=== PATIENT | male | born 1940 | race Caucasian/White ===

== ENCOUNTER 2018-06-18 13:13 | Outpatient (CLI) | payer MEDICARE, SELFPAY ==
[2018-06-18 13:42] LABS: Abs Immature Grans 0.01 k/cumm (0.0-0.09); Absolute Basophil Count 0.08 k/cumm (0.0-0.2); Absolute Eosinophil Count 0.06 k/cumm (0.0-0.7); Absolute Lymphocyte Count 1.01 k/cumm (1.2-3.4); Absolute Monocyte Count 0.54 k/cumm (0.11-0.7); Absolute Neutrophil Count 2.57 k/cumm (1.2-6.7); Basophils % 1.9; Eosinophils % 1.4; HGB 11.1 g/dL (13.5-17.5); Immature Grans % 0.2; Lymphocytes % 23.7; Mean Corp. HGB Concentration 31.7 g/dL (32.0-36.0); Mean Corpuscular Hemoglobin 33.6 pg (27.0-33.0); Mean Corpuscular Volume 106.1 fL (80-95); Mean Platelet Volume 8.5 fL (8.0-11.0); Monocytes % 12.6; Neutrophils % 60.2; Platelet Count 342 x1000/uL (130-400); RBC Distribution Width 17.2 % (11.8-14.1); White Blood Cell Count 4.27 k/cumm (4.4-10.8)
[2018-06-18 14:42] LABS: ALT 21 U/L (12-78); AST 19 U/L (15-37); Albumin 3.1 g/dL (3.4-5.0); Alkaline Phosphatase 81 U/L (46-116); Anion Gap 5.9 mmol/L (3-11); BUN 23 mg/dL (7-18); Bilirubin, Total 0.2 mg/dL (0.2-1.0); CO2 32.1 mmol/L (21.0-32.0); CREATININE 1.08 mg/dL (0.70-1.30); Calcium 8.2 mg/dL (8.5-10.1); Chloride 107 mmol/L (98-107); Glucose 110 mg/dL (70-100); Potassium 5.2 mmol/L (3.5-5.1); Sodium 145 mmol/L (136-145); Total Protein 6.1 g/dL (6.4-8.2)
[2018-06-19 10:14] LABS: PSA, Diagnostic 21.5 ng/ml (0-6.5)
[2018-06-20 17:07] LABS: Testosterone, Total <7.0 ng/dL (240-950)
== END 2018-06-18 13:14 ==
PROVIDERS: PCP Internal Medicine; Visit Provider Internal Medicine
DX: C61 Malignant neoplasm of prostate (principal)
CPT/HCPCS: 36415; 80053; 84403; 84153; 85025

== ENCOUNTER 2018-07-09 13:29 | Outpatient (CLI) | payer MEDICARE, SELFPAY ==
[2018-07-09 14:13] LABS: Abs Immature Grans 0.01 k/cumm (0.0-0.09); Absolute Basophil Count 0.05 k/cumm (0.0-0.2); Absolute Eosinophil Count 0.03 k/cumm (0.0-0.7); Absolute Lymphocyte Count 1.06 k/cumm (1.2-3.4); Absolute Monocyte Count 0.71 k/cumm (0.11-0.7); Absolute Neutrophil Count 4.06 k/cumm (1.2-6.7); Basophils % 0.8; Eosinophils % 0.5; HCT 33.3 % (40.0-50.0); HGB 10.5 g/dL (13.5-17.5); Immature Grans % 0.2; Lymphocytes % 17.9; Mean Corp. HGB Concentration 31.5 g/dL (32.0-36.0); Mean Corpuscular Hemoglobin 33.3 pg (27.0-33.0); Mean Corpuscular Volume 105.7 fL (80-95); Mean Platelet Volume 8.9 fL (8.0-11.0); Neutrophils % 68.6; Platelet Count 337 x1000/uL (130-400); RBC 3.15 m/cumm (4.50-6.00); RBC Distribution Width 16.9 % (11.8-14.1); White Blood Cell Count 5.92 k/cumm (4.4-10.8)
[2018-07-09 15:19] LABS: ALT 23 U/L (12-78); AST 22 U/L (15-37); Albumin 3.1 g/dL (3.4-5.0); Alkaline Phosphatase 85 U/L (46-116); BUN 32 mg/dL (7-18); Bilirubin, Total 0.2 mg/dL (0.2-1.0); CREATININE 1.21 mg/dL (0.70-1.30); Calcium 8.7 mg/dL (8.5-10.1); Chloride 107 mmol/L (98-107); Estimated GFR 58.15 (mL/min/1.73m2); Glucose 115 mg/dL (70-100); Potassium 4.9 mmol/L (3.5-5.1); Sodium 143 mmol/L (136-145)
[2018-07-10 10:28] LABS: PSA, Diagnostic 19.3 ng/ml (0-6.5)
[2018-07-11 08:04] LABS: Testosterone, Total <7.0 ng/dL (240-950)
== END 2018-07-09 13:49 ==
PROVIDERS: PCP Internal Medicine; Visit Provider Internal Medicine
DX: C61 Malignant neoplasm of prostate (principal); C79.51 Secondary malignant neoplasm of bone
CPT/HCPCS: 80053; 84403; 84153; 85025

== ENCOUNTER 2018-08-09 12:41 | Outpatient (CLI) | payer MEDICARE, SELFPAY ==
[2018-08-09 13:11] LABS: Absolute Basophil Count 0.02 k/cumm (0.0-0.2); Absolute Eosinophil Count 0.34 k/cumm (0.0-0.7); Absolute Lymphocyte Count 0.96 k/cumm (1.2-3.4); Absolute Monocyte Count 0.41 k/cumm (0.11-0.7); Absolute Neutrophil Count 2.37 k/cumm (1.2-6.7); Basophils % 0.5; Eosinophils % 8.3; HCT 37.6 % (40.0-50.0); HGB 11.9 g/dL (13.5-17.5); Lymphocytes % 23.4; Mean Corp. HGB Concentration 31.6 g/dL (32.0-36.0); Mean Corpuscular Hemoglobin 33.3 pg (27.0-33.0); Mean Corpuscular Volume 105.3 fL (80-95); Mean Platelet Volume 8.8 fL (8.0-11.0); Neutrophils % 57.8; Platelet Count 208 x1000/uL (130-400); RBC 3.57 m/cumm (4.50-6.00); RBC Distribution Width 15.3 % (11.8-14.1)
[2018-08-09 13:40] LABS: ALT 27 U/L (12-78); AST 22 U/L (15-37); Albumin 3.2 g/dL (3.4-5.0); Alkaline Phosphatase 85 U/L (46-116); Anion Gap 5.3 mmol/L (3-11); BUN 25 mg/dL (7-18); Bilirubin, Total 0.3 mg/dL (0.2-1.0); CO2 33.7 mmol/L (21.0-32.0); CREATININE 0.92 mg/dL (0.70-1.30); Chloride 105 mmol/L (98-107); Glucose 104 mg/dL (70-100); Potassium 4.1 mmol/L (3.5-5.1); Sodium 144 mmol/L (136-145); Total Protein 6.8 g/dL (6.4-8.2)
[2018-08-10 09:53] LABS: PSA, Diagnostic 29.7 ng/ml (0-6.5)
== END 2018-08-09 13:01 ==
PROVIDERS: PCP Internal Medicine; Visit Provider Nurse Practitioner Family
DX: C61 Malignant neoplasm of prostate (principal); C79.51 Secondary malignant neoplasm of bone
CPT/HCPCS: 36415; 80053; 84153; 85025

== ENCOUNTER 2018-08-10 00:35 | Outpatient (CLI) | payer MEDICARE, SELFPAY ==
[2018-08-10] MEDS: Omnipaque 350 MG/ML 50 ML BTL PO (08:52)
[2018-08-10] MEDS: Breeza Beverage 473 ML BTL PO ×2 (08:53→08:54)
--- NOTE | 2018-08-10 10:00 | DI.NM_ITS ---
SYMPTOMS/DIAGNOSIS: PROSTATE CA, METASTATIC, C61, RESTAGING EXAM WHOLE BODY BONE SCAN: Comparison is made with January,. 26.0 mCi of technetium 99m MDP were administered IV. Increased activity is again noted in multiple bilateral ribs in a linear fashion laterally consistent with previous trauma. Increased activity is also seen in both AC joints, likely representing degenerative change. The evaluation of the pelvis is limited by a distended urinary bladder. There is mildly increased activity in the upper thoracic spine. There are mild compression fractures seen on CT. There is again noted to be a large focus of increased activity involving the left side of the sacrum and medial aspect of the left ilium. The findings are grossly unchanged. IMPRESSION: Stable activity in the sacrum. Stable increased activity in the upper thoracic spine consistent with compression fractures. Increased activity in multiple ribs consistent with rib fractures.
--- NOTE | 2018-08-10 10:36 | DI.CT_ITS ---
SYMPTOMS/DIAGNOSIS: PROSTATE CA METASTATIC TO MULTIPLE SITES, C61, RESTAGING CT OF THE CHEST, ABDOMEN AND PELVIS: Comparison is made with January,. Images were performed from the clavicles through the ischial tuberosities after oral and IV contrast. CHEST CT: There has been increased size in previously noted mediastinal and hilar adenopathy. There has been enlargement in multiple right paratracheal nodes, as well as left paraaortic nodes. The pretracheal node is unchanged at 2.7 cm in greatest transverse dimension. The subcarinal adenopathy measures 4.7 cm transverse. No pleural or pericardial effusions are seen. Linear densities are noted at the left lung base. No pulmonary nodules, infiltrates or effusions are seen. There are stable mild compression fractures of T2 and T3. Multiple bilateral rib fractures are seen, which appear subacute. No lytic or blastic lesion is seen. ABDOMEN AND PELVIC CT: The large destructive lesion is again seen involving the sacrum with significant bony erosion of the right side of the sacrum and adjacent aspect of the medial ilium. Heterogeneous densities are also seen in the right sacrum and right ilium. Mixed lytic and sclerotic lesion is again seen in the L5 vertebral body. There is mild compression of the L3 vertebral body, which is unchanged. Lucencies are seen in both pubic symphyses, which appear unchanged. The findings could possibly represent radiation changes. A sclerotic lesion in the inferior right ilium is again noted. The liver, gallbladder, spleen, adrenals and pancreas are unremarkable. There are a few small renal cysts. The urinary bladder is quite distended. The patient is status post prostatectomy. There is no bladder wall thickening. There is a 1 cm subdiaphragmatic lymph node, to the right of the lower esophagus. Other tiny lymph nodes are seen along the aorta. There is a moderate to increased quantity of stool. There is no abnormal bowel dilatation or inflammatory change. IMPRESSION: Mild increase in size of hilar and mediastinal adenopathy. Bilateral rib fractures. Stable mild compression fractures of T2 and T3. Stable appearance of destructive metastatic lesion in the left side of the sacrum. Other heterogeneous areas are noted in the right side of the sacrum, as well as the pubic symphysis and in the L5 vertebral body. The findings could represent metastatic disease and/or radiation change. The findings appear stable.
[2018-08-10] MEDS: Omnipaque 350 MG/ML 100 ML BTL IJ (10:46)
== END 2018-08-10 00:55 ==
PROVIDERS: PCP Internal Medicine; Visit Provider Internal Medicine
DX: C61 Malignant neoplasm of prostate (principal); M48.54XD Collapsed vertebra, not elsewhere classified, thoracic region, subsequent encounter for fracture with routine healing; S22.42XD Multiple fractures of ribs, left side, subsequent encounter for fracture with routine healing; R59.0 Localized enlarged lymph nodes; D48.0 Neoplasm of uncertain behavior of bone and articular cartilage
CPT/HCPCS: 74177; 78306; 71260; J3490; Q9967

== ENCOUNTER 2018-09-24 12:52 | Outpatient (CLI) | payer MEDICARE, SELFPAY ==
[2018-09-24 13:31] LABS: Absolute Basophil Count 0.03 k/cumm (0.0-0.2); Absolute Eosinophil Count 0.27 k/cumm (0.0-0.7); Absolute Lymphocyte Count 1.29 k/cumm (1.2-3.4); Absolute Monocyte Count 0.43 k/cumm (0.11-0.7); Absolute Neutrophil Count 1.79 k/cumm (1.2-6.7); Basophils % 0.8; Eosinophils % 7.1; HCT 40.6 % (40.0-50.0); HGB 13.2 g/dL (13.5-17.5); Lymphocytes % 33.9; Mean Corp. HGB Concentration 32.5 g/dL (32.0-36.0); Mean Corpuscular Hemoglobin 33.1 pg (27.0-33.0); Mean Corpuscular Volume 101.8 fL (80-95); Mean Platelet Volume 8.8 fL (8.0-11.0); Monocytes % 11.3; Neutrophils % 46.9; Platelet Count 212 x1000/uL (130-400); RBC 3.99 m/cumm (4.50-6.00); RBC Distribution Width 14.5 % (11.8-14.1); White Blood Cell Count 3.81 k/cumm (4.4-10.8)
[2018-09-24 13:42] LABS: ALT 25 U/L (12-78); AST 21 U/L (15-37); Albumin 3.3 g/dL (3.4-5.0); Alkaline Phosphatase 85 U/L (46-116); Anion Gap 3.4 mmol/L (3-11); BUN 20 mg/dL (7-18); Bilirubin, Total 0.2 mg/dL (0.2-1.0); CO2 33.6 mmol/L (21.0-32.0); CREATININE 0.93 mg/dL (0.70-1.30); Chloride 106 mmol/L (98-107); Glucose 112 mg/dL (70-100); Potassium 4.7 mmol/L (3.5-5.1); Sodium 143 mmol/L (136-145)
[2018-09-25 09:55] LABS: PSA, Diagnostic 1.9 ng/ml (0-6.5)
[2018-09-27 11:38] LABS: Testosterone, Total <7.0 ng/dL (240-950)
== END 2018-09-24 13:12 ==
PROVIDERS: PCP Internal Medicine; Visit Provider Internal Medicine
DX: C61 Malignant neoplasm of prostate (principal); C79.51 Secondary malignant neoplasm of bone
CPT/HCPCS: 36415; 80053; 84403; 84153; 85025

== ENCOUNTER 2018-10-12 14:02 | Outpatient (REF) | payer MEDICARE, SELFPAY ==
[2018-10-12 17:01] LABS: Bilirubin Negative (Negative); Blood Trace-intact (Negative); Clarity Sl Cloudy; Glucose Negative (Negative); Ketones Negative (Negative); Leukocyte Esterase Large (Negative); Nitrite Negative (Negative); Urobilinogen 0.2 EU/dL (Up TO 0.2); pH >= 9.0 (5-8)
[2018-10-12 17:48] LABS: Bacteria Packed HPF (Negative); Crystals Few Triple Phos HPF (Negative); Epithelial Cells Rare HPF (Negative); RBC 0-2 (0-2)
[2018-10-12 17:49] LABS: C & S Indicated? C&S Done As Ordered; Casts Negative LPF (Negative); Mucus Moderate (Negative)
== END 2018-10-12 14:22 ==
LOC: NCHCN 14:02
PROVIDERS: PCP Internal Medicine; Visit Provider Internal Medicine
DX: R30.0 Dysuria (principal)
CPT/HCPCS: 81003; 81015; 87086; 87186

== ENCOUNTER 2018-10-29 18:21 | Outpatient (REF) | payer MEDICARE, SELFPAY ==
[2018-10-31 11:37] LABS: Bilirubin Negative (Negative); Blood Trace-intact (Negative); Clarity Cloudy; Glucose Negative (Negative); Ketones Negative (Negative); Leukocyte Esterase Moderate (Negative); Nitrite Negative (Negative); Urobilinogen 0.2 EU/dL (Up TO 0.2); pH >= 9.0 (5-8)
[2018-10-31 12:12] LABS: C & S Indicated? Yes; WBC >50 HPF (0-5)
== END 2018-10-29 18:41 ==
LOC: NCHCN 18:21
PROVIDERS: PCP Internal Medicine; Visit Provider Family Medicine
DX: N39.0 Urinary tract infection, site not specified (principal); Z16.24 Resistance to multiple antibiotics
CPT/HCPCS: 87077; 81003; 81015; 87086; 87186

== ENCOUNTER 2018-11-12 13:04 | Outpatient (CLI) | payer MEDICARE, SELFPAY ==
[2018-11-14 11:56] LABS: PSA, Diagnostic 0.7 ng/ml (0-6.5)
[2018-11-15 16:38] LABS: Testosterone, Total <7.0 ng/dL (240-950)
== END 2018-11-12 13:24 ==
PROVIDERS: PCP Internal Medicine; Visit Provider Internal Medicine
DX: C61 Malignant neoplasm of prostate (principal); C79.51 Secondary malignant neoplasm of bone
CPT/HCPCS: 36415; 84153; 84403

== ENCOUNTER → 2018-12-18 12:17 | Outpatient (BNVA) | payer MEDICARE, SELFPAY | PROVIDERS: PCP Internal Medicine; Visit Provider Psychiatry & Neurology Neurology | DX: G54.0 Brachial plexus disorders (principal); G62.0 Drug-induced polyneuropathy; T45.1X5A Adverse effect of antineoplastic and immunosuppressive drugs, initial encounter; I12.9 Hypertensive chronic kidney disease with stage 1 through stage 4 chronic kidney disease, or unspecified chronic kidney disease; N18.3 Chronic kidney disease, stage 3 (moderate); Z85.46 Personal history of malignant neoplasm of prostate | CPT/HCPCS: 99205; 99215 ==

== ENCOUNTER → 2019-01-31 12:21 | Outpatient (BNVA) | payer MEDICARE, SELFPAY | PROVIDERS: PCP Internal Medicine; Visit Provider Psychiatry & Neurology Neurology | DX: G62.0 Drug-induced polyneuropathy (principal); T45.1X5A Adverse effect of antineoplastic and immunosuppressive drugs, initial encounter; M75.102 Unspecified rotator cuff tear or rupture of left shoulder, not specified as traumatic; I10 Essential (primary) hypertension | CPT/HCPCS: 99213 ==

== ENCOUNTER 2019-02-04 12:37 | Outpatient (CLI) | payer MEDICARE, SELFPAY ==
[2019-02-04 13:16] LABS: Abs Immature Grans 0.01 k/cumm (0.0-0.09); Absolute Basophil Count 0.02 k/cumm (0.0-0.2); Absolute Eosinophil Count 0.19 k/cumm (0.0-0.7); Absolute Monocyte Count 0.47 k/cumm (0.11-0.7); Basophils % 0.5; Eosinophils % 4.8; HCT 43.7 % (40.0-50.0); HGB 14.5 g/dL (13.5-17.5); Immature Grans % 0.3; Lymphocytes % 35.1; Mean Corp. HGB Concentration 33.2 g/dL (32.0-36.0); Mean Corpuscular Hemoglobin 33.8 pg (27.0-33.0); Mean Corpuscular Volume 101.9 fL (80-95); Mean Platelet Volume 9.3 fL (8.0-11.0); Monocytes % 11.8; Neutrophils % 47.5; Platelet Count 221 x1000/uL (130-400); RBC 4.29 m/cumm (4.50-6.00); RBC Distribution Width 13.6 % (11.8-14.1); White Blood Cell Count 3.99 k/cumm (4.4-10.8)
[2019-02-04 14:29] LABS: ALT 21 U/L (12-78); AST 20 U/L (15-37); Albumin 3.5 g/dL (3.4-5.0); Alkaline Phosphatase 92 U/L (46-116); Anion Gap 5.9 mmol/L (3-11); BUN 19 mg/dL (7-18); Bilirubin, Total 0.4 mg/dL (0.2-1.0); CO2 32.1 mmol/L (21.0-32.0); CREATININE 0.82 mg/dL (0.70-1.30); Chloride 105 mmol/L (98-107); Glucose 97 mg/dL (70-100); Potassium 4.7 mmol/L (3.5-5.1); Sodium 143 mmol/L (136-145); Total Protein 6.7 g/dL (6.4-8.2)
[2019-02-07 12:46] LABS: Testosterone, Total 7.9 ng/dL (240-950)
== END 2019-02-04 12:57 ==
PROVIDERS: PCP Internal Medicine; Visit Provider Internal Medicine
DX: C61 Malignant neoplasm of prostate (principal); C79.51 Secondary malignant neoplasm of bone
CPT/HCPCS: 36415; 80053; 84403; 84153; 85025

== ENCOUNTER 2019-02-12 00:31 | Outpatient (CLI) | payer MEDICARE, SELFPAY ==
--- NOTE | 2019-02-12 10:40 | DI.RAD_ITS ---
SYMPTOM/DIAGNOSIS: LEG PAIN, C61 AP PELVIS AND RIGHT HIP: Mild degenerative changes involving the right hip are demonstrated. The pelvic bones appear intact. There is no evidence of a fracture or dislocation.
--- NOTE | 2019-02-12 10:40 | DI.RAD_ITS ---
SYMPTOM/DIAGNOSIS: LEG PAIN C61 RIGHT FEMUR: The bony structures appear intact. There are moderate degenerative changes involving the hip and knee. There is no evidence of a fracture or dislocation.
--- NOTE | 2019-02-12 14:36 | DI.NM_ITS ---
SYMPTOMS/DIAGNOSIS: RIGHT LEG PAIN, RESTAGING OF METASTATIC PROSTATE CA, C61 BONE SCAN: The study was carried out with an intravenous injection of 23.9 mCi of technetium 99 MDP. Comparison is made with a previous examination from 08/10/2018. When compared with the previous examination, there has been no significant interval change. Again noted are regions of increased activity involving the right ribs in a configuration suggesting old trauma. Again noted are the areas of increased activity involving the upper T-spine where compression fractures are identified on a prior CT. Again noted is a region of increased proton density involving the medial portion of the right hemisacrum adjacent to the SI joint. SUMMARY: No appreciable interval change when compared with the prior study. Again noted are regions of increased photon density in multiple ribs consistent with rib fractures and in the upper T-spine consistent with compression fracture demonstrated at CT. An area of increased photon density in the right hemisacrum appears unchanged as well.
== END 2019-02-12 00:51 ==
PROVIDERS: PCP Internal Medicine; Visit Provider Internal Medicine
DX: C61 Malignant neoplasm of prostate (principal); M79.604 Pain in right leg; Z12.89 Encounter for screening for malignant neoplasm of other sites; M48.54XD Collapsed vertebra, not elsewhere classified, thoracic region, subsequent encounter for fracture with routine healing; S22.41XD Multiple fractures of ribs, right side, subsequent encounter for fracture with routine healing; M17.11 Unilateral primary osteoarthritis, right knee; M16.11 Unilateral primary osteoarthritis, right hip
CPT/HCPCS: 73552; 78306; 72170

== ENCOUNTER 2019-03-18 12:02 | Outpatient (CLI) | payer MEDICARE, SELFPAY ==
[2019-03-18 12:37] LABS: Absolute Basophil Count 0.01 k/cumm (0.0-0.2); Absolute Eosinophil Count 0.22 k/cumm (0.0-0.7); Absolute Lymphocyte Count 1.04 k/cumm (1.2-3.4); Absolute Monocyte Count 0.48 k/cumm (0.11-0.7); Basophils % 0.2; Eosinophils % 5.1; HCT 43.2 % (40.0-50.0); HGB 14.2 g/dL (13.5-17.5); Lymphocytes % 23.9; Mean Corp. HGB Concentration 32.9 g/dL (32.0-36.0); Mean Corpuscular Hemoglobin 33.9 pg (27.0-33.0); Mean Corpuscular Volume 103.1 fL (80-95); Mean Platelet Volume 9.1 fL (8.0-11.0); Neutrophils % 59.8; Platelet Count 202 x1000/uL (130-400); RBC 4.19 m/cumm (4.50-6.00); RBC Distribution Width 13.8 % (11.8-14.1); White Blood Cell Count 4.35 k/cumm (4.4-10.8)
[2019-03-18 12:44] LABS: ALT 21 U/L (12-78); AST 16 U/L (15-37); Albumin 3.2 g/dL (3.4-5.0); Alkaline Phosphatase 92 U/L (46-116); Anion Gap 6.4 mmol/L (3-11); BUN 22 mg/dL (7-18); Bilirubin, Total 0.3 mg/dL (0.2-1.0); CO2 30.6 mmol/L (21.0-32.0); CREATININE 0.97 mg/dL (0.70-1.30); Calcium 8.9 mg/dL (8.5-10.1); Chloride 109 mmol/L (98-107); Glucose 131 mg/dL (70-100); Potassium 4.3 mmol/L (3.5-5.1); Sodium 146 mmol/L (136-145); Total Protein 6.7 g/dL (6.4-8.2)
[2019-03-19 10:13] LABS: PSA, Diagnostic 2.8 ng/ml (0-6.5)
[2019-03-22 11:05] LABS: Testosterone, Total 7.2 ng/dL (240-950)
== END 2019-03-18 12:22 ==
PROVIDERS: PCP Internal Medicine; Visit Provider Internal Medicine
DX: C61 Malignant neoplasm of prostate (principal); C79.51 Secondary malignant neoplasm of bone
CPT/HCPCS: 36415; 80053; 84403; 84153; 85025

== ENCOUNTER 2019-04-23 00:40 | Outpatient (CLI) | payer MEDICARE, SELFPAY ==
--- NOTE | 2019-04-23 10:00 | DI.CT_ITS ---
SYMPTOMS/DIAGNOSIS: PROSTATE CANCER METASTATIC TO MULTIPLE SITES, C61, RESTAGING METASTATIC PROSTATE CANCER CT OF THE CHEST, ABDOMEN AND PELVIS: Comparison is made with . There has been significant decrease in size of previously noted hilar and mediastinal adenopathy which now appears within normal limits. The largest node in the subcarinal region measures 1.5 cm. There are no pleural or pericardial effusions. The lungs appear clear. There are pulmonary nodules. There are stable compression fractures of T 2 and T 3. Multiple bilateral rib fractures are again noted. There is sclerosis in the region of the fractures. The fractures may be pathologic. There is a small focus of increased activity in the manubrium on the right side. This was not definitely seen on the previous exam. The liver, spleen, pancreas, kidneys and adrenals are unremarkable. The patient is status post prostatectomy. The urinary bladder is somewhat distended but shows no focal abnormality. No pelvic lymph nodes are seen. Tiny lymph nodes are noted in the periaortic region which appears stable. There are not pathologically enlarged, measuring less than a centimeter in size. The largest destructive lesion is again noted in the left side of the sacrum. Abnormal lucency and sclerosis is noted throughout the upper and mid sacrum. Normal sclerotic lesions are seen scattered in both khris, unchanged. A few sclerotic lesions are seen in the L 5 vertebral body as well as posterior elements. A few sclerotic lesions are now seen within the L 3 and L 4 vertebral bodies as well as posterior elements. Multiple small sclerotic foci are now seen in bilateral femurs and bilateral ischia. IMPRESSION: 1. Significant interval reduction in size of hilar and mediastinal adenopathy. 2. Increased number of scattered sclerotic lesions seen in the pelvis and lower lumbar spine. The area of destruction of the left side of the sacrum appears stable.
[2019-04-23 11:03] LABS: Abs Immature Grans 0.01 k/cumm (0.0-0.09); Absolute Basophil Count 0.02 k/cumm (0.0-0.2); Absolute Eosinophil Count 0.17 k/cumm (0.0-0.7); Absolute Lymphocyte Count 0.74 k/cumm (1.2-3.4); Absolute Monocyte Count 0.61 k/cumm (0.11-0.7); Absolute Neutrophil Count 2.95 k/cumm (1.2-6.7); Basophils % 0.4; Eosinophils % 3.8; HCT 42.4 % (40.0-50.0); HGB 13.9 g/dL (13.5-17.5); Immature Grans % 0.2; Lymphocytes % 16.4; Mean Corp. HGB Concentration 32.8 g/dL (32.0-36.0); Mean Corpuscular Hemoglobin 33.5 pg (27.0-33.0); Mean Corpuscular Volume 102.2 fL (80-95); Mean Platelet Volume 9.1 fL (8.0-11.0); Monocytes % 13.6; Neutrophils % 65.6; Platelet Count 211 x1000/uL (130-400); RBC 4.15 m/cumm (4.50-6.00); RBC Distribution Width 13.8 % (11.8-14.1)
[2019-04-23 11:22] LABS: ALT 29 U/L (12-78); AST 47 U/L (15-37); Albumin 3.3 g/dL (3.4-5.0); Alkaline Phosphatase 91 U/L (46-116); BUN 19 mg/dL (7-18); Bilirubin, Total 0.4 mg/dL (0.2-1.0); CREATININE 0.95 mg/dL (0.70-1.30); Calcium 9.3 mg/dL (8.5-10.1); Chloride 104 mmol/L (98-107); Glucose 107 mg/dL (70-100); Potassium 4.1 mmol/L (3.5-5.1); Sodium 143 mmol/L (136-145); Total Protein 6.9 g/dL (6.4-8.2)
[2019-04-23] MEDS: Omnipaque 350 MG/ML 100 ML BTL IJ (12:19)
[2019-04-23] MEDS: Omnipaque 350 MG/ML 50 ML BTL IJ (12:20)
[2019-04-23] MEDS: Breeza Beverage 473 ML BTL PO (12:20)
[2019-04-24 09:28] LABS: PSA, Diagnostic 6.7 ng/ml (0-6.5)
[2019-04-25 14:16] LABS: Testosterone, Total <7.0 ng/dL (240-950)
== END 2019-04-23 01:00 ==
PROVIDERS: PCP Internal Medicine; Visit Provider Internal Medicine
DX: C61 Malignant neoplasm of prostate (principal); C79.51 Secondary malignant neoplasm of bone; R59.0 Localized enlarged lymph nodes; M48.54XD Collapsed vertebra, not elsewhere classified, thoracic region, subsequent encounter for fracture with routine healing; R91.8 Other nonspecific abnormal finding of lung field; S22.43XD Multiple fractures of ribs, bilateral, subsequent encounter for fracture with routine healing
CPT/HCPCS: 36415; 74177; 80053; 84403; 71260; 84153; 85025; J3490; Q9967

== ENCOUNTER 2019-04-29 13:30 | Outpatient (CLI) | payer MEDICARE, SELFPAY ==
[2019-04-29 13:53] LABS: Abs Immature Grans 0.01 k/cumm (0.0-0.09); Absolute Basophil Count 0.02 k/cumm (0.0-0.2); Absolute Eosinophil Count 0.25 k/cumm (0.0-0.7); Absolute Lymphocyte Count 1.19 k/cumm (1.2-3.4); Absolute Neutrophil Count 3.48 k/cumm (1.2-6.7); Basophils % 0.4; Eosinophils % 4.6; HCT 41.6 % (40.0-50.0); HGB 13.9 g/dL (13.5-17.5); Immature Grans % 0.2; Lymphocytes % 21.8; Mean Corp. HGB Concentration 33.4 g/dL (32.0-36.0); Mean Corpuscular Hemoglobin 34.1 pg (27.0-33.0); Mean Platelet Volume 8.9 fL (8.0-11.0); Monocytes % 9.2; Neutrophils % 63.8; Platelet Count 249 x1000/uL (130-400); RBC 4.08 m/cumm (4.50-6.00); RBC Distribution Width 13.5 % (11.8-14.1); White Blood Cell Count 5.45 k/cumm (4.4-10.8)
[2019-04-29 14:19] LABS: ALT 27 U/L (12-78); AST 24 U/L (15-37); Albumin 3.2 g/dL (3.4-5.0); Alkaline Phosphatase 100 U/L (46-116); Anion Gap 6.2 mmol/L (3-11); BUN 19 mg/dL (7-18); Bilirubin, Total 0.3 mg/dL (0.2-1.0); CO2 31.8 mmol/L (21.0-32.0); CREATININE 0.91 mg/dL (0.70-1.30); Calcium 8.8 mg/dL (8.5-10.1); Chloride 106 mmol/L (98-107); Glucose 127 mg/dL (70-100); Potassium 4.4 mmol/L (3.5-5.1); Sodium 144 mmol/L (136-145)
[2019-05-01 14:06] LABS: Testosterone, Total 10 ng/dL (240-950)
== END 2019-04-29 13:50 ==
PROVIDERS: PCP Internal Medicine; Visit Provider Internal Medicine
DX: C61 Malignant neoplasm of prostate (principal); C79.51 Secondary malignant neoplasm of bone
CPT/HCPCS: 36415; 80053; 84403; 84153; 85025

== ENCOUNTER 2019-05-01 12:27 | Inpatient (IN) | payer MEDICARE, SELFPAY ==
[2019-05-01] VITALS (41 sets, daily range): BP systolic 94–161; BP diastolic 50–124; PULSE 74–99; RESP 13–29; TEMP 36.9–38; O2SAT 84–100
--- NOTE | 2019-05-01 12:36 | DI.CT_ITS ---
SYMPTOMS/DIAGNOSIS: ALTERED MENTAL STATUS, KNOWN CANCER WITH METS CRANIAL CT: A noncontrast enhanced examination was performed. Atrophic changes consistent with age are demonstrated. There is no evidence of an intra/extra-axial hemorrhage, or mass or edema. There are regions of diminished absorption in the frontoparietal and periventricular white matter consistent with small vessel disease. The ventricles are unremarkable. There is no evidence of a skull fracture. The paranasal sinuses are normal. There is no evidence of a mastoid effusion. SUMMARY: No acute intracranial abnormality is seen.
--- NOTE | 2019-05-01 12:37 | DI.RAD_ITS ---
SYMPTOMS/DIAGNOSIS: CONFUSION, COUGH AP UPRIGHT CHEST: Allowing for poor inspiratory effort, there are no gross infiltrates in the lungs. The heart appears somewhat enlarged. Note is incidentally made of severe degenerative changes involving both shoulders. SUMMARY: No evidence of acute cardiopulmonary disease.
--- NOTE | 2019-05-01 12:42 | ED.GENADUL_ITS ---
Discharge Plan Disposition Patient Disposition: [facility] INPATIENT Condition: Stable Discharge Details Chief Complaint: AMS/LOC Clinical Impression: Acute alteration in mental status, Decubitus ulcer, Leukocytosis Primary Care Provider: Tonny Leslie ED Provider: Yuniel Gutiérrez Home Meds and New Rx's Prescriptions: No Action ascorbic acid (vitamin C) [Vitamin C] 1,000 MG tablet 1,000 mg PO DAILY RF: 0 metoprolol succinate 100 MG tablet extended release 24 hr 100 mg PO DAILY RF: 0 Lupron Depot (4 month) 30 MG syringe kit 30 mg IM .Q4 months RF: 0 furosemide 20 MG tablet 20 mg PO DAILY RF: 0 multivitamin tablet 1 tab PO DAILY RF: 0 amlodipine 5 mg tablet 5 mg PO DAILY RF: 0 betamethasone dipropionate 0.05 % cream 1 applic TP BID PRNRF: 0 fluticasone propionate 50 mcg/actuation spray,suspension 1 spray BRIAN DAILY RF: 0 Xgeva 120 mg/1.7 mL (70 mg/mL) solution 120 mg SC Q4W RF: 0 Xtandi 40 mg capsule 160 mg PO DAILY RF: 0 lisinopril 5 mg tablet 10 mg PO DAILY Qty: 2 RF: 0 gabapentin 300 mg capsule 600 mg PO TID RF: 0 calcium carbonate-vitamin D3 500 mg calcium- 400 unit/5 mL liquid PO DAILY RF: 0 oxycodone 15 mg tablet 7.5 mg PO BID PRNRF: 0 fentanyl 50 mcg/hr patch 72 hour 1 patch TD Q72H RF: 0 Medical Decision Making This is a pleasant 78-year-old male with past medical history of metastatic prostate cancer who presents today for evaluation of confusion and altered mental status. He did fall and hit his head 1 week ago. He is not on blood thinners. This morning he is notably confused and altered. EMS has brought the patient in. He is currently on hormonal therapy for his prostate cancer. Accu-Chek is normal. EKG is relatively benign. No focal neurologic deficits but notable confusion. No fever, no clinical evidence of meningitis. We will gently rehydrate, evaluate for infectious etiology, get CT scan of the head. 4:12 PM Patient's laboratory work-up is returned, he demonstrates an elevated white count of 15, mild left shift, no bandemia. PCO2 slightly elevated at 59. Potassium slightly elevated at 5.2. BUN 33, creatinine 1.31, lactate 1.8. Troponin normal, ammonia less than 10, troponin normal, proBNP slightly elevated at 1600, TSH normal, urinalysis negative for infection. Chest x-ray shows no evidence of pneumonia. I am concerned that the patient's cubitus ulcer may be the source of his infection. On reassessment after gentle rehydration the patient is notably improved in his mental status, he is still fairly weak. Repeat neurologic assessment shows continued no focal neurologic deficits. He is now ANO x2. is at bedside. Out of concern for the decubitus ulcer causing his signs of infection, as well as his initial altered mental status, we will give clindamycin for treatment of this. I see no evidence of focal neurologic deficits suggesting stroke, especially in conjunction with a negative CT scan of his head. I do not see any indication for TPA administration at this time. I feel this is more an infectious etiology, slightly worsened by minimal hypercarbia. With his notable improvement though at this time, I feel that it is more likely infectious this primary source. Because of the patient's multiple medical problems, lack of significant resources at home, I do feel that he would benefit from inpatient admission for additional home resources, gentle rehydration, and for 4 hours of IV antibiotics. I contacted Dr. Brown and discussed the case with her. I have extensively reviewed the treatment plan with the patient. I have addressed all patient concerns at this time. I have als o discussed the plan with the admitting physician and they agree with the current assessment and plan and have agreed to assume responsibility for the patient. All parties demonstrate verbal understanding and agreement with our assessment and plan at this time. EKG 12: 41 Rate 90, ER 144, QTc 482, QRS 88, sinus rhythm, no significant ST elevations or depressions, small Q waves noted in V3 and aVF. Exam(s) a CT:CT head wo SYMPTOMS/DIAGNOSIS: ALTERED MENTAL STATUS, KNOWN CANCER WITH METS CRANIAL CT: A noncontrast enhanced examination was performed. Atrophic changes consistent with age are demonstrated. There is no evidence of an intra/extra-axial hemorrhage, or mass or edema. There are regions of diminished absorption in the frontoparietal and periventricular white matter consistent with small vessel disease. The ventricles are unremarkable. There is no evidence of a skull fracture. The paranasal sinuses are normal. There is no evidence of a mastoid effusion. SUMMARY: No acute intracranial abnormality is seen. [id number]: Total DLP = 0.00 mGy-cm Exam(s) a RAD:XR chest 1V in DI dept SYMPTOMS/DIAGNOSIS: CONFUSION, COUGH AP UPRIGHT CHEST: Allowing for poor inspiratory effort, there are no gross infiltrates in the lungs. The heart appears somewhat enlarged. Note is incidentally made of severe degenerative changes involving both shoulders. SUMMARY: No evidence of acute cardiopulmonary disease. Ordered By: Yuniel Gutiérrez DO CC: HPI General Date/Time Provider Initiated Documentation: 05/01/19 12:28 . HPI Narrative: This is a 78-year-old male with past medical history of known metastatic prostate cancer, currently on Xgeva and Xtandi, also with a history of chronic left-sided rotator cuff pain, chronic hip pain, chronic kidney disease, and lichen sclerosis. Patient presents today via EMS for altered mental status. states that 1 week ago he did fall and struck his head. He has had no imaging since then. However over the last 24 hours he has become notably weak, and altered. He had a shaking episode last night which is new for him. This morning he was confused and unable to get up out of bed. No significant recent medication changes. EMS states that the Accu-Chek was within normal limits at 140. Family denies any other complaints or trauma. Patient denies any other complaints at this time. No additional modifying factors. Not currently on any blood thinners. No history of stroke or myocardial infarction. Related Data Home Medications Medication Instructions Recorded Confirmed Lupron Depot (4 month) 30 mg IM .Q4 months 09/25/17 05/01/19 ascorbic acid (vitamin C) [Vitamin 1,000 mg PO DAILY 09/25/17 05/01/19 C] furosemide 20 mg PO DAILY tab-cap 09/25/17 05/01/19 metoprolol succinate 100 mg PO DAILY tab-cap 09/25/17 05/01/19 amlodipine 5 mg tablet 5 mg PO DAILY 12/10/18 05/01/19 betamethasone dipropionate 0.05 % 1 applic TP BID PRN 12/10/18 05/01/19 topical cream calcium carbonate-vitamin D3 500 ml PO DAILY ml 12/10/18 01/31/19 mg calcium-400 unit/5 mL oral liquid denosumab 120 mg/1.7 mL (70 mg/mL) 120 mg SC Q4W 12/10/18 05/01/19 subcutaneous solution enzalutamide 40 mg capsule 160 mg PO DAILY 12/10/18 05/01/19 fluticasone propionate 50 1 spray BRIAN DAILY 12/10/18 05/01/19 mcg/actuation nasal spray,suspension gabapentin 300 mg capsule 600 mg PO TID tab-cap 12/10/18 05/01/19 lisinopril 5 mg tablet 10 mg PO DAILY #2 tab-cap 12/10/18 01/31/19 multivitamin tablet 1 tab PO DAILY 12/10/18 05/01/19 oxycodone 15 mg tablet 7.5 mg PO BID PRN tab 12/18/18 05/01/19 fentanyl 50 mcg/hr transdermal 1 patch TD Q72H 01/31/19 05/01/19 patch Allergies Allergy/AdvReac Type Severity Reaction Status Date / Time No Known Drug Allergies Allergy Unverified 05/01/19 12:42 Review of Systems Review of Systems All systems reviewed & are unremarkable except as noted in HPI and below PFSH Social History Smoking/Tobacco Use Status: Never Alcohol Intake: never Substance use type: does not use Household members: spouse Number of Children: 2 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 3.ENT: Atraumatic external nose and ears. MM. Neck: Symmetric, trachea midline, No thyromegaly. 4.CVS: +S1/S2, No murmurs or gallops. Peripheral pulses 2+ and equal in all extremities. Brisk capillary refill in all extremities. 5.RESP: Unlabored respiratory effort. Clear to auscultation bilaterally. No wheezes rales or rhonchi 6.GI: Soft, Nontender/Nondistended, No hepatosplenomegaly. No guarding or rebound. 7.MSK: Normocephalic/Atraumatic, Extremities w/o deformity or ttp No cyanosis or clubbing, Normal movement of all extremities 8.Skin: Warm, Dry. Patient does have evidence of a sacral ulcer, no active bleeding. Notable chronicity is present. 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 Patient is able to move all extrema. 10.Psych: (AAO) x1. Altered, confused Course Lab/Test Results Lab/Test Results: 05/01/19 12:37 Blood Blood Culture - Pending 05/01/19 12:37 Blood Blood Culture - Pending
[2019-05-01 13:06] LABS: BE (Venous) 5.9 mmol/L (-3-3); HCO3 (Venous) 32 mmol/L (22-28); O2 Sat (Venous) 45 % (70-80); TCO2 (Venous) 29 mmol/L (22-29); pCO2 (Venous) 59 mm/Hg (34-47); pH (Venous) 7.34 (7.32-7.43); pO2 (Venous) 27 mm/Hg (28-44)
[2019-05-01 13:08] LABS: Abs Immature Grans 0.04 k/cumm (0.0-0.09); Absolute Basophil Count 0.02 k/cumm (0.0-0.2); Absolute Eosinophil Count 0.03 k/cumm (0.0-0.7); Basophils % 0.1; Eosinophils % 0.2; HCT 39.6 % (40.0-50.0); HGB 13.1 g/dL (13.5-17.5); Immature Grans % 0.3; Lactate-non-spesis 1.8 mmol/l (0.6-1.4); Lymphocytes % 3.5; Mean Corp. HGB Concentration 33.1 g/dL (32.0-36.0); Mean Corpuscular Hemoglobin 33.9 pg (27.0-33.0); Mean Corpuscular Volume 102.6 fL (80-95); Mean Platelet Volume 9.3 fL (8.0-11.0); Monocytes % 4.5; Neutrophils % 91.4; Platelet Count 260 x1000/uL (130-400); RBC 3.86 m/cumm (4.50-6.00); RBC Distribution Width 14.1 % (11.8-14.1); White Blood Cell Count 15.04 k/cumm (4.4-10.8)
[2019-05-01 13:09] LABS: Absolute Lymphocyte Count 0.53 k/cumm (1.2-3.4); Absolute Monocyte Count 0.68 k/cumm (0.11-0.7); Absolute Neutrophil Count 13.75 k/cumm (1.2-6.7)
[2019-05-01 13:26] LABS: Prothrombin Time 10.1 sec (9.3-11.0)
[2019-05-01 13:30] LABS: Ammonia < 10 umol/L (11-32)
[2019-05-01 13:36] LABS: ALT 23 U/L (12-78); AST 24 U/L (15-37); Albumin 3.1 g/dL (3.4-5.0); Alkaline Phosphatase 81 U/L (46-116); Anion Gap 5.2 mmol/L (3-11); BUN 33 mg/dL (7-18); Bilirubin, Total 0.8 mg/dL (0.2-1.0); CO2 31.8 mmol/L (21.0-32.0); CREATININE 1.31 mg/dL (0.70-1.30); Chloride 104 mmol/L (98-107); Estimated GFR 53.06 (mL/min/1.73m2); Glucose 146 mg/dL (70-100); Magnesium 2.1 mg/dL (1.8-2.4); NT-proBNP 1606 pg/mL; Potassium 5.2 mmol/L (3.5-5.1); Sodium 141 mmol/L (136-145); TSH (W/Ref FT4) 0.82 uIU/mL (0.358-3.74); Troponin I < 0.05 ng/mL (0.00-0.06)
[2019-05-01] MEDS: Normal Saline 500 ML 1000 ML IV (13:41)
[2019-05-01 15:06] LABS: Bilirubin Negative (Negative); Blood Trace-intact (Negative); Clarity Clear (Clear); Glucose Negative (Negative); Ketones Negative (Negative); Leukocyte Esterase Negative (Negative); Nitrite Negative (Negative); Urobilinogen 0.2 EU/dL (Up TO 0.2); pH 5.5 (5-8)
[2019-05-01 15:16] LABS: Bacteria Few HPF (Negative); Crystals Negative HPF (Negative); Epithelial Cells Few HPF (Negative); Mucus Moderate (Negative)
[2019-05-01 15:17] LABS: C & S Indicated? C&S Done As Ordered; Casts 0-2 Hyaline LPF (Negative)
[2019-05-01] MEDS: CLINDAMYCIN 600 MG/50 ML BAG 100 MG IVPB (16:02)
[2019-05-01] MEDS: Heparin 5,000 UNITS/ML VIAL 5000 UNITS SC ×2 (17:43→23:40)
--- NOTE | 2019-05-01 18:40 | NUR.NOTE ---
Nursing Note: Pt to [facility] floor from ER at 1640. Pt's at bedside. Pt A&Ox2; confused with increasing confusion over last week per . Bed alarms on, call lindsay within reach. VSS. RN will continue to monitor.
[2019-05-01] MEDS: SODIUM CHLORIDE 0.45% 1,000 ML 125 ML IV (19:21)
--- NOTE | 2019-05-01 19:39 | HPE_ITS ---
Date of service: 05/01/19 Time of Service: 19:16 Assessment and Plan (1) Sepsis: Current visit: Yes Status: Acute Due to cellulitis of BLE's and buttocks/decubitous ulcers. The patient was initivated on clindamycin in ED; Start vancomycin/cefazolin. Monitor Blood cultures. (2) Toxic metabolic encephalopathy: Current visit: Yes Status: Acute Likely due to infection; however, the patient fell 1 week ago - there is a possibility of a post-concussive syndrome. Patient's twitching could be from CO2 retention or gabapentin toxicity. Obtain ABG. May require BiPAP tonight. Patient is DNR, but not DNI, per my conversation with his . (3) Cellulitis of multiple sites of buttock: Current visit: Yes Status: Acute Obtain wound care consult. Place lomeli catheter. Cover with vancomycin/cefazolin (4) Decubital ulcer: Current visit: Yes Status: Acute As above (5) Cellulitis of both lower extremities: Current visit: Yes Status: Acute Wound care sonsult. vancomycin/cefazolin (6) Metastatic malignant neoplasm to prostate: Current visit: No Status: None is bringing in patient's medications. I do not think he can take any oral medications safely tonight. (7) Dehydration: Current visit: Yes Status: Acute Provide IVF. Hold furosemide (8) Discharge planning issues: Current visit: Yes Status: Acute DNR, but not DNI, per my conversation with patient's (9) DVT prophylaxis: Current visit: Yes Status: Acute Heparin SQ History of Present Illness Chief Complaint: Confusion Narrative: Mr Adrian is a 78 year old male with PMHx of TBI, metastatic prostate cancer, hypertension, hyperlipidemia, memory loss, chronic pain on opioids, who was BIBA to [facility] ED this morning for confusion. He was somnolent and confused, but neurologic exam in ED was nonfocal. He was found to have cellulitis of his buttocks with decub ulcers and his mental status change was thought to be due to toxic metabolic encephalopathy from sepsis as well as mild hypercapnia. When I saw the patient, he was very lethargic, arousable, but unable to provide history. He cannot tell me why he is here, but does occasionally answer questions with yes or no. He specifically denies headache, neck pain, sore throat, chest pain, shortness of breath, nausea, abdominal pain. He said no to wearing a mask/CPAP at home. Patient cannot stay awake long enough to complete a sentence. I reached out to patient's : she states that the patient fell 1 week ago coming out of the shower and hit his head. Per her, he was groggy for a day or so after that. He did relatively well for the week afterwards, but she thought he was just slightly slow on the uptake. She noticed something was wrong last night. She woke up at 1 am to find him in a recliner with his leg twitching and she could not wake him up. She let him sleep. She was finally able to wake him up at 11 am. Per her, he was unable to process information, so EMS were called. She states the abrasions we see on his legs happened the day he fell. The lower legs have otherwise been red like this for a while. The buttocks wounds have been going on for 2 years - the patient wears depends to bed due to urinary incontinence. He does not snore, but makes noises when he sleeps. He has never had a workup for obstructive sleep apnea. Review of Systems Review of Systems 12 systems were reviewed with the patient as best they could be, considering his mental status. Pertinent positives and negatives are as per HPI. 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 Do you feel safe in your relationship?: Yes Additional Social history: Moved from [place] to [place] in 2017 to be cared for by ( x10 years previously) Meds Home Medications Medication Instructions Recorded Confirmed Type Lupron Depot (4 month) 30 mg IM .Q4 months 09/25/17 05/01/19 History ascorbic acid (vitamin C) [Vitamin 1,000 mg PO DAILY 09/25/17 05/01/19 History C] furosemide 20 mg PO DAILY tab-cap 09/25/17 05/01/19 History metoprolol succinate 100 mg PO DAILY tab-cap 09/25/17 05/01/19 History amlodipine 5 mg tablet 5 mg PO DAILY 12/10/18 05/01/19 History betamethasone dipropionate 0.05 % 1 applic TP BID PRN 12/10/18 05/01/19 History topical cream calcium carbonate-vitamin D3 500 ml PO DAILY ml 12/10/18 01/31/19 History mg calcium-400 unit/5 mL oral liquid denosumab 120 mg/1.7 mL (70 mg/mL) 120 mg SC Q4W 12/10/18 05/01/19 History subcutaneous solution enzalutamide 40 mg capsule 160 mg PO DAILY 12/10/18 05/01/19 History fluticasone propionate 50 1 spray BRIAN DAILY 12/10/18 05/01/19 History mcg/actuation nasal spray,suspension gabapentin 300 mg capsule 600 mg PO TID tab-cap 12/10/18 05/01/19 History lisinopril 5 mg tablet 10 mg PO DAILY #2 tab-cap 12/10/18 01/31/19 History multivitamin tablet 1 tab PO DAILY 12/10/18 05/01/19 History oxycodone 15 mg tablet 7.5 mg PO BID PRN tab 12/18/18 05/01/19 History fentanyl 50 mcg/hr transdermal 1 patch TD Q72H 01/31/19 05/01/19 History patch Allergies Allergy/AdvReac Type Severity Reaction Status Date / Time No Known Drug Allergies Allergy Unverified 05/01/19 12:42 Exam Narrative Exam Narrative: General: Very pale elderly male, lethargic, arousable to verbal stimuli, but does not stay awake long enough to complete a sentence, appears ill, diaphoretic, hot to touch Neurological: lethargic, arousable to verbal stimuli, A&Ox2 (hospital), no obvious focal deficits; he is having periodic twitching Psychiatric: unable to assess due to mental status Skin: bilateral lower extremities with wounds and cellulitis; clint cleft/B buttocks with Stage III decubitous ulcers, cellulitis HEENT: Evidence of an old healed scar on forehead, EOMI, dry MM, clear oropharynx, no submandibular or cervical lymphadenopathy, no goiter or JVD Cardiovascular: RRR, no m/r/g Lungs: Diminished breath sounds B Gastrointestinal: abdomen is soft, nontender, nondistsended Genitourinary: does not have a lomeli at the time of my exam. Extremities: BLE edema (+1), erythema BLE c/w cellulitis with scabbed wounds; 1+ pedal pulses B Results Imaging Additional studies: CT head; No acute intracranial abnormality is seen. CXR: No evidence of acute cardiopulmonary disease. Labs : 05/01/19 12:51 05/01/19 12:51 Laboratory Results - last 24 hr 05/01/19 05/01/19 05/01/19 12:51 12:51 12:51 WBC RBC Hgb Hct MCV MCH MCHC RDW Plt Count MPV Immature Gran % Neutrophils % Lymphocytes % Monocytes % Eosinophils % Basophils % Absolute Neutrophils Absolute Lymphocytes Absolute Monocytes Absolute Eosinophils Absolute Basophils PT INR APTT VBG pH VBG pCO2 VBG pO2 VBG HCO3 VBG Total CO2 VBG O2 Saturation VBG Base Excess Sodium 141 Potassium 5.2 H Chloride 104 Carbon Dioxide 31.8 Anion Gap 5.2 BUN 33 H D Creatinine 1.31 H Estimated GFR/1.73 m2 53.06 Glucose 146 H Lactate 1.8 H Calcium 9.0 Magnesium Total Bilirubin 0.8 AST 24 ALT 23 Alkaline Phosphatase 81 Ammonia < 10 L Troponin I < 0.05 NT-Pro-B Natriuret Pep 1606 H Total Protein 7.0 Albumin 3.1 L TSH 0.82 Urine Color Urine Clarity Urine pH Ur Specific [place] Urine Protein Urine Ketones Urine Blood Urine Nitrite Urine Bilirubin Urine Urobilinogen Ur Leukocyte Esterase Urine RBC Urine WBC Ur Epithelial Cells Urine Crystals Urine Bacteria Urine Casts Urine Mucus Ur Culture Indicated? Urine Glucose 05/01/19 05/01/19 05/01/19 12:51 12:51 12:51 WBC 15.04 H RBC 3.86 L Hgb 13.1 L Hct 39.6 L MCV 102.6 H MCH 33.9 H MCHC 33.1 RDW 14.1 Plt Count 260 MPV 9.3 Immature Gran % 0.3 Neutrophils % 91.4 Lymphocytes % 3.5 Monocytes % 4.5 Eosinophils % 0.2 Basophils % 0.1 Absolute Neutrophils 13.75 H Absolute Lymphocytes 0.53 L Absolute Monocytes 0.68 Absolute Eosinophils 0.03 Absolute Basophils 0.02 PT 10.1 INR 1.0 APTT 25.0 VBG pH 7.34 VBG pCO2 59 H VBG pO2 27 L VBG HCO3 32 H VBG Total CO2 29 VBG O2 Saturation 45 L VBG Base Excess 5.9 H Sodium Potassium Chloride Carbon Dioxide Anion Gap BUN Creatinine Estimated GFR/1.73 m2 Glucose Lactate Calcium Magnesium Total Bilirubin AST ALT Alkaline Phosphatase Ammonia Troponin I NT-Pro-B Natriuret Pep Total Protein Albumin TSH Urine Color Urine Clarity Urine pH Ur Specific [place] Urine Protein Urine Ketones Urine Blood Urine Nitrite Urine Bilirubin Urine Urobilinogen Ur Leukocyte Esterase Urine RBC Urine WBC Ur Epithelial Cells Urine Crystals Urine Bacteria Urine Casts Urine Mucus Ur Culture Indicated? Urine Glucose 05/01/19 05/01/19 12:51 14:55 WBC RBC Hgb Hct MCV MCH MCHC RDW Plt Count MPV Immature Gran % Neutrophils % Lymphocytes % Monocytes % Eosinophils % Basophils % Absolute Neutrophils Absolute Lymphocytes Absolute Monocytes Absolute Eosinophils Absolute Basophils PT INR APTT VBG pH VBG pCO2 VBG pO2 VBG HCO3 VBG Total CO2 VBG O2 Saturation VBG Base Excess Sodium Potassium Chloride Carbon Dioxide Anion Gap BUN Creatinine Estimated GFR/1.73 m2 Glucose Lactate Calcium Magnesium 2.1 Total Bilirubin AST ALT Alkaline Phosphatase Ammonia Troponin I NT-Pro-B Natriuret Pep Total Protein Albumin TSH Urine Color Yellow Urine Clarity Clear Urine pH 5.5 Ur Specific [place] 1.020 Urine Protein Trace H Urine Ketones Negative Urine Blood Trace-intact H Urine Nitrite Negative Urine Bilirubin Negative Urine Urobilinogen 0.2 Ur Leukocyte Esterase Negative Urine RBC 10-20 H Urine WBC 3-5 Ur Epithelial Cells Few Urine Crystals Negative Urine Bacteria Few Urine Casts 0-2 hyaline Urine Mucus Moderate Ur Culture Indicated? C&s done as ordered Urine Glucose Negative Last Vital Signs Temp 38.0 C H 05/01/19 16:53 Pulse 83 05/01/19 16:53 Resp 20 05/01/19 16:53 BP 129/58 L 05/01/19 16:53 Pulse Ox 97 05/01/19 16:53
[2019-05-01 20:10] LABS: BE 4.9 mmol/L (-3-3); HCO3 30 mmol/L (22-28); pCO2 49 mmHg (34-47); pO2 98 mmHg (83-108); sO2 97 % (94-98); tCO2 27 mmol/L (22-29)
[2019-05-01 20:12] LABS: FIO2L 2 L; Site Right Radial
[2019-05-01] MEDS: VANCOMYCIN 1,250 MG in Normal Saline 250 ML 166.667 MG IVPB (21:27)
[2019-05-02] VITALS (9 sets, daily range): BP systolic 123–168; BP diastolic 62–79; PULSE 60–82; RESP 14–20; TEMP 35.8–38.1; O2SAT 94–100
[2019-05-02] MEDS: Acetaminophen 325 MG TAB PO ×2 (01:34→15:28)
[2019-05-02] MEDS: SODIUM CHLORIDE 0.45% 1,000 ML 125 ML IV ×2 (04:46→12:42)
[2019-05-02 07:13] LABS: Abs Immature Grans 0.01 k/cumm (0.0-0.09); Absolute Basophil Count 0.01 k/cumm (0.0-0.2); Absolute Eosinophil Count 0.06 k/cumm (0.0-0.7); Absolute Lymphocyte Count 0.54 k/cumm (1.2-3.4); Absolute Monocyte Count 0.47 k/cumm (0.11-0.7); Basophils % 0.1; Eosinophils % 0.7; HCT 36.6 % (40.0-50.0); HGB 11.9 g/dL (13.5-17.5); Immature Grans % 0.1; Lymphocytes % 6.5; Mean Corp. HGB Concentration 32.5 g/dL (32.0-36.0); Mean Corpuscular Hemoglobin 33.5 pg (27.0-33.0); Mean Corpuscular Volume 103.1 fL (80-95); Mean Platelet Volume 9.4 fL (8.0-11.0); Monocytes % 5.7; Neutrophils % 86.9; Platelet Count 213 x1000/uL (130-400); RBC 3.55 m/cumm (4.50-6.00); RBC Distribution Width 14.2 % (11.8-14.1); White Blood Cell Count 8.29 k/cumm (4.4-10.8)
[2019-05-02 07:26] LABS: BUN 31 mg/dL (7-18); CREATININE 1.11 mg/dL (0.70-1.30); Calcium 8.4 mg/dL (8.5-10.1); Chloride 106 mmol/L (98-107); Glucose 160 mg/dL (70-100); Sodium 139 mmol/L (136-145)
[2019-05-02 08:12] LABS: C-Reactive Protein 22.97 mg/dL (0.0-0.3)
--- NOTE | 2019-05-02 08:13 | IN_ITS ---
Date of service: 05/02/19 Time of Service: 07:30 PT Notes Inpatient Physical Therapy Evaluation Date: 05/02/19 Referring Doctor: Dr. Loly Brown PT Orders: PT CONSULT: eval/treat Precautions: fall, standard Patient Profile/Admitting Diagnosis: Patient admitted 05/01/19 after his found him to be lethargic and confused. He was transported to the ER by ambulance, where he was diagnosed with sepsis syndrome. PT consult requested today for evaluation of mobility. PMHX: TBI, metastatic prostate cancer, hypertension, hyperlipidemia, memory loss, chronic pain on opioids Social History/Home Situation: Patient lives in a multilevel home with ramp to enter. He remains on the first floor of the home, stating he has not manage stairs in many years. He lives with his , who was present at time of evaluation. He is retired, and attends outpatient physical therapy for an independent exercise program 2 times per week. Equipment Owned/DME: Front wheeled walker Subjective: Patient states that he is feeling much clearer today. He states that he feels a little below his baseline although is ready to get up and try walking. He admits that he is bit nervous about getting out of bed and is anxio us to speak with the doctor about his current issues. Objective: General Observation: Resting in bed with IV in RUE, Bansal catheter in place, 2 L supplemental O2 via nasal cannula. Patient has multiple wounds throughout the lower extremities, in various stages of healing. He has significant edema in the LLE, with warmth noted bilaterally. Mental Status: A and O x3, although patient frequently repeats questions and intermittently requires cues from his during history taking Pain: patient reports chronic left shoulder pain Vital Signs: SaO2 98% at rest. With removal of supplemental oxygen, he rests at 92%. Nasal cannula was replaced with 2 LPM supplemental oxygen at end of session. ROM: Right Upper Extremity: WFL Left Upper Extremity: Passive left shoulder motion allows 130 degrees. Actively, patient is unable to initiate elevation or external rotation. Right Lower Extremity: Grossly WFL Left Lower Extremity: Grossly WFL Strength: Right Upper Extremity: 3/5 for all shoulder motions Left Upper Extremity: Patient lacks active left shoulder range of motion. He is able to demonstrate 3/5 strength at the elbow and wrist Right Lower Extremity: Functionally, patient is able to perform heel slides and SLR. Quad strength is 4/5. Hamstrings 4-/5. Ankle dorsiflexion 0/5 Left Lower Extremity: Functionally, patient is able to perform heel slides and SLR. Quad strength is 4/5. Hamstrings 4-/5. Ankle dorsiflexion 0/5 Sensation: Unable to identify light touch to the plantar or dorsal aspect of the left foot and ankle Bed Mobility/Transfers: Supine?sit: Mod a x1 with head of bed at 50 degrees sit?stand: Mod assist x2 Stand?sit: Min assist x2 Gait: Patient ambulates 5 feet with FW W and min assist x2. Balance: Static Sitting: Good Dynamic Sitting: fair Static Standing: Poor Dynamic Standing: poor Special Tests: Mobility Limitations Standardized Measure [facility] 6 clicks Basic Mobility Inpatient Short Form: Raw Score: 11 CMS Score: 73% deficit Informed Consent/Education: Patient instructed in purpose of PT consult and plan of care. Assessment: Patient is a 78 year old male referred to physical therapy services with the diagnosis of sepsis. Patient presents with clinical signs and symptoms consistent with diagnosis. He has baseline mobility issues, and demonstrates reduced mobility today as a result of his acute medical issues. He requires skilled PT Intervention to address these issues and allow for safe transition back home with assistance from his . Given his mobility today, he may require a brief rehab stay prior to returning home. He currently demonstrates the following impairment level findings: 1. Chronically painful left shoulder with reduced range of motion and strength 2. Decreased lower extremity strength bilaterally 3. Decreased activity tolerance 4. Decreased skin integrity with multiple lower extremity wounds in various stages of healing 5. Bilateral foot drop 6. Decreased standing balance Impairments are contributing to the following functional limitations: 1. Decreased independence of bed mobility 2. Decreased independence of short distance ambulation 3. High fall risk 4. Decreased activity tolerance Patient is assessed as a High 10422 complexity based on the following: History: Acutely ill 78-year-old male with history of multiple chronic health conditions including metastatic prostate cancer. His extensive medical history can be found noted above. In addition to this, he has baseline mobility limitations and history of falls. Examination: Functional limitations as noted above Presentation: unstable due to current diagnosis of cellulitis and septic syndrome Decision Making: High complexity Goals: Goals X1 week 1. Supine-Sit : supervision 2. Sit-Supine : supervision 3. Sit-Stand : supervision 4. Stand-Sit : supervision 5. Bed-Chair: supervision with FWW 6. Chair-Bed : supervision with FWW 7. Gait : supervision with FWW x 30' Plan of Care/Treatment Plan: 1-2x/day, 7 days/week x 1 week. Plan of care has been reviewed with the GLOBAL CLINICAL LEADER providing the service under Physical Therapy direction. Initiate Physical Therapy intervention for strengthening, bed mobility, transfers, gait, stairs, balance training, use of assistive device. DISCHARGE RECOMMENDATIONS: home with assistance from vs. brief SNF stay TREATMENT CODE/TIME: 30 minutes (7:35-8:05) [id number] Ella Gabriel, PT, DPT [facility]
[2019-05-02 08:29] LABS: Procalcitonin 4.8 ng/mL
[2019-05-02] MEDS: Heparin 5,000 UNITS/ML VIAL 5000 UNITS SC ×3 (09:28→23:17)
--- NOTE | 2019-05-02 11:03 | CHAPLAIN ---
Jesus was resting in his chair when I visited. He was pleasant and visiting with his . When I introduced myself, he told me that he is well churched. His explained that they belong to a alevism in [place], and their pastors knows that Jesus is here. I offered support and will check in tomorrow.
[2019-05-02] MEDS: fentaNYL 75 MCG PATCH TD (11:07)
[2019-05-02] MEDS: Multivitamin TAB 1 TAB PO (11:08)
[2019-05-02] MEDS: amLODIPine 5 MG TAB PO (11:08)
[2019-05-02] MEDS: Metoprolol CR 100 MG TABCR PO (11:08)
[2019-05-02] MEDS: Ascorbic Acid 500 MG TAB 1000 MG PO (11:08)
[2019-05-02] MEDS: Fluticasone NASAL SPRAY 16 GM BTL NS (11:48)
--- NOTE | 2019-05-02 15:27 | WOUNDCARE ---
Wound Care Report Pt is a 78 year old male consulted for pressure injury on left buttocks and partial thickness skin loss r/t fall on bilat LE?s. Chart reviewed, including H&P, recent labs, vital signs, and other providers? reports. Medical Hx and labs pertinent to wound healing: PMHx of TBI, metastatic prostate cancer, hypertension, hyperlipidemia, memory loss, chronic pain on opioids. Wound Hx if applicable Pt reports having stage 3 pressure injury on buttocks ?for about a year?. Reports etiology of wounds on LE?s r/t a fall ?about 1 week ago.? Wound Assessment Findings Stage 3 Pressure injury on left Buttocks Measurements 2.9x2.0x0.2 partial thickness skin loss noted on on 90% of wound. full thickness loss noted on right wound edge, SQ tissue involved. Some black discoloration noted on upper right corner of wound, looks like it is possibly old dried blood or necrotic tissue, unable to say definitively. 90% of wound bed is red, non granular. 10% is white adherent slough Right buttocks has scattered open areas r/t pressure and probable adverse microclimate. Wound Edges Definition defined edges Surrounding tissue [place]/purple, pale surrounding tissue, skin is macerated. Blanchable surrounding skin. Exudate Scant serous drainage noted. Odor none Partial Thickness wounds on bilat LE?s 4 of them (all same etiology and characteristics) Wound Assessment Findings Oval, long, irregular borders, partial thickness skin loss. Wound bed red/pink/yellow/pale Wound Edges Definition defined and attached Surrounding tissue Red, edematous Exudate minimal serosanguinous, Odor none Left anterior mid john 2.5 x 1.4 x 0.2 Left upper john 1.6 x 2.3 x 0.1 Left posterior calf 2.4 x 1.4 x 0.1 Right lower john 3 x 1.9 x 0.1 Indicators of infection present? Pt on IV antibiotic therapy @ this time. Patients Mobility status transfer with assist, needs repositioning Nutritional Status- nutrition consult recommended Continence Bansal in place, continent of bowels Circulatory status palpable pedal pulses, BOBBY deferred @ this time, Pt unable to stay still r/t leg twitching. Will consider obtaining if compression is warranted at a later date. Pain Reports minimal pain to all wounds. Medications altering healing Chemotherapeutic agents, on oral form @ this time. Interventions for pressure redistribution Repositioning schedule for bed and chair Q2H Modifications to care document changes to plan of care based upon assessment findings at follow-up visit. Patient/family/staff education- educated pt on importance of keeping pressure off of left buttocks wound. Physician/nurse practitioner notification Dr. wellington notified of assessment finding and recommendations. Recommendations: Left/right buttocks- Cleanse area with wound cleanser, pat dry. Apply Anasept gel to open areas, cover with Sacral Mepilex. Change daily and PRN. Bilateral Shins- Cleanse open areas with wound cleanser, pat dry. Apply Anasept gel to open areas, cover with Mepilex. Change daily and PRN. Thank you for the consult.
--- NOTE | 2019-05-02 15:33 | PDOC.CMIN ---
- If Service Date Differs Date of service: 05/02/19 Time of Service: 15:33 Care Management Initial Assess REASON FOR HOSPITALIZATION:: Altered mental status, cellulitis PAST MEDICAL HISTORY/PAST SURGICAL HISTORY:: Prostate cancer, HTN, hyperlipidemia, acute renal failure and chronic kidney disease stage 3, peptic ulcer, neuropathy, peripheal edema, memory loss, TBI. PREVIOUS FUNCTIONAL STATUS/SOCIAL/FAMILY SUPPORTS:: Lester lives with his spouse in [place], [place] in their own home. They do have a boarder who helps with meals and other tasks around the home. 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 He uses a walker to ambulate his mobility is very limited due to his neuropathy. He needs assistance with care which his spouse provides. CURRENT FUNCTIONAL STATUS:: Lester is alert and engaged during assessment. He is being treated for cellulitis his spouse Lotus is present during assessment. Lester is receiving IV abx and will likely be here for the next few days. He does go out to PT three times a week however with the infection and skin breakdown on his buttocks he would benefit from home health services. Family would like [facility] as an option for home services CM will contact and see if they offer services in this area. ADVANCE DIRECTIVES:: None on file, patient may benefit from palliative consult CM to follow up with provider. Has patient been provided with information about the portal?: Yes Did the patient sign up for the portal?: No CODE STATUS:: DNR INSURANCE COVERAGE / FINANCIAL ISSUES:: Medicare and AARP CURRENT HOME/COMMUNITY SERVICES/EQUIPMENT:: FWW, 4WW, transport chair, shower bench, and grab bars. PRIMARY CARE PHYSICIAN:: POTENTIAL DISCHARGE NEEDS:: Follow up appoitnment with primary care scheduled prior to discharge. PATIENT/FAMILY EDUCATION NEEDS:: Discharge education, limitations and follow up plan of care which should include his spouse. ANTICIPATED BARRIERS TO DISCHARGE:: None TRANSPORTATION:: Via private car with spouse at time of discharge. PLAN:: Lester will be discharged home when medically ready anticpate with additional support services through home health vs [facility]. Lester does have a PT consult to eval and continue to treat. Wound consult in place. CM to continue to provide support discharge planning and disposition.
--- NOTE | 2019-05-02 15:40 | INITIAL_ITS ---
- If Service Date Differs Date of service: 05/02/19 Time of Service: 15:33 Care Management Initial Assess REASON FOR HOSPITALIZATION:: Altered mental status, cellulitis PAST MEDICAL HISTORY/PAST SURGICAL HISTORY:: Prostate cancer, HTN, hyperlipidemia, acute renal failure and chronic kidney disease stage 3, peptic ulcer, neuropathy, peripheal edema, memory loss, TBI. PREVIOUS FUNCTIONAL STATUS/SOCIAL/FAMILY SUPPORTS:: Lester lives with his spouse in [place], [place] in their own home. They do have a boarder who helps with meals and other tasks around the home. 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 He uses a walker to ambulate his mobility is very limited due to his neuropathy. He needs assistance with care which his spouse provides. CURRENT FUNCTIONAL STATUS:: Lester is alert and engaged during assessment. He is being treated for cellulitis his spouse Lotus is present during assessment. Lester is receiving IV abx and will likely be here for the next few days. He does go out to PT three times a week however with the infection and skin breakdown on his buttocks he would benefit from home health services. Family would like [facility] as an option for home services CM will contact and see if they offer services in this area. ADVANCE DIRECTIVES:: None on file, patient may benefit from palliative consult CM to follow up with provider. Has patient been provided with information about the portal?: Yes Did the patient sign up for the portal?: No CODE STATUS:: DNR INSURANCE COVERAGE / FINANCIAL ISSUES:: Medicare and AARP CURRENT HOME/COMMUNITY SERVICES/EQUIPMENT:: FWW, 4WW, transport chair, shower bench, and grab bars. PRIMARY CARE PHYSICIAN:: POTENTIAL DISCHARGE NEEDS:: Follow up appoitnment with primary care scheduled prior to discharge. PATIENT/FAMILY EDUCATION NEEDS:: Discharge education, limitations and follow up plan of care which should include his spouse. ANTICIPATED BARRIERS TO DISCHARGE:: None TRANSPORTATION:: Via private car with spouse at time of discharge. PLAN:: Lester will be discharged home when medically ready anticpate with additional support services through home health vs [facility]. Lester does have a PT consult to eval and continue to treat. Wound consult in place. CM to continue to provide support discharge planning and disposition.
--- NOTE | 2019-05-02 16:28 | W.PM.PROGNOT ---
Date of Service Date of service: 05/02/19 Time of Service: 16:28 Assessment and Plan (1) Sepsis: Current visit: No Status: Acute Due to cellulitis of BLE's and buttocks/decubitous ulcers. Already significantly improved. Will continue to trend CRP and procalcitonin. Continue antibiotics. Blood cultures are negative - continue to monitor fever curve. (2) Toxic metabolic encephalopathy: Current visit: No Status: Resolved No evidence of significant CO2 retention on ABG yesterday. Resolved with treatment of infection and cessation of gabapentin. Ok to reintroduce gabapentin at a lower dose. 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 (3) Cellulitis of multiple sites of buttock: Current visit: No Status: Acute Appreciate wound care recs. Continue lomeli catheter. Continue vancomycin/cefazolin (day 2) (4) Decubital ulcer: Current visit: No Status: Acute As above (5) Cellulitis of both lower extremities: Current visit: No Status: Acute Improving. Continue wound care, vancomycin/cefazolin D2 (6) Metastatic malignant neoplasm to prostate: Current visit: No Status: None Meds resumed (7) Dehydration: Current visit: No Status: Acute Decrease IVF (8) Discharge planning issues: Current visit: No Status: Acute DNR, but not DNI, per my conversation with patient's (9) DVT prophylaxis: Current visit: No Status: Acute Heparin SQ Subjective Interval history since last seen: Doing significantly better today. Completely neurologically at his baseline, awake, A&Ox3. States he saw a circular rash on his LUE for about a month and is worried about Lyme disease. Report LLE muscle spasms and neuropathic pain. Denies dizziness, chest pain, shortness of breath, nausea, vomiting. Exam Narrative Exam Narrative: General: Elderly male, very alert and interactive, A&Ox3, appropriate speech pattern/content HEENT: EOMI, MMM Cardiovascular: RRR, no m/r/g Lungs: quiet crackles at B bases, L>R Gastrointestinal: abdomen is soft, nontender, nondistsended Extremities: BLE edema (+1), erythema BLE c/w cellulitis, which is looking somewhat better, wounds are dressed - c/d/i Objective Objective Clinical Data: Abnormal lab results 05/01/19 05/02/19 05/02/19 Range/Units 19:12 06:25 06:25 RBC 3.55 L (4.50-6.00) m/cumm Hgb 11.9 L (13.5-17.5) g/dL Hct 36.6 L (40.0-50.0) % MCV 103.1 H (80-95) fL MCH 33.5 H (27.0-33.0) pg RDW 14.2 H (11.8-14.1) % Absolute Neutrophils 7.20 H (1.2-6.7) k/cumm Absolute Lymphocytes 0.54 L (1.2-3.4) k/cumm pCO2 49 H (34-47) mmHg ABG HCO3 30 H (22-28) mmol/L ABG Base Excess 4.9 H (-3-3) mmol/L BUN 31 H (7-18) mg/dL Glucose 160 H (70-100) mg/dL Calcium 8.4 L (8.5-10.1) mg/dL C-Reactive Protein (0.0-0.3) mg/dL 05/02/19 Range/Units 06:25 RBC (4.50-6.00) m/cumm Hgb (13.5-17.5) g/dL Hct (40.0-50.0) % MCV (80-95) fL MCH (27.0-33.0) pg RDW (11.8-14.1) % Absolute Neutrophils (1.2-6.7) k/cumm Absolute Lymphocytes (1.2-3.4) k/cumm pCO2 (34-47) mmHg ABG HCO3 (22-28) mmol/L ABG Base Excess (-3-3) mmol/L BUN (7-18) mg/dL Glucose (70-100) mg/dL Calcium (8.5-10.1) mg/dL C-Reactive Protein 22.97 H (0.0-0.3) mg/dL Vital Signs Temperature 38.1 C H 05/02/19 15:31 Temperature Source Tympanic 05/02/19 15:31 Pulse 70 05/02/19 15:31 Pulse Rhythm Regular 05/02/19 09:45 Pulse 77 05/01/19 16:10 Respiratory Rate 18 05/02/19 15:31 Respiratory Effort Non-Labored 05/02/19 09:45 Respiratory Depth Normal 05/02/19 09:45 Respiratory Pattern Normal 05/02/19 09:45 Blood Pressure 133/66 05/02/19 15:31 Blood Pressure Mean 78 05/01/19 16:01 Blood Pressure Position Supine 05/01/19 12:33 Pulse Oximetry 95 05/02/19 15:31 Oxygen Delivery Method Room Air 05/02/19 15:31 Oxygen Flow Rate 0 05/02/19 15:31 Pain Level 3 05/02/19 15:28 Comment 05/02/19 01:29 Intake & Output 05/01/19 05/02/19 05/02/19 23:59 11:59 23:59 Intake Total 850 / 850 1530 / 2761.667 1231.667 / 2761.667 Output Total 1090 / 1090 800 / 800 Balance -240 / -240 730 / 2934.274 5716.667 / 1961.667 Weight 94.347 kg 99.4 kg Intake: IV 850 / 850 1050 / 2041.667 991.667 / 2041.667 Oral 480 / 720 240 / 720 Output: Urine 1050 / 1050 800 / 800 Post Void Residual 40 / 40 Other: Urine Color Light Shira Light Shira Urine Appearance Clear Clear Urine Odor Normal Comment Strong odor. Pt has lomeli in place @ this time Voiding Methods Diaper Incontinent Laboratory Results WBC 8.29 k/cumm (4.4-10.8) D 05/02/19 06:25 RBC 3.55 m/cumm (4.50-6.00) L 05/02/19 06:25 Hgb 11.9 g/dL (13.5-17.5) L 05/02/19 06:25 Hct 36.6 % (40.0-50.0) L 05/02/19 06:25 MCV 103.1 fL (80-95) H 05/02/19 06:25 MCH 33.5 pg (27.0-33.0) H 05/02/19 06:25 MCHC 32.5 g/dL (32.0-36.0) 05/02/19 06:25 RDW 14.2 % (11.8-14.1) H 05/02/19 06:25 Plt Count 213 x1000/uL (130-400) 05/02/19 06:25 MPV 9.4 fL (8.0-11.0) 05/02/19 06:25 Immature Gran % 0.1 05/02/19 06:25 Neutrophils % 86.9 05/02/19 06:25 Lymphocytes % 6.5 05/02/19 06:25 Monocytes % 5.7 05/02/19 06:25 Eosinophils % 0.7 05/02/19 06:25 Basophils % 0.1 05/02/19 06:25 Absolute Neutrophils 7.20 k/cumm (1.2-6.7) H 05/02/19 06:25 Absolute Lymphocytes 0.54 k/cumm (1.2-3.4) L 05/02/19 06:25 Absolute Monocytes 0.47 k/cumm (0.11-0.7) 05/02/19 06:25 Absolute Eosinophils 0.06 k/cumm (0.0-0.7) 05/02/19 06:25 Absolute Basophils 0.01 k/cumm (0.0-0.2) 05/02/19 06:25 PT 10.1 sec (9.3-11.0) 05/01/19 12:51 INR 1.0 (0.9-1.1) 05/01/19 12:51 APTT 25.0 sec (21.0-31.4) 05/01/19 12:51 Sample Site Right radial 05/01/19 19:12 pCO2 49 mmHg (34-47) H 05/01/19 19:12 pO2 98 mmHg (83-108) 05/01/19 19:12 O2 Saturation 97 % (94-98) 05/01/19 19:12 ABG pH 7.40 (7.35-7.45) 05/01/19 19:12 ABG HCO3 30 mmol/L (22-28) H 05/01/19 19:12 ABG Total CO2 27 mmol/L (22-29) 05/01/19 19:12 ABG Base Excess 4.9 mmol/L (-3-3) H 05/01/19 19:12 VBG pH 7.34 (7.32-7.43) 05/01/19 12:51 VBG pCO2 59 mm/Hg (34-47) H 05/01/19 12:51 VBG pO2 27 mm/Hg (28-44) L 05/01/19 12:51 VBG HCO3 32 mmol/L (22-28) H 05/01/19 12:51 VBG Total CO2 29 mmol/L (22-29) 05/01/19 12:51 VBG O2 Saturation 45 % (70-80) L 05/01/19 12:51 VBG Base Excess 5.9 mmol/L (-3-3) H 05/01/19 12:51 Oxygen Liter Flow 2 L 05/01/19 19:12 Sodium 139 mmol/L (136-145) 05/02/19 06:25 Potassium 4.0 mmol/L (3.5-5.1) D 05/02/19 06:25 Chloride 106 mmol/L (98-107) 05/02/19 06:25 Carbon Dioxide 26.0 mmol/L (21.0-32.0) 05/02/19 06:25 Anion Gap 7.0 mmol/L (3-11) 05/02/19 06:25 BUN 31 mg/dL (7-18) H 05/02/19 06:25 Creatinine 1.11 mg/dL (0.70-1.30) 05/02/19 06:25 Estimated GFR/1.73 m2 >= 60.00 (mL/min/1.73m2) 05/02/19 06:25 Glucose 160 mg/dL (70-100) H 05/02/19 06:25 Lactate 1.0 mmol/l (0.6-1.4) 05/01/19 20:17 Calcium 8.4 mg/dL (8.5-10.1) L 05/02/19 06:25 Magnesium 2.0 mg/dL (1.8-2.4) 05/02/19 06:25 Total Bilirubin 0.8 mg/dL (0.2-1.0) 05/01/19 12:51 AST 24 U/L (15-37) 05/01/19 12:51 ALT 23 U/L (12-78) 05/01/19 12:51 Alkaline Phosphatase 81 U/L (46-116) 05/01/19 12:51 Ammonia < 10 umol/L (11-32) L 05/01/19 12:51 Troponin I < 0.05 ng/mL (0.00-0.06) 05/01/19 12:51 C-Reactive Protein 22.97 mg/dL (0.0-0.3) H 05/02/19 06:25 NT-Pro-B Natriuret Pep 1606 pg/mL (-299) H 05/01/19 12:51 Total Protein 7.0 g/dL (6.4-8.2) 05/01/19 12:51 Albumin 3.1 g/dL (3.4-5.0) L 05/01/19 12:51 Procalcitonin 4.8 ng/mL 05/02/19 06:25 TSH 0.82 uIU/mL (0.358-3.74) 05/01/19 12:51 Urine Color Yellow (Yellow) 05/01/19 14:55 Urine Clarity Clear (Clear) 05/01/19 14:55 Urine pH 5.5 (5-8) 05/01/19 14:55 Ur Specific [place] 1.020 (1.005-1.025) 05/01/19 14:55 Urine Protein Trace mg/dL (Negative) H 05/01/19 14:55 Urine Ketones Negative mg/dL (Negative) 05/01/19 14:55 Urine Blood Trace-intact (Negative) H 05/01/19 14:55 Urine Nitrite Negative (Negative) 05/01/19 14:55 Urine Bilirubin Negative (Negative) 05/01/19 14:55 Urine Urobilinogen 0.2 EU/dL (Up TO 0.2) 05/01/19 14:55 Ur Leukocyte Esterase Negative (Negative) 05/01/19 14:55 Urine RBC 10-20 (0-2) H 05/01/19 14:55 Urine WBC 3-5 HPF (0-5) 05/01/19 14:55 Ur Epithelial Cells Few HPF (Negative) 05/01/19 14:55 Urine Crystals Negative HPF (Negative) 05/01/19 14:55 Urine Bacteria Few HPF (Negative) 05/01/19 14:55 Urine Casts 0-2 hyaline LPF (Negative) 05/01/19 14:55 Urine Mucus Moderate (Negative) 05/01/19 14:55 Ur Culture Indicated? C&s done as ordered 05/01/19 14:55 Urine Glucose Negative mg/dL (Negative) 05/01/19 14:55
[2019-05-02] MEDS: Gabapentin 300 MG CAP PO (19:30)
[2019-05-02] MEDS: Normal Saline Flush 10 ML SYR (19:45)
[2019-05-02] MEDS: SODIUM CHLORIDE 0.45% 1,000 ML 75 ML IV (23:19)
[2019-05-03 03:53] VITALS: BP 137/59; PULSE 62; RESP 16; TEMP 37; O2SAT 95
[2019-05-03 07:29] LABS: Abs Immature Grans 0.02 k/cumm (0.0-0.09); Absolute Basophil Count 0.01 k/cumm (0.0-0.2); Absolute Eosinophil Count 0.21 k/cumm (0.0-0.7); Absolute Lymphocyte Count 0.88 k/cumm (1.2-3.4); Absolute Neutrophil Count 5.72 k/cumm (1.2-6.7); Basophils % 0.1; Eosinophils % 2.9; HCT 36.5 % (40.0-50.0); HGB 12.1 g/dL (13.5-17.5); Immature Grans % 0.3; Mean Corp. HGB Concentration 33.2 g/dL (32.0-36.0); Mean Corpuscular Volume 102.5 fL (80-95); Mean Platelet Volume 9.3 fL (8.0-11.0); Monocytes % 6.8; Neutrophils % 77.9; Platelet Count 253 x1000/uL (130-400); RBC 3.56 m/cumm (4.50-6.00); RBC Distribution Width 14.1 % (11.8-14.1); White Blood Cell Count 7.34 k/cumm (4.4-10.8)
[2019-05-03 07:47] LABS: Anion Gap 8.6 mmol/L (3-11); BUN 21 mg/dL (7-18); C-Reactive Protein 15.85 mg/dL (0.0-0.3); CO2 25.4 mmol/L (21.0-32.0); CREATININE 0.92 mg/dL (0.70-1.30); Calcium 8.3 mg/dL (8.5-10.1); Chloride 105 mmol/L (98-107); Glucose 121 mg/dL (70-100); Magnesium 2.1 mg/dL (1.8-2.4); Potassium 3.9 mmol/L (3.5-5.1); Sodium 139 mmol/L (136-145)
[2019-05-03 07:49] VITALS: BP 160/75; PULSE 69; RESP 18; TEMP 36.9; O2SAT 96
[2019-05-03 08:09] LABS: Procalcitonin 3.1 ng/mL
[2019-05-03 08:14] LABS: Folate 18.2 ng/mL (8.6-20.0); Vitamin B12 469 pg/mL (193-986)
[2019-05-03] MEDS: Metoprolol CR 100 MG TABCR PO (09:38)
[2019-05-03] MEDS: Ascorbic Acid 500 MG TAB 1000 MG PO (09:38)
[2019-05-03] MEDS: amLODIPine 5 MG TAB PO (09:39)
[2019-05-03] MEDS: Gabapentin 300 MG CAP PO ×3 (09:39→19:48)
[2019-05-03] MEDS: Multivitamin TAB 1 TAB PO (09:39)
[2019-05-03] MEDS: Heparin 5,000 UNITS/ML VIAL 5000 UNITS SC ×2 (09:40→16:35)
--- NOTE | 2019-05-03 10:57 | W.PM.PROGNOT ---
Date of Service Date of service: 05/03/19 Time of Service: 10:57 Assessment and Plan (1) Sepsis: Current visit: No Status: Acute Due to cellulitis of BLE's and buttocks/decubitous ulcers. Much better. Continue to trend CRP. D/c Vancomycin. Continue ancef and monitor for recurrence of fever/spike in CRP. Blood cultures are negative. (2) Toxic metabolic encephalopathy: Current visit: No Status: Resolved No evidence of significant CO2 retention on ABG. Resolved with treatment of infection and cessation of gabapentin. Tolerating reduced dose of gabapentin. Also, fentanyl patch while febrile could have resulted in supratherapeutic levels of fentanyl, resulting in worsening mentation. No h/o seizures. Continue to monitor mental status. (3) Cellulitis of multiple sites of buttock: Current visit: No Status: Acute Appreciate wound care recs. Continue lomeli catheter. Will need to be discharged with a lomeli catheter if that wound is to have a chance of healing. Continue cefazolin (day 3). D/c vancomycin and monitor. (4) Decubital ulcer: Current visit: No Status: Acute As above (5) Cellulitis of both lower extremities: Current visit: No Status: Acute Improving. Continue wound care, cefazolin D3; vancomycin d/c'ed. (6) Metastatic malignant neoplasm to prostate: Current visit: No Status: None Meds resumed (7) Dehydration: Current visit: No Status: Resolved Cr normalized. D/c IVF. Reintroduce lasix. (8) Discharge planning issues: Current visit: No Status: Acute DNR, but not DNI, per my conversation with patient's . On discharge from the hospital will need home health nursing for wound care, PT/OT. I watched the patient ambulate with a walker in the hallway with contact guard. Possible discharge home in 48 hours, depending on how well the patient tolerates cessation of vancomycin and clinical progress of cellulitis. (9) DVT prophylaxis: Current visit: No Status: Acute Heparin SQ Subjective Interval history since last seen: Mr Adrian is doing much better, he states. His legs are significantly better, per his . He denies dizziness, chest pain, shortness of breath, nausea, vomiting. He required assistance to get to the bathroom; working with PT now. Exam Narrative Exam Narrative: General: Elderly male, very alert and interactive, A&Ox3, appears intact neurologically HEENT: EOMI, MMM Cardiovascular: RRR, no m/r/g Lungs: L basilar crackles Gastrointestinal: abdomen is soft, nontender, nondistsended Extremities: BLE edema (+1), improved, with wrinkles, erythema BLE c/w cellulitis, which is looking lots better, wounds are dressed - dressing partially saturated Objective Objective Clinical Data: Abnormal lab results 05/03/19 05/03/19 Range/Units 07:15 07:15 RBC 3.56 L (4.50-6.00) m/cumm Hgb 12.1 L (13.5-17.5) g/dL Hct 36.5 L (40.0-50.0) % MCV 102.5 H (80-95) fL MCH 34.0 H (27.0-33.0) pg Absolute Lymphocytes 0.88 L (1.2-3.4) k/cumm BUN 21 H D (7-18) mg/dL Glucose 121 H (70-100) mg/dL Calcium 8.3 L (8.5-10.1) mg/dL C-Reactive Protein 15.85 H (0.0-0.3) mg/dL Vital Signs Temperature 36.9 C 05/03/19 07:49 Temperature Source Tympanic 05/03/19 07:49 Pulse 69 05/03/19 07:49 Pulse Rhythm Irregular 05/03/19 08:03 Pulse 77 05/01/19 16:10 Respiratory Rate 18 05/03/19 07:49 Respiratory Effort Non-Labored 05/03/19 08:03 Respiratory Depth Normal 05/03/19 08:03 Respiratory Pattern Normal 05/03/19 08:03 Blood Pressure 160/75 H 05/03/19 07:49 Blood Pressure Mean 78 05/01/19 16:01 Blood Pressure Position Supine 05/01/19 12:33 Pulse Oximetry 96 05/03/19 07:49 Oxygen Delivery Method Room Air 05/03/19 07:49 Oxygen Flow Rate 0 05/03/19 07:49 Pain Level 0 05/03/19 03:53 Comment 05/02/19 18:08 Intake & Output 05/02/19 05/02/19 05/03/19 11:59 23:59 11:59 Intake Total 1530 / 4052.084 2522.084 / 4052.084 440 / 440 Output Total 800 / 1300 500 / 1300 650 / 650 Balance 730 / 2752.084 2022.084 / 2752.084 -210 / -210 Weight 99.4 kg 98.6 kg Intake: IV 1050 / 3332.084 2282.084 / 3332.084 Oral 480 / 720 240 / 720 440 / 440 Output: Urine 800 / 1300 500 / 1300 650 / 650 Other: Urine Color Light Shira Straw Yellow Urine Appearance Clear Clear Clear Comment Pt has lomeli in place @ this time Stool Size Moderate Moderate Stool Characteristics Formed Soft Formed Laboratory Results WBC 7.34 k/cumm (4.4-10.8) 05/03/19 07:15 RBC 3.56 m/cumm (4.50-6.00) L 05/03/19 07:15 Hgb 12.1 g/dL (13.5-17.5) L 05/03/19 07:15 Hct 36.5 % (40.0-50.0) L 05/03/19 07:15 MCV 102.5 fL (80-95) H 05/03/19 07:15 MCH 34.0 pg (27.0-33.0) H 05/03/19 07:15 MCHC 33.2 g/dL (32.0-36.0) 05/03/19 07:15 RDW 14.1 % (11.8-14.1) 05/03/19 07:15 Plt Count 253 x1000/uL (130-400) 05/03/19 07:15 MPV 9.3 fL (8.0-11.0) 05/03/19 07:15 Immature Gran % 0.3 05/03/19 07:15 Neutrophils % 77.9 05/03/19 07:15 Lymphocytes % 12.0 05/03/19 07:15 Monocytes % 6.8 05/03/19 07:15 Eosinophils % 2.9 05/03/19 07:15 Basophils % 0.1 05/03/19 07:15 Absolute Neutrophils 5.72 k/cumm (1.2-6.7) 05/03/19 07:15 Absolute Lymphocytes 0.88 k/cumm (1.2-3.4) L 05/03/19 07:15 Absolute Monocytes 0.50 k/cumm (0.11-0.7) 05/03/19 07:15 Absolute Eosinophils 0.21 k/cumm (0.0-0.7) 05/03/19 07:15 Absolute Basophils 0.01 k/cumm (0.0-0.2) 05/03/19 07:15 PT 10.1 sec (9.3-11.0) 05/01/19 12:51 INR 1.0 (0.9-1.1) 05/01/19 12:51 APTT 25.0 sec (21.0-31.4) 05/01/19 12:51 Sample Site Right radial 05/01/19 19:12 pCO2 49 mmHg (34-47) H 05/01/19 19:12 pO2 98 mmHg (83-108) 05/01/19 19:12 O2 Saturation 97 % (94-98) 05/01/19 19:12 ABG pH 7.40 (7.35-7.45) 05/01/19 19:12 ABG HCO3 30 mmol/L (22-28) H 05/01/19 19:12 ABG Total CO2 27 mmol/L (22-29) 05/01/19 19:12 ABG Base Excess 4.9 mmol/L (-3-3) H 05/01/19 19:12 VBG pH 7.34 (7.32-7.43) 05/01/19 12:51 VBG pCO2 59 mm/Hg (34-47) H 05/01/19 12:51 VBG pO2 27 mm/Hg (28-44) L 05/01/19 12:51 VBG HCO3 32 mmol/L (22-28) H 05/01/19 12:51 VBG Total CO2 29 mmol/L (22-29) 05/01/19 12:51 VBG O2 Saturation 45 % (70-80) L 05/01/19 12:51 VBG Base Excess 5.9 mmol/L (-3-3) H 05/01/19 12:51 Oxygen Liter Flow 2 L 05/01/19 19:12 Sodium 139 mmol/L (136-145) 05/03/19 07:15 Potassium 3.9 mmol/L (3.5-5.1) 05/03/19 07:15 Chloride 105 mmol/L (98-107) 05/03/19 07:15 Carbon Dioxide 25.4 mmol/L (21.0-32.0) 05/03/19 07:15 Anion Gap 8.6 mmol/L (3-11) 05/03/19 07:15 BUN 21 mg/dL (7-18) H D 05/03/19 07:15 Creatinine 0.92 mg/dL (0.70-1.30) 05/03/19 07:15 Estimated GFR/1.73 m2 >= 60.00 (mL/min/1.73m2) 05/03/19 07:15 Glucose 121 mg/dL (70-100) H 05/03/19 07:15 Lactate 1.0 mmol/l (0.6-1.4) 05/01/19 20:17 Calcium 8.3 mg/dL (8.5-10.1) L 05/03/19 07:15 Magnesium 2.1 mg/dL (1.8-2.4) 05/03/19 07:15 Total Bilirubin 0.8 mg/dL (0.2-1.0) 05/01/19 12:51 AST 24 U/L (15-37) 05/01/19 12:51 ALT 23 U/L (12-78) 05/01/19 12:51 Alkaline Phosphatase 81 U/L (46-116) 05/01/19 12:51 Ammonia < 10 umol/L (11-32) L 05/01/19 12:51 Troponin I < 0.05 ng/mL (0.00-0.06) 05/01/19 12:51 C-Reactive Protein 15.85 mg/dL (0.0-0.3) H 05/03/19 07:15 NT-Pro-B Natriuret Pep 1606 pg/mL (-299) H 05/01/19 12:51 Total Protein 7.0 g/dL (6.4-8.2) 05/01/19 12:51 Albumin 3.1 g/dL (3.4-5.0) L 05/01/19 12:51 Vitamin B12 469 pg/mL (193-986) 05/03/19 07:15 Folate 18.2 ng/mL (8.6-20.0) 05/03/19 07:15 Procalcitonin 3.1 ng/mL 05/03/19 07:15 TSH 0.82 uIU/mL (0.358-3.74) 05/01/19 12:51 Urine Color Yellow (Yellow) 05/01/19 14:55 Urine Clarity Clear (Clear) 05/01/19 14:55 Urine pH 5.5 (5-8) 05/01/19 14:55 Ur Specific [place] 1.020 (1.005-1.025) 05/01/19 14:55 Urine Protein Trace mg/dL (Negative) H 05/01/19 14:55 Urine Ketones Negative mg/dL (Negative) 05/01/19 14:55 Urine Blood Trace-intact (Negative) H 05/01/19 14:55 Urine Nitrite Negative (Negative) 05/01/19 14:55 Urine Bilirubin Negative (Negative) 05/01/19 14:55 Urine Urobilinogen 0.2 EU/dL (Up TO 0.2) 05/01/19 14:55 Ur Leukocyte Esterase Negative (Negative) 05/01/19 14:55 Urine RBC 10-20 (0-2) H 05/01/19 14:55 Urine WBC 3-5 HPF (0-5) 05/01/19 14:55 Ur Epithelial Cells Few HPF (Negative) 05/01/19 14:55 Urine Crystals Negative HPF (Negative) 05/01/19 14:55 Urine Bacteria Few HPF (Negative) 05/01/19 14:55 Urine Casts 0-2 hyaline LPF (Negative) 05/01/19 14:55 Urine Mucus Moderate (Negative) 05/01/19 14:55 Ur Culture Indicated? C&s done as ordered 05/01/19 14:55 Urine Glucose Negative mg/dL (Negative) 05/01/19 14:55
--- NOTE | 2019-05-03 11:00 | PHARADMIT ---
Addendum entered by Trent Elizalde III 05/06/19 16:16: Pharmacy Note Subjective Cellulitis of lower limb. Developed ever on 05/04 and Vancomycin was restarted. Infection appears to be improving. Delirium from sepsis has resolved. Patient c/o of shoulder pain (Hx Rotator cuff) aggravated by a fall last week. Objective VS-OK Lytes, H&H,-OK WBC-5.95 SCr-0.76 Wgt-down (93.3 kg) Assessment On Cefazolin (Day 5) and Vancomycin. Vanco trough (16.1) Has some edema and Lasix has been ordered. Plan Original Note: Admission Pharmacy Clinical Review CELLULITS ASSOCIATED w DECUB ULC, ENECPHALO Code Status DNR Current Weight Wgt-98.6 kg Renally Cleared and Narrow Therapeutic Index Meds CrCl~ 47 mL/min Meds-OK QTc Value / Action Taken QTc-482 Lasix held, BP Control, Fever BP-160/75 Tmax- 37.4C Electrolytes reviewed Na- 139 K+3.9 Mag-2.1 DVT Prophylaxis Heparin, Opiate Usage / Scheduled Bowel Regimen Ordered Yes Yes Plt/SCr for Heparin / Enoxaparin Plts-253 SCr-0.92 INR for Warfarin inr-1.0 H/H stable, WBC/Bands H&H- 12.1/36.5 WBC- 7.34 Antibiotic appropriateness Ancef, Vancmycin Cultures and Sensitivities Blood, URine- No Growth Surgical ABX d/c within 24 hr NA DM control / Insulin Dosing BG- 121 Heart Failure (Check EF%) (TEDDY's, B-Block, Diuretics) Norvasc, Toprol-XL, IV to PO Switch No Home Meds Reviewed Yes Home Meds Not Ordered Lasix, Lisinopril, Calcium/D, XGEVA Comments RCRP-15.85
[2019-05-03] MEDS: Furosemide 20 MG/2 ML VIAL IVP (11:41)
[2019-05-03] MEDS: Normal Saline Flush 10 ML SYR IVP ×3 (11:42→19:48)
[2019-05-03 11:50] VITALS: BP 144/66; PULSE 61; RESP 17; TEMP 37.3; O2SAT 95
--- NOTE | 2019-05-03 12:28 | PT.INTREAT ---
Date of service: 05/03/19 Time of Service: 12:28 PT Notes Inpatient Physical Therapy Treatment Note [facility] Date: 05/03/19 PRECAUTIONS: Fall SUBJECTIVE: Lester states that he got up and walked to the bathroom and back to bed this morning, and that he is feeling better than when he was admitted. OBJECTIVE: PAIN: No c/o pain BED MOBILITY/TRANSFERS Rolling L/R: Min A Supine-sit: SBA with HOB at 40 degrees Sit-supine: Mod A with HOB at 10 degrees Sit-stand: Min A Stand-sit: Mod A in a.m.; CGA in p.m. GAIT Assistive Device: FWW Weight bearing: Full Assist: CGA Distance: 60' in a.m.; 30' in p.m. Deviation: Shoes on, fatigued with gait training THEREX: Patient completed a LE strengthening program, in a seated position, as per flow sheet. He also completes chair push-ups x15 for UE strengthening. Static sitting at EOB x5 minutes with supervision. ASSESSMENT: Patient tolerated session well with c/o increased fatigue and LE weakness with gait training. He was able to tolerate a progression in gait distance with FWW support and CGA. He would benefit from continued strengthening and gait and transfer training to return to baseline level of function. PLAN: Continue with PT's POC TREATMENT CODE/TIME: Session 1: 30 minutes; 30054 x2 Session 2: 30 minutes; [id number], [id number]
--- NOTE | 2019-05-03 13:37 | PDOC.CMPRO ---
- If Service Date Differs Date of service: 05/03/19 Time of Service: 13:37 Care Management Progress Note S/O: Jesus remains acute today and continues to receive IV antibiotics. He will need home health services for wound management when he returns home. Spouse requested [facility] if unavailable then [facility]. [facility] does not currently have services in the [place] area per facility coordinator. Lester wants to be able to return to outpatient PT however given the infection in his legs and buttocks, and decrease mobility he will not be able to attend outpatient sessions until recovered from LE's weakness and infection. Per provider he will need home health PT/OT nursing to manage his wounds and prevent worsening symptoms. A:Lester is a 78 year old male admitted sepsis, cellulitis. P: Lester will be discharged home when medically ready anticpate with additional support services through home health vs [facility]. Lester does have a PT consult to eval and continue to treat. Wound consult in place. CM to continue to provide support discharge planning and disposition.
--- NOTE | 2019-05-03 13:52 | CMPROGNOTE_ITS ---
- If Service Date Differs Date of service: 05/03/19 Time of Service: 13:37 Care Management Progress Note S/O: Jesus remains acute today and continues to receive IV antibiotics. He will need home health services for wound management when he returns home. Spouse requested [facility] if unavailable then [facility]. [facility] does not currently have services in the [place] area per operations manager/coordinator. Lester wants to be able to return to outpatient PT however given the infection in his legs and buttocks, an d decrease mobility he will not be able to attend outpatient sessions until recovered from LE's weakness and infection. Per provider he will need home health PT/OT nursing to manage his wounds and prevent worsening symptoms. A:Lester is a 78 year old male admitted sepsis, cellulitis. P: Lester will be discharged home when medically ready anticpate with additional support services through home health vs [facility]. Lester does have a PT consult to evks and continue to treat. Wound consult in place. CM to continue to provide support discharge planning and disposition.
[2019-05-03 16:02] VITALS: BP 110/57; PULSE 59; RESP 19; TEMP 37.4; O2SAT 94
[2019-05-03 19:38] VITALS: BP 145/82; PULSE 81; RESP 19; TEMP 36.8; O2SAT 95
[2019-05-03 23:20] VITALS: BP 154/70; PULSE 79; RESP 17; TEMP 37.6; O2SAT 95
[2019-05-04] VITALS (10 sets, daily range): BP systolic 135–170; BP diastolic 61–86; PULSE 65–82; RESP 16–21; TEMP 36.7–38.3; O2SAT 93–97
[2019-05-04] MEDS: Heparin 5,000 UNITS/ML VIAL 5000 UNITS SC ×3 (00:18→16:06)
[2019-05-04] MEDS: Acetaminophen 325 MG TAB PO ×2 (03:53→16:11)
[2019-05-04] MEDS: Normal Saline Flush 10 ML SYR IVP ×2 (07:31→17:58)
[2019-05-04 07:50] LABS: Abs Immature Grans 0.02 k/cumm (0.0-0.09); Absolute Basophil Count 0.01 k/cumm (0.0-0.2); Absolute Eosinophil Count 0.19 k/cumm (0.0-0.7); Absolute Monocyte Count 0.54 k/cumm (0.11-0.7); Absolute Neutrophil Count 6.11 k/cumm (1.2-6.7); Basophils % 0.1; Eosinophils % 2.5; HCT 35.2 % (40.0-50.0); HGB 11.6 g/dL (13.5-17.5); Immature Grans % 0.3; Mean Corpuscular Hemoglobin 33.5 pg (27.0-33.0); Mean Corpuscular Volume 101.7 fL (80-95); Mean Platelet Volume 9.6 fL (8.0-11.0); Monocytes % 7.2; Neutrophils % 81.9; Platelet Count 269 x1000/uL (130-400); RBC 3.46 m/cumm (4.50-6.00); RBC Distribution Width 13.8 % (11.8-14.1); White Blood Cell Count 7.47 k/cumm (4.4-10.8)
[2019-05-04] MEDS: amLODIPine 5 MG TAB PO (07:54)
[2019-05-04] MEDS: Metoprolol CR 100 MG TABCR PO (07:54)
[2019-05-04] MEDS: Multivitamin TAB 1 TAB PO (07:54)
[2019-05-04] MEDS: Gabapentin 300 MG CAP PO ×3 (07:54→19:35)
[2019-05-04] MEDS: Ascorbic Acid 500 MG TAB 1000 MG PO (07:54)
[2019-05-04] MEDS: Cyanocobalamin 500 MCG TAB 1000 MCG PO (07:56)
[2019-05-04] MEDS: Furosemide 20 MG TAB PO (07:56)
[2019-05-04] MEDS: Fluticasone NASAL SPRAY 16 GM BTL NS (07:56)
[2019-05-04 08:00] LABS: Anion Gap 7.4 mmol/L (3-11); BUN 18 mg/dL (7-18); C-Reactive Protein 11.09 mg/dL (0.0-0.3); CO2 27.6 mmol/L (21.0-32.0); CREATININE 0.87 mg/dL (0.70-1.30); Calcium 8.4 mg/dL (8.5-10.1); Chloride 106 mmol/L (98-107); Glucose 196 mg/dL (70-100); Magnesium 2.2 mg/dL (1.8-2.4); Potassium 3.5 mmol/L (3.5-5.1); Sodium 141 mmol/L (136-145)
[2019-05-04 08:29] LABS: Procalcitonin 1.9 ng/mL
--- NOTE | 2019-05-04 09:55 | PT.INTREAT ---
Date of service: 05/04/19 Time of Service: 09:55 PT Notes 05/04/19 SUBJECTIVE: Lester stating he is doing okay today. He would like to use the 4WW that he uses at home. He complains of some pain in the right LE and he references the lateral thigh with weight bearing. OBJECTIVE: Seated in recliner. Agreeable to PT. TRANSFERS Sit to stand: Min A Stand to sit: CGA GAIT Device: 4WW Weight bearing: Full Assist: CGA Distance: 60' Deviation: Cues for upright posturing, assist with walker management. ASSESSMENT: Tolerates PT well. He continues to keep walker too far out in front of him with gait. This is his baseline as I am familiar with this patient. He has to utilize the brakes with the 4WW on these floors and at home on his carpet he does not have to. PLAN: Continue with gait training per POC. Treatment time: 20' [id number] Tamiko Kovacs, [place]
--- NOTE | 2019-05-04 13:18 | PDOC.CMPRO ---
- If Service Date Differs Date of service: 05/04/19 Time of Service: 13:18 Care Management Progress Note S/O: Jesus remains acute today and continues to receive IV antibiotics. He will need home health services for wound management and PT while he recovers from acute illness. Lester's labs continue to improve, CM updated spouse r/t HH and she agrees to referral to [facility] at time of discharge. A:Lester is a 78 year old male admitted sepsis, cellulitis. P: Lester will be discharged home when medically ready anticipate with additional support services through home health for nursing, PT. OT and wound care.Lester does have a PT consult to eval and continue to treat. Wound consult in place. CM to continue to provide support discharge planning and disposition.
--- NOTE | 2019-05-04 16:05 | W.PM.PROGNOT ---
Date of Service Date of service: 05/04/19 Time of Service: 16:05 Assessment and Plan (1) Sepsis: Current visit: No Status: Acute Secondary to cellulitis - resolved. Continue antibiotics as below. (2) Cellulitis of lower limb: Current visit: Yes Status: Acute With skin wounds as likely portal of entry. Vancomycin discontinued with patient maintained on Cefazolin, currently day #3. However, patient with development of fever this afternoon. Reinitiate Vancomycin, Monitor CRP, temperature, as well inflammatory markers with CRP (currently down to 11 from original value of 22). Continue to monitor blood cultures. (3) Cellulitis of multiple sites of buttock: Current visit: No Status: Acute Continue antibiotics as above. Also receiving wound care. Mr. Adrian will benefit significantly from Home Health VNA for wound care. (4) Toxic metabolic encephalopathy: Current visit: No Status: Resolved Acute delirium in setting of sepsis - resolved. (5) Metastatic malignant neoplasm to prostate: Current visit: No Status: Chronic Continue Enzalutamide. Also on monthly Lupron with concurrent weekly Denosumab. (6) Hypertension: Current visit: No Status: Chronic Currently on CCB and BB, with TEDDY-I on hold. Monitor blood pressure, and resume Lisinopril when appropriate. Initial AWILDA is resolved. (7) DVT prophylaxis: Current visit: No Status: Acute On SC Heparin. Subjective Interval history since last seen: 78 year old man with a prior history significant for radiation induced decubitus skin breakdown, as well as Lower Extremity wounds, admitted from [facility] Emergency Department with a diagnosis of Cellulitis and Altered Mental Status. Mr. Adrian has a past Medical History significant for Metastatic Prostate Ca for which he has undergone XRT, TBI, HTN, dyslipidemia, chronic pain on opiate therapy, and baseline memory loss. The patient presented to the ED with reported somnolence and confusion, and found to have cellulitis of his buttocks surrounding his decubitus ulcers and LLE. His altered mental status was attributed to acute delirium in the setting of infection. The patient's spouse reported that he had fallen in the shower approximately 1 week prior, without significant sequale, but found him somnolent and altered early in the morning of admission. He was referred for admission for further evaluation and treatment. This morning Mr. Adrian appears improved, and does not have any significant complaints other than bowel incontinence this morning in the setting of loose stools. His lomeli remains in place. Wound care reports improvement overall in patient's skin ulcers, especially his decubitus ulcer. No overnight events reported. Patient remains afebrile. Exam Narrative Exam Narrative: General: Patient appears comfortable, AAOX3, NAD Neck: Supple CV: Regular, nontachycardic, S1S2, No rubs, murmurs, or gallops. Pulmonary: Clear to auscultation bilaterally, no wheezing, or rhonchi - mild crackles left base Abdomen: + Bowel Sounds, soft, nontender, nondistended Vascular: B/l lower extremity edema, mild on LLE, 2+ on RLE. Skin: Erythematous changes on RLE, wounds dressed. Decubitus Ulcer with mild surrounding Erythema, reportedly improved. Psych: Normal mood and affect. Objective Objective Clinical Data: Abnormal lab results 05/04/19 05/04/19 Range/Units 06:30 06:30 RBC 3.46 L (4.50-6.00) m/cumm Hgb 11.6 L (13.5-17.5) g/dL Hct 35.2 L (40.0-50.0) % MCV 101.7 H (80-95) fL MCH 33.5 H (27.0-33.0) pg Absolute Lymphocytes 0.60 L (1.2-3.4) k/cumm Glucose 196 H D (70-100) mg/dL Calcium 8.4 L (8.5-10.1) mg/dL C-Reactive Protein 11.09 H (0.0-0.3) mg/dL Vital Signs Temperature 38.0 C H 05/04/19 15:35 Temperature Source Tympanic 05/04/19 15:35 Pulse 74 05/04/19 15:35 Pulse Rhythm Regular 05/04/19 08:07 Pulse 77 05/01/19 16:10 Respiratory Rate 20 05/04/19 15:35 Respiratory Effort Non-Labored 05/04/19 08:07 Respiratory Depth Normal 05/04/19 08:07 Respiratory Pattern Normal 05/04/19 08:07 Blood Pressure 152/61 H 05/04/19 15:35 Blood Pressure Mean 78 05/01/19 16:01 Blood Pressure Position Supine 05/01/19 12:33 Pulse Oximetry 96 05/04/19 15:35 Oxygen Delivery Method Room Air 05/04/19 15:35 Oxygen Flow Rate 0 05/04/19 15:35 Pain Level 0 05/04/19 15:35 Comment 05/04/19 15:35 Intake & Output 05/03/19 05/04/19 05/04/19 23:59 11:59 23:59 Intake Total 770 / 2070 730 / 1020 290 / 1020 Output Total 600 / 1250 325 / 875 550 / 875 Balance 170 / 820 405 / 145 -260 / 145 Intake: IV 50 / 910 50 / 100 50 / 100 Oral 720 / 1160 680 / 920 240 / 920 Output: Urine 600 / 1250 325 / 875 550 / 875 Other: Urine Color Straw Straw Urine Appearance Clear Clear Stool Size Moderate Stool Characteristics Formed Brown Laboratory Results WBC 7.47 k/cumm (4.4-10.8) 05/04/19 06:30 RBC 3.46 m/cumm (4.50-6.00) L 05/04/19 06:30 Hgb 11.6 g/dL (13.5-17.5) L 05/04/19 06:30 Hct 35.2 % (40.0-50.0) L 05/04/19 06:30 MCV 101.7 fL (80-95) H 05/04/19 06:30 MCH 33.5 pg (27.0-33.0) H 05/04/19 06:30 MCHC 33.0 g/dL (32.0-36.0) 05/04/19 06:30 RDW 13.8 % (11.8-14.1) 05/04/19 06:30 Plt Count 269 x1000/uL (130-400) 05/04/19 06:30 MPV 9.6 fL (8.0-11.0) 05/04/19 06:30 Immature Gran % 0.3 05/04/19 06:30 Neutrophils % 81.9 05/04/19 06:30 Lymphocytes % 8.0 05/04/19 06:30 Monocytes % 7.2 05/04/19 06:30 Eosinophils % 2.5 05/04/19 06:30 Basophils % 0.1 05/04/19 06:30 Absolute Neutrophils 6.11 k/cumm (1.2-6.7) 05/04/19 06:30 Absolute Lymphocytes 0.60 k/cumm (1.2-3.4) L 05/04/19 06:30 Absolute Monocytes 0.54 k/cumm (0.11-0.7) 05/04/19 06:30 Absolute Eosinophils 0.19 k/cumm (0.0-0.7) 05/04/19 06:30 Absolute Basophils 0.01 k/cumm (0.0-0.2) 05/04/19 06:30 PT 10.1 sec (9.3-11.0) 05/01/19 12:51 INR 1.0 (0.9-1.1) 05/01/19 12:51 APTT 25.0 sec (21.0-31.4) 05/01/19 12:51 Sample Site Right radial 05/01/19 19:12 pCO2 49 mmHg (34-47) H 05/01/19 19:12 pO2 98 mmHg (83-108) 05/01/19 19:12 O2 Saturation 97 % (94-98) 05/01/19 19:12 ABG pH 7.40 (7.35-7.45) 05/01/19 19:12 ABG HCO3 30 mmol/L (22-28) H 05/01/19 19:12 ABG Total CO2 27 mmol/L (22-29) 05/01/19 19:12 ABG Base Excess 4.9 mmol/L (-3-3) H 05/01/19 19:12 VBG pH 7.34 (7.32-7.43) 05/01/19 12:51 VBG pCO2 59 mm/Hg (34-47) H 05/01/19 12:51 VBG pO2 27 mm/Hg (28-44) L 05/01/19 12:51 VBG HCO3 32 mmol/L (22-28) H 05/01/19 12:51 VBG Total CO2 29 mmol/L (22-29) 05/01/19 12:51 VBG O2 Saturation 45 % (70-80) L 05/01/19 12:51 VBG Base Excess 5.9 mmol/L (-3-3) H 05/01/19 12:51 Oxygen Liter Flow 2 L 05/01/19 19:12 Sodium 141 mmol/L (136-145) 05/04/19 06:30 Potassium 3.5 mmol/L (3.5-5.1) 05/04/19 06:30 Chloride 106 mmol/L (98-107) 05/04/19 06:30 Carbon Dioxide 27.6 mmol/L (21.0-32.0) 05/04/19 06:30 Anion Gap 7.4 mmol/L (3-11) 05/04/19 06:30 BUN 18 mg/dL (7-18) 05/04/19 06:30 Creatinine 0.87 mg/dL (0.70-1.30) 05/04/19 06:30 Estimated GFR/1.73 m2 >= 60.00 (mL/min/1.73m2) 05/04/19 06:30 Glucose 196 mg/dL (70-100) H D 05/04/19 06:30 Lactate 1.0 mmol/l (0.6-1.4) 05/01/19 20:17 Calcium 8.4 mg/dL (8.5-10.1) L 05/04/19 06:30 Magnesium 2.2 mg/dL (1.8-2.4) 05/04/19 06:30 Total Bilirubin 0.8 mg/dL (0.2-1.0) 05/01/19 12:51 AST 24 U/L (15-37) 05/01/19 12:51 ALT 23 U/L (12-78) 05/01/19 12:51 Alkaline Phosphatase 81 U/L (46-116) 05/01/19 12:51 Ammonia < 10 umol/L (11-32) L 05/01/19 12:51 Troponin I < 0.05 ng/mL (0.00-0.06) 05/01/19 12:51 C-Reactive Protein 11.09 mg/dL (0.0-0.3) H 05/04/19 06:30 NT-Pro-B Natriuret Pep 1606 pg/mL (-299) H 05/01/19 12:51 Total Protein 7.0 g/dL (6.4-8.2) 05/01/19 12:51 Albumin 3.1 g/dL (3.4-5.0) L 05/01/19 12:51 Vitamin B12 469 pg/mL (193-986) 05/03/19 07:15 Folate 18.2 ng/mL (8.6-20.0) 05/03/19 07:15 Procalcitonin 1.9 ng/mL 05/04/19 06:30 TSH 0.82 uIU/mL (0.358-3.74) 05/01/19 12:51 Urine Color Yellow (Yellow) 05/01/19 14:55 Urine Clarity Clear (Clear) 05/01/19 14:55 Urine pH 5.5 (5-8) 05/01/19 14:55 Ur Specific [place] 1.020 (1.005-1.025) 05/01/19 14:55 Urine Protein Trace mg/dL (Negative) H 05/01/19 14:55 Urine Ketones Negative mg/dL (Negative) 05/01/19 14:55 Urine Blood Trace-intact (Negative) H 05/01/19 14:55 Urine Nitrite Negative (Negative) 05/01/19 14:55 Urine Bilirubin Negative (Negative) 05/01/19 14:55 Urine Urobilinogen 0.2 EU/dL (Up TO 0.2) 05/01/19 14:55 Ur Leukocyte Esterase Negative (Negative) 05/01/19 14:55 Urine RBC 10-20 (0-2) H 05/01/19 14:55 Urine WBC 3-5 HPF (0-5) 05/01/19 14:55 Ur Epithelial Cells Few HPF (Negative) 05/01/19 14:55 Urine Crystals Negative HPF (Negative) 05/01/19 14:55 Urine Bacteria Few HPF (Negative) 05/01/19 14:55 Urine Casts 0-2 hyaline LPF (Negative) 05/01/19 14:55 Urine Mucus Moderate (Negative) 05/01/19 14:55 Ur Culture Indicated? C&s done as ordered 05/01/19 14:55 Urine Glucose Negative mg/dL (Negative) 05/01/19 14:55
[2019-05-04] MEDS: Normal Saline 500 ML 30 ML IV (17:57)
[2019-05-04] MEDS: VANCOMYCIN 1,500 MG in Normal Saline 500 ML 500 MG IV (19:00)
[2019-05-05] MEDS: Heparin 5,000 UNITS/ML VIAL 5000 UNITS SC ×3 (00:13→16:07)
[2019-05-05] MEDS: Normal Saline 500 ML 30 ML IV ×2 (02:27→17:52)
[2019-05-05 03:23] VITALS: BP 150/60; PULSE 74; RESP 18; TEMP 36.4; O2SAT 95
[2019-05-05 07:26] LABS: Abs Immature Grans 0.03 k/cumm (0.0-0.09); Absolute Basophil Count 0.01 k/cumm (0.0-0.2); Absolute Eosinophil Count 0.29 k/cumm (0.0-0.7); Absolute Lymphocyte Count 0.63 k/cumm (1.2-3.4); Absolute Monocyte Count 0.65 k/cumm (0.11-0.7); Absolute Neutrophil Count 5.17 k/cumm (1.2-6.7); Basophils % 0.1; Eosinophils % 4.3; HCT 32.9 % (40.0-50.0); HGB 10.8 g/dL (13.5-17.5); Immature Grans % 0.4; Lymphocytes % 9.3; Mean Corp. HGB Concentration 32.8 g/dL (32.0-36.0); Mean Corpuscular Hemoglobin 33.4 pg (27.0-33.0); Mean Corpuscular Volume 101.9 fL (80-95); Mean Platelet Volume 9.3 fL (8.0-11.0); Monocytes % 9.6; Neutrophils % 76.3; Platelet Count 277 x1000/uL (130-400); RBC 3.23 m/cumm (4.50-6.00); RBC Distribution Width 13.6 % (11.8-14.1); White Blood Cell Count 6.78 k/cumm (4.4-10.8)
[2019-05-05 07:37] LABS: Anion Gap 7.2 mmol/L (3-11); BUN 13 mg/dL (7-18); CO2 27.8 mmol/L (21.0-32.0); CREATININE 0.85 mg/dL (0.70-1.30); Calcium 8.3 mg/dL (8.5-10.1); Chloride 108 mmol/L (98-107); Glucose 121 mg/dL (70-100); Magnesium 2.2 mg/dL (1.8-2.4); Potassium 3.6 mmol/L (3.5-5.1); Sodium 143 mmol/L (136-145)
[2019-05-05 07:51] VITALS: PULSE 70; RESP 21; TEMP 36.4; O2SAT 96
[2019-05-05] MEDS: Multivitamin TAB 1 TAB PO (08:45)
[2019-05-05] MEDS: Cyanocobalamin 500 MCG TAB 1000 MCG PO (08:45)
[2019-05-05] MEDS: Normal Saline Flush 10 ML SYR IVP ×4 (08:45→19:50)
[2019-05-05] MEDS: amLODIPine 5 MG TAB PO (08:45)
[2019-05-05] MEDS: Metoprolol CR 100 MG TABCR PO (08:45)
[2019-05-05] MEDS: Ascorbic Acid 500 MG TAB 1000 MG PO (08:45)
[2019-05-05] MEDS: Gabapentin 300 MG CAP PO (08:46)
[2019-05-05] MEDS: Furosemide 20 MG TAB PO (08:46)
--- NOTE | 2019-05-05 09:46 | PT.INTREAT ---
Date of service: 05/05/19 Time of Service: 09:46 PT Notes 05/05/19 SUBJECTIVE: Lester noting that he is quite fatigued. He was up in the night to use the bathroom x 8. His legs are bothering him. OBJECTIVE: Pt does not want to walk in the hallways. Nursing would like him back in bed. TRANSFERS Sit to stand: min A Stand to sit: CGA Sit to supine: Mod A GAIT Device: FWW Weight bearing: Full Assist: CGA Distance: 5' to bed ASSESSMENT: Pt quite fatigued today with increase in discomfort in bilateral LE's as well as LE edema. PT limited today due to this. PLAN: Continue current POC progressing toward's established goals. Treatment time: 10 minutes [id number] Tam[address]acs, STRE[employer] LIGHT INSPECTOR
--- NOTE | 2019-05-05 09:49 | PTTR_ITS ---
Date of service: 05/05/19 Time of Service: 09:46 PT Notes 05/05/19 SUBJECTIVE: Lester noting that he is quite fatigued. He was up in the night to use the bathroom x 8. His legs are bothering him. OBJECTIVE: Pt does not want to walk in the hallways. Nursing would like him back in bed. TRANSFERS Sit to stand: min A Stand to sit: CGA Sit to supine: Mod A GAIT Device: FWW Weight bearing: Full Assist: CGA Distance: 5' to bed ASSESSMENT: Pt quite fatigued today with increase in discomfort in bilateral LE's as well as LE edema. PT limited today due to this. PLAN: Continue current POC progressing toward's established goals. Treatment time: 10 minutes [id number] Tamiko Kovacs, CIGARETTE CATCHER
[2019-05-05] MEDS: oxyCODONE 15 MG TAB 7.5 MG PO (11:02)
[2019-05-05] MEDS: fentaNYL 75 MCG PATCH TD (11:02)
[2019-05-05] MEDS: Lisinopril 5 MG TAB PO (11:18)
[2019-05-05] MEDS: Potassium Chloride 20 MEQ TABCR 40 MEQ PO (11:18)
[2019-05-05 11:25] VITALS: BP 156/70; PULSE 73; RESP 20; TEMP 37; O2SAT 97
--- NOTE | 2019-05-05 12:46 | PGE_ITS ---
Date of Service Date of service: 05/05/19 Time of Service: 12:44 Assessment and Plan (1) Sepsis: Current visit: No Status: Acute Secondary to cellulitis - resolved. Continue antibiotics as below. (2) Cellulitis of lower limb: Current visit: Yes Status: Acute With skin wounds as likely portal of entry. Vancomycin discontinued with patient maintained on Cefazolin, currently day #4. However, patient with development of fever yesterday afternoon and evening approximately 24 hours post discontinuation of Vancomycin. Reinitiated Vanco 05/04, now with worsening cellulitic changes but afebrile. Monitor temperature, blood cultures, as well inflammatory markers with CRP (currently down to 11 from original value of 22). If improving consider change to oral formulation soon, to include MRSA coverage. Will also change to low dose IV Furosemide and increase to BID dosing given increased edema. (3) Cellulitis of multiple sites of buttock: Current visit: No Status: Acute Continue antibiotics as above. Also receiving wound care. Mr. Adrian will benefit significantly from Home Health VNA for wound care. (4) Toxic metabolic encephalopathy: Current visit: No Status: Resolved Acute delirium in setting of sepsis - resolved. (5) Metastatic malignant neoplasm to prostate: Current visit: No Status: Chronic Continue Enzalutamide. Also on monthly Lupron with concurrent weekly Denosumab. (6) Hypertension: Current visit: No Status: Chronic Currently on CCB and BB, with TEDDY-I restarted given improved blood pressures and resolution of AWILDA. (7) DVT prophylaxis: Current visit: No Status: Acute On SC Heparin. Subjective Interval history since last seen: 78 year old man with a prior history significant for radiation induced skin breakdown, as well as Lower Extremity wounds, admitted from [facility] Emergency Department on 05/01 with a diagnosis of Cellulitis and Altered Mental Status. Mr. Adrian has a past Medical History significant for Metastatic Prostate Ca for which he has undergone XRT, TBI, HTN, dyslipidemia, chronic pain on opiate therapy, and baseline memory loss. The patient presented to the ED with reported somnolence and confusion, and found to have cellulitis of his buttocks surrounding his decubitus ulcers and LLE. His altered mental status was attributed to acute delirium in the setting of infection. The patient's spouse reported that he had fallen in the shower approximately 1 week prior, without significant sequale, but found him somnolent and altered early in the morning of admission. He was referred for admission for further evaluation and treatment. This morning Mr. Adrian appears overall worse than yesterday from the perspective of his infection, but has become afebrile following reinitiation of Vancomycin. His lomeli remains in place. No overnight events reported. Patient remains afebrile. Exam Narrative Exam Narrative: General: Patient appears comfortable, AAOX3, NAD Neck: Supple CV: Regular, nontachycardic, S1S2, No rubs, murmurs, or gallops. Pulmonary: Clear to auscultation bilaterally, no wheezing, or rhonchi - mild crackles left base Abdomen: + Bowel Sounds, soft, nontender, nondistended Vascular: B/l lower extremity edema, worsening and 1+ on LLE, 3+ on RLE. Skin: Erythematous changes on RLE worsened, wounds dressed. Decubitus Ulcer on prior exam with mild surrounding Erythema, reportedly improved. Psych: Normal mood and affect. Objective Objective Clinical Data: Abnormal lab results 05/05/19 05/05/19 Range/Units 06:40 06:40 RBC 3.23 L (4.50-6.00) m/cumm Hgb 10.8 L (13.5-17.5) g/dL Hct 32.9 L (40.0-50.0) % MCV 101.9 H (80-95) fL MCH 33.4 H (27.0-33.0) pg Absolute Lymphocytes 0.63 L (1.2-3.4) k/cumm Chloride 108 H (98-107) mmol/L Glucose 121 H D (70-100) mg/dL Calcium 8.3 L (8.5-10.1) mg/dL Vital Signs Temperature 37 C 05/05/19 11:25 Temperature Source Tympanic 05/05/19 11:25 Pulse 73 05/05/19 11:25 Pulse Rhythm Irregular 05/05/19 08:35 Pulse 77 05/01/19 16:10 Respiratory Rate 20 05/05/19 11:25 Respiratory Effort Non-Labored 05/05/19 08:35 Respiratory Depth Normal 05/05/19 08:35 Respiratory Pattern Normal 05/05/19 08:35 Blood Pressure 156/70 H 05/05/19 11:25 Blood Pressure Mean 78 05/01/19 16:01 Blood Pressure Position Supine 05/01/19 12:33 Pulse Oximetry 97 05/05/19 11:25 Oxygen Delivery Method Room Air 05/05/19 11:25 Oxygen Flow Rate 0 05/05/19 11:25 Pain Level 0 05/04/19 15:35 Comment 05/04/19 18:00 Intake & Output 05/04/19 05/05/19 05/05/19 23:59 11:59 23:59 Intake Total 1159 / 1889 311.5 / 311.5 Output Total 800 / 1325 500 / 1100 600 / 1100 Balance 359 / 564 -188.5 / -788.5 -600 / -788.5 Weight 99 kg Intake: IV 679 / 729 71.5 / 71.5 Oral 480 / 1160 240 / 240 Output: Urine 800 / 1325 500 / 1100 600 / 1100 Other: Urine Color Yellow Yellow Light Shira Urine Appearance Clear Clear Clear Stool Size Small Moderate Stool Characteristics Soft Soft Formed Brown Brown Laboratory Results WBC 6.78 k/cumm (4.4-10.8) 05/05/19 06:40 RBC 3.23 m/cumm (4.50-6.00) L 05/05/19 06:40 Hgb 10.8 g/dL (13.5-17.5) L 05/05/19 06:40 Hct 32.9 % (40.0-50.0) L 05/05/19 06:40 MCV 101.9 fL (80-95) H 05/05/19 06:40 MCH 33.4 pg (27.0-33.0) H 05/05/19 06:40 MCHC 32.8 g/dL (32.0-36.0) 05/05/19 06:40 RDW 13.6 % (11.8-14.1) 05/05/19 06:40 Plt Count 277 x1000/uL (130-400) 05/05/19 06:40 MPV 9.3 fL (8.0-11.0) 05/05/19 06:40 Immature Gran % 0.4 05/05/19 06:40 Neutrophils % 76.3 05/05/19 06:40 Lymphocytes % 9.3 05/05/19 06:40 Monocytes % 9.6 05/05/19 06:40 Eosinophils % 4.3 05/05/19 06:40 Basophils % 0.1 05/05/19 06:40 Absolute Neutrophils 5.17 k/cumm (1.2-6.7) 05/05/19 06:40 Absolute Lymphocytes 0.63 k/cumm (1.2-3.4) L 05/05/19 06:40 Absolute Monocytes 0.65 k/cumm (0.11-0.7) 05/05/19 06:40 Absolute Eosinophils 0.29 k/cumm (0.0-0.7) 05/05/19 06:40 Absolute Basophils 0.01 k/cumm (0.0-0.2) 05/05/19 06:40 PT 10.1 sec (9.3-11.0) 05/01/19 12:51 INR 1.0 (0.9-1.1) 05/01/19 12:51 APTT 25.0 sec (21.0-31.4) 05/01/19 12:51 Sample Site Right radial 05/01/19 19:12 pCO2 49 mmHg (34-47) H 05/01/19 19:12 pO2 98 mmHg (83-108) 05/01/19 19:12 O2 Saturation 97 % (94-98) 05/01/19 19:12 ABG pH 7.40 (7.35-7.45) 05/01/19 19:12 ABG HCO3 30 mmol/L (22-28) H 05/01/19 19:12 ABG Total CO2 27 mmol/L (22-29) 05/01/19 19:12 ABG Base Excess 4.9 mmol/L (-3-3) H 05/01/19 19:12 VBG pH 7.34 (7.32-7.43) 05/01/19 12:51 VBG pCO2 59 mm/Hg (34-47) H 05/01/19 12:51 VBG pO2 27 mm/Hg (28-44) L 05/01/19 12:51 VBG HCO3 32 mmol/L (22-28) H 05/01/19 12:51 VBG Total CO2 29 mmol/L (22-29) 05/01/19 12:51 VBG O2 Saturation 45 % (70-80) L 05/01/19 12:51 VBG Base Excess 5.9 mmol/L (-3-3) H 05/01/19 12:51 Oxygen Liter Flow 2 L 05/01/19 19:12 Sodium 143 mmol/L (136-145) 05/05/19 06:40 Potassium 3.6 mmol/L (3.5-5.1) 05/05/19 06:40 Chloride 108 mmol/L (98-107) H 05/05/19 06:40 Carbon Dioxide 27.8 mmol/L (21.0-32.0) 05/05/19 06:40 Anion Gap 7.2 mmol/L (3-11) 05/05/19 06:40 BUN 13 mg/dL (7-18) 05/05/19 06:40 Creatinine 0.85 mg/dL (0.70-1.30) 05/05/19 06:40 Estimated GFR/1.73 m2 >= 60.00 (mL/min/1.73m2) 05/05/19 06:40 Glucose 121 mg/dL (70-100) H D 05/05/19 06:40 Lactate 1.0 mmol/l (0.6-1.4) 05/01/19 20:17 Calcium 8.3 mg/dL (8.5-10.1) L 05/05/19 06:40 Magnesium 2.2 mg/dL (1.8-2.4) 05/05/19 06:40 Total Bilirubin 0.8 mg/dL (0.2-1.0) 05/01/19 12:51 AST 24 U/L (15-37) 05/01/19 12:51 ALT 23 U/L (12-78) 05/01/19 12:51 Alkaline Phosphatase 81 U/L (46-116) 05/01/19 12:51 Ammonia < 10 umol/L (11-32) L 05/01/19 12:51 Troponin I < 0.05 ng/mL (0.00-0.06) 05/01/19 12:51 C-Reactive Protein 11.09 mg/dL (0.0-0.3) H 05/04/19 06:30 NT-Pro-B Natriuret Pep 1606 pg/mL (-299) H 05/01/19 12:51 Total Protein 7.0 g/dL (6.4-8.2) 05/01/19 12:51 Albumin 3.1 g/dL (3.4-5.0) L 05/01/19 12:51 Vitamin B12 469 pg/mL (193-986) 05/03/19 07:15 Folate 18.2 ng/mL (8.6-20.0) 05/03/19 07:15 Procalcitonin 1.9 ng/mL 05/04/19 06:30 TSH 0.82 uIU/mL (0.358-3.74) 05/01/19 12:51 Urine Color Yellow (Yellow) 05/01/19 14:55 Urine Clarity Clear (Clear) 05/01/19 14:55 Urine pH 5.5 (5-8) 05/01/19 14:55 Ur Specific [place] 1.020 (1.005-1.025) 05/01/19 14:55 Urine Protein Trace mg/dL (Negative) H 05/01/19 14:55 Urine Ketones Negative mg/dL (Negative) 05/01/19 14:55 Urine Blood Trace-intact (Negative) H 05/01/19 14:55 Urine Nitrite Negative (Negative) 05/01/19 14:55 Urine Bilirubin Negative (Negative) 05/01/19 14:55 Urine Urobilinogen 0.2 EU/dL (Up TO 0.2) 05/01/19 14:55 Ur Leukocyte Esterase Negative (Negative) 05/01/19 14:55 Urine RBC 10-20 (0-2) H 05/01/19 14:55 Urine WBC 3-5 HPF (0-5) 05/01/19 14:55 Ur Epithelial Cells Few HPF (Negative) 05/01/19 14:55 Urine Crystals Negative HPF (Negative) 05/01/19 14:55 Urine Bacteria Few HPF (Negative) 05/01/19 14:55 Urine Casts 0-2 hyaline LPF (Negative) 05/01/19 14:55 Urine Mucus Moderate (Negative) 05/01/19 14:55 Ur Culture Indicated? C&s done as ordered 05/01/19 14:55 Urine Glucose Negative mg/dL (Negative) 05/01/19 14:55
--- NOTE | 2019-05-05 13:15 | CMPROGNOTE_ITS ---
- If Service Date Differs Date of service: 05/05/19 Time of Service: 13:13 Care Management Progress Note S/O: Jesus remains acute today and continues to receive IV antibiotics vancomycin was restarted due to fever yesterday afternoon . Blood cultures are pending he continues to have wound care. He will need home health services for wound management and PT while he recovers from acute illness. Lester's labs continue to improve, CM updated spouse r/t HH and she agrees to referral to [facility] at time of discharge. A:Lester is a 78 year old male admitted sepsis, cellulitis. P: Lester will be discharged home when medically ready anticipate with additional support services through home health for nursing, PT. OT and wound care.Lester does have a PT consult to eval and continue to treat. Wound consult in place. CM to continue to provide support discharge planning and disposition.
[2019-05-05] MEDS: Gabapentin 300 MG CAP 600 MG PO ×2 (14:46→19:49)
[2019-05-05 15:51] VITALS: BP 151/69; PULSE 71; RESP 19; TEMP 37.7; O2SAT 95
[2019-05-05] MEDS: Furosemide 20 MG/2 ML VIAL IVP (16:07)
[2019-05-05 19:00] VITALS: BP 146/78; PULSE 88; RESP 19; TEMP 36.5; O2SAT 95
[2019-05-05 23:24] VITALS: BP 129/68; PULSE 63; RESP 18; TEMP 37.1; O2SAT 95
[2019-05-06] VITALS (7 sets, daily range): BP systolic 133–168; BP diastolic 67–76; PULSE 69–78; RESP 16–20; TEMP 36.1–37.9; O2SAT 94–97
[2019-05-06] MEDS: Heparin 5,000 UNITS/ML VIAL 5000 UNITS SC ×2 (00:24→09:13)
[2019-05-06] MEDS: Normal Saline Flush 10 ML SYR IVP ×3 (02:14→20:32)
[2019-05-06 07:25] LABS: Abs Immature Grans 0.02 k/cumm (0.0-0.09); Absolute Basophil Count 0.02 k/cumm (0.0-0.2); Absolute Eosinophil Count 0.31 k/cumm (0.0-0.7); Absolute Lymphocyte Count 0.72 k/cumm (1.2-3.4); Absolute Monocyte Count 0.68 k/cumm (0.11-0.7); Basophils % 0.3; Eosinophils % 5.2; HCT 33.8 % (40.0-50.0); HGB 10.8 g/dL (13.5-17.5); Immature Grans % 0.3; Lymphocytes % 12.1; Mean Corpuscular Volume 103.4 fL (80-95); Mean Platelet Volume 8.9 fL (8.0-11.0); Monocytes % 11.4; Neutrophils % 70.7; Platelet Count 310 x1000/uL (130-400); RBC 3.27 m/cumm (4.50-6.00); White Blood Cell Count 5.95 k/cumm (4.4-10.8)
[2019-05-06 07:40] LABS: Anion Gap 4.8 mmol/L (3-11); BUN 11 mg/dL (7-18); C-Reactive Protein 9.39 mg/dL (0.0-0.3); CO2 30.2 mmol/L (21.0-32.0); CREATININE 0.76 mg/dL (0.70-1.30); Chloride 109 mmol/L (98-107); Glucose 106 mg/dL (70-100); Magnesium 2.3 mg/dL (1.8-2.4); Potassium 3.8 mmol/L (3.5-5.1); Sodium 144 mmol/L (136-145)
[2019-05-06 07:42] LABS: Vancomycin, Trough 16.1 ug/mL (10.0-20.0)
[2019-05-06 07:52] LABS: Calcium 8.3 mg/dL (8.5-10.1)
--- NOTE | 2019-05-06 08:24 | PDOC.CMPRO ---
- If Service Date Differs Date of service: 05/06/19 Time of Service: 08:24 Care Management Progress Note S/O: Lester was sitting up in bed talking with his Lotus when CM came to visit. He states he is feeling much better. He states he is looking forward to going home but would like the catheter removed first. He says he really dislikes it. Discharge plans were discussed with Lester and Lotus. They shared that they would like home health nursing for dressing changes and wound care, and also home PT and OT. A:Lester is a 78 year old male admitted sepsis, cellulitis. P: Lester will be discharged home when medically ready anticipate with additional support services through home health for nursing, PT. OT and wound care.Lester does have a PT consult to eval and continue to treat. Wound consult in place. CM to continue to provide support discharge planning and disposition.
--- NOTE | 2019-05-06 09:08 | OT.INIE ---
Occupational Therapy Notes Inpatient Occupational Therapy Evaluation Date: 05/06/19 Referring Doctor: Loly Brown MD OT Orders: Eval and Treat Precautions: Contact, Fall PATIENT PROFILE/ADMITTING DIAGNOSIS: Pt is an 78 year old male who was admitted through the ER for sepsis. Past Medical History: TBI, metastatic prostate cancer, hypertension, hyperlipidemia, memory loss, chronic pain on opioids Social History/Home Situation: Pt lives in a private home with his , he is currently battling cancer. He is functionally (I) in all ADLs/IADLs at baseline. Pt states that he has both a tub shower and a walk in shower. He performs his functional mobility with use of a walker and performs outpatient PT at [facility] 3x/week. He has a regular toilet and reports that other than driving he is able to (I) to perform all ADLs without (A). His does (A) in the home when needed. Equipment owned/DME: Cane, FWW, 4WW SUBJECTIVE: Pt was sitting in bed when OT arrived. He was agreeable to OT consult. OBJECTIVE: General Observation: Pleasant, blister on foot, answered questions appropriately Mental Status: A&Ox3 Pain: c/o pain in (L) shoulder and (B) LE ROM: RUE Shoulder flexion 150*, elbow WNL, hand, wrist and digits WNL L UE Limited actively to 80*, passively 120*, elbow WNL, hand, wrist and digits WNL STRENGTH: RUE Shoulder flexion 3/5, bicep 3+/5, tricep 3/5, field sales specialist is symmetrical LUE Unable to test shoulder flexion, bicep 3+/5, tricep 3/5, field sales specialist is symmetrical FUNCTIONAL MOBILITY/ADLS: Transfers Supine-sit (I) Sit-supine (I) BATHING Pt denies for today. DRESSING Sitting in bed Dressing UE NT Dressing LE Max (A) donning (B) socks at this time. GROOMING Able to perform AROM WFL reaching behind head and to mouth to be able to (I) brush teeth and hair. TOILETING NT EATING NT BALANCE: Static sitting Good Dynamic Sitting Good SPECIAL TESTS: Daily Activity Limitations Standardized Measure [facility] AM -PAC ?6 clicks? Daily Activity Inpatient Short Form: Raw score: 19 Standardized score: 40.22 CMS score: 42.80% INFORMED CONSENT/EDUCATION: Pt instructed in purpose of OT Consult and plan of care. ASSESSMENT: Patient is a 78-year-old male referred to occupational therapy services with diagnosis of sepsis. Patient presents with clinical signs and symptoms consistent with dx, Pt will require skilled OT services in order to return home with (A) from his and return to his premorbid level of function,as demonstrated by the following impairment level findings: Decreased functional activity tolerance, (L) shoulder pain and decreased AROM which is chronic for pt, per OT assessment he has decreased ROM and increased pain from his baseline level of function, pain in (B) LE d/t sepsis, decreased functional mobility with ADLs. Impairments are contributing to the following functional limitations: S/p fall in home when exiting shower, decreased functional activity tolerance, unable to use (B) UE to perform ADLs, decreased gross and fine motor control of (L) UE, able to put on his socks (I) at this time, Unable to (I) perform functional mobility. AMPAC score 19, CMS score 42.80% Patient is assessed as a Moderate 10209 complexity based on the following: History: See Above Examination: See Above Presentation: Evolving Decision Making: AMPAC score 19, CMS score 42.80% GOALS Goals x1 week 1. Transfers with FWW (S) 2. Dressing (I) in sitting position UE/LE 3. Bathing in sitting (I) with UE bathing. 4. Toileting on toilet (I) 5. Eating (I) 6. Grooming standing at sink with FWW (I) PLAN OF CARE/TREATMENT PLAN: 1x/day, 5 days/ week x 1week Initiate Occupational Therapy Services for bathing, dressing, grooming, toileting, eating, transfer training. DISCHARGE RECOMMENDATIONS Based on pt current level of care OT recommends that pt return home with HH services vs. Short term stay in SNF . TREATMENT TIME/MINUTES/CODES 42144, 25 minutes (07:00) [facility]
[2019-05-06] MEDS: Fluticasone NASAL SPRAY 16 GM BTL NS (09:12)
--- NOTE | 2019-05-06 09:12 | OTIE_ITS ---
Occupational Therapy Notes Inpatient Occupational Therapy Evaluation Date: 05/06/19 Referring Doctor: Loly Brown MD OT Orders: Eval and Treat Precautions: Contact, Fall PATIENT PROFILE/ADMITTING DIAGNOSIS: Pt is an 78 year old male who was admitted through the ER for sepsis. Past Medical History: TBI, metastatic prostate cancer, hypertension, hyperlipidemia, memory loss, chronic pain on opioids Social History/Home Situation: Pt lives in a private home with his , he is currently battling cancer. He is functionally (I) in all ADLs/IADLs at baseline. Pt states that he has both a tub shower and a walk in shower. He performs his functional mobility with use of a walker and performs outpatient PT at [facility] 3x/week. He has a regular toilet and reports that other than driving he is able to (I) to perform all ADLs without (A). His does (A) in the home when needed. Equipment owned/DME: Cane, FWW, 4WW SUBJECTIVE: Pt was sitting in bed when OT arrived. He was agreeable to OT consult. OBJECTIVE: General Observation: Pleasant, blister on foot, answered questions appropriately Mental Status: A&Ox3 Pain: c/o pain in (L) shoulder and (B) LE ROM: RUE Shoulder flexion 150*, elbow WNL, hand, wrist and digits WNL L UE Limited actively to 80*, passively 120*, elbow WNL, hand, wrist and digits WNL STRENGTH: RUE Shoulder flexion 3/5, bicep 3+/5, tricep 3/5, seismic prospecting supervisor is symmetrical LUE Unable to test shoulder flexion, bicep 3+/5, tricep 3/5, seismic prospecting supervisor is symmetrical FUNCTIONAL MOBILITY/ADLS: Transfers Supine-sit (I) Sit-supine (I) BATHING Pt denies for today. DRESSING Sitting in bed Dressing UE NT Dressing LE Max (A) donning (B) socks at this time. GROOMING Able to perform AROM WFL reaching behind head and to mouth to be able to (I) brush teeth and hair. TOILETING NT EATING NT BALANCE: Static sitting Good Dynamic Sitting Good SPECIAL TESTS: Daily Activity Limitations Standardized Measure [facility] AM -PAC ?6 clicks? Daily Activity Inpatient Short Form: Raw score: 19 Standardized score: 40.22 CMS score: 42.80% INFORMED CONSENT/EDUCATION: Pt instructed in purpose of OT Consult and plan of care. ASSESSMENT: Patient is a 78-year-old male referred to occupational therapy services with diagnosis of sepsis. Patient presents with clinical signs and symptoms consistent with dx, Pt will require skilled OT services in order to return home with (A) from his and return to his premorbid level of function,as demonstrated by the following impairment level findings: Decreased functional activity tolerance, (L) shoulder pain and decreased AROM which is chronic for pt, per OT assessment he has decreased ROM and increased pain from his baseline level of function, pain in (B) LE d/t sepsis, decreased functional mobility with ADLs. Impairments are contributing to the following functional limitations: S/p fall in home when exiting shower, decreased functional activity tolerance, unable to use (B) UE to perform ADLs, decreased gross and fine motor control of (L) UE, able to put on his socks (I) at this time, Unable to (I) perform functional mobility. AMPAC score 19, CMS score 42.80% Patient is assessed as a Moderate 44529 complexity based on the following: History: See Above Examination: See Above Presentation: Evolving Decision Making: AMPAC score 19, CMS score 42.80% GOALS Goals x1 week 1. Transfers with FWW (S) 2. Dressing (I) in sitting position UE/LE 3. Bathing in sitting (I) with UE bathing. 4. Toileting on toilet (I) 5. Eating (I) 6. Grooming standing at sink with FWW (I) PLAN OF CARE/TREATMENT PLAN: 1x/day, 5 days/ week x 1week Initiate Occupational Therapy Services for bathing, dressing, grooming, toile ting, eating, transfer training. DISCHARGE RECOMMENDATIONS Based on pt current level of care OT recommends that pt return home with HH services vs. Short term stay in SNF . TREATMENT TIME/MINUTES/CODES 10774, 25 minutes (07:00) [facility]
[2019-05-06] MEDS: Cyanocobalamin 500 MCG TAB 1000 MCG PO (09:13)
[2019-05-06] MEDS: Furosemide 20 MG/2 ML VIAL IVP (09:13)
[2019-05-06] MEDS: Lisinopril 5 MG TAB PO (09:14)
[2019-05-06] MEDS: Gabapentin 300 MG CAP 600 MG PO ×3 (09:14→20:32)
[2019-05-06] MEDS: Multivitamin TAB 1 TAB PO (09:14)
[2019-05-06] MEDS: Ascorbic Acid 500 MG TAB 1000 MG PO (09:14)
[2019-05-06] MEDS: oxyCODONE 15 MG TAB 7.5 MG PO (09:14)
[2019-05-06] MEDS: Metoprolol CR 100 MG TABCR PO (09:15)
[2019-05-06] MEDS: amLODIPine 5 MG TAB PO (09:15)
[2019-05-06] MEDS: Potassium Chloride 20 MEQ TABCR PO (09:39)
[2019-05-06 09:56] LABS: Anaplasma phagocytophilum Negative (Negative); B. miyamotoi PCR Negative (Negative); Babesia divergens/MO-1 Negative (Negative); Babesia duncani Negative (Negative); Babesia microti Negative (Negative); Ehrlichia chaffeensis Negative (Negative); Ehrlichia ewingii/canis Negative (Negative); Ehrlichia muris eauclairensis Negative (Negative)
--- NOTE | 2019-05-06 11:27 | DI.RAD_ITS ---
SYMPTOM/DIAGNOSIS: LFT SHOULDER PAIN, POST FALL LEFT SHOULDER: 05/06 The patient reportedly has a history of metastatic prostatic carcinoma. There are severe degenerative changes of the glenohumeral and acromioclavicular joints. Expansion and sclerosis of the distal clavicle may represent a metastatic lesion or may be related to old fracture. No acute fracture identified. The humeral head abuts the undersurface of the acromion which appears mildly eroded from the humeral head consistent with a chronic severe rotator cuff tear. CONCLUSION: No evidence of acute fracture or dislocation.
[2019-05-06 12:01] LABS: Lyme Ab w Rflx to Lyme Confirm Negative
--- NOTE | 2019-05-06 12:05 | PT.INTREAT ---
Date of service: 05/06/19 Time of Service: 12:06 PT Notes Inpatient Physical Therapy Treatment Note [facility] Date: 05/06/19 SUBJECTIVE: Lester reports that he was up to the toilet about eight times throughout the night. He reports that he walked there most of the time, but used the STEDY a few times to transfer to the bathroom. OBJECTIVE: PAIN: Patient c/o L pectoral pain with ther ex BED MOBILITY/TRANSFERS Sit-stand: Min A Stand-sit: CGA GAIT Assistive Device: FWW Weight bearing: WBAT on L Assist: Min A Distance: 15' Deviation: Cueing for FWW mechanics for safety THEREX: Patient completed an UE and LE strengthening program, in a seated position, as per flow sheet. Patient demonstrates significant weakness of L UE with shoulder flexion and abduction. He refuses standing exercises, as well as the addition of resistance to exercises in a.m. ASSESSMENT: Patient tolerated session with complaint of L pectoral pain with ther ex and with c/o increased fatigue. He appears limited in gait distance due to significant blister on L foot and the inability to don appropriate footwear for gait training. PLAN: Continue with PT's POC TREATMENT CODE/TIME: 40 minutes; 24950, 77262 x2
[2019-05-06] MEDS: Acetaminophen 325 MG TAB PO (12:12)
--- NOTE | 2019-05-06 14:05 | W.PM.PROGNOT ---
Date of Service Date of service: 05/06/19 Time of Service: 14:05 Assessment and Plan (1) Sepsis: Current visit: No Status: Acute Secondary to cellulitis - resolved. Continue antibiotics as below. (2) Cellulitis of lower limb: Current visit: Yes Status: Acute With skin wounds as likely portal of entry. Vancomycin discontinued on 05/03, with patient maintained on Cefazolin, currently day #5. However, patient with development of fever on 05/04 afternoon and evening approximately 24 hours post discontinuation of Vancomycin - reinitiated 05/04. Cellulitic changes appear improved today. Monitor temperature, blood cultures, as well inflammatory markers with CRP (currently down to 9, from prior value of 11 and original value of 22). If continuing to improve consider change to oral formulation soon, to include MRSA coverage. May also benefit from additional low dose IV Furosemide for improvement in edema. (3) Shoulder pain, left: Current visit: Yes Status: Acute Chronic shoulder pain, reportedly diagnosed with a torn Rotator Cuff, acutely worsened following a fall at home one week prior to admission. Given worsening pain, worsening mobility, as well as history of metastatic malignancy checked xray to rule out acute injury/pathologic fracture, etc. Xray appears normal. (4) Cellulitis of multiple sites of buttock: Current visit: No Status: Acute Continue antibiotics as above. Also receiving wound care. Mr. Adrian will benefit significantly from Home Health [facility] for wound care. (5) Toxic metabolic encephalopathy: Current visit: No Status: Resolved Acute delirium in setting of sepsis - resolved. (6) Metastatic malignant neoplasm to prostate: Current visit: No Status: Chronic Continue Enzalutamide. Also on monthly Lupron with concurrent weekly Denosumab. Last CT with significant improvement of hilar and mediastinal adenopathy, increased number of sclerotic pelvic and lumbar lesions, and stability of destruction of the left sacrum. (7) Hypertension: Current visit: No Status: Chronic Currently on CCB and BB, with TEDDY-I restarted given improved blood pressures and resolution of AWILDA. (8) DVT prophylaxis: Current visit: No Status: Acute Change SC Heparin to Enoxaparin. Subjective Interval history since last seen: 78 year old man with a prior history significant for radiation induced skin breakdown, as well as Lower Extremity wounds, admitted from [facility] Emergency Department on 05/01 with a diagnosis of Cellulitis and Altered Mental Status. Mr. Adrian has a past Medical History significant for Metastatic Prostate Ca for which he has undergone XRT, TBI, HTN, dyslipidemia, chronic pain on opiate therapy, and baseline memory loss. The patient presented to the ED with reported somnolence and confusion, and found to have cellulitis of his buttocks surrounding his decubitus ulcers and LLE. His altered mental status was attributed to acute delirium in the setting of infection. The patient's spouse reported that he had fallen in the shower approximately 1 week prior, without significant sequale, but found him somnolent and altered early in the morning of admission. He was referred for admission for further evaluation and treatment. This morning Mr. Adrian reports feeling improved overall, with decreased swelling and erythema of his LLE. Although he has been afebrile following reinitiation of Vancomycin, he had a one time temperature of 37.9 this afternoon. He has been complaining of acutely worsening Left shoulder pain following his fall a week prior to admission, in joint previously effected by apparent RC tear, with confirmed limited mobility by PT - X-ray confirms lack of pathology. His lomeli remains in place. No overnight events reported. Exam Narrative Exam Narrative: General: Patient appears comfortable, AAOX3, NAD Neck: Supple CV: Regular, nontachycardic, S1S2, No rubs, murmurs, or gallops. Pulmonary: Clear to auscultation bilaterally, no wheezing, or rhonchi - mild crackles left base Abdomen: + Bowel Sounds, soft, nontender, nondistended Vascular: B/l lower extremity edema, worsening and 1+ on LLE, 3+ on RLE. Skin: Erythematous changes on RLE improved, wounds dressed. Prior exam of Decubitus Ulcer with mild surrounding Erythema, reportedly improved. Psych: Normal mood and affect. Objective Objective Clinical Data: Abnormal lab results 05/06/19 05/06/19 Range/Units 07:05 07:05 RBC 3.27 L (4.50-6.00) m/cumm Hgb 10.8 L (13.5-17.5) g/dL Hct 33.8 L (40.0-50.0) % MCV 103.4 H (80-95) fL Absolute Lymphocytes 0.72 L (1.2-3.4) k/cumm Chloride 109 H (98-107) mmol/L Glucose 106 H (70-100) mg/dL Calcium 8.3 L (8.5-10.1) mg/dL C-Reactive Protein 9.39 H (0.0-0.3) mg/dL Vital Signs Temperature 37.9 C H 05/06/19 13:34 Temperature Source Tympanic 05/06/19 13:34 Pulse 78 05/06/19 13:34 Pulse Rhythm Regular 05/06/19 00:25 Pulse 77 05/01/19 16:10 Respiratory Rate 20 05/06/19 13:34 Respiratory Effort 05/06/19 00:25 Respiratory Depth Normal 05/06/19 00:25 Respiratory Pattern Normal 05/06/19 00:25 Blood Pressure 164/67 H 05/06/19 13:34 Blood Pressure Mean 78 05/01/19 16:01 Blood Pressure Position Supine 05/01/19 12:33 Pulse Oximetry 95 05/06/19 13:34 Oxygen Delivery Method Room Air 05/06/19 13:34 Oxygen Flow Rate 0 05/06/19 13:34 Pain Level 0 05/06/19 13:34 Comment 05/05/19 15:51 Intake & Output 05/05/19 05/06/19 05/06/19 23:59 11:59 23:59 Intake Total 769.5 / 1331.0 940.000 / 1480.000 540 / 1480.000 Output Total 1380 / 1880 450 / 450 Balance -610.5 / -549.0 490.000 / 1030.000 540 / 1030.000 Weight 93.3 kg Intake: IV 529.5 / 851.0 50.000 / 350.000 300 / 350.000 Oral 240 / 480 890 / 1130 240 / 1130 Output: Urine 1380 / 1880 450 / 450 Other: Urine Color Pale Yellow Yellow Urine Appearance Cloudy Clear Stool Size Smear Stool Characteristics Brown Laboratory Results WBC 5.95 k/cumm (4.4-10.8) 05/06/19 07:05 RBC 3.27 m/cumm (4.50-6.00) L 05/06/19 07:05 Hgb 10.8 g/dL (13.5-17.5) L 05/06/19 07:05 Hct 33.8 % (40.0-50.0) L 05/06/19 07:05 MCV 103.4 fL (80-95) H 05/06/19 07:05 MCH 33.0 pg (27.0-33.0) 05/06/19 07:05 MCHC 32.0 g/dL (32.0-36.0) 05/06/19 07:05 RDW 14.0 % (11.8-14.1) 05/06/19 07:05 Plt Count 310 x1000/uL (130-400) 05/06/19 07:05 MPV 8.9 fL (8.0-11.0) 05/06/19 07:05 Immature Gran % 0.3 05/06/19 07:05 Neutrophils % 70.7 05/06/19 07:05 Lymphocytes % 12.1 05/06/19 07:05 Monocytes % 11.4 05/06/19 07:05 Eosinophils % 5.2 05/06/19 07:05 Basophils % 0.3 05/06/19 07:05 Absolute Neutrophils 4.20 k/cumm (1.2-6.7) 05/06/19 07:05 Absolute Lymphocytes 0.72 k/cumm (1.2-3.4) L 05/06/19 07:05 Absolute Monocytes 0.68 k/cumm (0.11-0.7) 05/06/19 07:05 Absolute Eosinophils 0.31 k/cumm (0.0-0.7) 05/06/19 07:05 Absolute Basophils 0.02 k/cumm (0.0-0.2) 05/06/19 07:05 PT 10.1 sec (9.3-11.0) 05/01/19 12:51 INR 1.0 (0.9-1.1) 05/01/19 12:51 APTT 25.0 sec (21.0-31.4) 05/01/19 12:51 Sample Site Right radial 05/01/19 19:12 pCO2 49 mmHg (34-47) H 05/01/19 19:12 pO2 98 mmHg (83-108) 05/01/19 19:12 O2 Saturation 97 % (94-98) 05/01/19 19:12 ABG pH 7.40 (7.35-7.45) 05/01/19 19:12 ABG HCO3 30 mmol/L (22-28) H 05/01/19 19:12 ABG Total CO2 27 mmol/L (22-29) 05/01/19 19:12 ABG Base Excess 4.9 mmol/L (-3-3) H 05/01/19 19:12 VBG pH 7.34 (7.32-7.43) 05/01/19 12:51 VBG pCO2 59 mm/Hg (34-47) H 05/01/19 12:51 VBG pO2 27 mm/Hg (28-44) L 05/01/19 12:51 VBG HCO3 32 mmol/L (22-28) H 05/01/19 12:51 VBG Total CO2 29 mmol/L (22-29) 05/01/19 12:51 VBG O2 Saturation 45 % (70-80) L 05/01/19 12:51 VBG Base Excess 5.9 mmol/L (-3-3) H 05/01/19 12:51 Oxygen Liter Flow 2 L 05/01/19 19:12 Sodium 144 mmol/L (136-145) 05/06/19 07:05 Potassium 3.8 mmol/L (3.5-5.1) 05/06/19 07:05 Chloride 109 mmol/L (98-107) H 05/06/19 07:05 Carbon Dioxide 30.2 mmol/L (21.0-32.0) 05/06/19 07:05 Anion Gap 4.8 mmol/L (3-11) 05/06/19 07:05 BUN 11 mg/dL (7-18) 05/06/19 07:05 Creatinine 0.76 mg/dL (0.70-1.30) 05/06/19 07:05 Estimated GFR/1.73 m2 >= 60.00 (mL/min/1.73m2) 05/06/19 07:05 Glucose 106 mg/dL (70-100) H 05/06/19 07:05 Lactate 1.0 mmol/l (0.6-1.4) 05/01/19 20:17 Calcium 8.3 mg/dL (8.5-10.1) L 05/06/19 07:05 Magnesium 2.3 mg/dL (1.8-2.4) 05/06/19 07:05 Total Bilirubin 0.8 mg/dL (0.2-1.0) 05/01/19 12:51 AST 24 U/L (15-37) 05/01/19 12:51 ALT 23 U/L (12-78) 05/01/19 12:51 Alkaline Phosphatase 81 U/L (46-116) 05/01/19 12:51 Ammonia < 10 umol/L (11-32) L 05/01/19 12:51 Troponin I < 0.05 ng/mL (0.00-0.06) 05/01/19 12:51 C-Reactive Protein 9.39 mg/dL (0.0-0.3) H 05/06/19 07:05 NT-Pro-B Natriuret Pep 1606 pg/mL (-299) H 05/01/19 12:51 Total Protein 7.0 g/dL (6.4-8.2) 05/01/19 12:51 Albumin 3.1 g/dL (3.4-5.0) L 05/01/19 12:51 Vitamin B12 469 pg/mL (193-986) 05/03/19 07:15 Folate 18.2 ng/mL (8.6-20.0) 05/03/19 07:15 Procalcitonin 1.9 ng/mL 05/04/19 06:30 TSH 0.82 uIU/mL (0.358-3.74) 05/01/19 12:51 Urine Color Yellow (Yellow) 05/01/19 14:55 Urine Clarity Clear (Clear) 05/01/19 14:55 Urine pH 5.5 (5-8) 05/01/19 14:55 Ur Specific [place] 1.020 (1.005-1.025) 05/01/19 14:55 Urine Protein Trace mg/dL (Negative) H 05/01/19 14:55 Urine Ketones Negative mg/dL (Negative) 05/01/19 14:55 Urine Blood Trace-intact (Negative) H 05/01/19 14:55 Urine Nitrite Negative (Negative) 05/01/19 14:55 Urine Bilirubin Negative (Negative) 05/01/19 14:55 Urine Urobilinogen 0.2 EU/dL (Up TO 0.2) 05/01/19 14:55 Ur Leukocyte Esterase Negative (Negative) 05/01/19 14:55 Urine RBC 10-20 (0-2) H 05/01/19 14:55 Urine WBC 3-5 HPF (0-5) 05/01/19 14:55 Ur Epithelial Cells Few HPF (Negative) 05/01/19 14:55 Urine Crystals Negative HPF (Negative) 05/01/19 14:55 Urine Bacteria Few HPF (Negative) 05/01/19 14:55 Urine Casts 0-2 hyaline LPF (Negative) 05/01/19 14:55 Urine Mucus Moderate (Negative) 05/01/19 14:55 Ur Culture Indicated? C&s done as ordered 05/01/19 14:55 Urine Glucose Negative mg/dL (Negative) 05/01/19 14:55 Vancomycin Trough 16.1 ug/mL (10.0-20.0) 05/06/19 07:05 A.phagocytophil DNA PCR Negative (Negative) 05/03/19 07:15 B. divergens/MO-1 PCR Negative (Negative) 05/03/19 07:15 Babesia duncani (PCR) Negative (Negative) 05/03/19 07:15 Babesia microti DNA PCR Negative (Negative) 05/03/19 07:15 Borrelia (PCR) Negative (Negative) 05/03/19 07:15 Lyme Disease Antibody Negative 05/03/19 07:15 E.chaffeensis DNA (PCR) Negative (Negative) 05/03/19 07:15 E.ewingii/canis DNA PCR Negative (Negative) 05/03/19 07:15 E. muris-like DNA (PCR) Negative (Negative) 05/03/19 07:15
--- NOTE | 2019-05-06 15:02 | PT.INNT ---
Date of service: 05/06/19 Time of Service: 15:02 PT Notes 05/06/19 Patient refused afternoon PT session stating that he is very fatigued this afternoon and would just like to rest. Will attempt to resume PT services tomorrow morning.
[2019-05-07] MEDS: Normal Saline Flush 10 ML SYR IVP (01:32)
[2019-05-07] MEDS: Normal Saline 500 ML 30 ML IV (01:32)
[2019-05-07 04:13] VITALS: BP 162/70; PULSE 73; RESP 16; TEMP 37.1; O2SAT 95
[2019-05-07 07:15] VITALS: BP 144/66; PULSE 68; RESP 18; TEMP 37; O2SAT 95
[2019-05-07 07:24] LABS: Abs Immature Grans 0.03 k/cumm (0.0-0.09); Absolute Basophil Count 0.02 k/cumm (0.0-0.2); Absolute Eosinophil Count 0.29 k/cumm (0.0-0.7); Absolute Lymphocyte Count 0.77 k/cumm (1.2-3.4); Absolute Monocyte Count 0.72 k/cumm (0.11-0.7); Absolute Neutrophil Count 3.88 k/cumm (1.2-6.7); Basophils % 0.4; Eosinophils % 5.1; HCT 33.3 % (40.0-50.0); HGB 10.5 g/dL (13.5-17.5); Immature Grans % 0.5; Lymphocytes % 13.5; Mean Corp. HGB Concentration 31.5 g/dL (32.0-36.0); Mean Corpuscular Hemoglobin 32.8 pg (27.0-33.0); Mean Corpuscular Volume 104.1 fL (80-95); Mean Platelet Volume 9.1 fL (8.0-11.0); Monocytes % 12.6; Neutrophils % 67.9; Platelet Count 315 x1000/uL (130-400); RBC Distribution Width 13.9 % (11.8-14.1); White Blood Cell Count 5.71 k/cumm (4.4-10.8)
[2019-05-07 07:44] LABS: Anion Gap 6.7 mmol/L (3-11); BUN 12 mg/dL (7-18); CO2 28.3 mmol/L (21.0-32.0); CREATININE 0.74 mg/dL (0.70-1.30); Calcium 8.1 mg/dL (8.5-10.1); Chloride 109 mmol/L (98-107); Glucose 112 mg/dL (70-100); Magnesium 2.1 mg/dL (1.8-2.4); Potassium 4.2 mmol/L (3.5-5.1); Sodium 144 mmol/L (136-145)
[2019-05-07] MEDS: Enoxaparin 40 MG/0.4 ML SYR SC (08:23)
[2019-05-07] MEDS: Gabapentin 300 MG CAP 600 MG PO ×3 (08:24→20:28)
[2019-05-07] MEDS: Cyanocobalamin 500 MCG TAB 1000 MCG PO (08:24)
[2019-05-07] MEDS: Ascorbic Acid 500 MG TAB 1000 MG PO (08:24)
[2019-05-07] MEDS: Metoprolol CR 100 MG TABCR PO (08:24)
[2019-05-07] MEDS: amLODIPine 5 MG TAB PO (08:24)
[2019-05-07] MEDS: Furosemide 20 MG/2 ML VIAL IVP (08:24)
[2019-05-07] MEDS: oxyCODONE 15 MG TAB 7.5 MG PO (08:25)
[2019-05-07] MEDS: Multivitamin TAB 1 TAB PO (08:25)
[2019-05-07] MEDS: Lisinopril 5 MG TAB PO (08:25)
--- NOTE | 2019-05-07 09:39 | CMPROGNOTE_ITS ---
- If Service Date Differs Date of service: 05/07/19 Time of Service: 09:39 Care Management Progress Note S/O: Lester was sitting up in a chair conversing with his daughter Akanksha when CM visited. He was pleasant and smiling and readily engaged in conversation. Anjali states he continues to feel much better and is looking forward to discharge, probably tomorrow. He again reiterated that he would like his lomeli removed before discharge. Dr. Toscano was making rounds at the time and agreed to dis continue the order for the lomeli. A:Lester is a 78 year old male admitted sepsis, cellulitis. P: Lester will be discharged home when medically ready anticipate with additional support services through home health for nursing, PT. OT and wound care.Lester does have a PT consult to eval and continue to treat. Wound consult in place. CM to continue to provide support discharge planning and disposition.
--- NOTE | 2019-05-07 09:42 | OT.INTREAT ---
Date of service: 05/07/19 Time of Service: 08:15 Occupational Therapy Notes Occupational Therapy Inpatient Treatment Note Date: 05/07/19 PRECAUTIONS: Contact, Fall SUBJECTIVE: Pt was sitting in bed when OT arrived. He notes that he is feeling better today. OBJECTIVE: Therapeutic Activities [id number]: OT educated and trained pt in use of adaptive equipment to include sock aid, dressing stick, and clipman. Pt verbalizes understanding and this will reduce the need to perform any extra bending while performing his ADLs. Pt was provided AE and written/illustrated instructions. ASSESSMENT/PLAN: OT will plan to progress pt to (I) in ADLs. His (L) shoulder is limiting to his ADL routines even more than it was at baseline. Pt and OT discuss that pt will need (A) with ADLs at home in order to complete them. Pt mentions that his won't be able to do all the ADLs for him. OT will continue to progress pt with adaptive equipment and (I) in his overall functional activities. TREATMENT CODES/TIME: [id number], 25 minutes (08:15) Zonia García OTR/[facility]
--- NOTE | 2019-05-07 09:47 | OTTR_ITS ---
Date of service: 05/07/19 Time of Service: 08:15 Occupational Therapy Notes Occupational Therapy Inpatient Treatment Note Date: 05/07/19 PRECAUTIONS: Contact, Fall SUBJECTIVE: Pt was sitting in bed when OT arrived. He notes that he is feeling better today. OBJECTIVE: Therapeutic Activities [id number]: OT educated and trained pt in use of adaptive equipment to include sock aid, dressing stick, and furniture finisher apprentice. Pt verbalizes understanding and this will reduce the need to perform any extra bending while performing his ADLs. Pt was provided AE and written/illustrated instructions. ASSESSMENT/PLAN: OT will plan to progress pt to (I) in ADLs. His (L) shoulder is limiting to his ADL routines even more than it was at baseline. Pt and OT discuss that pt will need (A) with ADLs at home in order to complete them. Pt mentions that his won't be able to do all the ADLs for him. OT will continue to progress pt with adaptive equipment and (I) in his overall functional activities. TREATMENT CODES/TIME: [id number], 25 minutes (08:15) Zonia García OTR/[facility]
[2019-05-07 11:20] VITALS: BP 144/66; PULSE 64; RESP 18; TEMP 36.8; O2SAT 96
--- NOTE | 2019-05-07 12:32 | PT.INTREAT ---
Date of service: 05/07/19 Time of Service: 12:32 PT Notes Inpatient Physical Therapy Treatment Note [facility] Date: 05/07/2019 PRECAUTIONS: Fall SUBJECTIVE: Lester states that his left foot feels a little better today, that is not as painful as it was yesterday with weight bearing. OBJECTIVE: PAIN: Patient complained of left foot pain with weight bearing, only when asked. BED MOBILITY/TRANSFERS Supine-sit: SBA with HOB at 60 degrees Sit-stand: CGA Stand-sit: CGA GAIT Assistive Device: FWW Weight bearing: WBAT L Assist: CGA Distance: 15' Deviation: Improved FWW mechanics THEREX: In a.m., patient completed a resisted upper extremity and lower extremity strengthening program, in a seated position, as per flow sheet. Yellow Thera-Band was issued and used for all upper and lower extremity strengthening exercises. In p.m., patient completed a progressed, resisted upper extremity and lower extremity strengthening program, in a seated position, as per flow sheet. Patient was issued green Thera-Band for lower extremity strengthening exercises as well as 3 pound hand-held weights for upper extremity strengthening exercises. ASSESSMENT: Patient tolerated session with complaints of increased fatigue with activity. Patient demonstrates improved FWW mechanics with gait training. Patient was able to tolerate a progression in ther ex today, tolerating additional resistance, well. Patient would benefit from continued gait and transfer training as well as strengthening for improved mobility and improved activity tolerance. PLAN: Continue with PTs POC TREATMENT CODE/TIME: Session 1: 35 minutes; 11180, [id number] Session 2: 25 minutes; [id number] x2
--- NOTE | 2019-05-07 12:36 | PTTR_ITS ---
Date of service: 05/07/19 Time of Service: 12:32 PT Notes Inpatient Physical Therapy Treatment Note [facility] Date: 05/07/2019 PRECAUTIONS: Fall SUBJECTIVE: Lester states that his left foot feels a little better today, that is not as painful as it was yesterday with weight bearing. OBJECTIVE: PAIN: Patient complained of left foot pain with weight bearing, only when asked. BED MOBILITY/TRANSFERS Supine-sit: SBA with HOB at 60 degrees Sit-stand: CGA Stand-sit: CGA GAIT Assistive Device: FWW Weight bearing: WBAT L Assist: CGA Distance: 15' Deviation: Improved FWW mechanics THEREX: In a.m., patient completed a resisted upper extremity and lower extremity strengthening program, in a seated position, as per flow sheet. Yellow Thera-Band was issued and used for all upper and lower extremity strengthening exercises. In p.m., patient completed a progressed, resisted uppe r extremity and lower extremity strengthening program, in a seated position, as per flow sheet. Patient was issued green Thera-Band for lower extremity strengthening exercises as well as 3 pound hand-held weights for upper extremity strengthening exercises. ASSESSMENT: Patient tolerated session with complaints of increased fatigue with activity. Patient demonstrates improved FWW mechanics with gait training. Patient was able to tolerate a progression in ther ex today, tolerating additional resistance, well. Patient would benefit from continued gait and transfer training as well as strengthening for improved mobility and improved activity tolerance. PLAN: Continue with PTs POC TREATMENT CODE/TIME: Session 1: 35 minutes; 59962, [id number] Session 2: 25 minutes; 70805 x2
[2019-05-07] MEDS: Doxycycline Hyclate 100 MG CAP PO ×2 (13:24→23:19)
[2019-05-07] MEDS: Cephalexin 250 MG CAP 750 MG PO ×2 (13:24→20:28)
[2019-05-07] MEDS: Acetaminophen 325 MG TAB PO (13:24)
[2019-05-07 15:30] VITALS: BP 146/74; PULSE 64; RESP 17; TEMP 37; O2SAT 97
--- NOTE | 2019-05-07 15:55 | W.PM.PROGNOT ---
Date of Service Date of service: 05/07/19 Time of Service: 15:55 Assessment and Plan (1) Sepsis: Current visit: No Status: Acute Secondary to cellulitis - resolved. Continue antibiotics as below. (2) Cellulitis of lower limb: Current visit: Yes Status: Acute With skin wounds as likely portal of entry. Vancomycin discontinued on 05/03, with patient maintained on Cefazolin for 5 days. However, patient with development of fever on 05/04 afternoon and evening approximately 24 hours post discontinuation of Vancomycin - reinitiated 05/04. Cellulitic changes improved quickly, and patient remains afebrile. Inflammatory markers with CRP (currently down to 9, from prior value of 11 and original value of 22). Will change to oral formulation today with Cephalexin and Doxy, and monitor closely. Repeat CRP in the morning. Has benefited from additional low dose IV Furosemide for improvement in edema. (3) Shoulder pain, left: Current visit: Yes Status: Acute Chronic shoulder pain, reportedly diagnosed with a torn Rotator Cuff, acutely worsened following a fall at home one week prior to admission. Given worsening pain, worsening mobility, as well as history of metastatic malignancy checked xray to rule out acute injury/pathologic fracture, etc. Xray appears normal. Continue PT. (4) Cellulitis of multiple sites of buttock: Current visit: No Status: Acute Continue antibiotics as above. Also receiving wound care. Mr. Adrian will benefit significantly from Home Health [facility] for wound care. (5) Toxic metabolic encephalopathy: Current visit: No Status: Resolved Acute delirium in setting of sepsis - resolved. (6) Metastatic malignant neoplasm to prostate: Current visit: No Status: Chronic Continue Enzalutamide. Also on monthly Lupron with concurrent weekly Denosumab. Last CT with significant improvement of hilar and mediastinal adenopathy, increased number of sclerotic pelvic and lumbar lesions, and stability of destruction of the left sacrum. Lomeli has remained in place. Will discontinue today. (7) Hypertension: Current visit: No Status: Chronic Currently on CCB and BB, with TEDDY-I restarted given improved blood pressures and resolution of AWILDA. (8) DVT prophylaxis: Current visit: No Status: Acute Changed SC Heparin to Enoxaparin. Subjective Interval history since last seen: 78 year old man with a prior history significant for radiation induced skin breakdown, as well as Lower Extremity wounds, admitted from [facility] Emergency Department on 05/01 with a diagnosis of Cellulitis and Altered Mental Status. Mr. Adrian has a past Medical History significant for Metastatic Prostate Ca for which he has undergone XRT, TBI, HTN, dyslipidemia, chronic pain on opiate therapy, and baseline memory loss. The patient presented to the ED with reported somnolence and confusion, and found to have cellulitis of his buttocks surrounding his decubitus ulcers and LLE. His altered mental status was attributed to acute delirium in the setting of infection. The patient's spouse reported that he had fallen in the shower approximately 1 week prior, without significant sequale, but found him somnolent and altered early in the morning of admission. He was referred for admission for further evaluation and treatment. This morning Mr. Adrian reports feeling vastly improved overall, with continued decreased swelling and erythema of his LLE. His lomeli remains in place. No overnight events reported. Remains afebrile. Exam Narrative Exam Narrative: General: Patient appears comfortable, AAOX3, NAD Neck: Supple CV: Regular, nontachycardic, S1S2, No rubs, murmurs, or gallops. Pulmonary: Clear to auscultation bilaterally, no wheezing, or rhonchi - mild crackles left base Abdomen: + Bowel Sounds, soft, nontender, nondistended Vascular: B/l lower extremity edema, improved, now mildon LLE, 1-2+ on RLE. Skin: Erythematous changes on LLE again improved, wounds dressed. Prior exam of Decubitus Ulcer with mild surrounding Erythema, reportedly improved. Psych: Normal mood and affect. Objective Objective Clinical Data: Abnormal lab results 05/07/19 05/07/19 Range/Units 06:50 06:50 RBC 3.20 L (4.50-6.00) m/cumm Hgb 10.5 L (13.5-17.5) g/dL Hct 33.3 L (40.0-50.0) % MCV 104.1 H (80-95) fL MCHC 31.5 L (32.0-36.0) g/dL Absolute Lymphocytes 0.77 L (1.2-3.4) k/cumm Absolute Monocytes 0.72 H (0.11-0.7) k/cumm Chloride 109 H (98-107) mmol/L Glucose 112 H (70-100) mg/dL Calcium 8.1 L (8.5-10.1) mg/dL Vital Signs Temperature 37 C 05/07/19 15:30 Temperature Source Tympanic 05/07/19 15:30 Pulse 64 05/07/19 15:30 Pulse Rhythm Regular 05/07/19 08:30 Pulse 77 05/01/19 16:10 Respiratory Rate 17 05/07/19 15:30 Respiratory Effort 05/07/19 08:30 Respiratory Depth Normal 05/07/19 08:30 Respiratory Pattern Normal 05/07/19 08:30 Blood Pressure 146/74 H 05/07/19 15:30 Blood Pressure Mean 78 05/01/19 16:01 Blood Pressure Position Supine 05/01/19 12:33 Pulse Oximetry 97 05/07/19 15:30 Oxygen Delivery Method Room Air 05/07/19 15:30 Oxygen Flow Rate 0 05/07/19 15:30 Pain Level 0 05/07/19 15:30 Comment 05/05/19 15:51 Intake & Output 05/06/19 05/07/19 05/07/19 23:59 11:59 23:59 Intake Total 850 / 1790.000 910 / 1200 290 / 1200 Output Total 950 / 1400 1125 / 1675 550 / 1675 Balance -100 / 390.000 -215 / -475 -260 / -475 Weight 92.7 kg Intake: IV 610 / 660.000 70 / 120 50 / 120 Oral 240 / 1130 840 / 1080 240 / 1080 Output: Urine 950 / 1400 1125 / 1675 550 / 1675 Other: Urine Color Light Shira Light Shira Straw Urine Appearance Clear Clear Comment strong odour from the urine Laboratory Results WBC 5.71 k/cumm (4.4-10.8) 05/07/19 06:50 RBC 3.20 m/cumm (4.50-6.00) L 05/07/19 06:50 Hgb 10.5 g/dL (13.5-17.5) L 05/07/19 06:50 Hct 33.3 % (40.0-50.0) L 05/07/19 06:50 MCV 104.1 fL (80-95) H 05/07/19 06:50 MCH 32.8 pg (27.0-33.0) 05/07/19 06:50 MCHC 31.5 g/dL (32.0-36.0) L 05/07/19 06:50 RDW 13.9 % (11.8-14.1) 05/07/19 06:50 Plt Count 315 x1000/uL (130-400) 05/07/19 06:50 MPV 9.1 fL (8.0-11.0) 05/07/19 06:50 Immature Gran % 0.5 05/07/19 06:50 Neutrophils % 67.9 05/07/19 06:50 Lymphocytes % 13.5 05/07/19 06:50 Monocytes % 12.6 05/07/19 06:50 Eosinophils % 5.1 05/07/19 06:50 Basophils % 0.4 05/07/19 06:50 Absolute Neutrophils 3.88 k/cumm (1.2-6.7) 05/07/19 06:50 Absolute Lymphocytes 0.77 k/cumm (1.2-3.4) L 05/07/19 06:50 Absolute Monocytes 0.72 k/cumm (0.11-0.7) H 05/07/19 06:50 Absolute Eosinophils 0.29 k/cumm (0.0-0.7) 05/07/19 06:50 Absolute Basophils 0.02 k/cumm (0.0-0.2) 05/07/19 06:50 PT 10.1 sec (9.3-11.0) 05/01/19 12:51 INR 1.0 (0.9-1.1) 05/01/19 12:51 APTT 25.0 sec (21.0-31.4) 05/01/19 12:51 Sample Site Right radial 05/01/19 19:12 pCO2 49 mmHg (34-47) H 05/01/19 19:12 pO2 98 mmHg (83-108) 05/01/19 19:12 O2 Saturation 97 % (94-98) 05/01/19 19:12 ABG pH 7.40 (7.35-7.45) 05/01/19 19:12 ABG HCO3 30 mmol/L (22-28) H 05/01/19 19:12 ABG Total CO2 27 mmol/L (22-29) 05/01/19 19:12 ABG Base Excess 4.9 mmol/L (-3-3) H 05/01/19 19:12 VBG pH 7.34 (7.32-7.43) 05/01/19 12:51 VBG pCO2 59 mm/Hg (34-47) H 05/01/19 12:51 VBG pO2 27 mm/Hg (28-44) L 05/01/19 12:51 VBG HCO3 32 mmol/L (22-28) H 05/01/19 12:51 VBG Total CO2 29 mmol/L (22-29) 05/01/19 12:51 VBG O2 Saturation 45 % (70-80) L 05/01/19 12:51 VBG Base Excess 5.9 mmol/L (-3-3) H 05/01/19 12:51 Oxygen Liter Flow 2 L 05/01/19 19:12 Sodium 144 mmol/L (136-145) 05/07/19 06:50 Potassium 4.2 mmol/L (3.5-5.1) 05/07/19 06:50 Chloride 109 mmol/L (98-107) H 05/07/19 06:50 Carbon Dioxide 28.3 mmol/L (21.0-32.0) 05/07/19 06:50 Anion Gap 6.7 mmol/L (3-11) 05/07/19 06:50 BUN 12 mg/dL (7-18) 05/07/19 06:50 Creatinine 0.74 mg/dL (0.70-1.30) 05/07/19 06:50 Estimated GFR/1.73 m2 >= 60.00 (mL/min/1.73m2) 05/07/19 06:50 Glucose 112 mg/dL (70-100) H 05/07/19 06:50 Lactate 1.0 mmol/l (0.6-1.4) 05/01/19 20:17 Calcium 8.1 mg/dL (8.5-10.1) L 05/07/19 06:50 Magnesium 2.1 mg/dL (1.8-2.4) 05/07/19 06:50 Total Bilirubin 0.8 mg/dL (0.2-1.0) 05/01/19 12:51 AST 24 U/L (15-37) 05/01/19 12:51 ALT 23 U/L (12-78) 05/01/19 12:51 Alkaline Phosphatase 81 U/L (46-116) 05/01/19 12:51 Ammonia < 10 umol/L (11-32) L 05/01/19 12:51 Troponin I < 0.05 ng/mL (0.00-0.06) 05/01/19 12:51 C-Reactive Protein 9.39 mg/dL (0.0-0.3) H 05/06/19 07:05 NT-Pro-B Natriuret Pep 1606 pg/mL (-299) H 05/01/19 12:51 Total Protein 7.0 g/dL (6.4-8.2) 05/01/19 12:51 Albumin 3.1 g/dL (3.4-5.0) L 05/01/19 12:51 Vitamin B12 469 pg/mL (193-986) 05/03/19 07:15 Folate 18.2 ng/mL (8.6-20.0) 05/03/19 07:15 Procalcitonin 1.9 ng/mL 05/04/19 06:30 TSH 0.82 uIU/mL (0.358-3.74) 05/01/19 12:51 Urine Color Yellow (Yellow) 05/01/19 14:55 Urine Clarity Clear (Clear) 05/01/19 14:55 Urine pH 5.5 (5-8) 05/01/19 14:55 Ur Specific [place] 1.020 (1.005-1.025) 05/01/19 14:55 Urine Protein Trace mg/dL (Negative) H 05/01/19 14:55 Urine Ketones Negative mg/dL (Negative) 05/01/19 14:55 Urine Blood Trace-intact (Negative) H 05/01/19 14:55 Urine Nitrite Negative (Negative) 05/01/19 14:55 Urine Bilirubin Negative (Negative) 05/01/19 14:55 Urine Urobilinogen 0.2 EU/dL (Up TO 0.2) 05/01/19 14:55 Ur Leukocyte Esterase Negative (Negative) 05/01/19 14:55 Urine RBC 10-20 (0-2) H 05/01/19 14:55 Urine WBC 3-5 HPF (0-5) 05/01/19 14:55 Ur Epithelial Cells Few HPF (Negative) 05/01/19 14:55 Urine Crystals Negative HPF (Negative) 05/01/19 14:55 Urine Bacteria Few HPF (Negative) 05/01/19 14:55 Urine Casts 0-2 hyaline LPF (Negative) 05/01/19 14:55 Urine Mucus Moderate (Negative) 05/01/19 14:55 Ur Culture Indicated? C&s done as ordered 05/01/19 14:55 Urine Glucose Negative mg/dL (Negative) 05/01/19 14:55 Vancomycin Trough 16.1 ug/mL (10.0-20.0) 05/06/19 07:05 A.phagocytophil DNA PCR Negative (Negative) 05/03/19 07:15 B. divergens/MO-1 PCR Negative (Negative) 05/03/19 07:15 Babesia duncani (PCR) Negative (Negative) 05/03/19 07:15 Babesia microti DNA PCR Negative (Negative) 05/03/19 07:15 Borrelia (PCR) Negative (Negative) 05/03/19 07:15 Lyme Disease Antibody Negative 05/03/19 07:15 E.chaffeensis DNA (PCR) Negative (Negative) 05/03/19 07:15 E.ewingii/canis DNA PCR Negative (Negative) 05/03/19 07:15 E. muris-like DNA (PCR) Negative (Negative) 05/03/19 07:15
[2019-05-07 19:46] VITALS: BP 151/66; PULSE 67; RESP 20; TEMP 36.8; O2SAT 96
[2019-05-07] MEDS: Nystatin POWDER 60 GM JAR TP (20:27)
[2019-05-07 23:21] VITALS: BP 151/70; PULSE 79; RESP 16; TEMP 37.4; O2SAT 94
[2019-05-08 03:24] VITALS: BP 158/88; PULSE 74; RESP 18; TEMP 37.2; O2SAT 93
[2019-05-08 07:10] VITALS: BP 175/83; PULSE 74; RESP 18; TEMP 37.1; O2SAT 95
[2019-05-08 07:12] LABS: Abs Immature Grans 0.02 k/cumm (0.0-0.09); Absolute Basophil Count 0.02 k/cumm (0.0-0.2); Absolute Eosinophil Count 0.26 k/cumm (0.0-0.7); Absolute Lymphocyte Count 0.69 k/cumm (1.2-3.4); Absolute Monocyte Count 0.56 k/cumm (0.11-0.7); Absolute Neutrophil Count 3.78 k/cumm (1.2-6.7); Basophils % 0.4; Eosinophils % 4.9; HCT 34.4 % (40.0-50.0); Immature Grans % 0.4; Lymphocytes % 12.9; Mean Corpuscular Hemoglobin 33.2 pg (27.0-33.0); Mean Corpuscular Volume 103.9 fL (80-95); Mean Platelet Volume 8.8 fL (8.0-11.0); Monocytes % 10.5; Neutrophils % 70.9; Platelet Count 391 x1000/uL (130-400); RBC 3.31 m/cumm (4.50-6.00); RBC Distribution Width 13.8 % (11.8-14.1); White Blood Cell Count 5.33 k/cumm (4.4-10.8)
[2019-05-08 07:28] LABS: BUN 15 mg/dL (7-18); C-Reactive Protein 6.64 mg/dL (0.0-0.3); CREATININE 0.97 mg/dL (0.70-1.30); Calcium 8.6 mg/dL (8.5-10.1); Chloride 107 mmol/L (98-107); Glucose 117 mg/dL (70-100); Magnesium 2.1 mg/dL (1.8-2.4); Potassium 4.4 mmol/L (3.5-5.1); Sodium 143 mmol/L (136-145)
[2019-05-08] MEDS: Gabapentin 300 MG CAP 600 MG PO ×2 (08:03→13:46)
[2019-05-08] MEDS: Ascorbic Acid 500 MG TAB 1000 MG PO (08:03)
[2019-05-08] MEDS: Lisinopril 5 MG TAB PO (08:03)
[2019-05-08] MEDS: Cephalexin 250 MG CAP 750 MG PO ×2 (08:03→13:46)
[2019-05-08] MEDS: Multivitamin TAB 1 TAB PO (08:03)
[2019-05-08] MEDS: Metoprolol CR 100 MG TABCR PO (08:04)
[2019-05-08] MEDS: amLODIPine 5 MG TAB PO (08:04)
[2019-05-08] MEDS: Furosemide 20 MG/2 ML VIAL IVP (08:04)
[2019-05-08] MEDS: Cyanocobalamin 500 MCG TAB 1000 MCG PO (08:04)
[2019-05-08] MEDS: oxyCODONE 15 MG TAB 7.5 MG PO (08:04)
[2019-05-08] MEDS: Acetaminophen 325 MG TAB PO (08:04)
[2019-05-08] MEDS: Normal Saline Flush 10 ML SYR IVP (08:05)
[2019-05-08] MEDS: Enoxaparin 40 MG/0.4 ML SYR SC (08:05)
[2019-05-08] MEDS: Nystatin POWDER 60 GM JAR TP (08:06)
[2019-05-08] MEDS: Fluticasone NASAL SPRAY 16 GM BTL NS (08:06)
--- NOTE | 2019-05-08 09:29 | OT.INTREAT ---
Date of service: 05/08/19 Time of Service: 09:00 Occupational Therapy Notes Occupational Therapy Inpatient Treatment Note Date: 05/08/19 PRECAUTIONS: Fall, Standard SUBJECTIVE: Pt was sitting in chair when OT arrived. He reports that he didn't sleep well last night and that they used the Steady lift for functional mobility throughout the night. OBJECTIVE: PAIN:c/o pain in shoulder which seems to be relatively chronic. FUNCTIONAL MOBILITY Sit-stand: CGAx1 Stand-sit: CGAx1 Bathroom-Chair: CGAx1, FWW Chair-Bathroom: CGAx1, FWW Therapeutic Activities [id number]: Pt performed use of the sock and dressing stick to perform LE dressing. He required min vc and min (A) throughout but was able to perform with good technique. Pt was able to perform this with good energy conservation techniques and decreased stress during his dressing routine. Toileting- Pt was able to ambulate to the toilet with CGA he required max (A) for toileting hygiene whicj was performed prior to OT session with nursing. ASSESSMENT/PLAN: Pt is requiring increased (A) in his ADL routines. He has poor functional mobility d/t his gait pattern which is his baseline level of function. He is requiring increased (I) in his ADL routines. OT does feel that pt will need (A) in his home or will need short term stay at SNF to increase his functional (I) in his ADL routines. Pts verbalized that she is not going to be able to perform max (A) for pt's ADLs at home. TREATMENT CODES/TIME: 18393, 15 minutes (09:00) [facility]
--- NOTE | 2019-05-08 09:33 | OTTR_ITS ---
Date of service: 05/08/19 Time of Service: 09:00 Occupational Therapy Notes Occupational Therapy Inpatient Treatment Note Date: 05/08/19 PRECAUTIONS: Fall, Standard SUBJECTIVE: Pt was sitting in chair when OT arrived. He reports that he didn't sleep well last night and that they used the Steady lift for functional mobility throughout the night. OBJECTIVE: PAIN:c/o pain in shoulder which seems to be relatively chronic. FUNCTIONAL MOBILITY Sit-stand: CGAx1 Stand-sit: CGAx1 Bathroom-Chair: CGAx1, FWW Chair-Bathroom: CGAx1, FWW Therapeutic Activities [id number]: Pt performed use of the sock and dressing stick to perform LE dressing. He required min vc and min (A) throughout but was able to perform with good technique. Pt was able to perform this with good energy conservation techniques and decreased stress during his dressing routine. Toileting- Pt was able to ambulate to the toilet with CGA he required max (A) for toileting hygiene whicj was performed prior to OT session with nursing. ASSESSMENT/PLAN: Pt is requiring increased (A) in his ADL routines. He has poor functional mobility d/t his gait pattern which is his baseline level of function. He is requiring increased (I) in his ADL routines. OT does feel that pt will need (A) in his home or will need short term stay at SNF to increase his functional (I) in his ADL routines. Pts verbalized that she is not going to be able to perform max (A) for pt's ADLs at home. TREATMENT CODES/TIME: 31395, 15 minutes (09:00) [facility]
[2019-05-08] MEDS: fentaNYL 75 MCG PATCH TD (11:13)
[2019-05-08] MEDS: Doxycycline Hyclate 100 MG CAP PO (11:13)
[2019-05-08 11:15] VITALS: BP 151/69; PULSE 54; RESP 18; TEMP 36.8; O2SAT 97
--- NOTE | 2019-05-08 11:29 | W.PM.DS.N ---
Date of service: 05/08/19 Time of Service: 11:30 DS: Diagnosis Discharge Diagnosis (1) Sepsis: Status: Acute (2) Cellulitis of lower limb: Status: Acute (3) Shoulder pain, left: Status: Acute (4) Cellulitis of multiple sites of buttock: Status: Acute (5) Toxic metabolic encephalopathy: Status: Resolved Discharge Plan Disposition Patient Disposition: HOME W/HOME HEALTH SERVICE Condition: Stable Discharge Details Reason For Visit: CELLULITIS ASSOCIATED WITH A DECUB ULCER,ENCEPHALO Admit Date/Time: 05/01/19 15:32 Admit Provider: Loly Brown Attending Provider: Loly Brown Primary Care Provider: Tonny Leslie Hospital Course Hospital Course: Chief Complaint: Cellulitis, Altered Mental Status HPI: 78 year old man with a prior history significant for 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 Mr. Adrian has a past Medical History significant for Metastatic Prostate Ca for which he has undergone XRT, TBI, HTN, dyslipidemia, chronic pain on opiate therapy, and baseline memory loss. The patient presented to the ED with reported somnolence and confusion, and found to have cellulitis of his buttocks surrounding his decubitus ulcers and LLE surrounding his leg wounds. His altered mental status was attributed to acute delirium in the setting of infection. The patient's spouse reported that he had fallen in the shower approximately 1 week prior, without significant sequale, but found him somnolent and altered early in the morning of admission. He was referred for admission for further evaluation and treatment. This morning Mr. Adrian reports feeling vastly improved overall, with continued decreased swelling and erythema of his LLE. His lomeli remains in place. No overnight events reported. Remains afebrile. Hospital Course: (1) Sepsis: Secondary to cellulitis - resolved. Continue antibiotics as below. (2) Cellulitis of lower limb: With skin wounds as likely portal of entry. V ancomycin discontinued on 05/03, with patient maintained only on Cefazolin. However, Mr. Adrian had immediate development of fever on the afternoon and evening of 05/04, approximately 24 hours post discontinuation of Vancomycin, which was then reinitiated later that day. Cellulitic changes improved quickly, and patient remains afebrile. Inflammatory markers with CRP continue to improve (currently down to 6, from prior values of 9, 11 and original value of 22). Appears to be tolerating oral antibiotics well which were started yesterday, with continued improvement on Cephalexin and Doxy. Also benefited from additional low dose IV Furosemide for improvement in edema. Plan is for completion of a 14 day total course of antibiotic therapy (today is day #7), with Home Health for nursing and wound care. Mr. Adrian will be continued on his oral Furosemide, and undergo compression wraps as well. (3) Shoulder pain, left: Chronic shoulder pain, reportedly diagnosed with a torn Rotator Cuff, acutely worsened following a fall at home one week prior to admission. Given worsening pain, worsening mobility, as well as history of metastatic malignancy xray obtained to rule out acute injury/pathologic fracture. Xray appears normal. Continue PT. (4) Cellulitis of multiple sites of buttock: Continue antibiotics as above. Also receiving wound care. Mr. Adrian will benefit significantly from Home Health VNA for wound care. (5) Toxic metabolic encephalopathy: Acute delirium in setting of sepsis - resolved. (6) Metastatic malignant neoplasm to prostate: Continue Enzalutamide. Also on monthly Lupron with concurrent weekly Denosumab. Last CT with significant improvement of hilar and mediastinal adenopathy, increased number of sclerotic pelvic and lumbar lesions, and stability of destruction of the left sacrum. (7) Hypertension: Currently on CCB and BB, with TEDDY-I restarted given improved blood pressures and resolution of AWILDA. (8) DVT prophylaxis: Was maintained on chemical prophylaxis throughout his hospital course, initially with Heparin given AWILDA, changed to SC Enoxaparin. (9) Disposition: Discharge home with Home Health for VNA/Wound care, PT and OT. Home Meds and New Rx's Prescriptions: New doxycycline hyclate 100 mg Capsule 100 mg PO Q12H Qty: 14 RF: 0 cephalexin 250 mg Capsule 750 mg PO TID Qty: 21 RF: 0 Continued ascorbic acid (vitamin C) [Vitamin C] 1,000 MG tablet 1,000 mg PO DAILY RF: 0 metoprolol succinate 100 MG tablet extended release 24 hr 100 mg PO DAILY RF: 0 Lupron Depot (4 month) 30 MG syringe kit 30 mg IM .Q4 months RF: 0 furosemide 20 MG tablet 20 mg PO DAILY RF: 0 multivitamin tablet 1 tab PO DAILY RF: 0 amlodipine 5 mg tablet 5 mg PO DAILY RF: 0 betamethasone dipropionate 0.05 % cream 1 applic TP BID PRNRF: 0 fluticasone propionate 50 mcg/actuation spray,suspension 1 spray BRIAN DAILY RF: 0 Xgeva 120 mg/1.7 mL (70 mg/mL) solution 120 mg SC Q4W RF: 0 Xtandi 40 mg capsule 160 mg PO DAILY RF: 0 lisinopril 5 mg tablet 10 mg PO DAILY Qty: 2 RF: 0 gabapentin 300 mg capsule 600 mg PO TID RF: 0 calcium carbonate-vitamin D3 500 mg calcium- 400 unit/5 mL liquid PO DAILY RF: 0 oxycodone 15 mg tablet 7.5 mg PO BID PRNRF: 0 fentanyl 50 mcg/hr patch 72 hour 1 patch TD Q72H RF: 0 Discharge Instructions Instructions: Cellulitis (DC), Cellulitis (GEN) Additional Instructions: Please see your Primary Care Physician within 7 days of discharge (prior to completion of your antibiotics) Stand Alone Forms: Nursing Discharge Form Referrals: Tonny Leslie MD [Primary Care Provider] - Activity:: Per PT/OT Equipment/Supplies:: No Equipment Needed Diet:: Normal Diet Discharge Orders Discharge Orders: Discharge Order (Routine); Ordered 05/08/19 Ordered By: Sawyer Toscano Exam Narrative Exam Narrative: General: Patient appears comfortable, AAOX3, NAD Neck: Supple CV: Regular, nontachycardic, S1S2, No rubs, murmurs, or gallops. Pulmonary: Clear to auscultation bilaterally, no wheezing, or rhonchi - mild crackles left base Abdomen: + Bowel Sounds, soft, nontender, nondistended Vascular: B/l lower extremity edema, significantly improved, now mild on LLE, 1-2+ on RLE. Skin: Erythematous changes on LLE again improved, now with significant improvement since previous exams. Prior exam of Decubitus Ulcer with mild surrounding Erythema, reportedly improved. Psych: Normal mood and affect. DS: Data Vitals/I&O Vitals and I&O: Vital Signs Temperature 37.1 C 05/08/19 07:10 Temperature Source Tympanic 05/08/19 07:10 Pulse 74 05/08/19 07:10 Pulse Rhythm Regular 05/07/19 20:39 Pulse 77 05/01/19 16:10 Respiratory Rate 18 05/08/19 07:10 Respiratory Effort Non-Labored 05/07/19 20:39 Respiratory Depth Normal 05/07/19 20:39 Respiratory Pattern Normal 05/07/19 20:39 Blood Pressure 175/83 H 05/08/19 07:10 Blood Pressure Mean 78 05/01/19 16:01 Blood Pressure Position Supine 05/01/19 12:33 Pulse Oximetry 95 05/08/19 07:10 Oxygen Delivery Method Room Air 05/08/19 07:10 Oxygen Flow Rate 0 05/08/19 07:10 Pain Level 4 05/08/19 08:04 Comment 05/05/19 15:51 Intake & Output 05/07/19 05/07/19 05/08/19 11:59 23:59 11:59 Intake Total 910 / 1950 1040 / 1950 240 / 240 Output Total 1125 / 1675 550 / 1675 250 / 250 Balance -215 / 275 490 / 275 -10 / -10 Weight 92.7 kg 94.8 kg Intake: IV 70 / 630 560 / 630 Oral 840 / 1320 480 / 1320 240 / 240 Output: Urine 1125 / 1675 550 / 1675 250 / 250 Other: Urine Color Light Shira Yellow Yellow Urine Appearance Clear Clear Comment strong odour from the urine Patient missed hat Stool Occult Blood Negative Stool Size Small Moderate Stool Characteristics Formed Soft Hard Brown Voiding Methods Toilet Toilet Completed studies during hospitalization [Text1]: Exam(s) 05/01/[address]:CT head wo SYMPTOMS/DIAGNOSIS: ALTERED MENTAL STATUS, KNOWN CANCER WITH METS CRANIAL CT: A noncontrast enhanced examination was performed. Atrophic changes consistent with age are demonstrated. There is no evidence of an intra/extra-axial hemorrhage, or mass or edema. There are regions of diminished absorption in the frontoparietal and periventricular white matter consistent with small vessel disease. The ventricles are unremarkable. There is no evidence of a skull fracture. The paranasal sinuses are normal. There is no evidence of a mastoid effusion. SUMMARY: No acute intracranial abnormality is seen. -------- Exam(s) 05/01/2019 a RAD:XR chest 1V in DI dept SYMPTOMS/DIAGNOSIS: CONFUSION, COUGH AP UPRIGHT CHEST: Allowing for poor inspiratory effort, there are no gross infiltrates in the lungs. The heart appears somewhat enlarged. Note is incidentally made of severe degenerative changes involving both shoulders. SUMMARY: No evidence of acute cardiopulmonary disease. --------- Exam(s) 05/06/2019 a RAD:XR shoulder LT complete 2+V SYMPTOM/DIAGNOSIS: LFT SHOULDER PAIN, POST FALL LEFT SHOULDER: 05/06 The patient reportedly has a history of metastatic prostatic carcinoma. There are severe degenerative changes of the glenohumeral and acromioclavicular joints. Expansion and sclerosis of the distal clavicle may represent a metastatic lesion or may be related to old fracture. No acute fracture identified. The humeral head abuts the undersurface of the acromion which appears mildly eroded from the humeral head consistent with a chronic severe rotator cuff tear. CONCLUSION: No evidence of acute fracture or dislocation. Labs on day of discharge: Labs from last 24 hours 05/08/19 05/08/19 05/08/19 06:50 06:50 06:50 WBC 5.33 RBC 3.31 L Hgb 11.0 L Hct 34.4 L MCV 103.9 H MCH 33.2 H MCHC 32.0 RDW 13.8 Plt Count 391 MPV 8.8 Immature Gran % 0.4 Neutrophils % 70.9 Lymphocytes % 12.9 Monocytes % 10.5 Eosinophils % 4.9 Basophils % 0.4 Absolute Neutrophils 3.78 Absolute Lymphocytes 0.69 L Absolute Monocytes 0.56 Absolute Eosinophils 0.26 Absolute Basophils 0.02 Sodium 143 Potassium 4.4 Chloride 107 Carbon Dioxide 30.0 Anion Gap 6.0 BUN 15 Creatinine 0.97 Estimated GFR/1.73 m2 >= 60.00 Glucose 117 H Calcium 8.6 Magnesium 2.1 C-Reactive Protein 6.64 H C-React Prot High Sens Pending Stool Campylobacter PCR Stool Salmonella PCR Stool Shigella PCR Shiga Toxin (PCR) 05/07/19 21:45 WBC RBC Hgb Hct MCV MCH MCHC RDW Plt Count MPV Immature Gran % Neutrophils % Lymphocytes % Monocytes % Eosinophils % Basophils % Absolute Neutrophils Absolute Lymphocytes Absolute Monocytes Absolute Eosinophils Absolute Basophils Sodium Potassium Chloride Carbon Dioxide Anion Gap BUN Creatinine Estimated GFR/1.73 m2 Glucose Calcium Magnesium C-Reactive Protein C-React Prot High Sens Stool Campylobacter PCR Pending Stool Salmonella PCR Pending Stool Shigella PCR Pending Shiga Toxin (PCR) Pending [facility] Medical History Decubital ulcer (Chronic) Left rotator cuff tear (Chronic) 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) Memory loss (Chronic) Hypertension (Chronic) Metastatic malignant neoplasm to prostate (Chronic) Hyperlipidemia (Chronic) Lichen sclerosus (Acute) TBI (traumatic brain injury) (Acute) Edema (Resolved) Left foot pain (Resolved) Chronic kidney disease, stage 3 Hx of acute renal failure Mononeuropathy of left lower extremity Peripheral edema Physeal fracture of phalanx of toe of left foot Pressure ulcer Family History Mother Lung cancer Social History Smoking/Tobacco Use Status: Never Alcohol Intake: never Substance use type: does not use Household members: spouse Number of Children: 2 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
--- NOTE | 2019-05-08 12:12 | PDOC.HHF2F ---
1. Encounter Date and Reason I certify that CALEB ARCHER was seen by Sawyer Toscano on 05/08/19 and that I had a [id number] encounter with this patient that meets the physician face to face encounter requirements. 2. Clinical Findings Supporting Skilled Need and Homebound Status I certify that home health services are medically necessary, include either intermittent assisted and/or physical/speech therapy, and that this patient is homebound in that absences from the home require considerable and taxing effort and are infrequent or of short duration, or are attributable to the need to receive medical care. [X] (a) Attached documentation from encounter provides clinical findings supporting skilled need and homebound status (including what assistance patient requires to leave the home). The encounter with the patient was in whole, or in part, for the following medical condition, which is the primary reason for home health care: CELLULITIS ASSOCIATED WITH A DECUB ULCER,ENCEPHALO [facility]: Wound Care, Wound Check, Antibiotic checks. Physical Therapy/ Occupational Therapy: Deconditioning, weakness. Speech Therapy: Homebound: 3. Certification and Authentication I certify that I composed the above information based on my clinical judgement relating to this patient's medical condition and, if applicable, clinical findings communicated to me by the NPP or inpatient physician who performed the Home Health Referral. All further orders will be obtained through (Community Based Physician - PCP)
--- NOTE | 2019-05-08 12:16 | HHF2F_ITS ---
1. Encounter Date and Reason I certify that CALEB ARCHER was seen by Sawyer Toscano on 05/08/19 and that I had a [id number] encounter with this patient that meets the physician face to face encounter requirements. 2. Clinical Findings Supporting Skilled Need and Homebound Status I certify that home health services are medically necessary, include either intermittent residential and/or physical/speech therapy, and that this patient is homebound in that absences from the home require considerable and taxing effort and are infrequent or of short duration, or are attributable to the need to receive medical care. [X] (a) Attached documentation from encounter provides clinical findings supporting skilled need and homebound status (including what assistance patient requires to leave the home). The encounter with the patient was in whole, or in part, for the following medical condition, which is the primary reason for home health care: CELLULITIS ASSOCIATED WITH A DECUB ULCER,ENCEPHALO [facility]: Wound Care, Wound Check, Antibiotic checks. Physical Therapy/ Occupational Therapy: Deconditioning, weakness. Speech Therapy: Homebound: 3. Certification and Authentication I certify that I composed the above information based on my clinical judgement relating to this patient's medical condition and, if applicable, clinical findings communicated to me by the NPP or inpatient physician who performed the Home Health Referral. All further orders will be obtained through (Community Based Physician - PCP)
--- NOTE | 2019-05-08 12:58 | W.NUTCONSULT ---
Date of service: 05/08/19 Time of Service: 12:59 Nutritional Consult ASSESSMENT: NOTE: Consult was missed when ordered 05/02. 05/08/19: Appreciate nutrition consult for Manjit Adrian who is hospitalized with altered mentation secondary to wound. Over the past 4 days he is eating 100% of his meals. BMI 40.8 with 5kg weight loss over 6 days. Nutritional needs include 94 grams protein daily. INTERVENTION: Today he is offered Hussain which he finds palatable. He will be given 7 days of Hussain to help with wound healing. Encourage protein food of 30 grams per meal in addition to Hussain. MONITORING AND EVALUATION: Will follow his progress and continue to offer high protein meals in addition to Hussain. Time Spent in Nutritional Counseling and Treatment: 5 minutes
--- NOTE | 2019-05-08 13:18 | PDOC.CMDIS ---
- If Service Date Differs Date of service: 05/08/19 Time of Service: 13:18 LACE Index Scoring Tool - Questions: Length of Stay (in days): 7 - 13 Acuity (Admit via E.D.?): Yes Comorbidities: Liver or Renal Disease, Metastatic Solid Tumor E.D. Visits: 1 - Answers: Total Score: 14 Risk of Readmission: High Risk Care Management Discharge Reason for Hospitalization: Altered mental status, cellulitis Discharge Plan: Lester will be discharged home with new home health services of detention, OT and PT. He will be transported by his via private vehicle. Lester will follow up with his PCP and discharge plan of care.
--- NOTE | 2019-05-08 17:12 | INDS_ITS ---
Date of service: 05/08/19 PT Notes Inpatient Physical Therapy Discharge Summary Dates: 05/08/2019 Dates of Service: 05/02/2019 through 05/08/2019 This is a clinical summary of care provided on the duration of dates listed above. No charge was made in the completion of this documentation. Referring Doctor: Dr. Loly Brown PT Orders: PT CONSULT: eval/treat Precautions: fall, standard Patient Profile/Admitting Diagnosis: Patient admitted 05/01/19 after his found him to be lethargic and confused. He was transported to the ER by ambulance, where he was diagnosed with sepsis syndrome. PMHX: TBI, metastatic prostate cancer, hypertension, hyperlipidemia, memory loss, chronic pain on opioids Social History/Home Situation: Patient lives in a multilevel home with ramp to enter. He remains on the first floor of the home, stating he has not manage stairs in many years. He lives with his , who was present at time of evaluation. He is retired, and attends outpatient physical therapy for an independent exercise program 2 times per week. Equipment Owned/DME: Front wheeled walker Subjective: Patient states that he is feeling much clearer today. He states that he feels a little below his baseline although is ready to get up and try walking. He admits that he is bit nervous about getting out of bed and is anxious to speak with the doctor about his current issues. Objective: General Observation: Resting in bed with IV in RUE, Bansal catheter in place, 2 L supplemental O2 via nasal cannula. Patient has multiple wounds throughout the lower extremities, in various stages of healing. He has significant edema in the LLE, with warmth noted bilaterally. Mental Status: A and O x3, although patient frequently repeats questions and intermittently requires cues from his during history taking Pain: patient reports chronic left shoulder pain Vital Signs: SaO2 98% at rest. With removal of supplemental oxygen, he rests at 92%. Nasal cannula was replaced with 2 LPM supplemental oxygen at end of session. ROM: Right Upper Extremity: WFL Left Upper Extremity: Passive left shoulder motion allows 130 degrees. Actively, patient is unable to initiate elevation or external rotation. Right Lower Extremity: Grossly WFL Left Lower Extremity: Grossly WFL Strength: Right Upper Extremity: 3/5 for all shoulder motions Left Upper Extremity: Patient lacks active left shoulder range of motion. He is able to demonstrate 3/5 strength at the elbow and wrist Right Lower Extremity: Functionally, patient is able to perform heel slides and SLR. Quad strength is 4/5. Hamstrings 4-/5. Ankle dorsiflexion 0/5 Left Lower Extremity: Functionally, patient is able to perform heel slides and SLR. Quad strength is 4/5. Hamstrings 4-/5. Ankle dorsiflexion 0/5 Sensation: Unable to identify light touch to the plantar or dorsal aspect of the left foot and ankle Bed Mobility/Transfers: Supine?sit: CGA sit?stand: CGA Stand?sit: CGA Gait: Patient is now able to tolerate 15 feet of level surface ambulation with CGA using front wheeled walker. Patient continues to demonstrate decreased gait velocity, decreased step length and decreased step height. Verbal cues also needed for increased trunk alignment and for overall safety. Balance: Static Sitting: Good Dynamic Sitting: Good Static Standing: Fair Dynamic Standing: Fair Assessment: Patient is a 78 year old male referred to physical therapy services with the diagnosis of sepsis. Patient continues to present with clinical signs and symptoms consistent with diagnosis. He has baseline mobility issues, and demonstrates reduced mobility today as a result of his acute medical issues. He requires skilled PT Intervention to address these issues and allow for safe transition back home with assistance from his . Given his mobility today, he may require a brief rehab stay prior to returning home. [facility] following impairment level findings: 1. Chronically painful left shoulder with reduced range of motion and strength 2. Decreased lower extremity strength bilaterally 3. Decreased activity tolerance 4. Decreased skin integrity with multiple lower extremity wounds in various stages of healing 5. Bilateral foot drop 6. Decreased standing balance Impairments are contributing to the following functional limitations: 1. Decreased independence of bed mobility 2. Decreased independence of short distance ambulation 3. High fall risk 4. Decreased activity tolerance Goals: Goals X1 week 1. Supine-Sit : supervision NOT MET 2. Sit-Supine : supervision NOT MET 3. Sit-Stand : supervision NOT MET 4. Stand-Sit : supervision NOT MET 5. Bed-Chair: supervision with FWW NOT MET 6. Chair-Bed : supervision with FWW NOT MET 7. Gait : supervision with FWW x 30' NOT MET DISCHARGE RECOMMENDATIONS: Patient goes home today with a . Patient will benefit from home health PT services in order to progress mobility level using least restrictive assistive ambulatory device/using no device, assess home safety, identify additional equipment needs, and establish a functional [facility] program that will increase ability of patient to remain at home. TREATMENT CODE/TIME: NC Thank you very much for this referral. Liliane Morales PT, DPT, CLT [facility]
[2019-05-08 22:54] LABS: CRP, High Sensitivity >15.00 mg/L
--- NOTE | 2019-05-09 07:41 | OT.INDS ---
Date of service: 05/09/19 Time of Service: 07:42 Occupational Therapy Notes Occupational Therapy Discharge Summary Date: 05/09/19 for 05/08/19 Dates of Service: 05/06/19 - 05/08/19 Referring Doctor: Loly Brown MD OT Orders: Eval and Treat Precautions: Contact, Fall PATIENT PROFILE/ADMITTING DIAGNOSIS: Pt is an 78 year old male who was admitted through the ER for sepsis. Past Medical History: TBI, metastatic prostate cancer, hypertension, hyperlipidemia, memory loss, chronic pain on opioids Social History/Home Situation: Pt lives in a private home with his , he is currently battling cancer. He is functionally (I) in all ADLs/IADLs at baseline. Pt states that he has both a tub shower and a walk in shower. He performs his functional mobility with use of a walker and performs outpatient PT at [facility] 3x/week. He has a regular toilet and reports that other than driving he is able to (I) to perform all ADLs without (A). His does (A) in the home when needed. Equipment owned/DME: Cane, FWW, 4WW SUBJECTIVE: NT THIS DOCUMENT SERVES A SUMMARY OF CARE NO SKILLED OT SERVICES PROVIDED FOR THIS DOCUMENTATION OBJECTIVE: ROM: RUE Shoulder flexion 150*, elbow WNL, hand, wrist and digits WNL L UE Limited actively to 80*, passively 120*, elbow WNL, hand, wrist and digits WNL STRENGTH: RUE Shoulder flexion 3/5, bicep 3+/5, tricep 3/5, ex assistant/program director is symmetrical LUE Unable to test shoulder flexion, bicep 3+/5, tricep 3/5, ex assistant/program director is symmetrical FUNCTIONAL MOBILITY/ADLS: Transfers Supine-sit (I) Sit-supine (I) Sit-stand CGA Stand-sit CGA Chair to toilet- CGA FWW Toilet to chair- CGA, FWW BATHING Pt denies at all OT sessions. DRESSING Sitting in bed Dressing UE Mod (A) don and doffing hosptial gown Dressing LE Max (A) donning (B) socks at this time, with adaptive equipment and min vc mod (I) TOILETING on toilet max (A) toileting hygiene EATING Seated position (I) BALANCE: Static sitting Good Dynamic Sitting Good Static standing Good Dynamic standing fair ASSESSMENT: Patient is a 78-year-old male referred to occupational therapy services with diagnosis of sepsis. Pt was seen for 3 skilled OT services. Pt was able to make improvements in functional gains for ADLs/IADLs but still requires mod-max (A). Pt was discharged on 05/08/19 to return to home with HH services. OT does feel that pt would benefit from a home assessment and assessment of his ADLs in the home setting. GOALS 1. Transfers with FWW (S) - not met 2. Dressing (I) in sitting position UE/LE- met 3. Bathing in sitting (I) with UE bathing. - not met, pt denied 4. Toileting on toilet (I) - not met 5. Eating (I)- met 6. Grooming standing at sink with FWW (I)- not met PLAN OF CARE/TREATMENT PLAN: Pt was discharged home with HH services on 05/08/19 DISCHARGE RECOMMENDATIONS Based on pt current level of care OT recommends that pt return home with HH services vs. Short term stay in SNF . TREATMENT TIME/MINUTES/CODES N/A Zonia García OTR/L [facility]
[2019-05-09 11:25] LABS: Campylobacter PCR SEE COMMENTS; Salmonella PCR SEE COMMENTS; Shiga Toxin PCR SEE COMMENTS; Shigella/Enteroinvasive Ecoli SEE COMMENTS
== END 2019-05-08 13:53 | disposition home health service (06) | DRG 871 ==
LOC: ER 16:21 → MS 16:39 → ICU 05-09 10:23
PROVIDERS: Admitting Provider Internal Medicine; Emergency Provider Student in an Organized Health Care Education/Training Program; PCP Internal Medicine; Visit Provider Internal Medicine
DX: A41.9 Sepsis, unspecified organism (principal); G92 Toxic encephalopathy; L03.317 Cellulitis of buttock; L03.115 Cellulitis of right lower limb; L03.116 Cellulitis of left lower limb; L97.929 Non-pressure chronic ulcer of unspecified part of left lower leg with unspecified severity; L97.919 Non-pressure chronic ulcer of unspecified part of right lower leg with unspecified severity; C79.51 Secondary malignant neoplasm of bone; F05 Delirium due to known physiological condition; E86.0 Dehydration; W88.1XXA Exposure to radioactive isotopes, initial encounter; I10 Essential (primary) hypertension; E78.5 Hyperlipidemia, unspecified; G89.29 Other chronic pain; Z79.891 Long term (current) use of opiate analgesic; L89.329 Pressure ulcer of left buttock, unspecified stage; L89.319 Pressure ulcer of right buttock, unspecified stage; M25.511 Pain in right shoulder; W19.XXXA Unspecified fall, initial encounter; C61 Malignant neoplasm of prostate; R32 Unspecified urinary incontinence; Z87.820 Personal history of traumatic brain injury
CPT/HCPCS: 36410; 36415; 80048; 80053; 82805; 84145; 86141; 87040; 87505; 87798; 93005; 96361; 96365; 97110; 97163; 97166; 97530; 99223; 99232; 99233; 99239; 99285; J1650; 36600; 70450; 71045; 73030; 80202; 81003; 81015; 82140; 82607; 82746; 83605; 83630; 83735; 83880; 84443; 84484; 85025; 85610; 85730; 86140; 86618; 87086; 87324; 93010; J0690; J1644; J1941; J3370

== ENCOUNTER 2019-05-13 11:21 | Outpatient (REF) | payer MEDICARE, SELFPAY ==
[2019-05-13 12:35] LABS: Abs Immature Grans 0.02 k/cumm (0.0-0.09); Absolute Basophil Count 0.03 k/cumm (0.0-0.2); Absolute Eosinophil Count 0.17 k/cumm (0.0-0.7); Absolute Lymphocyte Count 1.04 k/cumm (1.2-3.4); Absolute Monocyte Count 0.67 k/cumm (0.11-0.7); Absolute Neutrophil Count 3.78 k/cumm (1.2-6.7); Basophils % 0.5; HCT 35.7 % (40.0-50.0); HGB 11.6 g/dL (13.5-17.5); Immature Grans % 0.4; Lymphocytes % 18.2; Mean Corp. HGB Concentration 32.5 g/dL (32.0-36.0); Mean Corpuscular Hemoglobin 33.8 pg (27.0-33.0); Mean Corpuscular Volume 104.1 fL (80-95); Monocytes % 11.7; Neutrophils % 66.2; Platelet Count 499 x1000/uL (130-400); RBC 3.43 m/cumm (4.50-6.00); RBC Distribution Width 13.7 % (11.8-14.1); White Blood Cell Count 5.71 k/cumm (4.4-10.8)
[2019-05-13 12:42] LABS: Anion Gap 4.1 mmol/L (3-11); BUN 30 mg/dL (7-18); C-Reactive Protein 1.21 mg/dL (0.0-0.3); CO2 32.9 mmol/L (21.0-32.0); CREATININE 0.81 mg/dL (0.70-1.30); Calcium 9.6 mg/dL (8.5-10.1); Chloride 104 mmol/L (98-107); Glucose 119 mg/dL (70-100); Sodium 141 mmol/L (136-145)
== END 2019-05-13 11:41 ==
LOC: NCHCN 11:21
PROVIDERS: PCP Internal Medicine; Visit Provider Internal Medicine
DX: L03.116 Cellulitis of left lower limb (principal); Z79.2 Long term (current) use of antibiotics
CPT/HCPCS: 80048; 85025; 86140

== ENCOUNTER 2019-06-24 15:41 | Outpatient (CLI) | payer MEDICARE, SELFPAY ==
[2019-06-24 16:11] LABS: Abs Immature Grans 0.01 k/cumm (0.0-0.09); Absolute Basophil Count 0.01 k/cumm (0.0-0.2); Absolute Eosinophil Count 0.27 k/cumm (0.0-0.7); Absolute Lymphocyte Count 1.18 k/cumm (1.2-3.4); Absolute Monocyte Count 0.66 k/cumm (0.11-0.7); Absolute Neutrophil Count 4.13 k/cumm (1.2-6.7); Basophils % 0.2; Eosinophils % 4.3; HCT 40.4 % (40.0-50.0); HGB 13.2 g/dL (13.5-17.5); Immature Grans % 0.2; Lymphocytes % 18.8; Mean Corp. HGB Concentration 32.7 g/dL (32.0-36.0); Mean Corpuscular Hemoglobin 33.8 pg (27.0-33.0); Mean Corpuscular Volume 103.6 fL (80-95); Mean Platelet Volume 9.1 fL (8.0-11.0); Monocytes % 10.5; Platelet Count 218 x1000/uL (130-400); RBC Distribution Width 14.6 % (11.8-14.1); White Blood Cell Count 6.26 k/cumm (4.4-10.8)
[2019-06-24 17:14] LABS: ALT 16 U/L (16-63); AST 16 U/L (15-37); Albumin 2.9 g/dL (3.4-5.0); Alkaline Phosphatase 101 U/L (46-116); Anion Gap 8.4 mmol/L (3-11); BUN 24 mg/dL (7-18); Bilirubin, Total 0.3 mg/dL (0.2-1.0); CO2 29.6 mmol/L (21.0-32.0); CREATININE 1.25 mg/dL (0.70-1.30); Calcium 8.7 mg/dL (8.5-10.1); Chloride 106 mmol/L (98-107); Estimated GFR 55.86 (mL/min/1.73m2); Glucose 124 mg/dL (70-100); Potassium 4.5 mmol/L (3.5-5.1); Sodium 144 mmol/L (136-145); Total Protein 6.4 g/dL (6.4-8.2)
[2019-06-25 11:07] LABS: PSA, Diagnostic 18.1 ng/ml (0-6.5)
[2019-06-27 13:21] LABS: Testosterone, Total <7.0 ng/dL (240-950)
== END 2019-06-24 16:01 ==
PROVIDERS: PCP Internal Medicine; Visit Provider Internal Medicine
DX: C61 Malignant neoplasm of prostate (principal); C79.51 Secondary malignant neoplasm of bone
CPT/HCPCS: 36415; 80053; 84403; 84153; 85025

== ENCOUNTER 2019-07-23 01:04 | Outpatient (CLI) | payer MEDICARE, SELFPAY ==
--- NOTE | 2019-07-23 09:30 | DI.NM_ITS ---
EXAM: NM BONE SCAN WHOLE BODY GRP CLINICAL HISTORY: PROSTATE CANCER METASTATIC TO MULTIPLE SITES C61. TECHNIQUE: The study carried out according to the usual protocol with an intravenous administration of 26 mCi of Tc 99 MDP. COMPARISON: WHOLE BODY BONE SCAN from 02/12/2019 FINDINGS: The examination is with the prior study of 02/12/2019. Again noted are the regions of increased dens ity in the ribs without gross interval change. There is a very small region of increased activity inv olving the inferior border of the right ilium which was not seen on the prior study. There is a sizab le region of diminished photon density in the left verenice sacrum, this region not demonstrated on the p revious study due to activity in a distended bladder. There are small regions of increased photon den sity in the right verenice sacrum, unchanged. A tiny region of increased proton density in the proximal r ight tibia is identified. IMPRESSION: There has been no significant interval change when compared with the prior study of 02/12/2019. Note is made of a small area of increased photon density in the right ilium and sizable lesion of diminish ed proton density involving the left verenice sacrum. This region was obscured by bladder activity on prior study. Symmetrical activity is noted over the renal beds. Bladder activity is seen.
[2019-07-23 09:44] LABS: Absolute Basophil Count 0.01 k/cumm (0.0-0.2); Absolute Eosinophil Count 0.16 k/cumm (0.0-0.7); Absolute Lymphocyte Count 0.88 k/cumm (1.2-3.4); Absolute Neutrophil Count 2.01 k/cumm (1.2-6.7); Basophils % 0.3; Eosinophils % 4.5; HCT 40.6 % (40.0-50.0); HGB 13.2 g/dL (13.5-17.5); Lymphocytes % 24.7; Mean Corp. HGB Concentration 32.5 g/dL (32.0-36.0); Mean Corpuscular Hemoglobin 33.3 pg (27.0-33.0); Mean Corpuscular Volume 102.5 fL (80-95); Mean Platelet Volume 8.9 fL (8.0-11.0); Neutrophils % 56.5; Platelet Count 228 x1000/uL (130-400); RBC 3.96 m/cumm (4.50-6.00); RBC Distribution Width 14.1 % (11.8-14.1); White Blood Cell Count 3.56 k/cumm (4.4-10.8)
[2019-07-23 10:05] LABS: ALT 29 U/L (16-63); AST 17 U/L (15-37); Alkaline Phosphatase 129 U/L (46-116); Anion Gap 6.1 mmol/L (3-11); BUN 21 mg/dL (7-18); Bilirubin, Total 0.3 mg/dL (0.2-1.0); CO2 29.9 mmol/L (21.0-32.0); CREATININE 0.87 mg/dL (0.70-1.30); Chloride 107 mmol/L (98-107); Glucose 114 mg/dL (70-100); Potassium 4.2 mmol/L (3.5-5.1); Sodium 143 mmol/L (136-145)
[2019-07-23] MEDS: Omnipaque 350 MG/ML 100 ML BTL IJ (10:59)
[2019-07-23] MEDS: Normal Saline - Diluent 50 ML VIAL IV (11:00)
--- NOTE | 2019-07-23 11:00 | DI.CT_ITS ---
EXAM: CT CHEST/ABD/PEL W CLINICAL HISTORY: PROSTATE CANCER METASTATIC TO MULTIPLE SITES C61. TECHNIQUE: The study was carried out with intravenous administration of 100 cc of Omnipaque 350. COMPARISON: CT CHEST/ABD/PEL W from 04/23/2019 FINDINGS: Chest: Opacities in the left lower lobe could represent atelectasis or pneumonia. There is no eviden ce of a pneumothorax or pleural effusion. The heart is not enlarged. Aorta is unremarkable. No enla rged lymph nodes are seen. There may be a healed fracture of the left clavicle. There are incompletel y healed rib fractures bilaterally. The soft tissues are unremarkable. Abdomen and pelvis: The liver is unremarkable. There may be a gallstone in the gallbladder. Pancreatic atrophy is identi fied. Spleen is normal. The adrenals are normal. There are right pararenal cysts and additional small er cysts are noted in both kidneys. There is no evidence of ureterolithiasis. There is no evidence o f obstruction. Diverticulosis is identified with no evidence of diverticulitis. There is no evidence of obstruction. There is no evidence of an acute appendix. There is no evidence of free air or free fluid in the intraperitoneal space. There is no evidence of an abdominal aortic aneurysm. No enlar ged lymph nodes are seen. The bladder is unremarkable. The reproductive organs are unremarkable. There are multiple lytic lesio ns in the pelvis consistent with a history of metastatic disease and prominent lytic and sclerotic ma ss is noted involving the left verenice sacrum. The soft tissues are unremarkable. IMPRESSION: Opacities in the left lower lobe could represent atelectasis or pneumonia. There are incompletely hea led bilateral rib fractures. Question cholelithiasis. Multiple lytic lesions in the pelvis consistent with a history of metastatic disease. There is a sizable lesion involving the left verenice sacrum.
[2019-07-23] MEDS: Breeza Beverage 473 ML BTL PO (11:01)
--- NOTE | 2019-07-23 17:18 | DI.VRAD_ITS ---
PROCEDURE INFORMATION: Exam: CT Chest With Contrast Exam date and time: 07/23/2019 11:16 AM Clinical history: 79 years old, male; Other: Prostate CA, mets to multiple sites; Other: Umknown; Follow-up oncological assessment; Primary cancer: Prostate w multiple metastatic sites; Current or recent treatment: Other: Unknown TECHNIQUE: Imaging protocol: Computed tomography of the chest with intravenous contrast. Radiation optimization: All CT scans at this facility use at least one of these dose optimization techniques: automated exposure control; mA and/or kV adjustment per patient size (includes targeted exams where dose is matched to clinical indication); or iterative reconstruction. Contrast material: OMNIPAQUE 350; Contrast volume: 100 ml; Contrast route: IV; COMPARISON: CT CHEST/ABD/PEL W 04/23/2019 12:10 PM FINDINGS: Lungs: Opacities in the left lower lobe may represent atelectasis or pneumonia. Pleural space: Unremarkable. No pneumothorax. No pleural effusion. Heart: Unremarkable. No cardiomegaly. No pericardial effusion. Aorta: Unremarkable. No aortic aneurysm. Lymph nodes: Unremarkable. No enlarged lymph nodes. Bones/joints: There may be a healed lateral left clavicle fracture . There are incompletely healed rib fractures bilaterally Soft tissues: Unremarkable. IMPRESSION: Opacities in the left lower lobe may represent atelectasis or pneumonia. Incompletely healed fractures bilaterally PROCEDURE INFORMATION: Exam: CT Abdomen and Pelvis With Contrast Exam date and time: 07/23/2019 11:16 AM Clinical history: 79 years old, male; Other: Prostate CA, mets to multiple sites; Other: Umknown; Follow-up oncological assessment; Primary cancer: Prostate w multiple metastatic sites; Current or recent treatment: Other: Unknown TECHNIQUE: Imaging protocol: Computed tomography of the abdomen and pelvis with intravenous contrast. Radiation optimization: All CT scans at this facility use at least one of these dose optimization techniques: automated exposure control; mA and/or kV adjustment per patient size (includes targeted exams where dose is matched to clinical indication); or iterative reconstruction. Contrast material: OMNIPAQUE 350; Contrast volume: 100 ml; Contrast route: IV; COMPARISON: CT CHEST/ABD/PEL W 04/23/2019 12:10 PM FINDINGS: Liver: Normal. No mass. Gallbladder and bile ducts: There may be a gallstone in the gallbladder. Pancreas: Pancreatic atrophy Spleen: Normal. No splenomegaly. Adrenals: Normal. No mass. Kidneys and ureters: Right pararenal cysts. Additional smaller cysts in both kidneys. No ureteral calculus Stomach and bowel: Diverticulosis of the rectosigmoid. No diverticulitis. Appendix: No evidence of appendicitis. Intraperitoneal space: Unremarkable. No free air. No significant fluid collection. Vasculature: Unremarkable. No abdominal aortic aneurysm. Lymph nodes: Unremarkable. No enlarged lymph nodes. Bladder: Unremarkable as visualized. Reproductive: Unremarkable as visualized. Bones/joints: Multiple lytic lesions in the pelvis consistent with the history of metastatic disease. Much of the left hemisacrum is involved. Soft tissues: Unremarkable. IMPRESSION: 1. There may be a gallstone in the gallbladder. 2. Multiple lytic lesions in the pelvis consistent with the history of metastatic disease. Much of the left hemisacrum is involved. Dictated and Authenticated by: Kehinde Wong MD. Ordering:SONYA Askew MD
[2019-07-24 15:15] LABS: PSA, Diagnostic 32.1 ng/ml (0-6.5)
[2019-07-25 11:19] LABS: Testosterone, Total 9.7 ng/dL (240-950)
== END 2019-07-23 01:24 ==
PROVIDERS: Internal Medicine; PCP Internal Medicine; Visit Provider Registered Nurse Oncology
DX: C61 Malignant neoplasm of prostate (principal); J98.4 Other disorders of lung; C79.51 Secondary malignant neoplasm of bone; S22.43XD Multiple fractures of ribs, bilateral, subsequent encounter for fracture with routine healing
CPT/HCPCS: 74177; 78306; 80053; 84153; 84403; 71260; 85025; J3490

== ENCOUNTER 2019-09-09 11:40 | Outpatient (CLI) | payer MEDICARE, SELFPAY ==
[2019-09-09 13:21] LABS: Abs Immature Grans 0.01 k/cumm (0.0-0.09); Absolute Basophil Count 0.01 k/cumm (0.0-0.2); Absolute Eosinophil Count 0.23 k/cumm (0.0-0.7); Absolute Lymphocyte Count 1.05 k/cumm (1.2-3.4); Absolute Monocyte Count 0.49 k/cumm (0.11-0.7); Basophils % 0.2; Eosinophils % 4.4; HCT 43.4 % (40.0-50.0); HGB 14.2 g/dL (13.5-17.5); Immature Grans % 0.2; Lymphocytes % 20.2; Mean Corp. HGB Concentration 32.7 g/dL (32.0-36.0); Mean Corpuscular Hemoglobin 32.8 pg (27.0-33.0); Mean Corpuscular Volume 100.2 fL (80-95); Mean Platelet Volume 8.9 fL (8.0-11.0); Monocytes % 9.4; Neutrophils % 65.6; Platelet Count 247 x1000/uL (130-400); RBC 4.33 m/cumm (4.50-6.00); RBC Distribution Width 13.6 % (11.8-14.1); White Blood Cell Count 5.19 k/cumm (4.4-10.8)
[2019-09-09 13:28] LABS: ALT 21 U/L (16-63); AST 18 U/L (15-37); Albumin 3.3 g/dL (3.4-5.0); Alkaline Phosphatase 93 U/L (46-116); Anion Gap 4.9 mmol/L (3-11); BUN 20 mg/dL (7-18); Bilirubin, Total 0.2 mg/dL (0.2-1.0); CO2 33.1 mmol/L (21.0-32.0); CREATININE 0.89 mg/dL (0.70-1.30); Chloride 105 mmol/L (98-107); Glucose 100 mg/dL (70-100); Potassium 4.3 mmol/L (3.5-5.1); Sodium 143 mmol/L (136-145); Total Protein 7.3 g/dL (6.4-8.2)
[2019-09-11 15:27] LABS: PSA, Diagnostic 89.4 ng/mL (0.0-6.5)
[2019-09-12 08:24] LABS: Testosterone, Total <7.0 ng/dL (240-950)
== END 2019-09-09 12:00 ==
PROVIDERS: PCP Internal Medicine; Visit Provider Internal Medicine
DX: C61 Malignant neoplasm of prostate (principal); C79.51 Secondary malignant neoplasm of bone
CPT/HCPCS: 36415; 80053; 84403; 84153; 85025

== ENCOUNTER 2019-09-13 12:54 | Inpatient (IN) | payer MEDICARE, SELFPAY ==
[2019-09-13] VITALS (50 sets, daily range): BP systolic 108–180; BP diastolic 43–90; PULSE 60–80; RESP 9–21; TEMP 36.7–39.1; O2SAT 87–100
--- NOTE | 2019-09-13 13:05 | ED.GENADUL_ITS ---
Discharge Plan Disposition Patient Disposition: [facility] INPATIENT Condition: Stable Discharge Details Chief Complaint: Fever Clinical Impression: Acute UTI Primary Care Provider: Tonny Leslie ED Provider: Salvador Shipley Home Meds and New Rx's Prescriptions: No Action ascorbic acid (vitamin C) [Vitamin C] 1,000 MG tablet 1,000 mg PO DAILY RF: 0 metoprolol succinate 100 MG tablet extended release 24 hr 100 mg PO DAILY RF: 0 Lupron Depot (4 month) 30 MG syringe kit 30 mg IM .Q4 months RF: 0 furosemide 20 MG tablet 20 mg PO DAILY RF: 0 multivitamin tablet 1 tab PO DAILY RF: 0 fluticasone propionate 50 mcg/actuation spray,suspension 1 spray BRIAN DAILY RF: 0 Xgeva 120 mg/1.7 mL (70 mg/mL) solution 120 mg SC Q6W RF: 0 lisinopril 5 mg tablet 10 mg PO DAILY Qty: 2 RF: 0 gabapentin 300 mg capsule 600 mg PO TID RF: 0 calcium carbonate-vitamin D3 500 mg calcium- 400 unit/5 mL liquid 5 ml PO DAILY RF: 0 fentanyl 50 mcg/hr patch 72 hour 1 patch TD Q72H RF: 0 nystatin 100,000 unit/gram Cream 1 applic TOPICAL QID RF: 0 Medical Decision Making 79-year-old male with known metastatic prostate cancer presents with the onset of weakness and fever at home this morning. When trying to get out of his chair today he fell onto his knees. He did not injure himself. EMS was called, found to have a fever, question transient bradycardia, and brought the patient to the ED for evaluation. He arrives with a temp of 39.1, pulse 66, blood pressure 157/59. Differential diagnosis includes urinary tract infection, cellulitis, occult pneumonia, and given his metastatic cancer must exclude intracranial mass. A fentanyl patch is noted, and was removed. Patient had screening laboratories including blood culture and lactate obtained, referred for chest x-ray, urinalysis, CT scan of the head. The patient's states today's presentation is similar to that of previous cellulitis for which he was admitted in April. UA with positive leuk esterase, 10-20 wbc/hpf and bacteria present. Labs otherwise notable for white count of 7, hematocrit 39, platelets 201. Sodium 141, potassium 4.7, chloride 106, bicarb 31, BUN 26, creatinine 1.0, lactic acid is 0.9. LFTs unremarkable, troponin negative. CXR: No infiltrate. The patient's fever broke, he became more alert and oriented, requested food. Given a meal tray and is improving. UTI treated with Ceftriaxone. He is having difficulty weaning from oxygen. Will consider overnight admission for observation and treatment of urinary tract infection. Will replace fentanyl patch as patient is significantly more alert this time. ECG Data Interpretation: Appears to be sinus rhythm with a rate of 63, the QRS is narrow, the UT interval approximately 130, no ST segment elevation. HPI General Mode of arrival: EMS . Date/Time Provider Initiated Documentation: 09/13/19 13:01 . Limitations to Documentation: no limitations . Information obtained by: patient, family and EMS . History of Present Illness 79 year old M presents to the emergency department with the chief complaint of Weakness and fever, abdominal rash, described as similar to prior episodes, and is localized to the abdomen. Patient started experiencing this hour(s) and it has been constant. No relieving factors improve symptom(s), No exacerbating factors reported . Patient notes fever/chills, weakness and other (Fell while trying to get up at home, no injury or syncope); denies cough and syncope. Patient did receive the following treatments prior to arrival, none Related Data Home Medications Medication Instructions Recorded Confirmed Lupron Depot (4 month) 30 mg IM .Q4 months 09/25/17 09/13/19 ascorbic acid (vitamin C) [Vitamin 1,000 mg PO DAILY 09/25/17 09/13/19 C] furosemide 20 mg PO DAILY tab-cap 09/25/17 09/13/19 metoprolol succinate 100 mg PO DAILY tab-cap 09/25/17 09/13/19 calcium carbonate-vitamin D3 500 5 ml PO DAILY ml 12/10/18 09/13/19 mg calcium-400 unit/5 mL oral liquid denosumab 120 mg/1.7 mL (70 mg/mL) 120 mg SC Q6W 12/10/18 09/13/19 subcutaneous solution fluticasone propionate 50 1 spray BRIAN DAILY 12/10/18 09/13/19 mcg/actuation nasal spray,suspension gabapentin 300 mg capsule 600 mg PO TID tab-cap 12/10/18 09/13/19 lisinopril 5 mg tablet 10 mg PO DAILY #2 tab-cap 12/10/18 09/13/19 multivitamin 1 tab PO DAILY 12/10/18 09/13/19 fentanyl 50 mcg/hr transdermal 1 patch TD Q72H 01/31/19 09/13/19 patch nystatin 1 applic TOPICAL QID 09/13/19 09/13/19 Allergies Allergy/AdvReac Type Severity Reaction Status Date / Time No Known Drug Allergies Allergy Unverified 09/13/19 14:10 General Stated Complaint: Fever BENNY: 2 Review of Systems Narrative: Has radiation scheduled for today. Similar presentation with lower extremity cellulitis last summer. Has known yeast infection of abdominal wall as well as decubitus ulcer treated with barrier. 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 Appears sleepy but responds to voice. HEAD: Normocephalic, atraumatic ENT: Mucous membranes dry, oropharynx unremarkable, External ear exam unremarkable EYES: PERRL, EOMI. right conjunctival injection NECK: Full ROM, no JOSE, no menigismus CHEST/RESP: Nontender, clear to auscultation bilateral, no wheeze/rhonchi/rales CARDIOVASCULAR: RRR, no murmur, rub catina. 2+ Rad pulse bilateral ABDOMEN: Soft, nontender, no mass. +Bowel sounds. Beefy-red erythema and skin breakdown under abdominal fat inferiorly EXT: Full ROM, no edema, no rash Neuro: Grossly normal neurologic exam, conversant, interactive. Psych: Speech fluent, thoughts congruent, affect normal Course Vital Signs Vital signs: Vital Signs Temperature 39.1 C H 09/13/19 12:55 Pulse 66 09/13/19 12:55 Respiratory Rate 11 L 09/13/19 12:55 Blood Pressure 157/59 H 09/13/19 12:55 Pulse Oximetry 100 09/13/19 12:55 Temperature 39.1 C H 09/13/19 12:55 Temperature Source Oral 09/13/19 12:55 Pulse 66 09/13/19 12:55 Respiratory Rate 11 L 09/13/19 12:55 Blood Pressure 157/59 H 09/13/19 12:55 Blood Pressure Position Sitting 09/13/19 12:55 Pulse Oximetry 100 09/13/19 12:55 Oxygen Delivery Method Non-Rebreather 09/13/19 12:55 Oxygen Flow Rate 10 09/13/19 12:55 Pain Level 0 09/13/19 12:55
--- NOTE | 2019-09-13 13:10 | DI.CT_ITS ---
EXAM: CT HEAD WO CLINICAL HISTORY: MS change, fever, metastatic ca COMPARISON: No exams were available for comparison FINDINGS: The ventricles and sulci are consistent with the patient's age. There are areas of decreased attenua tion in the white matter most consistent with small vessel ischemic disease. No acute intracranial h emorrhage, midline shift or mass effect is identified. The ventricles are intact. The basilar ciste rns are patent. The visualized paranasal sinuses are clear. The mastoid air cells are well pneumati zed. The calvarium is intact. IMPRESSION: No acute intracranial process. The findings were discussed with the Emergency Department on the date of the examination.
[2019-09-13 14:13] LABS: Bilirubin Negative (Negative); Blood Negative (Negative); Clarity Clear (Clear); Glucose Negative (Negative); Ketones Negative (Negative); Leukocyte Esterase Trace (Negative); Nitrite Negative (Negative); Urobilinogen 0.2 EU/dL (Up TO 0.2)
[2019-09-13] MEDS: ACETAMINOPHEN 1,000 MG/100 ML BTL 400 MG (14:16)
[2019-09-13] MEDS: Normal Saline 1,000 ML 125 ML IV (14:23)
[2019-09-13 14:30] LABS: Epithelial Cells Rare HPF (Negative); RBC 0-2 HPF (0-2)
[2019-09-13 14:31] LABS: Bacteria Few HPF (Negative); C & S Indicated? Yes; Casts Negative LPF (Negative); Crystals Negative HPF (Negative); Mucus Trace (Negative); Other Cells Few Renal (Negative)
--- NOTE | 2019-09-13 15:10 | DI.RAD_ITS ---
EXAM: XR CHEST 2V PA LATERAL INDICATION: FEVER COMPARISON: XR CHEST 1V IN DI DEPT from 05/01/2019 TECHNIQUE: 2D digital imaging was performed. FINDINGS: Heart size appears stable. The pulmonary vasculature is within normal limits. No focal infiltrates are seen. No effusions or pneumothoraces are identified. There are degenerative changes seen in the thoracic spine and the shoulders bilaterally. IMPRESSION: No acute pulmonary process.
[2019-09-13 15:39] LABS: Lactate 0.9 mmol/L (0.6-1.4)
[2019-09-13 15:42] LABS: Abs Immature Grans 0.01 k/cumm (0.0-0.09); Absolute Basophil Count 0.01 k/cumm (0.0-0.2); Absolute Eosinophil Count 0.16 k/cumm (0.0-0.7); Absolute Lymphocyte Count 0.53 k/cumm (1.2-3.4); Absolute Neutrophil Count 5.87 k/cumm (1.2-6.7); Basophils % 0.1; Eosinophils % 2.2; HCT 39.9 % (40.0-50.0); HGB 12.9 g/dL (13.5-17.5); Immature Grans % 0.1; Lymphocytes % 7.4; Mean Corp. HGB Concentration 32.3 g/dL (32.0-36.0); Mean Corpuscular Hemoglobin 32.7 pg (27.0-33.0); Monocytes % 8.4; Neutrophils % 81.8; Platelet Count 201 x1000/uL (130-400); RBC 3.95 m/cumm (4.50-6.00); RBC Distribution Width 13.6 % (11.8-14.1); White Blood Cell Count 7.18 k/cumm (4.4-10.8)
[2019-09-13 15:57] LABS: ALT 21 U/L (16-63); AST 20 U/L (15-37); Albumin 2.7 g/dL (3.4-5.0); Alkaline Phosphatase 77 U/L (46-116); Anion Gap 3.4 mmol/L (3-11); BUN 26 mg/dL (7-18); Bilirubin, Total 0.3 mg/dL (0.2-1.0); CO2 31.6 mmol/L (21.0-32.0); CREATININE 1.04 mg/dL (0.70-1.30); Calcium 8.7 mg/dL (8.5-10.1); Chloride 106 mmol/L (98-107); Glucose 108 mg/dL (70-100); Magnesium 2.1 mg/dL (1.8-2.4); Potassium 4.7 mmol/L (3.5-5.1); Sodium 141 mmol/L (136-145); Total Protein 6.4 g/dL (6.4-8.2); Troponin I < 0.05 ng/mL (0.00-0.06)
[2019-09-13] MEDS: cefTRIAXone 1 GM/50 ML BAG IVPB (16:33)
--- NOTE | 2019-09-13 17:46 | W.PM.HP.N ---
Date of service: 09/13/19 Time of Service: 17:46 Assessment and Plan Assessment and plan (1) UTI (urinary tract infection): Status: Acute Assessment and plan: UTI with alteered mental status. Will continue IVF and antibiotics, pending culture results. As to the fall, unclear if mechanical or not, though former would be consistent with weakness. In any case no arrythmia noted but will maintain on Telemetry overnight. Reviewed ADs, requests DNR. History of Present Illness History of Present Illness Chief Complaint: weakness and confusion Narrative: 79 male witth metastatic prostate CA. here witth one day of weakness, some confusion, and unwitnessed fall. Here in ER w/u of note for temp 39.1 and pyuria. There wass a reporrt from the scene of bradycardia, though no documention that I seee, and here in ER there have been no arrythmiass. Patient has received IVF and doese off Rocephin. reports he is largely bacck to himself. Note that ER reported 02 desats earlier but during my visit patient is maintaining sats in high 90s on RA. 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) Physeal fracture of phalanx of toe of left foot Pressure ulcer Buttocks TBI (traumatic brain injury) (Acute) Family History Mother Lung cancer Social History Smoking/Tobacco Use Status: Never Alcohol Intake: never Substance use type: does not use Household members: spouse Number of Children: 2 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; [employer]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 Do you feel safe in your relationship?: Yes Additional Social history: Moved from [place] to [place] in 2017 to be cared for by ( x10 years previously) Meds Home Medications and Allergies Home Medications Medication Instructions Recorded Confirmed Type Lupron Depot (4 month) 30 mg IM .Q4 months 09/25/17 09/13/19 History ascorbic acid (vitamin C) [Vitamin 1,000 mg PO DAILY 09/25/17 09/13/19 History C] furosemide 20 mg PO DAILY tab-cap 09/25/17 09/13/19 History metoprolol succinate 100 mg PO DAILY tab-cap 09/25/17 09/13/19 History calcium carbonate-vitamin D3 500 5 ml PO DAILY ml 12/10/18 09/13/19 History mg calcium-400 unit/5 mL oral liquid denosumab 120 mg/1.7 mL (70 mg/mL) 120 mg SC Q6W 12/10/18 09/13/19 History subcutaneous solution fluticasone propionate 50 1 spray BRIAN DAILY 12/10/18 09/13/19 History mcg/actuation nasal spray,suspension gabapentin 300 mg capsule 600 mg PO TID tab-cap 12/10/18 09/13/19 History lisinopril 5 mg tablet 10 mg PO DAILY #2 tab-cap 12/10/18 09/13/19 History multivitamin 1 tab PO DAILY 12/10/18 09/13/19 History fentanyl 50 mcg/hr transdermal 1 patch TD Q72H 01/31/19 09/13/19 History patch nystatin 1 applic TOPICAL QID 09/13/19 09/13/19 History Allergies Allergy/AdvReac Type Severity Reaction Status Date / Time No Known Drug Allergies Allergy Unverified 09/13/19 14:10 Exam Narrative Exam Narrative: Tmaxx 39.1, 130/51, 70, 19, 98% RA. HEENT AT/NC; neck supple; lungs somewhat diminished but clear; heart RRR; abdomen soft NT; extremities 1 pedal edema; neuro ox 2 1/2 (knows Deonna, intiaLLY SAYS 2008, BUT RECOGNIZES CORRECTION). Knows Trump. Mves all 4s but LEs distal 2/5 (baseline) Results Labs Result diagrams: 09/13/19 15:30 09/13/19 15:30 Labs: Laboratory Results - last 24 hr 09/13/19 09/13/19 09/13/19 14:02 15:30 15:30 WBC RBC Hgb Hct MCV MCH MCHC RDW Plt Count MPV Immature Gran % Neutrophils % Lymphocytes % Monocytes % Eosinophils % Basophils % Absolute Neutrophils Absolute Lymphocytes Absolute Monocytes Absolute Eosinophils Absolute Basophils Sodium 141 Potassium 4.7 Chloride 106 Carbon Dioxide 31.6 Anion Gap 3.4 BUN 26 H Creatinine 1.04 Estimated GFR/1.73 m2 >= 60.00 Glucose 108 H Lactate 0.9 Calcium 8.7 Magnesium 2.1 Total Bilirubin 0.3 AST 20 ALT 21 Alkaline Phosphatase 77 Troponin I < 0.05 Total Protein 6.4 Albumin 2.7 L Urine Color Yellow Urine Clarity Clear Urine pH 6.0 Ur Specific [place] 1.020 Urine Protein Negative Urine Ketones Negative Urine Blood Negative Urine Nitrite Negative Urine Bilirubin Negative Urine Urobilinogen 0.2 Ur Leukocyte Esterase Trace H Urine RBC 0-2 Urine WBC 10-20 H Ur Epithelial Cells Rare Urine Crystals Negative Urine Bacteria Few Urine Casts Negative Urine Mucus Trace Urine Other Few renal Ur Culture Indicated? Yes Urine Glucose Negative 09/13/19 15:30 WBC 7.18 RBC 3.95 L Hgb 12.9 L Hct 39.9 L MCV 101.0 H MCH 32.7 MCHC 32.3 RDW 13.6 Plt Count 201 MPV 9.0 Immature Gran % 0.1 Neutrophils % 81.8 Lymphocytes % 7.4 Monocytes % 8.4 Eosinophils % 2.2 Basophils % 0.1 Absolute Neutrophils 5.87 Absolute Lymphocytes 0.53 L Absolute Monocytes 0.60 Absolute Eosinophils 0.16 Absolute Basophils 0.01 Sodium Potassium Chloride Carbon Dioxide Anion Gap BUN Creatinine Estimated GFR/1.73 m2 Glucose Lactate Calcium Magnesium Total Bilirubin AST ALT Alkaline Phosphatase Troponin I Total Protein Albumin Urine Color Urine Clarity Urine pH Ur Specific [place] Urine Protein Urine Ketones Urine Blood Urine Nitrite Urine Bilirubin Urine Urobilinogen Ur Leukocyte Esterase Urine RBC Urine WBC Ur Epithelial Cells Urine Crystals Urine Bacteria Urine Casts Urine Mucus Urine Other Ur Culture Indicated? Urine Glucose Last Vital Signs Temp 37.2 C 09/13/19 15:16 Pulse 61 09/13/19 17:01 Resp 17 09/13/19 17:10 BP 130/51 L 09/13/19 17:01 Pulse Ox 99 09/13/19 17:10
--- NOTE | 2019-09-13 18:09 | NUR.NOTE ---
1700-pt is now a/ox4, follows all commands appropriatly, speech clear, appropriate, no distress noted. attempted to remove oxygen, noted sao2 96% on room air with sao2 decreasing to 87% when pt closes eyes/sleeps. o2 replaced at 2l/nc and Dr Shipley notified. 1730-dinner tray served pt eating independently with no distress noted.. Nursing Note-
[2019-09-13] MEDS: fentaNYL 75 MCG PATCH TD (18:51)
[2019-09-13] MEDS: Gabapentin 300 MG CAP 600 MG PO (20:40)
[2019-09-13] MEDS: Nystatin POWDER 60 GM JAR TP (20:41)
[2019-09-13] MEDS: Lactated Ringers 1,000 ML 80 ML IV (20:41)
[2019-09-14] VITALS (15 sets, daily range): BP systolic 129–173; BP diastolic 68–85; PULSE 49–127; RESP 17–19; TEMP 36.3–36.8; O2SAT 92–99
[2019-09-14] MEDS: Metoprolol CR 100 MG TABCR PO (08:23)
[2019-09-14] MEDS: Multivitamin TAB 1 TAB PO (08:23)
[2019-09-14] MEDS: Ascorbic Acid 500 MG TAB 1000 MG PO (08:24)
[2019-09-14] MEDS: Lisinopril 5 MG TAB 10 MG PO (08:24)
--- NOTE | 2019-09-14 08:25 | PDOC.CMIN ---
- If Service Date Differs Date of service: 09/14/19 Time of Service: 08:25 Care Management Initial Assess REASON FOR HOSPITALIZATION:: UTI PAST MEDICAL HISTORY/PAST SURGICAL HISTORY:: Medical History . Chronic kidney disease, stage 3. Decubital ulcer (Chronic). Edema (Resolved). Hx of acute renal failure. Hyperlipidemia (Chronic). Hypertension (Chronic). Left foot pain (Resolved). Left rotator cuff tear (Chronic). Lichen sclerosus (Acute). Memory loss (Chronic). Metastatic malignant neoplasm to prostate (Chronic). Mononeuropathy of left lower extremity. Peripheral edema. 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 Physeal fracture of phalanx of toe of left foot. Pressure ulcer. Buttocks. TBI (traumatic brain injury) (Acute) PREVIOUS FUNCTIONAL STATUS/SOCIAL/FAMILY SUPPORTS:: Lester lives with his spouse Lotus in [place], [place] in their own home. They do have a boarder who helps with meals and other tasks around the home. 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 He uses a walker to ambulate; his mobility is very limited due to his neuropathy. He needs assistance with care which his spouse provides. CURRENT FUNCTIONAL STATUS:: Lester was sitting up in a chair when CM met with him. His Lotus was also present and they were both pleasant and cooperative . Lester stated that he has been falling at home. He attributes this latest fall to a probable UTI. Lotus noted that he had become confused and forgot that he needed her assistance to get to the bathroom. Lester states that he feels much better and they both agree that he is mentally clear and back to baseline. ADVANCE DIRECTIVES:: A discussion was held with both Lester and Lotus about Advanced Directives. They shared that they have a blank copy of something like that at home but had only just begun to read and discuss it. CM offered to help them complete one here if they chose to do so. Has patient been provided with information about the portal?: No Did the patient sign up for the portal?: No CODE STATUS:: DNR INSURANCE COVERAGE / FINANCIAL ISSUES:: Medicare and AARP CURRENT HOME/COMMUNITY SERVICES/EQUIPMENT:: FWW,4WW,transport chair, shower bench, grab bars PRIMARY CARE PHYSICIAN:: POTENTIAL DISCHARGE NEEDS:: Follow up with PCP and discharge plan of care PATIENT/FAMILY EDUCATION NEEDS:: Discharge education, limitations and follow up plan of care which should include his spouse. TRANSPORTATION:: via private vehicle with family PLAN:: Lester will be discharged home, possibly with new home health PT. He currently attends OP PT 3 times a week but is not sure yet if he will be able to resume that right away. He will follow up with his PCP and transport with [facility]. CM will continue to support patient, family and discharge planning needs.
[2019-09-14] MEDS: Lactated Ringers 1,000 ML 80 ML IV ×2 (08:30→20:46)
[2019-09-14 08:34] LABS: Absolute Basophil Count 0.02 k/cumm (0.0-0.2); Absolute Eosinophil Count 0.15 k/cumm (0.0-0.7); Absolute Lymphocyte Count 0.98 k/cumm (1.2-3.4); Absolute Monocyte Count 0.44 k/cumm (0.11-0.7); Absolute Neutrophil Count 2.15 k/cumm (1.2-6.7); Basophils % 0.5; HCT 40.2 % (40.0-50.0); Lymphocytes % 26.2; Mean Corp. HGB Concentration 32.3 g/dL (32.0-36.0); Mean Corpuscular Hemoglobin 32.6 pg (27.0-33.0); Mean Corpuscular Volume 100.8 fL (80-95); Mean Platelet Volume 8.5 fL (8.0-11.0); Monocytes % 11.8; Neutrophils % 57.5; Platelet Count 197 x1000/uL (130-400); RBC 3.99 m/cumm (4.50-6.00); RBC Distribution Width 13.6 % (11.8-14.1); White Blood Cell Count 3.74 k/cumm (4.4-10.8)
[2019-09-14 08:41] LABS: Anion Gap 3.5 mmol/L (3-11); BUN 19 mg/dL (7-18); CO2 32.5 mmol/L (21.0-32.0); CREATININE 0.84 mg/dL (0.70-1.30); Calcium 8.6 mg/dL (8.5-10.1); Chloride 105 mmol/L (98-107); Glucose 101 mg/dL (70-100); Magnesium 2.1 mg/dL (1.8-2.4); Potassium 4.8 mmol/L (3.5-5.1); Sodium 141 mmol/L (136-145)
[2019-09-14] MEDS: Fluticasone NASAL SPRAY 16 GM BTL NS (09:20)
[2019-09-14] MEDS: Gabapentin 300 MG CAP 600 MG PO ×3 (09:20→19:48)
--- NOTE | 2019-09-14 10:46 | IN_ITS ---
Date of service: 09/14/19 Time of Service: 10:20 PT Notes Inpatient Physical Therapy Evaluation Date: 09/14/19 Referring Doctor: Dr. Brown PT Orders: PT CONSULT: limited ability to ambulate Precautions: fall Patient Profile/Admitting Diagnosis: Patient admitted 09/13/19 after experiencing confusing and suffering an unwitnessed fall at home. He was diagnosed with UTI and admitted for medical management. 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 He completes an independent exercise program in our outpatient clinic 2x/week. Equipment Owned/DME: FWW. Bilat AFOs, which patient has been unable to utilize for several weeks due to an ulceration on his left foot. He has a scheduled appointment with [facility] next Monday. Subjective: Lester states that he's feeling much better today. He's anxious to return home. Objective: General Observation: Resting in chair with IV in LUE. Mental Status: A&Ox3, although requires assistance from regarding details of history Pain: denies ROM: Right Upper Extremity: WNL Left Upper Extremity: Shoulder flexion limited to approx 30 degrees. Elbow and wrist motion WNL. Right Lower Extremity: WNL Left Lower Extremity: WNL Strength: Right Upper Extremity: WNL Left Upper Extremity: Patient lacks functional shoulder strength. Elbow and wrist motion grossly WNL. Right Lower Extremity: Hip flexion 5/5. Quads 5/5. HS 5/5. Ankle DF 0/5. Ankle PF 0/5. Left Lower Extremity: Hip flexion 5/5. Quads 5/5. HS 5/5. Ankle DF 0/5. Ankle PF 0/5. Sensation: impaired throughout bilat feet Bed Mobility/Transfers: sit->stand: min A stand->sit: supervision Gait: Patient ambulates 25' with FWW and CG. He demonstrates poor foot clearance, with exaggerated hip flexion to allow feet to clear. Relies heavily on FWW for UE support, and requires a single standing rest period with forearms to walker. Balance: Static Sitting: NL Dynamic Sitting: NL Static Standing: fair Dynamic Standing: fair Special Tests: Mobility Limitations Standardized Measure [facility] AM-PAC 6 clicks Basic Mobility Inpatient Short Form: Raw Score: 17 CMS Score: 51% deficit Informed Consent/Education: Patient instructed in purpose of PT consult and plan of care. We reviewed seated exercise program, which patient can complete independently between PT sessions. Assessment: Patient is a 79 year old male referred to physical therapy services with the diagnosis of decreased ability to ambulate. Patient presents with clinical signs and symptoms consistent with diagnosis, with chronic mobility issues accentuated by acute UTI and subsequent fall at home. He currently demonstrates the following impairment level findings: 1. Decreased activity tolerance 2. gait impairments with bilat drop foot 3. High fall risk Impairments are contributing to the following functional limitations: 1. High fall risk 2. decreased activity tolerance Patient is assessed as a Moderate [id number] complexity based on the following: History: 79-year-old male with multiple chronic health conditions and chronic mobility deficits, admitted for management of UTI with subsequent fall at home. Patient has multiple complicated factors, including metastatic prostate cancer, bilateral dropfoot, and a new ulceration on his left foot, preventing him from utilizing his bilateral AFOs. Examination: Functional limitations as noted above Presentation: Evolving Decision Making: Moderate complexity Goals: Goals X1 week 1. Supine-Sit: min A 2. Sit-Supine: min A 3. Sit-Stand : min A 4. Stand-Sit: S 5. Bed-Chair : Supervision with FW W 6. Chair-Bed: Supervision with FW W 7. Gait: Supervision with FW W x50 feet Plan of Care/Treatment Plan: 1x/day, 7 days/week x 1 week. Plan of care has been reviewed with the RADIOPHARMACIST providing the service under Physical Therapy direction. Initiate Physical Therapy intervention for strengthening, bed mobility, transfers, gait, stairs, balance training, use of assistive device. DISCHARGE RECOMMENDATIONS: home TREATMENT CODE/TIME: 10:20-10:45 Ella Gabriel, PT, DPT [facility]
--- NOTE | 2019-09-14 12:52 | PHARADMIT ---
Admission Pharmacy Clinical Review UTI, fall Code Status .DNR Current Weight 92.986 kg Renally Cleared and Narrow Therapeutic Index Meds Crcl ~61 mL/min using adjusted body weight QTc Value / Action Taken QTc 385 BP Control, Fever BP 173/85 afebrile Electrolytes reviewed within normal limits DVT Prophylaxis none Opiate Usage / Scheduled Bowel Regimen Ordered julianna/no Plt/SCr for Heparin / Enoxaparin plt 197 SCr 0.84 INR for Warfarin n/a H/H stable, WBC/Bands h/h 13.0/40.2 WBC 3.74 Antibiotic appropriateness ceftriaxone Cultures and Sensitivities blood cultures pending urine prelim growing enterococcus species Surgical ABX d/c within 24 hr n/a DM control / Insulin Dosing BG 101 none Heart Failure (Check EF%) (TEDDY's, B-Block, Diuretics) lisinopril, metoprolol IV to PO Switch n/a Home Meds Reviewed -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 D Home Meds Not Ordered furosemide Comments -pt has appt this week for Lupron and Xgeva, [facility] wanted to leave orders as pending for now -watch for change in abx as culture results come back
[2019-09-14] MEDS: Nystatin POWDER 60 GM JAR TP ×2 (13:37→19:47)
--- NOTE | 2019-09-14 13:52 | PGE_ITS ---
Date of Service Date of service: 09/14/19 Time of Service: 13:52 Assessment and Plan Assessment and plan (1) UTI (urinary tract infection): Start date: 09/14/19 Start time: 14:00 Status: Acute Assessment and plan: UTI with altered mental status, that has improved since admission. OOB ambulating around room without assist. Telemetry overnight with a 5 beat run of vtach, otherwise sinus reta on telemetry. No chest pain or SOB with episode. Urine culture grew enterococcus species greater than 100,000 colonies, dcd ceftriaxone and started on Cipro 500 mg orally q12 hours. Awaiting susceptibility. PVR and continue to monitor. (2) Hypertension: Start date: 09/14/19 Start time: 14:10 Status: Chronic Assessment and plan: Continue lisinopril and metoprolol (3) Metastatic malignant neoplasm to prostate: Start date: 09/14/19 Start time: 14:12 Status: Chronic Assessment and plan: Currently under treatment for prostate cancer with mets to the bone. Fentanyl patch at 75 mcg. Refusing any further imaging for mets. (4) Bone metastases: Start date: 09/14/19 Start time: 14:12 Status: Acute Assessment and plan: Starting radiation to sacrum for mets to the bone. Follow up with oncology. (5) DVT prophylaxis: Start date: 09/14/19 Start time: 14:13 Status: Acute Assessment and plan: SCD and TEDS, Subjective Subjective Patient reports: feels better Interval history since last seen: present in room. States patient is back to baseline. Urine culture growing enterococcus species. Started on cipro PO q 12 hours. Patient would like to be discharged home tomorrow. Afebrile, wbc 3.74. Recent MRI at [facility], requesting records. Exam Narrative Exam Narrative: Const: Elderly male, sitting up in chair with feet elevated. RA. HEENT AT/NC; neck supple; lungs somewhat diminished but clear; heart sinus arrythmia; abdomen soft NT; extremities 1 pedal edema; neuro baseline AAOx 3 and states baseline mentation. FROM all 4s but LEs distal 2/5 (baseline). Objective Objective Clinical Data: Abnormal lab results 09/13/19 09/13/19 09/13/19 Range/Units 14:02 15:30 15:30 WBC (4.4-10.8) k/cumm RBC 3.95 L (4.50-6.00) m/cumm Hgb 12.9 L (13.5-17.5) g/dL Hct 39.9 L (40.0-50.0) % MCV 101.0 H (80-95) fL Absolute Lymphocytes 0.53 L (1.2-3.4) k/cumm Carbon Dioxide (21.0-32.0) mmol/L BUN 26 H (7-18) mg/dL Glucose 108 H (70-100) mg/dL Albumin 2.7 L (3.4-5.0) g/dL Ur Leukocyte Esterase Trace H (Negative) Urine WBC 10-20 H (0-5) HPF 09/14/19 09/14/19 Range/Units 08:25 08:25 WBC 3.74 L D (4.4-10.8) k/cumm RBC 3.99 L (4.50-6.00) m/cumm Hgb 13.0 L (13.5-17.5) g/dL Hct (40.0-50.0) % MCV 100.8 H (80-95) fL Absolute Lymphocytes 0.98 L (1.2-3.4) k/cumm Carbon Dioxide 32.5 H (21.0-32.0) mmol/L BUN 19 H D (7-18) mg/dL Glucose 101 H (70-100) mg/dL Albumin (3.4-5.0) g/dL Ur Leukocyte Esterase (Negative) Urine WBC (0-5) HPF Vital Signs Temperature 36.6 C 09/14/19 12:49 Temperature Source Tympanic 09/14/19 12:49 Pulse 61 09/14/19 12:49 Pulse Rhythm Regular 09/14/19 08:30 Pulse 76 09/13/19 18:31 Respiratory Rate 17 09/14/19 12:49 Respiratory Effort 09/14/19 08:30 Respiratory Depth Normal 09/14/19 08:30 Respiratory Pattern Bradypnea 09/14/19 08:30 Blood Pressure 164/79 H 09/14/19 12:49 Blood Pressure Mean 64 09/13/19 19:31 Blood Pressure Position Sitting 09/13/19 12:55 Pulse Oximetry 92 L 09/14/19 12:49 Oxygen Delivery Method Room Air 09/14/19 12:49 Oxygen Flow Rate 0 09/14/19 12:49 Pain Level 0 09/14/19 12:49 Comment 09/13/19 19:53 Intake & Output 09/13/19 09/14/19 09/14/19 23:59 11:59 23:59 Intake Total 845.417 / 425.873 6582.333 / 1595.333 Output Total 200 / 200 / Balance 645.417 / 607.748 4039.333 / 1504.333 Weight 92.986 kg Intake: IV 845.417 / 845.417 945.333 / 945.333 Oral 650 / 650 Output: Urine 200 / 200 / Other: Urine Color Light Shira Urine Appearance Clear Comment patient states doesnt feel urge to void Stool Size Moderate Stool Characteristics Soft Formed Voiding Methods Toilet Diaper Laboratory Results WBC 3.74 k/cumm (4.4-10.8) L D 09/14/19 08:25 RBC 3.99 m/cumm (4.50-6.00) L 09/14/19 08:25 Hgb 13.0 g/dL (13.5-17.5) L 09/14/19 08:25 Hct 40.2 % (40.0-50.0) 09/14/19 08:25 MCV 100.8 fL (80-95) H 09/14/19 08:25 MCH 32.6 pg (27.0-33.0) 09/14/19 08:25 MCHC 32.3 g/dL (32.0-36.0) 09/14/19 08:25 RDW 13.6 % (11.8-14.1) 09/14/19 08:25 Plt Count 197 x1000/uL (130-400) 09/14/19 08:25 MPV 8.5 fL (8.0-11.0) 09/14/19 08:25 Immature Gran % 0.0 09/14/19 08:25 Neutrophils % 57.5 09/14/19 08:25 Lymphocytes % 26.2 09/14/19 08:25 Monocytes % 11.8 09/14/19 08:25 Eosinophils % 4.0 09/14/19 08:25 Basophils % 0.5 09/14/19 08:25 Absolute Neutrophils 2.15 k/cumm (1.2-6.7) 09/14/19 08:25 Absolute Lymphocytes 0.98 k/cumm (1.2-3.4) L 09/14/19 08:25 Absolute Monocytes 0.44 k/cumm (0.11-0.7) 09/14/19 08:25 Absolute Eosinophils 0.15 k/cumm (0.0-0.7) 09/14/19 08:25 Absolute Basophils 0.02 k/cumm (0.0-0.2) 09/14/19 08:25 Sodium 141 mmol/L (136-145) 09/14/19 08:25 Potassium 4.8 mmol/L (3.5-5.1) 09/14/19 08:25 Chloride 105 mmol/L (98-107) 09/14/19 08:25 Carbon Dioxide 32.5 mmol/L (21.0-32.0) H 09/14/19 08:25 Anion Gap 3.5 mmol/L (3-11) 09/14/19 08:25 BUN 19 mg/dL (7-18) H D 09/14/19 08:25 Creatinine 0.84 mg/dL (0.70-1.30) 09/14/19 08:25 Estimated GFR/1.73 m2 >= 60.00 (mL/min/1.73m2) 09/14/19 08:25 Glucose 101 mg/dL (70-100) H 09/14/19 08:25 Lactate 0.9 mmol/L (0.6-1.4) 09/13/19 15:30 Calcium 8.6 mg/dL (8.5-10.1) 09/14/19 08:25 Magnesium 2.1 mg/dL (1.8-2.4) 09/14/19 08:25 Total Bilirubin 0.3 mg/dL (0.2-1.0) 09/13/19 15:30 AST 20 U/L (15-37) 09/13/19 15:30 ALT 21 U/L (16-63) 09/13/19 15:30 Alkaline Phosphatase 77 U/L (46-116) 09/13/19 15:30 Troponin I < 0.05 ng/mL (0.00-0.06) 09/13/19 15:30 Total Protein 6.4 g/dL (6.4-8.2) 09/13/19 15:30 Albumin 2.7 g/dL (3.4-5.0) L 09/13/19 15:30 Urine Color Yellow (Yellow) 09/13/19 14:02 Urine Clarity Clear (Clear) 09/13/19 14:02 Urine pH 6.0 (5-8) 09/13/19 14:02 Ur Specific King 1.020 (1.005-1.025) 09/13/19 14:02 Urine Protein Negative mg/dL (Negative) 09/13/19 14:02 Urine Ketones Negative mg/dL (Negative) 09/13/19 14:02 Urine Blood Negative (Negative) 09/13/19 14:02 Urine Nitrite Negative (Negative) 09/13/19 14:02 Urine Bilirubin Negative (Negative) 09/13/19 14:02 Urine Urobilinogen 0.2 EU/dL (Up TO 0.2) 09/13/19 14:02 Ur Leukocyte Esterase Trace (Negative) H 09/13/19 14:02 Urine RBC 0-2 HPF (0-2) 09/13/19 14:02 Urine WBC 10-20 HPF (0-5) H 09/13/19 14:02 Ur Epithelial Cells Rare HPF (Negative) 09/13/19 14:02 Urine Crystals Negative HPF (Negative) 09/13/19 14:02 Urine Bacteria Few HPF (Negative) 09/13/19 14:02 Urine Casts Negative LPF (Negative) 09/13/19 14:02 Urine Mucus Trace (Negative) 09/13/19 14:02 Urine Other Few renal (Negative) 09/13/19 14:02 Ur Culture Indicated? Yes 09/13/19 14:02 Urine Glucose Negative mg/dL (Negative) 09/13/19 14:02
[2019-09-14] MEDS: Ciprofloxacin 500 MG TAB PO (17:51)
[2019-09-15 03:20] VITALS: BP 153/69; PULSE 60; RESP 16; TEMP 36.7; O2SAT 98
[2019-09-15] MEDS: Ciprofloxacin 500 MG TAB PO (06:06)
[2019-09-15] MEDS: Lactated Ringers 1,000 ML 80 ML IV (06:13)
[2019-09-15 06:43] LABS: Abs Immature Grans 0.01 k/cumm (0.0-0.09); Absolute Basophil Count 0.01 k/cumm (0.0-0.2); Absolute Eosinophil Count 0.23 k/cumm (0.0-0.7); Absolute Monocyte Count 0.42 k/cumm (0.11-0.7); Basophils % 0.2; Eosinophils % 5.4; HCT 40.3 % (40.0-50.0); HGB 12.9 g/dL (13.5-17.5); Immature Grans % 0.2; Lymphocytes % 28.1; Mean Corpuscular Hemoglobin 32.1 pg (27.0-33.0); Mean Corpuscular Volume 100.2 fL (80-95); Monocytes % 9.8; Neutrophils % 56.3; Platelet Count 225 x1000/uL (130-400); RBC 4.02 m/cumm (4.50-6.00); RBC Distribution Width 13.5 % (11.8-14.1); White Blood Cell Count 4.27 k/cumm (4.4-10.8)
[2019-09-15 06:59] LABS: Anion Gap 4.2 mmol/L (3-11); BUN 16 mg/dL (7-18); CO2 31.8 mmol/L (21.0-32.0); CREATININE 0.85 mg/dL (0.70-1.30); Calcium 8.5 mg/dL (8.5-10.1); Chloride 106 mmol/L (98-107); Glucose 105 mg/dL (70-100); Magnesium 2.1 mg/dL (1.8-2.4); Potassium 4.6 mmol/L (3.5-5.1); Sodium 142 mmol/L (136-145)
[2019-09-15 07:10] VITALS: BP 162/72; PULSE 64; RESP 18; TEMP 36.6; O2SAT 94
[2019-09-15 08:01] VITALS: PULSE 51
[2019-09-15] MEDS: Nystatin POWDER 60 GM JAR TP (08:21)
[2019-09-15] MEDS: Fluticasone NASAL SPRAY 16 GM BTL NS (08:21)
[2019-09-15] MEDS: Lisinopril 5 MG TAB 10 MG PO (08:22)
[2019-09-15] MEDS: Multivitamin TAB 1 TAB PO (08:23)
[2019-09-15] MEDS: Metoprolol CR 100 MG TABCR PO (08:23)
[2019-09-15] MEDS: Ascorbic Acid 500 MG TAB 1000 MG PO (08:23)
[2019-09-15] MEDS: Gabapentin 300 MG CAP 600 MG PO (08:23)
--- NOTE | 2019-09-15 10:30 | PT.INNT ---
Date of service: 09/15/19 PT Notes pt refused treatment today. He stated that he was being d/c'd to home.
--- NOTE | 2019-09-15 11:12 | DSE_ITS ---
Date of service: 09/15/19 Time of Service: 11:12 DS: Diagnosis Discharge Diagnosis (1) UTI (urinary tract infection): Start date: 09/15/19 Start time: 11:12 Status: Acute Asessment and Plan: UTI with confusion, pyuria. Urine culture grew enterococcous. Started on cipro 500 mg BID. Will need 7 day treatment. PVR with highest amount 270. Prostated cancer with mets and treatment. Radiation to left hip starting tomorrow. (2) Hypertension: Start date: 09/15/19 Start time: 11:14 Status: Chronic Asessment and Plan: Echo for outpatient. (3) Metastatic malignant neoplasm to prostate: Start date: 09/15/19 Start time: 11:17 Status: Chronic Asessment and Plan: currently on treatment for prostate cancer with radiation to bone (4) Bone metastases: Status: Acute (5) DVT prophylaxis: Status: Acute Discharge Plan Disposition Patient Disposition: HOME Condition: Improving Discharge Details Chief Complaint: Fever Clinical Impression: Acute UTI Reason For Visit: UTI,FALL Admit Date/Time: 09/13/19 17:57 Admit Provider: Abisai Kolb Attending Provider: Abisai Kolb Primary Care Provider: Tonny Leslie ED Provider: Salvador Shipley Hospital Course Hospital Course: 79 y.o. male with PMH of metastatic prostate CA to the bone, HTN, hyperlipidemia admitted to [facility] after presenting to the ED with fever, weakness, confusion and pyuria. UA with trace leukocyte Estrase and 12-20 WBC, no leukocytosis, however given fever with pyuria he was started on ceftriaxone and admitted for further management. During the course of treatment patients mentation was back to baseline by next day. He was ambulatory with PT/OT. On telemetry he did have a 5 second beat of SVT while sleeping without chest pain or shortness of breath. Otherwise sinus reta without arrythmias. Urine culture grew enterococcous in which ceftriaxone was dcd and he was started on Cipro PO 500 mg BID, sensitivity to cipro. Blood cultures no growth. He has been afebrile since admission. He feels great. He starts radiation tomorrow. He is being discharged home with a 7 day course of cipro. Recommend an outpatient echo for SVT burst. He does have what appears to be radiation quinn under left pannus of abd.Compound of zinc, a&d and clotrimazole started with improving results. Will send home with script for compound. He denies CP, SOB, N/V/D. Home Meds and New Rx's Prescriptions: New ciprofloxacin HCl 500 mg Tablet 500 mg PO Q12H Qty: 13 RF: 0 zinc oxide 20 % Ointment 1 applic topical TID Qty: 30 RF: 0 clotrimazole 1 % Cream 1 applic topical TID Qty: 30 RF: 0 vits A and D-white pet-lanolin Ointment 1 applic topical TID Qty: 56 RF: 0 Continued ascorbic acid (vitamin C) [Vitamin C] 1,000 MG tablet 1,000 mg PO DAILY RF: 0 metoprolol succinate 100 MG tablet extended release 24 hr 100 mg PO DAILY RF: 0 Lupron Depot (4 month) 30 MG syringe kit 30 mg IM .Q4 months RF: 0 furosemide 20 MG tablet 20 mg PO DAILY RF: 0 multivitamin tablet 1 tab PO DAILY RF: 0 fluticasone propionate 50 mcg/actuation spray,suspension 1 spray BRIAN DAILY RF: 0 Xgeva 120 mg/1.7 mL (70 mg/mL) solution 120 mg SC Q6W RF: 0 lisinopril 5 mg tablet 10 mg PO DAILY Qty: 2 RF: 0 gabapentin 300 mg capsule 600 mg PO TID RF: 0 calcium carbonate-vitamin D3 500 mg calcium- 400 unit/5 mL liquid 5 ml PO DAILY RF: 0 fentanyl 50 mcg/hr patch 72 hour 1 patch TD Q72H RF: 0 Discontinued nystatin 100,000 unit/gram Cream 1 applic TOPICAL QID RF: 0 Discharge Instructions Instructions: Antifungals (On the skin), Urinary Tract Infection in Men (GEN), Antibiotic Resistant Bacteria (GEN), External Beam Radiation Therapy (GEN), Bone Metastasis (GEN) Additional Instructions: Use compound on skin to affected areas 3 times a day. Take cipro twice a day until finished. Eat a yogurt or take probiotic daily Follow up with primary provider in 5 days. Outpatient echo. They will call with time Drink plenty of fluids. Seek medical attention immediately if you have Chest pain, shortness of breath, nausea, vomiting or diarrhea. Stand Alone Forms: Nursing Discharge Form Referrals: Tonny Leslie MD [Primary Care Provider] - Activity:: Activity as Tolerated Equipment/Supplies:: No Equipment Needed Diet:: As Tolerated Discharge Orders Discharge Orders: Discharge Order (Routine); Ordered 09/15/19 Ordered By: Ame Vega Other Ambulatory Orders: US echocardiogram (Routine) Location: None Selected Ordered By: Ame Vega DS: Summary Status at Discharge Functional status at discharge: uses cane/walker Overall status at discharge: patient is back to baseline Mental Status: mental status grossly normal Speech and Movement: speech and movement normal Mood: congruent mood Affect: normal affect Exam Narrative Exam Narrative: Const: Elderly male, sitting up in chair with feet elevated. RA. HEENT AT/NC; neck supple; lungs somewhat diminished but clear; heart sinus arrythmia; abdomen soft NT; extremities 1 pedal edema; neuro baseline AAOx 3 and states baseline mentation. FROM all 4s but LEs distal 2/5 (baseline). Psych Mental Status: mental status grossly normal Speech and Movement: speech and movement normal Mood: congruent mood Affect: normal affect DS: Data Vitals/I&O Vitals and I&O: Vital Signs Temperature 36.6 C 09/15/19 07:10 Temperature Source Tympanic 09/15/19 07:10 Pulse 51 L 09/15/19 08:01 Pulse Rhythm Irregular 09/15/19 10:13 Pulse 76 09/13/19 18:31 Respiratory Rate 18 09/15/19 07:10 Respiratory Effort Non-Labored 09/15/19 10:13 Respiratory Depth Normal 09/15/19 10:13 Respiratory Pattern Normal 09/15/19 10:13 Blood Pressure 162/72 H 09/15/19 07:10 Blood Pressure Mean 64 09/13/19 19:31 Blood Pressure Position Sitting 09/13/19 12:55 Pulse Oximetry 94 L 09/15/19 07:10 Oxygen Delivery Method Room Air 09/15/19 07:10 Oxygen Flow Rate 0 09/15/19 07:10 Pain Level 0 09/15/19 07:10 Comment 09/13/19 19:53 Intake & Output 09/14/19 09/14/19 09/15/19 11:59 23:59 11:59 Intake Total 1595.333 / 2576.666 981.333 / 2576.666 996 / 996 Output Total 91 / 248 157 / 248 266 / 266 Balance 1504.333 / 2328.666 824.333 / 2328.666 730 / 730 Intake: IV 945.333 / 1926.666 981.333 / 1926.666 756 / 756 Oral 650 / 650 240 / 240 Output: Urine 91 / 248 157 / 248 266 / 266 Other: Urine Color Yellow Urine Appearance Clear Clear Urine Odor Normal Comment patient states doesnt feel urge to void void unmeasured, this was mixed with stool Stool Size Moderate Moderate Moderate Stool Characteristics Soft Formed Formed Formed Voiding Methods Toilet Diaper Toilet Diaper Incontinent Diaper Data Completed and Pending Completed studies during hospitalization [Text1]: Exam(s) a CT:CT head wo EXAM: CT HEAD WO CLINICAL HISTORY: MS change, fever, metastatic ca COMPARISON: No exams were available for comparison FINDINGS: The ventricles and sulci are consistent with the patient's age. There are areas of decreased attenuation in the white matter most consistent with small vessel ischemic disease. No acute intracranial hemorrhage, midline shift or mass effect is identified. The ventricles are intact. The basilar cisterns are patent. The visualized paranasal sinuses are clear. The mastoid air cells are well pneumatized. The calvarium is intact. IMPRESSION: No acute intracranial process. The findings were discussed with the Emergency Department on the date of the examination. Labs on day of discharge: Labs from last 24 hours 09/15/19 09/15/19 09/13/19 06:06 06:06 14:02 WBC 4.27 L RBC 4.02 L Hgb 12.9 L Hct 40.3 MCV 100.2 H MCH 32.1 MCHC 32.0 RDW 13.5 Plt Count 225 MPV 9.0 Immature Gran % 0.2 Neutrophils % 56.3 Lymphocytes % 28.1 Monocytes % 9.8 Eosinophils % 5.4 Basophils % 0.2 Absolute Neutrophils 2.40 Absolute Lymphocytes 1.20 Absolute Monocytes 0.42 Absolute Eosinophils 0.23 Absolute Basophils 0.01 Sodium 142 Potassium 4.6 Chloride 106 Carbon Dioxide 31.8 Anion Gap 4.2 BUN 16 Creatinine 0.85 Estimated GFR/1.73 m2 >= 60.00 Glucose 105 H Calcium 8.5 Magnesium 2.1 Urine Color Yellow Urine Clarity Clear Urine pH 6.0 Ur Specific [place] 1.020 Urine Protein Negative Urine Ketones Negative Urine Blood Negative Urine Nitrite Negative Urine Bilirubin Negative Urine Urobilinogen 0.2 Ur Leukocyte Esterase Trace H Urine RBC 0-2 Urine WBC 10-20 H Ur Epithelial Cells Rare Urine Crystals Negative Urine Bacteria Few Urine Casts Negative Urine Mucus Trace Urine Other Few renal Ur Culture Indicated? Yes Urine Glucose Negative Preliminary micro results at discharge 09/13/19 15:30 Blood Culture - Preliminary Blood NO GROWTH 24 HOURS 09/13/19 13:40 Blood Culture - Preliminary Blood NO GROWTH 24 HOURS PFSH Medical History Bone metastases (Acute) Chronic kidney disease, stage 3 Decubital ulcer (Chronic) Edema (Resolved) Hx of acute renal failure Hyperlipidemia (Chronic) Hypertension (Chronic) Left foot pain (Resolved) Left rotator cuff tear (Chronic) Lichen sclerosus (Acute) Memory loss (Chronic) Metastatic malignant neoplasm to prostate (Chronic) Mononeuropathy of left lower extremity Peripheral edema 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
--- NOTE | 2019-09-15 17:12 | PDOC.CMDIS ---
- If Service Date Differs Date of service: 09/15/19 Time of Service: 17:13 LACE Index Scoring Tool - Questions: Length of Stay (in days): 2 Acuity (Admit via E.D.?): Yes Comorbidities: Liver or Renal Disease, Metastatic Solid Tumor E.D. Visits: 2 - Answers: Total Score: 12 Risk of Readmission: High Risk Care Management Discharge Reason for Hospitalization: UTI Discharge Plan: Lester will be discharged home with no new services. He will transport via private vehicle with his . He will follow up with his PCP and Oncology. Patient/Family Education Needs: Discharge plan, limitations, follow up plan and Ask Me Three.
--- NOTE | 2019-09-18 13:15 | PT.INDS ---
Date of service: 09/18/19 Time of Service: 13:15 PT Notes Inpatient Physical Therapy Discharge Summary Dates: 09/18/2019 Dates of Service: 09/14/2019 only This is a clinical summary of care provided on the duration of dates listed above. No charge was made in the completion of this documentation. Referring Doctor: Dr. Brown PT Orders: PT CONSULT: limited ability to ambulate Precautions: fall Patient Profile/Admitting Diagnosis: Patient admitted 09/13/19 after experiencing confusing and suffering an unwitnessed fall at home. He was diagnosed with UTI and admitted for medical management. 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 He completes an independent exercise program in our outpatient clinic 2x/week. Equipment Owned/DME: FWW. Bilat AFOs, which patient has been unable to utilize for several weeks due to an ulceration on his left foot. He has a scheduled appointment with Maria M next Monday. Subjective: NT Objective: General Observation: NT Mental Status: NT Pain: NT ROM: Right Upper Extremity: WNL Left Upper Extremity: Shoulder flexion limited to approx 30 degrees. Elbow and wrist motion WNL. Right Lower Extremity: WNL Left Lower Extremity: WNL Strength: Right Upper Extremity: WNL Left Upper Extremity: Patient lacks functional shoulder strength. Elbow and wrist motion grossly WNL. Right Lower Extremity: Hip flexion 5/5. Quads 5/5. HS 5/5. Ankle DF 0/5. Ankle PF 0/5. Left Lower Extremity: Hip flexion 5/5. Quads 5/5. HS 5/5. Ankle DF 0/5. Ankle PF 0/5. Sensation: impaired throughout bilat feet Bed Mobility/Transfers: sit->stand: min A stand->sit: supervision Gait: Patient ambulates 25' with FWW and CG. He demonstrates poor foot clearance, with exaggerated hip flexion to allow feet to clear. Relies heavily on FWW for UE support, and requires a single standing rest period with forearms to walker. Balance: Static Sitting: NL Dynamic Sitting: NL Static Standing: fair Dynamic Standing: fair Assessment: Patient is a 79 year old male referred to physical therapy services with the diagnosis of decreased ability to ambulate. Patient presents with clinical signs and symptoms consistent with diagnosis, with chronic mobility issues accentuated by acute UTI and subsequent fall at home. He currently demonstrates the following impairment level findings: 1. Decreased activity tolerance 2. gait impairments with bilat drop foot 3. High fall risk Impairments are contributing to the following functional limitations: 1. High fall risk 2. decreased activity tolerance Goals: Goals X1 week 1. Supine-Sit: min A NOT MET 2. Sit-Supine: min A NOT MET 3. Sit-Stand : min A NOT MET 4. Stand-Sit: S NOT MET 5. Bed-Chair : Supervision with FWW NOT MET 6. Chair-Bed: Supervision with FWW NOT MET 7. Gait: Supervision with FW W x50 feet NOT MET DISCHARGE RECOMMENDATIONS: Home TREATMENT CODE/TIME: NC. Thank you very much for this referral. Liliane Morales PT, DPT, CLT [facility]
== END 2019-09-15 13:20 | disposition home or self-care (01) | DRG 690 ==
LOC: ER 19:17 → MS 19:47
PROVIDERS: Internal Medicine; Admitting Provider General Practice; Emergency Provider Emergency Medicine; PCP Internal Medicine; Visit Provider Internal Medicine
DX: N39.0 Urinary tract infection, site not specified (principal); C79.51 Secondary malignant neoplasm of bone; I47.1 Supraventricular tachycardia; B95.2 Enterococcus as the cause of diseases classified elsewhere; W19.XXXA Unspecified fall, initial encounter; T21.02XA Burn of unspecified degree of abdominal wall, initial encounter; Y84.2 Radiological procedure and radiotherapy as the cause of abnormal reaction of the patient, or of later complication, without mention of misadventure at the time of the procedure; C61 Malignant neoplasm of prostate; E78.5 Hyperlipidemia, unspecified; Z66 Do not resuscitate; N18.3 Chronic kidney disease, stage 3 (moderate); I12.9 Hypertensive chronic kidney disease with stage 1 through stage 4 chronic kidney disease, or unspecified chronic kidney disease; G62.0 Drug-induced polyneuropathy; T45.1X5S Adverse effect of antineoplastic and immunosuppressive drugs, sequela; L89.892 Pressure ulcer of other site, stage 2
CPT/HCPCS: 36415; 51701; 80048; 80053; 87040; 87077; 93005; 96361; 96365; 96375; 97162; 99222; 99233; 99239; 99285; 70450; 71046; 81003; 81015; 83605; 83735; 84484; 85025; 87086; 87186; 93010; 99284; J0131; J0696; J3490

== ENCOUNTER 2019-10-21 12:51 | Outpatient (CLI) | payer MEDICARE, SELFPAY ==
[2019-10-21 13:44] LABS: ALT 19 U/L (16-63); AST 23 U/L (15-37); Alkaline Phosphatase 88 U/L (46-116); Anion Gap 3.3 mmol/L (3-11); BUN 20 mg/dL (7-18); Bilirubin, Total 0.3 mg/dL (0.2-1.0); CO2 32.7 mmol/L (21.0-32.0); CREATININE 1.12 mg/dL (0.70-1.30); Calcium 9.1 mg/dL (8.5-10.1); Chloride 106 mmol/L (98-107); Glucose 109 mg/dL (74-106); Potassium 4.2 mmol/L (3.5-5.1); Sodium 142 mmol/L (136-145); Total Protein 6.9 g/dL (6.4-8.2)
[2019-10-21 13:58] LABS: Absolute Basophil Count 0.02 k/cumm (0.0-0.2); Absolute Eosinophil Count 0.15 k/cumm (0.0-0.7); Absolute Lymphocyte Count 0.94 k/cumm (1.2-3.4); Absolute Monocyte Count 0.42 k/cumm (0.11-0.7); Absolute Neutrophil Count 2.42 k/cumm (1.2-6.7); Basophils % 0.5; Eosinophils % 3.8; HCT 42.1 % (40.0-50.0); HGB 13.6 g/dL (13.5-17.5); Lymphocytes % 23.8; Mean Corp. HGB Concentration 32.3 g/dL (32.0-36.0); Mean Corpuscular Volume 99.1 fL (80-95); Mean Platelet Volume 9.2 fL (8.0-11.0); Monocytes % 10.6; Neutrophils % 61.3; Platelet Count 263 x1000/uL (130-400); RBC 4.25 m/cumm (4.50-6.00); White Blood Cell Count 3.95 k/cumm (4.4-10.8)
[2019-10-22 10:30] LABS: PSA, Diagnostic 112.6 ng/mL (0.0-6.5)
[2019-10-25 08:34] LABS: Testosterone, Total <7.0 ng/dL (240-950)
== END 2019-10-21 13:11 ==
PROVIDERS: PCP Internal Medicine; Visit Provider Internal Medicine
DX: C61 Malignant neoplasm of prostate (principal); C79.51 Secondary malignant neoplasm of bone
CPT/HCPCS: 36415; 80053; 84403; 84153; 85025

== ENCOUNTER 2019-11-12 02:32 | Outpatient (CLI) | payer MEDICARE, SELFPAY ==
[2019-11-12 15:37] LABS: Abs Immature Grans 0.01 k/cumm (0.0-0.09); Absolute Basophil Count 0.02 k/cumm (0.0-0.2); Absolute Eosinophil Count 0.09 k/cumm (0.0-0.7); Absolute Lymphocyte Count 0.99 k/cumm (1.2-3.4); Absolute Monocyte Count 0.42 k/cumm (0.11-0.7); Basophils % 0.4; Eosinophils % 1.9; HCT 38.4 % (40.0-50.0); HGB 12.3 g/dL (13.5-17.5); Immature Grans % 0.2 %; Lymphocytes % 20.9; Mean Corpuscular Volume 102.9 fL (80-95); Mean Platelet Volume 8.6 fL (8.0-11.0); Monocytes % 8.9; Neutrophils % 67.7; Platelet Count 231 x1000/uL (130-400); RBC 3.73 m/cumm (4.50-6.00); RBC Distribution Width 16.1 % (11.8-14.1); White Blood Cell Count 4.73 k/cumm (4.4-10.8)
[2019-11-12 15:57] LABS: ALT 24 U/L (16-63); AST 22 U/L (15-37); Albumin 3.2 g/dL (3.4-5.0); Alkaline Phosphatase 88 U/L (46-116); Anion Gap 4.1 mmol/L (3-11); BUN 20 mg/dL (7-18); Bilirubin, Total 0.3 mg/dL (0.2-1.0); CO2 34.9 mmol/L (21.0-32.0); CREATININE 1.05 mg/dL (0.70-1.30); Calcium 9.1 mg/dL (8.5-10.1); Chloride 108 mmol/L (98-107); Glucose 104 mg/dL (74-106); Potassium 4.6 mmol/L (3.5-5.1); Sodium 147 mmol/L (136-145); Total Protein 6.7 g/dL (6.4-8.2)
[2019-11-13 10:18] LABS: PSA, Diagnostic 91.8 ng/mL (0.0-6.5)
[2019-11-15 13:41] LABS: Testosterone, Total <7.0 ng/dL (240-950)
== END 2019-11-12 02:52 ==
PROVIDERS: PCP Internal Medicine; Visit Provider Internal Medicine
DX: C61 Malignant neoplasm of prostate (principal); C79.51 Secondary malignant neoplasm of bone
CPT/HCPCS: 36415; 80053; 84403; 84153; 85025

== ENCOUNTER 2019-12-04 13:17 | Inpatient (IN) | payer MEDICARE, SELFPAY ==
[2019-12-04] VITALS (23 sets, daily range): BP systolic 132–176; BP diastolic 57–83; PULSE 61–80; RESP 9–20; TEMP 36.2–38.6; O2SAT 83–98
--- NOTE | 2019-12-04 13:31 | DI.RAD_ITS ---
EXAM: XR PORTABLE CHEST AP INDICATION: fever, r/o pneumonia. COMPARISON: [place] BONE SCAN WHOLE BODY GRP from 07/23/2019 XR CHEST 2V PA LATERAL from 09/13/2019 TECHNIQUE: 2D digital imaging was performed. FINDINGS: There is poor inspiration. The heart size is within normal limits. There does appear to be an infil trate in the left lung base and possible right basilar infiltrate. There is blunting of the left cost ophrenic angle, which may represent a small pleural effusion. There are sclerotic osseous metastases . IMPRESSION: Basilar infiltrate suspicious for pneumonia.
[2019-12-04] MEDS: ACETAMINOPHEN 1,000 MG/100 ML BTL 400 MG IVPB (13:51)
[2019-12-04] MEDS: Normal Saline 500 ML IV (13:52)
[2019-12-04 14:11] LABS: Ammonia 35 umol/L (11-32)
[2019-12-04 14:16] LABS: Absolute Basophil Count 0.03 k/cumm (0.0-0.2); Absolute Eosinophil Count 0.08 k/cumm (0.0-0.7); Absolute Lymphocyte Count 0.81 k/cumm (1.2-3.4); Absolute Monocyte Count 0.37 k/cumm (0.11-0.7); Absolute Neutrophil Count 2.75 k/cumm (1.2-6.7); Basophils % 0.7; HGB 12.4 g/dL (13.5-17.5); Mean Corp. HGB Concentration 32.6 g/dL (32.0-36.0); Mean Corpuscular Hemoglobin 34.4 pg (27.0-33.0); Mean Corpuscular Volume 105.6 fL (80-95); Mean Platelet Volume 8.9 fL (8.0-11.0); Monocytes % 9.2; Neutrophils % 68.1; Platelet Count 270 x1000/uL (130-400); RBC Distribution Width 20.6 % (11.8-14.1); White Blood Cell Count 4.04 k/cumm (4.4-10.8)
[2019-12-04 14:17] LABS: ALT 28 U/L (16-63); AST 22 U/L (15-37); Albumin 3.1 g/dL (3.4-5.0); Alkaline Phosphatase 84 U/L (46-116); Anion Gap 2.5 mmol/L (3-11); BUN 20 mg/dL (7-18); Bilirubin, Total 0.3 mg/dL (0.2-1.0); CO2 36.5 mmol/L (21.0-32.0); CREATININE 1.39 mg/dL (0.70-1.30); Calcium 8.3 mg/dL (8.5-10.1); Chloride 108 mmol/L (98-107); Estimated GFR 49.42 (mL/min/1.73m2); Glucose 118 mg/dL (74-106); Potassium 5.1 mmol/L (3.5-5.1); Sodium 147 mmol/L (136-145); Total Protein 6.5 g/dL (6.4-8.2)
[2019-12-04 14:28] LABS: Bilirubin Negative (Negative); Blood Negative (Negative); Clarity Clear (Clear); Glucose Negative (Negative); Ketones Negative (Negative); Leukocyte Esterase Negative (Negative); Nitrite Negative (Negative); Urobilinogen 0.2 EU/dL (Up TO 0.2); pH 5.5 (5-8)
[2019-12-04 14:45] LABS: Anisocytosis 2+; Macrocytosis 1+; Microcytosis 1+; Polychromasia Present
[2019-12-04 14:46] LABS: Poikilocytes 1+
[2019-12-04 14:54] LABS: Bacteria Negative HPF (Negative); Epithelial Cells Negative HPF (Negative); WBC Negative HPF (0-5)
[2019-12-04 14:55] LABS: C & S Indicated? No; Casts Negative LPF (Negative); Crystals Moderate Amorphous HPF (Negative); Mucus Moderate (Negative)
--- NOTE | 2019-12-04 15:22 | DI.CT_ITS ---
EXAM: CT HEAD WO CLINICAL HISTORY: ALTERED, KNOWN CANCER WITH METS COMPARISON: CT HEAD WO from 09/13/2019 FINDINGS: There is cerebral atrophy and small vessel ischemic disease consistent with the patient's age. There is no intracranial hemorrhage. There is no midline shift or mass effect. The ventricles are intact . The basilar cisterns are patent. The calvarium is intact. IMPRESSION: No acute intracranial process. The findings were discussed with the Emergency Department on the date of the examination.
--- NOTE | 2019-12-04 15:28 | W.ED.GENAD ---
Discharge Plan Discharge Details Chief Complaint: Fever Clinical Impression: Sepsis, CAP (community acquired pneumonia) Admit Date/Time: 12/04/19 15:36 Admit Provider: Loly Brown Attending Provider: Loly Brown Primary Care Provider: Tonny Leslie ED Provider: Yuniel Gutiérrez Discharge Data Discharge Date/Time-TO BE ENTERED AT DEPARTURE: 12/04/19 17:08 Medical Decision Making This is a 79-year-old male with a past medical history of prostate cancer with metastases to the bones who presents today for evaluation of confusion that started this morning. Patient was noted by to be slightly altered and confused and notably weak. EMS was contacted and patient was brought to the ER for further assessment. Patient is a poor historian in his current state, however denies any significant focal changes of cough, urinary incontinence nausea vomiting or diarrhea. Exam is notably unremarkable aside from mild hypoxemia. Patient was started on supplemental oxygen. Lung sounds were clear. Differential is highest for an infectious etiology. He is mildly febrile here. Flu testing is negative, urinalysis is unremarkable. Chest x-ray shows concerns for basilar infiltrate concerning for pneumonia. Lactate stable. Ammonia level normal, CT scan of the head unremarkable per radiology. Signs and symptoms appear clinically consistent with community-acquired pneumonia. Last admission was greater than 90 days ago. Will be given Rocephin and doxycycline here in the ED. Discussed the case with the hospitalist Dr. Brown and she agrees. I have extensively reviewed the treatment plan with the patient. I have addressed all patient concerns at this time. I have also discussed the plan with the admitting physician and they agree with the current assessment and plan and have agreed to assume responsibility for the patient. All parties demonstrate verbal understanding and agreement with our assessment and plan at this time. Of note after rehydration and starting of antibiotics the patient is acting much more normal and closer to his baseline. FINDINGS: There is poor inspiration. The heart size is within normal limits. There does appear to be an infiltrate in the left lung base and possible right basilar infiltrate. There is blunting of the left costophrenic angle, which may represent a small pleural effusion. There are sclerotic osseous metastases. IMPRESSION: Basilar infiltrate suspicious for pneumonia. FINDINGS: There is cerebral atrophy and small vessel ischemic disease consistent with the patient's age. There is no intracranial hemorrhage. There is no midline shift or mass effect. The ventricles are intact. The basilar cisterns are patent. The calvarium is intact. IMPRESSION: No acute intracranial process. The findings were discussed with the Emergency Department on the date of the examination. HPI General Date/Time Provider Initiated Documentation: 12/04/19 13:24. HPI Narrative: This is a 79-year-old male with a past medical history of metastatic prostate cancer with mets to the bones, who is currently on a new experimental medication Lynparza, who presents today for altered mental status. states that normally he is highly functional, he has been doing well however this morning she noted that he was confused, and extremely weak. He has had a mild cough for the last day. She denies any fevers however the patient was chilled today. Patient currently denies any chest pain shortness of breath headache, neck pain, nausea vomiting or diarrhea. and patient deny any recent falls or trauma to the head. No other complaints at this time. No other modifying factors. Related Data Home Medications Medication Instructions Recorded Confirmed Lupron Depot (4 month) 30 mg IM .Q4 months 09/25/17 12/04/19 ascorbic acid (vitamin C) [Vitamin 1,000 mg PO DAILY 09/25/17 12/04/19 C] furosemide 20 mg PO DAILY tab-cap 09/25/17 12/04/19 metoprolol succinate 100 mg PO DAILY tab-cap 09/25/17 12/04/19 calcium carbonate-vitamin D3 500 5 ml PO DAILY ml 12/10/18 12/04/19 mg calcium-400 unit/5 mL oral liquid denosumab 120 mg/1.7 mL (70 mg/mL) 120 mg SC Q6W 12/10/18 12/04/19 subcutaneous solution fluticasone propionate 50 1 spray BRIAN DAILY 12/10/18 12/04/19 mcg/actuation nasal spray,suspension gabapentin 300 mg capsule 600 mg PO TID tab-cap 12/10/18 12/04/19 lisinopril 5 mg tablet 10 mg PO DAILY #2 tab-cap 12/10/18 12/04/19 multivitamin 1 tab PO DAILY 12/10/18 12/04/19 fentanyl 50 mcg/hr transdermal 1 patch TD Q72H 01/31/19 12/04/19 patch clotrimazole 1 applic TOPICAL TID #30 gm 09/15/19 12/04/19 vits A and D-white pet-lanolin 1 applic TOPICAL TID #56 gm 09/15/19 12/04/19 zinc oxide 1 applic TOPICAL TID #30 gm 09/15/19 12/04/19 olaparib [Lynparza] 150 mg PO BID 12/04/19 12/04/19 Previous Rx's Medication Instructions Recorded clotrimazole 1 applic TOPICAL TID #30 gm 09/15/19 vits A and D-white pet-lanolin 1 applic TOPICAL TID #56 gm 09/15/19 zinc oxide 1 applic TOPICAL TID #30 gm 09/15/19 Allergies Allergy/AdvReac Type Severity Reaction Status Date / Time No Known Drug Allergies Allergy Unverified 12/04/19 13:52 General Stated Complaint: Fever BENNY: 2 Review of Systems All systems reviewed & are unremarkable except as noted in HPI and below PFSH Social History Smoking/Tobacco Use Status: Never Alcohol Intake: never Drug use: Never Substance use type: does not use Household members: spouse Number of Children: 2 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 3.ENT: Atraumatic external nose and ears. Moist MM. Neck: Symmetric, trachea midline, No thyromegaly. 4.CVS: +S1/S2, No murmurs or gallops. Peripheral pulses 2+ and equal in all extremities. Brisk capillary refill in all extremities. 5.RESP: Unlabored respiratory effort. Clear to auscultation bilaterally. No wheezes rales or rhonchi 6.GI: Soft, Nontender/Nondistended, No hepatosplenomegaly. No guarding or rebound. 7.MSK: Normocephalic/Atraumatic, Extremities w/o deformity or ttp No cyanosis or clubbing, Normal movement of all extremities 8.Skin: Warm, Dry. No rashes or lesions. 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 Sensation grossly intact, no focal neurologic deficits. 10.Psych: (AAO) x1. Responds to and follows all commands however slightly confused Course Vital Signs Vital signs: Vital Signs Temperature 38.6 C H 12/04/19 13:15 Pulse 80 12/04/19 13:15 Respiratory Rate 13 12/04/19 13:15 Blood Pressure 155/74 H 12/04/19 13:15 Pulse Oximetry 90 L 12/04/19 13:15 Temperature 38.6 C H 12/04/19 13:15 Temperature Source Skin 12/04/19 13:15 Pulse 80 12/04/19 13:15 Respiratory Rate 13 12/04/19 13:15 Respiratory Effort Non-Labored 12/04/19 13:21 Blood Pressure 155/74 H 12/04/19 13:15 Blood Pressure Position Supine 12/04/19 13:15 Pulse Oximetry 83 L 12/04/19 14:31 Oxygen Delivery Method Room Air 12/04/19 14:31 Oxygen Flow Rate 0 12/04/19 14:31 Lab/Test Results Lab/Test Results: 12/04/19 14:45 Blood Blood Culture - Pending 12/04/19 13:40 Nasopharynx Influenza Types A,B Antigen - Final 12/04/19 13:25 Blood Blood Culture - Pending Laboratory Tests Range/Units 12/04/19 12/04/19 12/04/19 13:25 13:25 13:25 WBC (4.4-10.8) k/cumm RBC (4.50-6.00) m/cumm Hgb (13.5-17.5) g/dL Hct (40.0-50.0) % MCV (80-95) fL MCH (27.0-33.0) pg MCHC (32.0-36.0) g/dL RDW (11.8-14.1) % Plt Count (130-400) x1000/uL MPV (8.0-11.0) fL Immature Gran % % Neutrophils % Lymphocytes % Monocytes % Eosinophils % Basophils % Absolute Neutrophils (1.2-6.7) k/cumm Absolute Lymphocytes (1.2-3.4) k/cumm Absolute Monocytes (0.11-0.7) k/cumm Absolute Eosinophils (0.0-0.7) k/cumm Absolute Basophils (0.0-0.2) k/cumm RBC Morphology Polychromasia Poikilocytosis Anisocytosis Microcytosis Macrocytosis Sodium (136-145) mmol/L 147 H Potassium (3.5-5.1) mmol/L 5.1 Chloride (98-107) mmol/L 108 H Carbon Dioxide (21.0-32.0) mmol/L 36.5 H Anion Gap (3-11) mmol/L 2.5 L BUN (7-18) mg/dL 20 H Creatinine (0.70-1.30) mg/dL 1.39 H Estimated GFR/1.73 m2 (mL/min/1.73m2) 49.42 Glucose (74-106) mg/dL 118 H Lactate (0.6-1.4) mmol/L 1.0 Calcium (8.5-10.1) mg/dL 8.3 L Total Bilirubin (0.2-1.0) mg/dL 0.3 AST (15-37) U/L 22 ALT (16-63) U/L 28 Alkaline Phosphatase (46-116) U/L 84 Ammonia (11-32) umol/L 35 H Total Protein (6.4-8.2) g/dL 6.5 Albumin (3.4-5.0) g/dL 3.1 L Urine Color (Yellow) Urine Clarity (Clear) Urine pH (5-8) Ur Specific [place] (1.005-1.025) Urine Protein (Negative) mg/dL Urine Ketones (Negative) mg/dL Urine Blood (Negative) Urine Nitrite (Negative) Urine Bilirubin (Negative) Urine Urobilinogen (Up TO 0.2) EU/dL Ur Leukocyte Esterase (Negative) Urine RBC (0-2) HPF Urine WBC (0-5) HPF Ur Epithelial Cells (Negative) HPF Urine Crystals (Negative) HPF Urine Bacteria (Negative) HPF Urine Casts (Negative) LPF Urine Mucus (Negative) Urine Other (Negative) Ur Culture Indicated? Urine Glucose (Negative) mg/dL Range/Units 12/04/19 12/04/19 13:25 13:40 WBC (4.4-10.8) k/cumm 4.04 L RBC (4.50-6.00) m/cumm 3.60 L Hgb (13.5-17.5) g/dL 12.4 L Hct (40.0-50.0) % 38.0 L MCV (80-95) fL 105.6 H MCH (27.0-33.0) pg 34.4 H MCHC (32.0-36.0) g/dL 32.6 RDW (11.8-14.1) % 20.6 H Plt Count (130-400) x1000/uL 270 MPV (8.0-11.0) fL 8.9 Immature Gran % % 0.0 Neutrophils % 68.1 Lymphocytes % 20.0 Monocytes % 9.2 Eosinophils % 2.0 Basophils % 0.7 Absolute Neutrophils (1.2-6.7) k/cumm 2.75 Absolute Lymphocytes (1.2-3.4) k/cumm 0.81 L Absolute Monocytes (0.11-0.7) k/cumm 0.37 Absolute Eosinophils (0.0-0.7) k/cumm 0.08 Absolute Basophils (0.0-0.2) k/cumm 0.03 RBC Morphology See below Polychromasia Present Poikilocytosis 1+ Anisocytosis 2+ Microcytosis 1+ Macrocytosis 1+ Sodium (136-145) mmol/L Potassium (3.5-5.1) mmol/L Chloride (98-107) mmol/L Carbon Dioxide (21.0-32.0) mmol/L Anion Gap (3-11) mmol/L BUN (7-18) mg/dL Creatinine (0.70-1.30) mg/dL Estimated GFR/1.73 m2 (mL/min/1.73m2) Glucose (74-106) mg/dL Lactate (0.6-1.4) mmol/L Calcium (8.5-10.1) mg/dL Total Bilirubin (0.2-1.0) mg/dL AST (15-37) U/L ALT (16-63) U/L Alkaline Phosphatase (46-116) U/L Ammonia (11-32) umol/L Total Protein (6.4-8.2) g/dL Albumin (3.4-5.0) g/dL Urine Color (Yellow) Yellow Urine Clarity (Clear) Clear Urine pH (5-8) 5.5 Ur Specific [place] (1.005-1.025) 1.020 Urine Protein (Negative) mg/dL 30 H Urine Ketones (Negative) mg/dL Negative Urine Blood (Negative) Negative Urine Nitrite (Negative) Negative Urine Bilirubin (Negative) Negative Urine Urobilinogen (Up TO 0.2) EU/dL 0.2 Ur Leukocyte Esterase (Negative) Negative Urine RBC (0-2) HPF 3-5 H Urine WBC (0-5) HPF Negative Ur Epithelial Cells (Negative) HPF Negative Urine Crystals (Negative) HPF Moderate amorphous Urine Bacteria (Negative) HPF Negative Urine Casts (Negative) LPF Negative Urine Mucus (Negative) Moderate Urine Other (Negative) Ur Culture Indicated? No Urine Glucose (Negative) mg/dL Negative
[2019-12-04] MEDS: cefTRIAXone 2 GM/50 ML BAG IVPB (15:40)
[2019-12-04] MEDS: DOXYCYCLINE 100 MG in Normal Saline 100 ML IVPB (16:17)
--- NOTE | 2019-12-04 16:58 | NUR.NOTE ---
patient reports feeling better than earlier. Nursing Note:
--- NOTE | 2019-12-04 17:03 | NUR.NOTE ---
patient report given to Cari to room 228. Nursing Note:
--- NOTE | 2019-12-04 17:38 | HPE_ITS ---
Date of service: 12/04/19 Time of Service: 17:38 Assessment and Plan Assessment and plan (1) Sepsis: Status: Acute Assessment and plan: As evidenced by fever, encephalopathy, AWILDA. Due to pneumonia, POA. Blood and sputum cultures ordered. Continue empiric doxycycline/ceftriaxone started in ED> (2) CAP (community acquired pneumonia): Status: Acute Assessment and plan: with hypoxia. Treat with above abx, nebs. Wean O2 as tolerated. ?component of pulmonary toxicity due to Lynparza. (3) AWILDA (acute kidney injury): Status: Acute Assessment and plan: Clinically dehydrated. Will hydrate with gentle half NS overnight. Hold lasix and cash-i. (4) Toxic metabolic encephalopathy: Status: Resolved Assessment and plan: Due to above septic process. Already resolved. Monitor mental status. (5) Dehydration: Status: Resolved Assessment and plan: As above (6) Metastatic malignant neoplasm to prostate: Status: Chronic Assessment and plan: As above - hold lynparza (7) DVT prophylaxis: Status: Acute Assessment and plan: Heparin SC. TEDs, SCDs. (8) Discharge planning issues: Status: Acute Assessment and plan: DNR/DNI PT consult Palliative care consult History of Present Illness History of Present Illness Chief Complaint: confusion Narrative: Mr Adrian is a 79 year old male with PMHx of metastatic prostate cancer with mets to the bone, on exgeva, lynparza, and lupron, as well as hypertension, hyperlipidemia, and chronic memory loss, who was found to be still asleep at noon this morning, unusual for him, confused on attempts to wake him up, and febrile. The patient's called 911. The patient initially was non-cooperative with going to the hospital, but did finally agree. In the ED, he was febrile to 38.6 and hypoxic to 84% on room air, requiring 3-4L of O2 to saturate above 90%. He was indeed confused. His CT of the head was negative. His CXR revealed bibasilar pneumonia. He was initiated on doxycycline and ceftriaxone, as well as IVF. He already feels better and is back to his baseline mental status. He endorses a cough for 1 week, productive of clear sputum. He denies runny nose or sore throat. He is flu A negative. Review of Systems Narrative: 12 systems reviewed. Pertinent positives and negatives are as per HPI. Additionally, no reports of chest pain, shortness of breath, nausea. His chronic wounds on his buttocks have been healing well, per , who has been putting barrier cream on it. 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 Do you feel safe at home: Yes Do you feel safe in your relationship?: Yes Additional Social history: Moved from [place] to [place] in 2017 to be cared for by ( x10 years previously) Meds Home Medications and Allergies Home Medications Medication Instructions Recorded Confirmed Type Lupron Depot (4 month) 30 mg IM .Q4 months 09/25/17 12/04/19 History ascorbic acid (vitamin C) [Vitamin 1,000 mg PO DAILY 09/25/17 12/04/19 History C] furosemide 20 mg PO DAILY tab-cap 09/25/17 12/04/19 History metoprolol succinate 100 mg PO DAILY tab-cap 09/25/17 12/04/19 History calcium carbonate-vitamin D3 500 5 ml PO DAILY ml 12/10/18 12/04/19 History mg calcium-400 unit/5 mL oral liquid denosumab 120 mg/1.7 mL (70 mg/mL) 120 mg SC Q6W 12/10/18 12/04/19 History subcutaneous solution fluticasone propionate 50 1 spray BRIAN DAILY 12/10/18 12/04/19 History mcg/actuation nasal spray,suspension gabapentin 300 mg capsule 600 mg PO TID tab-cap 12/10/18 12/04/19 History lisinopril 5 mg tablet 10 mg PO DAILY #2 tab-cap 12/10/18 12/04/19 History multivitamin 1 tab PO DAILY 12/10/18 12/04/19 History fentanyl 50 mcg/hr transdermal 1 patch TD Q72H 01/31/19 12/04/19 History patch clotrimazole 1 applic TOPICAL TID #30 gm 09/15/19 12/04/19 Rx vits A and D-white pet-lanolin 1 applic TOPICAL TID #56 gm 09/15/19 12/04/19 Rx zinc oxide 1 applic TOPICAL TID #30 gm 09/15/19 12/04/19 Rx olaparib [Lynparza] 150 mg PO BID 12/04/19 12/04/19 History Allergies Allergy/AdvReac Type Severity Reaction Status Date / Time No Known Drug Allergies Allergy Unverified 12/04/19 13:52 Exam Narrative Exam Narrative: General: Very pleasant obese male, sitting up at the side of the bed, A&OX3, no shortness of breath/increased work of breathin g/tachypnea noted on 3L of O2 Neurological: A&Ox3, no focal deficits Psychiatric: Appropriate speech pattern/content Skin: BLE with chronic venous stasis dermatitis and question of mild cellulitis - this is not clear. [place] area does look mildly erythematous - mild fungal dermatitis HEENT: Well healed scar on forehead, otherwise atraumatic/normocephalic, EOMI, dry MM, clear oropharynx, no submandibular or cervical lymphadenopathy, no goiter or JVD Cardiovascular: RRR, no m/r/g Lungs: very quiet expiratory wheezing B Gastrointestinal: abdomen obese, soft, nontender, nondistended Genitourinary: deferred Extremities: 1+ BLE edema, chronic venous stasis dermatitis with question of mild erythema c/w beginnings of cellulitis Results Imaging Additional studies: CXR: Basilar infiltrate suspicious for pneumonia. CT head without contrast: No acute intracranial process. Labs Result diagrams: 12/04/19 13:25 12/04/19 13:25 Labs: Laboratory Results - last 24 hr 12/04/19 12/04/19 12/04/19 13:25 13:25 13:25 WBC RBC Hgb Hct MCV MCH MCHC RDW Plt Count MPV Immature Gran % Neutrophils % Lymphocytes % Monocytes % Eosinophils % Basophils % Absolute Neutrophils Absolute Lymphocytes Absolute Monocytes Absolute Eosinophils Absolute Basophils RBC Morphology Polychromasia Poikilocytosis Anisocytosis Microcytosis Macrocytosis Sodium 147 H Potassium 5.1 Chloride 108 H Carbon Dioxide 36.5 H Anion Gap 2.5 L BUN 20 H Creatinine 1.39 H Estimated GFR/1.73 m2 49.42 Glucose 118 H Lactate 1.0 Calcium 8.3 L Total Bilirubin 0.3 AST 22 ALT 28 Alkaline Phosphatase 84 Ammonia 35 H Total Protein 6.5 Albumin 3.1 L Urine Color Urine Clarity Urine pH Ur Specific [place] Urine Protein Urine Ketones Urine Blood Urine Nitrite Urine Bilirubin Urine Urobilinogen Ur Leukocyte Esterase Urine RBC Urine WBC Ur Epithelial Cells Urine Crystals Urine Bacteria Urine Casts Urine Mucus Urine Other Ur Culture Indicated? Urine Glucose 12/04/19 12/04/19 13:25 13:40 WBC 4.04 L RBC 3.60 L Hgb 12.4 L Hct 38.0 L MCV 105.6 H MCH 34.4 H MCHC 32.6 RDW 20.6 H Plt Count 270 MPV 8.9 Immature Gran % 0.0 Neutrophils % 68.1 Lymphocytes % 20.0 Monocytes % 9.2 Eosinophils % 2.0 Basophils % 0.7 Absolute Neutrophils 2.75 Absolute Lymphocytes 0.81 L Absolute Monocytes 0.37 Absolute Eosinophils 0.08 Absolute Basophils 0.03 RBC Morphology See below Polychromasia Present Poikilocytosis 1+ Anisocytosis 2+ Microcytosis 1+ Macrocytosis 1+ Sodium Potassium Chloride Carbon Dioxide Anion Gap BUN Creatinine Estimated GFR/1.73 m2 Glucose Lactate Calcium Total Bilirubin AST ALT Alkaline Phosphatase Ammonia Total Protein Albumin Urine Color Yellow Urine Clarity Clear Urine pH 5.5 Ur Specific [place] 1.020 Urine Protein 30 H Urine Ketones Negative Urine Blood Negative Urine Nitrite Negative Urine Bilirubin Negative Urine Urobilinogen 0.2 Ur Leukocyte Esterase Negative Urine RBC 3-5 H Urine WBC Negative Ur Epithelial Cells Negative Urine Crystals Moderate amorphous Urine Bacteria Negative Urine Casts Negative Urine Mucus Moderate Urine Other Ur Culture Indicated? No Urine Glucose Negative Last Vital Signs Temp 36.5 C 12/04/19 16:58 Pulse 78 12/04/19 16:58 Resp 16 12/04/19 16:58 BP 132/57 L 12/04/19 16:58 Pulse Ox 97 12/04/19 16:58
[2019-12-04] MEDS: Gabapentin 300 MG CAP 600 MG PO (20:33)
[2019-12-04] MEDS: guaiFENesin 600 MG TABCR PO (20:34)
[2019-12-04] MEDS: fentaNYL 50 MCG PATCH TD (20:34)
[2019-12-04] MEDS: Heparin 5,000 UNITS/ML VIAL 5000 UNITS SC (20:43)
[2019-12-04] MEDS: Patch Removal 1 EACH TP (20:47)
[2019-12-05] VITALS (16 sets, daily range): BP systolic 168–178; BP diastolic 76–100; PULSE 57–68; RESP 14–20; TEMP 36.8–37.2; O2SAT 85–98
[2019-12-05] MEDS: SODIUM CHLORIDE 0.45% 1,000 ML 75 ML IV (00:26)
[2019-12-05] MEDS: DOXYCYCLINE 100 MG in Normal Saline 100 ML IVPB ×2 (06:25→18:32)
[2019-12-05] MEDS: Heparin 5,000 UNITS/ML VIAL 5000 UNITS SC ×2 (06:29→14:59)
[2019-12-05 07:04] LABS: Absolute Basophil Count 0.03 k/cumm (0.0-0.2); Absolute Eosinophil Count 0.08 k/cumm (0.0-0.7); Absolute Lymphocyte Count 0.68 k/cumm (1.2-3.4); Absolute Monocyte Count 0.35 k/cumm (0.11-0.7); Absolute Neutrophil Count 2.07 k/cumm (1.2-6.7); Basophils % 0.9; Eosinophils % 2.5; HCT 35.1 % (40.0-50.0); HGB 10.9 g/dL (13.5-17.5); Lymphocytes % 21.2; Mean Corp. HGB Concentration 31.1 g/dL (32.0-36.0); Mean Corpuscular Hemoglobin 33.4 pg (27.0-33.0); Mean Corpuscular Volume 107.7 fL (80-95); Mean Platelet Volume 8.9 fL (8.0-11.0); Monocytes % 10.9; Neutrophils % 64.5; Platelet Count 225 x1000/uL (130-400); RBC 3.26 m/cumm (4.50-6.00); RBC Distribution Width 20.4 % (11.8-14.1); White Blood Cell Count 3.21 k/cumm (4.4-10.8)
[2019-12-05 07:24] LABS: Anion Gap 3.7 mmol/L (3-11); BUN 21 mg/dL (7-18); CO2 34.3 mmol/L (21.0-32.0); CREATININE 1.09 mg/dL (0.70-1.30); Calcium 7.7 mg/dL (8.5-10.1); Chloride 107 mmol/L (98-107); Glucose 120 mg/dL (74-106); Magnesium 2.3 mg/dL (1.8-2.4); Potassium 4.3 mmol/L (3.5-5.1); Sodium 145 mmol/L (136-145)
[2019-12-05 07:36] LABS: Diff Comment RBC Morph Reviewed
[2019-12-05 07:37] LABS: Anisocytosis 3+; Basophilic Stippling Present; Macrocytosis 2+; Polychromasia Present
[2019-12-05] MEDS: Ascorbic Acid 500 MG TAB 1000 MG PO (10:06)
[2019-12-05] MEDS: Gabapentin 300 MG CAP 600 MG PO ×3 (10:08→19:09)
[2019-12-05] MEDS: Metoprolol CR 100 MG TABCR PO (10:08)
[2019-12-05] MEDS: Multivitamin TAB 1 TAB PO (10:08)
[2019-12-05] MEDS: guaiFENesin 600 MG TABCR PO ×2 (10:08→19:09)
[2019-12-05] MEDS: Fluticasone NASAL SPRAY 16 GM BTL NS (10:09)
--- NOTE | 2019-12-05 10:51 | PDOC.CMIN ---
- If Service Date Differs Date of service: 12/05/19 Time of Service: 10:51 Care Management Initial Assess REASON FOR HOSPITALIZATION:: sepsis PAST MEDICAL HISTORY/PAST SURGICAL HISTORY:: Prostate cancer, HTN, hyperlipidemia, acute renal failure and chronic kidney disease stage 3, peptic ulcer, neuropathy, peripheal edema, memory loss, TBI. PREVIOUS FUNCTIONAL STATUS/SOCIAL/FAMILY SUPPORTS:: Lester lives with his spouse in [place], [place] in a single family home. They do have a boarder who helps with meals and other tasks around the home. 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 He uses a walker to ambulate. His mobility is very limited due to his neuropathy. He needs assistance with care which his spouse provides. CURRENT FUNCTIONAL STATUS:: Lester was sitting up in a chair visiting with his when CM met with him. He was very pleasant and engaged readily in conversation, Lester stated that he hopes to be able to go home later today. He also stated that he is feeling much better than when he was admitted like night and day. Lester is afebrile this morning and his oxygen saturation levels are in the mid to upper 90s on room air. ADVANCE DIRECTIVES:: None on file Has patient been provided with information about the portal?: Yes Did the patient sign up for the portal?: No CODE STATUS:: DNR/DNI INSURANCE COVERAGE / FINANCIAL ISSUES:: Medicare. AARP CURRENT HOME/COMMUNITY SERVICES/EQUIPMENT:: FWW, 4WW, transport chair, shower bench and grab bars PRIMARY CARE PHYSICIAN:: Dr. Leslie POTENTIAL DISCHARGE NEEDS:: Follow up with PCP and discharge plan of care PATIENT/FAMILY EDUCATION NEEDS:: Discharge and follow up plans, limitations, Ask Me Three TRANSPORTATION:: via private vehicle with PLAN:: Lester will likely be discharged with no new services. He will foolow up with his PCP and discharge plan of care. CM will continue to support patient, family and discharge planning needs.
--- NOTE | 2019-12-05 11:44 | W.NUTCONSULT ---
Date of service: 12/05/19 Time of Service: 11:44 Nutritional Consult ASSESSMENT: 79 year old male with metastatic prostate cancer with mets to bone admitted with sepsis, PNA. Following heart healthy diet with 100% meal completion. Not considered at nutritional risk. MONITORING AND EVALUATION: po intake, weight, labs Time Spent in Nutritional Counseling and Treatment: 0 time spent face to face
[2019-12-05] MEDS: cefTRIAXone 1 GM/50 ML BAG IVPB (14:59)
--- NOTE | 2019-12-05 16:53 | PT.INIE ---
PT Notes Visit Reasons: SEPSIS DUE TO CAP WITH HYPOXIA,TOXIC METABOLIC ENC Inpatient Physical Therapy Evaluation Date: 12/05/2019 Referring Doctor: Dr. Brown PT Orders: PT CONSULT: Limited ability to ambulate Precautions: Contact Patient Profile/Admitting Diagnosis: Patient admitted from ER after demonstrating weakness and confusion at home. He was diagnosed with sepsis secondary to pneumonia, acute kidney injury, and toxic metabolic encephalopathy. PMHX: Prostate cancer, HTN, hyperlipidemia, acute renal failure and chronic kidney disease stage 3, peptic ulcer, neuropathy, peripheal edema, memory loss, TBI. Bilateral dropfoot Social History/Home Situation: Patient lives with his Lotus, who assists with his care. He completes an independent exercise program in our outpatient clinic 2x/week. He typically ambulates short distances with FW W, typically 75-100 feet at a time. Equipment Owned/DME: FWW. Bilat AFOs, which patient has been unable to utilize due to an ulceration on his left foot. Subjective: Lester states that he's feeling back to normal. He's anxious to return home. Nursing requests that we check patient's oxygen saturation during ambulation. Objective: General Observation: Resting in chair with IV in RUE, 1 L supplemental oxygen via nasal cannula. Mental Status: A&Ox3 Pain: denies ROM: Right Upper Extremity: WNL Left Upper Extremity: Shoulder flexion limited to approx 30 degrees. Elbow and wrist motion WNL. Right Lower Extremity: WNL Left Lower Extremity: WNL Strength: Right Upper Extremity: WNL Left Upper Extremity: Patient lacks functional shoulder strength. Elbow and wrist motion grossly WNL. Right Lower Extremity: Hip flexion 5/5. Quads 5/5. HS 5/5. Ankle DF 0/5. Ankle PF 0/5. Left Lower Extremity: Hip flexion 5/5. Quads 5/5. HS 5/5. Ankle DF 0/5. Ankle PF 0/5. Sensation: impaired throughout bilat feet Bed Mobility/Transfers: sit->stand: CGA stand->sit: CGA Gait: Patient ambulates 40' with FWW and CG. He demonstrates poor foot clearance, with exaggerated hip flexion to allow feet to clear. Relies heavily on FWW for UE support, and requires cues for management of FW W. SaO2 was monitored throughout ambulation. At rest SaO2 is 96% on 1 LPM supplemental oxygen. After 20 feet of ambulation, patient desaturates to 86%, and quickly re-saturates with pursed lip breathing. After an additional 30 feet, he again desaturates to 84%. Resting back in chair, he rapidly returns to 98%. Balance: Static Sitting: Good Dynamic Sitting: Fair Static Standing: Fair Dynamic Standing: Poor Special Tests: Mobility Limitations Standardized Measure [facility] AM-PAC 6 clicks Basic Mobility Inpatient Short Form: Raw Score: 17 CMS Score: 51% deficit Informed Consent/Education: Patient instructed in purpose of PT consult and plan of care. We reviewed seated exercise program, which patient can complete independently between PT sessions. Assessment: Patient is a 79 year old male referred to physical therapy services with the diagnosis of decreased ability to ambulate. Patient presents with clinical signs and symptoms consistent with diagnosis, with chronic mobility issues accentuated by acute medical issues. He currently demonstrates the following impairment level findings: 1. Decreased activity tolerance 2. gait impairments with bilat drop foot 3. High fall risk 4. Oxygen desaturation with ambulation Impairments are contributing to the following functional limitations: 1. High fall risk 2. decreased activity tolerance Patient is assessed as a Moderate [id number] complexity based on the following: History: 79-year-old male with multiple chronic health conditions and chronic mobility deficits, admitted for management of sepsis due to pneumonia with AWILDA and toxic metabolic encephalopathy. Patient has multiple complicated factors, including metastatic prostate cancer, bilateral dropfoot, and poor tolerance to AFOs due to skin breakdown. Examination: Functional limitations as noted above Presentation: Evolving Decision Making: Moderate complexity Goals: Goals X1 week 1. Supine-Sit: min A 2. Sit-Supine: min A 3. Sit-Stand : Supervision 4. Stand-Sit: S 5. Bed-Chair : Supervision with FW W 6. Chair-Bed: Supervision with FW W 7. Gait: Supervision with FW W x50 feet Plan of Care/Treatment Plan: 1x/day, 7 days/week x 1 week. 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 Initiate Physical Therapy intervention for strengthening, bed mobility, transfers, gait, stairs, balance training, use of assistive device. DISCHARGE RECOMMENDATIONS: home TREATMENT CODE/TIME: 330 to 4:00 (82002) Ella Gabriel, PT, DPT [facility]
[2019-12-05] MEDS: Lisinopril 5 MG TAB PO (16:58)
--- NOTE | 2019-12-05 18:37 | W.PM.PROGNOT ---
Date of Service Date of service: 12/05/19 Time of Service: 14:00 Assessment and Plan Assessment and plan (1) Sepsis: Status: Acute Assessment and plan: As evidenced by fever, encephalopathy, AWILDA. Due to pneumonia, POA. Blood cx NGTD. Continue empiric doxycycline/ceftriaxone. (2) CAP (community acquired pneumonia): Status: Acute Assessment and plan: with hypoxia, which has not improved. If still hypoxic post a dose of lasix tonight, would recheck CXR tomorrow. Treat with above abx, nebs as above. Wean O2 as tolerated. ?component of pulmonary toxicity due to Lynparza. (3) AWILDA (acute kidney injury): Status: Resolved Assessment and plan: Due to dehydration/sepsis. Resolved. D/c IVF. Resume lasix and cash-i. (4) Toxic metabolic encephalopathy: Status: Resolved Assessment and plan: Due to above septic process. Already resolved. Monitor mental status. (5) Dehydration: Status: Resolved Assessment and plan: As above (6) Metastatic malignant neoplasm to prostate: Status: Chronic Assessment and plan: As above - hold lynparza (7) DVT prophylaxis: Status: Acute Assessment and plan: Heparin SC. TEDs, SCDs. (8) Discharge planning issues: Status: Acute Assessment and plan: DNR/DNI PT consult Palliative care consult Subjective Subjective Interval history since last seen: Feels better. Denies dizziness, chest pain, shortness of breath, nausea, vomiting, abdominal pain. Continues to require oxygen. Exam Narrative Exam Narrative: General: Very pleasant obese male, sitting in a chair, A&OX3, looks better than yesterday HEENT: EOMI, MMM, not cyanotic Cardiovascular: RRR, no m/r/g Lungs: nearly CTAB, ?quiet rales at B bases Gastrointestinal: abdomen obese, soft, nontender, nondistended Extremities: trace BLE edema, chronic venous stasis dermatitis; no suspicious erythema today. Objective Objective Clinical Data: Abnormal lab results 12/05/19 12/05/19 Range/Units 06:42 06:42 WBC 3.21 L (4.4-10.8) k/cumm RBC 3.26 L (4.50-6.00) m/cumm Hgb 10.9 L (13.5-17.5) g/dL Hct 35.1 L (40.0-50.0) % MCV 107.7 H (80-95) fL MCH 33.4 H (27.0-33.0) pg MCHC 31.1 L (32.0-36.0) g/dL RDW 20.4 H (11.8-14.1) % Absolute Lymphocytes 0.68 L (1.2-3.4) k/cumm Carbon Dioxide 34.3 H (21.0-32.0) mmol/L BUN 21 H (7-18) mg/dL Glucose 120 H (74-106) mg/dL Calcium 7.7 L (8.5-10.1) mg/dL Vital Signs Temperature 37.0 C 12/05/19 16:08 Temperature Source Tympanic 12/05/19 16:08 Pulse 57 L 12/05/19 16:08 Pulse Rhythm Regular 12/05/19 09:45 Pulse 63 12/04/19 15:30 Respiratory Rate 18 12/05/19 16:08 Respiratory Effort Non-Labored 12/05/19 09:45 Respiratory Depth Normal 12/05/19 09:45 Respiratory Pattern Normal 12/05/19 09:45 Blood Pressure 172/96 H 12/05/19 16:08 Blood Pressure Mean 92 12/04/19 13:21 Blood Pressure Position Supine 12/04/19 13:15 Pulse Oximetry 98 12/05/19 16:08 Oxygen Delivery Method Nasal Cannula 12/05/19 16:08 Oxygen Flow Rate 1 12/05/19 16:08 Pain Level 0 12/05/19 11:55 Intake & Output 12/04/19 12/05/19 12/05/19 23:59 11:59 23:59 Intake Total 990 / 990 1030 / 1270 240 / 1270 Output Total 300 / 650 350 / 650 Balance 990 / 990 730 / 620 -110 / 620 Weight 100.6 kg 99.8 kg Intake: IV 650 / 650 110 / 110 Oral 340 / 340 920 / 1160 240 / 1160 Output: Urine 300 / 650 350 / 650 Other: Urine Color Yellow Yellow Urine Appearance Clear Clear Clear Urine Odor None None Comment Voided into the toilet and flushed. Urine void in toilet, flushed without allowing nurse to view. Reports no issues. Stool Size Moderate Stool Characteristics Soft Voiding Methods Toilet Toilet Laboratory Results WBC 3.21 k/cumm (4.4-10.8) L 12/05/19 06:42 RBC 3.26 m/cumm (4.50-6.00) L 12/05/19 06:42 Hgb 10.9 g/dL (13.5-17.5) L 12/05/19 06:42 Hct 35.1 % (40.0-50.0) L 12/05/19 06:42 MCV 107.7 fL (80-95) H 12/05/19 06:42 MCH 33.4 pg (27.0-33.0) H 12/05/19 06:42 MCHC 31.1 g/dL (32.0-36.0) L 12/05/19 06:42 RDW 20.4 % (11.8-14.1) H 12/05/19 06:42 Plt Count 225 x1000/uL (130-400) 12/05/19 06:42 MPV 8.9 fL (8.0-11.0) 12/05/19 06:42 Immature Gran % 0.0 % 12/05/19 06:42 Neutrophils % 64.5 12/05/19 06:42 Lymphocytes % 21.2 12/05/19 06:42 Monocytes % 10.9 12/05/19 06:42 Eosinophils % 2.5 12/05/19 06:42 Basophils % 0.9 12/05/19 06:42 Absolute Neutrophils 2.07 k/cumm (1.2-6.7) 12/05/19 06:42 Absolute Lymphocytes 0.68 k/cumm (1.2-3.4) L 12/05/19 06:42 Absolute Monocytes 0.35 k/cumm (0.11-0.7) 12/05/19 06:42 Absolute Eosinophils 0.08 k/cumm (0.0-0.7) 12/05/19 06:42 Absolute Basophils 0.03 k/cumm (0.0-0.2) 12/05/19 06:42 Differential Comment Rbc morph reviewed 12/05/19 06:42 RBC Morphology See below 12/05/19 06:42 Polychromasia Present 12/05/19 06:42 Poikilocytosis 1+ 12/04/19 13:25 Basophilic Stippling Present 12/05/19 06:42 Anisocytosis 3+ 12/05/19 06:42 Microcytosis 1+ 12/04/19 13:25 Macrocytosis 2+ 12/05/19 06:42 Sodium 145 mmol/L (136-145) 12/05/19 06:42 Potassium 4.3 mmol/L (3.5-5.1) 12/05/19 06:42 Chloride 107 mmol/L (98-107) 12/05/19 06:42 Carbon Dioxide 34.3 mmol/L (21.0-32.0) H 12/05/19 06:42 Anion Gap 3.7 mmol/L (3-11) 12/05/19 06:42 BUN 21 mg/dL (7-18) H 12/05/19 06:42 Creatinine 1.09 mg/dL (0.70-1.30) 12/05/19 06:42 Estimated GFR/1.73 m2 >= 60.00 (mL/min/1.73m2) 12/05/19 06:42 Glucose 120 mg/dL (74-106) H 12/05/19 06:42 Lactate 1.0 mmol/L (0.6-1.4) 12/04/19 13:25 Calcium 7.7 mg/dL (8.5-10.1) L 12/05/19 06:42 Magnesium 2.3 mg/dL (1.8-2.4) 12/05/19 06:42 Total Bilirubin 0.3 mg/dL (0.2-1.0) 12/04/19 13:25 AST 22 U/L (15-37) 12/04/19 13:25 ALT 28 U/L (16-63) 12/04/19 13:25 Alkaline Phosphatase 84 U/L (46-116) 12/04/19 13:25 Ammonia 35 umol/L (11-32) H 12/04/19 13:25 Total Protein 6.5 g/dL (6.4-8.2) 12/04/19 13:25 Albumin 3.1 g/dL (3.4-5.0) L 12/04/19 13:25 Urine Color Yellow (Yellow) 12/04/19 13:40 Urine Clarity Clear (Clear) 12/04/19 13:40 Urine pH 5.5 (5-8) 12/04/19 13:40 Ur Specific [place] 1.020 (1.005-1.025) 12/04/19 13:40 Urine Protein 30 mg/dL (Negative) H 12/04/19 13:40 Urine Ketones Negative mg/dL (Negative) 12/04/19 13:40 Urine Blood Negative (Negative) 12/04/19 13:40 Urine Nitrite Negative (Negative) 12/04/19 13:40 Urine Bilirubin Negative (Negative) 12/04/19 13:40 Urine Urobilinogen 0.2 EU/dL (Up TO 0.2) 12/04/19 13:40 Ur Leukocyte Esterase Negative (Negative) 12/04/19 13:40 Urine RBC 3-5 HPF (0-2) H 12/04/19 13:40 Urine WBC Negative HPF (0-5) 12/04/19 13:40 Ur Epithelial Cells Negative HPF (Negative) 12/04/19 13:40 Urine Crystals Moderate amorphous HPF (Negative) 12/04/19 13:40 Urine Bacteria Negative HPF (Negative) 12/04/19 13:40 Urine Casts Negative LPF (Negative) 12/04/19 13:40 Urine Mucus Moderate (Negative) 12/04/19 13:40 Urine Other (Negative) 12/04/19 13:40 Ur Culture Indicated? No 12/04/19 13:40 Urine Glucose Negative mg/dL (Negative) 12/04/19 13:40
[2019-12-05] MEDS: Furosemide 20 MG/2 ML VIAL IVP (19:09)
[2019-12-06] VITALS (9 sets, daily range): BP systolic 163–186; BP diastolic 77–91; PULSE 55–87; RESP 16–20; TEMP 36.6–37.1; O2SAT 89–98
[2019-12-06] MEDS: DOXYCYCLINE 100 MG in Normal Saline 100 ML IVPB ×2 (06:23→17:59)
[2019-12-06] MEDS: Heparin 5,000 UNITS/ML VIAL 5000 UNITS SC ×3 (06:24→21:32)
[2019-12-06 06:47] LABS: Absolute Basophil Count 0.02 k/cumm (0.0-0.2); Absolute Eosinophil Count 0.09 k/cumm (0.0-0.7); Absolute Lymphocyte Count 0.76 k/cumm (1.2-3.4); Absolute Monocyte Count 0.36 k/cumm (0.11-0.7); Absolute Neutrophil Count 1.57 k/cumm (1.2-6.7); Basophils % 0.7; Eosinophils % 3.2; HCT 36.9 % (40.0-50.0); HGB 11.7 g/dL (13.5-17.5); Lymphocytes % 27.1; Mean Corp. HGB Concentration 31.7 g/dL (32.0-36.0); Mean Corpuscular Hemoglobin 33.9 pg (27.0-33.0); Mean Platelet Volume 8.9 fL (8.0-11.0); Monocytes % 12.9; Neutrophils % 56.1; Platelet Count 223 x1000/uL (130-400); RBC 3.45 m/cumm (4.50-6.00); RBC Distribution Width 20.5 % (11.8-14.1)
[2019-12-06 07:01] LABS: Anion Gap 3.9 mmol/L (3-11); BUN 17 mg/dL (7-18); CO2 34.1 mmol/L (21.0-32.0); Chloride 108 mmol/L (98-107); Glucose 100 mg/dL (74-106); Magnesium 2.3 mg/dL (1.8-2.4); Potassium 4.3 mmol/L (3.5-5.1); Sodium 146 mmol/L (136-145)
[2019-12-06] MEDS: Furosemide 20 MG TAB PO (08:39)
[2019-12-06] MEDS: Multivitamin TAB 1 TAB PO (08:39)
[2019-12-06] MEDS: Gabapentin 300 MG CAP 600 MG PO ×3 (08:39→19:37)
[2019-12-06] MEDS: Metoprolol CR 100 MG TABCR PO (08:39)
[2019-12-06] MEDS: guaiFENesin 600 MG TABCR PO ×2 (08:40→19:38)
[2019-12-06] MEDS: Lisinopril 10 MG TAB PO (08:40)
[2019-12-06] MEDS: Ascorbic Acid 500 MG TAB 1000 MG PO (08:40)
[2019-12-06] MEDS: Fluticasone NASAL SPRAY 16 GM BTL NS (10:08)
[2019-12-06] MEDS: Patch Removal 1 EACH TP (12:50)
[2019-12-06] MEDS: fentaNYL 75 MCG PATCH TD (12:51)
--- NOTE | 2019-12-06 14:14 | PHARADMIT ---
Admission Pharmacy Clinical Review SEPSIS due to CAP w/Hypoxia, Toxic Metabolic Encephalopathy (Immunosuppressed) Code Status DNR/DNI Current Weight Wgt-99.5 kg Renally Cleared and Narrow Therapeutic Index Meds CrCl~ 56 mL/min Meds-OK QTc Value / Action Taken QTc-385 na BP Control, Fever BP- 186/91 Tmax- 36.8C Electrolytes reviewed Na- 146 K+4.3 Mag-2.3 DVT Prophylaxis Heparin SC Opiate Usage / Scheduled Bowel Regimen Ordered Yes Yes Plt/SCr for Heparin / Enoxaparin Plts-223 SCr-0.90 INR for Warfarin na H/H stable, WBC/Bands H&H- 11.7/36.9 WBC-2.80 Antibiotic appropriateness Rocephin, Doxycycline Cultures and Sensitivities Blood-no growth, Fl-neg Surgical ABX d/c within 24 hr NA DM control / Insulin Dosing BG-100 Heart Failure (Check EF%) (TEDDY's, B-Block, Diuretics) Lasix, Lisinopril, Toprol-XL IV to PO Switch No Home Meds Reviewed Yes Home Meds Not Ordered Litzy Kaufman, Comments
[2019-12-06] MEDS: cefTRIAXone 1 GM/50 ML BAG IVPB (14:18)
--- NOTE | 2019-12-06 14:57 | PTTR_ITS ---
Date of service: 12/06/19 Time of Service: 14:57 PT Notes Visit Reasons: SEPSIS DUE TO CAP WITH HYPOXIA,TOXIC METABOLIC ENC 12/06/2019 SUBJECTIVE: Lester noting pain in his leg during AM session which is much improved during the PM session. He tells me he will be back to PT next week for his independent program. OBJECTIVE: Agreeable to PT 2x. TRANSFERS Supine to sit: I Sit to stand: SBA in the AM, I in PM Stand to sit: I GAIT Device: FWW Weight bearing: Full Assist: SBA in AM, S in PM Distance: 10' in AM, 70' in PM Deviation: Forward flexed over walker, RA VITALS: 91-95% throughout on RA. RT present during treatment today. ASSESSMENT: Lester is well known to me and he is ambulating about at his baseline. He has forward flexed posture over the walker with increasing distance due to back discomfort. PLAN: Continue per POC as pt is here in the hospital. Treatment time: 25 minutes total [id number] Tamiko Kovacs, MEDICAL RECORDS DIRECTOR
--- NOTE | 2019-12-06 15:07 | PDOC.CMPRO ---
- If Service Date Differs Date of service: 12/06/19 Time of Service: 15:07 Care Management Progress Note S/O: Lester was sitting up in a chair when CM met with him. He was pleasant and engaged readily in conversation with CM. Lester states that he is feeling much better today and hopes he will be discharged later today. He stated again that he does not feel that he needs any additional services at home. A: Lester is a pleasant 79 year old gentleman admitted on 12/04/2019 with sepsis. P:Lester will likely be discharged with no new services. He will follow up with his PCP and discharge plan of care. CM will continue to support patient, family and discharge planning needs.
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
[2019-12-07] MEDS: Normal Saline Flush 10 ML SYR (06:43)
[2019-12-07] MEDS: DOXYCYCLINE 100 MG in Normal Saline 100 ML IVPB (06:44)
[2019-12-07] MEDS: guaiFENesin 600 MG TABCR PO (07:33)
[2019-12-07] MEDS: Gabapentin 300 MG CAP 600 MG PO (07:33)
[2019-12-07] MEDS: Furosemide 20 MG TAB PO (07:33)
[2019-12-07] MEDS: Metoprolol CR 100 MG TABCR PO (07:34)
[2019-12-07] MEDS: Ascorbic Acid 500 MG TAB 1000 MG PO (07:34)
[2019-12-07] MEDS: Multivitamin TAB 1 TAB PO (07:35)
[2019-12-07] MEDS: Lisinopril 10 MG TAB PO (07:35)
[2019-12-07] MEDS: Fluticasone NASAL SPRAY 16 GM BTL NS (07:51)
--- NOTE | 2019-12-07 10:43 | DSE_ITS ---
Date of service: 12/07/19 Time of Service: 10:43 DS: Diagnosis Discharge Diagnosis (1) Sepsis: Status: Resolved Asessment and Plan: Based on mental status change, acute kidney injury, x- ray findings. Blood cultures were no growth. (2) CAP (community acquired pneumonia): Status: Acute Asessment and Plan: Bibasilar infiltrates. Treated with ceftriaxone/doxycycline. Discharged on 5 more days of doxycycline. (3) AWIDLA (acute kidney injury): Status: Resolved Asessment and Plan: Resolved with IV fluids. (4) Toxic metabolic encephalopathy: Status: Resolved Asessment and Plan: Mental status improved with antibiotic treatment and IV fluids. (5) Metastatic malignant neoplasm to prostate: Status: Chronic Asessment and Plan: Restarted on olaparib prior to discharge. Discharge Plan Disposition Patient Disposition: HOME Condition: Improving Discharge Details Chief Complaint: Fever Clinical Impression: Sepsis, CAP (community acquired pneumonia) Reason For Visit: SEPSIS DUE TO CAP WITH HYPOXIA,TOXIC METABOLIC ENC Admit Date/Time: 12/04/19 15:36 Admit Provider: Loly Brown Attending Provider: Loly Brown Primary Care Provider: Tonny Leslie ED Provider: Yuniel Gutiérrez Hospital Course Hospital Course: This is a 79-year-old male with metastatic prostate cancer who presented with extreme somnolence, mental status change, and fever. His called 911 and he was brought to the emergency room. He was confused and combative. His initial temp was 38.6, hypoxic to 84% on room air. His initial head CT was negative. Chest x-ray revealed bibasilar pneumonia. He was started on doxycycline and ceftriaxone. He had had a prodrome of cough with clear sputum for about a week. Influenza testing was negative. By the time of discharge he no longer had an oxygen requirement. He had no further fevers. His mental status has cleared. Blood cultures from admission are no growth. Discharged on 5 more days of doxycycline. Home Meds and New Rx's Prescriptions: New fentanyl [Duragesic] 75 mcg/hr Patch 72 Hour 75 mcg transdermal Q72H Qty: 5 RF: 0 doxycycline hyclate 100 mg tablet 100 mg PO BID Qty: 10 RF: 0 Continued ascorbic acid (vitamin C) [Vitamin C] 1,000 MG tablet 1,000 mg PO DAILY RF: 0 metoprolol succinate 100 MG tablet extended release 24 hr 100 mg PO DAILY RF: 0 Lupron Depot (4 month) 30 MG syringe kit 30 mg IM .Q4 months RF: 0 furosemide 20 MG tablet 20 mg PO DAILY RF: 0 multivitamin tablet 1 tab PO DAILY RF: 0 fluticasone propionate 50 mcg/actuation spray,suspension 1 spray BRIAN DAILY RF: 0 Xgeva 120 mg/1.7 mL (70 mg/mL) solution 120 mg SC Q6W RF: 0 lisinopril 5 mg tablet 10 mg PO DAILY Qty: 2 RF: 0 gabapentin 300 mg capsule 600 mg PO TID RF: 0 calcium carbonate-vitamin D3 500 mg calcium- 400 unit/5 mL liquid 5 ml PO DAILY RF: 0 zinc oxide 20 % Ointment 1 applic topical TID Qty: 30 RF: 0 clotrimazole 1 % Cream 1 applic topical TID Qty: 30 RF: 0 vits A and D-white pet-lanolin Ointment 1 applic topical TID Qty: 56 RF: 0 Changed Lynparza 150 mg Tablet 300 mg PO BID Qty: 0 RF: 0 Discontinued fentanyl 50 mcg/hr patch 72 hour 1 patch TD Q72H RF: 0 Discharge Instructions Instructions: Community Acquired Pneumonia (DC) Stand Alone Forms: Nursing Discharge Form Activity:: Activity as Tolerated Equipment/Supplies:: No Equipment Needed Diet:: As Tolerated Discharge Orders Discharge Orders: Discharge Order (Routine); Ordered 12/07/19 Ordered By: Rian Olvera DS: Summary Status at Discharge Functional status at discharge: independent ambulation Overall status at discharge: patient is back to baseline Mental Status: mental status grossly normal Speech and Movement: speech and movement normal Mood: congruent mood Affect: normal affect Time Spent with Patient providing and/or coordinating discharge services: Greater than 30 minutes Exam Narrative Exam Narrative: On the day of discharge his exam was notable for appearing somewhat pale but alert oriented and in good spirits. His lung exam was clear and free of rales on the right and left. He has good air movement. His oxygen saturation is 91% on room air. Psych Mental Status: mental status grossly normal Speech and Movement: speech and movement normal Mood: congruent mood Affect: normal affect DS: Data Vitals/I&O Vitals and I&O: Vital Signs Temperature 37.0 C 12/06/19 23:29 Temperature Source Tympanic 12/06/19 23:29 Pulse 60 12/06/19 23:29 Pulse Rhythm Regular 12/07/19 07:30 Pulse 63 12/04/19 15:30 Respiratory Rate 19 12/06/19 23:29 Respiratory Effort 12/07/19 07:30 Respiratory Depth Normal 12/07/19 07:30 Respiratory Pattern Normal 12/07/19 07:30 Blood Pressure 174/77 H 12/06/19 23:29 Blood Pressure Mean 92 12/04/19 13:21 Blood Pressure Position Supine 12/04/19 13:15 Pulse Oximetry 91 L 12/06/19 23:29 Oxygen Delivery Method Room Air 12/06/19 23:29 Oxygen Flow Rate 0 12/06/19 23:29 Pain Level 0 12/06/19 23:29 Intake & Output 12/06/19 12/06/19 12/07/19 11:59 23:59 11:59 Intake Total 850 / 850 240 / 240 Output Total 350 / 350 Balance 500 / 500 240 / 240 Weight 99.5 kg 98.5 kg Intake: IV 350 / 350 Oral 500 / 500 240 / 240 Output: Urine 350 / 350 Other: Urine Color Yellow Urine Appearance Clear Clear Comment voided in toilet Stool Size Large Stool Characteristics Soft Formed Voiding Methods Urinal Toilet Data Completed and Pending Labs on day of discharge: Preliminary micro results at discharge 12/04/19 14:45 Blood Culture - Preliminary Blood NO GROWTH 48 HOURS 12/04/19 13:25 Blood Culture - Preliminary Blood NO GROWTH 48 HOURS [facility] Medical History Bone metastases (Acute) Chronic kidney disease, stage 3 Decubital ulcer (Chronic) Edema (Resolved) Hx of acute renal failure Hyperlipidemia (Chronic) Hypertension (Chronic) Left foot pain (Resolved) Left rotator cuff tear (Chronic) Lichen sclerosus (Acute) Memory loss (Chronic) Metastatic malignant neoplasm to prostate (Chronic) Mononeuropathy of left lower extremity Peripheral edema 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
--- NOTE | 2019-12-07 11:13 | PT.INNT ---
Date of service: 12/07/19 PT Notes Visit Reasons: SEPSIS DUE TO CAP WITH HYPOXIA,TOXIC METABOLIC ENC Pt reports that he is getting ready to go home and he would like to conserve his energy for that today but states that he plans on completing his out pt PT on Monday.
--- NOTE | 2019-12-07 11:49 | PDOC.CMDIS ---
- If Service Date Differs Date of service: 12/07/19 Time of Service: 11:49 LACE Index Scoring Tool - Questions: Length of Stay (in days): 4 - 6 Acuity (Admit via E.D.?): Yes Comorbidities: Any Tumor, Dementia E.D. Visits: 3 - Answers: Total Score: 15 Risk of Readmission: High Risk Care Management Discharge Reason for Hospitalization: sepsis Discharge Plan: Jesus will be discharged home today he feels ready to be discharged. Jesus's spouse is present for discharge instructions and follow up plan. No addtional services needed at time of discharge. Spouse will transport home via private car. Patient/Family Education Needs: Discharge instructions, limitations follow up plan of care and ask me three self management.
--- NOTE | 2019-12-10 10:30 | PT.INDS ---
Date of service: 12/10/19 Time of Service: 10:30 PT Notes Visit Reasons: SEPSIS DUE TO CAP WITH HYPOXIA,TOXIC METABOLIC ENC Inpatient Physical Therapy Discharge Summary Dates: 12/10/2019 Dates of Service: 12/05/2019 through 12/07/2019 This is a clinical summary of care provided on the duration of dates listed above. No charge was made in the completion of this documentation. Referring Doctor: Dr. Brown PT Orders: PT CONSULT: Limited ability to ambulate Precautions: Contact Patient Profile/Admitting Diagnosis: Patient admitted from ER after demonstrating weakness and confusion at home. He was diagnosed with sepsis secondary to pneumonia, acute kidney injury, and toxic metabolic encephalopathy. PMHX: Prostate cancer, HTN, hyperlipidemia, acute renal failure and chronic kidney disease stage 3, peptic ulcer, neuropathy, peripheal edema, memory loss, TBI. Bilateral dropfoot Social History/Home Situation: Patient lives with his Lotus, who assists with his care. He completes an independent exercise program in our outpatient clinic 2x/week. He typically ambulates short distances with FW W, typically 75-100 feet at a time. Equipment Owned/DME: FWW. Bilat AFOs, which patient has been unable to utilize due to an ulceration on his left foot. Subjective: NT Objective: General Observation: NT Mental Status: NT Pain: NT ROM: Right Upper Extremity: WNL Left Upper Extremity: Shoulder flexion limited to approx 30 degrees. Elbow and wrist motion WNL. Right Lower Extremity: WNL Left Lower Extremity: WNL Strength: Right Upper Extremity: WNL Left Upper Extremity: Patient lacks functional shoulder strength. Elbow and wrist motion grossly WNL. Right Lower Extremity: Hip flexion 5/5. Quads 5/5. HS 5/5. Ankle DF 0/5. Ankle PF 0/5. Left Lower Extremity: Hip flexion 5/5. Quads 5/5. HS 5/5. Ankle DF 0/5. Ankle PF 0/5. Sensation: impaired throughout bilat feet Bed Mobility/Transfers: sit->stand: Independent stand->sit: Independent Gait: Patient ambulates 70' with FWW and supervision with SaO2 91-95% Balance: Static Sitting: Good Dynamic Sitting: Fair Static Standing: Fair Dynamic Standing: Poor Assessment: Patient is a 79 year old male referred to physical therapy services with the diagnosis of decreased ability to ambulate. Patient presents with clinical signs and symptoms consistent with diagnosis, with chronic mobility issues accentuated by acute medical issues. He demonstrated the following impairment level findings: 1. Decreased activity tolerance 2. gait impairments with bilat drop foot 3. High fall risk 4. Oxygen desaturation with ambulation Impairments contributed to the following functional limitations: 1. High fall risk 2. decreased activity tolerance Goals: Goals X1 week 1. Supine-Sit: min A MET 2. Sit-Supine: min A MET 3. Sit-Stand : Supervision MET 4. Stand-Sit: S MET 5. Bed-Chair : Supervision with FWW MET 6. Chair-Bed: Supervision with FWW MET 7. Gait: Supervision with FWW x 50 feet MET DISCHARGE RECOMMENDATIONS: Home TREATMENT CODE/TIME: NC. Thank you very much for this referral. Liliane Morales PT, DPT, CLT [facility]
== END 2019-12-07 11:33 | disposition home or self-care (01) | DRG 871 ==
LOC: ER 16:21 → MS 17:07
PROVIDERS: Admitting Provider Internal Medicine; Emergency Provider Student in an Organized Health Care Education/Training Program; PCP Internal Medicine; Visit Provider Family Medicine
DX: A41.9 Sepsis, unspecified organism (principal); J18.9 Pneumonia, unspecified organism; G92 Toxic encephalopathy; N17.9 Acute kidney failure, unspecified; C79.51 Secondary malignant neoplasm of bone; R09.02 Hypoxemia; E86.0 Dehydration; C61 Malignant neoplasm of prostate; E78.5 Hyperlipidemia, unspecified
CPT/HCPCS: 36415; 80048; 80053; 87040; 87449; 94618; 96361; 96365; 96366; 96367; 97162; 97530; 99223; 99232; 99239; 99285; 70450; 71045; 81003; 81015; 82140; 83605; 83735; 85025; J0131; J0696; J1644; J1941; J3490

== ENCOUNTER 2019-12-09 13:38 | Outpatient (CLI) | payer MEDICARE, SELFPAY ==
[2019-12-09 14:08] LABS: Abs Immature Grans 0.01 k/cumm (0.0-0.09); Absolute Basophil Count 0.04 k/cumm (0.0-0.2); Absolute Eosinophil Count 0.08 k/cumm (0.0-0.7); Absolute Lymphocyte Count 0.76 k/cumm (1.2-3.4); Absolute Neutrophil Count 1.99 k/cumm (1.2-6.7); Basophils % 1.2; Eosinophils % 2.4; HCT 39.7 % (40.0-50.0); HGB 12.8 g/dL (13.5-17.5); Immature Grans % 0.3 %; Lymphocytes % 23.2; Mean Corp. HGB Concentration 32.2 g/dL (32.0-36.0); Mean Corpuscular Hemoglobin 34.4 pg (27.0-33.0); Mean Corpuscular Volume 106.7 fL (80-95); Mean Platelet Volume 9.1 fL (8.0-11.0); Monocytes % 12.2; Neutrophils % 60.7; Platelet Count 237 x1000/uL (130-400); RBC 3.72 m/cumm (4.50-6.00); White Blood Cell Count 3.28 k/cumm (4.4-10.8)
[2019-12-09 14:22] LABS: ALT 38 U/L (16-63); AST 29 U/L (15-37); Albumin 3.2 g/dL (3.4-5.0); Alkaline Phosphatase 96 U/L (46-116); Anion Gap 2.3 mmol/L (3-11); BUN 19 mg/dL (7-18); Bilirubin, Total 0.4 mg/dL (0.2-1.0); CO2 34.7 mmol/L (21.0-32.0); CREATININE 1.27 mg/dL (0.70-1.30); Calcium 8.7 mg/dL (8.5-10.1); Chloride 108 mmol/L (98-107); Estimated GFR 54.85 (mL/min/1.73m2); Glucose 129 mg/dL (74-106); Potassium 4.5 mmol/L (3.5-5.1); Sodium 145 mmol/L (136-145); Total Protein 6.5 g/dL (6.4-8.2)
[2019-12-09 14:33] LABS: Anisocytosis 2+; Diff Comment RBC Morph Reviewed
[2019-12-09 14:34] LABS: Hypochromasia 1+; Macrocytosis 1+; Polychromasia Present
[2019-12-09 14:35] LABS: Poikilocytes 1+
[2019-12-10 10:49] LABS: PSA, Diagnostic 69.9 ng/mL (0.0-6.5)
[2019-12-12 08:22] LABS: Testosterone, Total <7.0 ng/dL (240-950)
== END 2019-12-09 13:58 ==
PROVIDERS: PCP Internal Medicine; Visit Provider Internal Medicine
DX: C61 Malignant neoplasm of prostate (principal); C79.51 Secondary malignant neoplasm of bone
CPT/HCPCS: 36415; 80053; 84403; 84153; 85025

== ENCOUNTER 2019-12-24 14:02 | Outpatient (CLI) | payer MEDICARE, SELFPAY ==
[2019-12-24 14:32] LABS: Abs Immature Grans 0.01 k/cumm (0.0-0.09); Absolute Basophil Count 0.03 k/cumm (0.0-0.2); Absolute Eosinophil Count 0.08 k/cumm (0.0-0.7); Absolute Lymphocyte Count 0.81 k/cumm (1.2-3.4); Basophils % 0.7; Eosinophils % 1.9; HCT 41.5 % (40.0-50.0); HGB 13.3 g/dL (13.5-17.5); Immature Grans % 0.2 %; Lymphocytes % 19.5; Mean Corpuscular Hemoglobin 34.6 pg (27.0-33.0); Mean Corpuscular Volume 108.1 fL (80-95); Mean Platelet Volume 8.8 fL (8.0-11.0); Monocytes % 7.2; Neutrophils % 70.5; Platelet Count 234 x1000/uL (130-400); RBC 3.84 m/cumm (4.50-6.00); RBC Distribution Width 20.8 % (11.8-14.1); White Blood Cell Count 4.15 k/cumm (4.4-10.8)
[2019-12-24 14:35] LABS: Absolute Neutrophil Count 2.93 k/cumm (1.2-6.7)
[2019-12-24 15:15] LABS: ALT 31 U/L (16-63); AST 25 U/L (15-37); Albumin 3.3 g/dL (3.4-5.0); Alkaline Phosphatase 110 U/L (46-116); Anion Gap 5.6 mmol/L (3-11); BUN 23 mg/dL (7-18); Bilirubin, Total 0.4 mg/dL (0.2-1.0); CO2 34.4 mmol/L (21.0-32.0); CREATININE 1.14 mg/dL (0.70-1.30); Calcium 8.7 mg/dL (8.5-10.1); Chloride 107 mmol/L (98-107); Glucose 152 mg/dL (74-106); Potassium 4.7 mmol/L (3.5-5.1); Sodium 147 mmol/L (136-145); Total Protein 6.4 g/dL (6.4-8.2)
[2019-12-24 15:23] LABS: Anisocytosis 3+; Diff Comment RBC Morph Reviewed; Macrocytosis 2+; Microcytosis 1+; Poikilocytes 1+; Polychromasia Present
[2019-12-25 10:18] LABS: PSA, Diagnostic 62.4 ng/mL (0.0-6.5)
[2019-12-27 12:55] LABS: Testosterone, Total <7.0 ng/dL (240-950)
== END 2019-12-24 14:22 ==
PROVIDERS: PCP Internal Medicine; Visit Provider Internal Medicine
DX: C61 Malignant neoplasm of prostate (principal); C79.51 Secondary malignant neoplasm of bone
CPT/HCPCS: 36415; 80053; 84403; 84153; 85025

== ENCOUNTER 2020-01-08 11:08 | Inpatient (IN) | payer MEDICARE, SELFPAY ==
[2020-01-08] VITALS (131 sets, daily range): BP systolic 112–173; BP diastolic 42–86; PULSE 53–76; RESP 6–24; TEMP 37.1–37.4; O2SAT 78–100
--- NOTE | 2020-01-08 11:15 | DI.RAD_ITS ---
EXAM: XR PORTABLE CHEST AP AT 13:05 HOURS CLINICAL HISTORY: Cough, fever TECHNIQUE: 2D digital imaging was performed. COMPARISON: XR CHEST 1V IN DI DEPT from 05/01/2019 XR PORTABLE CHEST AP from 12/04/2019 FINDINGS: The exam is limited by patient body habitus and respiratory motion. The lungs are not well inflated . The heart is enlarged, unchanged. The left lung base is not well seen. There are increased densi ties bilaterally which could represent infiltrates or pulmonary edema. Severe degenerative changes a re noted in both shoulders. IMPRESSION: Severely limited exam. Bibasilar densities could represent infiltrates, atelectasis or pulmonary kika ma. Repeat PA and lateral examination is recommended.
--- NOTE | 2020-01-08 11:25 | W.ED.GENAD ---
Discharge Plan Disposition Patient Disposition: [facility] INPATIENT Condition: Serious Discharge Details Chief Complaint: AMS/LOC Clinical Impression: Altered mental status, Hypoxia, Pneumonia Primary Care Provider: Tonny Leslie ED Provider: Festus Marie Home Meds and New Rx's Prescriptions: No Action ascorbic acid (vitamin C) [Vitamin C] 1,000 MG tablet 1,000 mg PO DAILY RF: 0 metoprolol succinate 100 MG tablet extended release 24 hr 100 mg PO DAILY RF: 0 Lupron Depot (4 month) 30 MG syringe kit 30 mg IM .Q4 months RF: 0 furosemide 20 MG tablet 20 mg PO DAILY RF: 0 multivitamin tablet 1 tab PO DAILY RF: 0 fluticasone propionate 50 mcg/actuation spray,suspension 1 spray BRIAN DAILY RF: 0 Xgeva 120 mg/1.7 mL (70 mg/mL) solution 120 mg SC Q6W RF: 0 lisinopril 5 mg tablet 10 mg PO DAILY Qty: 2 RF: 0 gabapentin 300 mg capsule 600 mg PO TID RF: 0 calcium carbonate-vitamin D3 500 mg calcium- 400 unit/5 mL liquid 5 ml PO DAILY RF: 0 zinc oxide 20 % Ointment 1 applic topical TID Qty: 30 RF: 0 clotrimazole 1 % Cream 1 applic topical TID Qty: 30 RF: 0 vits A and D-white pet-lanolin Ointment 1 applic topical TID Qty: 56 RF: 0 fentanyl [Duragesic] 75 mcg/hr Patch 72 Hour 75 mcg transdermal Q72H Qty: 5 RF: 0 doxycycline hyclate 100 mg tablet 100 mg PO BID Qty: 10 RF: 0 Lynparza 150 mg Tablet 300 mg PO BID Qty: 0 RF: 0 Medical Decision Making This is an ill-appearing 79-year-old gentleman, initial limited HPI with significant past medical history. Recent admission to our facility for pneumonia. Presentation today reveals decreased level of responsiveness, confusion, cough, and a fever per EMS. Will initiate septic work-up, give IV fluid, once blood cultures obtained will provide 2 g IV Rocephin. Given the patient's presentation which appears to be very similar to last month, will not obtain emergent head CT at this time as he had a head CT 1 month ago. There is no overt signs of head trauma I did discuss the case with Dr. Emir Hodgson, patient is presenting with limited HPI, febrile respiratory illness, unknown contacts in the community, patient will be treated as a person of interest for suspected COVID, proper precautions took. Patient did maintain proper oxygenation with 7 L nasal cannula initially. Patient is a DNR DNI and at the moment does not appear to have the capacity to make medical decisions for himself. I did contact the state and all appropriate information and paperwork completed to submit coronavirus testing. Patient did eventually require 10 L O2 via nonrebreather Patient did have a fentanyl patch on, given his decreased level of responsiveness, this was removed Laboratory values reveal a white count of 4.45, hemoglobin 12.6, hematocrit 39.5, absolute lymphocytes 0.76, carbon dioxide 39, anion gap -1, BUN 21 GFR estimated greater than 60, glucose 129, troponin less than 0.05. Urinalysis not consistent with UTI. Flu a and B-. Initial laboratory values outside of a carbon dioxide of 39, rather unremarkable. Chest x-ray reveals bilateral basilar infiltrates, edema, atelectasis, unchanged from previous. Flu negative. Patient has received 2 g IV Rocephin and 1 L IV fluid. I was able to speak with the patient's ex- regarding the BiPAP if indicated. She does understand that the patient is a DNR/DNI but feels as though if it can be noninvasive and for short period of time she believes it would be reasonable. She is able to tell me that he seemed to have a rather full recovery from his recent hospitalization and only became ill 3 days ago. Started with some general lethargy, developed into a dry cough, progressing to a wet cough. Chills last night. Subjective fever at home. She is able to tell me there is been no recent travel. At this point he is maintaining oxygenation with 10 L nonrebreather. We will discuss the case with our hospitalist team for admission. He requests that we add on an ABG, BNP, IV steroids, IV fluoroquinolone, and neb treatment. All ordered. At the moment there are no open beds on the floor, patient will likely be held in the ER for some time until bed assignment can be obtained. He does plan to come see the patient in the ER. Patient given 750 IV Levaquin and 125 IV Solu-Medrol. Medical Records Medical records reviewed: Yes I reviewed the patient's medical records. Imaging Data Radiologic Study: Imaging: X-Ray Radiologist's impression: Bilateral basilar infiltrates, edema, atelectasis. No significant change when compared to previous Lab Data Lab results reviewed: Yes I reviewed the patient's lab results. Lab results narrative: 01/08/20 12:00 Nasopharynx Influenza Types A,B Antigen - Final 01/08/20 12:25 Blood Blood Culture - Pending 01/08/20 11:25 Blood Blood Culture - Pending Laboratory Tests Range/Units 01/08/20 01/08/20 01/08/20 11:25 11:25 11:25 WBC (4.4-10.8) k/cumm 4.45 RBC (4.50-6.00) m/cumm 3.50 L Hgb (13.5-17.5) g/dL 12.6 L Hct (40.0-50.0) % 39.5 L MCV (80-95) fL 112.9 H MCH (27.0-33.0) pg 36.0 H MCHC (32.0-36.0) g/dL 31.9 L RDW (11.8-14.1) % 21.0 H Plt Count (130-400) x1000/uL 250 MPV (8.0-11.0) fL 9.0 Immature Gran % % 0.2 Neutrophils % 74.2 Lymphocytes % 17.1 Monocytes % 7.4 Eosinophils % 0.7 Basophils % 0.4 Absolute Neutrophils (1.2-6.7) k/cumm 3.30 Absolute Lymphocytes (1.2-3.4) k/cumm 0.76 L Absolute Monocytes (0.11-0.7) k/cumm 0.33 Absolute Eosinophils (0.0-0.7) k/cumm 0.03 Absolute Basophils (0.0-0.2) k/cumm 0.02 PT (9.3-11.0) sec INR (0.9-1.1) ABG Sample Site ABG pH (7.35-7.45) ABG pCO2 (34-47) mmHg ABG pO2 (83-108) mmHg ABG HCO3 (22-28) mmol/L ABG Total CO2 (22-29) mmol/L ABG O2 Saturation (94-98) % ABG Base Excess (-3-3) mmol/L Oxygen Liter Flow L FiO2 % Sodium (136-145) mmol/L 144 Potassium (3.5-5.1) mmol/L 5.0 Chloride (98-107) mmol/L 106 Carbon Dioxide (21.0-32.0) mmol/L 39.0 H Anion Gap (3-11) mmol/L -1.0 L BUN (7-18) mg/dL 21 H Creatinine (0.70-1.30) mg/dL 1.15 Estimated GFR/1.73 m2 (mL/min/1.73m2) >= 60.00 Glucose (74-106) mg/dL 129 H Lactate (0.6-1.4) mmol/L 1.3 Calcium (8.5-10.1) mg/dL 8.1 L Total Bilirubin (0.2-1.0) mg/dL 0.3 AST (15-37) U/L 25 ALT (16-63) U/L 35 Alkaline Phosphatase (46-116) U/L 101 Troponin I (<0.06) ng/Ml NT-Pro-B Natriuret Pep (<300) pg/mL Total Protein (6.4-8.2) g/dL 6.9 Albumin (3.4-5.0) g/dL 3.2 L Urine Color (Yellow) Urine Clarity (Clear) Urine pH (5-8) Ur Specific Terrell (1.005-1.025) Urine Protein (Negative) mg/dL Urine Ketones (Negative) mg/dL Urine Blood (Negative) Urine Nitrite (Negative) Urine Bilirubin (Negative) Urine Urobilinogen (Up TO 0.2) EU/dL Ur Leukocyte Esterase (Negative) Urine RBC (0-2) HPF Urine WBC (0-5) HPF Ur Epithelial Cells (Negative) HPF Urine Crystals (Negative) HPF Urine Bacteria (Negative) HPF Urine Casts (Negative) LPF Urine Mucus (Negative) Ur Culture Indicated? Urine Glucose (Negative) mg/dL Range/Units 01/08/20 01/08/20 01/08/20 11:25 11:25 11:25 WBC (4.4-10.8) k/cumm RBC (4.50-6.00) m/cumm Hgb (13.5-17.5) g/dL Hct (40.0-50.0) % MCV (80-95) fL MCH (27.0-33.0) pg MCHC (32.0-36.0) g/dL RDW (11.8-14.1) % Plt Count (130-400) x1000/uL MPV (8.0-11.0) fL Immature Gran % % Neutrophils % Lymphocytes % Monocytes % Eosinophils % Basophils % Absolute Neutrophils (1.2-6.7) k/cumm Absolute Lymphocytes (1.2-3.4) k/cumm Absolute Monocytes (0.11-0.7) k/cumm Absolute Eosinophils (0.0-0.7) k/cumm Absolute Basophils (0.0-0.2) k/cumm PT (9.3-11.0) sec 10.4 INR (0.9-1.1) 1.0 ABG Sample Site ABG pH (7.35-7.45) ABG pCO2 (34-47) mmHg ABG pO2 (83-108) mmHg ABG HCO3 (22-28) mmol/L ABG Total CO2 (22-29) mmol/L ABG O2 Saturation (94-98) % ABG Base Excess (-3-3) mmol/L Oxygen Liter Flow L FiO2 % Sodium (136-145) mmol/L Potassium (3.5-5.1) mmol/L Chloride (98-107) mmol/L Carbon Dioxide (21.0-32.0) mmol/L Anion Gap (3-11) mmol/L BUN (7-18) mg/dL Creatinine (0.70-1.30) mg/dL Estimated GFR/1.73 m2 (mL/min/1.73m2) Glucose (74-106) mg/dL Lactate (0.6-1.4) mmol/L Calcium (8.5-10.1) mg/dL Total Bilirubin (0.2-1.0) mg/dL AST (15-37) U/L ALT (16-63) U/L Alkaline Phosphatase (46-116) U/L Troponin I (<0.06) ng/Ml < 0.05 NT-Pro-B Natriuret Pep (<300) pg/mL 4215 H Total Protein (6.4-8.2) g/dL Albumin (3.4-5.0) g/dL Urine Color (Yellow) Urine Clarity (Clear) Urine pH (5-8) Ur Specific Terrell (1.005-1.025) Urine Protein (Negative) mg/dL Urine Ketones (Negative) mg/dL Urine Blood (Negative) Urine Nitrite (Negative) Urine Bilirubin (Negative) Urine Urobilinogen (Up TO 0.2) EU/dL Ur Leukocyte Esterase (Negative) Urine RBC (0-2) HPF Urine WBC (0-5) HPF Ur Epithelial Cells (Negative) HPF Urine Crystals (Negative) HPF Urine Bacteria (Negative) HPF Urine Casts (Negative) LPF Urine Mucus (Negative) Ur Culture Indicated? Urine Glucose (Negative) mg/dL Range/Units 01/08/20 01/08/20 11:55 15:30 WBC (4.4-10.8) k/cumm RBC (4.50-6.00) m/cumm Hgb (13.5-17.5) g/dL Hct (40.0-50.0) % MCV (80-95) fL MCH (27.0-33.0) pg MCHC (32.0-36.0) g/dL RDW (11.8-14.1) % Plt Count (130-400) x1000/uL MPV (8.0-11.0) fL Immature Gran % % Neutrophils % Lymphocytes % Monocytes % Eosinophils % Basophils % Absolute Neutrophils (1.2-6.7) k/cumm Absolute Lymphocytes (1.2-3.4) k/cumm Absolute Monocytes (0.11-0.7) k/cumm Absolute Eosinophils (0.0-0.7) k/cumm Absolute Basophils (0.0-0.2) k/cumm PT (9.3-11.0) sec INR (0.9-1.1) ABG Sample Site Right radial ABG pH (7.35-7.45) 7.22 L ABG pCO2 (34-47) mmHg 87 H* ABG pO2 (83-108) mmHg 112 H ABG HCO3 (22-28) mmol/L 35 H ABG Total CO2 (22-29) mmol/L 33 H ABG O2 Saturation (94-98) % 97 ABG Base Excess (-3-3) mmol/L 7.5 H Oxygen Liter Flow L 10 FiO2 % Oxymask Sodium (136-145) mmol/L Potassium (3.5-5.1) mmol/L Chloride (98-107) mmol/L Carbon Dioxide (21.0-32.0) mmol/L Anion Gap (3-11) mmol/L BUN (7-18) mg/dL Creatinine (0.70-1.30) mg/dL Estimated GFR/1.73 m2 (mL/min/1.73m2) Glucose (74-106) mg/dL Lactate (0.6-1.4) mmol/L Calcium (8.5-10.1) mg/dL Total Bilirubin (0.2-1.0) mg/dL AST (15-37) U/L ALT (16-63) U/L Alkaline Phosphatase (46-116) U/L Troponin I (<0.06) ng/Ml NT-Pro-B Natriuret Pep (<300) pg/mL Total Protein (6.4-8.2) g/dL Albumin (3.4-5.0) g/dL Urine Color (Yellow) Yellow Urine Clarity (Clear) Clear Urine pH (5-8) 5.5 Ur Specific Terrell (1.005-1.025) >= 1.030 H Urine Protein (Negative) mg/dL 100 H Urine Ketones (Negative) mg/dL Negative Urine Blood (Negative) Trace-intact H Urine Nitrite (Negative) Negative Urine Bilirubin (Negative) Negative Urine Urobilinogen (Up TO 0.2) EU/dL 0.2 Ur Leukocyte Esterase (Negative) Negative Urine RBC (0-2) HPF 3-5 H Urine WBC (0-5) HPF 0-2 Ur Epithelial Cells (Negative) HPF Rare Urine Crystals (Negative) HPF Negative Urine Bacteria (Negative) HPF Rare Urine Casts (Negative) LPF Negative Urine Mucus (Negative) Trace Ur Culture Indicated? No Urine Glucose (Negative) mg/dL Negative ECG Data Interpretation: EKG was reviewed and interpreted by Dr. Shipley. EKG performed at 1112. Sinus rhythm, ventricular of 69. No STEMI. T wave inversion V1, V3, new HPI General Mode of arrival: EMS. Date/Time Provider Initiated Documentation: 01/08/20 11:12. Limitations to Documentation: altered mental status. Information obtained by: patient and EMS. HPI Narrative: This is a 79-year-old gentleman who was discharged from our facility on 12-07-2019 for pneumonia. 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 He presents to our ER today via EMS for altered mental status, fever of 100.9, worsening cough, over the past 3 days. Patient's ex- who he resides with called EMS patient is only able to answer yes and no questions, is a limited historian. He is a DNR and DNI. He presents initially without his ex- so the initial HPI is very limited. He denies any pain whatsoever. I was able to review his visit last month, very similar presentation Related Data Home Medications Medication Instructions Recorded Confirmed Lupron Depot (4 month) 30 mg IM .Q4 months 09/25/17 01/08/20 ascorbic acid (vitamin C) [Vitamin 1,000 mg PO DAILY 09/25/17 01/08/20 C] furosemide 20 mg PO DAILY tab-cap 09/25/17 01/08/20 metoprolol succinate 100 mg PO DAILY tab-cap 09/25/17 01/08/20 calcium carbonate-vitamin D3 500 5 ml PO DAILY ml 12/10/18 01/08/20 mg calcium-400 unit/5 mL oral liquid denosumab 120 mg/1.7 mL (70 mg/mL) 120 mg SC Q6W 12/10/18 01/08/20 subcutaneous solution fluticasone propionate 50 1 spray BRIAN DAILY 12/10/18 01/08/20 mcg/actuation nasal spray,suspension gabapentin 300 mg capsule 600 mg PO TID tab-cap 12/10/18 01/08/20 lisinopril 5 mg tablet 10 mg PO DAILY #2 tab-cap 12/10/18 01/08/20 multivitamin 1 tab PO DAILY 12/10/18 01/08/20 clotrimazole 1 applic TOPICAL TID #30 gm 09/15/19 01/08/20 vits A and D-white pet-lanolin 1 applic TOPICAL TID #56 gm 09/15/19 01/08/20 zinc oxide 1 applic TOPICAL TID #30 gm 09/15/19 01/08/20 Lynparza 300 mg PO BID #0 tab 12/07/19 01/08/20 doxycycline hyclate 100 mg PO BID #10 tab 12/07/19 01/08/20 fentanyl [Duragesic] 75 mcg TRANSDERMAL Q72H #5 each 12/07/19 01/08/20 Previous Rx's Medication Instructions Recorded clotrimazole 1 applic TOPICAL TID #30 gm 09/15/19 vits A and D-white pet-lanolin 1 applic TOPICAL TID #56 gm 09/15/19 zinc oxide 1 applic TOPICAL TID #30 gm 09/15/19 Lynparza 300 mg PO BID #0 tab 12/07/19 doxycycline hyclate 100 mg PO BID #10 tab 12/07/19 fentanyl [Duragesic] 75 mcg TRANSDERMAL Q72H #5 each 12/07/19 Allergies Allergy/AdvReac Type Severity Reaction Status Date / Time No Known Drug Allergies Allergy Unverified 01/08/20 13:09 General BENNY: 2 Review of Systems Constitutional Constitutional: Reports fatigue, Reports fever(s) and Denies headache(s) Eyes Eyes: Denies eye discharge ENT Ears, Nose, Mouth, and Throat: Denies headache(s) Cardiovascular Cardiovascular: Denies chest pain and Reports dyspnea Respiratory Respiratory: Reports cough and Reports dyspnea Gastrointestinal Gastrointestinal: Denies abdominal pain, Denies diarrhea and Denies vomiting Genitourinary Genitourinary: Denies dysuria Musculoskeletal Musculoskeletal: Denies myalgias Integumentary/Breasts Skin/Breast: Denies rash Neurologic Neurologic: Denies headache(s) Endocrine Endocrine: Reports fatigue PFSH Medical History Bone metastases (Acute) Chronic kidney disease, stage 3 Decubital ulcer (Chronic) Edema (Resolved) Hx of acute renal failure Hyperlipidemia (Chronic) Hypertension (Chronic) Left foot pain (Resolved) Left rotator cuff tear (Chronic) Lichen sclerosus (Acute) Memory loss (Chronic) Metastatic malignant neoplasm to prostate (Chronic) Mononeuropathy of left lower extremity Peripheral edema 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) Physeal fracture of phalanx of toe of left foot Pressure ulcer Buttocks TBI (traumatic brain injury) (Acute) Family History Mother Lung cancer Social History Smoking/Tobacco Use Status: Never Alcohol Intake: never Drug use: Never Substance use type: does not use Household members: spouse Number of Children: 2 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; [employer]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 Do you feel safe at home: Yes Do you feel safe in your relationship?: Yes Additional Social history: Moved from [place] to [place] in 2017 to be cared for by ( x10 years previously) Exam Const General: in distress and ill appearing Orientation: oriented to person Limitations: altered mental status (Decreased responsiveness) HENMT Head: normal to inspection, normocephalic and atraumatic Ears: external ears normal, TM's normal bilaterally and EAC's normal General nose exam: external nose normal Mouth: moist mucous membranes abnormal (Dry) Eyes Conjunctivae: conjunctivae normal Sclera: sclerae normal Cornea: corneas normal Pupils: PERRL EOM: EOM intact bilaterally Direct ophthalmoscopy: normal light reflex Neck Neck: normal visual inspection, full ROM, no lymphadenopathy, no meningeal signs and trachea midline Chest Chest: normal inspection of the chest Resp Effort & Inspection: not able to speak in complete sentences and cough Quality of cough: wet Auscultation: diminished lung sounds (Throughout) and rhonchi (Bilateral bases) Cardio Rate: regular rate Rhythm: regular rhythm GI Inspection: normal to inspection Palpation: soft, not firm, no guarding, no masses and nontender Auscultation: normal bowel sounds Male General Exam: Yes normal external exam Back/Spine/Pelvis Back: no CVA tenderness and No back tenderness Skin General skin exam: no rashes or lesions noted Neuro General: oriented Patient Orientation: Person and other (Decreased level of responsiveness) Speech: abnormal speech (Speaks in one-word sentences) Gait: other (Not tested) Motor: other (Patient moves all 4 extremities, does not follow command, difficult to asse) Sensory Exam: other (No obvious focal deficit) Extrem General: normal to inspection and normal capillary refill Right lower extremity: foot Details: other (Healing wound to the third toe, does not appear infected) Course Lab/Test Results Lab/Test Results: 01/08/20 11:19 Blood Blood Culture - Pending 01/08/20 11:19 Blood Blood Culture - Pending Critical Care Time Critical Care Time Critical Care Time: Yes Total Critical Care Time: 35 Attestation: Upon my evaluation, this patient had a high probability of clinically significant, life-threatening deterioration due to their current medical conditions, which required my direct attention, intervention, and personal management. I have personally provided greater than 30 minutes of critical care time exclusive of the time spend on separately billable procedures. Time includes obtaining a history, examining the patient, pulse oximetry, review of laboratory data, radiology results, discussion with consultants, arranging urgent treatment with development of a management plan, evaluation of patient's response to treatment, and monitoring for potential decompensation. Interventions were performed as documented above.
[2020-01-08 11:31] LABS: Lactate 1.3 mmol/L (0.6-1.4)
[2020-01-08 11:54] LABS: ALT 35 U/L (16-63); AST 25 U/L (15-37); Albumin 3.2 g/dL (3.4-5.0); Alkaline Phosphatase 101 U/L (46-116); BUN 21 mg/dL (7-18); Bilirubin, Total 0.3 mg/dL (0.2-1.0); CREATININE 1.15 mg/dL (0.70-1.30); Calcium 8.1 mg/dL (8.5-10.1); Chloride 106 mmol/L (98-107); Glucose 129 mg/dL (74-106); Sodium 144 mmol/L (136-145); Total Protein 6.9 g/dL (6.4-8.2)
[2020-01-08] MEDS: Normal Saline 1,000 ML 1000 ML IV (11:55)
[2020-01-08] MEDS: Lidocaine 2% Jelly 11 ML SYR (11:55)
[2020-01-08 12:01] LABS: Abs Immature Grans 0.01 k/cumm (0.0-0.09); Absolute Basophil Count 0.02 k/cumm (0.0-0.2); Absolute Eosinophil Count 0.03 k/cumm (0.0-0.7); Absolute Lymphocyte Count 0.76 k/cumm (1.2-3.4); Absolute Monocyte Count 0.33 k/cumm (0.11-0.7); Basophils % 0.4; Eosinophils % 0.7; HCT 39.5 % (40.0-50.0); HGB 12.6 g/dL (13.5-17.5); Immature Grans % 0.2 %; Lymphocytes % 17.1; Mean Corp. HGB Concentration 31.9 g/dL (32.0-36.0); Mean Corpuscular Volume 112.9 fL (80-95); Monocytes % 7.4; Neutrophils % 74.2; Platelet Count 250 x1000/uL (130-400); White Blood Cell Count 4.45 k/cumm (4.4-10.8)
[2020-01-08 12:05] LABS: Prothrombin Time 10.4 sec (9.3-11.0)
[2020-01-08 12:08] LABS: Bilirubin Negative (Negative); Blood Trace-intact (Negative); Clarity Clear (Clear); Glucose Negative (Negative); Ketones Negative (Negative); Leukocyte Esterase Negative (Negative); Nitrite Negative (Negative); Specific Gravity >= 1.030 (1.005-1.025); Urobilinogen 0.2 EU/dL (Up TO 0.2); pH 5.5 (5-8)
[2020-01-08 12:14] LABS: Bacteria Rare HPF (Negative); C & S Indicated? No; Casts Negative LPF (Negative); Crystals Negative HPF (Negative); Epithelial Cells Rare HPF (Negative); Mucus Trace (Negative); WBC 0-2 HPF (0-5)
[2020-01-08] MEDS: cefTRIAXone 2 GM/50 ML BAG IVPB (12:25)
[2020-01-08 12:29] LABS: Troponin I < 0.05 ng/Ml (<0.06)
[2020-01-08] MEDS: Lidocaine 2% Jelly 6 ML SYR (15:00)
[2020-01-08] MEDS: Albuterol/Ipratropium 3 ML UPD VIAL UPD ×2 (15:30→21:12)
[2020-01-08 15:32] LABS: BE 7.5 mmol/L (-3-3); HCO3 35 mmol/L (22-28); pH 7.22 (7.35-7.45); pO2 112 mmHg (83-108); sO2 97 % (94-98); tCO2 33 mmol/L (22-29)
[2020-01-08] MEDS: methylPREDNISolone SUCC 125 MG VIAL IVP (15:35)
[2020-01-08 15:37] LABS: FIO2L 10 L; Site Right Radial; pCO2 87 mmHg (34-47)
[2020-01-08] MEDS: levoFLOXacin 750 MG/150 ML BAG 100 MG IVPB (15:40)
[2020-01-08] MEDS: Normal Saline Flush 10 ML SYR IVP (15:49)
[2020-01-08 15:50] LABS: NT-proBNP 4215 pg/mL (<300)
--- NOTE | 2020-01-08 16:19 | NUR.NOTE ---
fentanyl patch taken off. Nursing Note:
[2020-01-08 17:34] LABS: BE 6.9 mmol/L (-3-3); HCO3 33 mmol/L (22-28); pH 7.31 (7.35-7.45); pO2 64 mmHg (83-108); sO2 91 % (94-98); tCO2 31 mmol/L (22-29)
[2020-01-08 17:38] LABS: FIO2 35 %; Site Right Radial; pCO2 66 mmHg (34-47)
--- NOTE | 2020-01-08 18:44 | HPE_ITS ---
Date of service: 01/08/20 Time of Service: 18:00 Assessment and Plan Assessment and plan (1) Acute respiratory failure with hypoxia and hypercapnia: Status: Acute (2) Acute congestive heart failure: Status: Suspected Assessment and plan: Of note he has new T wave abnormalities and an elevated proBNP of 4200. His previous BNP on file was from May 01, 2019 with 1600. He denies any chest pain or pressure and his initial troponin was negative. However a 3-hour troponin was not obtained. I am going to get a stat troponin and repeat his EKG to see if there is any progressive changes consistent with acute infarct or ischemia. I will get an echocardiogram on him in the morning and give him some IV diuretics tonight and repeat his labs in the morning. We will continue to support him with noninvasive positive pressure ventilation. Qualifiers: Heart failure type: unspecified Qualified Code(s): I50.9 - Heart failure, unspecified (3) Pneumonia: Status: Suspected Assessment and plan: The evidence for pneumonia is minimal at best. His reports he has had a fever but it was low-grade at most around 100. He has not been producing any sputum while his chest x-ray was read as showing infiltrates the radiologist was hedging his diagnosis calling a possible atelectasis versus CHF versus infiltrates. Patient has no elevated white count and is currently afebrile here. Technically if this is a pneumonia should be considered healthcare acquired pneumonia. I am in a check him for MRSA colonization but not start vancomycin. I will continue the ceftriaxone and Levaquin pending his blood cultures results. He will continue with aerosolized bronchodilators. I will repeat his labs in the morning and get a procalcitonin tonight along with a repeat troponin level. Patient will remain in reverse airflow precaution until his COVID-19 test comes back negative. The patient did not have strong reasons for having a COVID-19 screening test. Qualifiers: Pneumonia type: due to unspecified organism Laterality: bilateral Lung location: lower lobe of lung Qualified Code(s): J18.9 - Pneumonia, unspecified organism (4) Metastatic malignant neoplasm to prostate: Status: Chronic Assessment and plan: Up with the patient's immunosuppressive medications ( lynparza and denosumab) on hold while he is receiving antibiotics. If there is no evidence for infection then I will resume his anti-neoplastic agents. (5) Hypertension: Status: Chronic Assessment and plan: Continue his home medications of lisinopril metoprolol. We will give him IV Lasix instead of oral Lasix. 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 (7) Altered mental status: Status: Acute Assessment and plan: Secondary to hypercarbic and hypoxemic respiratory failure now resolving with use of BiPAP History of Present Illness History of Present Illness Chief Complaint: fever, cough, confusion Narrative: 79-year-old male with a past medical history of metastatic prostate cancer with mets to his spine, essential hypertension, peripheral neuropathy who was hospitalized at [facility] from December 04, 2019 through December 07, 2019 with acute toxic metabolic encephalopathy secondary to sepsis and community-acquired pneumonia. At that time blood culture showed no growth he was treated with ceftriaxone and doxycycline. His influenza test was negative. Upon discharge she received 5 more days of doxycycline. According to his the patient been doing fine up until 2 days ago when he began with a nonproductive cough and a low-grade fever. As far as night sweats he always has the symptoms secondary to his metastatic prostate cancer and his anti-hormonal treatment. Cough is been nonproductive. The patient has not traveled outside of the country nor has he been exposed to anybody who was tested positive for COVID-19. He and his do have a family friend that lives with them who recently traveled to [facility]. Diagnostic work-up in the emergency room included a portable chest x-ray that was severely limited exam but demonstrated bibasilar densities floor representative of infiltrates versus atelectasis versus pulmonary edema. When compared to his prior chest x-ray from December 04, 2019 there did not appear to be a significant change. CBC did not reveal leukocytosis. Total white cell count was 4450. There is no leftward shift in his white cell differential. CMP was remarkable for CO2 retention with a carbon dioxide level of 39 with a reduced anion gap of -1. BUN was elevated 21 creatinine is 1.15. LFTs were normal. proBNP is elevated 4215 his troponin is less than 0.05. ECG demonstrated anterolateral T wave changes that are new and were not present on September 13, 2019. However he denies any chest pain or pressure. Influenza swab was negative. Review of Systems All systems reviewed & are unremarkable except as noted in HPI and below [facility] Medical History Bone metastases (Acute) Chronic kidney disease, stage 3 Decubital ulcer (Chronic) Edema (Resolved) Hx of acute renal failure Hyperlipidemia (Chronic) Hypertension (Chronic) Left foot pain (Resolved) Left rotator cuff tear (Chronic) Lichen sclerosus (Acute) Memory loss (Chronic) Metastatic malignant neoplasm to prostate (Chronic) Mononeuropathy of left lower extremity Peripheral edema 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) Physeal fracture of phalanx of toe of left foot Pressure ulcer Buttocks TBI (traumatic brain injury) (Acute) Family History Mother Lung cancer Social History Smoking/Tobacco Use Status: Never Alcohol Intake: never Drug use: Never Substance use type: does not use Household members: spouse Number of Children: 2 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; [employer]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 Do you feel safe at home: Yes Do you feel safe in your relationship?: Yes Additional Social history: Moved from [place] to [place] in 2017 to be cared for by ( x10 years previously) Meds Home Medications and Allergies Home Medications Medication Instructions Recorded Confirmed Type Lupron Depot (4 month) 30 mg IM .Q4 months 09/25/17 01/08/20 History ascorbic acid (vitamin C) [Vitamin 1,000 mg PO DAILY 09/25/17 01/08/20 History C] furosemide 20 mg PO DAILY tab-cap 09/25/17 01/08/20 History metoprolol succinate 100 mg PO DAILY tab-cap 09/25/17 01/08/20 History calcium carbonate-vitamin D3 500 5 ml PO DAILY ml 12/10/18 01/08/20 History mg calcium-400 unit/5 mL oral liquid denosumab 120 mg/1.7 mL (70 mg/mL) 120 mg SC Q6W 12/10/18 01/08/20 History subcutaneous solution fluticasone propionate 50 1 spray BRIAN DAILY 12/10/18 01/08/20 History mcg/actuation nasal spray,suspension gabapentin 300 mg capsule 600 mg PO TID tab-cap 12/10/18 01/08/20 History lisinopril 5 mg tablet 10 mg PO DAILY #2 tab-cap 12/10/18 01/08/20 History multivitamin 1 tab PO DAILY 12/10/18 01/08/20 History clotrimazole 1 applic TOPICAL TID #30 gm 09/15/19 01/08/20 Rx vits A and D-white pet-lanolin 1 applic TOPICAL TID #56 gm 09/15/19 01/08/20 Rx zinc oxide 1 applic TOPICAL TID #30 gm 09/15/19 01/08/20 Rx Lynparza 300 mg PO BID #0 tab 12/07/19 01/08/20 Rx doxycycline hyclate 100 mg PO BID #10 tab 12/07/19 01/08/20 Rx fentanyl [Duragesic] 75 mcg TRANSDERMAL Q72H #5 each 12/07/19 01/08/20 Rx Allergies Allergy/AdvReac Type Severity Reaction Status Date / Time No Known Drug Allergies Allergy Unverified 01/08/20 13:09 Exam Narrative Exam Narrative: Elderly obese male who [facility]. He is now alert and oriented to person but not to place or time or circumstance. He denies any chest pain or pressure and denies shortness of breath. Overall he says he feels better HEENT is unremarkable. Neck is supple nontender with normal carotid pulses no overt JVD Heart and lung exam could not be completed because the patient underwent testing for COVID-19 and I had to wear a prohibitive personal protective equipment that include a Papper. Palpation of his chest reveals tactile fremitus at both bases he has symmetrical movement of his chest wall with inspiration. Apical impulse is nondisplaced and there is no left ventricular heave or thrill. Abdomen is obese soft and nontender. Lower extremities reveal loss of hair over both shins with taut shiny skin. He has 2+ leg edema. He has a shallow healing ulcer over the dorsum of his left second toe with no purulent drainage and no induration or erythema. Pedal pulses were nonpalpable. There is no peripheral cyanosis. Neurologic exam is nonfocal he has no facial asymmetry no dysarthric speech and he has normal range of motion and strength in all 4 extremities. Results Labs Result diagrams: 01/08/20 11:25 01/08/20 11:25 Labs: Laboratory Results - last 24 hr 01/08/20 01/08/20 01/08/20 11:25 11:25 11:25 WBC 4.45 RBC 3.50 L Hgb 12.6 L Hct 39.5 L MCV 112.9 H MCH 36.0 H MCHC 31.9 L RDW 21.0 H Plt Count 250 MPV 9.0 Immature Gran % 0.2 Neutrophils % 74.2 Lymphocytes % 17.1 Monocytes % 7.4 Eosinophils % 0.7 Basophils % 0.4 Absolute Neutrophils 3.30 Absolute Lymphocytes 0.76 L Absolute Monocytes 0.33 Absolute Eosinophils 0.03 Absolute Basophils 0.02 PT INR ABG Sample Site ABG pH ABG pCO2 ABG pO2 ABG HCO3 ABG Total CO2 ABG O2 Saturation ABG Base Excess Oxygen Liter Flow FiO2 Sodium 144 Potassium 5.0 Chloride 106 Carbon Dioxide 39.0 H Anion Gap -1.0 L BUN 21 H Creatinine 1.15 Estimated GFR/1.73 m2 >= 60.00 Glucose 129 H Lactate 1.3 Calcium 8.1 L Total Bilirubin 0.3 AST 25 ALT 35 Alkaline Phosphatase 101 Troponin I NT-Pro-B Natriuret Pep Total Protein 6.9 Albumin 3.2 L Urine Color Urine Clarity Urine pH Ur Specific [place] Urine Protein Urine Ketones Urine Blood Urine Nitrite Urine Bilirubin Urine Urobilinogen Ur Leukocyte Esterase Urine RBC Urine WBC Ur Epithelial Cells Urine Crystals Urine Bacteria Urine Casts Urine Mucus Ur Culture Indicated? Urine Glucose 01/08/20 01/08/20 01/08/20 11:25 11:25 11:25 WBC RBC Hgb Hct MCV MCH MCHC RDW Plt Count MPV Immature Gran % Neutrophils % Lymphocytes % Monocytes % Eosinophils % Basophils % Absolute Neutrophils Absolute Lymphocytes Absolute Monocytes Absolute Eosinophils Absolute Basophils PT 10.4 INR 1.0 ABG Sample Site ABG pH ABG pCO2 ABG pO2 ABG HCO3 ABG Total CO2 ABG O2 Saturation ABG Base Excess Oxygen Liter Flow FiO2 Sodium Potassium Chloride Carbon Dioxide Anion Gap BUN Creatinine Estimated GFR/1.73 m2 Glucose Lactate Calcium Total Bilirubin AST ALT Alkaline Phosphatase Troponin I < 0.05 NT-Pro-B Natriuret Pep 4215 H Total Protein Albumin Urine Color Urine Clarity Urine pH Ur Specific [place] Urine Protein Urine Ketones Urine Blood Urine Nitrite Urine Bilirubin Urine Urobilinogen Ur Leukocyte Esterase Urine RBC Urine WBC Ur Epithelial Cells Urine Crystals Urine Bacteria Urine Casts Urine Mucus Ur Culture Indicated? Urine Glucose 01/08/20 01/08/20 01/08/20 11:55 15:30 17:30 WBC RBC Hgb Hct MCV MCH MCHC RDW Plt Count MPV Immature Gran % Neutrophils % Lymphocytes % Monocytes % Eosinophils % Basophils % Absolute Neutrophils Absolute Lymphocytes Absolute Monocytes Absolute Eosinophils Absolute Basophils PT INR ABG Sample Site Right radial Right radial ABG pH 7.22 L 7.31 L ABG pCO2 87 H* 66 H* ABG pO2 112 H 64 L ABG HCO3 35 H 33 H ABG Total CO2 33 H 31 H ABG O2 Saturation 97 91 L ABG Base Excess 7.5 H 6.9 H Oxygen Liter Flow 10 Bipap 13/6 FiO2 Oxymask 35 Sodium Potassium Chloride Carbon Dioxide Anion Gap BUN Creatinine Estimated GFR/1.73 m2 Glucose Lactate Calcium Total Bilirubin AST ALT Alkaline Phosphatase Troponin I NT-Pro-B Natriuret Pep Total Protein Albumin Urine Color Yellow Urine Clarity Clear Urine pH 5.5 Ur Specific [place] >= 1.030 H Urine Protein 100 H Urine Ketones Negative Urine Blood Trace-intact H Urine Nitrite Negative Urine Bilirubin Negative Urine Urobilinogen 0.2 Ur Leukocyte Esterase Negative Urine RBC 3-5 H Urine WBC 0-2 Ur Epithelial Cells Rare Urine Crystals Negative Urine Bacteria Rare Urine Casts Negative Urine Mucus Trace Ur Culture Indicated? No Urine Glucose Negative Last Vital Signs Temp 37.1 C 01/08/20 11:33 Pulse 60 01/08/20 17:48 Resp 10 L 01/08/20 17:48 BP 117/45 L 01/08/20 13:46 Pulse Ox 95 01/08/20 17:48
[2020-01-08 19:39] LABS: Troponin I < 0.05 ng/Ml (<0.06)
[2020-01-08 20:14] LABS: Procalcitonin < 0.1 ng/mL
[2020-01-08] MEDS: fentaNYL 75 MCG PATCH TD (21:12)
[2020-01-08] MEDS: Furosemide 40 MG/4 ML VIAL IVP (21:12)
[2020-01-09] VITALS (14 sets, daily range): BP systolic 139–184; BP diastolic 64–79; PULSE 63–99; RESP 1–22; TEMP 36.5–37; O2SAT 92–99
[2020-01-09] MEDS: Albuterol/Ipratropium 3 ML UPD VIAL UPD ×4 (06:55→18:14)
[2020-01-09 07:10] LABS: Abs Immature Grans 0.01 k/cumm (0.0-0.09); Absolute Monocyte Count 0.11 k/cumm (0.11-0.7); Absolute Neutrophil Count 2.66 k/cumm (1.2-6.7); HCT 38.5 % (40.0-50.0); HGB 12.5 g/dL (13.5-17.5); Immature Grans % 0.3 %; Lymphocytes % 15.2; Mean Corp. HGB Concentration 32.5 g/dL (32.0-36.0); Mean Corpuscular Hemoglobin 35.8 pg (27.0-33.0); Mean Corpuscular Volume 110.3 fL (80-95); Mean Platelet Volume 9.4 fL (8.0-11.0); Monocytes % 3.4; Neutrophils % 81.1; Platelet Count 220 x1000/uL (130-400); RBC 3.49 m/cumm (4.50-6.00); RBC Distribution Width 19.9 % (11.8-14.1); White Blood Cell Count 3.28 k/cumm (4.4-10.8)
[2020-01-09 07:27] LABS: Anion Gap 3.5 mmol/L (3-11); BUN 25 mg/dL (7-18); CO2 34.5 mmol/L (21.0-32.0); CREATININE 1.13 mg/dL (0.70-1.30); Calcium 7.7 mg/dL (8.5-10.1); Chloride 107 mmol/L (98-107); Glucose 161 mg/dL (74-106); Magnesium 2.4 mg/dL (1.8-2.4); Potassium 4.5 mmol/L (3.5-5.1); Sodium 145 mmol/L (136-145); Troponin I < 0.05 ng/Ml (<0.06)
[2020-01-09 09:15] LABS: BE 8.4 mmol/L (-3-3); HCO3 33 mmol/L (22-28); pCO2 56 mmHg (34-47); pH 7.39 (7.35-7.45); pO2 65 mmHg (83-108); sO2 93 % (94-98); tCO2 31 mmol/L (22-29)
[2020-01-09 09:18] LABS: FIO2L 5 L; Site Left Radial
[2020-01-09] MEDS: Enoxaparin 40 MG/0.4 ML SYR SC (09:55)
[2020-01-09] MEDS: Furosemide 40 MG/4 ML VIAL IVP ×2 (10:12→18:13)
[2020-01-09] MEDS: Normal Saline Flush 10 ML SYR IVP (10:12)
[2020-01-09] MEDS: cefTRIAXone 2 GM/50 ML BAG IVPB (12:32)
--- NOTE | 2020-01-09 12:37 | NUR.NOTE ---
Nursing Note: Pt requesting all 4 rails up at this time.
--- NOTE | 2020-01-09 15:19 | PHA.ADMREV ---
Pharmacy Clinical Review - Admission Clinical Review (Last Updated 01/08/20 @ 19:01 by Festus Galarza) Acute respiratory failure with hypoxia and hypercapnia (Acute) Altered mental status (Acute) Hypoxia (Acute) No Known Drug Allergies Allergy (Unverified 01/08/20 13:09) Weight 99.6 kg - Renal Dosing Renal Dosing: BUN 25 mg/dL (7-18) H 01/09/20 06:45 Creatinine 1.13 mg/dL (0.70-1.30) 01/09/20 06:45 Medications needing adjustments: Reviewed (CrCl ~94 based on adjusted body weight) - Anticoagulation Anticoagulation: Hgb 12.5 g/dL (13.5-17.5) L 01/09/20 06:45 Hct 38.5 % (40.0-50.0) L 01/09/20 06:45 Plt Count 220 x1000/uL (130-400) 01/09/20 06:45 INR 1.0 (0.9-1.1) 01/08/20 11:25 Creatinine 1.13 mg/dL (0.70-1.30) 01/09/20 06:45 DVT Prohphylaxis: Reviewed Medications: Enoxaparin - Opiate Usage Evaluate Pain Scale/Pains Meds: Reviewed Scheduled Bowel Reg ordered if on Opiates?: No - Relevant Labs Sodium 145 mmol/L (136-145) 01/09/20 06:45 Potassium 4.5 mmol/L (3.5-5.1) 01/09/20 06:45 Chloride 107 mmol/L (98-107) 01/09/20 06:45 Magnesium 2.4 mg/dL (1.8-2.4) 01/09/20 06:45 Electrolytes, C-Reactive P, ESR: Reviewed - Antimicrobial Stewardship Antibiotic appropriateness: Reviewed (Ceftriaxone + levaquin) Culture review/Resistance: Reviewed (flu negative; sputum and blood pending; COVID19 test also pending; Procalcitonin is <0.1) - DM Control DM Control: Glucose 161 mg/dL (74-106) H 01/09/20 06:45 Insulin Dosing: N/A - Heart Failure/NV Heart Failure/NV: Troponin I < 0.05 ng/Ml (<0.06) 01/09/20 06:45 NT-Pro-B Natriuret Pep 4215 pg/mL (<300) H 01/08/20 11:25 EF%, TEDDY's, B-Blockers, Diuretics: Reviewed (Home meds: furosemide, metoprlol, lisinopril) - BP Control BP Control: Blood Pressure 148/64 Blood Pressure 142/71 Blood Pressure 155/78 Blood Pressure 171/74 Blood Pressure 156/73 If elevated: Reviewed (BP meds haven't been ordered yet) - QTc Review If Elevated: Reviewed (QTc 453) - IV to PO Switch IV Medications: Reviewed - Home Meds Home Med List reviewed: Intervened (Notfied MD that home meds that were stated to be continued in progress note have not been ordered yet (gabapentin, metoprolol, lisinopril)) Relevent Home Meds Not ordered & why?: Vitamin C, calc-D, flonase, furosemide, gabapentin, lisinopril, metoprolol, mtv - Current meds Current Medication Order Review: Reviewed - Comments Comments/Follow Ups: Evidence is unlikely for PNA, if it is it would be considered HCAP due to recent admission; will continue nebs and continue abx pending blood culture results
--- NOTE | 2020-01-09 16:14 | PDOC.CMIN ---
- If Service Date Differs Date of service: 01/09/20 Time of Service: 16:14 Care Management Initial Assess REASON FOR HOSPITALIZATION:: Acute respiratory failure PAST MEDICAL HISTORY/PAST SURGICAL HISTORY:: Medical History : Bone metastases (Acute). Chronic kidney disease, stage 3. Decubital ulcer (Chronic). Edema (Resolved). Hx of acute renal failure. Hyperlipidemia (Chronic). Hypertension (Chronic). Left foot pain (Resolved). Left rotator cuff tear (Chronic). Lichen sclerosus (Acute). Memory loss (Chronic). Metastatic malignant neoplasm to prostate (Chronic). Mononeuropathy of left lower extremity. Peripheral edema. 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 Physeal fracture of phalanx of toe of left foot. Pressure ulcer. Buttocks. TBI (traumatic brain injury) (Acute) PREVIOUS FUNCTIONAL STATUS/SOCIAL/FAMILY SUPPORTS:: Lester lives with his Alva in [place], [place] in a single family home. They do have a boarder who helps with meals and other tasks around the home. 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 He uses a walker to ambulate. His mobility is very limited due to his neuropathy. He needs assistance with care which his spouse provides. CURRENT FUNCTIONAL STATUS:: Lester was sitting up in bed when CM came to see him. His isolation had just been discontinued and the doctor was examining him. CM will visit him again in the morning for further conversation. ADVANCE DIRECTIVES:: none on file Has patient been provided with information about the portal?: No Did the patient sign up for the portal?: No CODE STATUS:: DNR/DNI INSURANCE COVERAGE / FINANCIAL ISSUES:: Medicare. AARP CURRENT HOME/COMMUNITY SERVICES/EQUIPMENT:: FWW, 4WW, transport chair, shower bench, grab bars PRIMARY CARE PHYSICIAN:: Dr. Leslie POTENTIAL DISCHARGE NEEDS:: Follow up with providers and discharge plan of care PATIENT/FAMILY EDUCATION NEEDS:: Discharge plan, limitations, follow up plan and Ask Me Three. TRANSPORTATION:: via private vehicle with family PLAN:: Lester will likely be discharged home with no new services. He will follow up with. his PCP and discharge plan of care. CM will continue to provide support to patient, family and discharge planning needs.
[2020-01-09 16:24] LABS: COVID-19 RT-PCR Result See Comments
--- NOTE | 2020-01-09 16:47 | W.PM.PROGNOT ---
Date of Service Date of service: 01/09/20 Time of Service: 16:47 Assessment and Plan Assessment and plan (1) Acute congestive heart failure: Status: Suspected Assessment and plan: I suspect he had decompensated acute on chronic heart failure with preserved ejection fraction. For now we will continue IV Lasix until he is euvolemic. I have resumed his lisinopril and his Toprol-XL. We will get the results of his formal echocardiogram in the morning but the preliminary [id number] ultrasound suggests preserved LV and RV function. I recommended to the that he have a follow-up sleep study as an outpatient because if he has sleep apnea then proper treatment with CPAP or BiPAP may be lifesaving and prevent complications such as atrial fibrillation strokes or heart attacks or sudden . Qualifiers: Heart failure type: unspecified Qualified Code(s): I50.9 - Heart failure, unspecified (2) Acute respiratory failure with hypoxia and hypercapnia: Status: Resolved Assessment and plan: His acute respiratory failure has resolved with diuresis and use of noninvasive positive pressure ventilation. Again I recommend he have a formal sleep study upon discharge to get qualified for home CPAP. (3) Altered mental status: Status: Resolved Qualifiers: Altered mental status type: disorientation Qualified Code(s): R41.0 - Disorientation, unspecified (4) Pneumonia: Status: Ruled-out Assessment and plan: no evidence for infectious process (i.e. no fever, leukocytosis, normal procalcitonin and lactate), no lung consolidation on POCUS but rather small bilateral pleural effusions; B lines and high BNP all c/w CHF. POCUS demonstrates normal RV and LV function. I am dc'ing his iv antibiotics but will continue iv diuretics for next 24hrs then switch to oral lasix. Will titrate his lisinopril. Qualifiers: Pneumonia type: due to unspecified organism Laterality: bilateral Lung location: lower lobe of lung Qualified Code(s): J18.9 - Pneumonia, unspecified organism (5) Hypertension: Status: Chronic Assessment and plan: Resume his home dose of lisinopril and metoprolol. Qualifiers: Hypertension type: essential hypertension Qualified Code(s): I10 - Essential (primary) hypertension (6) Metastatic malignant neoplasm to prostate: Status: Chronic Assessment and plan: We can resume his antineoplastics now that we have ruled out an acute infectious process. Subjective Subjective Interval history since last seen: Patient is feeling markedly better today. He denies dyspnea. He is alert and oriented and is currently off his BiPAP mask. He is wearing nasal cannula at 4 L/min with an oxygen saturation of 94%. He has had a net negative diuresis of -1200 mL since admission. His white count remains within normal limits at 3200. H&H is stable at 12.5 and 38%. BMP today's BUN is 25 creatinine 1.13. Electrolytes are normal although he has an elevated carbon dioxide at 34.5 which is chronic. Repeat blood gas this morning performed on 5 L nasal cannula demonstrated pH 7.39 with a PCO2 of 56 and a PO2 of 65. I suspect they never had pneumonia but in fact had diastolic heart failure and probably has underlying obstructive sleep apnea. I have ordered an echocardiogram to be done today but as of 5 PM it still has not been performed or read. I performed a bedside [id number] ultrasound on him and my impression is that he has vigorous LV and RV function. However he has evidence of LVH particular with septal wall thickening. However I am not seeing signs of RV pressure overload as there is no D-shaped deformity to the interventricular septum. There is no apical overriding of the RV apex onto the LV apex. Furthermore the patient's procalcitonin level and lactate level were normal last night and his CBC continues to show a normal leukocyte count. He has had no fevers overnight. Exam Narrative Exam Narrative: Elderly obese male who is pleasant to converse with he sitting up in his bed watching TV he is answering questions appropriately and is very cooperative with the exam. He denies any dyspnea or chest discomfort. Lungs reveal bibasilar rales upper sosa are clear no rhonchi or wheezing. Heart is regular without audible murmur rub or gallop. No thrill or heave. Abdomen is obese soft and nontender. Legs with 2+ pitting edema. Objective Objective Clinical Data: Abnormal lab results 01/08/20 01/09/20 01/09/20 Range/Units 17:30 06:45 06:45 WBC 3.28 L (4.4-10.8) k/cumm RBC 3.49 L (4.50-6.00) m/cumm Hgb 12.5 L (13.5-17.5) g/dL Hct 38.5 L (40.0-50.0) % MCV 110.3 H (80-95) fL MCH 35.8 H (27.0-33.0) pg RDW 19.9 H (11.8-14.1) % Absolute Lymphocytes 0.50 L (1.2-3.4) k/cumm ABG pH 7.31 L (7.35-7.45) ABG pCO2 66 H* (34-47) mmHg ABG pO2 64 L (83-108) mmHg ABG HCO3 33 H (22-28) mmol/L ABG Total CO2 31 H (22-29) mmol/L ABG O2 Saturation 91 L (94-98) % ABG Base Excess 6.9 H (-3-3) mmol/L Carbon Dioxide 34.5 H (21.0-32.0) mmol/L BUN 25 H (7-18) mg/dL Glucose 161 H (74-106) mg/dL Calcium 7.7 L (8.5-10.1) mg/dL 01/09/20 Range/Units 09:04 WBC (4.4-10.8) k/cumm RBC (4.50-6.00) m/cumm Hgb (13.5-17.5) g/dL Hct (40.0-50.0) % MCV (80-95) fL MCH (27.0-33.0) pg RDW (11.8-14.1) % Absolute Lymphocytes (1.2-3.4) k/cumm ABG pH (7.35-7.45) ABG pCO2 56 H (34-47) mmHg ABG pO2 65 L (83-108) mmHg ABG HCO3 33 H (22-28) mmol/L ABG Total CO2 31 H (22-29) mmol/L ABG O2 Saturation 93 L (94-98) % ABG Base Excess 8.4 H (-3-3) mmol/L Carbon Dioxide (21.0-32.0) mmol/L BUN (7-18) mg/dL Glucose (74-106) mg/dL Calcium (8.5-10.1) mg/dL Vital Signs Temperature 36.9 C 01/09/20 12:29 Temperature Source Tympanic 01/09/20 12:29 Pulse 99 H 01/09/20 12:29 Pulse Rhythm Regular 01/09/20 08:23 Pulse 62 01/08/20 19:10 Respiratory Rate 20 01/09/20 12:29 Respiratory Effort 01/09/20 08:23 Respiratory Depth Normal 01/09/20 08:23 Respiratory Pattern Normal 01/09/20 08:23 Blood Pressure 148/64 H 01/09/20 12:29 Blood Pressure Mean 96 01/08/20 19:01 Blood Pressure Position Supine 01/08/20 11:33 Pulse Oximetry 94 L 01/09/20 12:29 Respiratory End-tidal CO2 23 01/08/20 12:40 Oxygen Delivery Method Nasal Cannula 01/09/20 12:29 Oxygen Flow Rate 4 01/09/20 12:29 Fraction of Inspired Oxygen (FIO2) 40 01/09/20 11:28 Pain Level 0 01/09/20 10:03 Intake & Output 01/08/20 01/09/20 01/09/20 23:59 11:59 23:59 Intake Total 1050 / 1050 360 / 720 360 / 720 Output Total 1700 / 1700 525 / 1325 800 / 1325 Balance -650 / -650 -165 / -605 -440 / -605 Weight 99.6 kg 99.6 kg Intake: IV 1050 / 1050 Oral 360 / 720 360 / 720 Output: Urine 1700 / 1700 525 / 1325 800 / 1325 Other: Urine Color Yellow Yellow Yellow Urine Appearance Clear Clear Clear Laboratory Results WBC 3.28 k/cumm (4.4-10.8) L 01/09/20 06:45 RBC 3.49 m/cumm (4.50-6.00) L 01/09/20 06:45 Hgb 12.5 g/dL (13.5-17.5) L 01/09/20 06:45 Hct 38.5 % (40.0-50.0) L 01/09/20 06:45 MCV 110.3 fL (80-95) H 01/09/20 06:45 MCH 35.8 pg (27.0-33.0) H 01/09/20 06:45 MCHC 32.5 g/dL (32.0-36.0) 01/09/20 06:45 RDW 19.9 % (11.8-14.1) H 01/09/20 06:45 Plt Count 220 x1000/uL (130-400) 01/09/20 06:45 MPV 9.4 fL (8.0-11.0) 01/09/20 06:45 Immature Gran % 0.3 % 01/09/20 06:45 Neutrophils % 81.1 01/09/20 06:45 Lymphocytes % 15.2 01/09/20 06:45 Monocytes % 3.4 01/09/20 06:45 Eosinophils % 0.0 01/09/20 06:45 Basophils % 0.0 01/09/20 06:45 Absolute Neutrophils 2.66 k/cumm (1.2-6.7) 01/09/20 06:45 Absolute Lymphocytes 0.50 k/cumm (1.2-3.4) L 01/09/20 06:45 Absolute Monocytes 0.11 k/cumm (0.11-0.7) 01/09/20 06:45 Absolute Eosinophils 0.00 k/cumm (0.0-0.7) 01/09/20 06:45 Absolute Basophils 0.00 k/cumm (0.0-0.2) 01/09/20 06:45 PT 10.4 sec (9.3-11.0) 01/08/20 11:25 INR 1.0 (0.9-1.1) 01/08/20 11:25 ABG Sample Site Left radial 01/09/20 09:04 ABG pH 7.39 (7.35-7.45) 01/09/20 09:04 ABG pCO2 56 mmHg (34-47) H 01/09/20 09:04 ABG pO2 65 mmHg (83-108) L 01/09/20 09:04 ABG HCO3 33 mmol/L (22-28) H 01/09/20 09:04 ABG Total CO2 31 mmol/L (22-29) H 01/09/20 09:04 ABG O2 Saturation 93 % (94-98) L 01/09/20 09:04 ABG Base Excess 8.4 mmol/L (-3-3) H 01/09/20 09:04 Oxygen Liter Flow 5 L 01/09/20 09:04 FiO2 35 % 01/08/20 17:30 Sodium 145 mmol/L (136-145) 01/09/20 06:45 Potassium 4.5 mmol/L (3.5-5.1) 01/09/20 06:45 Chloride 107 mmol/L (98-107) 01/09/20 06:45 Carbon Dioxide 34.5 mmol/L (21.0-32.0) H 01/09/20 06:45 Anion Gap 3.5 mmol/L (3-11) 01/09/20 06:45 BUN 25 mg/dL (7-18) H 01/09/20 06:45 Creatinine 1.13 mg/dL (0.70-1.30) 01/09/20 06:45 Estimated GFR/1.73 m2 >= 60.00 (mL/min/1.73m2) 01/09/20 06:45 Glucose 161 mg/dL (74-106) H 01/09/20 06:45 Lactate 1.3 mmol/L (0.6-1.4) 01/08/20 11:25 Calcium 7.7 mg/dL (8.5-10.1) L 01/09/20 06:45 Magnesium 2.4 mg/dL (1.8-2.4) 01/09/20 06:45 Total Bilirubin 0.3 mg/dL (0.2-1.0) 01/08/20 11:25 AST 25 U/L (15-37) 01/08/20 11:25 ALT 35 U/L (16-63) 01/08/20 11:25 Alkaline Phosphatase 101 U/L (46-116) 01/08/20 11:25 Troponin I < 0.05 ng/Ml (<0.06) 01/09/20 06:45 NT-Pro-B Natriuret Pep 4215 pg/mL (<300) H 01/08/20 11:25 Total Protein 6.9 g/dL (6.4-8.2) 01/08/20 11:25 Albumin 3.2 g/dL (3.4-5.0) L 01/08/20 11:25 Procalcitonin < 0.1 ng/mL 01/08/20 19:10 Urine Color Yellow (Yellow) 01/08/20 11:55 Urine Clarity Clear (Clear) 01/08/20 11:55 Urine pH 5.5 (5-8) 01/08/20 11:55 Ur Specific Carlton >= 1.030 (1.005-1.025) H 01/08/20 11:55 Urine Protein 100 mg/dL (Negative) H 01/08/20 11:55 Urine Ketones Negative mg/dL (Negative) 01/08/20 11:55 Urine Blood Trace-intact (Negative) H 01/08/20 11:55 Urine Nitrite Negative (Negative) 01/08/20 11:55 Urine Bilirubin Negative (Negative) 01/08/20 11:55 Urine Urobilinogen 0.2 EU/dL (Up TO 0.2) 01/08/20 11:55 Ur Leukocyte Esterase Negative (Negative) 01/08/20 11:55 Urine RBC 3-5 HPF (0-2) H 01/08/20 11:55 Urine WBC 0-2 HPF (0-5) 01/08/20 11:55 Ur Epithelial Cells Rare HPF (Negative) 01/08/20 11:55 Urine Crystals Negative HPF (Negative) 01/08/20 11:55 Urine Bacteria Rare HPF (Negative) 01/08/20 11:55 Urine Casts Negative LPF (Negative) 01/08/20 11:55 Urine Mucus Trace (Negative) 01/08/20 11:55 Ur Culture Indicated? No 01/08/20 11:55 Urine Glucose Negative mg/dL (Negative) 01/08/20 11:55 Coronavirus (PCR) See comments 01/08/20 14:05
[2020-01-09] MEDS: Lisinopril 5 MG TAB 10 MG PO (17:22)
[2020-01-09] MEDS: Metoprolol CR 100 MG TABCR PO (17:22)
[2020-01-09] MEDS: Gabapentin 300 MG CAP 600 MG PO (20:23)
[2020-01-10] VITALS (14 sets, daily range): BP systolic 157–168; BP diastolic 70–83; PULSE 59–78; RESP 4–22; TEMP 36.7–37.4; O2SAT 83–99
[2020-01-10] MEDS: Albuterol/Ipratropium 3 ML UPD VIAL UPD ×4 (00:05→18:19)
[2020-01-10 07:03] LABS: Abs Immature Grans 0.01 k/cumm (0.0-0.09); Absolute Basophil Count 0.01 k/cumm (0.0-0.2); Absolute Eosinophil Count 0.03 k/cumm (0.0-0.7); Absolute Lymphocyte Count 0.52 k/cumm (1.2-3.4); Absolute Monocyte Count 0.41 k/cumm (0.11-0.7); Basophils % 0.2; Eosinophils % 0.6; HCT 37.5 % (40.0-50.0); HGB 12.3 g/dL (13.5-17.5); Immature Grans % 0.2 %; Lymphocytes % 10.9; Mean Corp. HGB Concentration 32.8 g/dL (32.0-36.0); Mean Corpuscular Volume 109.6 fL (80-95); Mean Platelet Volume 9.5 fL (8.0-11.0); Monocytes % 8.6; Neutrophils % 79.5; Platelet Count 243 x1000/uL (130-400); RBC 3.42 m/cumm (4.50-6.00); RBC Distribution Width 20.5 % (11.8-14.1); White Blood Cell Count 4.78 k/cumm (4.4-10.8)
[2020-01-10 07:21] LABS: Anisocytosis 2+; Diff Comment RBC Morph Reviewed; Macrocytosis 2+; Microcytosis 1+; Polychromasia Present
[2020-01-10 07:27] LABS: Anion Gap 3.8 mmol/L (3-11); BUN 28 mg/dL (7-18); C-Reactive Protein 0.47 mg/dL (0.0-0.3); CO2 34.2 mmol/L (21.0-32.0); CREATININE 1.12 mg/dL (0.70-1.30); Calcium 7.6 mg/dL (8.5-10.1); Chloride 105 mmol/L (98-107); Glucose 117 mg/dL (74-106); NT-proBNP 1746 pg/mL (<300); Sodium 143 mmol/L (136-145)
--- NOTE | 2020-01-10 07:30 | DI.US_ITS ---
APPROVED REPORT EXAM: Comprehensive 2D, Doppler, and color-flow Echocardiogram Patient Location: In-Patient Room/Bed: 230A Flap Curer: Brenda Yang RDCS (AE) Indications: CHF Conclusion Left Ventricle : The left ventricle is normal size. The left ventricular systolic function is normal . There is normal left ventricular wall thickness. There is normal LV segmental wall motion. LV marie stolic function is indeterminate but there is evidence of impaired relaxation. LVEF is 55-59%. Right Ventricle : The right ventricle is normal size. RV function appears normal. Atria : The left atrium size is normal. The right atrium size is normal. Aortic Valve : The Aortic valve is sclerotic. Aortic valve is trileaflet. There is no aortic valvular stenosis. Mild aortic regurgitation. Mitral Valve : The mitral valve is normal in structure. Trace mitral regurgitation. No evidence of mi tral valve stenosis. Great Vessels : IVC is normal in size and collapses >50% with inspiration. Estimated RVSP is 35-40 m mHg. There is no prior echocardiogram available for comparison. Wall motion Left Ventricle The left ventricle is normal size. The left ventricular systolic function is normal. There is normal left ventricular wall thickness. There is normal LV segmental wall motion. LV diastolic function is i ndeterminate but there is evidence of impaired relaxation. LVEF is 55-59%. Right Ventricle The right ventricle is normal size. RV function appears normal. Atria The left atrium size is normal. The right atrium size is normal. Aortic Valve The Aortic valve is sclerotic. Aortic valve is trileaflet. There is no aortic valvular stenosis. Mild aortic regurgitation. Mitral Valve The mitral valve is normal in structure. No evidence of mitral valve stenosis. Trace mitral regurgita tion. Tricuspid Valve The tricuspid valve is normal in structure. There is no tricuspid valve stenosis. Trace tricuspid reg urgitation. Pulmonic Valve Pulmonic valve is not well visualized. There is no pulmonic valvular stenosis. Trace pulmonic regurgi tation. Great Vessels The aortic root is normal in size. The ascending aorta is normal in size. IVC is normal in size and c ollapses >50% with inspiration. Estimated RVSP is 35-40 mmHg. Pericardium There is no pericardial effusion. 2D Dimensions IVSD d PLAX 0.96 cm M: 0.6-1.2 LV Vol A2C d MOD 98.1 mL LVPW d PLAX 1.01 cm M: 0.6 - 1.2 LV Vol A4C d MOD 84.9 mL LVID d PLAX 4.35 cm M: 4.2 - 5.8 LA vol/ BSA A2C s A-L 39.3 mL/m2 LVDs 3.35 cm M: 2.5 - 4.0 LA vol/ BSA A4C s A-L 29.9 mL/m2 Ao Root d 3.27 cm M: 3.1 - 3.7 LA Vol/ BSA Biplane s A-L 34.8 mL/m2 RA Area A4C 16.35 cm2 LA Area A4C s MOD 20.25 cm2 RA Vol/ BSA A4C s A-L 19.5 mL/m2 LA Area A2C s MOD 23.57 cm2 Ao Asc Diam d 3.17 cm M: 2.6 - 3.4 LV EF A4C MOD 59.1 % LV EF Teichholz 45.2 % LV EF A2C MOD 52.0 % LVEF (Rubin's) 56.74 % M: 52 - 72 LV EF Biplane MOD 56.7 % LV Volume 70.97 mL M: 62 - 150 LV Volume Index 34.96 mL/m2 M: 34 - 74 LV Vol Biplane MOD 95.1 mL FS 22.25 % LV Diastology MV E' medial 0.065 (>0.07 m/s) E/A Ratio 2.8 LV E/e MED 13.15 (<14) MV E Vmax 0.85 (0.4-1.3 m/s) MV E' lateral 0.095 (>0.1 m/s) MV A Vmax 0.30 (0.4-1.3 m/s) LV E/e LAT 8.95 (<14) MV E/A Ratio 2.60 MV E/E' medial 13.18 MV E/E' lateral 8.97 Aortic Valve LVOT Vmax 1.07 m/s LVOT Mean Antwan. 0.60 m/s LVOT Peak Grad 4.6 mmHg LVOT Mean Grad 1.8 mmHg LVOT VTI 0.282 m AoV Vmax 1.32 (0.5-1.3 m/s) Velocity Ratio 0.81 AoV Mean Antwan. 0.89 m/s AoV Peak Grad 6.9 mmHg AoV Mean Grad 3.6 (<5 mmHg) AoV VTI 0.331 (0.18-0.25 m) Mitral Valve MV DT 199 (160-240 msec) MV PHT 58 msec MV Area PHT 3.81 cm2 Pulmonary Valve PV Vmax 1.01 (0.5-1.5 m/s) RVOT Peak Gr. 1.49 mmHg PV Peak Grad 4.1 mmHg RVOT Mean Gr. 0.80 mmHg PV Mean Grad 2.1 mmHg RVOT VTI 0.150 m PV VTI 0.213 m RVOT Vmax 0.61 m/s Tricuspid Valve TR Peak Grad 35.5 mmHg TR Vmax 2.98 m/s RA Pressure 3.00 mmHg RVSP (TR) 38.6 mmHg
[2020-01-10] MEDS: Furosemide 40 MG/4 ML VIAL IVP ×2 (09:03→15:42)
[2020-01-10] MEDS: Gabapentin 300 MG CAP 600 MG PO ×3 (09:03→20:31)
[2020-01-10] MEDS: Enoxaparin 40 MG/0.4 ML SYR SC (09:03)
[2020-01-10] MEDS: Metoprolol CR 100 MG TABCR PO (09:04)
[2020-01-10] MEDS: Lisinopril 5 MG TAB 10 MG PO (09:04)
[2020-01-10] MEDS: Multivitamin TAB 1 TAB PO (09:04)
--- NOTE | 2020-01-10 09:46 | IN_ITS ---
Date of service: 01/10/20 Time of Service: 09:13 PT Notes Visit Reasons: PNEUMONIA,ALTERED MENTAL STATUS Physical Therapy Inpatient Initial Evaluation Date: 01/10/2020 Referring Doctor: Festus Galarza MD PT Orders: PT CONSULT: Fall safety assessment Precautions: Fall. Standard. Activity as tolerated. Patient Profile/Admitting Diagnosis: Patient is a 76-year-old male who well known to the [facility] as he has been going to the outpatient clinic 2-3 times a week under the independent exercise program for about a year now. 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 He presented to the ED on 01/08/2020 with chief presentation of decreased level of responsiveness, confusion, and nonproductive cough. ED documentation showed that patient also had fever per EMS report. However, review of patient's diagnostic records reveal that the highest temperature he has had since admission was 37.4 ?C. Patient is diagnosed with acute respiratory failure with hypoxia and hypercapnia, and altered mental status. He tested negative for the influenza and negative for the COVID19 by security researcher-PCR testing at the [facility] in [place], [place] as of 01/09/2020 at 16:24 PM. 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 They also have another person who boards at their house and is able to help with provision of care for patient for meals and roll plugger machine operator. provides assistance with morning care. Prior level of function is independent indoor and outdoor ambulation of about 50 feet using the front-wheeled walker. His peripheral neuropathy has placed limitations on all his mobility ADL performance. Equipment Owned/DME: Front-wheeled walker, transport wheelchair Subjective: Patient is insitent about getting the evaluation done with as he has a son who has travelled from [place] to visit with him. He states that he has stayed the same mobility-ontiveros using his front-wheeled walker. He also stressed that he plans on going back to the outpatient clinic to continue with his independent exercise program once he is discharged from here. He reported no headache, chest pain, and dizziness throughout PT consult. Objective: General Observation: Patient sitting on bedside chair. Telemetry monitoring in place. Bansal catheter in place. Bilateral TEDS on legs. Mental Status: Alert and oriented x4 Pain: 0/10 Vital Signs: 94% on 2 L of oxygen during ambulation activity ROM: Right Upper Extremity: Shoulder Flexion allows only up to 110 degrees. Shoulder abduction allows only up to 110 degrees. Elbow flexion WFL. Wrist flexion WFL. Opening and closing of hand WFL. Left Upper Extremity: Shoulder Flexion allows only up to 75 degrees. Shoulder abduction allows only up to 75 degrees. Elbow flexion WFL. Wrist flexion WFL. Opening and closing of hand WFL. Right Lower Extremity: Hip flexion WFL. Hip abduction WFL. Knee flexion WFL. Ankle dorsiflexion 5 to 10 degrees. Ankle plantarflexion WFL. Left Lower Extremity: Hip flexion WFL. Hip abduction WFL. Knee flexion WFL. Ankle dorsiflexion 5 to 10 degrees. Ankle plantarflexion WFL. Strength: Right Upper Extremity: Shoulder flexors 3-/5. Shoulder abductors 3-/5. Elbow flexors 5/5. Elbow extensors 5/5. Promotional Marketing Agent strong. Left Upper Extremity: Shoulder flexors 3-/5. Shoulder abductors 3-/5. Elbow flexors 5/5. Elbow extensors 5/5. Promotional Marketing Agent strong. Right Lower Extremity: Hip flexors 4/5. Hip abductors 4-/5. Knee flexors 5/5. Knee extensors 4-/5. Ankle dorsiflexors 2-/5. Ankle plantarflexors 3-/5. Left Lower Extremity:Hip flexors 4/5. Hip abductors 4-/5. Knee flexors 455. Knee extensors 4-/5. Ankle dorsiflexors 2-/5. Ankle plantarflexors 3-/5. Sensation: Intact as to pain and pressure on bilateral lower extremities. Patient reports neuropathic pain on bilateral lower extremities and left upper extremity. Bed Mobility/Transfers: Sit to stand SBA Stand to sit SBA Bed to chair SBA Chair to bed SBA Gait: Patient tolerated in room short distance ambulation of 50 feet using the front-wheeled walker with SBA and wheelchair follow of this PT. Steppage gait noted. Patient has a tendency to lag way behind his walker and requires minimal verbal cues for walker management and overall safety. Patient desaturated to as low as 84% with 1 L of oxygen but was able to re-saturated back with increase in oxygenation to 2 L/min up to 94%. Balance: Static Sitting: Normal Dynamic Sitting: Normal Static Standing: Fair Dynamic Standing: Fair Special Tests: Mobility Limitations Standardized Measure [facility]-P[facility] 6 clicks Basic Mobility Inpatient Short Form: Raw Score: 23 CMS Score: 11% deficit Informed Consent/Education: Patient instructed in purpose of PT consult and plan of care. Assessment: Patient is at his baseline mobility level at this time except for requiring 2 L/min of oxygen supplementation via NC. Patient will continue to benefit from continued level surface ambulation by nursing or RT staff at least once a day for 30-50 feet using FWW. He plans on continuing with the independent exercise program at the outpatient clinic once discharged from this hospital. Patient is modified independent with short distance ambulation using his front wheeled walker but requires supervision for longer distances and has a transport chair ready when he gets fatigued. Patient is a 76-year-old male who well known to the [facility] as he has been going to the outpatient clinic 2-3 times a week under the independent exercise program for about a year now. 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 He presented to the ED on 01/08/2020 with chief presentation of decreased level of responsiveness, confusion, and nonproductive cough. ED documentation showed that patient also had fever per EMS report. However, review of patient's diagnostic records reveal that the highest temperature he has had since admission was 37.4 ?C. Patient is diagnosed with acute respiratory failure with hypoxia and hypercapnia, and altered mental status. He tested negative for the influenza and negative for the COVID19 by security researcher-PCR testing at the [facility] in [place], [place] as of 01/09/2020 at 16:24 PM. Patient presents with clinical signs and symptoms consistent with current/admitting diagnoses that have resulted to mobility limitations, gait instability, generalized weakness, and impairment of motor control as demonstrated by the following impairment level findings: 1. Decreased strength to B LE major muscle groups 2. Impaired standing balance 3. Chronic ROM limitations on B shoulders Impairments are contributing to the following functional limitations: 1. Inability to safely ambulate without assistive device and physical assistance 2. Increase completion time for mobility ADL performance 3. Increased fall risk Patient is assessed as a 25400 moderate complexity based on the following: History: 79-year-old male with impairment level findings, functional limitations in [facility] PAC deficit score of 11% Examination: Demonstrable impairment in strength, balance, and range of motion with underlying impairments and functional limitations as documented above Presentation: Evolving Decision Makin moderate complexity Goals: N/A. PT consult only. Plan of Care/Treatment Plan: N/A. PT consult only. DISCHARGE RECOMMENDATIONS: Continue with level surface ambulation with nursing staff using front wheeled walker at least once a day to maintain baseline mobility level. No equipment needs at this time. TREATMENT CODE/TIME: 25737 x 27 minutes beginning at 9:13 AM Thank you very much for this referral. Liliane Morales PT, DPT, CLT [facility] [place], [place]
--- NOTE | 2020-01-10 13:41 | NS.NUTBLAN_ITS ---
Date of service: 01/10/20 Time of Service: 13:41 Nutritional Consult ASSESSMENT: 79 year old male admitted with CHF, Resp. Fx, PNA. PMH: metastatic prostate cancer. BMI indicates obesity. Following Heart Healthy Diet with 50- 100%. Currently meeting nutrient and fluid needs. Not at nutritional risk at this time. Will follow prn. MONITORING AND EVALUATION: weight, po intake, labs Time Spent in Nutritional Counseling and Treatment: 0 time spent face to face
--- NOTE | 2020-01-10 14:02 | CHAPLAIN ---
Jesus was sitting up in a chair visiting with his and two other people when I stopped in. He said he is feeling much better than when he first arrived. Jesus said he has been here a few times in the past six months, and was very complimentary about the care he has received. He and his belong to a quaker in [place], [place]. So we are all set in that department, he told me. Jesus's told me that her sister is Hilda Morgan, an [employer] coworker.
[2020-01-10] MEDS: Normal Saline Flush 10 ML SYR IVP (15:42)
--- NOTE | 2020-01-10 16:55 | CMPROGNOTE_ITS ---
- If Service Date Differs Date of service: 01/10/20 Time of Service: 16:55 Care Management Progress Note S/O: Lester was sitting up in a chair when CM met with him. He was smiling and engaged readily in conversation. Lester stated he is feeling much better. He shared that he had been a little frightened yesterday when he was isolated for possible COVID-19 infection. He was unable to see his family and was concerned about the possibility of being infected. He did state that he totally understand s and agrees with all of the measures that are in place to protect everyone. Mentally, Lester was very clear during the visit. He remembered CM from previous encounters and was able to recall her name and role. Lester's children are visiting from [place] and he is happy to be able to spend time with them. He stated that he does not feel he will need any additional services at discharge. A: Lester is a very pleasant 79 year old gentleman admitted on 01/08/20 with AMS and pneumonia P: Lester will return home with no new services. He will follow up with his community providers and discharge plan of care. CM will continue to support Lester, his family and discharge planning needs.
--- NOTE | 2020-01-10 20:46 | PGE_ITS ---
Date of Service Date of service: 01/10/20 Time of Service: 17:00 Assessment and Plan Assessment and plan (1) Respiratory failure with hypoxia and hypercapnia: Status: Resolved Assessment and plan: patient responded well to diuretics and BIPAP. He needs outpatient PSG to diagnose and treat JOSE. continue w/ lasix at higher dose of oral lasix and monitor BMP. I expect him to return home tomorrow. Qualifiers: Chronicity: acute on chronic Qualified Code(s): J96.21 - Acute and chronic respiratory failure with hypoxia; J96.22 - Acute and chronic respiratory failure with hypercapnia (2) Acute on chronic diastolic CHF (congestive heart failure): Status: Acute Assessment and plan: as above. follow up on formal echo readings. (3) Sleep apnea: Status: Suspected Assessment and plan: arrange outpatient referral to sleep lab for PSG Qualifiers: Sleep apnea type: obstructive Qualified Code(s): G47.33 - Obstructive sleep apnea (adult) (pediatric) Subjective Subjective Interval history since last seen: Patient has improved remarkably. He has recovered from his acute hypoxemic/hypercarbic respiratory failure. He is now on nasal cannula at 1 lpm w/ oxygen saturation of 95%. He denies any dyspnea. He has had no cough or sputum production and no fevers. I discontinued his antibiotics last night. If he remains afebrile and has no significant respiratory events or fevers overnight, I think that he can be discharged home in the a.m. He should have a sleep study to evaluate and treat for JOSE. I explained this to his family ( and adult children). I think that he has HFpEF secondary to JOSE and HTN and that nocturnal CPAP/BIPAP would benefit him. He was still receiving iv lasix today, however, he will be switched to oral lasix. I increased his dose to 40 mg PO bid. His echo was done yesterday however as of 5 pm I was unable to see any dicated report. By my POCUS exam yesterday he had normal systolic LV and RV function with normal ventricular size but he appeared to have diastolic dysfunction (i.e. impaired relaxation). Therefore I feel that he has HFpEF. Exam Narrative Exam Narrative: Obese male sitting up in his chair laughing and joking with his family. No respiratory discomfort. Respirations are nonlabored. Lungs are clear to auscultation anteriorly posteriorly he has some basilar rales. Heart is regular rate and rhythm. Abdomen is obese soft and nontender. Feet and legs have 2+ edema Objective Objective Clinical Data: Abnormal lab results 01/10/20 01/10/20 Range/Units 06:38 06:38 RBC 3.42 L (4.50-6.00) m/cumm Hgb 12.3 L (13.5-17.5) g/dL Hct 37.5 L (40.0-50.0) % MCV 109.6 H (80-95) fL MCH 36.0 H (27.0-33.0) pg RDW 20.5 H (11.8-14.1) % Absolute Lymphocytes 0.52 L (1.2-3.4) k/cumm Carbon Dioxide 34.2 H (21.0-32.0) mmol/L BUN 28 H (7-18) mg/dL Glucose 117 H (74-106) mg/dL Calcium 7.6 L (8.5-10.1) mg/dL C-Reactive Protein 0.47 H (0.0-0.3) mg/dL NT-Pro-B Natriuret Pep 1746 H (<300) pg/mL Vital Signs Temperature 37.4 C 01/10/20 15:35 Temperature Source Temporal Artery Scan 01/10/20 15:35 Pulse 59 L 01/10/20 15:35 Pulse Rhythm Regular 01/10/20 09:15 Pulse 62 01/08/20 19:10 Respiratory Rate 22 01/10/20 15:35 Respiratory Effort 01/10/20 09:15 Respiratory Depth Deep 01/10/20 09:15 Respiratory Pattern Normal 01/10/20 09:15 Blood Pressure 157/70 H 01/10/20 15:35 Blood Pressure Mean 96 01/08/20 19:01 Blood Pressure Position Supine 01/08/20 11:33 Pulse Oximetry 95 01/10/20 16:27 Respiratory End-tidal CO2 23 01/08/20 12:40 Oxygen Delivery Method Nasal Cannula 01/10/20 16:27 Oxygen Flow Rate 1 01/10/20 16:27 Fraction of Inspired Oxygen (FIO2) 40 01/09/20 11:28 Pain Level 0 01/10/20 15:35 Intake & Output 01/09/20 01/10/20 01/10/20 23:59 11:59 23:59 Intake Total 720 / 1080 310 / 800 490 / 800 Output Total 2700 / 3225 1500 / 2500 1000 / 2500 Balance -1980 / -2145 -1190 / -1700 -510 / -1700 Weight 99.6 kg 97.2 kg Intake: Oral 720 / 1080 310 / 800 490 / 800 Output: Urine 2700 / 3225 1500 / 2500 1000 / 2500 Other: Urine Color Yellow Yellow Pale Urine Appearance Clear Clear Clear Stool Size Small Large Stool Characteristics Soft Formed Formed Hard Brown Laboratory Results WBC 4.78 k/cumm (4.4-10.8) D 01/10/20 06:38 RBC 3.42 m/cumm (4.50-6.00) L 01/10/20 06:38 Hgb 12.3 g/dL (13.5-17.5) L 01/10/20 06:38 Hct 37.5 % (40.0-50.0) L 01/10/20 06:38 MCV 109.6 fL (80-95) H 01/10/20 06:38 MCH 36.0 pg (27.0-33.0) H 01/10/20 06:38 MCHC 32.8 g/dL (32.0-36.0) 01/10/20 06:38 RDW 20.5 % (11.8-14.1) H 01/10/20 06:38 Plt Count 243 x1000/uL (130-400) 01/10/20 06:38 MPV 9.5 fL (8.0-11.0) 01/10/20 06:38 Immature Gran % 0.2 % 01/10/20 06:38 Neutrophils % 79.5 01/10/20 06:38 Lymphocytes % 10.9 01/10/20 06:38 Monocytes % 8.6 01/10/20 06:38 Eosinophils % 0.6 01/10/20 06:38 Basophils % 0.2 01/10/20 06:38 Absolute Neutrophils 3.80 k/cumm (1.2-6.7) 01/10/20 06:38 Absolute Lymphocytes 0.52 k/cumm (1.2-3.4) L 01/10/20 06:38 Absolute Monocytes 0.41 k/cumm (0.11-0.7) 01/10/20 06:38 Absolute Eosinophils 0.03 k/cumm (0.0-0.7) 01/10/20 06:38 Absolute Basophils 0.01 k/cumm (0.0-0.2) 01/10/20 06:38 Differential Comment Rbc morph reviewed 01/10/20 06:38 RBC Morphology See below 01/10/20 06:38 Polychromasia Present 01/10/20 06:38 Anisocytosis 2+ 01/10/20 06:38 Microcytosis 1+ 01/10/20 06:38 Macrocytosis 2+ 01/10/20 06:38 PT 10.4 sec (9.3-11.0) 01/08/20 11:25 INR 1.0 (0.9-1.1) 01/08/20 11:25 ABG Sample Site Left radial 01/09/20 09:04 ABG pH 7.39 (7.35-7.45) 01/09/20 09:04 ABG pCO2 56 mmHg (34-47) H 01/09/20 09:04 ABG pO2 65 mmHg (83-108) L 01/09/20 09:04 ABG HCO3 33 mmol/L (22-28) H 01/09/20 09:04 ABG Total CO2 31 mmol/L (22-29) H 01/09/20 09:04 ABG O2 Saturation 93 % (94-98) L 01/09/20 09:04 ABG Base Excess 8.4 mmol/L (-3-3) H 01/09/20 09:04 Oxygen Liter Flow 5 L 01/09/20 09:04 FiO2 35 % 01/08/20 17:30 Sodium 143 mmol/L (136-145) 01/10/20 06:38 Potassium 4.0 mmol/L (3.5-5.1) 01/10/20 06:38 Chloride 105 mmol/L (98-107) 01/10/20 06:38 Carbon Dioxide 34.2 mmol/L (21.0-32.0) H 01/10/20 06:38 Anion Gap 3.8 mmol/L (3-11) 01/10/20 06:38 BUN 28 mg/dL (7-18) H 01/10/20 06:38 Creatinine 1.12 mg/dL (0.70-1.30) 01/10/20 06:38 Estimated GFR/1.73 m2 >= 60.00 (mL/min/1.73m2) 01/10/20 06:38 Glucose 117 mg/dL (74-106) H 01/10/20 06:38 Lactate 1.3 mmol/L (0.6-1.4) 01/08/20 11:25 Calcium 7.6 mg/dL (8.5-10.1) L 01/10/20 06:38 Magnesium 2.4 mg/dL (1.8-2.4) 01/09/20 06:45 Total Bilirubin 0.3 mg/dL (0.2-1.0) 01/08/20 11:25 AST 25 U/L (15-37) 01/08/20 11:25 ALT 35 U/L (16-63) 01/08/20 11:25 Alkaline Phosphatase 101 U/L (46-116) 01/08/20 11:25 Troponin I < 0.05 ng/Ml (<0.06) 01/09/20 06:45 C-Reactive Protein 0.47 mg/dL (0.0-0.3) H 01/10/20 06:38 NT-Pro-B Natriuret Pep 1746 pg/mL (<300) H 01/10/20 06:38 Total Protein 6.9 g/dL (6.4-8.2) 01/08/20 11:25 Albumin 3.2 g/dL (3.4-5.0) L 01/08/20 11:25 Procalcitonin < 0.1 ng/mL 01/08/20 19:10 Urine Color Yellow (Yellow) 01/08/20 11:55 Urine Clarity Clear (Clear) 01/08/20 11:55 Urine pH 5.5 (5-8) 01/08/20 11:55 Ur Specific [place] >= 1.030 (1.005-1.025) H 01/08/20 11:55 Urine Protein 100 mg/dL (Negative) H 01/08/20 11:55 Urine Ketones Negative mg/dL (Negative) 01/08/20 11:55 Urine Blood Trace-intact (Negative) H 01/08/20 11:55 Urine Nitrite Negative (Negative) 01/08/20 11:55 Urine Bilirubin Negative (Negative) 01/08/20 11:55 Urine Urobilinogen 0.2 EU/dL (Up TO 0.2) 01/08/20 11:55 Ur Leukocyte Esterase Negative (Negative) 01/08/20 11:55 Urine RBC 3-5 HPF (0-2) H 01/08/20 11:55 Urine WBC 0-2 HPF (0-5) 01/08/20 11:55 Ur Epithelial Cells Rare HPF (Negative) 01/08/20 11:55 Urine Crystals Negative HPF (Negative) 01/08/20 11:55 Urine Bacteria Rare HPF (Negative) 01/08/20 11:55 Urine Casts Negative LPF (Negative) 01/08/20 11:55 Urine Mucus Trace (Negative) 01/08/20 11:55 Ur Culture Indicated? No 01/08/20 11:55 Urine Glucose Negative mg/dL (Negative) 01/08/20 11:55 Coronavirus (PCR) See comments 01/08/20 14:05
[2020-01-11] MEDS: Albuterol/Ipratropium 3 ML UPD VIAL UPD (00:03)
[2020-01-11 07:55] VITALS: BP 179/75; PULSE 61; RESP 18; TEMP 36.6; O2SAT 94
[2020-01-11] MEDS: Gabapentin 300 MG CAP 600 MG PO ×3 (08:53→20:06)
[2020-01-11] MEDS: Metoprolol CR 100 MG TABCR PO (08:53)
[2020-01-11] MEDS: Enoxaparin 40 MG/0.4 ML SYR SC (08:53)
[2020-01-11] MEDS: Lisinopril 5 MG TAB 10 MG PO (08:54)
[2020-01-11] MEDS: Multivitamin TAB 1 TAB PO (08:54)
[2020-01-11] MEDS: Furosemide 40 MG TAB PO ×2 (08:54→15:23)
--- NOTE | 2020-01-11 12:00 | DI.RAD_ITS ---
EXAM: XR CHEST 2V PA LATERAL CLINICAL HISTORY: follow up infiltrates TECHNIQUE: 2D digital imaging was performed. COMPARISON: XR CHEST 2V PA LATERAL from 09/13/2019 XR PORTABLE CHEST AP from 01/08/2020 FINDINGS: MEDIASTINUM: Normal. HEART: There is cardiomegaly which is unchanged. PULMONARY VASCULATURE: Normal. LUNGS: There is a persistent left lower lobe infiltrate. There has been interval improvement in the right lower lobe infiltrate. PLEURAL SPACE: No Pneumothorax. Small bilateral pleural effusions. BONE:Old left rib fractures. Old left clavicular fracture. Degenerative changes in the spine. OTHER FINDINGS:Normal. IMPRESSION: 1. Persistent left lower lobe infiltrate which may represent atelectasis or pneumonia. 2. Interval improvement in the right lower lobe infiltrate. 3. Small bilateral pleural effusions. DATA REPOSITORY: RADIATION DOSE DELIVERED:
--- NOTE | 2020-01-11 12:16 | DI.VRAD_ITS ---
PROCEDURE INFORMATION: Exam: XR Chest, 2 Views Exam date and time: 01/11/2020 11:49 AM Age: 79 years old Clinical indication: Follow up infiltrates TECHNIQUE: Imaging protocol: XR of the chest Views: 2 views. COMPARISON: CR XR PORTABLE CHEST AP 01/08/2020 12:54 PM FINDINGS: Lungs: There is left lower lobe airspace disease with the suggestion of air bronchogram formation. The descending thoracic aorta is silhouetted out. This airspace disease can be due to pneumonia or dense atelectasis. This is not significantly changed. Slight improvement in the aeration of the right lung base. Near resolution of bronchial edema. Pleural space: There is a small left pleural effusion, and a trace right pleural effusion. Heart/Mediastinum: The heart is enlarged, with the appearance likely being accentuated by epicardial fat pads. Bones/joints: Multiple old left rib fractures. Old distal left clavicular fracture. Bilateral glenohumeral joint degeneration. Bilateral chronic rotator cuff tears. IMPRESSION: 1. No significant change in the left lower lobe pneumonia or dense atelectasis. 2. Asymmetric pleural effusions, larger on the left. 3. Improvement in the central bronchial edema. Dictated and Authenticated by: Ramirez Ortega MD. Ordering:TED Salcido MD
[2020-01-11 14:35] VITALS: PULSE 64; PULSE 68; PULSE 83; RESP 16; RESP 20; RESP 24; O2SAT 94; O2SAT 95
--- NOTE | 2020-01-11 17:26 | PDOC.CMPRO ---
- If Service Date Differs Date of service: 01/11/20 Time of Service: 17:26 Care Management Progress Note S/O: Manjit is having an overnight oximetry to determine if he qualifies for nocturnal oxygen. Anticipate he will be discharged home on Monday. A: Lester is a very pleasant 79 year old gentleman admitted on 01/08/20 with AMS and pneumonia P: Lester will return home with his spouse, anticipate with new oxygen through [place] pending qualification. He will follow up with his community providers and discharge plan of care. will continue to support Lester, his family and discharge planning needs. Spouse to transport home at time of discharge.
[2020-01-11 18:33] VITALS: BP 153/88; PULSE 62; RESP 16; TEMP 37.2; O2SAT 92
--- NOTE | 2020-01-11 18:43 | PGE_ITS ---
Date of Service Date of service: 01/11/20 Time of Service: 18:44 Assessment and Plan Assessment and plan (1) Respiratory failure with hypoxia and hypercapnia: Status: Resolved Assessment and plan: Will require a sleep study as outpatient. For now, will obtain overnight oxymetry to have O2 at home in the interim. Qualifiers: Chronicity: acute on chronic Qualified Code(s): J96.21 - Acute and chronic respiratory failure with hypoxia; J96.22 - Acute and chronic respiratory failure with hypercapnia (2) Toxic metabolic encephalopathy: Status: Resolved Assessment and plan: [place] to be due to CO2 narcosis. (3) Acute on chronic diastolic CHF (congestive heart failure): Status: Acute Assessment and plan: Continue diuresis with PO lasix. Echo: EF 55-59%, pulmonary pressures 35-40 mmHg. Check BMP in am. (4) Sleep apnea: Status: Suspected Assessment and plan: As above - outpatient referral for a sleep study Qualifiers: Sleep apnea type: obstructive Qualified Code(s): G47.33 - Obstructive sleep apnea (adult) (pediatric) (5) Discharge planning issues: Status: Acute Assessment and plan: DNR/DNI Expected to be discharged home tomorrow (6) DVT prophylaxis: Status: Acute Assessment and plan: lovenox Subjective Subjective Interval history since last seen: Mr Adrian is feeling great. Denies dizziness, chest pain, shortness of breath, nausea, abdominal pain. He would like to go home. He was noted to having an apneic pattern and to desaturate to 80's while asleep in the chair during the day. He agrees to stay for overnight oximetry with plans to go home tomorrow with nocturnal O2. Exam Narrative Exam Narrative: General: Very pleasant obese male, laying comfortably in bed, A&OX3 HEENT: EOMI, MMM Heart: RRR, no m/r/g Lungs: fine crackles at B bases Abdomen: soft, nontender, nondistended Extremities: trace edema BLE's Objective Objective Clinical Data: Vital Signs Temperature 37.2 C 01/11/20 18:33 Temperature Source Tympanic 01/11/20 18:33 Pulse 62 01/11/20 18:33 Pulse Rhythm Regular 01/11/20 11:14 Pulse 62 01/08/20 19:10 Respiratory Rate 16 01/11/20 18:33 Respiratory Effort 01/11/20 11:14 Respiratory Depth Deep 01/11/20 11:14 Respiratory Pattern Normal 01/11/20 11:14 Blood Pressure 153/88 H 01/11/20 18:33 Blood Pressure Mean 96 01/08/20 19:01 Blood Pressure Position Supine 01/08/20 11:33 Pulse Oximetry 92 L 01/11/20 18:33 Respiratory End-tidal CO2 23 01/08/20 12:40 Oxygen Delivery Method Room Air 01/11/20 18:33 Oxygen Flow Rate 0 01/11/20 18:33 Fraction of Inspired Oxygen (FIO2) 40 01/09/20 11:28 Pain Level 0 01/11/20 18:33 Intake & Output 01/10/20 01/11/20 01/11/20 23:59 11:59 23:59 Intake Total 490 / 800 100 / 340 240 / 340 Output Total 1325 / 2825 450 / 1250 800 / 1250 Balance -835 / -2025 -350 / -910 -560 / -910 Intake: Oral 490 / 800 100 / 340 240 / 340 Output: Urine 1325 / 2825 450 / 1250 800 / 1250 Other: Urine Color Straw Yellow Yellow Urine Appearance Hematuria Clear Clear Comment voided in toilet Stool Size Large Moderate Stool Characteristics Formed Soft Hard Brown Brown Voiding Methods Toilet Toilet Laboratory Results WBC 4.78 k/cumm (4.4-10.8) D 01/10/20 06:38 RBC 3.42 m/cumm (4.50-6.00) L 01/10/20 06:38 Hgb 12.3 g/dL (13.5-17.5) L 01/10/20 06:38 Hct 37.5 % (40.0-50.0) L 01/10/20 06:38 MCV 109.6 fL (80-95) H 01/10/20 06:38 MCH 36.0 pg (27.0-33.0) H 01/10/20 06:38 MCHC 32.8 g/dL (32.0-36.0) 01/10/20 06:38 RDW 20.5 % (11.8-14.1) H 01/10/20 06:38 Plt Count 243 x1000/uL (130-400) 01/10/20 06:38 MPV 9.5 fL (8.0-11.0) 01/10/20 06:38 Immature Gran % 0.2 % 01/10/20 06:38 Neutrophils % 79.5 01/10/20 06:38 Lymphocytes % 10.9 01/10/20 06:38 Monocytes % 8.6 01/10/20 06:38 Eosinophils % 0.6 01/10/20 06:38 Basophils % 0.2 01/10/20 06:38 Absolute Neutrophils 3.80 k/cumm (1.2-6.7) 01/10/20 06:38 Absolute Lymphocytes 0.52 k/cumm (1.2-3.4) L 01/10/20 06:38 Absolute Monocytes 0.41 k/cumm (0.11-0.7) 01/10/20 06:38 Absolute Eosinophils 0.03 k/cumm (0.0-0.7) 01/10/20 06:38 Absolute Basophils 0.01 k/cumm (0.0-0.2) 01/10/20 06:38 Differential Comment Rbc morph reviewed 01/10/20 06:38 RBC Morphology See below 01/10/20 06:38 Polychromasia Present 01/10/20 06:38 Anisocytosis 2+ 01/10/20 06:38 Microcytosis 1+ 01/10/20 06:38 Macrocytosis 2+ 01/10/20 06:38 PT 10.4 sec (9.3-11.0) 01/08/20 11:25 INR 1.0 (0.9-1.1) 01/08/20 11:25 ABG Sample Site Left radial 01/09/20 09:04 ABG pH 7.39 (7.35-7.45) 01/09/20 09:04 ABG pCO2 56 mmHg (34-47) H 01/09/20 09:04 ABG pO2 65 mmHg (83-108) L 01/09/20 09:04 ABG HCO3 33 mmol/L (22-28) H 01/09/20 09:04 ABG Total CO2 31 mmol/L (22-29) H 01/09/20 09:04 ABG O2 Saturation 93 % (94-98) L 01/09/20 09:04 ABG Base Excess 8.4 mmol/L (-3-3) H 01/09/20 09:04 Oxygen Liter Flow 5 L 01/09/20 09:04 FiO2 35 % 01/08/20 17:30 Sodium 143 mmol/L (136-145) 01/10/20 06:38 Potassium 4.0 mmol/L (3.5-5.1) 01/10/20 06:38 Chloride 105 mmol/L (98-107) 01/10/20 06:38 Carbon Dioxide 34.2 mmol/L (21.0-32.0) H 01/10/20 06:38 Anion Gap 3.8 mmol/L (3-11) 01/10/20 06:38 BUN 28 mg/dL (7-18) H 01/10/20 06:38 Creatinine 1.12 mg/dL (0.70-1.30) 01/10/20 06:38 Estimated GFR/1.73 m2 >= 60.00 (mL/min/1.73m2) 01/10/20 06:38 Glucose 117 mg/dL (74-106) H 01/10/20 06:38 Lactate 1.3 mmol/L (0.6-1.4) 01/08/20 11:25 Calcium 7.6 mg/dL (8.5-10.1) L 01/10/20 06:38 Magnesium 2.4 mg/dL (1.8-2.4) 01/09/20 06:45 Total Bilirubin 0.3 mg/dL (0.2-1.0) 01/08/20 11:25 AST 25 U/L (15-37) 01/08/20 11:25 ALT 35 U/L (16-63) 01/08/20 11:25 Alkaline Phosphatase 101 U/L (46-116) 01/08/20 11:25 Troponin I < 0.05 ng/Ml (<0.06) 01/09/20 06:45 C-Reactive Protein 0.47 mg/dL (0.0-0.3) H 01/10/20 06:38 NT-Pro-B Natriuret Pep 1746 pg/mL (<300) H 01/10/20 06:38 Total Protein 6.9 g/dL (6.4-8.2) 01/08/20 11:25 Albumin 3.2 g/dL (3.4-5.0) L 01/08/20 11:25 Procalcitonin < 0.1 ng/mL 01/08/20 19:10 Urine Color Yellow (Yellow) 01/08/20 11:55 Urine Clarity Clear (Clear) 01/08/20 11:55 Urine pH 5.5 (5-8) 01/08/20 11:55 Ur Specific [place] >= 1.030 (1.005-1.025) H 01/08/20 11:55 Urine Protein 100 mg/dL (Negative) H 01/08/20 11:55 Urine Ketones Negative mg/dL (Negative) 01/08/20 11:55 Urine Blood Trace-intact (Negative) H 01/08/20 11:55 Urine Nitrite Negative (Negative) 01/08/20 11:55 Urine Bilirubin Negative (Negative) 01/08/20 11:55 Urine Urobilinogen 0.2 EU/dL (Up TO 0.2) 01/08/20 11:55 Ur Leukocyte Esterase Negative (Negative) 01/08/20 11:55 Urine RBC 3-5 HPF (0-2) H 01/08/20 11:55 Urine WBC 0-2 HPF (0-5) 01/08/20 11:55 Ur Epithelial Cells Rare HPF (Negative) 01/08/20 11:55 Urine Crystals Negative HPF (Negative) 01/08/20 11:55 Urine Bacteria Rare HPF (Negative) 01/08/20 11:55 Urine Casts Negative LPF (Negative) 01/08/20 11:55 Urine Mucus Trace (Negative) 01/08/20 11:55 Ur Culture Indicated? No 01/08/20 11:55 Urine Glucose Negative mg/dL (Negative) 01/08/20 11:55 Coronavirus (PCR) See comments 01/08/20 14:05
[2020-01-11] MEDS: fentaNYL 75 MCG PATCH TD (20:08)
[2020-01-11 23:53] VITALS: BP 163/70; PULSE 63; RESP 16; TEMP 36.6; O2SAT 91
[2020-01-12 06:56] LABS: Absolute Basophil Count 0.02 k/cumm (0.0-0.2); Absolute Eosinophil Count 0.12 k/cumm (0.0-0.7); Absolute Lymphocyte Count 0.85 k/cumm (1.2-3.4); Absolute Neutrophil Count 1.53 k/cumm (1.2-6.7); Basophils % 0.7; Eosinophils % 4.1; HCT 36.3 % (40.0-50.0); HGB 12.1 g/dL (13.5-17.5); Lymphocytes % 29.1; Mean Corp. HGB Concentration 33.3 g/dL (32.0-36.0); Mean Corpuscular Hemoglobin 35.8 pg (27.0-33.0); Mean Corpuscular Volume 107.4 fL (80-95); Mean Platelet Volume 8.9 fL (8.0-11.0); Monocytes % 13.7; Neutrophils % 52.4; Platelet Count 232 x1000/uL (130-400); RBC 3.38 m/cumm (4.50-6.00); RBC Distribution Width 20.3 % (11.8-14.1); White Blood Cell Count 2.92 k/cumm (4.4-10.8)
[2020-01-12 07:06] LABS: Anion Gap 2.5 mmol/L (3-11); BUN 30 mg/dL (7-18); CO2 36.5 mmol/L (21.0-32.0); CREATININE 1.31 mg/dL (0.70-1.30); Calcium 8.1 mg/dL (8.5-10.1); Chloride 103 mmol/L (98-107); Estimated GFR 52.92 (mL/min/1.73m2); Glucose 102 mg/dL (74-106); Magnesium 2.4 mg/dL (1.8-2.4); Potassium 4.1 mmol/L (3.5-5.1); Sodium 142 mmol/L (136-145)
[2020-01-12 07:30] LABS: Anisocytosis 2+; Diff Comment RBC Morph Reviewed
[2020-01-12 07:31] LABS: Hypochromasia 1+; Macrocytosis 1+; Polychromasia Present
[2020-01-12 07:32] LABS: Poikilocytes 1+
[2020-01-12 07:38] VITALS: BP 143/69; PULSE 63; RESP 18; TEMP 36.6; O2SAT 97
[2020-01-12] MEDS: Enoxaparin 40 MG/0.4 ML SYR SC (07:59)
[2020-01-12] MEDS: Metoprolol CR 100 MG TABCR PO (08:00)
[2020-01-12] MEDS: Furosemide 40 MG TAB PO (08:00)
[2020-01-12] MEDS: Gabapentin 300 MG CAP 600 MG PO (08:00)
[2020-01-12] MEDS: Lisinopril 5 MG TAB 10 MG PO (08:00)
[2020-01-12] MEDS: Multivitamin TAB 1 TAB PO (08:00)
--- NOTE | 2020-01-12 10:32 | W.PM.DS.N ---
Date of service: 01/12/20 Time of Service: 10:32 DS: Diagnosis Discharge Diagnosis (1) Nocturnal hypoxia: Status: Acute (2) Respiratory failure with hypoxia and hypercapnia: Status: Resolved (3) Toxic metabolic encephalopathy: Status: Resolved (4) Acute on chronic diastolic CHF (congestive heart failure): Status: Resolved Asessment and Plan: With small bilateral pleural effusions, now nearing baseline. EF 55%, per echo, with evidence of diastolic dysfunction. (5) Sleep apnea: Status: Suspected (6) Pneumonia: Status: Ruled-out (7) Nonsustained paroxysmal supraventricular tachycardia: Status: Acute (8) Obesity (BMI 30-39.9): Status: Acute (9) Atelectasis: Status: Acute Discharge Plan Disposition Patient Disposition: HOME Condition: Serious Discharge Details Chief Complaint: AMS/LOC Clinical Impression: Altered mental status, Hypoxia, Pneumonia Reason For Visit: PNEUMONIA,ALTERED MENTAL STATUS Admit Date/Time: 01/08/20 16:36 Admit Provider: Festus Galarza Attending Provider: Festus Galarza Primary Care Provider: Tonny Leslie ED Provider: Festus Marie Hospital Course Hospital Course: Mr Adrian is a 79 year old male with PMHx of chronic diastolic CHF, metastatic prostate cancer, chronic pain, treated with a fentanyl patch, and obesity with BMI of 36.6, who was admitted to [facility] hospitalist service on 01/08/2020 with toxic metabolic encephalopathy in setting of CO2 retention/acute hypoxic hypercapnic respiratory failure. He was found to be fluid overloaded, treated with IV diuretics and BiPAP. His fentanyl patch was resolved. He was markedly improved by hospital day 2. There was a suspicion for acute pneumonia on admission, but clinically this ended up being ruled out (including COVID-19 testing, which was negative). Empiric antibiotics were d/c'ed on hospital day 2. As his mental status normalized, the fentanyl patch was reintroduced, and the patient has tolerated this. What we do note is that the patient has reproducible desaturations whenever he is asleep, suggesting likely underlying sleep apnea. He is being referred to a formal sleep study as outpatient. Meanwhile, overnight oxymetry did reveal 40 events of oxygen desaturation into O2 sats <88%, with 95.7 minutes spent with O2 sat <88%. After the patient was placed on 1 L of O2, his oxygen saturation came up to 95% while asleep. The patient is being discharged home with a new prescription for nocturnal O2 at 1L by NC while asleep until he can have his sleep study. He was transitioned to PO lasix. We ask that he weigh himself daily and inform his PCP if his weight goes up by more than 3 lbs in 3 days. Finally, there was one event on telemetry of SVT lasting for about 40 beats which was self limited while asleep. The patient will be discharged home with a cardiac event recorder to help monitor for any recurrences of this, which could help in adjustment of his medications. Patient is medically stable for discharge home today. Care for patient as well as completion of his discharge summary took 45 minutes on day of discharge. Home Meds and New Rx's Prescriptions: New furosemide 40 mg Tablet See Rx Instructions .ROUTE .COMPLEX Qty: 14 RF: 0 Continued ascorbic acid (vitamin C) [Vitamin C] 1,000 MG tablet 1,000 mg PO DAILY RF: 0 metoprolol succinate 100 MG tablet extended release 24 hr 100 mg PO DAILY RF: 0 Lupron Depot (4 month) 30 MG syringe kit 30 mg IM .Q4 months RF: 0 multivitamin tablet 1 tab PO DAILY RF: 0 fluticasone propionate 50 mcg/actuation spray,suspension 1 spray BRIAN DAILY RF: 0 Xgeva 120 mg/1.7 mL (70 mg/mL) solution 120 mg SC Q6W RF: 0 lisinopril 5 mg tablet 10 mg PO DAILY Qty: 2 RF: 0 gabapentin 300 mg capsule 600 mg PO TID RF: 0 calcium carbonate-vitamin D3 500 mg calcium- 400 unit/5 mL liquid 5 ml PO DAILY RF: 0 zinc oxide 20 % Ointment 1 applic topical TID Qty: 30 RF: 0 clotrimazole 1 % Cream 1 applic topical TID Qty: 30 RF: 0 vits A and D-white pet-lanolin Ointment 1 applic topical TID Qty: 56 RF: 0 fentanyl [Duragesic] 75 mcg/hr Patch 72 Hour 75 mcg transdermal Q72H Qty: 5 RF: 0 Lynparza 150 mg Tablet 300 mg PO BID Qty: 0 RF: 0 Discontinued furosemide 20 MG tablet 20 mg PO DAILY RF: 0 Discharge Instructions Instructions: Heart Failure (DC), Sleep Apnea (DC), Using Oxygen at Home (DC), Chronic Respiratory Failure (DC) Additional Instructions: Weigh yourself daily. Inform your PCP if your weight goes up by greater than 3 lbs in 3 days - that's extra water and you may need more lasix. Restrict your dietary salt intake to 2 grams/day. Return to the hospital with any fever, bleeding, chest pain, or shortness of breath. Wear 1 L of oxygen at night/with naps. Referrals: Tonny Leslie MD [Primary Care Provider] - Activity:: Activity as Tolerated Equipment/Supplies:: O2 at 1L/min at night/HS Diet:: Low Sodium Discharge Orders Discharge Orders: Discharge Order (Routine); Ordered 01/12/20 Ordered By: Loly Brown Other Ambulatory Orders: Cardiac Event Recorder (Outpt) (ONCE) Timeframe: [id number] Facility: [facility] - Location: Respiratory Therapy Ordered By: Loly Brown DS: Summary Status at Discharge Functional status at discharge: independent ambulation Overall status at discharge: patient is back to baseline Mental Status: mental status grossly normal Speech and Movement: speech and movement normal Mood: congruent mood Affect: normal affect Exam Narrative Exam Narrative: General: Very pleasant obese male, laying comfortably in bed, A&OX3 HEENT: EOMI, MMM Heart: RRR, no m/r/g Lungs: CTAB Abdomen: soft, nontender, nondistended Extremities: trace edema BLE's Psych Mental Status: mental status grossly normal Speech and Movement: speech and movement normal Mood: congruent mood Affect: normal affect DS: Data Vitals/I&O Vitals and I&O: Vital Signs Temperature 36.6 C 01/12/20 07:38 Temperature Source Tympanic 01/11/20 23:53 Pulse 63 01/12/20 07:38 Pulse Rhythm Regular 01/12/20 07:49 Pulse 62 01/08/20 19:10 Respiratory Rate 18 01/12/20 07:38 Respiratory Effort Non-Labored 01/12/20 07:49 Respiratory Depth Normal 01/12/20 07:49 Respiratory Pattern Normal 01/12/20 07:49 Blood Pressure 143/69 H 01/12/20 07:38 Blood Pressure Mean 96 01/08/20 19:01 Blood Pressure Position Supine 01/08/20 11:33 Pulse Oximetry 97 01/12/20 07:38 Respiratory End-tidal CO2 23 01/08/20 12:40 Oxygen Delivery Method Nasal Cannula 01/12/20 07:38 Oxygen Flow Rate 1 01/12/20 07:38 Fraction of Inspired Oxygen (FIO2) 40 01/09/20 11:28 Pain Level 0 01/12/20 07:38 Comment 01/11/20 23:53 Intake & Output 01/11/20 01/11/20 01/12/20 11:59 23:59 11:59 Intake Total 100 / 580 480 / 580 480 / 480 Output Total 450 / 1250 800 / 1250 Balance -350 / -670 -320 / -670 480 / 480 Intake: Oral 100 / 580 480 / 580 480 / 480 Output: Urine 450 / 1250 800 / 1250 Other: Urine Color Yellow Yellow Yellow Urine Appearance Clear Clear Clear Comment voided in toilet Stool Size Moderate Stool Characteristics Soft Liquid Brown Voiding Methods Toilet Toilet Toilet Data Completed and Pending Completed studies during hospitalization [Text1]: CXR 01/08/2020: Severely limited exam. Bibasilar densities could represent infiltrates, atelectasis or pulmonary edema. Repeat PA and lateral examination is recommended. Echo 01/10/2020: Left Ventricle : The left ventricle is normal size. The left ventricular systolic function is normal. There is normal left ventricular wall thickness. There is normal LV segmental wall motion. LV diastolic function is indeterminate but there is evidence of impaired relaxation. LVEF is 55-59%. Right Ventricle : The right ventricle is normal size. RV function appears normal. Atria : The left atrium size is normal. The right atrium size is normal. Aortic Valve : The Aortic valve is sclerotic. Aortic valve is trileaflet. There is no aortic valvular stenosis. Mild aortic regurgitation. Mitral Valve : The mitral valve is normal in structure. Trace mitral regurgitation. No evidence of mitral valve stenosis. Great Vessels : IVC is normal in size and collapses >50% with inspiration. Estimated RVSP is 35-40 mmHg. There is no prior echocardiogram available for comparison. CXR 01/08/2020: 1. No significant change in the left lower lobe pneumonia or dense atelectasis. 2. Asymmetric pleural effusions, larger on the left. 3. Improvement in the central bronchial edema. Labs on day of discharge: Labs from last 24 hours 01/12/20 01/12/20 06:43 06:43 WBC 2.92 L RBC 3.38 L Hgb 12.1 L Hct 36.3 L MCV 107.4 H MCH 35.8 H MCHC 33.3 RDW 20.3 H Plt Count 232 MPV 8.9 Immature Gran % 0.0 Neutrophils % 52.4 Lymphocytes % 29.1 Monocytes % 13.7 Eosinophils % 4.1 Basophils % 0.7 Absolute Neutrophils 1.53 Absolute Lymphocytes 0.85 L Absolute Monocytes 0.40 Absolute Eosinophils 0.12 Absolute Basophils 0.02 Differential Comment Rbc morph reviewed RBC Morphology See below Polychromasia Present Hypochromasia 1+ Poikilocytosis 1+ Anisocytosis 2+ Macrocytosis 1+ Sodium 142 Potassium 4.1 Chloride 103 Carbon Dioxide 36.5 H Anion Gap 2.5 L BUN 30 H Creatinine 1.31 H Estimated GFR/1.73 m2 52.92 Glucose 102 Calcium 8.1 L Magnesium 2.4 Preliminary micro results at discharge 01/08/20 12:25 Blood Culture - Preliminary Blood NO GROWTH 72 HOURS 01/08/20 11:25 Blood Culture - Preliminary Blood NO GROWTH 72 HOURS [facility] Medical History (Updated 01/12/20 @ 10:58 by Loly Brown MD) AWILDA (acute kidney injury) (Resolved) Bone metastases (Acute) Chronic kidney disease, stage 3 Decubital ulcer (Resolved) Edema (Resolved) Hx of acute renal failure Hyperlipidemia (Chronic) Hypertension (Chronic) Left foot pain (Resolved) Left rotator cuff tear (Chronic) Lichen sclerosus (Acute) Memory loss (Chronic) Metastatic malignant neoplasm to prostate (Chronic) Mononeuropathy of left lower extremity Peripheral edema 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
[2020-01-12 11:18] VITALS: BP 139/68; PULSE 57; RESP 17; TEMP 36.7; O2SAT 95
--- NOTE | 2020-01-12 12:25 | CMDISCH_ITS ---
- If Service Date Differs Date of service: 01/12/20 Time of Service: 12:25 LACE Index Scoring Tool - Questions: Length of Stay (in days): 4 - 6 Acuity (Admit via E.D.?): Yes Comorbidities: Dementia, Metastatic Solid Tumor E.D. Visits: 4 - Answers: Total Score: 16 Risk of Readmission: High Risk Care Management Discharge Reason for Hospitalization: Acute respiratory failure Discharge Plan: Manjit will be discharged home with new home oxygen for noctur nal use. He will follow up with as directed. He will not need any additional services at time of discharge. RT is coordianting oxygen through [facility] and he will have a 30 day event monitor at time of discharge. Spouse to provide transportaiton. Patient/Family Education Needs: Discharge education, limitations and follow up plan of care including ask me three and self management. Services Needed at Discharge: DME Agency, Oxygen Therapy
[2020-01-13 09:08] LABS: Streptococcus Pneumoniae Ag, U Negative (Negative)
--- NOTE | 2020-02-13 08:43 | W.CARDEVENT ---
Date of service: 02/13/20 Time of Service: 08:43 Cardiac Event Recorder Cardiac Event Note: This is a 1 month event monitor. ?Over the 1 month. There was only 12 hours of recording completed. ?The patient was in normal sinus rhythm and sinus bradycardia for the majority of the recording. Average heart rate was 55 bpm. ?There were no episodes of atrial fibrillation ?There were no episodes of ventricular tachycardia, no pauses greater than 3 seconds and no evidence of high degree heart block. There were no patient triggered events. One auto triggered event was associated with sinus bradycardia.
== END 2020-01-12 13:00 | disposition home or self-care (01) | DRG 291 ==
LOC: ER 17:03 → MS 19:50
PROVIDERS: Internal Medicine; Physician Assistant; Admitting Provider Internal Medicine; Emergency Provider Physician Assistant; PCP Internal Medicine; Visit Provider Internal Medicine
DX: I13.0 Hypertensive heart and chronic kidney disease with heart failure and stage 1 through stage 4 chronic kidney disease, or unspecified chronic kidney disease (principal); I50.33 Acute on chronic diastolic (congestive) heart failure; J96.01 Acute respiratory failure with hypoxia; J96.02 Acute respiratory failure with hypercapnia; G92 Toxic encephalopathy; C79.51 Secondary malignant neoplasm of bone; I47.1 Supraventricular tachycardia; J98.11 Atelectasis; E66.9 Obesity, unspecified; Z68.36 Body mass index [BMI] 36.0-36.9, adult; L97.529 Non-pressure chronic ulcer of other part of left foot with unspecified severity; C61 Malignant neoplasm of prostate; G47.33 Obstructive sleep apnea (adult) (pediatric); G62.0 Drug-induced polyneuropathy; T45.1X5A Adverse effect of antineoplastic and immunosuppressive drugs, initial encounter; N18.3 Chronic kidney disease, stage 3 (moderate); E78.5 Hyperlipidemia, unspecified; M75.102 Unspecified rotator cuff tear or rupture of left shoulder, not specified as traumatic; Z87.820 Personal history of traumatic brain injury; Z66 Do not resuscitate; G89.29 Other chronic pain
CPT/HCPCS: 36415; 36416; 51702; 80048; 80053; 82805; 82962; 84145; 87040; 87449; 93005; 93270; 93306; 94640; 96361; 96365; 96366; 96375; 97162; 99223; 99232; 99233; 99239; 99291; J1650; U0003; 36600; 71045; 71046; 81003; 81015; 83605; 83735; 83880; 84484; 85025; 85610; 86140; 87070; 87205; 87450; 93010; 94660; 94762; J1940; J1956; J2930; J3490; J7620

== ENCOUNTER 2020-01-21 16:19 | Outpatient (REF) | payer MEDICARE, SELFPAY ==
[2020-01-21 20:36] LABS: ALT 29 U/L (16-63); AST 24 U/L (15-37); Albumin 3.3 g/dL (3.4-5.0); Alkaline Phosphatase 99 U/L (46-116); Anion Gap 3.9 mmol/L (3-11); BUN 35 mg/dL (7-18); Bilirubin, Total 0.2 mg/dL (0.2-1.0); CO2 34.1 mmol/L (21.0-32.0); CREATININE 1.76 mg/dL (0.70-1.30); Calcium 8.8 mg/dL (8.5-10.1); Chloride 105 mmol/L (98-107); Estimated GFR 37.64 (mL/min/1.73m2); Glucose 141 mg/dL (74-106); Potassium 4.8 mmol/L (3.5-5.1); Sodium 143 mmol/L (136-145); Total Protein 6.5 g/dL (6.4-8.2)
== END 2020-01-21 16:39 ==
LOC: NCHCN 16:19
PROVIDERS: PCP Internal Medicine; Visit Provider Internal Medicine
DX: C61 Malignant neoplasm of prostate (principal)
CPT/HCPCS: 80053; 84153; 84403

== ENCOUNTER 2020-01-22 20:40 | Outpatient (REF) | payer MEDICARE, SELFPAY ==
[2020-01-22 20:55] LABS: Absolute Basophil Count 0.01 k/cumm (0.0-0.2); Absolute Eosinophil Count 0.09 k/cumm (0.0-0.7); Absolute Lymphocyte Count 0.87 k/cumm (1.2-3.4); Absolute Neutrophil Count 2.84 k/cumm (1.2-6.7); Basophils % 0.2; Eosinophils % 2.1; HCT 35.4 % (40.0-50.0); HGB 11.4 g/dL (13.5-17.5); Lymphocytes % 20.7; Mean Corp. HGB Concentration 32.2 g/dL (32.0-36.0); Mean Corpuscular Hemoglobin 36.1 pg (27.0-33.0); Mean Platelet Volume 9.7 fL (8.0-11.0); Monocytes % 9.5; Neutrophils % 67.5; Platelet Count 294 x1000/uL (130-400); RBC 3.16 m/cumm (4.50-6.00); RBC Distribution Width 18.5 % (11.8-14.1); White Blood Cell Count 4.21 k/cumm (4.4-10.8)
[2020-01-24 09:13] LABS: PSA, Diagnostic 55.6 ng/mL (0.0-6.5)
[2020-01-26 14:59] LABS: Testosterone, Total <7.0 ng/dL (240-950)
== END 2020-01-22 21:00 ==
LOC: NCHCN 20:40
PROVIDERS: PCP Internal Medicine; Visit Provider Internal Medicine
DX: C61 Malignant neoplasm of prostate (principal)
CPT/HCPCS: 84403; 84153; 85025

== ENCOUNTER 2020-02-13 08:43 | Outpatient (CLI) | payer MEDICARE, SELFPAY | END 2020-02-13 09:03 | PROVIDERS: PCP Internal Medicine; Visit Provider Internal Medicine Cardiovascular Disease | DX: R00.1 Bradycardia, unspecified (principal) | CPT/HCPCS: 93228 ==

== ENCOUNTER 2020-03-04 17:01 | Outpatient (REF) | payer MEDICARE, SELFPAY | END 2020-03-04 17:21 | LOC: NCHCN 17:01 | PROVIDERS: PCP Internal Medicine; Visit Provider Internal Medicine | DX: R30.0 Dysuria (principal) | CPT/HCPCS: 87077; 87086; 87186 ==

== ENCOUNTER 2020-03-10 12:36 | Outpatient (REF) | payer MEDICARE, SELFPAY ==
[2020-03-10 21:50] LABS: ALT 31 U/L (16-63); AST 28 U/L (15-37); Albumin 3.3 g/dL (3.4-5.0); Alkaline Phosphatase 83 U/L (46-116); Anion Gap 2.3 mmol/L (3-11); BUN 18 mg/dL (7-18); Bilirubin, Total 0.4 mg/dL (0.2-1.0); CO2 36.7 mmol/L (21.0-32.0); CREATININE 1.05 mg/dL (0.70-1.30); Chloride 103 mmol/L (98-107); Glucose 94 mg/dL (74-106); Sodium 142 mmol/L (136-145); Total Protein 6.3 g/dL (6.4-8.2)
[2020-03-10 22:24] LABS: Abs Immature Grans 0.01 k/cumm (0.0-0.09); Absolute Basophil Count 0.01 k/cumm (0.0-0.2); Absolute Eosinophil Count 0.05 k/cumm (0.0-0.7); Absolute Lymphocyte Count 0.59 k/cumm (1.2-3.4); Absolute Monocyte Count 0.35 k/cumm (0.11-0.7); Absolute Neutrophil Count 1.86 k/cumm (1.2-6.7); Basophils % 0.3; Eosinophils % 1.7; HCT 33.3 % (40.0-50.0); HGB 10.7 g/dL (13.5-17.5); Immature Grans % 0.3 %; Lymphocytes % 20.6; Mean Corp. HGB Concentration 32.1 g/dL (32.0-36.0); Mean Corpuscular Hemoglobin 36.8 pg (27.0-33.0); Mean Corpuscular Volume 114.4 fL (80-95); Monocytes % 12.2; Neutrophils % 64.9; Platelet Count 236 x1000/uL (130-400); RBC 2.91 m/cumm (4.50-6.00); RBC Distribution Width 16.5 % (11.8-14.1); White Blood Cell Count 2.87 k/cumm (4.4-10.8)
[2020-03-10 22:31] LABS: Macrocytosis 3+
[2020-03-12 08:34] LABS: PSA, Diagnostic 36.6 ng/mL (0.0-6.5)
[2020-03-14 12:50] LABS: Testosterone, Total <7.0 ng/dL (240-950)
== END 2020-03-10 12:56 ==
LOC: NCHCN 12:36
PROVIDERS: PCP Internal Medicine; Visit Provider Internal Medicine
DX: C61 Malignant neoplasm of prostate (principal); C79.51 Secondary malignant neoplasm of bone
CPT/HCPCS: 80053; 84402; 84403; 84153; 85025

== ENCOUNTER 2020-03-31 08:10 | Outpatient (CLI) | payer MEDICARE, SELFPAY ==
[2020-04-01 12:55] LABS: COVID-19 RT-PCR Result NEGATIVE (Negative)
== END 2020-03-31 08:30 ==
PROVIDERS: PCP Internal Medicine; Visit Provider Podiatrist
DX: Z11.59 Encounter for screening for other viral diseases (principal)
CPT/HCPCS: U0003

== ENCOUNTER 2020-04-03 07:00 | Day surgery (SDC) | payer MEDICARE, SELFPAY ==
[2020-04-03 07:38] VITALS: BP 155/66; PULSE 62; RESP 16; TEMP 35.3; O2SAT 85
[2020-04-03] MEDS: Lactated Ringers 1,000 ML 80 ML IV (08:25)
[2020-04-03] MEDS: ceFAZolin 1 GM/50 ML BAG IVPB (10:00)
[2020-04-03] MEDS: Lidocaine 1% Pres-Free 5 ML VIAL (10:04)
[2020-04-03] MEDS: Bupivacaine 0.5% Pres-Free 30 ML VIAL (10:04)
--- NOTE | 2020-04-03 10:17 | AMP_PTH ---
PATIENT: Manjit Adrian LOC: [facility] U#:[id number] AGE/SX: 79/M ROOM: RE04/03/[address]: Ari Briceno : 1940 BED: DIS: 04/03/2020 SPEC #: [id number] RECD: 04/03/20 12:00 STATUS: TRAMAINE TORRES #: [id number] CLIFFORD: 04/03/20 10:[address]: Ari Briceno DEPT: Surgical Specimen RECD BY: Suzette Lee ENTERED: 04/03/20 12:01 SP TYPE: Amputation OTHR DR: Tonny Leslie Tissues: 1 - AMPUTATION FINGERS/TOES(NOT TRAUMA) Procedures: GROSS AND MICRO LEVEL 4 DECALCIFICATION Comments: [id number]
[2020-04-03 10:33] VITALS: BP 163/97; PULSE 56; RESP 20; TEMP 36.5; O2SAT 99
--- NOTE | 2020-04-03 10:36 | W.PM.DSUDISC ---
Discharge Plan Disposition Patient Disposition: HOME Condition: Good Discharge Details Reason For Visit: amputation left 2nd toe Attending Provider: Ari Briceno Primary Care Provider: Tonny Leslie Meds and New Rx's Prescriptions: New hydrocodone-acetaminophen [Argyle] 5-325 mg tablet 1 tab PO Q6H PRN (Reason: pain) Qty: 7 RF: 0 Continued metoprolol succinate 100 MG tablet extended release 24 hr 100 mg PO DAILY RF: 0 Lupron Depot (4 month) 30 MG syringe kit 30 mg IM .Q4 months RF: 0 multivitamin tablet 1 tab PO DAILY RF: 0 fluticasone propionate 50 mcg/actuation spray,suspension 1 spray BRIAN DAILY RF: 0 Xgeva 120 mg/1.7 mL (70 mg/mL) solution 120 mg SC Q6W RF: 0 lisinopril 5 mg tablet 10 mg PO DAILY Qty: 2 RF: 0 gabapentin 300 mg capsule 600 mg PO TID RF: 0 zinc oxide 20 % Ointment 1 applic topical TID Qty: 30 RF: 0 clotrimazole 1 % Cream 1 applic topical TID Qty: 30 RF: 0 vits A and D-white pet-lanolin Ointment 1 applic topical TID Qty: 56 RF: 0 Lynparza 150 mg Tablet 300 mg PO BID Qty: 0 RF: 0 calcium carbonate-vitamin D3 [Calcium 600 + D(3)] 600 mg(1,500mg) -400 unit Tablet 1 tab PO DAILY RF: 0 furosemide 40 mg tablet 20 mg PO DAILY RF: 0 fentanyl [Duragesic] 75 mcg/hr patch 72 hour 50 mcg transdermal Q48H RF: 0 Discharge Instructions Activity:: Elevate Remove Dressings/Wound Care:: Do Not Remove Shower/Bathe:: Cover Diet:: Normal Diet Discharge Orders Discharge Orders: Discharge Order (Routine); Ordered 04/03/20 Ordered By: Ari Briceno
[2020-04-03 10:38] VITALS: BP 188/78; PULSE 54; RESP 11; TEMP 36.5; O2SAT 99
--- NOTE | 2020-04-03 10:40 | W.PM.OP ---
Date of service: 04/03/20 Time of Service: 10:40 Operative Note Operative Note DATE OF PROCEDURE: 04/03/20 PRE-OP DIAGNOSIS: chronic ulcer left 2nd toe POST-OP DIAGNOSIS: same PROCEDURE: amputation left 2nd toe at MPJ SURGEON: Ari Briceno ANESTHESIA: MAC ESTIMATED BLOOD LOSS: 3 PATHOLOGY: other COMPLICATIONS: None Patient was transported to: PACU Patient's condition: stable Indications: 79-year-old white male with chronic ulceration and frequent infections afflicting the left second toe with question of osteomyelitis. Findings: No cori purulence appreciated. Chronic ulcer over the proximal phalanx region of the second toe extending to bone Procedure Description: Manjit was brought to the operative suite placed in the supine position where monitored anesthesia was achieved and local block of the left second toe was obtained utilizing 10 cc 50-50 mixture 1% lidocaine plain, 0.5% Marcaine plain. Timeout was performed via protocol. The left foot was prepped in the usual sterile podiatric fashion. Attention was directed to the dorsal aspect of the second toe where incision lines were planned starting from midline at the base of the proximal phalanx extending medially and lateral so as to encompass the digit. With a #15 scalpel the incision was started from dorsal along the medial side of the toe coming down to the plantar aspect and then starting dorsal and going laterally once again to the plantar aspect of the toe the skin incisions were then deepened in controlled depth fashion with hemostasis acquired with electrocautery the extensor tendon was then severed and the 15 blade advanced to bone the 15 blade was then advanced proximally and the dorsal joint capsule at the MPJ level released attention was now directed plantarly with a plantar flap was raised the flexor tendon was severed the blade was advanced down to the base of the proximal phalanx poor proximally and wound the joint capsule plantarly was released at this time the second toe was removed from the operative field and sent to pathology in formalin. The wound was inspected no purulent activity identified all bleeders electrocauterized but there was moderate generalized oozing due to his chronic edema the wound was subsequently closed utilizing simple interrupted suture 3-0 nylon good approximation of the skin edges was appreciated without undue stress. Xeroform gauze fluff compression dressings were applied. Manjit tolerated the procedure well sharp and sponge counts were correct he was extremely sleepy in spite of minimal anesthetics provided and he was sent to PACU for monitoring but will go home thereafter and will be followed by myself in the office next week thank you
[2020-04-03 10:43] VITALS: BP 147/63; PULSE 57; RESP 18; TEMP 36.5; O2SAT 99
[2020-04-03 11:34] VITALS: BP 144/65; PULSE 57; RESP 18; TEMP 36.7; O2SAT 100
--- NOTE | 2020-04-03 12:31 | W.PM.HP.N ---
Date of service: 04/03/20 Time of Service: 08:00 History of Present Illness History of Present Illness Chief Complaint: Chronic ulcer left second toe suspicious for osteomyelitis Narrative: Manjit is a 79-year-old male who has a four-month history of ulceration over the proximal interphalangeal region of his left second toe with frequent and recurring infections. The wound has probe to bone and fails to heal in spite of aggressive wound management procedures. He is being brought to the OR for amputation of the left second toe. He understands the permanency of the procedure as well as risks including failure to heal requiring more proximal interventions pain, scarring, and infection. All questions have been answered in detail multiple times and informed consent has been obtained. 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) Physeal fracture of phalanx of toe of left foot Pressure ulcer Buttocks TBI (traumatic brain injury) (Acute) Family History Mother Lung cancer Social History Smoking/Tobacco Use Status: Never Alcohol Intake: current Alcohol Intake frequency: a few times a month Alcohol type: hard liquor Drug use: Never Substance use type: does not use Household members: spouse Number of Children: 2 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; [employer]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 Do you feel safe at home: Yes Do you feel safe in your relationship?: Yes Additional Social history: Moved from [place] to [place] in 2017 to be cared for by ( x10 years previously) Meds Home Medications and Allergies Home Medications Medication Instructions Recorded Confirmed Type Lupron Depot (4 month) 30 mg IM .Q4 months 09/25/17 04/03/20 History metoprolol succinate 100 mg PO DAILY tab-cap 09/25/17 04/03/20 History denosumab 120 mg/1.7 mL (70 mg/mL) 120 mg SC Q6W 12/10/18 04/03/20 History subcutaneous solution fluticasone propionate 50 1 spray BRIAN DAILY 12/10/18 04/03/20 History mcg/actuation nasal spray,suspension gabapentin 300 mg capsule 600 mg PO TID tab-cap 12/10/18 04/03/20 History lisinopril 5 mg tablet 10 mg PO DAILY #2 tab-cap 12/10/18 04/03/20 History multivitamin 1 tab PO DAILY 12/10/18 04/03/20 History clotrimazole 1 applic TOPICAL TID #30 gm 09/15/19 04/03/20 Rx vits A and D-white pet-lanolin 1 applic TOPICAL TID #56 gm 09/15/19 04/03/20 Rx zinc oxide 1 applic TOPICAL TID #30 gm 09/15/19 04/03/20 Rx Lynparza 300 mg PO BID #0 tab 12/07/19 04/03/20 Rx calcium carbonate-vitamin D3 1 tab PO DAILY 04/01/20 04/03/20 History [Calcium 600 + D(3)] fentanyl [Duragesic] 50 mcg TRANSDERMAL Q48H 04/01/20 04/03/20 History furosemide 20 mg PO DAILY 04/01/20 04/03/20 History hydrocodone-acetaminophen [Raymond] 1 tab PO Q6H PRN #7 tab 04/03/20 Rx Allergies Allergy/AdvReac Type Severity Reaction Status Date / Time No Known Drug Allergies Allergy Unverified 04/03/20 07:24 Exam Narrative Exam Narrative: Head is normocephalic. Eyes PERRLA. Hearing is adequate. Uvula is midline. Heart had regular rate and rhythm without gallops rubs or murmurs Lung sosa are clear Abdomen is soft, nontender to palpation, obese Peripheral pulses are diminished but the feet are warm to the touch there is chronic venous stasis disease with +1 edema The left second toe has an ulceration overlying the proximal interphalangeal joint extending down to the midportion of the proximal phalanx he has a pale thin base which has probe to bone. Neurologically he does display findings of peripheral neuropathy Impressions: Chronic wound left second toe possible osteomyelitis Plan: Gonzalez being brought to the OR for surgical amputation of the left second toe at the [facility] level. He understands risk and complications of surgery pertaining to pain, scarring, infection, permanency of the procedure, failure to thrive potentially requiring revisional procedures. All questions have been answered in detail informed consents been obtained. Results Last Vital Signs Temp 36.7 C 04/03/20 11:34 Pulse 57 L 04/03/20 11:34 Resp 18 04/03/20 11:34 BP 144/65 H 04/03/20 11:34 Pulse Ox 100 04/03/20 11:34 COVID-19 Screening In the past 14 days, have you traveled outside of [place] or [place]?: NO
== END 2020-04-03 11:59 | disposition home or self-care (01) ==
PROVIDERS: PCP Internal Medicine; Visit Provider Podiatrist
PROC: (CPT 28820; principal; 2020-04-03 10:00)
DX: L97.526 Non-pressure chronic ulcer of other part of left foot with bone involvement without evidence of necrosis (principal); I70.245 Atherosclerosis of native arteries of left leg with ulceration of other part of foot; I12.9 Hypertensive chronic kidney disease with stage 1 through stage 4 chronic kidney disease, or unspecified chronic kidney disease; N18.3 Chronic kidney disease, stage 3 (moderate)
CPT/HCPCS: 28820; 88300; 88305; NC; 88311; J0690; J2001

== ENCOUNTER 2020-04-14 12:00 | Outpatient (REF) | payer MEDICARE, SELFPAY ==
[2020-04-14 21:27] LABS: Abs Immature Grans 0.01 k/cumm (0.0-0.09); Absolute Basophil Count 0.01 k/cumm (0.0-0.2); Absolute Eosinophil Count 0.04 k/cumm (0.0-0.7); Absolute Lymphocyte Count 1.03 k/cumm (1.2-3.4); Absolute Monocyte Count 0.47 k/cumm (0.11-0.7); Absolute Neutrophil Count 1.78 k/cumm (1.2-6.7); Basophils % 0.3; Eosinophils % 1.2; HCT 26.8 % (40.0-50.0); HGB 8.6 g/dL (13.5-17.5); Immature Grans % 0.3 %; Lymphocytes % 30.8; Mean Corp. HGB Concentration 32.1 g/dL (32.0-36.0); Mean Corpuscular Hemoglobin 37.7 pg (27.0-33.0); Mean Corpuscular Volume 117.5 fL (80-95); Mean Platelet Volume 10.8 fL (8.0-11.0); Monocytes % 14.1; Neutrophils % 53.3; Platelet Count 216 x1000/uL (130-400); RBC 2.28 m/cumm (4.50-6.00); RBC Distribution Width 17.5 % (11.8-14.1); White Blood Cell Count 3.34 k/cumm (4.4-10.8)
[2020-04-14 21:46] LABS: ALT 24 U/L (16-63); AST 21 U/L (15-37); Albumin 3.5 g/dL (3.4-5.0); Alkaline Phosphatase 83 U/L (46-116); Anion Gap 1.4 mmol/L (3-11); BUN 19 mg/dL (7-18); Bilirubin, Total 0.4 mg/dL (0.2-1.0); CO2 36.6 mmol/L (21.0-32.0); CREATININE 1.08 mg/dL (0.70-1.30); Calcium 8.6 mg/dL (8.5-10.1); Chloride 103 mmol/L (98-107); Glucose 96 mg/dL (74-106); Potassium 4.7 mmol/L (3.5-5.1); Sodium 141 mmol/L (136-145); Total Protein 6.3 g/dL (6.4-8.2)
[2020-04-14 22:19] LABS: Diff Comment RBC Morph Reviewed; Macrocytosis 3+
[2020-04-16 09:37] LABS: PSA, Diagnostic 24.9 ng/mL (0.0-6.5)
[2020-04-17 16:40] LABS: Testosterone, Total <7.0 ng/dL (240-950)
== END 2020-04-14 12:20 ==
LOC: NCHCN 12:00
PROVIDERS: PCP Internal Medicine; Visit Provider Internal Medicine
DX: C79.51 Secondary malignant neoplasm of bone (principal); C61 Malignant neoplasm of prostate
CPT/HCPCS: 80053; 84153; 84402; 84403; 85025

== ENCOUNTER 2020-05-04 14:25 | Outpatient (REF) | payer MEDICARE, SELFPAY ==
[2020-05-04 21:15] LABS: Abs Immature Grans 0.01 k/cumm (0.0-0.09); Absolute Eosinophil Count 0.03 k/cumm (0.0-0.7); Absolute Lymphocyte Count 0.91 k/cumm (1.2-3.4); Absolute Monocyte Count 0.38 k/cumm (0.11-0.7); Absolute Neutrophil Count 1.49 k/cumm (1.2-6.7); Eosinophils % 1.1; HCT 26.3 % (40.0-50.0); HGB 8.3 g/dL (13.5-17.5); Immature Grans % 0.4 %; Lymphocytes % 32.3; Mean Corp. HGB Concentration 31.6 g/dL (32.0-36.0); Mean Corpuscular Hemoglobin 38.1 pg (27.0-33.0); Mean Platelet Volume 10.1 fL (8.0-11.0); Monocytes % 13.5; Neutrophils % 52.7; Platelet Count 187 x1000/uL (130-400); RBC 2.18 m/cumm (4.50-6.00); RBC Distribution Width 18.4 % (11.8-14.1); White Blood Cell Count 2.82 k/cumm (4.4-10.8)
[2020-05-04 21:53] LABS: Diff Comment RBC Morph Reviewed
[2020-05-04 21:54] LABS: Macrocytosis 3+
[2020-05-04 21:56] LABS: Poikilocytes 1+
[2020-05-04 21:58] LABS: Mean Corpuscular Volume 120.6 fL (80-95)
== END 2020-05-04 14:45 ==
LOC: NCHCN 14:25
PROVIDERS: PCP Internal Medicine; Visit Provider Internal Medicine
DX: D63.0 Anemia in neoplastic disease (principal)
CPT/HCPCS: 85025

== ENCOUNTER 2020-05-11 23:58 | Inpatient (IN) | payer MEDICARE, SELFPAY ==
--- NOTE | 2020-05-11 23:45 | RT.EKG_ITS ---
APPROVED REPORT Exam: Resting ECG Patient Location: E <Conclusion> EKG was scanned in. Rate 92, sinus rhythm, intervals normal. No significant ST elevation or depress ion, inverted T wave in V3 and V4. No evidence of STEMI.
--- NOTE | 2020-05-11 23:58 | ED.GENADUL_ITS ---
Discharge Plan Disposition Patient Disposition: [facility] INPATIENT Condition: Serious Discharge Details Chief Complaint: AMS/LOC Clinical Impression: Sepsis, Pneumonia, Acute alteration in mental status, Chronic wound of extremity Primary Care Provider: Tonny Leslie ED Provider: Yuniel Gutiérrez Home Meds and New Rx's Prescriptions: No Action metoprolol succinate 100 MG tablet extended release 24 hr 100 mg PO DAILY RF: 0 Lupron Depot (4 month) 30 MG syringe kit 30 mg IM .Q4 months RF: 0 multivitamin tablet 1 tab PO DAILY RF: 0 fluticasone propionate 50 mcg/actuation spray,suspension 1 spray BRIAN DAILY RF: 0 Xgeva 120 mg/1.7 mL (70 mg/mL) solution 120 mg SC Q6W RF: 0 lisinopril 5 mg tablet 10 mg PO DAILY Qty: 2 RF: 0 gabapentin 300 mg capsule 600 mg PO TID RF: 0 zinc oxide 20 % Ointment 1 applic topical TID Qty: 30 RF: 0 clotrimazole 1 % Cream 1 applic topical TID Qty: 30 RF: 0 vits A and D-white pet-lanolin Ointment 1 applic topical TID Qty: 56 RF: 0 Lynparza 150 mg Tablet 300 mg PO BID Qty: 0 RF: 0 calcium carbonate-vitamin D3 [Calcium 600 + D(3)] 600 mg(1,500mg) -400 unit Tablet 1 tab PO DAILY RF: 0 furosemide 40 mg tablet 20 mg PO DAILY RF: 0 fentanyl [Duragesic] 75 mcg/hr patch 72 hour 50 mcg transdermal Q48H RF: 0 hydrocodone-acetaminophen [[place]] 5-325 mg tablet 1 tab PO Q6H PRN (Reason: pain) Qty: 7 RF: 0 Medical Decision Making 79-year-old male with a past medical history of congestive heart failure, metastatic prostate cancer, high cholesterol, hypertension, peripheral neuropathy, who had a left second toe amputation by Dr. Ryan 1.5 months ago, presents today for evaluation of altered mental status and fever. Per the patient's they were getting ready for bed and she noticed that he was a bit altered compared to normal. Took his temperature at home and it ranged from 10 3-1 05. EMS was called, upon their arrival they to noted an elevated temperature, foul odor coming from his breath or her foot. He also noted altered mental status, stable EKG, stable blood glucose. Patient was brought to the ER for further evaluation. Currently the patient's only complaint is achiness all over. He is mild to moderately altered. No additional historical components at this time. No other pertinent review of systems that the patient is able to answer. Physical exam demonstrates chronic venous stasis of his lower extremities, postop site of the second toe on the left demonstrates relatively clean dry and intact postop site, questionable foul odor, however it is difficult to differentiate the exact site while currently in POI precaution gear. No evidence of notable infection. Lung sounds are diminished throughout, no clear rhonchi. No clear rales. No meningeal signs that I can appreciate on exam. Patient's temperature is 99.9 here in the ED. I suspect that the patient is suffering from infectious encephalopathy. Patient moves all extremities, no focal deficits are noted. Normally he ambulates with a walker but he was too weak to do that tonight. Stroke is on the differential but notably less likely especially in conjunction with the fever. With his metastatic prostate disease we will get CT scan of the head, portable chest x- ray, x-ray of the foot to evaluate for gas or infectious components not visible externally. We will gently rehydrate, start broad-spectrum antibiotics of vancomycin, azithromycin, and Zosyn. Due to the current infectious climate we will also check for coronavirus. I did speak to the of the patient and discussed the plan with her. She is aware and agrees with the current plan as well as the expected admission. She will be going home to go to sleep. 2:49 AM Patient's laboratory work-up has returned, remains febrile, he will give a gram of Ofirmev, no white count however he does demonstrate macrocytic anemia. Hemoglobin does appear to be stable from last month though. D-dimer elevated as part of the COVID work-up, likely reflective of infectious etiology. VBG does demonstrate evidence of an elevated PCO2, lactate is 2.0. Troponin 0 0.07. Urinalysis negative for acute process. Chest x-ray per radiology shows evidence of left-sided infiltrate/consolidation. CT scan negative for acute process of the head. X-ray of the foot is negative for evidence of gas. Symptoms appear less likely to be caused from the patient's foot, concern for bacteremia, pneum onia. No nuchal rigidity on exam. Negative Kernig's and Brudzinski's. Symptoms appear inconsistent at this time with meningitis. Patient's PCO2 is elevated we have started him on BiPAP which she is tolerating well. Oxygenation remained stable. Discussed the case with Dr. Kolb, he agrees with the assessment and plan. I have extensively reviewed the treatment plan with the patient. I have addressed all patient concerns at this time. I have also discussed the plan with the admitting physician and they agree with the current assessment and plan and have agreed to assume responsibility for the patient. All parties demonstrate verbal understanding and agreement with our assessment and plan at this time. EKG 00: 09 Sinus rhythm, rate 92, intervals normal, inverted T wave in V3 V4, no significant ST elevations or depressions, no evidence of STEMI. Comparison to prior EKG from 01/08/2020 demonstrate similar but improved findings on todays EKG. FINDINGS: Brain: No intracranial hemorrhage, midline shift, or mass effect. Prominence of the CSF spaces and sulci in keeping with diffuse cerebral atrophy. Nonspecific periventricular and subcortical white matter heterogeneity likely related to chronic microvascular ischemic disease. No evidence of acute large territorial infarction. Ventricles: No ventriculomegaly. Bones/joints: No acute fracture. Sinuses: Visualized sinuses are unremarkable. No fluid levels. Mastoid air cells: Visualized mastoid air cells are well aerated. Soft tissues: Within normal limits. IMPRESSION: No acute intracranial findings. ASSESSMENT: ASPECTS ([facility] Stroke Program Early CT Score) is 10. Thank you for allowing us to participate in the care of your patient. Dictated and Authenticated by: Tere Falk MD 05/12/2020 2:03 AM Eastern Time ([place] & [place]) FINDINGS: Bones/joints: No acute fracture or malalignment. Diffuse osseous demineralization. Interval resection of the 2nd toe since 05/05/2017. Small amount of heterotopic bone and/or calcification in the surgical bed. Diffuse degenerative changes. Calcaneal enthesophytes. Soft tissues: Diffuse superficial soft tissue swelling. No definite subcutaneous gas is identified. IMPRESSION: 1. No acute fracture or malalignment. Interval resection of the 2nd toe. 2. Diffuse superficial soft tissue swelling. 3. Diffuse degenerative changes. Thank you for allowing us to participate in the care of your patient. Dictated and Authenticated by: Tere Falk MD 05/12/2020 1:13 AM Eastern Time ([place] & [place]) IMPRESSION: 1. Dense opacity in the left lower lung likely represents lobar atelectasis and/or pneumonia with pleural effusion. 2. Mild right perihilar opacities with small right pleural effusion may represent a component of CHF. Thank you for allowing us to participate in the care of your patient. Dictated and Authenticated by: Tere Falk MD [facility] General Date/Time Provider Initiated Documentation: 05/12/20 00:14 . HPI Narrative: 79-year-old male with a past medical history of congestive heart failure, metastatic prostate cancer, high cholesterol, hypertension, peripheral neuropathy, who had a left second toe amputation by Dr. Ryan 1.5 months ago, presents today for evaluation of altered mental status and fever. Per the patient's they were getting ready for bed and she noticed that he was a bit altered compared to normal. Took his temperature at home and it ranged from 10 3-1 05. EMS was called, upon their arrival they to noted an elevated temperature, foul odor coming from his breath or her foot. He also noted altered mental status, stable EKG, stable blood glucose. Patient was brought to the ER for further evaluation. Currently the patient's only complaint is achiness all over. He is mild to moderately altered. No additional historical components at this time. No other pertinent review of systems that the patient is able to answer. Related Data Home Medications Medication Instructions Recorded Confirmed Lupron Depot (4 month) 30 mg IM .Q4 months 09/25/17 04/03/20 metoprolol succinate 100 mg PO DAILY tab-cap 09/25/17 04/03/20 denosumab 120 mg/1.7 mL (70 mg/mL) 120 mg SC Q6W 12/10/18 04/03/20 subcutaneous solution fluticasone propionate 50 1 spray BRIAN DAILY 12/10/18 04/03/20 mcg/actuation nasal spray,suspension gabapentin 300 mg capsule 600 mg PO TID tab-cap 12/10/18 04/03/20 lisinopril 5 mg tablet 10 mg PO DAILY #2 tab-cap 12/10/18 04/03/20 multivitamin 1 tab PO DAILY 12/10/18 04/03/20 clotrimazole 1 applic TOPICAL TID #30 gm 09/15/19 04/03/20 vits A and D-white pet-lanolin 1 applic TOPICAL TID #56 gm 09/15/19 04/03/20 zinc oxide 1 applic TOPICAL TID #30 gm 09/15/19 04/03/20 Lynparza 300 mg PO BID #0 tab 12/07/19 04/03/20 calcium carbonate-vitamin D3 1 tab PO DAILY 04/01/20 04/03/20 [Calcium 600 + D(3)] fentanyl [Duragesic] 50 mcg TRANSDERMAL Q48H 04/01/20 04/03/20 furosemide 20 mg PO DAILY 04/01/20 04/03/20 hydrocodone-acetaminophen [[place]] 1 tab PO Q6H PRN #7 tab 04/03/20 Previous Rx's Medication Instructions Recorded clotrimazole 1 applic TOPICAL TID #30 gm 09/15/19 vits A and D-white pet-lanolin 1 applic TOPICAL TID #56 gm 09/15/19 zinc oxide 1 applic TOPICAL TID #30 gm 09/15/19 Lynparza 300 mg PO BID #0 tab 12/07/19 hydrocodone-acetaminophen [[place]] 1 tab PO Q6H PRN #7 tab 04/03/20 Allergies Allergy/AdvReac Type Severity Reaction Status Date / Time No Known Drug Allergies Allergy Unverified 05/12/20 00:04 General BENNY: 2 Review of Systems All systems reviewed & are unremarkable except as noted in HPI and below PFSH Medical History AWILDA (acute kidney injury) (Resolved) Bone metastases (Acute) Chronic kidney disease, stage 3 Decubital ulcer (Resolved) Edema (Resolved) Hx of acute renal failure Hyperlipidemia (Chronic) Hypertension (Chronic) Left foot pain (Resolved) Left rotator cuff tear (Chronic) Lichen sclerosus (Acute) Memory loss (Chronic) Metastatic malignant neoplasm to prostate (Chronic) Mononeuropathy of left lower extremity Peripheral edema 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) Physeal fracture of phalanx of toe of left foot Pressure ulcer Buttocks TBI (traumatic brain injury) (Acute) Family History Mother Lung cancer Social History Smoking/Tobacco Use Status: Never Alcohol Intake: current Alcohol Intake frequency: a few times a month Alcohol type: hard liquor Drug use: Never Substance use type: does not use Household members: spouse Number of Children: 2 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 3.ENT: Atraumatic external nose and ears. Moist MM. Neck: Symmetric, trachea midline, No thyromegaly. Patient demonstrates good movement of cervical neck. There is no nuchal rigidity, no nuchal tenderness. Patient is able to flex the neck without any difficulty or significant pain. Negative Kernig's and Brudzinski sign. 4.CVS: +S1/S2, No murmurs or gallops. Peripheral pulses 2+ and equal in all extremities. Brisk capillary refill in all extremities. 5.RESP: Unlabored respiratory effort. Diminished breath sounds throughout, however no clear clear wheezes rales or rhonchi. 6.GI: Soft, Nontender/Nondistended, No hepatosplenomegaly. No guarding or rebound. Mildly obese. Bowel sounds present but reduced. 7.MSK: Normocephalic/Atraumatic, chronic cutaneous venous stasis swelling of the lower extremities bilaterally. No significant pitting edema. Minimal to mild swelling of the left lower foot compared to the right. Postop site is relatively clean. No clear drainage. No redness. No significant atypical warmth. Dorsalis pedis and posterior tibial pulse bilaterally is a faint +1. Decreased capillary refill bilaterally. 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 Sensation grossly intact, no focal neurologic deficits. 10.Psych: (AAO) x1, patient mild to moderately altered,
[2020-05-12] VITALS (67 sets, daily range): BP systolic 91–148; BP diastolic 34–75; PULSE 59–99; RESP 9–27; TEMP 36–40.3; O2SAT 78–100
[2020-05-12] MEDS: Normal Saline 500 ML IV (00:30)
[2020-05-12 00:34] LABS: BE (Venous) 10.7 mmol/L (-3-3); HCO3 (Venous) 36 mmol/L (22-28); O2 Sat (Venous) 49 % (70-80); TCO2 (Venous) 35 mmol/L (22-29); pH (Venous) 7.36 (7.35-7.45); pO2 (Venous) 29 mm/Hg (28-44)
--- NOTE | 2020-05-12 00:35 | DI.RAD_ITS ---
EXAM: XR PORTABLE CHEST AP CLINICAL HISTORY: AMS, Fever, Hx CHF, R/o pneumonia TECHNIQUE: COMPARISON: CR,XR XR CHEST 2V PA LATERAL from 01/11/2020 FINDINGS: There is predominant opacification of the left lung base, this may be on the basis of consolidation. Pleural effusion may also be present. There are right perihilar pulmonary predominantly reticular opacities, question mild diffuse process such as CHF. There does appear to be cardiomegaly. IMPRESSION: Findings suggesting possible left basilar pneumonia, CHF may be present as well. Follow-up PA and la teral chest suggested.
--- NOTE | 2020-05-12 00:40 | DI.RAD_ITS ---
EXAM: XR FOOT LT COMPLETE CLINICAL HISTORY: post op 2nd toe removal, septic, eval gas TECHNIQUE: COMPARISON: CR XR CHEST 1V IN DI DEPT from 05/01/2019 ECG EKG from 01/08/2020 FINDINGS: Three views were obtained there is marked demineralization of the bones of the foot and ankle. There are severe degenerative changes noted at multiple sites. There has been a prior amputation of the 2 nd toe. No gross destructive process seen, no gross soft tissue gas identified. If there is a high clinical suspicion of osteomyelitis additional evaluation with MR may be considered. IMPRESSION:
[2020-05-12 00:43] LABS: Abs Immature Grans 0.01 k/cumm (0.0-0.09); Absolute Basophil Count 0.01 k/cumm (0.0-0.2); Absolute Eosinophil Count 0.02 k/cumm (0.0-0.7); Absolute Lymphocyte Count 0.35 k/cumm (1.2-3.4); Absolute Monocyte Count 0.34 k/cumm (0.11-0.7); Absolute Neutrophil Count 4.81 k/cumm (1.2-6.7); Basophils % 0.2; Eosinophils % 0.4; HCT 25.3 % (40.0-50.0); HGB 8.2 g/dL (13.5-17.5); Immature Grans % 0.2 %; Lymphocytes % 6.3; Mean Corp. HGB Concentration 32.4 g/dL (32.0-36.0); Mean Corpuscular Volume 123.4 fL (80-95); Mean Platelet Volume 9.8 fL (8.0-11.0); Monocytes % 6.1; Neutrophils % 86.8; Platelet Count 196 x1000/uL (130-400); RBC 2.05 m/cumm (4.50-6.00); RBC Distribution Width 18.4 % (11.8-14.1); White Blood Cell Count 5.54 k/cumm (4.4-10.8)
[2020-05-12 00:47] LABS: Ammonia 32 umol/L (11-32)
[2020-05-12 00:48] LABS: pCO2 (Venous) 64 mm/Hg (34-47)
[2020-05-12 00:54] LABS: ALT 33 U/L (16-63); AST 31 U/L (15-37); Albumin 3.4 g/dL (3.4-5.0); Alkaline Phosphatase 90 U/L (46-116); Anion Gap 5.2 mmol/L (3-11); BUN 22 mg/dL (7-18); Bilirubin, Total 0.4 mg/dL (0.2-1.0); C-Reactive Protein 0.51 mg/dL (0.0-0.3); CO2 34.8 mmol/L (21.0-32.0); CREATININE 1.23 mg/dL (0.70-1.30); Calcium 8.4 mg/dL (8.5-10.1); Chloride 105 mmol/L (98-107); Estimated GFR 56.91 (mL/min/1.73m2); Glucose 138 mg/dL (74-106); LDH 234 U/L (85-227); Potassium 4.1 mmol/L (3.5-5.1); Sodium 145 mmol/L (136-145); Total Protein 6.6 g/dL (6.4-8.2)
[2020-05-12 00:57] LABS: Troponin I 0.07 ng/mL (<0.06)
[2020-05-12] MEDS: AZITHROMYCIN 500 MG in Normal Saline 250 ML 250 MG IVPB (01:00)
[2020-05-12] MEDS: ACETAMINOPHEN 1,000 MG/100 ML BTL 400 MG IVPB ×2 (01:10→08:33)
[2020-05-12 01:12] LABS: Diff Comment Agrees w/ Instrument
[2020-05-12 01:13] LABS: Anisocytosis 1+; Macrocytosis 2+; Poikilocytes 1+
[2020-05-12] MEDS: Ondansetron 4 MG/2 ML VIAL IVP (01:13)
--- NOTE | 2020-05-12 01:13 | DI.VRAD_ITS ---
PROCEDURE INFORMATION: Exam: XR Left Foot Complete Exam date and time: 05/12/2020 12:37 AM Age: 79 years old Clinical indication: Pain; Foot; Left; Prior surgery; Surgery date: 1-6 months; Surgery type: 2nd toe removal unknown when surgery was; Additional info: Post op 2nd toe removal, septic, eval gas TECHNIQUE: Imaging protocol: XR Left foot. Views: 3 or more views. COMPARISON: CR LEFT GREAT TOE 05/05/2017 2:19 PM FINDINGS: Bones/joints: No acute fracture or malalignment. Diffuse osseous demineralization. Interval resection of the 2nd toe since 05/05/2017. Small amount of heterotopic bone and/or calcification in the surgical bed. Diffuse degenerative changes. Calcaneal enthesophytes. Soft tissues: Diffuse superficial soft tissue swelling. No definite subcutaneous gas is identified. IMPRESSION: 1. No acute fracture or malalignment. Interval resection of the 2nd toe. 2. Diffuse superficial soft tissue swelling. 3. Diffuse degenerative changes. Dictated and Authenticated by: Tere Falk MD. Ordering:CARYN Brice MD
[2020-05-12 01:16] LABS: D-Dimer 1126 ng/mlFEU (<500)
--- NOTE | 2020-05-12 01:17 | DI.VRAD_ITS ---
PROCEDURE INFORMATION: Exam: XR Chest, 1 View Exam date and time: 05/12/2020 12:32 AM Age: 79 years old Clinical indication: Fever and other: AMS; Patient HX: AMS, fever, HX chf, R/O pneumonia TECHNIQUE: Imaging protocol: XR of the chest Views: 1 view. COMPARISON: CR XR CHEST 2V PA LATERAL 01/11/2020 11:48 AM FINDINGS: Lungs: Right basilar linear atelectasis. In addition, there is left lower lung dense opacity, increased in comparison to 01/11/2020, this may represent lobar atelectasis and or pneumonia. Mild right perihilar opacities may represent mild CHF. Probable small bilateral pleural effusions, left larger than right. No pneumothorax. Pleural space: See Lungs finding. Heart/Mediastinum: The cardiomediastinal silhouette is unchanged with cardiac enlargement. Bones/joints: Degenerative changes of the shoulders and acromioclavicular joints. Chronic distal left clavicle deformity. Multiple chronic rib fractures. IMPRESSION: 1. Dense opacity in the left lower lung likely represents lobar atelectasis and/or pneumonia with pleural effusion. 2. Mild right perihilar opacities with small right pleural effusion may represent a component of CHF. Dictated and Authenticated by: Tere Falk MD. Ordering:CARYN Brice MD
[2020-05-12 01:25] LABS: Ferritin 219 ng/mL (26-388)
[2020-05-12 01:26] LABS: Procalcitonin 0.1 ng/mL
[2020-05-12 01:27] LABS: Bilirubin Negative (Negative); Blood Negative (Negative); Clarity Clear (Clear); Glucose Negative (Negative); Ketones Negative (Negative); Leukocyte Esterase Negative (Negative); Nitrite Negative (Negative); Urobilinogen 0.2 EU/dL (Up TO 0.2)
--- NOTE | 2020-05-12 01:35 | DI.CT_ITS ---
EXAM: CT HEAD WO CLINICAL HISTORY: altered,febrile,metastatic cancer, r/o stroke/mass TECHNIQUE: COMPARISON: CT CT HEAD WO from 12/04/2019 FINDINGS: Noncontrast cranial CT was performed. There is moderate generalized cerebral atrophy and there are p atchy areas of decreased attenuation in periventricular white matter bilaterally consistent with micr ovascular ischemic changes. The orbital and temporal bone structures appear intact. Visualized mast oid air cells and paranasal sinuses are well aerated. IMPRESSION: No evidence of acute intracranial process.
[2020-05-12 01:38] LABS: Epithelial Cells Negative HPF (Negative); RBC Negative HPF (0-2); WBC Negative HPF (0-5)
[2020-05-12 01:39] LABS: Bacteria Negative HPF (Negative); C & S Indicated? No; Casts Negative LPF (Negative); Crystals Negative HPF (Negative); Mucus Trace (Negative)
--- NOTE | 2020-05-12 01:58 | W.PM.HP.N ---
Date of service: 05/12/20 Time of Service: 01:58 Assessment and Plan Assessment and plan (1) Pneumonia: Status: Ruled-out Assessment and plan: Pneumonia. I think this can reasonably account for change mental status, [employer] infection not likely. Will continue Abx (I don't think Vanco is necessary as there is no sign infection in toe). A degree of ventilatory insufficiency is noted but likely chronic given pH and compensatory HCO3. Will provisionally treat as PUI but COVID less likely. Progressive anemia and extreme macrocytosis noted, perhaps due to Lymparza. Will check B12 and folate levels. Note that we have no confirmation on any meds, will hold pending further info. Patient remains DNR History of Present Illness History of Present Illness Chief Complaint: change mental status Narrative: 79 male with h/o metastatic prostate, s/p toe amp last month, multiple problems, here with one day change mental status. In ER findings of note for temp to 40.3 and LLL pneumonia. Toe surgical site though not well healed did not appear infected and film neg. VBG showed CO2 64 with pH 7.36, placed on BiPAP Head CT neg. Cxx obtained and patient given Rocephin, Zithro and Vanco. Admitted for further eval. Patient unable to provide any history. 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) Physeal fracture of phalanx of toe of left foot Pressure ulcer Buttocks TBI (traumatic brain injury) (Acute) Family History Mother Lung cancer Social History Smoking/Tobacco Use Status: Never Alcohol Intake: current Alcohol Intake frequency: a few times a month Alcohol type: hard liquor Drug use: Never Substance use type: does not use Household members: spouse Number of Children: 2 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; [employer]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 Do you feel safe at home: Yes Do you feel safe in your relationship?: Yes Additional Social history: Moved from [place] to [place] in 2017 to be cared for by ( x10 years previously) Meds Home Medications and Allergies Home Medications Medication Instructions Recorded Confirmed Type Lupron Depot (4 month) 30 mg IM .Q4 months 09/25/17 04/03/20 History metoprolol succinate 100 mg PO DAILY tab-cap 09/25/17 04/03/20 History denosumab 120 mg/1.7 mL (70 mg/mL) 120 mg SC Q6W 12/10/18 04/03/20 History subcutaneous solution fluticasone propionate 50 1 spray BRIAN DAILY 12/10/18 04/03/20 History mcg/actuation nasal spray,suspension gabapentin 300 mg capsule 600 mg PO TID tab-cap 12/10/18 04/03/20 History lisinopril 5 mg tablet 10 mg PO DAILY #2 tab-cap 12/10/18 04/03/20 History multivitamin 1 tab PO DAILY 12/10/18 04/03/20 History clotrimazole 1 applic TOPICAL TID #30 gm 09/15/19 04/03/20 Rx vits A and D-white pet-lanolin 1 applic TOPICAL TID #56 gm 09/15/19 04/03/20 Rx zinc oxide 1 applic TOPICAL TID #30 gm 09/15/19 04/03/20 Rx Lynparza 300 mg PO BID #0 tab 12/07/19 04/03/20 Rx calcium carbonate-vitamin D3 1 tab PO DAILY 04/01/20 04/03/20 History [Calcium 600 + D(3)] fentanyl [Duragesic] 50 mcg TRANSDERMAL Q48H 04/01/20 04/03/20 History furosemide 20 mg PO DAILY 04/01/20 04/03/20 History hydrocodone-acetaminophen [[place]] 1 tab PO Q6H PRN #7 tab 04/03/20 Rx Allergies Allergy/AdvReac Type Severity Reaction Status Date / Time No Known Drug Allergies Allergy Unverified 05/12/20 00:04 Exam Narrative Exam Narrative: 125/38, 91, 40.2, 27, 96% BiPAP. HEENT no signs trauma; neck supple; lungs minimal BS on left; heart RRR; abdomen soft and NT; extremities trace pedal edema, s/p left toe #2 amp, site w/o d/c, neuro nonspecific response to noxious stimuli, seems to be moving left more than right Results Labs Result diagrams: 05/12/20 00:25 05/12/20 00:25 Labs: Laboratory Results - last 24 hr 05/12/20 05/12/20 05/12/20 00:25 00:25 00:25 WBC RBC Hgb Hct MCV MCH MCHC RDW Plt Count MPV Immature Gran % Neutrophils % Lymphocytes % Monocytes % Eosinophils % Basophils % Absolute Neutrophils Absolute Lymphocytes Absolute Monocytes Absolute Eosinophils Absolute Basophils Differential Comment RBC Morphology Poikilocytosis Anisocytosis Macrocytosis D-Dimer VBG pH VBG pCO2 VBG pO2 VBG HCO3 VBG Total CO2 VBG O2 Saturation VBG Base Excess Sodium 145 Potassium 4.1 Chloride 105 Carbon Dioxide 34.8 H Anion Gap 5.2 BUN 22 H Creatinine 1.23 Estimated GFR/1.73 m2 56.91 Glucose 138 H Lactate 2.0 H Calcium 8.4 L Ferritin 219 Total Bilirubin 0.4 AST 31 ALT 33 Alkaline Phosphatase 90 Ammonia 32 Lactate Dehydrogenase 234 H Troponin I 0.07 C-Reactive Protein 0.51 H Total Protein 6.6 Albumin 3.4 Procalcitonin 0.1 Urine Color Urine Clarity Urine pH Ur Specific [place] Urine Protein Urine Ketones Urine Blood Urine Nitrite Urine Bilirubin Urine Urobilinogen Ur Leukocyte Esterase Urine RBC Urine WBC Ur Epithelial Cells Urine Crystals Urine Bacteria Urine Casts Urine Mucus Ur Culture Indicated? Urine Glucose 05/12/20 05/12/20 05/12/20 00:25 00:25 00:25 WBC 5.54 RBC 2.05 L Hgb 8.2 L Hct 25.3 L MCV 123.4 H MCH 40.0 H MCHC 32.4 RDW 18.4 H Plt Count 196 MPV 9.8 Immature Gran % 0.2 Neutrophils % 86.8 Lymphocytes % 6.3 Monocytes % 6.1 Eosinophils % 0.4 Basophils % 0.2 Absolute Neutrophils 4.81 Absolute Lymphocytes 0.35 L Absolute Monocytes 0.34 Absolute Eosinophils 0.02 Absolute Basophils 0.01 Differential Comment Agrees w/ instrument RBC Morphology See below Poikilocytosis 1+ Anisocytosis 1+ Macrocytosis 2+ D-Dimer 1126 H VBG pH 7.36 VBG pCO2 64 H* VBG pO2 29 VBG HCO3 36 H VBG Total CO2 35 H VBG O2 Saturation 49 L VBG Base Excess 10.7 H Sodium Potassium Chloride Carbon Dioxide Anion Gap BUN Creatinine Estimated GFR/1.73 m2 Glucose Lactate Calcium Ferritin Total Bilirubin AST ALT Alkaline Phosphatase Ammonia Lactate Dehydrogenase Troponin I C-Reactive Protein Total Protein Albumin Procalcitonin Urine Color Urine Clarity Urine pH Ur Specific [place] Urine Protein Urine Ketones Urine Blood Urine Nitrite Urine Bilirubin Urine Urobilinogen Ur Leukocyte Esterase Urine RBC Urine WBC Ur Epithelial Cells Urine Crystals Urine Bacteria Urine Casts Urine Mucus Ur Culture Indicated? Urine Glucose 05/12/20 00:52 WBC RBC Hgb Hct MCV MCH MCHC RDW Plt Count MPV Immature Gran % Neutrophils % Lymphocytes % Monocytes % Eosinophils % Basophils % Absolute Neutrophils Absolute Lymphocytes Absolute Monocytes Absolute Eosinophils Absolute Basophils Differential Comment RBC Morphology Poikilocytosis Anisocytosis Macrocytosis D-Dimer VBG pH VBG pCO2 VBG pO2 VBG HCO3 VBG Total CO2 VBG O2 Saturation VBG Base Excess Sodium Potassium Chloride Carbon Dioxide Anion Gap BUN Creatinine Estimated GFR/1.73 m2 Glucose Lactate Calcium Ferritin Total Bilirubin AST ALT Alkaline Phosphatase Ammonia Lactate Dehydrogenase Troponin I C-Reactive Protein Total Protein Albumin Procalcitonin Urine Color Yellow Urine Clarity Clear Urine pH 7.0 Ur Specific [place] 1.020 Urine Protein 30 H Urine Ketones Negative Urine Blood Negative Urine Nitrite Negative Urine Bilirubin Negative Urine Urobilinogen 0.2 Ur Leukocyte Esterase Negative Urine RBC Negative Urine WBC Negative Ur Epithelial Cells Negative Urine Crystals Negative Urine Bacteria Negative Urine Casts Negative Urine Mucus Trace Ur Culture Indicated? No Urine Glucose Negative Last Vital Signs Temp 40.2 C H 05/12/20 01:50 Pulse 90 05/12/20 01:46 Resp 27 H 05/12/20 01:50 BP 125/38 L 05/12/20 01:46 Pulse Ox 95 05/12/20 01:50 COVID-19 Screening Have you,or household,traveled outside [place] in last 14 days?: No Had IN PERSON contact w/suspected or confirmed C-19 person: No
[2020-05-12 01:59] LABS: NT-proBNP 2671 pg/mL (<300)
--- NOTE | 2020-05-12 02:03 | DI.VRAD_ITS ---
PROCEDURE INFORMATION: Exam: CT Head Without Contrast Exam date and time: 05/12/2020 1:33 AM Age: 79 years old Clinical indication: Altered mental status/memory loss; Confusion or disorientation; Patient HX: Altered, febrile, metastatic cancer, R/O stroke/mass TECHNIQUE: Imaging protocol: Computed tomography of the head without contrast. Radiation optimization: All CT scans at this facility use at least one of these dose optimization techniques: automated exposure control; mA and/or kV adjustment per patient size (includes targeted exams where dose is matched to clinical indication); or iterative reconstruction. Other technique: STROKE PROTOCOL was implemented. COMPARISON: CT HEAD WO 12/04/2019 3:22 PM FINDINGS: Brain: No intracranial hemorrhage, midline shift, or mass effect. Prominence of the CSF spaces and sulci in keeping with diffuse cerebral atrophy. Nonspecific periventricular and subcortical white matter heterogeneity likely related to chronic microvascular ischemic disease. No evidence of acute large territorial infarction. Ventricles: No ventriculomegaly. Bones/joints: No acute fracture. Sinuses: Visualized sinuses are unremarkable. No fluid levels. Mastoid air cells: Visualized mastoid air cells are well aerated. Soft tissues: Within normal limits. IMPRESSION: No acute intracranial findings. ASSESSMENT: ASPECTS ([place] Stroke Program Early CT Score) is 10. Dictated and Authenticated by: Tere Falk MD. Ordering:CARYN Brice MD
[2020-05-12] MEDS: PIPERACILLIN/TAZO 4.5 GM in Normal Saline 100 ML IVPB (02:30)
[2020-05-12] MEDS: VANCOMYCIN 2,000 MG in Normal Saline 500 ML 333.3333 MG IVPB (02:30)
[2020-05-12 02:59] LABS: HCO3 (Venous) 32 mmol/L (22-28); O2 Sat (Venous) 96 % (70-80); TCO2 (Venous) 31 mmol/L (22-29); pCO2 (Venous) 52 mm/Hg (34-47); pO2 (Venous) 78 mm/Hg (28-44)
[2020-05-12] MEDS: cefTRIAXone 1,000 MG in Normal Saline 50 ML 100 MG IVPB (04:58)
[2020-05-12] MEDS: Lactated Ringers 1,000 ML 100 ML IV ×2 (05:13→15:26)
[2020-05-12 07:21] LABS: Anion Gap 4.3 mmol/L (3-11); BUN 25 mg/dL (7-18); CO2 33.7 mmol/L (21.0-32.0); CREATININE 1.53 mg/dL (0.70-1.30); Calcium 7.9 mg/dL (8.5-10.1); Chloride 108 mmol/L (98-107); Estimated GFR 44.24 (mL/min/1.73m2); Glucose 149 mg/dL (74-106); Potassium 4.1 mmol/L (3.5-5.1); Sodium 146 mmol/L (136-145)
--- NOTE | 2020-05-12 07:39 | PDOC.CMIN ---
- If Service Date Differs Date of service: 05/12/20 Time of Service: 07:39 Care Management Initial Assess REASON FOR HOSPITALIZATION:: Pneumonia PAST MEDICAL HISTORY/PAST SURGICAL HISTORY:: Medical History . AWILDA (acute kidney injury) (Resolved). Bone metastases (Acute). Chronic kidney disease, stage 3. Decubital ulcer (Resolved). Edema (Resolved). Hx of acute renal failure. Hyperlipidemia (Chronic). Hypertension (Chronic). Left foot pain (Resolved). Left rotator cuff tear (Chronic). Lichen sclerosus (Acute). Memory loss (Chronic). Metastatic malignant neoplasm to prostate (Chronic). Mononeuropathy of left lower extremity. Peripheral edema. 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 Physeal fracture of phalanx of toe of left foot. Pressure ulcer. Buttocks. TBI (traumatic brain injury) (Acute) PREVIOUS FUNCTIONAL STATUS/SOCIAL/FAMILY SUPPORTS:: Lester lives with his spouse in [place], [place] in a single family home. They do have a boarder who helps with meals and other tasks around the home. 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 He uses a walker to ambulate. His mobility is very limited due to his neuropathy. He needs assistance with care which his spouse provides. CURRENT FUNCTIONAL STATUS:: CM was unable to visit with Lester today as he is currently isolated as a PUI. He is currently on bipap in the ICU. Per nursing, he is alert and knows who he is and his date of but is a bit fuzzy about why he is here. His was updated by the ICU staff this morning and will be in to visit if/when a negative Covid test result is confirmed. ADVANCE DIRECTIVES:: None on file Has patient been provided with info about the portal/API?: Yes Did the patient sign up for the portal?: No CODE STATUS:: DNR/DNI INSURANCE COVERAGE / FINANCIAL ISSUES:: Medicare. AARP CURRENT HOME/COMMUNITY SERVICES/EQUIPMENT:: FWW, 4WW, transport chair, shower bench, grab bars PRIMARY CARE PHYSICIAN:: Dr. Leslie POTENTIAL DISCHARGE NEEDS:: Follow up with PCP and discharge plan of care PATIENT/FAMILY EDUCATION NEEDS:: Discharge and follow up plans, limitations, Ask Me Three TRANSPORTATION:: with via private vehicle PLAN:: Lester will likely return home, possibly with home health services, when medically cleared. He will transport via private vehicle with his and follow up with his PCP. CM will continue to support patient, family and discharge planning needs.
[2020-05-12 08:23] LABS: Vitamin B12 437 pg/mL (193-986)
[2020-05-12 08:24] LABS: BE 6.8 mmol/L (-3-3); HCO3 33 mmol/L (22-28); pH 7.33 (7.35-7.45); pO2 94 mmHg (83-108); sO2 98 % (94-98); tCO2 32 mmol/L (22-29)
[2020-05-12 08:29] LABS: FIO2 40 %; Site Left Radial; pCO2 63 mmHg (34-47)
[2020-05-12] MEDS: Enoxaparin 40 MG/0.4 ML SYR SC (08:33)
[2020-05-12 09:09] LABS: Folate 19.9 ng/mL (8.6-20.0)
[2020-05-12] MEDS: fentaNYL 50 MCG PATCH TD (11:27)
--- NOTE | 2020-05-12 13:30 | PHA.REVIEW ---
Pharmacy Admission Review - Admission Clinical Review (Last Reviewed 05/12/20 @ 02:08 by Abisai Kolb MD) Sepsis (Acute) Pneumonia (Acute) Acute alteration in mental status (Acute) Chronic wound of extremity (Acute) No Known Drug Allergies Allergy (Unverified 05/12/20 00:04) Height 5 ft 8 in Weight 108.862 kg - Renal Dosing Renal Dosing: BUN 25 mg/dL (7-18) H 05/12/20 06:45 Creatinine 1.53 mg/dL (0.70-1.30) H 05/12/20 06:45 Medications needing adjustments: Reviewed (Crcl ~47.6 mL/min using adjusted body weight, current meds okay) - Anticoagulation Anticoagulation: Hgb 8.2 g/dL (13.5-17.5) L 05/12/20 00:25 Hct 25.3 % (40.0-50.0) L 05/12/20 00:25 Plt Count 196 x1000/uL (130-400) 05/12/20 00:25 Creatinine 1.53 mg/dL (0.70-1.30) H 05/12/20 06:45 DVT Prohphylaxis: Reviewed Medications: Enoxaparin - Opiate Usage Evaluate Pain Scale/Pains Meds: Reviewed Scheduled Bowel Reg ordered if on Opiates?: No (will mention to provider) - Relevant Labs Sodium 146 mmol/L (136-145) H 05/12/20 06:45 Potassium 4.1 mmol/L (3.5-5.1) 05/12/20 06:45 Chloride 108 mmol/L (98-107) H 05/12/20 06:45 C-Reactive Protein 0.51 mg/dL (0.0-0.3) H 05/12/20 00:25 Electrolytes, C-Reactive P, ESR: Reviewed - DM Control DM Control: Glucose 149 mg/dL (74-106) H 05/12/20 06:45 Insulin Dosing: N/A (no current orders, home meds or A1c.) - Heart Failure/PA Heart Failure/PA: Troponin I 0.07 ng/mL (<0.06) 05/12/20 00:25 NT-Pro-B Natriuret Pep 2671 pg/mL (<300) H 05/12/20 00:17 EF%, TEDDY's, B-Blockers, Diuretics: N/A - BP Control BP Control: Blood Pressure [Left Arm] 105/48 Blood Pressure [Left Arm] 124/75 Blood Pressure 101/46 Blood Pressure 91/40 Blood Pressure 122/72 Blood Pressure 105/48 Blood Pressure 108/47 If elevated: N/A - Qtc Review If Elevated: N/A - IV to PO Switch IV Medications: Reviewed - Home Meds Home Med List reviewed: Reviewed (Multiple [employer] depressants: fentanyl, gabapentin, hydrocodone/APAP. Separate admin of calcium/vit D from multivitamin) Relevent Home Meds Not ordered & why?: Only home med ordered currently ordered was fentanyl. Nursing got updated med list from pharmacy and completed med rec this morning. Watch for MD to order home meds - Current meds Current Medication Order Review: Reviewed - Comments Comments/Follow Ups: Watch BP, BG, H/H, for culture results and for med changes (IV to PO, addition of BM meds, and home med orders). Antibiotic Activity - Pharmacy Antibiotic Review Pharmacy Antibiotic Activity: Reviewed, no change (ceftriaxone and azithromycin for pneumonia (day 1). Blood cultures ordered, one growing gram+ cocci other still pending.)
[2020-05-12 14:28] LABS: COVID-19 RT-PCR UVMMC Result Negative (Negative)
[2020-05-12] MEDS: cefTRIAXone 1 GM/50 ML BAG IVPB (15:37)
[2020-05-12] MEDS: VANCOMYCIN 2,000 MG in Normal Saline 500 ML 30 MG IVPB (15:37)
--- NOTE | 2020-05-12 15:40 | W.PM.PROGNOT ---
Date of Service Date of service: 05/12/20 Time of Service: 15:40 Assessment and Plan Assessment and plan (1) Sepsis: Status: Acute Assessment and plan: Patient is has evidence of gram-positive bacteremia and an associated right lower lobe infiltrate. We will continue current treatment with Rocephin 2 g IV daily as he seems to be responding well to this. We will attempt to get sputum culture. We will place him on aerosolized bronchodilators supplemental oxygen and IV corticosteroids. Qualifiers: Sepsis type: Streptococcus, unspecified Sepsis acute organ dysfunction status: with acute organ dysfunction Acute respiratory failure type: with hypercapnia (2) Pneumonia: Status: Acute Qualifiers: Pneumonia type: due to Pneumococcus Laterality: right Lung location: lower lobe of lung Qualified Code(s): J13 - Pneumonia due to Streptococcus pneumoniae (3) Chronic wound of extremity: Status: Acute Assessment and plan: We will asked Dr. Briceno to follow-up regarding his left second toe amputation (4) Hypercapnic respiratory failure: Status: Acute Assessment and plan: Combination of pneumonia and probable underlying obstructive sleep apnea. Will treat with BiPAP whenever he is sleeping either during the day or at night. I reinforced with him and his the need for him to follow-up with a PSG to get a formal diagnosis and treatment of his sleep apnea. Treatment for his pneumonia as listed above. Qualifiers: Chronicity: acute on chronic Qualified Code(s): J96.22 - Acute and chronic respiratory failure with hypercapnia (5) Obstructive sleep apnea: Status: Suspected Assessment and plan: See above Subjective Subjective Interval history since last seen: Patient presented to hospital with acute mental status change and fevers. He was found to have a right lower lobe pneumonia by x-ray. He was started on azithromycin and Rocephin and vancomycin and Zosyn in the emergency department. He has been continued on Rocephin and azithromycin. Blood cultures come back positive for gram-positive cocci in chains. Presumptive diagnosis is streptococcal pneumonia. Patient is on immunosuppressant drugs for his metastatic prostate cancer. This includes Lynparza. Lynparza is been associated with pneumonitis and can cause immunosuppression and I explained to the patient and his that we will get a hold this while he receives treatment for his pneumonia. I have increased his Rocephin to 2 g IV every 24 hours. Have discontinued the azithromycin as there is no evidence for an atypical organism. Clinically he is improving. He did have acute hypercapnic respiratory failure probably related to his untreated obstructive sleep apnea. He was scheduled for an appointment in the sleep lab but canceled it because his could not accompany him for his sleep study. I explained the importance to him and his to follow through with the sleep study and get his JOSE properly treated. Since being treated with BiPAP he is improved overnight and he is much more alert and oriented this afternoon. He admits he has been coughing up some purulent sputum we will try to get a specimen from him. Exam Narrative Exam Narrative: Pleasant male who is completely alert and oriented person place time and circumstance. He is able to talk in complete paragraphs with no dyspnea. Neck is short obese but no apparent JVD. Chest wall is barrel chested. Lungs are clear to auscultation anteriorly and in the upper sosa posteriorly but diminished at the bases posteriorly. Heart is regular rate and rhythm. Abdomen is obese soft and nontender. Extremities without peripheral cyanosis or edema. Left foot is status post amputation of his left second toe. This is been very slow to heal however there is no purulent discharge from the base. There is some maceration over the medial side of the left third toe. Objective Objective Clinical Data: Abnormal lab results 05/12/20 05/12/20 05/12/20 Range/Units 00:17 00:25 00:25 RBC (4.50-6.00) m/cumm Hgb (13.5-17.5) g/dL Hct (40.0-50.0) % MCV (80-95) fL MCH (27.0-33.0) pg RDW (11.8-14.1) % Absolute Lymphocytes (1.2-3.4) k/cumm D-Dimer (<500) ng/mlFEU ABG pH (7.35-7.45) ABG pCO2 (34-47) mmHg ABG HCO3 (22-28) mmol/L ABG Total CO2 (22-29) mmol/L ABG Base Excess (-3-3) mmol/L VBG pCO2 (34-47) mm/Hg VBG pO2 (28-44) mm/Hg VBG HCO3 (22-28) mmol/L VBG Total CO2 (22-29) mmol/L VBG O2 Saturation (70-80) % VBG Base Excess (-3-3) mmol/L Sodium (136-145) mmol/L Chloride (98-107) mmol/L Carbon Dioxide 34.8 H (21.0-32.0) mmol/L BUN 22 H (7-18) mg/dL Creatinine (0.70-1.30) mg/dL Glucose 138 H (74-106) mg/dL Lactate 2.0 H (0.6-1.4) mmol/L Calcium 8.4 L (8.5-10.1) mg/dL Lactate Dehydrogenase 234 H (85-227) U/L C-Reactive Protein 0.51 H (0.0-0.3) mg/dL NT-Pro-B Natriuret Pep 2671 H (<300) pg/mL Urine Protein (Negative) mg/dL 05/12/20 05/12/20 05/12/20 Range/Units 00:25 00:25 00:25 RBC 2.05 L (4.50-6.00) m/cumm Hgb 8.2 L (13.5-17.5) g/dL Hct 25.3 L (40.0-50.0) % MCV 123.4 H (80-95) fL MCH 40.0 H (27.0-33.0) pg RDW 18.4 H (11.8-14.1) % Absolute Lymphocytes 0.35 L (1.2-3.4) k/cumm D-Dimer 1126 H (<500) ng/mlFEU ABG pH (7.35-7.45) ABG pCO2 (34-47) mmHg ABG HCO3 (22-28) mmol/L ABG Total CO2 (22-29) mmol/L ABG Base Excess (-3-3) mmol/L VBG pCO2 64 H* (34-47) mm/Hg VBG pO2 (28-44) mm/Hg VBG HCO3 36 H (22-28) mmol/L VBG Total CO2 35 H (22-29) mmol/L VBG O2 Saturation 49 L (70-80) % VBG Base Excess 10.7 H (-3-3) mmol/L Sodium (136-145) mmol/L Chloride (98-107) mmol/L Carbon Dioxide (21.0-32.0) mmol/L BUN (7-18) mg/dL Creatinine (0.70-1.30) mg/dL Glucose (74-106) mg/dL Lactate (0.6-1.4) mmol/L Calcium (8.5-10.1) mg/dL Lactate Dehydrogenase (85-227) U/L C-Reactive Protein (0.0-0.3) mg/dL NT-Pro-B Natriuret Pep (<300) pg/mL Urine Protein (Negative) mg/dL 05/12/20 05/12/20 05/12/20 Range/Units 00:52 02:50 06:45 RBC (4.50-6.00) m/cumm Hgb (13.5-17.5) g/dL Hct (40.0-50.0) % MCV (80-95) fL MCH (27.0-33.0) pg RDW (11.8-14.1) % Absolute Lymphocytes (1.2-3.4) k/cumm D-Dimer (<500) ng/mlFEU ABG pH (7.35-7.45) ABG pCO2 (34-47) mmHg ABG HCO3 (22-28) mmol/L ABG Total CO2 (22-29) mmol/L ABG Base Excess (-3-3) mmol/L VBG pCO2 52 H (34-47) mm/Hg VBG pO2 78 H (28-44) mm/Hg VBG HCO3 32 H (22-28) mmol/L VBG Total CO2 31 H (22-29) mmol/L VBG O2 Saturation 96 H (70-80) % VBG Base Excess 7.0 H (-3-3) mmol/L Sodium 146 H (136-145) mmol/L Chloride 108 H (98-107) mmol/L Carbon Dioxide 33.7 H (21.0-32.0) mmol/L BUN 25 H (7-18) mg/dL Creatinine 1.53 H (0.70-1.30) mg/dL Glucose 149 H (74-106) mg/dL Lactate (0.6-1.4) mmol/L Calcium 7.9 L (8.5-10.1) mg/dL Lactate Dehydrogenase (85-227) U/L C-Reactive Protein (0.0-0.3) mg/dL NT-Pro-B Natriuret Pep (<300) pg/mL Urine Protein 30 H (Negative) mg/dL 05/12/20 Range/Units 08:20 RBC (4.50-6.00) m/cumm Hgb (13.5-17.5) g/dL Hct (40.0-50.0) % MCV (80-95) fL MCH (27.0-33.0) pg RDW (11.8-14.1) % Absolute Lymphocytes (1.2-3.4) k/cumm D-Dimer (<500) ng/mlFEU ABG pH 7.33 L (7.35-7.45) ABG pCO2 63 H* (34-47) mmHg ABG HCO3 33 H (22-28) mmol/L ABG Total CO2 32 H (22-29) mmol/L ABG Base Excess 6.8 H (-3-3) mmol/L VBG pCO2 (34-47) mm/Hg VBG pO2 (28-44) mm/Hg VBG HCO3 (22-28) mmol/L VBG Total CO2 (22-29) mmol/L VBG O2 Saturation (70-80) % VBG Base Excess (-3-3) mmol/L Sodium (136-145) mmol/L Chloride (98-107) mmol/L Carbon Dioxide (21.0-32.0) mmol/L BUN (7-18) mg/dL Creatinine (0.70-1.30) mg/dL Glucose (74-106) mg/dL Lactate (0.6-1.4) mmol/L Calcium (8.5-10.1) mg/dL Lactate Dehydrogenase (85-227) U/L C-Reactive Protein (0.0-0.3) mg/dL NT-Pro-B Natriuret Pep (<300) pg/mL Urine Protein (Negative) mg/dL Vital Signs Temperature 36.3 C L 05/12/20 12:20 Temperature Source Temporal Artery Scan 05/12/20 12:20 Pulse 76 05/12/20 12:50 Pulse 60 05/12/20 11:35 Respiratory Rate 14 05/12/20 12:50 Respiratory Effort 05/12/20 12:20 Respiratory Depth Normal 05/12/20 12:20 Respiratory Pattern Normal 05/12/20 12:20 Blood Pressure 101/46 L 05/12/20 11:35 Blood Pressure Mean 59 05/12/20 11:35 Blood Pressure Position Supine 05/12/20 12:20 Pulse Oximetry 94 L 05/12/20 14:51 Oxygen Delivery Method Nasal Cannula 05/12/20 14:51 Oxygen Flow Rate 1 05/12/20 14:51 Fraction of Inspired Oxygen (FIO2) 30 05/12/20 12:50 Pain Level 0 05/12/20 12:20 Intake & Output 05/11/20 05/12/20 05/12/20 23:59 11:59 23:59 Intake Total 1400 / 2500 1100 / 2500 Output Total 250 / 250 Balance 1400 / 2250 850 / 2250 Weight 108.862 kg Intake: IV 1400 / 2500 1100 / 2500 Output: Urine 250 / 250 Other: Urine Color Yellow Dark Shira Urine Appearance Clear Comment Not emptied at this time [facility] Laboratory Results WBC 5.54 k/cumm (4.4-10.8) 05/12/20 00:25 RBC 2.05 m/cumm (4.50-6.00) L 05/12/20 00:25 Hgb 8.2 g/dL (13.5-17.5) L 05/12/20 00:25 Hct 25.3 % (40.0-50.0) L 05/12/20 00:25 MCV 123.4 fL (80-95) H 05/12/20 00:25 MCH 40.0 pg (27.0-33.0) H 05/12/20 00:25 MCHC 32.4 g/dL (32.0-36.0) 05/12/20 00:25 RDW 18.4 % (11.8-14.1) H 05/12/20 00:25 Plt Count 196 x1000/uL (130-400) 05/12/20 00:25 MPV 9.8 fL (8.0-11.0) 05/12/20 00:25 Immature Gran % 0.2 % 05/12/20 00:25 Neutrophils % 86.8 05/12/20 00:25 Lymphocytes % 6.3 05/12/20 00:25 Monocytes % 6.1 05/12/20 00:25 Eosinophils % 0.4 05/12/20 00:25 Basophils % 0.2 05/12/20 00:25 Absolute Neutrophils 4.81 k/cumm (1.2-6.7) 05/12/20 00:25 Absolute Lymphocytes 0.35 k/cumm (1.2-3.4) L 05/12/20 00:25 Absolute Monocytes 0.34 k/cumm (0.11-0.7) 05/12/20 00:25 Absolute Eosinophils 0.02 k/cumm (0.0-0.7) 05/12/20 00:25 Absolute Basophils 0.01 k/cumm (0.0-0.2) 05/12/20 00:25 Differential Comment Agrees w/ instrument 05/12/20 00:25 RBC Morphology See below 05/12/20 00:25 Poikilocytosis 1+ 05/12/20 00:25 Anisocytosis 1+ 05/12/20 00:25 Macrocytosis 2+ 05/12/20 00:25 D-Dimer 1126 ng/mlFEU (<500) H 05/12/20 00:25 ABG Sample Site Left radial 05/12/20 08:20 ABG pH 7.33 (7.35-7.45) L 05/12/20 08:20 ABG pCO2 63 mmHg (34-47) H* 05/12/20 08:20 ABG pO2 94 mmHg (83-108) 05/12/20 08:20 ABG HCO3 33 mmol/L (22-28) H 05/12/20 08:20 ABG Total CO2 32 mmol/L (22-29) H 05/12/20 08:20 ABG O2 Saturation 98 % (94-98) 05/12/20 08:20 ABG Base Excess 6.8 mmol/L (-3-3) H 05/12/20 08:20 VBG pH 7.40 (7.35-7.45) 05/12/20 02:50 VBG pCO2 52 mm/Hg (34-47) H 05/12/20 02:50 VBG pO2 78 mm/Hg (28-44) H 05/12/20 02:50 VBG HCO3 32 mmol/L (22-28) H 05/12/20 02:50 VBG Total CO2 31 mmol/L (22-29) H 05/12/20 02:50 VBG O2 Saturation 96 % (70-80) H 05/12/20 02:50 VBG Base Excess 7.0 mmol/L (-3-3) H 05/12/20 02:50 Oxygen Liter Flow Bipap 10/5 L 05/12/20 08:20 FiO2 40 % 05/12/20 08:20 Sodium 146 mmol/L (136-145) H 05/12/20 06:45 Potassium 4.1 mmol/L (3.5-5.1) 05/12/20 06:45 Chloride 108 mmol/L (98-107) H 05/12/20 06:45 Carbon Dioxide 33.7 mmol/L (21.0-32.0) H 05/12/20 06:45 Anion Gap 4.3 mmol/L (3-11) 05/12/20 06:45 BUN 25 mg/dL (7-18) H 05/12/20 06:45 Creatinine 1.53 mg/dL (0.70-1.30) H 05/12/20 06:45 Estimated GFR/1.73 m2 44.24 (mL/min/1.73m2) 05/12/20 06:45 Glucose 149 mg/dL (74-106) H 05/12/20 06:45 Lactate 2.0 mmol/L (0.6-1.4) H 05/12/20 00:25 Calcium 7.9 mg/dL (8.5-10.1) L 05/12/20 06:45 Ferritin 219 ng/mL (26-388) 05/12/20 00:25 Total Bilirubin 0.4 mg/dL (0.2-1.0) 05/12/20 00:25 AST 31 U/L (15-37) 05/12/20 00:25 ALT 33 U/L (16-63) 05/12/20 00:25 Alkaline Phosphatase 90 U/L (46-116) 05/12/20 00:25 Ammonia 32 umol/L (11-32) 05/12/20 00:25 Lactate Dehydrogenase 234 U/L (85-227) H 05/12/20 00:25 Troponin I 0.07 ng/mL (<0.06) 05/12/20 00:25 C-Reactive Protein 0.51 mg/dL (0.0-0.3) H 05/12/20 00:25 NT-Pro-B Natriuret Pep 2671 pg/mL (<300) H 05/12/20 00:17 Total Protein 6.6 g/dL (6.4-8.2) 05/12/20 00:25 Albumin 3.4 g/dL (3.4-5.0) 05/12/20 00:25 Vitamin B12 437 pg/mL (193-986) 05/12/20 06:45 Folate 19.9 ng/mL (8.6-20.0) 05/12/20 06:45 Procalcitonin 0.1 ng/mL 05/12/20 00:25 Urine Color Yellow (Yellow) 05/12/20 00:52 Urine Clarity Clear (Clear) 05/12/20 00:52 Urine pH 7.0 (5-8) 05/12/20 00:52 Ur Specific [place] 1.020 (1.005-1.025) 05/12/20 00:52 Urine Protein 30 mg/dL (Negative) H 05/12/20 00:52 Urine Ketones Negative mg/dL (Negative) 05/12/20 00:52 Urine Blood Negative (Negative) 05/12/20 00:52 Urine Nitrite Negative (Negative) 05/12/20 00:52 Urine Bilirubin Negative (Negative) 05/12/20 00:52 Urine Urobilinogen 0.2 EU/dL (Up TO 0.2) 05/12/20 00:52 Ur Leukocyte Esterase Negative (Negative) 05/12/20 00:52 Urine RBC Negative HPF (0-2) 05/12/20 00:52 Urine WBC Negative HPF (0-5) 05/12/20 00:52 Ur Epithelial Cells Negative HPF (Negative) 05/12/20 00:52 Urine Crystals Negative HPF (Negative) 05/12/20 00:52 Urine Bacteria Negative HPF (Negative) 05/12/20 00:52 Urine Casts Negative LPF (Negative) 05/12/20 00:52 Urine Mucus Trace (Negative) 05/12/20 00:52 Ur Culture Indicated? No 05/12/20 00:52 Urine Glucose Negative mg/dL (Negative) 05/12/20 00:52 COVID-19 PCR Negative (Negative) 05/12/20 00:32 Nasopharyn COVID-19 PCR Not Applicable 05/12/20 00:32 Ref Test Perform Site [facility] 05/12/20 00:32
[2020-05-13] VITALS (37 sets, daily range): BP systolic 111–168; BP diastolic 47–89; PULSE 62–104; RESP 9–26; TEMP 36.4–36.7; O2SAT 73–99
[2020-05-13] MEDS: cefTRIAXone 2 GM/50 ML BAG IVPB (05:27)
[2020-05-13] MEDS: ACETAMINOPHEN 1,000 MG/100 ML BTL 400 MG IVPB (06:10)
[2020-05-13] MEDS: Lactated Ringers 1,000 ML 75 ML IV (06:30)
--- NOTE | 2020-05-13 07:16 | W.PODCONSULT ---
Date of service: 05/13/20 Time of Service: 07:16 History of Present Illness History of Present Illness Chief Complaint: Wound dehiscence left second toe amp Narrative: Manjit is a 79-year-old white male who underwent a amputation of the left second toe for chronic wound with osteomyelitis. His immediate postoperative course was uneventful. His healing is complicated by venous stasis disease and peripheral arterial disease. Sutures were kept in the incision for approximately 3 weeks and slowly removed over a week. Unfortunately in spite of this the wound was soft but did appear to be healing. Did not have any signs or symptoms of infection. He has been washing the wound at home with soap and water and keeping it lightly covered but unfortunately he is developed pneumonia was admitted and I am now seeing him in the hospital ICU. He is awake, he is alert and he denies any pain in his left foot. 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) Physeal fracture of phalanx of toe of left foot Pressure ulcer Buttocks TBI (traumatic brain injury) (Acute) Family History Mother Lung cancer Social History Smoking/Tobacco Use Status: Never Alcohol Intake: current Alcohol Intake frequency: a few times a month Alcohol type: hard liquor Drug use: Never Substance use type: does not use Household members: spouse Number of Children: 2 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 His legs and feet are warm to the touch. Manual arterial palpation is difficult due to edema and coarsening of his tissue but they are audible by Doppler. Capillary return to all intact digits is on the 5 seconds. A partially healed wound is noted over the distal second metatarsal head of the left foot site of amputation. There is a little maceration along the lateral wall of the great toe where it sits against the distal aspect of the foot. There is no erythema or cellulitis anywhere on the left foot at this time. With a sterile Q-tip the second digit amputation site is gently probed and it is loose and I can actually probe down about 6 mm and I was able to easily separate the skin edges from medial to lateral with this Q-tip. A little brownish serous fluid was appreciated within the wound and this was cultured. Radiographs were obtained in the emergency room upon admission and no destruction of the second metatarsal head is noted no radiologic evidence of osteomyelitis to the second metatarsal although this is certainly a possibility. Impression: Wound dehiscence second digit amputation site left foot likely a combination of peripheral arterial disease, venous stasis disease low suspicion for infection as basis for dehiscence. Plan: Wound care will be initiated consisting of wet-to-dry every 12 to clean up the wound and get a better sense of the extent of the dehiscence and the tissues involved. Her circulatory status is clearly a impediment in healing. We will need to focus on reducing his peripheral edema to maximize his healing potential and may need to consider vascular referral if he fails to make positive gains. His current antibiotic regimen should cover whatever is growing in the foot and we will coordinate that pending culture results. Results Last Vital Signs Temp 36.7 C 05/13/20 03:40 Pulse 79 05/13/20 04:01 Resp 12 05/13/20 04:01 BP 142/61 H 05/13/20 04:01 Pulse Ox 99 05/13/20 04:01 Labs Result diagrams: 05/12/20 00:25 05/12/20 06:45 Labs: Laboratory Results - last 24 hr 05/12/20 05/12/20 05/12/20 00:32 01:53 06:45 ABG Sample Site Cancelled ABG pH Cancelled ABG pCO2 Cancelled ABG pO2 Cancelled ABG HCO3 Cancelled ABG Total CO2 Cancelled ABG O2 Saturation Cancelled ABG Base Excess Cancelled Oxygen Liter Flow Cancelled FiO2 Cancelled Sodium Potassium Chloride Carbon Dioxide Anion Gap BUN Creatinine Estimated GFR/1.73 m2 Glucose Calcium Vitamin B12 437 Folate COVID-19 PCR Negative Nasopharyn COVID-19 PCR Not Applicable Ref Test Perform Site [facility] 05/12/20 05/12/20 05/12/20 06:45 06:45 08:20 ABG Sample Site Left radial ABG pH 7.33 L ABG pCO2 63 H* ABG pO2 94 ABG HCO3 33 H ABG Total CO2 32 H ABG O2 Saturation 98 ABG Base Excess 6.8 H Oxygen Liter Flow Bipap 10/5 FiO2 40 Sodium 146 H Potassium 4.1 Chloride 108 H Carbon Dioxide 33.7 H Anion Gap 4.3 BUN 25 H Creatinine 1.53 H Estimated GFR/1.73 m2 44.24 Glucose 149 H Calcium 7.9 L Vitamin B12 Folate 19.9 COVID-19 PCR Nasopharyn COVID-19 PCR Ref Test Perform Site
[2020-05-13 07:48] LABS: Absolute Eosinophil Count 0.02 k/cumm (0.0-0.7); Eosinophils % 0.3; HCT 21.9 % (40.0-50.0); Mean Corp. HGB Concentration 31.1 g/dL (32.0-36.0); Mean Corpuscular Hemoglobin 38.2 pg (27.0-33.0); Mean Platelet Volume 10.4 fL (8.0-11.0); Platelet Count 155 x1000/uL (130-400); RBC 1.78 m/cumm (4.50-6.00); RBC Distribution Width 18.7 % (11.8-14.1); White Blood Cell Count 6.83 k/cumm (4.4-10.8)
[2020-05-13 08:09] LABS: ALT 41 U/L (16-63); AST 33 U/L (15-37); Albumin 2.6 g/dL (3.4-5.0); Alkaline Phosphatase 65 U/L (46-116); Anion Gap 2.3 mmol/L (3-11); BUN 23 mg/dL (7-18); Bilirubin, Total 0.2 mg/dL (0.2-1.0); CO2 33.7 mmol/L (21.0-32.0); Calcium 7.5 mg/dL (8.5-10.1); Chloride 106 mmol/L (98-107); Estimated GFR 58.56 (mL/min/1.73m2); Glucose 124 mg/dL (74-106); Potassium 4.1 mmol/L (3.5-5.1); Sodium 142 mmol/L (136-145); Total Protein 5.8 g/dL (6.4-8.2)
[2020-05-13] MEDS: Enoxaparin 40 MG/0.4 ML SYR SC (08:28)
[2020-05-13 08:32] LABS: HGB 6.8 g/dL (13.5-17.5)
[2020-05-13 08:33] LABS: Absolute Lymphocyte Count 0.48 k/cumm (1.2-3.4); Absolute Neutrophil Count 6.15 k/cumm (1.2-6.7); Atypical Lymphocytes % 1
[2020-05-13 08:34] LABS: Diff Comment Manual Differential
[2020-05-13 08:36] LABS: Anisocytosis 1+; Hypochromasia 1+; Macrocytosis 2+
[2020-05-13 08:37] LABS: Polychromasia Present
[2020-05-13 08:38] LABS: Poikilocytes 1+
--- NOTE | 2020-05-13 08:57 | PGE_ITS ---
Date of Service Date of service: 05/13/20 Time of Service: 08:57 Assessment and Plan Assessment and plan (1) Sepsis: Status: Acute Assessment and plan: Right lower lobe pneumonia. Multiple blood cultures positive for gram-positive cocci. Patient has been responding to current treatment with Rocephin 2 g IV daily. Continue the same. Use nebulizers on a as needed basis. He is hemodynamically stable and not requiring corticosteroids at this point.. Qualifiers: Sepsis type: Streptococcus, unspecified Sepsis acute organ dysfunction status: with acute organ dysfunction Acute respiratory failure type: with hypercapnia (2) Pneumonia: Status: Acute Assessment and plan: As above Qualifiers: Pneumonia type: due to Pneumococcus Laterality: right Lung location: lower lobe of lung Qualified Code(s): J13 - Pneumonia due to Streptococcus pneumoniae (3) Chronic wound of extremity: Status: Acute Assessment and plan: We will asked Dr. Briceno to follow-up regarding his left second toe amputation (4) Hypercapnic respiratory failure: Status: Acute Assessment and plan: Combination of pneumonia and probable underlying obstructive sleep apnea. Will treat with BiPAP whenever he is sleeping either during the day or at night. I reinforced with him and his the need for him to follow-up with a PSG to get a formal diagnosis and treatment of his sleep apnea. Treatment for his pneumonia as listed above. Qualifiers: Chronicity: acute on chronic Qualified Code(s): J96.22 - Acute and chronic respiratory failure with hypercapnia (5) Obstructive sleep apnea: Status: Suspected Assessment and plan: See above (6) Anemia: Status: Chronic Assessment and plan: Ferritin folate and B12 levels were checked on admission all within normal limits. We will repeat a stool for occult blood just to be sure there is no GI bleeding. We will start him on Protonix for GI protection. I have held his Lovenox for now. We will type and screen him and repeat his H&H to confirm the acute drop in his hemoglobin. Qualifiers: Anemia type: unspecified type Qualified Code(s): D64.9 - Anemia, unspecified Subjective Subjective Interval history since last seen: Patient is feeling better today denies any shortness of breath. Lab reported his hemoglobin is down to 6.8 g. He has had no bowel movement since admission and denies a history of melena or hematochezia. I am not sure complete his history of seizures he is a poor historian. He has a chronic anemia and his hemoglobin is usually around 8-8.5 g. He is not currently on a PPI Mari put him on Protonix. Some of the acute drop overnight and his hemoglobin may have been delusional. I did a digital rectal exam and got light brown stool that was negative for occult blood. For now I will repeat his hemoglobin hematocrit and get a type and screen but not transfusion unless his hemoglobin is truly in the 6 g range. 2 sets of blood cultures are now coming back positive for gram-positive cocci. He is currently on Rocephin 2 g IV daily and seems to be responding to this and therefore recommend broaden his antibiotic coverage at the present time. His procalcitonin level yesterday was 0.1 with respect to his hypercarbic respiratory failure he is doing much better with use of the BiPAP when he sleeping. I reinforced with him and his yesterday his need to follow-up with a PSG and get a formal diagnosis of JOSE so he can get qualified for CPAP or BiPAP. Exam Narrative Exam Narrative: Morbidly obese male sitting up in his chair in no distress. Chest is barrel chested. Lungs are clear to auscultation anteriorly posteriorly has diminished breath sounds at the bases without rhonchi or wheezing. Heart is regular rate and rhythm no appreciable murmur rub or gallop. Abdomen is obese soft and nontender. Digital rectal exam reveals external hemorrhoid normal sphincter tone light brown stool that was negative for occult blood. Skin exam he has a superficial coccygeal pressure ulceration there is no purulent discharge. Dressing is being applied by nursing staff to protect the skin. Objective Objective Clinical Data: Abnormal lab results 05/13/20 05/13/20 Range/Units 06:30 06:30 RBC 1.78 L (4.50-6.00) m/cumm Hgb 6.8 L* (13.5-17.5) g/dL Hct 21.9 L (40.0-50.0) % MCV 123.0 H (80-95) fL MCH 38.2 H (27.0-33.0) pg MCHC 31.1 L (32.0-36.0) g/dL RDW 18.7 H (11.8-14.1) % Absolute Lymphocytes 0.48 L (1.2-3.4) k/cumm Carbon Dioxide 33.7 H (21.0-32.0) mmol/L Anion Gap 2.3 L (3-11) mmol/L BUN 23 H (7-18) mg/dL Glucose 124 H (74-106) mg/dL Calcium 7.5 L (8.5-10.1) mg/dL Total Protein 5.8 L (6.4-8.2) g/dL Albumin 2.6 L (3.4-5.0) g/dL Vital Signs Temperature 36.7 C 05/13/20 03:40 Temperature Source Tympanic 05/13/20 03:40 Pulse 79 05/13/20 04:01 Pulse 78 05/13/20 04:01 Respiratory Rate 12 05/13/20 04:01 Respiratory Effort 05/13/20 03:40 Respiratory Depth Normal 05/13/20 03:40 Respiratory Pattern Normal 05/13/20 03:40 Blood Pressure 142/61 H 05/13/20 04:01 Blood Pressure Mean 80 05/13/20 04:01 Blood Pressure Position Supine 05/13/20 03:40 Pulse Oximetry 99 05/13/20 04:01 Oxygen Delivery Method Nasal Cannula 05/13/20 03:40 Oxygen Flow Rate 1 05/13/20 03:40 Fraction of Inspired Oxygen (FIO2) 30 05/13/20 03:04 Pain Level 0 05/13/20 03:40 Intake & Output 05/12/20 05/12/20 05/13/20 11:59 23:59 11:59 Intake Total 1400 / 4631.667 3231.667 / 4631.667 844.583 / 844.583 Output Total 575 / 575 500 / 500 Balance 1400 / 4056.667 2656.667 / 4056.667 344.583 / 344.583 Weight 108.862 kg Intake: IV 1400 / 3131.667 1731.667 / 3131.667 644.583 / 644.583 Oral 1500 / 1500 200 / 200 Output: Urine 575 / 575 500 / 500 Other: Urine Color Yellow Straw Light Shira Urine Appearance Clear Sediment Clear Comment Not emptied at this time lomeli lomeli Laboratory Results WBC 6.83 k/cumm (4.4-10.8) 05/13/20 06:30 RBC 1.78 m/cumm (4.50-6.00) L 05/13/20 06:30 Hgb 6.8 g/dL (13.5-17.5) L* 05/13/20 06:30 Hct 21.9 % (40.0-50.0) L 05/13/20 06:30 MCV 123.0 fL (80-95) H 05/13/20 06:30 MCH 38.2 pg (27.0-33.0) H 05/13/20 06:30 MCHC 31.1 g/dL (32.0-36.0) L 05/13/20 06:30 RDW 18.7 % (11.8-14.1) H 05/13/20 06:30 Plt Count 155 x1000/uL (130-400) 05/13/20 06:30 MPV 10.4 fL (8.0-11.0) 05/13/20 06:30 Immature Gran % 0.0 % 05/13/20 06:30 Neutrophils % 90.0 05/13/20 06:30 Lymphocytes % 6.0 05/13/20 06:30 Atypical Lymphs % 1 05/13/20 06:30 Monocytes % 3.0 05/13/20 06:30 Eosinophils % 0.3 05/13/20 06:30 Basophils % 0.0 05/13/20 06:30 Absolute Neutrophils 6.15 k/cumm (1.2-6.7) 05/13/20 06:30 Absolute Lymphocytes 0.48 k/cumm (1.2-3.4) L 05/13/20 06:30 Absolute Monocytes 0.20 k/cumm (0.11-0.7) 05/13/20 06:30 Absolute Eosinophils 0.02 k/cumm (0.0-0.7) 05/13/20 06:30 Absolute Basophils 0.00 k/cumm (0.0-0.2) 05/13/20 06:30 Differential Comment Manual differential 05/13/20 06:30 RBC Morphology See below 05/13/20 06:30 Polychromasia Present 05/13/20 06:30 Hypochromasia 1+ 05/13/20 06:30 Poikilocytosis 1+ 05/13/20 06:30 Anisocytosis 1+ 05/13/20 06:30 Macrocytosis 2+ 05/13/20 06:30 D-Dimer 1126 ng/mlFEU (<500) H 05/12/20 00:25 ABG Sample Site Left radial 05/12/20 08:20 ABG pH 7.33 (7.35-7.45) L 05/12/20 08:20 ABG pCO2 63 mmHg (34-47) H* 05/12/20 08:20 ABG pO2 94 mmHg (83-108) 05/12/20 08:20 ABG HCO3 33 mmol/L (22-28) H 05/12/20 08:20 ABG Total CO2 32 mmol/L (22-29) H 05/12/20 08:20 ABG O2 Saturation 98 % (94-98) 05/12/20 08:20 ABG Base Excess 6.8 mmol/L (-3-3) H 05/12/20 08:20 VBG pH 7.40 (7.35-7.45) 05/12/20 02:50 VBG pCO2 52 mm/Hg (34-47) H 05/12/20 02:50 VBG pO2 78 mm/Hg (28-44) H 05/12/20 02:50 VBG HCO3 32 mmol/L (22-28) H 05/12/20 02:50 VBG Total CO2 31 mmol/L (22-29) H 05/12/20 02:50 VBG O2 Saturation 96 % (70-80) H 05/12/20 02:50 VBG Base Excess 7.0 mmol/L (-3-3) H 05/12/20 02:50 Oxygen Liter Flow Bipap 10/5 L 05/12/20 08:20 FiO2 40 % 05/12/20 08:20 Sodium 142 mmol/L (136-145) 05/13/20 06:30 Potassium 4.1 mmol/L (3.5-5.1) 05/13/20 06:30 Chloride 106 mmol/L (98-107) 05/13/20 06:30 Carbon Dioxide 33.7 mmol/L (21.0-32.0) H 05/13/20 06:30 Anion Gap 2.3 mmol/L (3-11) L 05/13/20 06:30 BUN 23 mg/dL (7-18) H 05/13/20 06:30 Creatinine 1.20 mg/dL (0.70-1.30) 05/13/20 06:30 Estimated GFR/1.73 m2 58.56 (mL/min/1.73m2) 05/13/20 06:30 Glucose 124 mg/dL (74-106) H 05/13/20 06:30 Lactate 2.0 mmol/L (0.6-1.4) H 05/12/20 00:25 Calcium 7.5 mg/dL (8.5-10.1) L 05/13/20 06:30 Ferritin 219 ng/mL (26-388) 05/12/20 00:25 Total Bilirubin 0.2 mg/dL (0.2-1.0) 05/13/20 06:30 AST 33 U/L (15-37) 05/13/20 06:30 ALT 41 U/L (16-63) 05/13/20 06:30 Alkaline Phosphatase 65 U/L (46-116) 05/13/20 06:30 Ammonia 32 umol/L (11-32) 05/12/20 00:25 Lactate Dehydrogenase 234 U/L (85-227) H 05/12/20 00:25 Troponin I 0.07 ng/mL (<0.06) 05/12/20 00:25 C-Reactive Protein 0.51 mg/dL (0.0-0.3) H 05/12/20 00:25 NT-Pro-B Natriuret Pep 2671 pg/mL (<300) H 05/12/20 00:17 Total Protein 5.8 g/dL (6.4-8.2) L 05/13/20 06:30 Albumin 2.6 g/dL (3.4-5.0) L 05/13/20 06:30 Vitamin B12 437 pg/mL (193-986) 05/12/20 06:45 Folate 19.9 ng/mL (8.6-20.0) 05/12/20 06:45 Procalcitonin 0.1 ng/mL 05/12/20 00:25 Urine Color Yellow (Yellow) 05/12/20 00:52 Urine Clarity Clear (Clear) 05/12/20 00:52 Urine pH 7.0 (5-8) 05/12/20 00:52 Ur Specific [place] 1.020 (1.005-1.025) 05/12/20 00:52 Urine Protein 30 mg/dL (Negative) H 05/12/20 00:52 Urine Ketones Negative mg/dL (Negative) 05/12/20 00:52 Urine Blood Negative (Negative) 05/12/20 00:52 Urine Nitrite Negative (Negative) 05/12/20 00:52 Urine Bilirubin Negative (Negative) 05/12/20 00:52 Urine Urobilinogen 0.2 EU/dL (Up TO 0.2) 05/12/20 00:52 Ur Leukocyte Esterase Negative (Negative) 05/12/20 00:52 Urine RBC Negative HPF (0-2) 05/12/20 00:52 Urine WBC Negative HPF (0-5) 05/12/20 00:52 Ur Epithelial Cells Negative HPF (Negative) 05/12/20 00:52 Urine Crystals Negative HPF (Negative) 05/12/20 00:52 Urine Bacteria Negative HPF (Negative) 05/12/20 00:52 Urine Casts Negative LPF (Negative) 05/12/20 00:52 Urine Mucus Trace (Negative) 05/12/20 00:52 Ur Culture Indicated? No 05/12/20 00:52 Urine Glucose Negative mg/dL (Negative) 05/12/20 00:52 COVID-19 PCR Negative (Negative) 05/12/20 00:32 Nasopharyn COVID-19 PCR Not Applicable 05/12/20 00:32 Ref Test Perform Site [facility] lab 05/12/20 00:32
--- NOTE | 2020-05-13 09:02 | PDOC.CMPRO ---
- If Service Date Differs Date of service: 05/13/20 Time of Service: 09:02 Care Management Progress Note S/O:Manjit remains in the ICU he is being treated with IV abx for group b strep. Length of treatment to be determined. A:Jesus is a 79 year old male admitted with pneumonia with sepsis, positive blood cultures group G strep. P:Lester will likely return home, possibly with home health services, when medically cleared. He will transport via private vehicle with his and follow up with his PCP. CM will continue to support patient, family and discharge planning needs.
[2020-05-13 09:36] LABS: Iron 36 ug/dL (65-175)
[2020-05-13 09:41] LABS: BE (Venous) 9.1 mmol/L (-3-3); HCO3 (Venous) 34 mmol/L (22-28); O2 Sat (Venous) 60 % (70-80); TCO2 (Venous) 34 mmol/L (22-29); pCO2 (Venous) 59 mm/Hg (34-47); pH (Venous) 7.37 (7.35-7.45); pO2 (Venous) 35 mm/Hg (28-44)
[2020-05-13] MEDS: Bisacodyl 10 MG SUPP PR (09:46)
[2020-05-13] MEDS: Pantoprazole 40 MG VIAL IVP (09:47)
[2020-05-13] MEDS: Normal Saline Flush 10 ML SYR (09:47)
[2020-05-13] MEDS: Gabapentin 300 MG CAP 600 MG PO ×3 (09:47→20:29)
[2020-05-13 09:54] LABS: HGB 6.8 g/dL (13.5-17.5)
[2020-05-13 09:55] LABS: INR 1.2 (0.9-1.1); PTT Activated 32.3 sec (21.0-31.4); Prothrombin Time 11.8 sec (9.3-11.0)
[2020-05-13] MEDS: Senna TAB 1 TAB PO (10:17)
[2020-05-13] MEDS: Polyethylene Glycol 3350 17 GM PACKET PO (10:17)
[2020-05-13] MEDS: CLINDAMYCIN 900 MG/50 ML BAG 50 MG IVPB ×2 (12:00→20:30)
[2020-05-13] MEDS: Acetaminophen 325 MG TAB 650 MG PO (12:48)
[2020-05-13] MEDS: diphenhydrAMINE 25 MG CAP PO (12:48)
[2020-05-14] VITALS (29 sets, daily range): BP systolic 124–169; BP diastolic 53–74; PULSE 63–92; RESP 10–22; TEMP 36.4–36.7; O2SAT 72–99
[2020-05-14] MEDS: Normal Saline 500 ML 30 ML IV ×2 (01:14→22:11)
[2020-05-14] MEDS: CLINDAMYCIN 900 MG/50 ML BAG 50 MG IVPB ×3 (04:00→21:06)
--- NOTE | 2020-05-14 05:00 | RT.EKG_ITS ---
APPROVED REPORT Exam: Resting ECG Patient Location: I HR:80 bpm ECG Measurements Heart Rate 80 AXIS IL 140 P 34 QRSd 82 QRS 56 QT 376 T 45 QTc 435 <Conclusion> Gender not entered, assumed to be male for purpose of ECG interpretation Sinus rhythm...normal P axis, V-rate 60- 99 Nonspecific T abnrm, anterolateral leads...T <-0.10mV, I aVL V2-V6
--- NOTE | 2020-05-14 05:11 | DI.RAD_ITS ---
EXAM: XR PORTABLE CHEST AP CLINICAL HISTORY: increased need for 02 TECHNIQUE: COMPARISON: CR,XR XR PORTABLE CHEST AP from 05/12/2020 FINDINGS: Portable AP chest at 0510 hours. Cardiomegaly noted, possible pleural effusions. Possible bilateral pulmonary infiltrates, no gross interval change from May 12. Additional evaluation with CT suggested for improved characterization of of pulmonary and pleural fin dings. IMPRESSION:
--- NOTE | 2020-05-14 05:33 | DI.VRAD_ITS ---
PROCEDURE INFORMATION: Exam: XR Chest, 1 View Exam date and time: 05/14/2020 5:12 AM Age: 79 years old Clinical indication: Other: Increased need for o2 TECHNIQUE: Imaging protocol: XR of the chest Views: 1 view. COMPARISON: CR XR PORTABLE CHEST AP 05/12/2020 12:26 AM FINDINGS: Lungs: Patchy bilateral pulmonary opacities. Findings may reflect a nonspecific infectious process and clinical correlation is recommended. Triangular opacity in the right perihilar region may reflect an anterior mediastinal structure such as an enlarged thymus, or may reflect atypical pattern atelectasis on the right. CT imaging would be recommended for further evaluation. The appearance is new when compared with the prior, suggesting atelectasis. Pleural space: Unremarkable. No pleural effusion. No pneumothorax. Heart/Mediastinum: Unremarkable. No cardiomegaly. Bones/joints: Unremarkable. IMPRESSION: Patchy bilateral pulmonary opacities. Findings may reflect a nonspecific infectious process and clinical correlation is recommended. Equivocal atelectasis as above Dictated and Authenticated by: Marcial Sanchez MD. Ordering:DIANA Barone MD
--- NOTE | 2020-05-14 05:47 | W.PM.PROGNOT ---
Date of Service Date of service: 05/14/20 Time of Service: 05:47 Assessment and Plan Assessment and plan (1) Hypercapnic respiratory failure: Status: Acute Assessment and plan: Multifactorial respiratory insufficiency, unclear which, or all, contributing. The rather sudden onset of current findings suggests possibility of flash pulmonary edema, PE or aspiration. Will give Lasix 40 IVP, check d-Dimer (will likely be positive due to other issues), check troponin and ABG. RT has adjusted pressures upward and increased O2. Would consider hold or decrease opiates and either LE U/S or CTA, and in any case resume DVT prophylaxis unless documented bleed. Qualifiers: Chronicity: acute on chronic Qualified Code(s): J96.22 - Acute and chronic respiratory failure with hypercapnia Subjective Subjective Interval history since last seen: Called for change mental status and decreasing O2 sats. Case reviewed. In with pneumonia, Strep bacteremia in setting of chronic respiratory insufficiency and CHF, on PCN/Clinda and BiPAP. Staff noted rather sudden obtundation with sats dropping to 70s. On my initial exam sats low 80 with RR 10-12. Responding to sternal rub with eye opening and one word responses. Lungs grossly clear, bronchial on left. Heart RRR, extremities 2+ tense edema calves bilateral. EKG NSR with diffuse NSTWCs. CXR shows worsening opacities especially RLL, prob CHF versus progressive consolidation. During visit sats spontaneously increased to 90s, then variable low 80s-mid-90s. Improvement seems to correlate roughly with level of stimulation. Objective Objective Clinical Data: Abnormal lab results 05/13/20 05/13/20 05/13/20 Range/Units 06:30 06:30 06:30 RBC 1.78 L (4.50-6.00) m/cumm Hgb 6.8 L* (13.5-17.5) g/dL Hct 21.9 L (40.0-50.0) % MCV 123.0 H (80-95) fL MCH 38.2 H (27.0-33.0) pg MCHC 31.1 L (32.0-36.0) g/dL RDW 18.7 H (11.8-14.1) % Absolute Lymphocytes 0.48 L (1.2-3.4) k/cumm PT (9.3-11.0) sec INR (0.9-1.1) APTT (21.0-31.4) sec VBG pCO2 (34-47) mm/Hg VBG HCO3 (22-28) mmol/L VBG Total CO2 (22-29) mmol/L VBG O2 Saturation (70-80) % VBG Base Excess (-3-3) mmol/L Carbon Dioxide 33.7 H (21.0-32.0) mmol/L Anion Gap 2.3 L (3-11) mmol/L BUN 23 H (7-18) mg/dL Glucose 124 H (74-106) mg/dL Calcium 7.5 L (8.5-10.1) mg/dL Iron 36 L (65-175) ug/dL Total Protein 5.8 L (6.4-8.2) g/dL Albumin 2.6 L (3.4-5.0) g/dL Crossmatch 05/13/20 05/13/20 05/13/20 Range/Units 09:35 09:35 09:35 RBC (4.50-6.00) m/cumm Hgb 6.8 L* (13.5-17.5) g/dL Hct 22.0 L (40.0-50.0) % MCV (80-95) fL MCH (27.0-33.0) pg MCHC (32.0-36.0) g/dL RDW (11.8-14.1) % Absolute Lymphocytes (1.2-3.4) k/cumm PT (9.3-11.0) sec INR (0.9-1.1) APTT (21.0-31.4) sec VBG pCO2 59 H (34-47) mm/Hg VBG HCO3 34 H (22-28) mmol/L VBG Total CO2 34 H (22-29) mmol/L VBG O2 Saturation 60 L (70-80) % VBG Base Excess 9.1 H (-3-3) mmol/L Carbon Dioxide (21.0-32.0) mmol/L Anion Gap (3-11) mmol/L BUN (7-18) mg/dL Glucose (74-106) mg/dL Calcium (8.5-10.1) mg/dL Iron (65-175) ug/dL Total Protein (6.4-8.2) g/dL Albumin (3.4-5.0) g/dL Crossmatch See Detail 05/13/20 Range/Units 09:35 RBC (4.50-6.00) m/cumm Hgb (13.5-17.5) g/dL Hct (40.0-50.0) % MCV (80-95) fL MCH (27.0-33.0) pg MCHC (32.0-36.0) g/dL RDW (11.8-14.1) % Absolute Lymphocytes (1.2-3.4) k/cumm PT 11.8 H (9.3-11.0) sec INR 1.2 H (0.9-1.1) APTT 32.3 H (21.0-31.4) sec VBG pCO2 (34-47) mm/Hg VBG HCO3 (22-28) mmol/L VBG Total CO2 (22-29) mmol/L VBG O2 Saturation (70-80) % VBG Base Excess (-3-3) mmol/L Carbon Dioxide (21.0-32.0) mmol/L Anion Gap (3-11) mmol/L BUN (7-18) mg/dL Glucose (74-106) mg/dL Calcium (8.5-10.1) mg/dL Iron (65-175) ug/dL Total Protein (6.4-8.2) g/dL Albumin (3.4-5.0) g/dL Crossmatch Vital Signs Temperature 36.5 C 05/13/20 20:00 Temperature Source Temporal Artery Scan 05/13/20 20:00 Pulse 73 05/14/20 00:01 Pulse 75 05/14/20 00:01 Respiratory Rate 10 L 05/14/20 00:01 Respiratory Effort 05/14/20 04:00 Respiratory Depth Shallow 05/14/20 04:00 Respiratory Pattern Normal 05/13/20 16:00 Blood Pressure 128/57 L 05/14/20 00:01 Blood Pressure Mean 73 05/14/20 00:01 Blood Pressure Position Supine 05/13/20 20:00 Pulse Oximetry 98 05/14/20 00:01 Oxygen Delivery Method Bi-pap 05/13/20 20:00 Oxygen Flow Rate 3 05/13/20 20:00 Fraction of Inspired Oxygen (FIO2) 30 05/13/20 08:56 Pain Level 0 05/13/20 20:00 Intake & Output 05/13/20 05/13/20 05/14/20 11:59 23:59 11:59 Intake Total 1300.833 / 1856.333 555.5 / 1856.333 100 / 100 Output Total 500 / 500 Balance 800.833 / 1356.333 555.5 / 1356.333 100 / 100 Intake: IV 920.833 / 1168.333 247.5 / 1168.333 100 / 100 Oral 380 / 380 Blood Product 288 / 288 Rbc Leuko Reduced Unit 288 / 288 [id number] Other Rbc Leuko Reduced Unit [id number] Output: Urine 500 / 500 Other: Urine Color Light Shira Urine Appearance Clear Cloudy Comment lomeli pt has indwelling lomeli cath Laboratory Results WBC 6.83 k/cumm (4.4-10.8) 05/13/20 06:30 RBC 1.78 m/cumm (4.50-6.00) L 05/13/20 06:30 Hgb 6.8 g/dL (13.5-17.5) L* 05/13/20 09:35 Hct 22.0 % (40.0-50.0) L 05/13/20 09:35 MCV 123.0 fL (80-95) H 05/13/20 06:30 MCH 38.2 pg (27.0-33.0) H 05/13/20 06:30 MCHC 31.1 g/dL (32.0-36.0) L 05/13/20 06:30 RDW 18.7 % (11.8-14.1) H 05/13/20 06:30 Plt Count 155 x1000/uL (130-400) 05/13/20 06:30 MPV 10.4 fL (8.0-11.0) 05/13/20 06:30 Immature Gran % 0.0 % 05/13/20 06:30 Neutrophils % 90.0 05/13/20 06:30 Lymphocytes % 6.0 05/13/20 06:30 Atypical Lymphs % 1 05/13/20 06:30 Monocytes % 3.0 05/13/20 06:30 Eosinophils % 0.3 05/13/20 06:30 Basophils % 0.0 05/13/20 06:30 Absolute Neutrophils 6.15 k/cumm (1.2-6.7) 05/13/20 06:30 Absolute Lymphocytes 0.48 k/cumm (1.2-3.4) L 05/13/20 06:30 Absolute Monocytes 0.20 k/cumm (0.11-0.7) 05/13/20 06:30 Absolute Eosinophils 0.02 k/cumm (0.0-0.7) 05/13/20 06:30 Absolute Basophils 0.00 k/cumm (0.0-0.2) 05/13/20 06:30 Differential Comment Manual differential 05/13/20 06:30 RBC Morphology See below 05/13/20 06:30 Polychromasia Present 05/13/20 06:30 Hypochromasia 1+ 05/13/20 06:30 Poikilocytosis 1+ 05/13/20 06:30 Anisocytosis 1+ 05/13/20 06:30 Macrocytosis 2+ 05/13/20 06:30 PT 11.8 sec (9.3-11.0) H 05/13/20 09:35 INR 1.2 (0.9-1.1) H 05/13/20 09:35 APTT 32.3 sec (21.0-31.4) H 05/13/20 09:35 D-Dimer 1126 ng/mlFEU (<500) H 05/12/20 00:25 ABG Sample Site Left radial 05/12/20 08:20 ABG pH 7.33 (7.35-7.45) L 05/12/20 08:20 ABG pCO2 63 mmHg (34-47) H* 05/12/20 08:20 ABG pO2 94 mmHg (83-108) 05/12/20 08:20 ABG HCO3 33 mmol/L (22-28) H 05/12/20 08:20 ABG Total CO2 32 mmol/L (22-29) H 05/12/20 08:20 ABG O2 Saturation 98 % (94-98) 05/12/20 08:20 ABG Base Excess 6.8 mmol/L (-3-3) H 05/12/20 08:20 VBG pH 7.37 (7.35-7.45) 05/13/20 09:35 VBG pCO2 59 mm/Hg (34-47) H 05/13/20 09:35 VBG pO2 35 mm/Hg (28-44) 05/13/20 09:35 VBG HCO3 34 mmol/L (22-28) H 05/13/20 09:35 VBG Total CO2 34 mmol/L (22-29) H 05/13/20 09:35 VBG O2 Saturation 60 % (70-80) L 05/13/20 09:35 VBG Base Excess 9.1 mmol/L (-3-3) H 05/13/20 09:35 Oxygen Liter Flow Bipap 10/5 L 05/12/20 08:20 FiO2 40 % 05/12/20 08:20 Sodium 142 mmol/L (136-145) 05/13/20 06:30 Potassium 4.1 mmol/L (3.5-5.1) 05/13/20 06:30 Chloride 106 mmol/L (98-107) 05/13/20 06:30 Carbon Dioxide 33.7 mmol/L (21.0-32.0) H 05/13/20 06:30 Anion Gap 2.3 mmol/L (3-11) L 05/13/20 06:30 BUN 23 mg/dL (7-18) H 05/13/20 06:30 Creatinine 1.20 mg/dL (0.70-1.30) 05/13/20 06:30 Estimated GFR/1.73 m2 58.56 (mL/min/1.73m2) 05/13/20 06:30 Glucose 124 mg/dL (74-106) H 05/13/20 06:30 Lactate 2.0 mmol/L (0.6-1.4) H 05/12/20 00:25 Calcium 7.5 mg/dL (8.5-10.1) L 05/13/20 06:30 Iron 36 ug/dL (65-175) L 05/13/20 06:30 Ferritin 219 ng/mL (26-388) 05/12/20 00:25 Total Bilirubin 0.2 mg/dL (0.2-1.0) 05/13/20 06:30 AST 33 U/L (15-37) 05/13/20 06:30 ALT 41 U/L (16-63) 05/13/20 06:30 Alkaline Phosphatase 65 U/L (46-116) 05/13/20 06:30 Ammonia 32 umol/L (11-32) 05/12/20 00:25 Lactate Dehydrogenase 234 U/L (85-227) H 05/12/20 00:25 Troponin I 0.07 ng/mL (<0.06) 05/12/20 00:25 C-Reactive Protein 0.51 mg/dL (0.0-0.3) H 05/12/20 00:25 NT-Pro-B Natriuret Pep 2671 pg/mL (<300) H 05/12/20 00:17 Total Protein 5.8 g/dL (6.4-8.2) L 05/13/20 06:30 Albumin 2.6 g/dL (3.4-5.0) L 05/13/20 06:30 Vitamin B12 437 pg/mL (193-986) 05/12/20 06:45 Folate 19.9 ng/mL (8.6-20.0) 05/12/20 06:45 Procalcitonin 0.1 ng/mL 05/12/20 00:25 Urine Color Yellow (Yellow) 05/12/20 00:52 Urine Clarity Clear (Clear) 05/12/20 00:52 Urine pH 7.0 (5-8) 05/12/20 00:52 Ur Specific [place] 1.020 (1.005-1.025) 05/12/20 00:52 Urine Protein 30 mg/dL (Negative) H 05/12/20 00:52 Urine Ketones Negative mg/dL (Negative) 05/12/20 00:52 Urine Blood Negative (Negative) 05/12/20 00:52 Urine Nitrite Negative (Negative) 05/12/20 00:52 Urine Bilirubin Negative (Negative) 05/12/20 00:52 Urine Urobilinogen 0.2 EU/dL (Up TO 0.2) 05/12/20 00:52 Ur Leukocyte Esterase Negative (Negative) 05/12/20 00:52 Urine RBC Negative HPF (0-2) 05/12/20 00:52 Urine WBC Negative HPF (0-5) 05/12/20 00:52 Ur Epithelial Cells Negative HPF (Negative) 05/12/20 00:52 Urine Crystals Negative HPF (Negative) 05/12/20 00:52 Urine Bacteria Negative HPF (Negative) 05/12/20 00:52 Urine Casts Negative LPF (Negative) 05/12/20 00:52 Urine Mucus Trace (Negative) 05/12/20 00:52 Ur Culture Indicated? No 05/12/20 00:52 Urine Glucose Negative mg/dL (Negative) 05/12/20 00:52 COVID-19 PCR Negative (Negative) 05/12/20 00:32 Nasopharyn COVID-19 PCR Not Applicable 05/12/20 00:32 Ref Test Perform Site [facility] lab 05/12/20 00:32 Patient ABO/Rh O Positive 05/13/20 09:35 Antibody Screen Negative 05/13/20 09:35 Crossmatch See Detail 05/13/20 09:35
[2020-05-14 05:53] LABS: Abs Immature Grans 0.02 k/cumm (0.0-0.09); Absolute Basophil Count 0.01 k/cumm (0.0-0.2); Absolute Eosinophil Count 0.02 k/cumm (0.0-0.7); Absolute Lymphocyte Count 0.52 k/cumm (1.2-3.4); Absolute Monocyte Count 0.39 k/cumm (0.11-0.7); Absolute Neutrophil Count 4.48 k/cumm (1.2-6.7); Basophils % 0.2; Eosinophils % 0.4; HGB 7.9 g/dL (13.5-17.5); Immature Grans % 0.4 %; Lymphocytes % 9.6; Mean Corp. HGB Concentration 31.6 g/dL (32.0-36.0); Mean Corpuscular Hemoglobin 37.6 pg (27.0-33.0); Mean Platelet Volume 9.9 fL (8.0-11.0); Monocytes % 7.2; Neutrophils % 82.2; Platelet Count 179 x1000/uL (130-400); RBC Distribution Width 25.2 % (11.8-14.1); White Blood Cell Count 5.44 k/cumm (4.4-10.8)
[2020-05-14 05:57] LABS: Anion Gap 4.2 mmol/L (3-11); BUN 19 mg/dL (7-18); CO2 33.8 mmol/L (21.0-32.0); CREATININE 1.05 mg/dL (0.70-1.30); Chloride 106 mmol/L (98-107); Glucose 117 mg/dL (74-106); Sodium 144 mmol/L (136-145)
[2020-05-14 06:05] LABS: Troponin I < 0.05 ng/mL (<0.06)
[2020-05-14 06:05] LABS: HCO3 33 mmol/L (22-28); pH 7.34 (7.35-7.45); pO2 58 mmHg (83-108); sO2 88 % (94-98); tCO2 29 mmol/L (22-29)
[2020-05-14 06:08] LABS: Site Right Radial; pCO2 62 mmHg (34-47)
--- NOTE | 2020-05-14 06:24 | NUR.NOTE ---
at 0445 pt's O2 sats trended from 60s to 80s. increased oxygen to 4 lpm bled into cpap/bipap pt struggled to hold sats at 80%. RT and Hospitalist paged.
[2020-05-14] MEDS: Furosemide 40 MG/4 ML VIAL IVP (06:25)
[2020-05-14 06:49] LABS: Anisocytosis 1+; Basophilic Stippling Present; Hypochromasia 1+; Macrocytosis 2+; Poikilocytes 1+
--- NOTE | 2020-05-14 07:30 | DI.US_ITS ---
EXAM: US EXTREMITY VENOUS BI CLINICAL HISTORY: leg edema, elevated d-dimer, r/o dvt. TECHNIQUE: Ultrasound performed using standard protocol. COMPARISON: US US ECHOCARDIOGRAM from 05/13/2020 FINDINGS: Duplex venous ultrasound was performed according to the usual protocol. The deep veins are freely com pressible throughout and there is normal flow augmentation with manual calf compression. 2D and Doppl er evaluation are unremarkable. IMPRESSION: No evidence of deep venous thrombosis on evaluation of both lower extremities. DATA REPOSITORY:
[2020-05-14 08:05] LABS: BE 8.8 mmol/L (-3-3); HCO3 34 mmol/L (22-28); pCO2 60 mmHg (34-47); pH 7.37 (7.35-7.45); pO2 78 mmHg (83-108); sO2 96 % (94-98); tCO2 33 mmol/L (22-29)
[2020-05-14 08:07] LABS: FIO2 30 %; Site Right Radial
[2020-05-14] MEDS: Lisinopril 5 MG TAB 10 MG PO (08:18)
[2020-05-14] MEDS: Gabapentin 300 MG CAP 600 MG PO ×3 (08:18→21:04)
[2020-05-14] MEDS: Pantoprazole 40 MG TABCR PO (08:19)
[2020-05-14] MEDS: Metoprolol CR 100 MG TABCR PO (08:19)
[2020-05-14] MEDS: Multivitamin TAB 1 TAB PO (08:19)
--- NOTE | 2020-05-14 08:58 | PGE_ITS ---
Date of Service Date of service: 05/14/20 Time of Service: 08:58 Assessment and Plan Assessment and plan (1) Sepsis: Status: Acute Assessment and plan: Preliminary suspicion for the source of his group G strep bacteremia was felt to be due to a pneumonia. However CT scan of the chest is clarified that he has pleural effusions probably on the basis of CHF although there was no cori pulmonary edema. There were no infiltrates on a CT scan and therefore pneumonia has been ruled out as a cause. Other potential sources for his group G strep bacteremia is skin source. He did have a recent amputation of the second left digit on his foot. However the wound did not appear to be purulent although he had wound dehiscence. See Dr. Briceno's notes for details. Patient sepsis seems to be improving and responding to antibiotic treatment. He is currently on clindamycin and high-dose penicillin G for group G strep bacteremia Qualifiers: Sepsis type: Streptococcus, unspecified Sepsis acute organ dysfunction status: with acute organ dysfunction Acute respiratory failure type: with hypercapnia (2) Pneumonia: Status: Ruled-out Assessment and plan: As above Qualifiers: Pneumonia type: due to Pneumococcus Laterality: right Lung location: lower lobe of lung Qualified Code(s): J13 - Pneumonia due to Streptococcus pneumoniae (3) Chronic wound of extremity: Status: Acute Assessment and plan: See Dr. Briceno's note for details. Patient underwent an amputation of his left second digit of his left foot due to osteomyelitis. And despite leaving the sutures in for a longer period of time the patient still had a wound dehiscence which Dr. Briceno feels that the combination of peripheral vascular disease along with chronic venous stasis. (4) Hypercapnic respiratory failure: Status: Acute Assessment and plan: Secondary to obstructive sleep apnea. Patient needs a trilogy device when he goes home and needs a PSG study as soon as possible. While here in the hospital he will be kept on a BiPAP device such as the sim. He is not a candidate for home BiPAP unit that does not provide backup respiratory rate nor 1 that does not provide compensatory changes in his minute ventilation. Qualifiers: Chronicity: acute on chronic Qualified Code(s): J96.22 - Acute and chronic respiratory failure with hypercapnia (5) Obstructive sleep apnea: Status: Suspected Assessment and plan: See above (6) Anemia: Status: Chronic Assessment and plan: No evidence for GI bleeding. Stool was negative for occult blood. Therefore I think we can safely resume his Lovenox for DVT prophylaxis. We will asked lab to run an iron level off of yesterday's labs. B12 and folate and ferritin levels were normal. If his serum iron level was normal then his anemia is probably secondary to chronic disease such as his osteomyelitis or due to his prostate cancer. Qualifiers: Anemia type: unspecified type Qualified Code(s): D64.9 - Anemia, unspecified Subjective Subjective Interval history since last seen: Patient developed acute on chronic respiratory failure again last night. He was having apneic spells on her home BiPAP unit. RT is since put him on the sim BiPAP unit. When I walked into the ICU this morning it 7:30 AM patient was unresponsive with stable blood pressure and heart rate but an O2 saturation of 79 to 80%. Increase his BiPAP to 100% FiO2 with 20 cm of pressure support and 10 cm of PEEP. This brought his oxygen saturation up to 90% at which point I decreased his FiO2 to 80%. Since that time respiratory therapy has been in and adjusted his BiPAP further. Patient is now fully awake and responsive and nursing staff is wean him to nasal cannula. Repeat chest x- ray shows patchy bilateral pulmonary opacities and possible pleural effusions as well as cardiomegaly. On the right side there is triangular opacity has been read as atelectasis. Think his respiratory failure is multifactorial. He has chronic respiratory failure secondary to JOSE has not been treated and furthermore he had presented with a community-acquired pneumonia and has group G strep bacteremia. Furthermore I think he has evidence on his prior echocardiogram from December of having impaired left ventricular relaxation suggestive of diastolic dysfunction and he also has some mild pulmonary pretension. I think yesterday with the blood transfusions he became volume overloaded and I have since put him on a Lasix drip. Dr. Kolb, fishing rod marker, was initially called about this patient's hypoxemia and hypercarbia. He discontinued the patient's Duragesic patch. I believe the Duragesic patch off for now but start him on a lower dose starting tomorrow. Patient has an elevated d-dimer which is consistent with his pneumonia diagnosis but in light of his acute hypoxemic and hypercarbic respiratory failure patient will be evaluated for possible pulmonary embolus. We will get a CT scan of his chest as well as duplex scan of his legs. Exam Narrative Exam Narrative: Elderly male who is morbidly obese and sits up in his chair eating his breakfast. He is wearing nasal cannula at the present time and appears to be in no acute respiratory distress. He denies any dyspnea or chest discomfort. Chest is barrel shaped. Heart is regular rate and rhythm. Lungs with diffuse diminished breath sounds posteriorly at the bases no rhonchi or wheezing. Objective Objective Clinical Data: Abnormal lab results 05/13/20 05/13/20 05/13/20 Range/Units 06:30 09:35 09:35 RBC (4.50-6.00) m/cumm Hgb 6.8 L* (13.5-17.5) g/dL Hct 22.0 L (40.0-50.0) % MCV (80-95) fL MCH (27.0-33.0) pg MCHC (32.0-36.0) g/dL RDW (11.8-14.1) % Absolute Lymphocytes (1.2-3.4) k/cumm PT (9.3-11.0) sec INR (0.9-1.1) APTT (21.0-31.4) sec ABG pH (7.35-7.45) ABG pCO2 (34-47) mmHg ABG pO2 (83-108) mmHg ABG HCO3 (22-28) mmol/L ABG Total CO2 (22-29) mmol/L ABG O2 Saturation (94-98) % ABG Base Excess (-3-3) mmol/L VBG pCO2 59 H (34-47) mm/Hg VBG HCO3 34 H (22-28) mmol/L VBG Total CO2 34 H (22-29) mmol/L VBG O2 Saturation 60 L (70-80) % VBG Base Excess 9.1 H (-3-3) mmol/L Carbon Dioxide (21.0-32.0) mmol/L BUN (7-18) mg/dL Glucose (74-106) mg/dL Calcium (8.5-10.1) mg/dL Iron 36 L (65-175) ug/dL Crossmatch 05/13/20 05/13/20 05/14/20 Range/Units 09:35 09:35 05:30 RBC (4.50-6.00) m/cumm Hgb (13.5-17.5) g/dL Hct (40.0-50.0) % MCV (80-95) fL MCH (27.0-33.0) pg MCHC (32.0-36.0) g/dL RDW (11.8-14.1) % Absolute Lymphocytes (1.2-3.4) k/cumm PT 11.8 H (9.3-11.0) sec INR 1.2 H (0.9-1.1) APTT 32.3 H (21.0-31.4) sec ABG pH (7.35-7.45) ABG pCO2 (34-47) mmHg ABG pO2 (83-108) mmHg ABG HCO3 (22-28) mmol/L ABG Total CO2 (22-29) mmol/L ABG O2 Saturation (94-98) % ABG Base Excess (-3-3) mmol/L VBG pCO2 (34-47) mm/Hg VBG HCO3 (22-28) mmol/L VBG Total CO2 (22-29) mmol/L VBG O2 Saturation (70-80) % VBG Base Excess (-3-3) mmol/L Carbon Dioxide 33.8 H (21.0-32.0) mmol/L BUN 19 H (7-18) mg/dL Glucose 117 H (74-106) mg/dL Calcium 8.0 L (8.5-10.1) mg/dL Iron (65-175) ug/dL Crossmatch See Detail 05/14/20 05/14/20 05/14/20 Range/Units 05:30 05:45 08:00 RBC 2.10 L (4.50-6.00) m/cumm Hgb 7.9 L (13.5-17.5) g/dL Hct 25.0 L (40.0-50.0) % MCV 119.0 H D (80-95) fL MCH 37.6 H (27.0-33.0) pg MCHC 31.6 L (32.0-36.0) g/dL RDW 25.2 H (11.8-14.1) % Absolute Lymphocytes 0.52 L (1.2-3.4) k/cumm PT (9.3-11.0) sec INR (0.9-1.1) APTT (21.0-31.4) sec ABG pH 7.34 L (7.35-7.45) ABG pCO2 62 H* 60 H (34-47) mmHg ABG pO2 58 L 78 L (83-108) mmHg ABG HCO3 33 H 34 H (22-28) mmol/L ABG Total CO2 33 H (22-29) mmol/L ABG O2 Saturation 88 L (94-98) % ABG Base Excess 7.0 H 8.8 H (-3-3) mmol/L VBG pCO2 (34-47) mm/Hg VBG HCO3 (22-28) mmol/L VBG Total CO2 (22-29) mmol/L VBG O2 Saturation (70-80) % VBG Base Excess (-3-3) mmol/L Carbon Dioxide (21.0-32.0) mmol/L BUN (7-18) mg/dL Glucose (74-106) mg/dL Calcium (8.5-10.1) mg/dL Iron (65-175) ug/dL Crossmatch Vital Signs Temperature 36.4 C L 05/14/20 07:20 Temperature Source Temporal Artery Scan 05/14/20 07:20 Pulse 72 05/14/20 07:20 Pulse 73 05/14/20 08:00 Respiratory Rate 15 05/14/20 08:00 Respiratory Effort 05/14/20 05:34 Respiratory Depth Shallow 05/14/20 07:20 Respiratory Pattern Apnea 05/14/20 07:20 Blood Pressure 146/53 H 05/14/20 07:20 Blood Pressure Mean 84 05/14/20 07:20 Blood Pressure Position Sitting 05/14/20 07:20 Pulse Oximetry 90 L 05/14/20 08:11 Oxygen Delivery Method Nasal Cannula 05/14/20 08:11 Oxygen Flow Rate 1 05/14/20 08:11 Fraction of Inspired Oxygen (FIO2) 30 05/14/20 07:20 Pain Level 0 05/14/20 07:20 Intake & Output 05/13/20 05/13/20 05/14/20 11:59 23:59 11:59 Intake Total 1300.833 / 1906.333 605.5 / 1906.333 200 / 200 Output Total 500 / 500 1600 / 1600 Balance 800.833 / 1406.333 605.5 / 1406.333 -1400 / -1400 Weight 99.3 kg Intake: IV 920.833 / 1218.333 297.5 / 1218.333 200 / 200 Oral 380 / 380 Blood Product 288 / 288 Rbc Leuko Reduced Unit 288 / 288 [id number] Other / Rbc Leuko Reduced Unit / [id number] Output: Urine 500 / 500 1600 / 1600 Other: Urine Color Light Shira Yellow Urine Appearance Clear Cloudy Comment lomeli pt has indwelling lomeli cath pt has indwelling lomeli cath Stool Size Moderate Laboratory Results WBC 5.44 k/cumm (4.4-10.8) 05/14/20 05:30 RBC 2.10 m/cumm (4.50-6.00) L 05/14/20 05:30 Hgb 7.9 g/dL (13.5-17.5) L 05/14/20 05:30 Hct 25.0 % (40.0-50.0) L 05/14/20 05:30 MCV 119.0 fL (80-95) H D 05/14/20 05:30 MCH 37.6 pg (27.0-33.0) H 05/14/20 05:30 MCHC 31.6 g/dL (32.0-36.0) L 05/14/20 05:30 RDW 25.2 % (11.8-14.1) H 05/14/20 05:30 Plt Count 179 x1000/uL (130-400) 05/14/20 05:30 MPV 9.9 fL (8.0-11.0) 05/14/20 05:30 Immature Gran % 0.4 % 05/14/20 05:30 Neutrophils % 82.2 05/14/20 05:30 Lymphocytes % 9.6 05/14/20 05:30 Atypical Lymphs % 1 05/13/20 06:30 Monocytes % 7.2 05/14/20 05:30 Eosinophils % 0.4 05/14/20 05:30 Basophils % 0.2 05/14/20 05:30 Absolute Neutrophils 4.48 k/cumm (1.2-6.7) 05/14/20 05:30 Absolute Lymphocytes 0.52 k/cumm (1.2-3.4) L 05/14/20 05:30 Absolute Monocytes 0.39 k/cumm (0.11-0.7) 05/14/20 05:30 Absolute Eosinophils 0.02 k/cumm (0.0-0.7) 05/14/20 05:30 Absolute Basophils 0.01 k/cumm (0.0-0.2) 05/14/20 05:30 Differential Comment Manual differential 05/13/20 06:30 RBC Morphology See below 05/14/20 05:30 Polychromasia Present 05/13/20 06:30 Hypochromasia 1+ 05/14/20 05:30 Poikilocytosis 1+ 05/14/20 05:30 Basophilic Stippling Present 05/14/20 05:30 Anisocytosis 1+ 05/14/20 05:30 Macrocytosis 2+ 05/14/20 05:30 PT 11.8 sec (9.3-11.0) H 05/13/20 09:35 INR 1.2 (0.9-1.1) H 05/13/20 09:35 APTT 32.3 sec (21.0-31.4) H 05/13/20 09:35 D-Dimer 1126 ng/mlFEU (<500) H 05/12/20 00:25 ABG Sample Site Right radial 05/14/20 08:00 ABG pH 7.37 (7.35-7.45) 05/14/20 08:00 ABG pCO2 60 mmHg (34-47) H 05/14/20 08:00 ABG pO2 78 mmHg (83-108) L 05/14/20 08:00 ABG HCO3 34 mmol/L (22-28) H 05/14/20 08:00 ABG Total CO2 33 mmol/L (22-29) H 05/14/20 08:00 ABG O2 Saturation 96 % (94-98) 05/14/20 08:00 ABG Base Excess 8.8 mmol/L (-3-3) H 05/14/20 08:00 VBG pH 7.37 (7.35-7.45) 05/13/20 09:35 VBG pCO2 59 mm/Hg (34-47) H 05/13/20 09:35 VBG pO2 35 mm/Hg (28-44) 05/13/20 09:35 VBG HCO3 34 mmol/L (22-28) H 05/13/20 09:35 VBG Total CO2 34 mmol/L (22-29) H 05/13/20 09:35 VBG O2 Saturation 60 % (70-80) L 05/13/20 09:35 VBG Base Excess 9.1 mmol/L (-3-3) H 05/13/20 09:35 Oxygen Liter Flow 5 bleed in L 05/14/20 05:45 FiO2 30 % 05/14/20 08:00 Sodium 144 mmol/L (136-145) 05/14/20 05:30 Potassium 4.0 mmol/L (3.5-5.1) 05/14/20 05:30 Chloride 106 mmol/L (98-107) 05/14/20 05:30 Carbon Dioxide 33.8 mmol/L (21.0-32.0) H 05/14/20 05:30 Anion Gap 4.2 mmol/L (3-11) 05/14/20 05:30 BUN 19 mg/dL (7-18) H 05/14/20 05:30 Creatinine 1.05 mg/dL (0.70-1.30) 05/14/20 05:30 Estimated GFR/1.73 m2 >= 60.00 (mL/min/1.73m2) 05/14/20 05:30 Glucose 117 mg/dL (74-106) H 05/14/20 05:30 Lactate 2.0 mmol/L (0.6-1.4) H 05/12/20 00:25 Calcium 8.0 mg/dL (8.5-10.1) L 05/14/20 05:30 Iron 36 ug/dL (65-175) L 05/13/20 06:30 Ferritin 219 ng/mL (26-388) 05/12/20 00:25 Total Bilirubin 0.2 mg/dL (0.2-1.0) 05/13/20 06:30 AST 33 U/L (15-37) 05/13/20 06:30 ALT 41 U/L (16-63) 05/13/20 06:30 Alkaline Phosphatase 65 U/L (46-116) 05/13/20 06:30 Ammonia 32 umol/L (11-32) 05/12/20 00:25 Lactate Dehydrogenase 234 U/L (85-227) H 05/12/20 00:25 Troponin I < 0.05 ng/mL (<0.06) 05/14/20 05:30 C-Reactive Protein 0.51 mg/dL (0.0-0.3) H 05/12/20 00:25 NT-Pro-B Natriuret Pep 2671 pg/mL (<300) H 05/12/20 00:17 Total Protein 5.8 g/dL (6.4-8.2) L 05/13/20 06:30 Albumin 2.6 g/dL (3.4-5.0) L 05/13/20 06:30 Vitamin B12 437 pg/mL (193-986) 05/12/20 06:45 Folate 19.9 ng/mL (8.6-20.0) 05/12/20 06:45 Procalcitonin 0.1 ng/mL 05/12/20 00:25 Urine Color Yellow (Yellow) 05/12/20 00:52 Urine Clarity Clear (Clear) 05/12/20 00:52 Urine pH 7.0 (5-8) 05/12/20 00:52 Ur Specific [place] 1.020 (1.005-1.025) 05/12/20 00:52 Urine Protein 30 mg/dL (Negative) H 05/12/20 00:52 Urine Ketones Negative mg/dL (Negative) 05/12/20 00:52 Urine Blood Negative (Negative) 05/12/20 00:52 Urine Nitrite Negative (Negative) 05/12/20 00:52 Urine Bilirubin Negative (Negative) 05/12/20 00:52 Urine Urobilinogen 0.2 EU/dL (Up TO 0.2) 05/12/20 00:52 Ur Leukocyte Esterase Negative (Negative) 05/12/20 00:52 Urine RBC Negative HPF (0-2) 05/12/20 00:52 Urine WBC Negative HPF (0-5) 05/12/20 00:52 Ur Epithelial Cells Negative HPF (Negative) 05/12/20 00:52 Urine Crystals Negative HPF (Negative) 05/12/20 00:52 Urine Bacteria Negative HPF (Negative) 05/12/20 00:52 Urine Casts Negative LPF (Negative) 05/12/20 00:52 Urine Mucus Trace (Negative) 05/12/20 00:52 Ur Culture Indicated? No 05/12/20 00:52 Urine Glucose Negative mg/dL (Negative) 05/12/20 00:52 COVID-19 PCR Negative (Negative) 05/12/20 00:32 Nasopharyn COVID-19 PCR Not Applicable 05/12/20 00:32 Ref Test Perform Site [facility] 05/12/20 00:32 Patient ABO/Rh O Positive 05/13/20 09:35 Antibody Screen Negative 05/13/20 09:35 Crossmatch See Detail 05/13/20 09:35 Reviewed Pertinent PMH: Yes Objective Narrative Objective Narrative: CTA of the chest: No evidence of pulmonary embolic disease. Bilateral pleural effusions, left greater than right. There is cardiomegaly, the pleural effusions may be on the basis of CHF although no cori pulmonary edema is present. Alternatively, the pleural effusions could be on the basis of metastatic disease from prostate carcinoma. There is no pulmonary consolidation present to suggest the presence of pneumonia. Multiple sclerotic bony metastases are identified in the thorax. venous duplex study of both lower extremities: FINDINGS: Duplex venous ultrasound was performed according to the usual protocol. The deep veins are freely compressible throughout and there is normal flow augmentation with manual calf compression. 2D and Doppler evaluation are unremarkable. IMPRESSION: No evidence of deep venous thrombosis on evaluation of both lower extremities.
--- NOTE | 2020-05-14 09:00 | DI.CT_ITS ---
EXAM: CT CHEST PE CTA CLINICAL HISTORY: Hypoxemic respiratory failure elevated d-dimer TECHNIQUE: COMPARISON: CT CT CHEST/ABD/PEL W from 07/23/2019 FINDINGS: CT angiography of chest was performed with intravenous infusion 1 cc of Omnipaque 350. Patient gisel batista has a history metastatic prostatic carcinoma and there are multiple sclerotic presumed bony met astatic lesions in the spine, ribs, and manubrium. Anterior compression fractures which appear to be old what are probably T3 and T4 vertebral bodies. There is no evidence of pulmonary embolic disease. Thoracic aorta is of normal diameter and major br anches appear intact. No gross mediastinal or hilar adenopathy. Tracheobronchial tree appears intact. There is a large left pleural effusion and smaller right pleural effusion. There are areas of presum ed pressure atelectasis in lung bases left greater than right. There is no cori pulmonary edema or pulmonary consolidation. There is moderate cardiomegaly. No pericardial effusion. Images obtained through the upper abdomen show grossly unremarkable appearance of visualized portions of liver and spleen. IMPRESSION: No evidence of pulmonary embolic disease. Bilateral pleural effusions, left greater than right. There is cardiomegaly, the pleural effusions m ay be on the basis of CHF although no cori pulmonary edema is present. Alternatively, the pleural e ffusions could be on the basis of metastatic disease from prostate carcinoma. There is no pulmonary consolidation present to suggest the presence of pneumonia. Multiple sclerotic bony metastases are identified in the thorax.
[2020-05-14 09:04] LABS: D-Dimer 944 ng/mlFEU (<500)
[2020-05-14] MEDS: Normal Saline Flush 10 ML SYR ×2 (09:16→11:25)
[2020-05-14] MEDS: Omnipaque 350 MG/ML 100 ML BTL IV (10:43)
[2020-05-14] MEDS: fentaNYL 50 MCG PATCH TD (11:20)
[2020-05-14 13:52] LABS: Ferritin 266 ng/mL (26-388)
--- NOTE | 2020-05-14 15:00 | W.PM.PROGNOT ---
Date of Service Date of service: 05/14/20 Time of Service: 15:00 Assessment and Plan Assessment and plan (1) Obstructive sleep apnea: Status: Suspected Assessment and plan: Jesus requires usage of the NIV via the Trilogy in his home upon D/C due to Respiratory Failure secondary to Obesity Hypoventilation (Current BMI= 36.6kg/m according to current weight/height) CHF , Pulmonary Hypertension and severe JOSE, COPD does not contribute to this patient?s pulmonary limitation. He has hypercapnia as shown on his blood gases. PFT also indicates restrictive lung disease with a FEV1/FVC ration of 71.95 %. Jesus continues to be extremely short of breath, lethargic, lightheaded, weak, and struggling to meet the demands of basic ADL?S. Tradition CPAP therapy would not be effective and would not be helpful to treat his current co-morbidities. Traditional BI-PAP has been tried and failed in this facility and also would not effective in managing his current co-morbidities as a intermediate plan. Drager Katelyn was implemented after all other modalities failed to treat the patient settings: The trilogy allows for an AVAPS AE setting this will continue to treat his JOSE but will have the added benefits of meeting his ventilation needs for his other ?Chronic Respiratory Co-Morbidities? including varying tidal volumes and minute ventilation based on his ideal weight, decreases his work of breathing, decreases carbon dioxide retention, increases oxygenation, allows for a long respiratory time to reduce the effects of slow limitation, air trapping and breath stacking, this will improve his overall quality of life and reduce further hospitalizations that may occur without proper treatment. The patient can also use the secondary mode that is exclusive to the Trilogy NIV device, Mouth Piece Ventilation (MPV) this would be used during the daytime waking hours to help with shortness of breath via a mouth piece device. As a treating provider of this patient, it is medically necessary that he use NIV therapy via the Trilogy Non-Invasive Ventilator. The trilogy also operates on a battery which will allow for continued usage during power outages as a lapse in usage or interruption in ventilation may lead to life-threatening consequences, this is extremely important as he will depend on the usage of the equipment on and off threw waking hours in addition to nocturnally for life support. During the period of Covid it is imperative that the patient avoid hospitalizations for treatment that should be managed at home, it is imperative he received this device in his home. (2) Respiratory failure with hypoxia and hypercapnia: Status: Resolved Assessment and plan: Patient is to use his Katelyn at all times in order to prevent hypercapnic and hypoxemic respiratory failure Qualifiers: Chronicity: acute on chronic Qualified Code(s): J96.21 - Acute and chronic respiratory failure with hypoxia; J96.22 - Acute and chronic respiratory failure with hypercapnia (3) Pulmonary hypertension: Status: Acute (4) Hypoventilation associated with obesity: Status: Acute Objective Objective Clinical Data: Abnormal lab results 05/13/20 05/14/20 05/14/20 Range/Units 09:35 05:30 05:30 RBC 2.10 L (4.50-6.00) m/cumm Hgb 7.9 L (13.5-17.5) g/dL Hct 25.0 L (40.0-50.0) % MCV 119.0 H D (80-95) fL MCH 37.6 H (27.0-33.0) pg MCHC 31.6 L (32.0-36.0) g/dL RDW 25.2 H (11.8-14.1) % Absolute Lymphocytes 0.52 L (1.2-3.4) k/cumm D-Dimer (<500) ng/mlFEU ABG pH (7.35-7.45) ABG pCO2 (34-47) mmHg ABG pO2 (83-108) mmHg ABG HCO3 (22-28) mmol/L ABG Total CO2 (22-29) mmol/L ABG O2 Saturation (94-98) % ABG Base Excess (-3-3) mmol/L Carbon Dioxide 33.8 H (21.0-32.0) mmol/L BUN 19 H (7-18) mg/dL Glucose 117 H (74-106) mg/dL Calcium 8.0 L (8.5-10.1) mg/dL Crossmatch See Detail 05/14/20 05/14/20 05/14/20 Range/Units 05:45 06:40 08:00 RBC (4.50-6.00) m/cumm Hgb (13.5-17.5) g/dL Hct (40.0-50.0) % MCV (80-95) fL MCH (27.0-33.0) pg MCHC (32.0-36.0) g/dL RDW (11.8-14.1) % Absolute Lymphocytes (1.2-3.4) k/cumm D-Dimer 944 H (<500) ng/mlFEU ABG pH 7.34 L (7.35-7.45) ABG pCO2 62 H* 60 H (34-47) mmHg ABG pO2 58 L 78 L (83-108) mmHg ABG HCO3 33 H 34 H (22-28) mmol/L ABG Total CO2 33 H (22-29) mmol/L ABG O2 Saturation 88 L (94-98) % ABG Base Excess 7.0 H 8.8 H (-3-3) mmol/L Carbon Dioxide (21.0-32.0) mmol/L BUN (7-18) mg/dL Glucose (74-106) mg/dL Calcium (8.5-10.1) mg/dL Crossmatch Vital Signs Temperature 36.4 C L 05/14/20 07:20 Temperature Source Temporal Artery Scan 05/14/20 07:20 Pulse 64 05/14/20 11:26 Pulse 64 05/14/20 12:00 Respiratory Rate 14 05/14/20 12:00 Respiratory Effort Non-Labored 05/14/20 08:45 Respiratory Depth Normal 05/14/20 08:45 Respiratory Pattern Normal 05/14/20 08:45 Blood Pressure 124/59 L 05/14/20 11:26 Blood Pressure Mean 74 05/14/20 11:26 Blood Pressure Position Sitting 05/14/20 07:20 Pulse Oximetry 99 05/14/20 12:00 Oxygen Delivery Method Nasal Cannula 05/14/20 08:11 Oxygen Flow Rate 1 05/14/20 08:11 Fraction of Inspired Oxygen (FIO2) 30 05/14/20 11:53 Pain Level 0 05/14/20 07:20 Intake & Output 05/13/20 05/14/20 05/14/20 23:59 11:59 23:59 Intake Total 605.5 / 1906.333 773.583 / 1113.583 340 / 1113.583 Output Total 1600 / 2225 625 / 2225 Balance 605.5 / 1406.333 -826.417 / -1111.417 -285 / -1111.417 Weight 99.3 kg Intake: IV 297.5 / 1218.333 533.583 / 633.583 100 / 633.583 Oral 240 / 480 240 / 480 Blood Product 288 / 288 Rbc Leuko Reduced Unit 288 / 288 [id number] Other Rbc Leuko Reduced Unit [id number] Output: Urine 1600 / 2225 625 / 2225 Other: Urine Color Yellow Yellow Urine Appearance Cloudy Cloudy Comment pt has indwelling lomeli cath pt has lomeli cath Stool Size Moderate Stool Characteristics Soft Brown Laboratory Results WBC 5.44 k/cumm (4.4-10.8) 05/14/20 05:30 RBC 2.10 m/cumm (4.50-6.00) L 05/14/20 05:30 Hgb 7.9 g/dL (13.5-17.5) L 05/14/20 05:30 Hct 25.0 % (40.0-50.0) L 05/14/20 05:30 MCV 119.0 fL (80-95) H D 05/14/20 05:30 MCH 37.6 pg (27.0-33.0) H 05/14/20 05:30 MCHC 31.6 g/dL (32.0-36.0) L 05/14/20 05:30 RDW 25.2 % (11.8-14.1) H 05/14/20 05:30 Plt Count 179 x1000/uL (130-400) 05/14/20 05:30 MPV 9.9 fL (8.0-11.0) 05/14/20 05:30 Immature Gran % 0.4 % 05/14/20 05:30 Neutrophils % 82.2 05/14/20 05:30 Lymphocytes % 9.6 05/14/20 05:30 Atypical Lymphs % 1 05/13/20 06:30 Monocytes % 7.2 05/14/20 05:30 Eosinophils % 0.4 05/14/20 05:30 Basophils % 0.2 05/14/20 05:30 Absolute Neutrophils 4.48 k/cumm (1.2-6.7) 05/14/20 05:30 Absolute Lymphocytes 0.52 k/cumm (1.2-3.4) L 05/14/20 05:30 Absolute Monocytes 0.39 k/cumm (0.11-0.7) 05/14/20 05:30 Absolute Eosinophils 0.02 k/cumm (0.0-0.7) 05/14/20 05:30 Absolute Basophils 0.01 k/cumm (0.0-0.2) 05/14/20 05:30 Differential Comment Manual differential 05/13/20 06:30 RBC Morphology See below 05/14/20 05:30 Polychromasia Present 05/13/20 06:30 Hypochromasia 1+ 05/14/20 05:30 Poikilocytosis 1+ 05/14/20 05:30 Basophilic Stippling Present 05/14/20 05:30 Anisocytosis 1+ 05/14/20 05:30 Macrocytosis 2+ 05/14/20 05:30 PT 11.8 sec (9.3-11.0) H 05/13/20 09:35 INR 1.2 (0.9-1.1) H 05/13/20 09:35 APTT 32.3 sec (21.0-31.4) H 05/13/20 09:35 D-Dimer 944 ng/mlFEU (<500) H 05/14/20 06:40 ABG Sample Site Right radial 05/14/20 08:00 ABG pH 7.37 (7.35-7.45) 05/14/20 08:00 ABG pCO2 60 mmHg (34-47) H 05/14/20 08:00 ABG pO2 78 mmHg (83-108) L 05/14/20 08:00 ABG HCO3 34 mmol/L (22-28) H 05/14/20 08:00 ABG Total CO2 33 mmol/L (22-29) H 05/14/20 08:00 ABG O2 Saturation 96 % (94-98) 05/14/20 08:00 ABG Base Excess 8.8 mmol/L (-3-3) H 05/14/20 08:00 VBG pH 7.37 (7.35-7.45) 05/13/20 09:35 VBG pCO2 59 mm/Hg (34-47) H 05/13/20 09:35 VBG pO2 35 mm/Hg (28-44) 05/13/20 09:35 VBG HCO3 34 mmol/L (22-28) H 05/13/20 09:35 VBG Total CO2 34 mmol/L (22-29) H 05/13/20 09:35 VBG O2 Saturation 60 % (70-80) L 05/13/20 09:35 VBG Base Excess 9.1 mmol/L (-3-3) H 05/13/20 09:35 Oxygen Liter Flow 5 bleed in L 05/14/20 05:45 FiO2 30 % 05/14/20 08:00 Sodium 144 mmol/L (136-145) 05/14/20 05:30 Potassium 4.0 mmol/L (3.5-5.1) 05/14/20 05:30 Chloride 106 mmol/L (98-107) 05/14/20 05:30 Carbon Dioxide 33.8 mmol/L (21.0-32.0) H 05/14/20 05:30 Anion Gap 4.2 mmol/L (3-11) 05/14/20 05:30 BUN 19 mg/dL (7-18) H 05/14/20 05:30 Creatinine 1.05 mg/dL (0.70-1.30) 05/14/20 05:30 Estimated GFR/1.73 m2 >= 60.00 (mL/min/1.73m2) 05/14/20 05:30 Glucose 117 mg/dL (74-106) H 05/14/20 05:30 Lactate 2.0 mmol/L (0.6-1.4) H 05/12/20 00:25 Calcium 8.0 mg/dL (8.5-10.1) L 05/14/20 05:30 Iron Cancelled 05/14/20 12:04 Ferritin 266 ng/mL (26-388) 05/13/20 06:30 Total Bilirubin 0.2 mg/dL (0.2-1.0) 05/13/20 06:30 AST 33 U/L (15-37) 05/13/20 06:30 ALT 41 U/L (16-63) 05/13/20 06:30 Alkaline Phosphatase 65 U/L (46-116) 05/13/20 06:30 Ammonia 32 umol/L (11-32) 05/12/20 00:25 Lactate Dehydrogenase 234 U/L (85-227) H 05/12/20 00:25 Troponin I < 0.05 ng/mL (<0.06) 05/14/20 05:30 C-Reactive Protein 0.51 mg/dL (0.0-0.3) H 05/12/20 00:25 NT-Pro-B Natriuret Pep 2671 pg/mL (<300) H 05/12/20 00:17 Total Protein 5.8 g/dL (6.4-8.2) L 05/13/20 06:30 Albumin 2.6 g/dL (3.4-5.0) L 05/13/20 06:30 Vitamin B12 437 pg/mL (193-986) 05/12/20 06:45 Folate 19.9 ng/mL (8.6-20.0) 05/12/20 06:45 Procalcitonin 0.1 ng/mL 05/12/20 00:25 Urine Color Yellow (Yellow) 05/12/20 00:52 Urine Clarity Clear (Clear) 05/12/20 00:52 Urine pH 7.0 (5-8) 05/12/20 00:52 Ur Specific [place] 1.020 (1.005-1.025) 05/12/20 00:52 Urine Protein 30 mg/dL (Negative) H 05/12/20 00:52 Urine Ketones Negative mg/dL (Negative) 05/12/20 00:52 Urine Blood Negative (Negative) 05/12/20 00:52 Urine Nitrite Negative (Negative) 05/12/20 00:52 Urine Bilirubin Negative (Negative) 05/12/20 00:52 Urine Urobilinogen 0.2 EU/dL (Up TO 0.2) 05/12/20 00:52 Ur Leukocyte Esterase Negative (Negative) 05/12/20 00:52 Urine RBC Negative HPF (0-2) 05/12/20 00:52 Urine WBC Negative HPF (0-5) 05/12/20 00:52 Ur Epithelial Cells Negative HPF (Negative) 05/12/20 00:52 Urine Crystals Negative HPF (Negative) 05/12/20 00:52 Urine Bacteria Negative HPF (Negative) 05/12/20 00:52 Urine Casts Negative LPF (Negative) 05/12/20 00:52 Urine Mucus Trace (Negative) 05/12/20 00:52 Ur Culture Indicated? No 05/12/20 00:52 Urine Glucose Negative mg/dL (Negative) 05/12/20 00:52 COVID-19 PCR Negative (Negative) 05/12/20 00:32 Nasopharyn COVID-19 PCR Not Applicable 05/12/20 00:32 Ref Test Perform Site [facility] lab 05/12/20 00:32 Patient ABO/Rh O Positive 05/13/20 09:35 Antibody Screen Negative 05/13/20 09:35 Crossmatch See Detail 05/13/20 09:35
--- NOTE | 2020-05-14 16:16 | PDOC.CMPRO ---
- If Service Date Differs Date of service: 05/14/20 Time of Service: 16:17 Care Management Progress Note S/O: Manjit was sitting up in a chair when CM met with him. He reported that he was feeling better today. He stated that [facility] had just been testing him in order to possibly qualify him for a Trilogy machine. He stated that he uses a FWW to get around currently. He was pleasant and engaged in conversation. CM will continue to follow. A: Manjit is a 79 year old male admitted to [facility] on 05/12/20 with PNA with sepsis. P: Lester will likely return home, possibly with home health services, when medically cleared. He will transport via private vehicle with his and follow up with his PCP. CM will continue to support patient, family and discharge planning needs.
--- NOTE | 2020-05-14 17:42 | PGE_ITS ---
Date of Service Date of service: 05/14/20 Time of Service: 17:42 Subjective Subjective Patient reports: no new complaints and feels better Exam Narrative Exam Narrative: Vascular exam: Chronic venous stasis disease with +1 peripheral edema is appreciated affecting both lower extremities. His legs and feet are warm to the touch. He did have noninvasive venous Doppler studies of both lower extremities and no DVT findings noted. Capillary return to all intact digits is on the 5 seconds. A dehisced wound is noted over the distal second metatarsal head of the left foot site of amputation. There is a little maceration along the lateral wall of the great toe where it sits against the distal aspect of the foot. There is no erythema or cellulitis anywhere on the left foot at this time. Preliminary culture reports are back indicating that a group G streptococcus, staph species and E. coli sensitivities are pending. He is currently receiving high-dose penicillin G 4,000,000 units every 4 hours and clindamycin 900 mg every 8 hours IV Impression: Wound dehiscence second digit amputation site left foot likely a combination of peripheral arterial disease, venous stasis disease Plan: Continue Wound care consisting of wet-to-dry every 12 to clean up the wound and I will consider placing a wound VAC. Vascular studies will be sought once he is medically stable as these are done at [facility]. His current antibiotic regimen should cover the organisms that are present in the foot and we will coordinate/modify that pending culture results. Objective Objective Clinical Data: Abnormal lab results 05/14/20 05/14/20 05/14/20 Range/Units 05:30 05:30 05:45 RBC 2.10 L (4.50-6.00) m/cumm Hgb 7.9 L (13.5-17.5) g/dL Hct 25.0 L (40.0-50.0) % MCV 119.0 H D (80-95) fL MCH 37.6 H (27.0-33.0) pg MCHC 31.6 L (32.0-36.0) g/dL RDW 25.2 H (11.8-14.1) % Absolute Lymphocytes 0.52 L (1.2-3.4) k/cumm D-Dimer (<500) ng/mlFEU ABG pH 7.34 L (7.35-7.45) ABG pCO2 62 H* (34-47) mmHg ABG pO2 58 L (83-108) mmHg ABG HCO3 33 H (22-28) mmol/L ABG Total CO2 (22-29) mmol/L ABG O2 Saturation 88 L (94-98) % ABG Base Excess 7.0 H (-3-3) mmol/L Carbon Dioxide 33.8 H (21.0-32.0) mmol/L BUN 19 H (7-18) mg/dL Glucose 117 H (74-106) mg/dL Calcium 8.0 L (8.5-10.1) mg/dL 05/14/20 05/14/20 Range/Units 06:40 08:00 RBC (4.50-6.00) m/cumm Hgb (13.5-17.5) g/dL Hct (40.0-50.0) % MCV (80-95) fL MCH (27.0-33.0) pg MCHC (32.0-36.0) g/dL RDW (11.8-14.1) % Absolute Lymphocytes (1.2-3.4) k/cumm D-Dimer 944 H (<500) ng/mlFEU ABG pH (7.35-7.45) ABG pCO2 60 H (34-47) mmHg ABG pO2 78 L (83-108) mmHg ABG HCO3 34 H (22-28) mmol/L ABG Total CO2 33 H (22-29) mmol/L ABG O2 Saturation (94-98) % ABG Base Excess 8.8 H (-3-3) mmol/L Carbon Dioxide (21.0-32.0) mmol/L BUN (7-18) mg/dL Glucose (74-106) mg/dL Calcium (8.5-10.1) mg/dL Vital Signs Temperature 36.5 C 05/14/20 15:05 Temperature Source Temporal Artery Scan 05/14/20 15:05 Pulse 64 05/14/20 11:26 Pulse 63 05/14/20 16:00 Respiratory Rate 14 05/14/20 16:00 Respiratory Effort Non-Labored 05/14/20 15:05 Respiratory Depth Normal 05/14/20 15:05 Respiratory Pattern Normal 05/14/20 15:05 Blood Pressure 124/59 L 05/14/20 11:26 Blood Pressure Mean 74 05/14/20 11:26 Blood Pressure Position Sitting 05/14/20 07:20 Pulse Oximetry 99 05/14/20 12:00 Oxygen Delivery Method Nasal Cannula 05/14/20 08:11 Oxygen Flow Rate 1 05/14/20 08:11 Fraction of Inspired Oxygen (FIO2) 30 05/14/20 11:53 Pain Level 0 05/14/20 15:05 Intake & Output 05/13/20 05/14/20 05/14/20 18:59 06:59 18:59 Intake Total 1188.00 / 1438.00 250 / 1438.00 913.583 / 913.583 Output Total 800 / 800 625 / 625 Balance 1188.00 / 638.00 -550 / 638.00 288.583 / 288.583 Weight 99.3 kg Intake: IV 700.00 / 950.00 250 / 950.00 433.583 / 433.583 Oral 180 / 180 480 / 480 Blood Product 288 / 288 Rbc Leuko Reduced Unit 288 / 288 [id number] Other Rbc Leuko Reduced Unit [id number] Output: Urine 800 / 800 625 / 625 Other: Urine Color Dark Shira Yellow Urine Appearance Cloudy Cloudy Comment lomeli pt has indwelling lomeli cath pt has olmeli cath draining clear yellow urine Stool Size Moderate Stool Characteristics Soft Brown Laboratory Results WBC 5.44 k/cumm (4.4-10.8) 05/14/20 05:30 RBC 2.10 m/cumm (4.50-6.00) L 05/14/20 05:30 Hgb 7.9 g/dL (13.5-17.5) L 05/14/20 05:30 Hct 25.0 % (40.0-50.0) L 05/14/20 05:30 MCV 119.0 fL (80-95) H D 05/14/20 05:30 MCH 37.6 pg (27.0-33.0) H 05/14/20 05:30 MCHC 31.6 g/dL (32.0-36.0) L 05/14/20 05:30 RDW 25.2 % (11.8-14.1) H 05/14/20 05:30 Plt Count 179 x1000/uL (130-400) 05/14/20 05:30 MPV 9.9 fL (8.0-11.0) 05/14/20 05:30 Immature Gran % 0.4 % 05/14/20 05:30 Neutrophils % 82.2 05/14/20 05:30 Lymphocytes % 9.6 05/14/20 05:30 Atypical Lymphs % 1 05/13/20 06:30 Monocytes % 7.2 05/14/20 05:30 Eosinophils % 0.4 05/14/20 05:30 Basophils % 0.2 05/14/20 05:30 Absolute Neutrophils 4.48 k/cumm (1.2-6.7) 05/14/20 05:30 Absolute Lymphocytes 0.52 k/cumm (1.2-3.4) L 05/14/20 05:30 Absolute Monocytes 0.39 k/cumm (0.11-0.7) 05/14/20 05:30 Absolute Eosinophils 0.02 k/cumm (0.0-0.7) 05/14/20 05:30 Absolute Basophils 0.01 k/cumm (0.0-0.2) 05/14/20 05:30 Differential Comment Manual differential 05/13/20 06:30 RBC Morphology See below 05/14/20 05:30 Polychromasia Present 05/13/20 06:30 Hypochromasia 1+ 05/14/20 05:30 Poikilocytosis 1+ 05/14/20 05:30 Basophilic Stippling Present 05/14/20 05:30 Anisocytosis 1+ 05/14/20 05:30 Macrocytosis 2+ 05/14/20 05:30 PT 11.8 sec (9.3-11.0) H 05/13/20 09:35 INR 1.2 (0.9-1.1) H 05/13/20 09:35 APTT 32.3 sec (21.0-31.4) H 05/13/20 09:35 D-Dimer 944 ng/mlFEU (<500) H 05/14/20 06:40 ABG Sample Site Right radial 05/14/20 08:00 ABG pH 7.37 (7.35-7.45) 05/14/20 08:00 ABG pCO2 60 mmHg (34-47) H 05/14/20 08:00 ABG pO2 78 mmHg (83-108) L 05/14/20 08:00 ABG HCO3 34 mmol/L (22-28) H 05/14/20 08:00 ABG Total CO2 33 mmol/L (22-29) H 05/14/20 08:00 ABG O2 Saturation 96 % (94-98) 05/14/20 08:00 ABG Base Excess 8.8 mmol/L (-3-3) H 05/14/20 08:00 VBG pH 7.37 (7.35-7.45) 05/13/20 09:35 VBG pCO2 59 mm/Hg (34-47) H 05/13/20 09:35 VBG pO2 35 mm/Hg (28-44) 05/13/20 09:35 VBG HCO3 34 mmol/L (22-28) H 05/13/20 09:35 VBG Total CO2 34 mmol/L (22-29) H 05/13/20 09:35 VBG O2 Saturation 60 % (70-80) L 05/13/20 09:35 VBG Base Excess 9.1 mmol/L (-3-3) H 05/13/20 09:35 Oxygen Liter Flow 5 bleed in L 05/14/20 05:45 FiO2 30 % 05/14/20 08:00 Sodium 144 mmol/L (136-145) 05/14/20 05:30 Potassium 4.0 mmol/L (3.5-5.1) 05/14/20 05:30 Chloride 106 mmol/L (98-107) 05/14/20 05:30 Carbon Dioxide 33.8 mmol/L (21.0-32.0) H 05/14/20 05:30 Anion Gap 4.2 mmol/L (3-11) 05/14/20 05:30 BUN 19 mg/dL (7-18) H 05/14/20 05:30 Creatinine 1.05 mg/dL (0.70-1.30) 05/14/20 05:30 Estimated GFR/1.73 m2 >= 60.00 (mL/min/1.73m2) 05/14/20 05:30 Glucose 117 mg/dL (74-106) H 05/14/20 05:30 Lactate 2.0 mmol/L (0.6-1.4) H 05/12/20 00:25 Calcium 8.0 mg/dL (8.5-10.1) L 05/14/20 05:30 Iron Cancelled 05/14/20 12:04 Ferritin 266 ng/mL (26-388) 05/13/20 06:30 Total Bilirubin 0.2 mg/dL (0.2-1.0) 05/13/20 06:30 AST 33 U/L (15-37) 05/13/20 06:30 ALT 41 U/L (16-63) 05/13/20 06:30 Alkaline Phosphatase 65 U/L (46-116) 05/13/20 06:30 Ammonia 32 umol/L (11-32) 05/12/20 00:25 Lactate Dehydrogenase 234 U/L (85-227) H 05/12/20 00:25 Troponin I < 0.05 ng/mL (<0.06) 05/14/20 05:30 C-Reactive Protein 0.51 mg/dL (0.0-0.3) H 05/12/20 00:25 NT-Pro-B Natriuret Pep 2671 pg/mL (<300) H 05/12/20 00:17 Total Protein 5.8 g/dL (6.4-8.2) L 05/13/20 06:30 Albumin 2.6 g/dL (3.4-5.0) L 05/13/20 06:30 Vitamin B12 437 pg/mL (193-986) 05/12/20 06:45 Folate 19.9 ng/mL (8.6-20.0) 05/12/20 06:45 Procalcitonin 0.1 ng/mL 05/12/20 00:25 Urine Color Yellow (Yellow) 05/12/20 00:52 Urine Clarity Clear (Clear) 05/12/20 00:52 Urine pH 7.0 (5-8) 05/12/20 00:52 Ur Specific [place] 1.020 (1.005-1.025) 05/12/20 00:52 Urine Protein 30 mg/dL (Negative) H 05/12/20 00:52 Urine Ketones Negative mg/dL (Negative) 05/12/20 00:52 Urine Blood Negative (Negative) 05/12/20 00:52 Urine Nitrite Negative (Negative) 05/12/20 00:52 Urine Bilirubin Negative (Negative) 05/12/20 00:52 Urine Urobilinogen 0.2 EU/dL (Up TO 0.2) 05/12/20 00:52 Ur Leukocyte Esterase Negative (Negative) 05/12/20 00:52 Urine RBC Negative HPF (0-2) 05/12/20 00:52 Urine WBC Negative HPF (0-5) 05/12/20 00:52 Ur Epithelial Cells Negative HPF (Negative) 05/12/20 00:52 Urine Crystals Negative HPF (Negative) 05/12/20 00:52 Urine Bacteria Negative HPF (Negative) 05/12/20 00:52 Urine Casts Negative LPF (Negative) 05/12/20 00:52 Urine Mucus Trace (Negative) 05/12/20 00:52 Ur Culture Indicated? No 05/12/20 00:52 Urine Glucose Negative mg/dL (Negative) 05/12/20 00:52 COVID-19 PCR Negative (Negative) 05/12/20 00:32 Nasopharyn COVID-19 PCR Not Applicable 05/12/20 00:32 Ref Test Perform Site [facility] lab 05/12/20 00:32 Patient ABO/Rh O Positive 05/13/20 09:35 Antibody Screen Negative 05/13/20 09:35 Crossmatch See Detail 05/13/20 09:35
[2020-05-15] VITALS (13 sets, daily range): BP systolic 126–164; BP diastolic 57–103; PULSE 57–78; RESP 10–19; TEMP 36.3–37.1; O2SAT 92–99
[2020-05-15] MEDS: CLINDAMYCIN 900 MG/50 ML BAG 50 MG IVPB ×3 (04:26→19:10)
--- NOTE | 2020-05-15 05:09 | NUR.NOTE ---
pt sat in shair in room and slept all shift. Sleeps in recliner at h ome. feet elevated on chair in room. refused trilogy and bipap tonight. sats 97% on 1 liter n/c.Nursing Note:
[2020-05-15 06:58] LABS: BE (Venous) 12.4 mmol/L (-3-3); HCO3 (Venous) 38 mmol/L (22-28); O2 Sat (Venous) 78 % (70-80); TCO2 (Venous) 37 mmol/L (22-29); pH (Venous) 7.35 (7.35-7.45); pO2 (Venous) 43 mm/Hg (28-44)
[2020-05-15 06:59] LABS: Abs Immature Grans 0.01 k/cumm (0.0-0.09); Absolute Basophil Count 0.01 k/cumm (0.0-0.2); Absolute Eosinophil Count 0.03 k/cumm (0.0-0.7); Absolute Lymphocyte Count 0.61 k/cumm (1.2-3.4); Absolute Monocyte Count 0.34 k/cumm (0.11-0.7); Absolute Neutrophil Count 3.05 k/cumm (1.2-6.7); Basophils % 0.2; Eosinophils % 0.7; HCT 24.3 % (40.0-50.0); HGB 7.7 g/dL (13.5-17.5); Immature Grans % 0.2 %; Lymphocytes % 15.1; Mean Corp. HGB Concentration 31.7 g/dL (32.0-36.0); Mean Corpuscular Hemoglobin 37.2 pg (27.0-33.0); Mean Corpuscular Volume 117.4 fL (80-95); Mean Platelet Volume 10.2 fL (8.0-11.0); Monocytes % 8.4; Neutrophils % 75.4; Platelet Count 180 x1000/uL (130-400); RBC 2.07 m/cumm (4.50-6.00); RBC Distribution Width 22.6 % (11.8-14.1); White Blood Cell Count 4.05 k/cumm (4.4-10.8)
[2020-05-15 07:06] LABS: Lactate 0.6 mmol/L (0.6-1.4); pCO2 (Venous) 70 mm/Hg (34-47)
[2020-05-15 07:21] LABS: Anion Gap 1.9 mmol/L (3-11); BUN 17 mg/dL (7-18); C-Reactive Protein 5.56 mg/dL (0.0-0.3); CO2 37.1 mmol/L (21.0-32.0); CREATININE 1.01 mg/dL (0.70-1.30); Calcium 7.7 mg/dL (8.5-10.1); Chloride 103 mmol/L (98-107); Glucose 124 mg/dL (74-106); Potassium 3.9 mmol/L (3.5-5.1); Sodium 142 mmol/L (136-145)
[2020-05-15 07:24] LABS: Anisocytosis 2+; Diff Comment RBC Morph Reviewed; Hypochromasia 1+; Macrocytosis 3+; Poikilocytes 1+; Polychromasia Present
[2020-05-15 07:47] LABS: Procalcitonin 2.5 ng/mL
[2020-05-15] MEDS: Lisinopril 5 MG TAB 10 MG PO (08:14)
[2020-05-15] MEDS: Zinc Sulfate 220 MG TAB PO (08:14)
[2020-05-15] MEDS: Multivitamin TAB 1 TAB PO (08:14)
[2020-05-15] MEDS: Pantoprazole 40 MG TABCR PO (08:14)
[2020-05-15] MEDS: Gabapentin 300 MG CAP 600 MG PO ×3 (08:15→19:10)
[2020-05-15] MEDS: Metoprolol CR 100 MG TABCR PO (08:15)
--- NOTE | 2020-05-15 09:27 | W.PM.PROGNOT ---
Date of Service Date of service: 05/15/20 Time of Service: 09:27 Assessment and Plan Assessment and plan (1) Group G streptococcal infection: Status: Acute Assessment and plan: Continue high-dose penicillin G along with clindamycin. Dr. Briceno is recommending a wound VAC over the left foot to protect the amputation site. Patient's echocardiogram showed no vegetations on his transthoracic echocardiogram. I repeat his blood cultures tomorrow to see if he is clearing his bacteremia. If his repeat blood cultures are negative he can get a midline or PICC line as he is going to need at least 4 weeks of IV antibiotics. (2) Respiratory failure with hypoxia and hypercapnia: Status: Resolved Assessment and plan: Patient is to use his Sim at all times in order to prevent hypercapnic and hypoxemic respiratory failure. Patient is being referred for home trilogy unit. Paperwork has been completed. Qualifiers: Chronicity: acute on chronic Qualified Code(s): J96.21 - Acute and chronic respiratory failure with hypoxia; J96.22 - Acute and chronic respiratory failure with hypercapnia (3) Obstructive sleep apnea: Status: Suspected Assessment and plan: Jesus requires usage of the NIV via the Trilogy in his home upon D/C due to Respiratory Failure secondary to Obesity Hypoventilation (Current BMI= 36.6kg/m according to current weight/height) CHF , Pulmonary Hypertension and severe JOSE, COPD does not contribute to this patient?s pulmonary limitation. He has hypercapnia as shown on his blood gases. PFT also indicates restrictive lung disease with a FEV1/FVC ration of 71.95 %. Jesus continues to be extremely short of breath, lethargic, lightheaded, weak, and struggling to meet the demands of basic ADL?S. Tradition CPAP therapy would not be effective and would not be helpful to treat his current co-morbidities. Traditional BI-PAP has been tried and failed in this facility and also would not effective in managing his current co-morbidities as a retirement plan. Drager Sim was implemented after all other modalities failed to treat the patient settings: The trilogy allows for an AVAPS AE setting this will continue to treat his JOSE but will have the added benefits of meeting his ventilation needs for his other ?Chronic Respiratory Co-Morbidities? including varying tidal volumes and minute ventilation based on his ideal weight, decreases his work of breathing, decreases carbon dioxide retention, increases oxygenation, allows for a long respiratory time to reduce the effects of slow limitation, air trapping and breath stacking, this will improve his overall quality of life and reduce further hospitalizations that may occur without proper treatment. The patient can also use the secondary mode that is exclusive to the Trilogy NIV device, Mouth Piece Ventilation (MPV) this would be used during the daytime waking hours to help with shortness of breath via a mouth piece device. As a treating provider of this patient, it is medically necessary that he use NIV therapy via the Trilogy Non-Invasive Ventilator. The trilogy also operates on a battery which will allow for continued usage during power outages as a lapse in usage or interruption in ventilation may lead to life-threatening consequences, this is extremely important as he will depend on the usage of the equipment on and off threw waking hours in addition to nocturnally for life support. During the period of Covid it is imperative that the patient avoid hospitalizations for treatment that should be managed at home, it is imperative he received this device in his home. (4) Pulmonary hypertension: Status: Acute Assessment and plan: As above. Recommend referral to pulmonary hypertension clinic upon discharge from the hospital. (5) Hypoventilation associated with obesity: Status: Acute Assessment and plan: Treatment as listed in JOSE above (6) Chronic wound of extremity: Status: Acute Assessment and plan: Dr. Briceno's participation in this patient's care is greatly appreciated. See his notes for detail. (7) Acute congestive heart failure: Status: Suspected Assessment and plan: DC Lasix drip and place him on program dose of p.o. Lasix. Monitor his daily weight. Monitor his daily BMP Qualifiers: Heart failure type: unspecified Qualified Code(s): I50.9 - Heart failure, unspecified (8) Bone metastases: Status: Acute Assessment and plan: Continue fentanyl patch but I am going extended to 72 hours because of his tendency for hypoventilation and frequently dozing off during the day. He does not appear to be in significant pain. With respect to his Lynparza told his we need to hold off on his chemotherapy until we are sure that the bacteremia has resolved. I do not think he needs to stay off this for the duration of his antibiotic treatment but I want to be sure that the bacteremia has cleared. (9) Anemia: Status: Chronic Assessment and plan: Anemia has improved with transfusion. I think this is an anemia of chronic disease that was exacerbated by dilution from his IV fluids during resuscitation when he was septic. Qualifiers: Anemia type: unspecified type Qualified Code(s): D64.9 - Anemia, unspecified (10) DVT prophylaxis: Status: Acute Assessment and plan: No evidence for acute bleeding there from in a resume his enoxaparin. (11) Discharge planning issues: Status: Acute Assessment and plan: Patient will need a PICC line prior to discharge and depending on the final antibiotic choice that we put him on he may need a SNF placement for completion of his antibiotic treatment. Subjective Subjective Interval history since last seen: Overnight patient says he did not sleep at all. Per nursing staff he slept in the chair but was awake most of the night. He had variable compliance with use of his sim last night. Since he was not sleeping he did not think he needed to wear it. I reinforced with him a time he is not actively talking in conversation with somebody or eating he should be wearing his BiPAP to improve his ventilation since he has hypoventilation syndrome and JOSE. With respect to his alleged pneumonia CT scan yesterday did not show any pulmonary infiltrates. Nevertheless he does have group G strep bacteremia probably from skin source. 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 The wound has dehisced does not look purulent nevertheless wound culture obtained by Dr. Briceno is demonstrating multiple organisms including scant growth of staph aureus and scant growth of Pseudomonas and rare growth of group G strep. I will broaden his coverage and add cefepime for Pseudomonas coverage. Because of his peripheral neuropathy I did not use a quinolone. With respect to his diastolic heart failure he is responded very well to the Lasix drip. I have switched that over to oral Lasix. Exam Narrative Exam Narrative: Morbidly obese male who is alert oriented person place time and circumstance sitting up eating his breakfast. Lungs reveal diffusely diminished breath sounds with some basilar rales no rhonchi or wheezing. Heart regular rate and rhythm no appreciable murmur rub or gallop. Abdomen is obese soft and nontender. Lower extremities with 3+ tense edema of his feet and ankles with dependent rubor. Left amputation site was dressed and I did not open this up to look at. Objective Objective Clinical Data: Abnormal lab results 05/15/20 05/15/20 05/15/20 Range/Units 06:40 06:40 06:40 WBC 4.05 L (4.4-10.8) k/cumm RBC 2.07 L (4.50-6.00) m/cumm Hgb 7.7 L (13.5-17.5) g/dL Hct 24.3 L (40.0-50.0) % MCV 117.4 H (80-95) fL MCH 37.2 H (27.0-33.0) pg MCHC 31.7 L (32.0-36.0) g/dL RDW 22.6 H (11.8-14.1) % Absolute Lymphocytes 0.61 L (1.2-3.4) k/cumm VBG pCO2 70 H* (34-47) mm/Hg VBG HCO3 38 H (22-28) mmol/L VBG Total CO2 37 H (22-29) mmol/L VBG Base Excess 12.4 H (-3-3) mmol/L Carbon Dioxide 37.1 H (21.0-32.0) mmol/L Anion Gap 1.9 L (3-11) mmol/L Glucose 124 H (74-106) mg/dL Calcium 7.7 L (8.5-10.1) mg/dL C-Reactive Protein 5.56 H (0.0-0.3) mg/dL Vital Signs Temperature 36.4 C L 05/15/20 05:03 Temperature Source Temporal Artery Scan 05/15/20 05:03 Pulse 64 05/15/20 05:03 Pulse 66 05/15/20 04:47 Respiratory Rate 13 05/15/20 05:03 Respiratory Effort Non-Labored 05/14/20 15:05 Respiratory Depth Normal 05/14/20 15:05 Respiratory Pattern Normal 05/14/20 15:05 Blood Pressure 137/57 L 05/15/20 05:03 Blood Pressure Mean 78 05/15/20 04:46 Blood Pressure Position Sitting 05/14/20 07:20 Pulse Oximetry 99 05/15/20 08:00 Oxygen Delivery Method Nasal Cannula 05/15/20 08:00 Oxygen Flow Rate 1 05/15/20 08:00 Fraction of Inspired Oxygen (FIO2) 30 05/14/20 11:53 Pain Level 0 05/15/20 05:03 Intake & Output 05/14/20 05/14/20 05/15/20 11:59 23:59 11:59 Intake Total 773.583 / 1405.583 632 / 1483.960 2067.417 / 1144.417 Output Total 800 / 1875 1075 / 1875 1800 / 1800 Balance -26.417 / -469.417 -443 / -469.417 -655.583 / -655.583 Weight 99.3 kg Intake: IV 533.583 / 925.583 392 / 925.583 664.417 / 664.417 Oral 240 / 480 240 / 480 480 / 480 Output: Urine 800 / 1425 625 / 1425 1800 / 1800 Stool 450 / 450 Other: Urine Color Yellow Yellow Straw Urine Appearance Cloudy Cloudy Clear Comment pt has lomeli cath pt has lomeli cath draining clear yellow urine Stool Occult Blood Negative Stool Size Moderate Small Stool Characteristics Soft Soft Brown Brown Laboratory Results WBC 4.05 k/cumm (4.4-10.8) L 05/15/20 06:40 RBC 2.07 m/cumm (4.50-6.00) L 05/15/20 06:40 Hgb 7.7 g/dL (13.5-17.5) L 05/15/20 06:40 Hct 24.3 % (40.0-50.0) L 05/15/20 06:40 MCV 117.4 fL (80-95) H 05/15/20 06:40 MCH 37.2 pg (27.0-33.0) H 05/15/20 06:40 MCHC 31.7 g/dL (32.0-36.0) L 05/15/20 06:40 RDW 22.6 % (11.8-14.1) H 05/15/20 06:40 Plt Count 180 x1000/uL (130-400) 05/15/20 06:40 MPV 10.2 fL (8.0-11.0) 05/15/20 06:40 Immature Gran % 0.2 % 05/15/20 06:40 Neutrophils % 75.4 05/15/20 06:40 Lymphocytes % 15.1 05/15/20 06:40 Atypical Lymphs % 1 05/13/20 06:30 Monocytes % 8.4 05/15/20 06:40 Eosinophils % 0.7 05/15/20 06:40 Basophils % 0.2 05/15/20 06:40 Absolute Neutrophils 3.05 k/cumm (1.2-6.7) 05/15/20 06:40 Absolute Lymphocytes 0.61 k/cumm (1.2-3.4) L 05/15/20 06:40 Absolute Monocytes 0.34 k/cumm (0.11-0.7) 05/15/20 06:40 Absolute Eosinophils 0.03 k/cumm (0.0-0.7) 05/15/20 06:40 Absolute Basophils 0.01 k/cumm (0.0-0.2) 05/15/20 06:40 Differential Comment Rbc morph reviewed 05/15/20 06:40 RBC Morphology See below 05/15/20 06:40 Polychromasia Present 05/15/20 06:40 Hypochromasia 1+ 05/15/20 06:40 Poikilocytosis 1+ 05/15/20 06:40 Basophilic Stippling Present 05/14/20 05:30 Anisocytosis 2+ 05/15/20 06:40 Macrocytosis 3+ 05/15/20 06:40 PT 11.8 sec (9.3-11.0) H 05/13/20 09:35 INR 1.2 (0.9-1.1) H 05/13/20 09:35 APTT 32.3 sec (21.0-31.4) H 05/13/20 09:35 D-Dimer 944 ng/mlFEU (<500) H 05/14/20 06:40 ABG Sample Site Right radial 05/14/20 08:00 ABG pH 7.37 (7.35-7.45) 05/14/20 08:00 ABG pCO2 60 mmHg (34-47) H 05/14/20 08:00 ABG pO2 78 mmHg (83-108) L 05/14/20 08:00 ABG HCO3 34 mmol/L (22-28) H 05/14/20 08:00 ABG Total CO2 33 mmol/L (22-29) H 05/14/20 08:00 ABG O2 Saturation 96 % (94-98) 05/14/20 08:00 ABG Base Excess 8.8 mmol/L (-3-3) H 05/14/20 08:00 VBG pH 7.35 (7.35-7.45) 05/15/20 06:40 VBG pCO2 70 mm/Hg (34-47) H* 05/15/20 06:40 VBG pO2 43 mm/Hg (28-44) 05/15/20 06:40 VBG HCO3 38 mmol/L (22-28) H 05/15/20 06:40 VBG Total CO2 37 mmol/L (22-29) H 05/15/20 06:40 VBG O2 Saturation 78 % (70-80) 05/15/20 06:40 VBG Base Excess 12.4 mmol/L (-3-3) H 05/15/20 06:40 Oxygen Liter Flow 5 bleed in L 05/14/20 05:45 FiO2 30 % 05/14/20 08:00 Sodium 142 mmol/L (136-145) 05/15/20 06:40 Potassium 3.9 mmol/L (3.5-5.1) 05/15/20 06:40 Chloride 103 mmol/L (98-107) 05/15/20 06:40 Carbon Dioxide 37.1 mmol/L (21.0-32.0) H 05/15/20 06:40 Anion Gap 1.9 mmol/L (3-11) L 05/15/20 06:40 BUN 17 mg/dL (7-18) 05/15/20 06:40 Creatinine 1.01 mg/dL (0.70-1.30) 05/15/20 06:40 Estimated GFR/1.73 m2 >= 60.00 (mL/min/1.73m2) 05/15/20 06:40 Glucose 124 mg/dL (74-106) H 05/15/20 06:40 Lactate 0.6 mmol/L (0.6-1.4) 05/15/20 06:40 Calcium 7.7 mg/dL (8.5-10.1) L 05/15/20 06:40 Iron Cancelled 05/14/20 12:04 Ferritin 266 ng/mL (26-388) 05/13/20 06:30 Total Bilirubin 0.2 mg/dL (0.2-1.0) 05/13/20 06:30 AST 33 U/L (15-37) 05/13/20 06:30 ALT 41 U/L (16-63) 05/13/20 06:30 Alkaline Phosphatase 65 U/L (46-116) 05/13/20 06:30 Ammonia 32 umol/L (11-32) 05/12/20 00:25 Lactate Dehydrogenase 234 U/L (85-227) H 05/12/20 00:25 Troponin I < 0.05 ng/mL (<0.06) 05/14/20 05:30 C-Reactive Protein 5.56 mg/dL (0.0-0.3) H 05/15/20 06:40 NT-Pro-B Natriuret Pep 2671 pg/mL (<300) H 05/12/20 00:17 Total Protein 5.8 g/dL (6.4-8.2) L 05/13/20 06:30 Albumin 2.6 g/dL (3.4-5.0) L 05/13/20 06:30 Vitamin B12 437 pg/mL (193-986) 05/12/20 06:45 Folate 19.9 ng/mL (8.6-20.0) 05/12/20 06:45 Procalcitonin 2.5 ng/mL 05/15/20 06:40 Urine Color Yellow (Yellow) 05/12/20 00:52 Urine Clarity Clear (Clear) 05/12/20 00:52 Urine pH 7.0 (5-8) 05/12/20 00:52 Ur Specific [place] 1.020 (1.005-1.025) 05/12/20 00:52 Urine Protein 30 mg/dL (Negative) H 05/12/20 00:52 Urine Ketones Negative mg/dL (Negative) 05/12/20 00:52 Urine Blood Negative (Negative) 05/12/20 00:52 Urine Nitrite Negative (Negative) 05/12/20 00:52 Urine Bilirubin Negative (Negative) 05/12/20 00:52 Urine Urobilinogen 0.2 EU/dL (Up TO 0.2) 05/12/20 00:52 Ur Leukocyte Esterase Negative (Negative) 05/12/20 00:52 Urine RBC Negative HPF (0-2) 05/12/20 00:52 Urine WBC Negative HPF (0-5) 05/12/20 00:52 Ur Epithelial Cells Negative HPF (Negative) 05/12/20 00:52 Urine Crystals Negative HPF (Negative) 05/12/20 00:52 Urine Bacteria Negative HPF (Negative) 05/12/20 00:52 Urine Casts Negative LPF (Negative) 05/12/20 00:52 Urine Mucus Trace (Negative) 05/12/20 00:52 Ur Culture Indicated? No 05/12/20 00:52 Urine Glucose Negative mg/dL (Negative) 05/12/20 00:52 COVID-19 PCR Negative (Negative) 05/12/20 00:32 Nasopharyn COVID-19 PCR Not Applicable 05/12/20 00:32 Ref Test Perform Site [facility] lab 05/12/20 00:32 Patient ABO/Rh O Positive 05/13/20 09:35 Antibody Screen Negative 05/13/20 09:35 Crossmatch See Detail 05/13/20 09:35
--- NOTE | 2020-05-15 09:35 | CMPROGNOTE_ITS ---
- If Service Date Differs Date of service: 05/15/20 Time of Service: 09:35 Care Management Progress Note S/O: Lester was sitting up in a chair when CM met with him. He was open and friendly and readily engaged in conversation. Lester shared the events of the past few months which included having a toe amputated and difficulties with breathing at times. A wound vac was applied to his toe wound this morning and he shared that he was told it could be needed for several months but that he did not b elieve that would be the case. He also stated that he now needs CPAP and intends to comply with that recommendation. He admitted that he did not sleep well last night. Lester's came to visit while CM was present and shared in the conversation. Per provider, Lester is improving. He has been moved out of the ICU. His blood cultures are positive for Group G strep and it is likely that he will need several weeks of IV antibiotics once the bacteremia clears. A: Manjit is a 79 year old male admitted to [facility] on 05/12/20 with PNA with sepsis. P: Lester will likely return home, possibly with home health services, when medically cleared. He will likely require detention IV antibiotics ( 4 weeks). It has not been determined where the infusions will occur. He will transport via private vehicle with his and follow up with his PCP. CM will continue to support patient, family and discharge planning needs.
[2020-05-15] MEDS: Potassium Chloride 20 MEQ TABCR PO ×2 (09:58→19:11)
[2020-05-15] MEDS: Furosemide 40 MG TAB PO ×2 (09:58→16:43)
--- NOTE | 2020-05-15 12:30 | W.NUTRFU ---
Date of service: 05/15/20 Time of Service: 12:30 Nutritional Follow up NOTE: 79 year old male admitted with sepsis, PNA with metastatic prostate cancer with mets to bone, obesity. BMI indicates class 2 obesity. Following Low sodium/heart healthy diet wtih excellent intake (>75%). Not at nutritional risk at this time. Will follow. Time Spent in Nutritional Counseling and Treatment: 0
--- NOTE | 2020-05-15 13:51 | NUR.NOTE ---
Nursing Note: 1303: pt transferred from icu 221 to ms 207 via wc. pt alert/oriented at this time. oriented to call lindsay/tv remote. in recliner at this time. lomeli draining clear yellow urine. IV in LFA with abx running at this time. pt on 02. see vs intervention for further information.
[2020-05-15] MEDS: CEFEPIME 2 GM in Normal Saline 100 ML IVPB ×2 (14:44→21:25)
[2020-05-15] MEDS: Normal Saline Flush 10 ML SYR (19:11)
[2020-05-16] MEDS: CLINDAMYCIN 900 MG/50 ML BAG 50 MG IVPB ×3 (04:41→19:16)
[2020-05-16 04:44] VITALS: BP 163/59; PULSE 68; RESP 19; TEMP 37.2; O2SAT 100
[2020-05-16] MEDS: CEFEPIME 2 GM in Normal Saline 100 ML IVPB ×3 (06:02→21:49)
[2020-05-16] MEDS: Pantoprazole 40 MG TABCR PO (07:14)
[2020-05-16 07:47] LABS: Abs Immature Grans 0.01 k/cumm (0.0-0.09); Absolute Basophil Count 0.01 k/cumm (0.0-0.2); Absolute Eosinophil Count 0.03 k/cumm (0.0-0.7); Absolute Lymphocyte Count 0.54 k/cumm (1.2-3.4); Absolute Monocyte Count 0.44 k/cumm (0.11-0.7); Absolute Neutrophil Count 1.96 k/cumm (1.2-6.7); Basophils % 0.3; HCT 24.7 % (40.0-50.0); HGB 7.8 g/dL (13.5-17.5); Immature Grans % 0.3 %; Lymphocytes % 18.1; Mean Corp. HGB Concentration 31.6 g/dL (32.0-36.0); Mean Corpuscular Hemoglobin 36.6 pg (27.0-33.0); Mean Platelet Volume 9.9 fL (8.0-11.0); Monocytes % 14.7; Neutrophils % 65.6; Platelet Count 194 x1000/uL (130-400); RBC 2.13 m/cumm (4.50-6.00); RBC Distribution Width 21.5 % (11.8-14.1); White Blood Cell Count 2.99 k/cumm (4.4-10.8)
[2020-05-16 08:01] LABS: Anion Gap 0.2 mmol/L (3-11); BUN 16 mg/dL (7-18); CO2 37.8 mmol/L (21.0-32.0); CREATININE 0.89 mg/dL (0.70-1.30); Calcium 8.4 mg/dL (8.5-10.1); Chloride 104 mmol/L (98-107); Glucose 120 mg/dL (74-106); NT-proBNP 1641 pg/mL (<300); Potassium 4.5 mmol/L (3.5-5.1); Sodium 142 mmol/L (136-145)
[2020-05-16 08:13] LABS: Anisocytosis 2+; Diff Comment RBC Morph Reviewed; Hypochromasia 1+; Macrocytosis 2+; Microcytosis 1+; Poikilocytes 1+; Polychromasia Present
[2020-05-16] MEDS: Zinc Sulfate 220 MG TAB PO (08:47)
[2020-05-16] MEDS: Gabapentin 300 MG CAP 600 MG PO (08:47)
[2020-05-16] MEDS: Metoprolol CR 100 MG TABCR PO (08:47)
[2020-05-16] MEDS: Multivitamin TAB 1 TAB PO (08:48)
[2020-05-16] MEDS: Potassium Chloride 20 MEQ TABCR PO ×2 (08:48→20:37)
[2020-05-16] MEDS: Lisinopril 5 MG TAB 10 MG PO (08:48)
[2020-05-16] MEDS: Furosemide 40 MG TAB PO ×2 (08:48→15:52)
[2020-05-16 09:35] VITALS: BP 161/65; PULSE 71; RESP 17; TEMP 37.3; O2SAT 99
[2020-05-16] MEDS: Normal Saline Flush 10 ML SYR (11:31)
--- NOTE | 2020-05-16 12:37 | WOUNDCARE ---
Wound Care Report Wound Care consult placed by Dr. Briceno on 05/14/20 while Pt was in ICU for initiation of wound vac. Wound care nurse not notified of consult until 05/16/20. Vac placed on 05/15/20 by ICU nurse.
[2020-05-16] MEDS: Enoxaparin 40 MG/0.4 ML SYR SC (13:43)
[2020-05-16] MEDS: Gabapentin 600 MG TAB PO ×2 (13:43→20:36)
[2020-05-16] MEDS: fentaNYL 50 MCG PATCH TD (13:44)
--- NOTE | 2020-05-16 14:31 | PGE_ITS ---
Date of Service Date of service: 05/16/20 Time of Service: 14:31 Assessment and Plan Assessment and plan (1) Group G streptococcal infection: Status: Acute Assessment and plan: Sepsis on admission - resolved. Source - L foot wound infection/dehiscence associated with chronic osteo post debridement on 04/03/2020. Repeat blood cultures on 05/14/2020 - 1 bottle positive for staph (not aurereus, likely contaminant). Blood cultures from this am pending. Currently on Pen G/Clindamycin day 4. Also on cefepime for the pseudomonas. Echo without valvular pathology (transthoracic). Seeking consultation with ID re simplifying antibiotics. (2) Chronic wound of extremity: Status: Acute Assessment and plan: As above. Continue wound vac. (3) Respiratory failure with hypoxia and hypercapnia: Status: Resolved Assessment and plan: Tolerating/doing well with Trilogy here, which he is being prescribed on discharge. Qualifiers: Chronicity: acute on chronic Qualified Code(s): J96.21 - Acute and chronic respiratory failure with hypoxia; J96.22 - Acute and chronic respiratory failure with hypercapnia (4) Obstructive sleep apnea: Status: Suspected Assessment and plan: Continue trilogy as above (5) Pulmonary hypertension: Status: Acute Assessment and plan: Agree that he would benefit from referral to pulmonology on discharge. (6) Hypoventilation associated with obesity: Status: Acute Assessment and plan: Continue trilogy. (7) Acute congestive heart failure: Status: Suspected Assessment and plan: Tolerating PO lasix. Continue to monitor I/Os and daily weights. Qualifiers: Heart failure type: unspecified Qualified Code(s): I50.9 - Heart failure, unspecified (8) Bone metastases: Status: Acute Assessment and plan: Reaching out to oncology at [facility] [place] to see if it is safe to continue with lynparza. (9) Anemia: Status: Chronic Assessment and plan: s/p transfusion of 1 unit of pRBCS. Agree that anemia is likely multifactorial - of chronic disease as well as dilutional. Qualifiers: Anemia type: unspecified type Qualified Code(s): D64.9 - Anemia, unspecified (10) DVT prophylaxis: Status: Acute Assessment and plan: Continue lovenox (11) Discharge planning issues: Status: Acute Assessment and plan: Hoping to be able to discharge the patient home with a PICC if his newest blood cultures are negative. Subjective Subjective Interval history since last seen: Mr Adrian states I don't just feel better, I feel good! Denies dizziness, chest pain, shortness of breath, nausea, vomiting. He has a wound vac on his LLE, functioning without problems, per nursing. His requests physical therapy for him. She is inquiring whether his lynparza should be held in setting of acute infection or if it can be given safely. Slept with trilogy on - went well. Likes the nasal mask. Exam Narrative Exam Narrative: General: Very pleasant elderly male, A&Ox3, looks well HEENT: EOMI, MMM Heart: RRR, no m/r/g Lungs: CTAB/diminished B Abdomen: soft, nontender, nondsitended Extremities: L foot wound with wound vac, dressed, c/d/i. Objective Objective Clinical Data: Abnormal lab results 05/16/20 05/16/20 Range/Units 07:05 07:05 WBC 2.99 L (4.4-10.8) k/cumm RBC 2.13 L (4.50-6.00) m/cumm Hgb 7.8 L (13.5-17.5) g/dL Hct 24.7 L (40.0-50.0) % MCV 116.0 H (80-95) fL MCH 36.6 H (27.0-33.0) pg MCHC 31.6 L (32.0-36.0) g/dL RDW 21.5 H (11.8-14.1) % Absolute Lymphocytes 0.54 L (1.2-3.4) k/cumm Carbon Dioxide 37.8 H (21.0-32.0) mmol/L Anion Gap 0.2 L (3-11) mmol/L Glucose 120 H (74-106) mg/dL Calcium 8.4 L (8.5-10.1) mg/dL NT-Pro-B Natriuret Pep 1641 H (<300) pg/mL Vital Signs Temperature 37.3 C 05/16/20 09:35 Temperature Source Temporal Artery Scan 05/16/20 09:35 Pulse 71 05/16/20 09:35 Pulse Rhythm Regular 05/16/20 07:45 Pulse 59 L 05/15/20 09:04 Respiratory Rate 17 05/16/20 09:35 Respiratory Effort Non-Labored 05/16/20 07:45 Respiratory Depth Normal 05/16/20 07:45 Respiratory Pattern Normal 05/16/20 07:45 Blood Pressure 161/65 H 05/16/20 09:35 Blood Pressure Mean 107 05/15/20 09:04 Blood Pressure Position Sitting 05/15/20 08:00 Pulse Oximetry 99 05/16/20 09:35 Oxygen Delivery Method Nasal Cannula 05/16/20 09:35 Oxygen Flow Rate 1 05/16/20 09:35 Fraction of Inspired Oxygen (FIO2) 30 05/14/20 11:53 Pain Level 0 05/16/20 09:35 Comment 05/15/20 23:32 Intake & Output 05/15/20 05/16/20 05/16/20 23:59 11:59 23:59 Intake Total 1190 / 2484.417 810 / 910 100 / 910 Output Total 1700 / 3500 1275 / 2675 1400 / 2675 Balance -510 / -1015.583 -465 / -1765 -1300 / -1765 Intake: IV 460 / 1274.417 310 / 410 100 / 410 Oral 730 / 1210 500 / 500 Output: Urine 1700 / 3500 1275 / 2675 1400 / 2675 Other: Urine Color Yellow Yellow Yellow Urine Appearance Clear Clear Clear Stool Occult Blood Negative Stool Size Small Small Small Stool Characteristics Soft Formed Soft Liquid Black Brown Brown Green Black Laboratory Results WBC 2.99 k/cumm (4.4-10.8) L 05/16/20 07:05 RBC 2.13 m/cumm (4.50-6.00) L 05/16/20 07:05 Hgb 7.8 g/dL (13.5-17.5) L 05/16/20 07:05 Hct 24.7 % (40.0-50.0) L 05/16/20 07:05 MCV 116.0 fL (80-95) H 05/16/20 07:05 MCH 36.6 pg (27.0-33.0) H 05/16/20 07:05 MCHC 31.6 g/dL (32.0-36.0) L 05/16/20 07:05 RDW 21.5 % (11.8-14.1) H 05/16/20 07:05 Plt Count 194 x1000/uL (130-400) 05/16/20 07:05 MPV 9.9 fL (8.0-11.0) 05/16/20 07:05 Immature Gran % 0.3 % 05/16/20 07:05 Neutrophils % 65.6 05/16/20 07:05 Lymphocytes % 18.1 05/16/20 07:05 Atypical Lymphs % 1 05/13/20 06:30 Monocytes % 14.7 05/16/20 07:05 Eosinophils % 1.0 05/16/20 07:05 Basophils % 0.3 05/16/20 07:05 Absolute Neutrophils 1.96 k/cumm (1.2-6.7) 05/16/20 07:05 Absolute Lymphocytes 0.54 k/cumm (1.2-3.4) L 05/16/20 07:05 Absolute Monocytes 0.44 k/cumm (0.11-0.7) 05/16/20 07:05 Absolute Eosinophils 0.03 k/cumm (0.0-0.7) 05/16/20 07:05 Absolute Basophils 0.01 k/cumm (0.0-0.2) 05/16/20 07:05 Differential Comment Rbc morph reviewed 05/16/20 07:05 RBC Morphology See below 05/16/20 07:05 Polychromasia Present 05/16/20 07:05 Hypochromasia 1+ 05/16/20 07:05 Poikilocytosis 1+ 05/16/20 07:05 Basophilic Stippling Present 05/14/20 05:30 Anisocytosis 2+ 05/16/20 07:05 Microcytosis 1+ 05/16/20 07:05 Macrocytosis 2+ 05/16/20 07:05 PT 11.8 sec (9.3-11.0) H 05/13/20 09:35 INR 1.2 (0.9-1.1) H 05/13/20 09:35 APTT 32.3 sec (21.0-31.4) H 05/13/20 09:35 D-Dimer 944 ng/mlFEU (<500) H 05/14/20 06:40 ABG Sample Site Right radial 05/14/20 08:00 ABG pH 7.37 (7.35-7.45) 05/14/20 08:00 ABG pCO2 60 mmHg (34-47) H 05/14/20 08:00 ABG pO2 78 mmHg (83-108) L 05/14/20 08:00 ABG HCO3 34 mmol/L (22-28) H 05/14/20 08:00 ABG Total CO2 33 mmol/L (22-29) H 05/14/20 08:00 ABG O2 Saturation 96 % (94-98) 05/14/20 08:00 ABG Base Excess 8.8 mmol/L (-3-3) H 05/14/20 08:00 VBG pH 7.35 (7.35-7.45) 05/15/20 06:40 VBG pCO2 70 mm/Hg (34-47) H* 05/15/20 06:40 VBG pO2 43 mm/Hg (28-44) 05/15/20 06:40 VBG HCO3 38 mmol/L (22-28) H 05/15/20 06:40 VBG Total CO2 37 mmol/L (22-29) H 05/15/20 06:40 VBG O2 Saturation 78 % (70-80) 05/15/20 06:40 VBG Base Excess 12.4 mmol/L (-3-3) H 05/15/20 06:40 Oxygen Liter Flow 5 bleed in L 05/14/20 05:45 FiO2 30 % 05/14/20 08:00 Sodium 142 mmol/L (136-145) 05/16/20 07:05 Potassium 4.5 mmol/L (3.5-5.1) 05/16/20 07:05 Chloride 104 mmol/L (98-107) 05/16/20 07:05 Carbon Dioxide 37.8 mmol/L (21.0-32.0) H 05/16/20 07:05 Anion Gap 0.2 mmol/L (3-11) L 05/16/20 07:05 BUN 16 mg/dL (7-18) 05/16/20 07:05 Creatinine 0.89 mg/dL (0.70-1.30) 05/16/20 07:05 Estimated GFR/1.73 m2 >= 60.00 (mL/min/1.73m2) 05/16/20 07:05 Glucose 120 mg/dL (74-106) H 05/16/20 07:05 Lactate 0.6 mmol/L (0.6-1.4) 05/15/20 06:40 Calcium 8.4 mg/dL (8.5-10.1) L 05/16/20 07:05 Iron Cancelled 05/14/20 12:04 Ferritin 266 ng/mL (26-388) 05/13/20 06:30 Total Bilirubin 0.2 mg/dL (0.2-1.0) 05/13/20 06:30 AST 33 U/L (15-37) 05/13/20 06:30 ALT 41 U/L (16-63) 05/13/20 06:30 Alkaline Phosphatase 65 U/L (46-116) 05/13/20 06:30 Ammonia 32 umol/L (11-32) 05/12/20 00:25 Lactate Dehydrogenase 234 U/L (85-227) H 05/12/20 00:25 Troponin I < 0.05 ng/mL (<0.06) 05/14/20 05:30 C-Reactive Protein 5.56 mg/dL (0.0-0.3) H 05/15/20 06:40 NT-Pro-B Natriuret Pep 1641 pg/mL (<300) H 05/16/20 07:05 Total Protein 5.8 g/dL (6.4-8.2) L 05/13/20 06:30 Albumin 2.6 g/dL (3.4-5.0) L 05/13/20 06:30 Vitamin B12 437 pg/mL (193-986) 05/12/20 06:45 Folate 19.9 ng/mL (8.6-20.0) 05/12/20 06:45 Procalcitonin 2.5 ng/mL 05/15/20 06:40 Urine Color Yellow (Yellow) 05/12/20 00:52 Urine Clarity Clear (Clear) 05/12/20 00:52 Urine pH 7.0 (5-8) 05/12/20 00:52 Ur Specific Mason 1.020 (1.005-1.025) 05/12/20 00:52 Urine Protein 30 mg/dL (Negative) H 05/12/20 00:52 Urine Ketones Negative mg/dL (Negative) 05/12/20 00:52 Urine Blood Negative (Negative) 05/12/20 00:52 Urine Nitrite Negative (Negative) 05/12/20 00:52 Urine Bilirubin Negative (Negative) 05/12/20 00:52 Urine Urobilinogen 0.2 EU/dL (Up TO 0.2) 05/12/20 00:52 Ur Leukocyte Esterase Negative (Negative) 05/12/20 00:52 Urine RBC Negative HPF (0-2) 05/12/20 00:52 Urine WBC Negative HPF (0-5) 05/12/20 00:52 Ur Epithelial Cells Negative HPF (Negative) 05/12/20 00:52 Urine Crystals Negative HPF (Negative) 05/12/20 00:52 Urine Bacteria Negative HPF (Negative) 05/12/20 00:52 Urine Casts Negative LPF (Negative) 05/12/20 00:52 Urine Mucus Trace (Negative) 05/12/20 00:52 Ur Culture Indicated? No 05/12/20 00:52 Urine Glucose Negative mg/dL (Negative) 05/12/20 00:52 COVID-19 PCR Negative (Negative) 05/12/20 00:32 Nasopharyn COVID-19 PCR Not Applicable 05/12/20 00:32 Ref Test Perform Site [facility] lab 05/12/20 00:32 Patient ABO/Rh O Positive 05/13/20 09:35 Antibody Screen Negative 05/13/20 09:35 Crossmatch See Detail 05/13/20 09:35
[2020-05-16 16:03] VITALS: BP 146/68; PULSE 66; RESP 19; TEMP 37; O2SAT 94
[2020-05-16 19:00] VITALS: BP 158/65; PULSE 61; RESP 18; TEMP 37.2; O2SAT 98
--- NOTE | 2020-05-16 19:52 | PDOC.CMPRO ---
- If Service Date Differs Date of service: 05/16/20 Time of Service: 19:52 Care Management Progress Note S/O: Lester was sitting up in a chair when CM met with him. He was pleasant and readily engaged in conversation. He stated that he slept better last night than the previous night and that he feels better. No change in plan;Lester appears to be slowly improving and remains afebrile. A: Manjit is a 79 year old male admitted to [facility] on 05/12/20 with PNA with sepsis. P: Lester will likely return home, possibly with home health services, when medically cleared. He will likely require half-way IV antibiotics ( 4 weeks). It has not been determined where the infusions will occur. He will transport via private vehicle with his and follow up with his PCP. CM will continue to support patient, family and discharge planning needs.
[2020-05-16] MEDS: Acetaminophen 325 MG TAB PO (20:38)
[2020-05-16 23:05] VITALS: BP 146/73; PULSE 63; RESP 17; TEMP 37.1; O2SAT 97
[2020-05-17] MEDS: Normal Saline Flush 10 ML SYR IVP ×4 (00:55→22:41)
[2020-05-17] MEDS: CLINDAMYCIN 900 MG/50 ML BAG 50 MG IVPB (03:39)
[2020-05-17 04:00] VITALS: BP 146/70; PULSE 59; RESP 17; TEMP 37.2; O2SAT 98
[2020-05-17] MEDS: CEFEPIME 2 GM in Normal Saline 100 ML IVPB ×3 (05:27→22:42)
[2020-05-17] MEDS: Pantoprazole 40 MG TABCR PO (07:05)
[2020-05-17 07:33] VITALS: BP 176/62; PULSE 60; RESP 17; TEMP 36.6; O2SAT 96
[2020-05-17 07:39] LABS: Abs Immature Grans 0.02 k/cumm (0.0-0.09); Absolute Basophil Count 0.02 k/cumm (0.0-0.2); Absolute Eosinophil Count 0.04 k/cumm (0.0-0.7); Absolute Lymphocyte Count 0.77 k/cumm (1.2-3.4); Absolute Monocyte Count 0.39 k/cumm (0.11-0.7); Absolute Neutrophil Count 1.56 k/cumm (1.2-6.7); Basophils % 0.7; Eosinophils % 1.4; HCT 25.8 % (40.0-50.0); HGB 8.3 g/dL (13.5-17.5); Immature Grans % 0.7 %; Lymphocytes % 27.5; Mean Corp. HGB Concentration 32.2 g/dL (32.0-36.0); Mean Corpuscular Hemoglobin 37.7 pg (27.0-33.0); Mean Corpuscular Volume 117.3 fL (80-95); Mean Platelet Volume 9.9 fL (8.0-11.0); Monocytes % 13.9; Neutrophils % 55.8; Platelet Count 220 x1000/uL (130-400); RBC Distribution Width 21.4 % (11.8-14.1)
[2020-05-17] MEDS: Gabapentin 600 MG TAB PO ×3 (07:44→20:23)
[2020-05-17] MEDS: Potassium Chloride 20 MEQ TABCR PO ×2 (07:45→20:23)
[2020-05-17] MEDS: Furosemide 40 MG TAB PO ×2 (07:45→16:14)
[2020-05-17] MEDS: Multivitamin TAB 1 TAB PO (07:45)
[2020-05-17] MEDS: Zinc Sulfate 220 MG TAB PO (07:45)
[2020-05-17] MEDS: Metoprolol CR 100 MG TABCR PO (07:45)
[2020-05-17] MEDS: Lisinopril 10 MG TAB PO (07:45)
[2020-05-17 07:54] LABS: Anion Gap 0.5 mmol/L (3-11); BUN 16 mg/dL (7-18); C-Reactive Protein 2.21 mg/dL (0.0-0.3); CO2 37.5 mmol/L (21.0-32.0); CREATININE 0.93 mg/dL (0.70-1.30); Calcium 8.7 mg/dL (8.5-10.1); Chloride 104 mmol/L (98-107); Glucose 112 mg/dL (74-106); Potassium 4.7 mmol/L (3.5-5.1); Sodium 142 mmol/L (136-145)
--- NOTE | 2020-05-17 09:39 | CMPROGNOTE_ITS ---
- If Service Date Differs Date of service: 05/17/20 Time of Service: 09:39 Care Management Progress Note S/O: Lester was sitting up in a chair when CM met with him. He was pleasant and readily engaged in conversation. His Lotus was in to visit much of the day. Lester continues to feel well. Per provider, he will require 4 weeks of IV antibiotics with Cefepime 2Gm q 8h. CM to contact [facility] tomorrow to begin arrangements for home infusion. A: Manjit is a 79 year old male admitted to [facility] on 05/12/20 with PNA with sepsis. P: Lester will likely return home, possibly with home health services, when medically cleared. He will likely require senior care IV antibiotics ( 4 weeks). It has not been determined where the infusions will occur. He will transport via private vehicle with his and follow up with his PCP. CM will continue to support patient, family and discharge planning needs.
--- NOTE | 2020-05-17 10:16 | IN_ITS ---
Date of service: 05/17/20 Time of Service: 09:30 PT Notes Visit Reasons: Pneumonia Inpatient Physical Therapy Evaluation Date: 05/17/20 Referring Doctor: Loly Brown MD PT Orders: PT CONSULT: Limited ability Precautions: Fall risk, standard Patient Profile/Admitting Diagnosis: Lester was initially admitted 05/12/20 with mental status changes, later discovered to be related to Sepsis with Group B strep infection, following left toe amputation, as well as pleural effusion in setting of chronic CHF, and multiple comorbidities listed below. Patient's been referred to PT due to his limited ability/mobility. 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 Is a one-story home, with a ramp to enter. The home was overall handicap accessible. Current Functional Limitations: Dependent on walker for ambulation of short distance, requires some assist for self-care activities, fall risk with all functional transfers requires close supervision, and assist with higher activities. Equipment Owned/DME: Front wheeled walker, and up walker, ramp Subjective: Patient reporting he is feeling very deconditioned, from his premorbid level of function, which is not exceptional in the first place. His balance is very poor, and he has to bend forward when ambulating with a walker in order keep himself falling. When standing up taller he feels more unsteady, and he has pain increased to the right gluteal crease related to history of cancer. He is ambulated with a walker bending forward for multiple years, generally on his forearms to steady him more. Recently purchased an up walker which he finds to be very helpful so he can utilize his forearms and stand taller. He is hopeful that he will soon be able to return to outpatient physical therapy, he had to discontinue due to the COVID-19 pandemic. He feels he is become very weak and deconditioned, since having to put that on hold. Objective: General Observation: Seated in recliner chair, nasal O2 cannula, B[place], wound VAC left foot Mental Status: A&O x3 Pain: Right gluteal crease, when standing. This is due to history of cancer, which he manages with a fentanyl patch. Vital Signs: 172/2 BP, 60 HR, 96 O2 saturation on 1/2 L of O2 via nasal cannula ROM: Right Upper Extremity: 90 degrees of abduction, scapular 120 degrees, patient demonstrating shoulder hiking throughout with RC pathology. Otherwise, WNL Left Upper Extremity: 90 degrees of abduction, scapular motion of 120 degrees, again with shoulder aching likely related to her pathology. Otherwise, WNL Right Lower Extremity: Knee 0 to 120 degrees, hypomobile ankle, hip flexion 100 degrees, limited rotation of the hips of about 10 degrees externally and internally Left Lower Extremity: Comparable to right Strength: Right Upper Extremity: Shoulder 3/5 with the above available ROM, with movement pattern suggesting RC pathology. Elbow flexion, extension 4/5, wrist all planes 3+/ Left Upper Extremity: Comparable with right upper extremity Right Lower Extremity: Hip flexion 3+/5, knee flexion/extension 5/5, 0/5 ankle Left Lower Extremity: Comparable with right LE Sensation: Intact light touch throughout all extremities Bed Mobility/Transfers: Sit to stand at walker, CG Stand to sit, CG Bed mobility can be evaluated later session, as patient was found sitting today, and encouraged him to remain out of bed. Gait: RW, leaning forward on forearms, close supervision, 20 feet. Unsteady gait, wide support, short stride length. Verbal cues required for safety. Balance: Static Sitting: Good Dynamic Sitting: Poor Static Standing: Poor Dynamic Standing: Poor Special Tests: Mobility Limitations Standardized Measure [facility] AM-PAC 6 clicks Basic Mobility Inpatient Short Form: Raw Score: 16 standardized Score: 54% Stage IV balance test: Fails to stage I Informed Consent/Education: Patient instructed in purpose of PT consult and plan of care. Assessment: Patient is a 80 year old male referred to physical therapy services with the diagnosis of s/p sepsis related to strep infection status post toe amputation, in the setting of CHF, pleural effusion, and above documented comorbidities. Patient presents with clinical signs and symptoms consistent with referred diagnosis, as demonstrated by the following impairment level findings: Global weakness, poor balance, poor proprioception related to chronic neuropathy of the lower extremities and acute left toe amputation, and chronic pain through the right buttock status post cancer limiting ability to stand up tall. Impairments are contributing to the following functional limitations: AMPAC score, of 54% disability, contact-guard with transfer activities, limited tolerance to ambulation, unsteady with ambulation and transfers, high fall risk. Requires skilled PT intervention to attend the above impairments and functional rotations to return home. Patient will require referral for outpatient therapy upon discharge, to reestablish overall strength and improved physical condition comparable to premorbid level of function. Patient is assessed as a High 28872 complexity based on the following: History: See comorbidities Examination: See above impairments and functional limitations Presentation: Evolving Decision Making: Moderate Goals: Goals X1 week 1. Supine-Sit independent 2. Sit-Supine independent 3. Sit-Stand independent 4. Stand-Sit independent 5. Bed-Chair supervision with walker 6. Chair-Bed supervision with walker 7. Gait 40 feet with walker, supervision 8. Independent with home exercise program 9. Balance, fair static weightbearing balance with walker, as demonstrated by ability to ambulate with distant supervision. Due to lower extremity neuropathy, unrealistic to expect anything without assistive device. Plan of Care/Treatment Plan: 1-2x/day, 7 days/week x 1 week. Plan of care has been reviewed with the FLIGHT TEST SUPERVISOR providing the service under Physical Therapy direction. Initiate Physical Therapy intervention for strengthening, bed mobility, transfers, gait, stairs, balance training, use of assistive device. DISCHARGE RECOMMENDATIONS: Home with , and patient physical therapy referral TREATMENT CODE/TIME: 30 minutes, [id number]
[2020-05-17 11:25] VITALS: BP 159/65; PULSE 18; RESP 18; TEMP 36.9; O2SAT 96
--- NOTE | 2020-05-17 15:33 | PGE_ITS ---
Date of Service Date of service: 05/17/20 Time of Service: 15:33 Assessment and Plan Assessment and plan (1) Group G streptococcal infection: Status: Acute Assessment and plan: Sepsis on admission - resolved. Source - L foot wound infection/dehiscence associated with chronic osteo post debridement on 04/03/2020. Repeat blood cultures on 05/14/2020 - 1 bottle positive for staph (not aurereus, likely contaminant). Blood cultures from this am pending. Case discussed with [facility] ID - recommended switching to cefepime 2 grams IV Q 8 hrs x 4 weeks from 1st negative blood culture (05/14). Cefepime will cover the foot wound as well as bacteremia. Echo without valvular pathology (transthoracic). Care management is addressing whether cefepime can be given at home. (2) Chronic wound of extremity: Status: Acute Assessment and plan: As above. Continue wound vac. (3) Respiratory failure with hypoxia and hypercapnia: Status: Resolved Assessment and plan: Tolerating/doing well with Trilogy here, which he is being prescribed on discharge. Qualifiers: Chronicity: acute on chronic Qualified Code(s): J96.21 - Acute and chronic respiratory failure with hypoxia; J96.22 - Acute and chronic respiratory failure with hypercapnia (4) Obstructive sleep apnea: Status: Suspected Assessment and plan: Continue trilogy as above (5) Pulmonary hypertension: Status: Acute Assessment and plan: Agree that he would benefit from referral to pulmo nology on discharge. (6) Hypoventilation associated with obesity: Status: Acute Assessment and plan: Continue trilogy. (7) Acute congestive heart failure: Status: Suspected Assessment and plan: Tolerating PO lasix. Continue to monitor I/Os and daily weights. Qualifiers: Heart failure type: unspecified Qualified Code(s): I50.9 - Heart failure, unspecified (8) Bone metastases: Status: Acute Assessment and plan: [facility] oncology recommends holding lynparza during acute illness. (9) Anemia: Status: Chronic Assessment and plan: s/p transfusion of 1 unit of pRBCS. Agree that anemia is likely multifactorial - of chronic disease as well as dilutional. Heme + x 1, but negative x 2 today. I feel comfortable continuing lovenox. Qualifiers: Anemia type: unspecified type Qualified Code(s): D64.9 - Anemia, unspecified (10) DVT prophylaxis: Status: Acute Assessment and plan: Continue lovenox (11) Discharge planning issues: Status: Acute Assessment and plan: Hoping to be able to discharge the patient home with a PICC if cefepime can be administered at home. Subjective Subjective Interval history since last seen: Feels well today. Denies dizziness, chest pain, shortness of breath, nausea, vomiting. Heme + stools yesterday x 1, but heme negative x 2 today. Exam Narrative Exam Narrative: General: Very pleasant elderly male, A&Ox3, looks well HEENT: EOMI, MMM Heart: RRR, no m/r/g Lungs: CTAB/diminished B Abdomen: soft, nontender, nondsitended Extremities: L foot wound with wound vac, dressed, c/d/i, +1 BLE edema Objective Objective Clinical Data: Abnormal lab results 05/17/20 05/17/20 Range/Units 07:00 07:00 WBC 2.80 L (4.4-10.8) k/cumm RBC 2.20 L (4.50-6.00) m/cumm Hgb 8.3 L (13.5-17.5) g/dL Hct 25.8 L (40.0-50.0) % MCV 117.3 H (80-95) fL MCH 37.7 H (27.0-33.0) pg RDW 21.4 H (11.8-14.1) % Absolute Lymphocytes 0.77 L (1.2-3.4) k/cumm Carbon Dioxide 37.5 H (21.0-32.0) mmol/L Anion Gap 0.5 L (3-11) mmol/L Glucose 112 H (74-106) mg/dL C-Reactive Protein 2.21 H (0.0-0.3) mg/dL Vital Signs Temperature 36.9 C 05/17/20 11:25 Temperature Source Tympanic 05/17/20 11:25 Pulse 18 L 05/17/20 11:25 Pulse Rhythm Regular 05/17/20 08:13 Pulse 59 L 05/15/20 09:04 Respiratory Rate 18 05/17/20 11:25 Respiratory Effort Non-Labored 05/17/20 08:13 Respiratory Depth Normal 05/17/20 08:13 Respiratory Pattern Normal 05/17/20 08:13 Blood Pressure 159/65 H 05/17/20 11:25 Blood Pressure Mean 107 05/15/20 09:04 Blood Pressure Position Sitting 05/15/20 08:00 Pulse Oximetry 96 05/17/20 11:25 Oxygen Delivery Method Nasal Cannula 05/17/20 11:25 Oxygen Flow Rate 2 05/17/20 11:25 Fraction of Inspired Oxygen (FIO2) 30 05/14/20 11:53 Pain Level 0 05/17/20 11:25 Comment 05/15/20 23:32 Intake & Output 05/16/20 05/17/20 05/17/20 23:59 11:59 23:59 Intake Total 700 / 1510 300 / 300 Output Total 2250 / 3525 850 / 1800 950 / 1800 Balance -1550 / -2015 -550 / -1500 -950 / -1500 Intake: IV 450 / 760 300 / 300 Oral 250 / 750 Output: Urine 2250 / 3525 850 / 1800 950 / 1800 Other: Urine Color Yellow Yellow Pale Urine Appearance Clear Clear Clear Urine Odor Strong Stool Occult Blood Negative Negative Stool Size Small Small Small Stool Characteristics Liquid Soft Soft Brown Brown Formed Green Voiding Methods Indwelling Catheter Laboratory Results WBC 2.80 k/cumm (4.4-10.8) L 05/17/20 07:00 RBC 2.20 m/cumm (4.50-6.00) L 05/17/20 07:00 Hgb 8.3 g/dL (13.5-17.5) L 05/17/20 07:00 Hct 25.8 % (40.0-50.0) L 05/17/20 07:00 MCV 117.3 fL (80-95) H 05/17/20 07:00 MCH 37.7 pg (27.0-33.0) H 05/17/20 07:00 MCHC 32.2 g/dL (32.0-36.0) 05/17/20 07:00 RDW 21.4 % (11.8-14.1) H 05/17/20 07:00 Plt Count 220 x1000/uL (130-400) 05/17/20 07:00 MPV 9.9 fL (8.0-11.0) 05/17/20 07:00 Immature Gran % 0.7 % 05/17/20 07:00 Neutrophils % 55.8 05/17/20 07:00 Lymphocytes % 27.5 05/17/20 07:00 Atypical Lymphs % 1 05/13/20 06:30 Monocytes % 13.9 05/17/20 07:00 Eosinophils % 1.4 05/17/20 07:00 Basophils % 0.7 05/17/20 07:00 Absolute Neutrophils 1.56 k/cumm (1.2-6.7) 05/17/20 07:00 Absolute Lymphocytes 0.77 k/cumm (1.2-3.4) L 05/17/20 07:00 Absolute Monocytes 0.39 k/cumm (0.11-0.7) 05/17/20 07:00 Absolute Eosinophils 0.04 k/cumm (0.0-0.7) 05/17/20 07:00 Absolute Basophils 0.02 k/cumm (0.0-0.2) 05/17/20 07:00 Differential Comment Rbc morph reviewed 05/16/20 07:05 RBC Morphology See below 05/16/20 07:05 Polychromasia Present 05/16/20 07:05 Hypochromasia 1+ 05/16/20 07:05 Poikilocytosis 1+ 05/16/20 07:05 Basophilic Stippling Present 05/14/20 05:30 Anisocytosis 2+ 05/16/20 07:05 Microcytosis 1+ 05/16/20 07:05 Macrocytosis 2+ 05/16/20 07:05 PT 11.8 sec (9.3-11.0) H 05/13/20 09:35 INR 1.2 (0.9-1.1) H 05/13/20 09:35 APTT 32.3 sec (21.0-31.4) H 05/13/20 09:35 D-Dimer 944 ng/mlFEU (<500) H 05/14/20 06:40 ABG Sample Site Right radial 05/14/20 08:00 ABG pH 7.37 (7.35-7.45) 05/14/20 08:00 ABG pCO2 60 mmHg (34-47) H 05/14/20 08:00 ABG pO2 78 mmHg (83-108) L 05/14/20 08:00 ABG HCO3 34 mmol/L (22-28) H 05/14/20 08:00 ABG Total CO2 33 mmol/L (22-29) H 05/14/20 08:00 ABG O2 Saturation 96 % (94-98) 05/14/20 08:00 ABG Base Excess 8.8 mmol/L (-3-3) H 05/14/20 08:00 VBG pH 7.35 (7.35-7.45) 05/15/20 06:40 VBG pCO2 70 mm/Hg (34-47) H* 05/15/20 06:40 VBG pO2 43 mm/Hg (28-44) 05/15/20 06:40 VBG HCO3 38 mmol/L (22-28) H 05/15/20 06:40 VBG Total CO2 37 mmol/L (22-29) H 05/15/20 06:40 VBG O2 Saturation 78 % (70-80) 05/15/20 06:40 VBG Base Excess 12.4 mmol/L (-3-3) H 05/15/20 06:40 Oxygen Liter Flow 5 bleed in L 05/14/20 05:45 FiO2 30 % 05/14/20 08:00 Sodium 142 mmol/L (136-145) 05/17/20 07:00 Potassium 4.7 mmol/L (3.5-5.1) 05/17/20 07:00 Chloride 104 mmol/L (98-107) 05/17/20 07:00 Carbon Dioxide 37.5 mmol/L (21.0-32.0) H 05/17/20 07:00 Anion Gap 0.5 mmol/L (3-11) L 05/17/20 07:00 BUN 16 mg/dL (7-18) 05/17/20 07:00 Creatinine 0.93 mg/dL (0.70-1.30) 05/17/20 07:00 Estimated GFR/1.73 m2 >= 60.00 (mL/min/1.73m2) 05/17/20 07:00 Glucose 112 mg/dL (74-106) H 05/17/20 07:00 Lactate 0.6 mmol/L (0.6-1.4) 05/15/20 06:40 Calcium 8.7 mg/dL (8.5-10.1) 05/17/20 07:00 Magnesium 2.0 mg/dL (1.8-2.4) 05/17/20 07:00 Iron Cancelled 05/14/20 12:04 Ferritin 266 ng/mL (26-388) 05/13/20 06:30 Total Bilirubin 0.2 mg/dL (0.2-1.0) 05/13/20 06:30 AST 33 U/L (15-37) 05/13/20 06:30 ALT 41 U/L (16-63) 05/13/20 06:30 Alkaline Phosphatase 65 U/L (46-116) 05/13/20 06:30 Ammonia 32 umol/L (11-32) 05/12/20 00:25 Lactate Dehydrogenase 234 U/L (85-227) H 05/12/20 00:25 Troponin I < 0.05 ng/mL (<0.06) 05/14/20 05:30 C-Reactive Protein 2.21 mg/dL (0.0-0.3) H 05/17/20 07:00 NT-Pro-B Natriuret Pep 1641 pg/mL (<300) H 05/16/20 07:05 Total Protein 5.8 g/dL (6.4-8.2) L 05/13/20 06:30 Albumin 2.6 g/dL (3.4-5.0) L 05/13/20 06:30 Vitamin B12 437 pg/mL (193-986) 05/12/20 06:45 Folate 19.9 ng/mL (8.6-20.0) 05/12/20 06:45 Procalcitonin 2.5 ng/mL 05/15/20 06:40 Urine Color Yellow (Yellow) 05/12/20 00:52 Urine Clarity Clear (Clear) 05/12/20 00:52 Urine pH 7.0 (5-8) 05/12/20 00:52 Ur Specific [place] 1.020 (1.005-1.025) 05/12/20 00:52 Urine Protein 30 mg/dL (Negative) H 05/12/20 00:52 Urine Ketones Negative mg/dL (Negative) 05/12/20 00:52 Urine Blood Negative (Negative) 05/12/20 00:52 Urine Nitrite Negative (Negative) 05/12/20 00:52 Urine Bilirubin Negative (Negative) 05/12/20 00:52 Urine Urobilinogen 0.2 EU/dL (Up TO 0.2) 05/12/20 00:52 Ur Leukocyte Esterase Negative (Negative) 05/12/20 00:52 Urine RBC Negative HPF (0-2) 05/12/20 00:52 Urine WBC Negative HPF (0-5) 05/12/20 00:52 Ur Epithelial Cells Negative HPF (Negative) 05/12/20 00:52 Urine Crystals Negative HPF (Negative) 05/12/20 00:52 Urine Bacteria Negative HPF (Negative) 05/12/20 00:52 Urine Casts Negative LPF (Negative) 05/12/20 00:52 Urine Mucus Trace (Negative) 05/12/20 00:52 Ur Culture Indicated? No 05/12/20 00:52 Urine Glucose Negative mg/dL (Negative) 05/12/20 00:52 COVID-19 PCR Negative (Negative) 05/12/20 00:32 Nasopharyn COVID-19 PCR Not Applicable 05/12/20 00:32 Ref Test Perform Site [facility] lab 05/12/20 00:32 Patient ABO/Rh O Positive 05/13/20 09:35 Antibody Screen Negative 05/13/20 09:35 Crossmatch See Detail 05/13/20 09:35
[2020-05-17 15:35] VITALS: BP 154/56; PULSE 68; RESP 19; TEMP 36.7; O2SAT 92
[2020-05-17 20:10] VITALS: BP 134/57; PULSE 60; RESP 18; TEMP 36.7; O2SAT 96
[2020-05-17] MEDS: Enoxaparin 40 MG/0.4 ML SYR SC (20:24)
[2020-05-17 22:35] VITALS: BP 162/66; PULSE 62; RESP 18; TEMP 36.6; O2SAT 98
[2020-05-18 03:50] VITALS: BP 158/72; PULSE 64; RESP 18; TEMP 36.8; O2SAT 96
[2020-05-18] MEDS: CEFEPIME 2 GM in Normal Saline 100 ML IVPB ×3 (06:42→22:03)
[2020-05-18] MEDS: Normal Saline Flush 10 ML SYR IVP ×2 (06:42→22:03)
[2020-05-18 07:07] LABS: Absolute Basophil Count 0.01 k/cumm (0.0-0.2); Absolute Eosinophil Count 0.04 k/cumm (0.0-0.7); Absolute Lymphocyte Count 0.73 k/cumm (1.2-3.4); Absolute Monocyte Count 0.45 k/cumm (0.11-0.7); Absolute Neutrophil Count 1.77 k/cumm (1.2-6.7); Basophils % 0.3; Eosinophils % 1.3; HCT 26.4 % (40.0-50.0); HGB 8.2 g/dL (13.5-17.5); Lymphocytes % 24.3; Mean Corp. HGB Concentration 31.1 g/dL (32.0-36.0); Mean Corpuscular Hemoglobin 36.3 pg (27.0-33.0); Mean Corpuscular Volume 116.8 fL (80-95); Mean Platelet Volume 10.3 fL (8.0-11.0); Neutrophils % 59.1; Platelet Count 256 x1000/uL (130-400); RBC 2.26 m/cumm (4.50-6.00); RBC Distribution Width 21.1 % (11.8-14.1)
[2020-05-18 07:12] LABS: Anion Gap 0.5 mmol/L (3-11); BUN 18 mg/dL (7-18); C-Reactive Protein 1.63 mg/dL (0.0-0.3); CO2 38.5 mmol/L (21.0-32.0); CREATININE 1.03 mg/dL (0.70-1.30); Calcium 8.9 mg/dL (8.5-10.1); Chloride 102 mmol/L (98-107); Glucose 126 mg/dL (74-106); Magnesium 2.1 mg/dL (1.8-2.4); Potassium 4.6 mmol/L (3.5-5.1); Sodium 141 mmol/L (136-145)
[2020-05-18 07:24] LABS: Anisocytosis 3+; Diff Comment RBC Morph Reviewed; Hypochromasia 1+; Macrocytosis 2+
--- NOTE | 2020-05-18 07:24 | PGE_ITS ---
Date of Service Date of service: 05/18/20 Time of Service: 07:24 Subjective Subjective Patient reports: no new complaints and feels better Interval history since last seen: Manjit is moved from the ICU onto the medical surge floor. He is seen in his room sitting in his chair. He indicates he is feeling much better since his admission. He has no complaints of pain in his left foot. Exam Narrative Exam Narrative: The wound VAC is removed from his left foot. The wound measures 0.8 cm in length by 0.3 cm in width but still tracks deeply towards his second metatarsal head. The foot appears pink and warm and the hand-held Doppler reveals audible dorsalis pedis and posterior tibial arteries with a monophasic quality. The wound edges are pink and there is no sign of necrosis. There is no active signs of infection. The wound VAC had minimal drainage on the tubing prior to its removal. Morning labs are pending. Dr. Brown in coordination with ID from [facility] after reviewing the microorganisms from his blood and wound has transitioned Manjit onto Cefepime 2 g every 8 H IV. 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 I will begin quarter inch Nu Gauze packing every 12h. I will discuss the case with the hospitalist and see if we can get a vascular consult. Objective Objective Clinical Data: Abnormal lab results 05/17/20 05/17/20 05/18/20 Range/Units 07:00 07:00 06:35 WBC 2.80 L (4.4-10.8) k/cumm RBC 2.20 L (4.50-6.00) m/cumm Hgb 8.3 L (13.5-17.5) g/dL Hct 25.8 L (40.0-50.0) % MCV 117.3 H (80-95) fL MCH 37.7 H (27.0-33.0) pg RDW 21.4 H (11.8-14.1) % Absolute Lymphocytes 0.77 L (1.2-3.4) k/cumm Carbon Dioxide 37.5 H 38.5 H (21.0-32.0) mmol/L Anion Gap 0.5 L 0.5 L (3-11) mmol/L Glucose 112 H 126 H (74-106) mg/dL C-Reactive Protein 2.21 H 1.63 H (0.0-0.3) mg/dL Vital Signs Temperature 36.8 C 05/18/20 03:50 Temperature Source Tympanic 05/18/20 03:50 Pulse 64 05/18/20 03:50 Pulse Rhythm Regular 05/18/20 01:26 Pulse 59 L 05/15/20 09:04 Respiratory Rate 18 05/18/20 03:50 Respiratory Effort Non-Labored 05/18/20 01:26 Respiratory Depth Normal 05/18/20 01:26 Respiratory Pattern Normal 05/18/20 01:26 Blood Pressure 158/72 H 05/18/20 03:50 Blood Pressure Mean 107 05/15/20 09:04 Blood Pressure Position Sitting 05/15/20 08:00 Pulse Oximetry 96 05/18/20 03:50 Oxygen Delivery Method Nasal Cannula 05/18/20 03:50 Oxygen Flow Rate 2 05/18/20 03:50 Fraction of Inspired Oxygen (FIO2) 30 05/14/20 11:53 Pain Level 0 05/18/20 03:50 Comment 05/18/20 03:50 Intake & Output 05/17/20 05/18/20 05/18/20 18:59 06:59 18:59 Intake Total 550 / 650 100 / 650 Output Total 1999 Balance -1450 / -1387 63 / -1387 Weight 92.7 kg Intake: IV 300 / 400 100 / 400 Oral 250 / 250 Output: Urine 1999 Other: Urine Color Yellow Yellow Urine Appearance Clear Clear Urine Odor Strong Normal Comment Very small amount lg inct in brief, lg volume on floor, approx 100 mL in comode- mixed with stool. Stool Occult Blood Negative Positive Stool Size Smear Small Stool Characteristics Liquid Soft Brown Voiding Methods Bedside Commode Diaper Incontinent Laboratory Results WBC 2.80 k/cumm (4.4-10.8) L 05/17/20 07:00 RBC 2.20 m/cumm (4.50-6.00) L 05/17/20 07:00 Hgb 8.3 g/dL (13.5-17.5) L 05/17/20 07:00 Hct 25.8 % (40.0-50.0) L 05/17/20 07:00 MCV 117.3 fL (80-95) H 05/17/20 07:00 MCH 37.7 pg (27.0-33.0) H 05/17/20 07:00 MCHC 32.2 g/dL (32.0-36.0) 05/17/20 07:00 RDW 21.4 % (11.8-14.1) H 05/17/20 07:00 Plt Count 220 x1000/uL (130-400) 05/17/20 07:00 MPV 9.9 fL (8.0-11.0) 05/17/20 07:00 Immature Gran % 0.7 % 05/17/20 07:00 Neutrophils % 55.8 05/17/20 07:00 Lymphocytes % 27.5 05/17/20 07:00 Atypical Lymphs % 1 05/13/20 06:30 Monocytes % 13.9 05/17/20 07:00 Eosinophils % 1.4 05/17/20 07:00 Basophils % 0.7 05/17/20 07:00 Absolute Neutrophils 1.56 k/cumm (1.2-6.7) 05/17/20 07:00 Absolute Lymphocytes 0.77 k/cumm (1.2-3.4) L 05/17/20 07:00 Absolute Monocytes 0.39 k/cumm (0.11-0.7) 05/17/20 07:00 Absolute Eosinophils 0.04 k/cumm (0.0-0.7) 05/17/20 07:00 Absolute Basophils 0.02 k/cumm (0.0-0.2) 05/17/20 07:00 Differential Comment Rbc morph reviewed 05/16/20 07:05 RBC Morphology See below 05/16/20 07:05 Polychromasia Present 05/16/20 07:05 Hypochromasia 1+ 05/16/20 07:05 Poikilocytosis 1+ 05/16/20 07:05 Basophilic Stippling Present 05/14/20 05:30 Anisocytosis 2+ 05/16/20 07:05 Microcytosis 1+ 05/16/20 07:05 Macrocytosis 2+ 05/16/20 07:05 PT 11.8 sec (9.3-11.0) H 05/13/20 09:35 INR 1.2 (0.9-1.1) H 05/13/20 09:35 APTT 32.3 sec (21.0-31.4) H 05/13/20 09:35 D-Dimer 944 ng/mlFEU (<500) H 05/14/20 06:40 ABG Sample Site Right radial 05/14/20 08:00 ABG pH 7.37 (7.35-7.45) 05/14/20 08:00 ABG pCO2 60 mmHg (34-47) H 05/14/20 08:00 ABG pO2 78 mmHg (83-108) L 05/14/20 08:00 ABG HCO3 34 mmol/L (22-28) H 05/14/20 08:00 ABG Total CO2 33 mmol/L (22-29) H 05/14/20 08:00 ABG O2 Saturation 96 % (94-98) 05/14/20 08:00 ABG Base Excess 8.8 mmol/L (-3-3) H 05/14/20 08:00 VBG pH 7.35 (7.35-7.45) 05/15/20 06:40 VBG pCO2 70 mm/Hg (34-47) H* 05/15/20 06:40 VBG pO2 43 mm/Hg (28-44) 05/15/20 06:40 VBG HCO3 38 mmol/L (22-28) H 05/15/20 06:40 VBG Total CO2 37 mmol/L (22-29) H 05/15/20 06:40 VBG O2 Saturation 78 % (70-80) 05/15/20 06:40 VBG Base Excess 12.4 mmol/L (-3-3) H 05/15/20 06:40 Oxygen Liter Flow 5 bleed in L 05/14/20 05:45 FiO2 30 % 05/14/20 08:00 Sodium 141 mmol/L (136-145) 05/18/20 06:35 Potassium 4.6 mmol/L (3.5-5.1) 05/18/20 06:35 Chloride 102 mmol/L (98-107) 05/18/20 06:35 Carbon Dioxide 38.5 mmol/L (21.0-32.0) H 05/18/20 06:35 Anion Gap 0.5 mmol/L (3-11) L 05/18/20 06:35 BUN 18 mg/dL (7-18) 05/18/20 06:35 Creatinine 1.03 mg/dL (0.70-1.30) 05/18/20 06:35 Estimated GFR/1.73 m2 >= 60.00 (mL/min/1.73m2) 05/18/20 06:35 Glucose 126 mg/dL (74-106) H 05/18/20 06:35 Lactate 0.6 mmol/L (0.6-1.4) 05/15/20 06:40 Calcium 8.9 mg/dL (8.5-10.1) 05/18/20 06:35 Magnesium 2.1 mg/dL (1.8-2.4) 05/18/20 06:35 Iron Cancelled 05/14/20 12:04 Ferritin 266 ng/mL (26-388) 05/13/20 06:30 Total Bilirubin 0.2 mg/dL (0.2-1.0) 05/13/20 06:30 AST 33 U/L (15-37) 05/13/20 06:30 ALT 41 U/L (16-63) 05/13/20 06:30 Alkaline Phosphatase 65 U/L (46-116) 05/13/20 06:30 Ammonia 32 umol/L (11-32) 05/12/20 00:25 Lactate Dehydrogenase 234 U/L (85-227) H 05/12/20 00:25 Troponin I < 0.05 ng/mL (<0.06) 05/14/20 05:30 C-Reactive Protein 1.63 mg/dL (0.0-0.3) H 05/18/20 06:35 NT-Pro-B Natriuret Pep 1641 pg/mL (<300) H 05/16/20 07:05 Total Protein 5.8 g/dL (6.4-8.2) L 05/13/20 06:30 Albumin 2.6 g/dL (3.4-5.0) L 05/13/20 06:30 Vitamin B12 437 pg/mL (193-986) 05/12/20 06:45 Folate 19.9 ng/mL (8.6-20.0) 05/12/20 06:45 Procalcitonin 2.5 ng/mL 05/15/20 06:40 Urine Color Yellow (Yellow) 05/12/20 00:52 Urine Clarity Clear (Clear) 05/12/20 00:52 Urine pH 7.0 (5-8) 05/12/20 00:52 Ur Specific [place] 1.020 (1.005-1.025) 05/12/20 00:52 Urine Protein 30 mg/dL (Negative) H 05/12/20 00:52 Urine Ketones Negative mg/dL (Negative) 05/12/20 00:52 Urine Blood Negative (Negative) 05/12/20 00:52 Urine Nitrite Negative (Negative) 05/12/20 00:52 Urine Bilirubin Negative (Negative) 05/12/20 00:52 Urine Urobilinogen 0.2 EU/dL (Up TO 0.2) 07 00:52 Ur Leukocyte Esterase Negative (Negative) 05/12/20 00:52 Urine RBC Negative HPF (0-2) 05/12/20 00:52 Urine WBC Negative HPF (0-5) 05/12/20 00:52 Ur Epithelial Cells Negative HPF (Negative) 05/12/20 00:52 Urine Crystals Negative HPF (Negative) 05/12/20 00:52 Urine Bacteria Negative HPF (Negative) 05/12/20 00:52 Urine Casts Negative LPF (Negative) 05/12/20 00:52 Urine Mucus Trace (Negative) 05/12/20 00:52 Ur Culture Indicated? No 05/12/20 00:52 Urine Glucose Negative mg/dL (Negative) 05/12/20 00:52 COVID-19 PCR Negative (Negative) 05/12/20 00:32 Nasopharyn COVID-19 PCR Not Applicable 05/12/20 00:32 Ref Test Perform Site [facility] lab 05/12/20 00:32 Patient ABO/Rh O Positive 05/13/20 09:35 Antibody Screen Negative 05/13/20 09:35 Crossmatch See Detail 05/13/20 09:35
[2020-05-18 07:25] LABS: Polychromasia Present
[2020-05-18 07:40] VITALS: BP 151/64; PULSE 66; RESP 19; TEMP 37; O2SAT 94
[2020-05-18 08:01] LABS: Procalcitonin 0.5 ng/mL
[2020-05-18] MEDS: Furosemide 40 MG TAB PO ×2 (08:05→15:45)
[2020-05-18] MEDS: Zinc Sulfate 220 MG TAB PO (08:06)
[2020-05-18] MEDS: Multivitamin TAB 1 TAB PO (08:06)
[2020-05-18] MEDS: Pantoprazole 40 MG TABCR PO (08:06)
[2020-05-18] MEDS: Gabapentin 600 MG TAB PO ×3 (08:06→19:37)
[2020-05-18] MEDS: Potassium Chloride 20 MEQ TABCR PO ×2 (08:06→19:37)
[2020-05-18] MEDS: Lisinopril 10 MG TAB PO (08:06)
[2020-05-18] MEDS: Metoprolol CR 100 MG TABCR PO (08:06)
[2020-05-18 11:10] VITALS: BP 153/68; PULSE 83; RESP 18; TEMP 37.3; O2SAT 96
--- NOTE | 2020-05-18 11:36 | PGE_ITS ---
Date of Service Date of service: 05/18/20 Time of Service: 11:37 Assessment and Plan Assessment and plan (1) Group G streptococcal infection: Status: Acute Assessment and plan: Sepsis on admission - resolved. Source - L foot wound infection/dehiscence associated with chronic osteo post debridement on 04/03/2020. There may also be a component of PAD - checking ABIs today and will arrange for vascular follow up, be that as outpatient if patient gets discharged home with home health abx or [id number] trip to [facility] if has to stay here for Swing bed abx. Will order a PICC line as blood cultures from 05/16/2020 are negative. Staph hominis on blood cx from 05/14/2020 is likely a contaminant. CRP continues to improve on cefepime alone, recommended by ID at [facility] x 4 weeks. Echo without valvular pathology (transthoracic). Care management is addressing whether cefepime can be given at home. (2) Chronic wound of extremity: Status: Acute Assessment and plan: As above. Wound vac d/c'ed. Arranging vascular referral. Continue abx, wound care. Check ABIs. (3) Respiratory failure with hypoxia and hypercapnia: Status: Resolved Assessment and plan: Tolerating/doing well with Trilogy here, which he is being prescribed on discharge. Qualifiers: Chronicity: acute on chronic Qualified Code(s): J96.21 - Acute and chronic respiratory failure with hypoxia; J96.22 - Acute and chronic respiratory failure with hypercapnia (4) Obstructive sleep apnea: Status: Suspected Assessment and plan: Continue trilogy as above (5) Pulmonary hypertension: Status: Acute Assessment and plan: Agree that he would benefit from referral to pulmonol olga on discharge. (6) Hypoventilation associated with obesity: Status: Acute Assessment and plan: Continue trilogy. (7) Acute congestive heart failure: Status: Suspected Assessment and plan: Tolerating PO lasix. Continue to monitor I/Os and daily weights. Qualifiers: Heart failure type: unspecified Qualified Code(s): I50.9 - Heart failure, unspecified (8) Bone metastases: Status: Acute Assessment and plan: [facility] oncology recommends holding lynparza during acute illness. (9) Anemia: Status: Chronic Assessment and plan: s/p transfusion of 1 unit of pRBCS. Agree that anemia is likely multifactorial - of chronic disease as well as dilutional. Heme + x 1, but negative since. Continue lovenox. Qualifiers: Anemia type: unspecified type Qualified Code(s): D64.9 - Anemia, unspecified (10) DVT prophylaxis: Status: Acute Assessment and plan: Continue lovenox (11) Discharge planning issues: Status: Acute Assessment and plan: Hoping to be able to discharge the patient home with a PICC if cefepime can be administered at home. Subjective Subjective Interval history since last seen: Mr Adrian states he is feeling well. He denies dizziness, chest pain, shortness of breath, nausea. He does report discomfort in left foot. His wound vac was taken off today, and new dressing recommendations were made. He is recommended by Dr Briceno to see vascular surgery in non-emergent fashion. Exam Narrative Exam Narrative: General: Very pleasant elderly male, A&Ox3, looks well HEENT: EOMI, MMM Heart: RRR, no m/r/g Lungs: CTAB/diminished B Abdomen: soft, nontender, nondsitended Extremities: L foot dressed, c/d/i, +1 LLE edema, trace RLE edema Objective Objective Clinical Data: Abnormal lab results 05/18/20 05/18/20 Range/Units 06:35 06:35 WBC 3.00 L (4.4-10.8) k/cumm RBC 2.26 L (4.50-6.00) m/cumm Hgb 8.2 L (13.5-17.5) g/dL Hct 26.4 L (40.0-50.0) % MCV 116.8 H (80-95) fL MCH 36.3 H (27.0-33.0) pg MCHC 31.1 L (32.0-36.0) g/dL RDW 21.1 H (11.8-14.1) % Absolute Lymphocytes 0.73 L (1.2-3.4) k/cumm Carbon Dioxide 38.5 H (21.0-32.0) mmol/L Anion Gap 0.5 L (3-11) mmol/L Glucose 126 H (74-106) mg/dL C-Reactive Protein 1.63 H (0.0-0.3) mg/dL Vital Signs Temperature 37.3 C 05/18/20 11:10 Temperature Source Tympanic 05/18/20 11:10 Pulse 83 05/18/20 11:10 Pulse Rhythm Regular 05/18/20 08:28 Pulse 59 L 05/15/20 09:04 Respiratory Rate 18 05/18/20 11:10 Respiratory Effort Non-Labored 05/18/20 08:28 Respiratory Depth Normal 05/18/20 08:28 Respiratory Pattern Normal 05/18/20 08:28 Blood Pressure 153/68 H 05/18/20 11:10 Blood Pressure Mean 107 05/15/20 09:04 Blood Pressure Position Sitting 05/15/20 08:00 Pulse Oximetry 96 05/18/20 11:10 Oxygen Delivery Method Nasal Cannula 05/18/20 11:10 Oxygen Flow Rate 1.5 05/18/20 11:10 Fraction of Inspired Oxygen (FIO2) 30 05/14/20 11:53 Pain Level 0 05/18/20 11:10 Comment 05/18/20 03:50 Intake & Output 05/17/20 05/17/20 05/18/20 11:59 23:59 11:59 Intake Total 550 / 750 200 / 750 100 / 100 Output Total 850 / 2000 1150 / 2000 37 / 37 Balance -300 / -1250 -950 / -1250 63 / 63 Weight 92.7 kg Intake: IV 300 / 500 200 / 500 100 / 100 Oral 250 / 250 Output: Urine 850 / 2000 1150 / 2000 37 / 37 Other: Urine Color Yellow Yellow Yellow Urine Appearance Clear Clear Clear Urine Odor Strong Normal Comment lg inct mixed with stool unable to measure Stool Occult Blood Negative Negative Negative Stool Size Small Small Small Stool Characteristics Soft Soft Soft Brown Brown Voiding Methods Indwelling Catheter Diaper Incontinent Laboratory Results WBC 3.00 k/cumm (4.4-10.8) L 05/18/20 06:35 RBC 2.26 m/cumm (4.50-6.00) L 05/18/20 06:35 Hgb 8.2 g/dL (13.5-17.5) L 05/18/20 06:35 Hct 26.4 % (40.0-50.0) L 05/18/20 06:35 MCV 116.8 fL (80-95) H 05/18/20 06:35 MCH 36.3 pg (27.0-33.0) H 05/18/20 06:35 MCHC 31.1 g/dL (32.0-36.0) L 05/18/20 06:35 RDW 21.1 % (11.8-14.1) H 05/18/20 06:35 Plt Count 256 x1000/uL (130-400) 05/18/20 06:35 MPV 10.3 fL (8.0-11.0) 05/18/20 06:35 Immature Gran % 0.0 % 05/18/20 06:35 Neutrophils % 59.1 05/18/20 06:35 Lymphocytes % 24.3 05/18/20 06:35 Atypical Lymphs % 1 05/13/20 06:30 Monocytes % 15.0 05/18/20 06:35 Eosinophils % 1.3 05/18/20 06:35 Basophils % 0.3 05/18/20 06:35 Absolute Neutrophils 1.77 k/cumm (1.2-6.7) 05/18/20 06:35 Absolute Lymphocytes 0.73 k/cumm (1.2-3.4) L 05/18/20 06:35 Absolute Monocytes 0.45 k/cumm (0.11-0.7) 05/18/20 06:35 Absolute Eosinophils 0.04 k/cumm (0.0-0.7) 05/18/20 06:35 Absolute Basophils 0.01 k/cumm (0.0-0.2) 05/18/20 06:35 Differential Comment Rbc morph reviewed 05/18/20 06:35 RBC Morphology See below 05/18/20 06:35 Polychromasia Present 05/18/20 06:35 Hypochromasia 1+ 05/18/20 06:35 Poikilocytosis 1+ 05/16/20 07:05 Basophilic Stippling Present 05/14/20 05:30 Anisocytosis 3+ 05/18/20 06:35 Microcytosis 1+ 05/16/20 07:05 Macrocytosis 2+ 05/18/20 06:35 PT 11.8 sec (9.3-11.0) H 05/13/20 09:35 INR 1.2 (0.9-1.1) H 05/13/20 09:35 APTT 32.3 sec (21.0-31.4) H 05/13/20 09:35 D-Dimer 944 ng/mlFEU (<500) H 05/14/20 06:40 ABG Sample Site Right radial 05/14/20 08:00 ABG pH 7.37 (7.35-7.45) 05/14/20 08:00 ABG pCO2 60 mmHg (34-47) H 05/14/20 08:00 ABG pO2 78 mmHg (83-108) L 05/14/20 08:00 ABG HCO3 34 mmol/L (22-28) H 05/14/20 08:00 ABG Total CO2 33 mmol/L (22-29) H 05/14/20 08:00 ABG O2 Saturation 96 % (94-98) 05/14/20 08:00 ABG Base Excess 8.8 mmol/L (-3-3) H 05/14/20 08:00 VBG pH 7.35 (7.35-7.45) 05/15/20 06:40 VBG pCO2 70 mm/Hg (34-47) H* 05/15/20 06:40 VBG pO2 43 mm/Hg (28-44) 05/15/20 06:40 VBG HCO3 38 mmol/L (22-28) H 05/15/20 06:40 VBG Total CO2 37 mmol/L (22-29) H 05/15/20 06:40 VBG O2 Saturation 78 % (70-80) 05/15/20 06:40 VBG Base Excess 12.4 mmol/L (-3-3) H 05/15/20 06:40 Oxygen Liter Flow 5 bleed in L 05/14/20 05:45 FiO2 30 % 05/14/20 08:00 Sodium 141 mmol/L (136-145) 05/18/20 06:35 Potassium 4.6 mmol/L (3.5-5.1) 05/18/20 06:35 Chloride 102 mmol/L (98-107) 05/18/20 06:35 Carbon Dioxide 38.5 mmol/L (21.0-32.0) H 05/18/20 06:35 Anion Gap 0.5 mmol/L (3-11) L 05/18/20 06:35 BUN 18 mg/dL (7-18) 05/18/20 06:35 Creatinine 1.03 mg/dL (0.70-1.30) 05/18/20 06:35 Estimated GFR/1.73 m2 >= 60.00 (mL/min/1.73m2) 05/18/20 06:35 Glucose 126 mg/dL (74-106) H 05/18/20 06:35 Lactate 0.6 mmol/L (0.6-1.4) 05/15/20 06:40 Calcium 8.9 mg/dL (8.5-10.1) 05/18/20 06:35 Magnesium 2.1 mg/dL (1.8-2.4) 05/18/20 06:35 Iron Cancelled 05/14/20 12:04 Ferritin 266 ng/mL (26-388) 05/13/20 06:30 Total Bilirubin 0.2 mg/dL (0.2-1.0) 05/13/20 06:30 AST 33 U/L (15-37) 05/13/20 06:30 ALT 41 U/L (16-63) 05/13/20 06:30 Alkaline Phosphatase 65 U/L (46-116) 05/13/20 06:30 Ammonia 32 umol/L (11-32) 05/12/20 00:25 Lactate Dehydrogenase 234 U/L (85-227) H 05/12/20 00:25 Troponin I < 0.05 ng/mL (<0.06) 05/14/20 05:30 C-Reactive Protein 1.63 mg/dL (0.0-0.3) H 05/18/20 06:35 NT-Pro-B Natriuret Pep 1641 pg/mL (<300) H 05/16/20 07:05 Total Protein 5.8 g/dL (6.4-8.2) L 05/13/20 06:30 Albumin 2.6 g/dL (3.4-5.0) L 05/13/20 06:30 Vitamin B12 437 pg/mL (193-986) 05/12/20 06:45 Folate 19.9 ng/mL (8.6-20.0) 05/12/20 06:45 Procalcitonin 0.5 ng/mL 05/18/20 06:35 Urine Color Yellow (Yellow) 05/12/20 00:52 Urine Clarity Clear (Clear) 05/12/20 00:52 Urine pH 7.0 (5-8) 05/12/20 00:52 Ur Specific [place] 1.020 (1.005-1.025) 05/12/20 00:52 Urine Protein 30 mg/dL (Negative) H 05/12/20 00:52 Urine Ketones Negative mg/dL (Negative) 05/12/20 00:52 Urine Blood Negative (Negative) 05/12/20 00:52 Urine Nitrite Negative (Negative) 05/12/20 00:52 Urine Bilirubin Negative (Negative) 05/12/20 00:52 Urine Urobilinogen 0.2 EU/dL (Up TO 0.2) 05/12/20 00:52 Ur Leukocyte Esterase Negative (Negative) 05/12/20 00:52 Urine RBC Negative HPF (0-2) 05/12/20 00:52 Urine WBC Negative HPF (0-5) 05/12/20 00:52 Ur Epithelial Cells Negative HPF (Negative) 05/12/20 00:52 Urine Crystals Negative HPF (Negative) 05/12/20 00:52 Urine Bacteria Negative HPF (Negative) 05/12/20 00:52 Urine Casts Negative LPF (Negative) 05/12/20 00:52 Urine Mucus Trace (Negative) 05/12/20 00:52 Ur Culture Indicated? No 05/12/20 00:52 Urine Glucose Negative mg/dL (Negative) 05/12/20 00:52 COVID-19 PCR Negative (Negative) 05/12/20 00:32 Nasopharyn COVID-19 PCR Not Applicable 05/12/20 00:32 Ref Test Perform Site [facility] lab 05/12/20 00:32 Patient ABO/Rh O Positive 05/13/20 09:35 Antibody Screen Negative 05/13/20 09:35 Crossmatch See Detail 05/13/20 09:35
[2020-05-18 13:17] VITALS: BP 144/63; PULSE 69
--- NOTE | 2020-05-18 13:17 | PDOC.CMPRO ---
- If Service Date Differs Date of service: 05/18/20 Time of Service: 13:17 Care Management Progress Note S/O: Lester was sitting up in a chair when CM met with him and appeared to be in good spirits. Lester had his wound vac removed this morning and will go home with daily dressing changes performed by [facility]. Lester will also need 4 weeks of IV antibiotics at home. CM coordinated this with [facility] and [facility]. He will be discharged on Monday and services will be initiated at that time. He will have a PICC line placed tomorrow. A: Manjit is a 79 year old male admitted to [facility] on 05/12/20 with PNA with sepsis. P: Lester will return home with home health services for nursing and PT when medically cleared. He will require long-term IV antibiotics (4 weeks) . Cm coordinated home infusion therapy with [facility] and [facility]. The anticipated date of discharge is Monday. Lester will transport via private vehicle with his and follow up with his PCP. CM will continue to support patient, family and discharge planning needs.
[2020-05-18] MEDS: Acetaminophen 325 MG TAB PO ×2 (14:27→18:59)
[2020-05-18] MEDS: fentaNYL 50 MCG PATCH TD (14:27)
--- NOTE | 2020-05-18 15:01 | PT.INTREAT ---
Date of service: 05/18/20 Time of Service: 15:01 PT Notes Visit Reasons: Pneumonia Inpatient Physical Therapy Treatment Note [facility] Date: 05/18/2020 SUBJECTIVE: Lester states that he is not walking with me this am, and I dont feel that I have to explain myself to you. He refused PT in pm with a number of different excuses. These included no proper shoes, not his walker, neuropathy, cancer pain, and tired. His was in room and tried to encourage him but with any luck. OBJECTIVE: [] PAIN: Right leg pain BED MOBILITY/TRANSFERS THEREX: agreeable to a few seated exercises for global LE, see flowsheet for details. Refused ex in pm. ASSESSMENT: he was able to do his ex well. He did c/o increased right hip/leg pain with hip flex ex. I was unable to get him to stand or walk today, although he did walk with nurse into bathroom and back. PLAN: will check in with him in am. Continue PT POC> TREATMENT CODE/TIME: 15 min [id number]
[2020-05-18 15:55] VITALS: BP 179/70; PULSE 68; RESP 18; TEMP 37.3; O2SAT 96
--- NOTE | 2020-05-18 16:12 | CHAPLAIN ---
Manjit was talking with a family member on Facetime when I visited, so I spoke with his , introduced myself and offered support, and got her a cup of coffee.
[2020-05-18] MEDS: Enoxaparin 40 MG/0.4 ML SYR SC (19:37)
[2020-05-19] VITALS (7 sets, daily range): BP systolic 125–161; BP diastolic 58–74; PULSE 60–66; RESP 18–19; TEMP 36.7–37.3; O2SAT 95–99
[2020-05-19] MEDS: CEFEPIME 2 GM in Normal Saline 100 ML IVPB ×3 (06:05→21:37)
[2020-05-19] MEDS: Normal Saline Flush 10 ML SYR IVP ×2 (06:05→21:39)
--- NOTE | 2020-05-19 07:30 | DI.RAD_ITS ---
EXAM: XR PORTABLE CHEST AP POST LINE CLINICAL HISTORY: post picc placement TECHNIQUE: 2D digital imaging was performed. COMPARISON: CR,XR XR PORTABLE CHEST AP from 05/14/2020 FINDINGS: MEDIASTINUM: Normal. HEART: Upper limits of normal in size. PULMONARY VASCULATURE: Normal. LUNGS: The lung sosa are unchanged compared to the examination from 05/14/2020. PLEURAL SPACE: Stable pleural effusions are seen left greater than right. BONE:Degenerative changes in the lumbar spine and the shoulders bilaterally. OTHER FINDINGS:There is a left PICC line. The tip of the catheter crosses the midline and lies in th e superior vena cava. IMPRESSION: Tip of the left PICC line is in the superior vena cava. DATA REPOSITORY: RADIATION DOSE DELIVERED:
[2020-05-19 07:48] LABS: HCT 25.4 % (40.0-50.0); HGB 8.1 g/dL (13.5-17.5); Mean Corp. HGB Concentration 31.9 g/dL (32.0-36.0); Mean Corpuscular Hemoglobin 37.2 pg (27.0-33.0); Mean Platelet Volume 9.9 fL (8.0-11.0); Platelet Count 251 x1000/uL (130-400); RBC 2.18 m/cumm (4.50-6.00); RBC Distribution Width 21.2 % (11.8-14.1); White Blood Cell Count 3.13 k/cumm (4.4-10.8)
[2020-05-19 07:58] LABS: Anion Gap 1.8 mmol/L (3-11); BUN 20 mg/dL (7-18); C-Reactive Protein 1.11 mg/dL (0.0-0.3); CO2 39.2 mmol/L (21.0-32.0); CREATININE 0.95 mg/dL (0.70-1.30); Calcium 9.1 mg/dL (8.5-10.1); Chloride 101 mmol/L (98-107); Glucose 106 mg/dL (74-106); Magnesium 2.1 mg/dL (1.8-2.4); Potassium 4.4 mmol/L (3.5-5.1); Sodium 142 mmol/L (136-145)
[2020-05-19 08:03] LABS: Mean Corpuscular Volume 116.5 fL (80-95)
[2020-05-19] MEDS: Lisinopril 10 MG TAB PO (08:04)
[2020-05-19] MEDS: Gabapentin 600 MG TAB PO ×3 (08:04→20:18)
[2020-05-19] MEDS: Metoprolol CR 100 MG TABCR PO (08:04)
[2020-05-19] MEDS: Zinc Sulfate 220 MG TAB PO (08:04)
[2020-05-19] MEDS: Pantoprazole 40 MG TABCR PO (08:05)
[2020-05-19] MEDS: Furosemide 40 MG TAB PO ×2 (08:05→15:21)
[2020-05-19] MEDS: Multivitamin TAB 1 TAB PO (08:05)
[2020-05-19] MEDS: Potassium Chloride 20 MEQ TABCR PO ×2 (08:05→20:18)
--- NOTE | 2020-05-19 09:05 | PDOC.CMPRO ---
Care Management Progress Note S/O: Lester was sitting up in a chair when CM met with him and appeared to be in good spirits. He had his IPAD on a stand and cards from his family displayed. He shared no concerns about returning home and stated my deals with all that, with a chuckle. Lester will return home with daily dressing changes provided by [facility]. Plan remains for Lester to receive IV ABX for four weeks, coordinated through [facility] and [facility]. PICC line placed, anticipate discharge tomorrow; CM notified [facility] and [facility]. CM continues to follow. A: Manjit is a 79 year old male admitted to [facility] on 05/12/20 with PNA with sepsis. P: Lester will return home with [facility] orders for RN/PT with [facility] providing home infusion therapy of IV ABX (4 weeks). Lester will transport via private vehicle with his and follow up with his PCP. CM will continue to support patient, family and discharge planning needs.
--- NOTE | 2020-05-19 12:44 | PT.INTREAT ---
Date of service: 05/19/20 Time of Service: 12:44 PT Notes Visit Reasons: Pneumonia Inpatient Physical Therapy Treatment Note [facility] Date: 05/19/20 PRECAUTIONS: Fall SUBJECTIVE: Lester is pleasant and agreeable to participating in PT, although states that his physical condition has worsened since the outpatient PT gym closed. He reports that not having his shoes or his up-walker and the worsened pain in his hip, has prevented him from participating much in inpatient PT OBJECTIVE: PAIN: Patient c/o R hip pain with standing BED MOBILITY/TRANSFERS Sit-stand:CGA Stand-sit: CGA GAIT: Assistive Device: FWW Weight Bearing: Full Assist: CGA Distance: 0', static standing x30 seconds Deviation: C/o increased R hip pain THEREX: Patient completed a resisted UE and LE strengthening program in a seated position, as per flow sheet. ASSESSMENT: Patient tolerated sessions well, although with c/o R hip pain in a.m. with with standing. He would benefit from continued global strengthening as well as participation in gait training for improved mobility. PLAN: Continue with PT's POC TREATMENT CODE/TIME: Session 1: 40 minutes; [id number] x3 Session 2: 15 minutes; [id number]
[2020-05-19] MEDS: Acetaminophen 325 MG TAB PO (15:20)
--- NOTE | 2020-05-19 16:45 | W.PM.PROGNOT ---
Date of Service Date of service: 05/19/20 Time of Service: 16:45 Assessment and Plan Assessment and plan (1) Group G streptococcal infection: Status: Acute Assessment and plan: Sepsis on admission - resolved. No evidence of endocarditis on TTE. Source - L foot wound infection/dehiscence associated with chronic osteo post debridement on 04/03/2020. There may also be a component of PAD. Plan is for outpatient vascular follow up. S/p PICC today. Continue cefepime x 4 weeks since 05/14/2020. (2) Chronic wound of extremity: Status: Acute Assessment and plan: As above. Wound vac d/c'ed. Arranging vascular referral. Continue abx, wound care. (3) Respiratory failure with hypoxia and hypercapnia: Status: Resolved Assessment and plan: Tolerating/doing well with Trilogy here, which he is being prescribed on discharge. Qualifiers: Chronicity: acute on chronic Qualified Code(s): J96.21 - Acute and chronic respiratory failure with hypoxia; J96.22 - Acute and chronic respiratory failure with hypercapnia (4) Obstructive sleep apnea: Status: Suspected Assessment and plan: Continue trilogy as above (5) Pulmonary hypertension: Status: Acute Assessment and plan: Agree that he would benefit from referral to pulmonology on discharge. (6) Hypoventilation associated with obesity: Status: Acute Assessment and plan: Continue trilogy. (7) Acute congestive heart failure: Status: Suspected Assessment and plan: Tolerating PO lasix. Continue to monitor I/Os and daily weights. Qualifiers: Heart failure type: unspecified Qualified Code(s): I50.9 - Heart failure, unspecified (8) Bone metastases: Status: Acute Assessment and plan: [facility] oncology recommends holding lynparza during acute illness. (9) Anemia: Status: Chronic Assessment and plan: s/p transfusion of 1 unit of pRBCS. Agree that anemia is likely multifactorial - of chronic disease as well as dilutional. Heme + x 1, but negative since. Continue lovenox. Qualifiers: Anemia type: unspecified type Qualified Code(s): D64.9 - Anemia, unspecified (10) DVT prophylaxis: Status: Acute Assessment and plan: Continue lovenox (11) Discharge planning issues: Status: Acute Assessment and plan: Plan to discharge home tomorrow with home health nursing, PT, IV antibiotics. Subjective Subjective Interval history since last seen: Feels well. S/p PICC line placement in his LUE today. Denies dizziness, chest pain, shortness of breath, nausea, vomiting. Admits that his LLE is a little bit more swollen - about to have a TRINITY put on it. (negative venous doppler on 05/14/2020). Exam Narrative Exam Narrative: General: Very pleasant elderly male, A&Ox3, looks well HEENT: EOMI, MMM Heart: RRR, no m/r/g Lungs: CTAB/diminished B Abdomen: soft, nontender, nondsitended Extremities: L foot dressed, LLE with +1 edema, RLE with trace edema. Objective Objective Clinical Data: Abnormal lab results 05/19/20 05/19/20 Range/Units 07:30 07:30 WBC 3.13 L (4.4-10.8) k/cumm RBC 2.18 L (4.50-6.00) m/cumm Hgb 8.1 L (13.5-17.5) g/dL Hct 25.4 L (40.0-50.0) % MCV 116.5 H (80-95) fL MCH 37.2 H (27.0-33.0) pg MCHC 31.9 L (32.0-36.0) g/dL RDW 21.2 H (11.8-14.1) % Carbon Dioxide 39.2 H (21.0-32.0) mmol/L Anion Gap 1.8 L (3-11) mmol/L BUN 20 H (7-18) mg/dL C-Reactive Protein 1.11 H (0.0-0.3) mg/dL Vital Signs Temperature 37.3 C 05/19/20 15:30 Temperature Source Tympanic 05/19/20 15:30 Pulse 66 05/19/20 15:30 Pulse Rhythm Regular 05/19/20 09:31 Pulse 69 05/18/20 13:17 Respiratory Rate 18 05/19/20 15:30 Respiratory Effort Non-Labored 05/19/20 09:31 Respiratory Depth Normal 05/19/20 09:31 Respiratory Pattern Normal 05/19/20 09:31 Blood Pressure 138/64 05/19/20 15:30 Blood Pressure Mean 107 05/15/20 09:04 Blood Pressure Position Sitting 05/15/20 08:00 Pulse Oximetry 98 05/19/20 15:30 Oxygen Delivery Method Nasal Cannula 05/19/20 15:30 Oxygen Flow Rate 1.5 05/19/20 15:30 Fraction of Inspired Oxygen (FIO2) 30 05/14/20 11:53 Pain Level 0 05/19/20 15:30 Comment 05/18/20 03:50 Intake & Output 05/18/20 05/19/20 05/19/20 23:59 11:59 23:59 Intake Total 440 / 780 340 / 680 340 / 680 Output Total 200 / 237 200 / 300 100 / 300 Balance 240 / 543 140 / 380 240 / 380 Weight 91.7 kg Intake: IV 200 / 300 100 / 200 100 / 200 Oral 240 / 480 240 / 480 240 / 480 Output: Urine 200 / 237 200 / 300 100 / 300 Other: Urine Color Yellow Yellow Yellow Urine Appearance Clear Clear Clear Urine Odor Normal Normal Comment Patient denies any pain or difficulty when voiding Stool Occult Blood Negative Negative Stool Size Small Large Small Stool Characteristics Brown Soft Formed Formed Brown Black Voiding Methods Bedside Commode Bedside Commode Bedside Commode Laboratory Results WBC 3.13 k/cumm (4.4-10.8) L 05/19/20 07:30 RBC 2.18 m/cumm (4.50-6.00) L 05/19/20 07:30 Hgb 8.1 g/dL (13.5-17.5) L 05/19/20 07:30 Hct 25.4 % (40.0-50.0) L 05/19/20 07:30 MCV 116.5 fL (80-95) H 05/19/20 07:30 MCH 37.2 pg (27.0-33.0) H 05/19/20 07:30 MCHC 31.9 g/dL (32.0-36.0) L 05/19/20 07:30 RDW 21.2 % (11.8-14.1) H 05/19/20 07:30 Plt Count 251 x1000/uL (130-400) 05/19/20 07:30 MPV 9.9 fL (8.0-11.0) 05/19/20 07:30 Immature Gran % 0.0 % 05/18/20 06:35 Neutrophils % 59.1 05/18/20 06:35 Lymphocytes % 24.3 05/18/20 06:35 Atypical Lymphs % 1 05/13/20 06:30 Monocytes % 15.0 05/18/20 06:35 Eosinophils % 1.3 05/18/20 06:35 Basophils % 0.3 05/18/20 06:35 Absolute Neutrophils 1.77 k/cumm (1.2-6.7) 05/18/20 06:35 Absolute Lymphocytes 0.73 k/cumm (1.2-3.4) L 05/18/20 06:35 Absolute Monocytes 0.45 k/cumm (0.11-0.7) 05/18/20 06:35 Absolute Eosinophils 0.04 k/cumm (0.0-0.7) 05/18/20 06:35 Absolute Basophils 0.01 k/cumm (0.0-0.2) 05/18/20 06:35 Differential Comment Rbc morph reviewed 05/18/20 06:35 RBC Morphology See below 05/18/20 06:35 Polychromasia Present 05/18/20 06:35 Hypochromasia 1+ 05/18/20 06:35 Poikilocytosis 1+ 05/16/20 07:05 Basophilic Stippling Present 05/14/20 05:30 Anisocytosis 3+ 05/18/20 06:35 Microcytosis 1+ 05/16/20 07:05 Macrocytosis 2+ 05/18/20 06:35 PT 11.8 sec (9.3-11.0) H 05/13/20 09:35 INR 1.2 (0.9-1.1) H 05/13/20 09:35 APTT 32.3 sec (21.0-31.4) H 05/13/20 09:35 D-Dimer 944 ng/mlFEU (<500) H 05/14/20 06:40 ABG Sample Site Right radial 05/14/20 08:00 ABG pH 7.37 (7.35-7.45) 05/14/20 08:00 ABG pCO2 60 mmHg (34-47) H 05/14/20 08:00 ABG pO2 78 mmHg (83-108) L 05/14/20 08:00 ABG HCO3 34 mmol/L (22-28) H 05/14/20 08:00 ABG Total CO2 33 mmol/L (22-29) H 05/14/20 08:00 ABG O2 Saturation 96 % (94-98) 05/14/20 08:00 ABG Base Excess 8.8 mmol/L (-3-3) H 05/14/20 08:00 VBG pH 7.35 (7.35-7.45) 05/15/20 06:40 VBG pCO2 70 mm/Hg (34-47) H* 05/15/20 06:40 VBG pO2 43 mm/Hg (28-44) 05/15/20 06:40 VBG HCO3 38 mmol/L (22-28) H 05/15/20 06:40 VBG Total CO2 37 mmol/L (22-29) H 05/15/20 06:40 VBG O2 Saturation 78 % (70-80) 05/15/20 06:40 VBG Base Excess 12.4 mmol/L (-3-3) H 05/15/20 06:40 Oxygen Liter Flow 5 bleed in L 05/14/20 05:45 FiO2 30 % 05/14/20 08:00 Sodium 142 mmol/L (136-145) 05/19/20 07:30 Potassium 4.4 mmol/L (3.5-5.1) 05/19/20 07:30 Chloride 101 mmol/L (98-107) 05/19/20 07:30 Carbon Dioxide 39.2 mmol/L (21.0-32.0) H 05/19/20 07:30 Anion Gap 1.8 mmol/L (3-11) L 05/19/20 07:30 BUN 20 mg/dL (7-18) H 05/19/20 07:30 Creatinine 0.95 mg/dL (0.70-1.30) 05/19/20 07:30 Estimated GFR/1.73 m2 >= 60.00 (mL/min/1.73m2) 05/19/20 07:30 Glucose 106 mg/dL (74-106) 05/19/20 07:30 Lactate 0.6 mmol/L (0.6-1.4) 05/15/20 06:40 Calcium 9.1 mg/dL (8.5-10.1) 05/19/20 07:30 Magnesium 2.1 mg/dL (1.8-2.4) 05/19/20 07:30 Iron Cancelled 05/14/20 12:04 Ferritin 266 ng/mL (26-388) 05/13/20 06:30 Total Bilirubin 0.2 mg/dL (0.2-1.0) 05/13/20 06:30 AST 33 U/L (15-37) 05/13/20 06:30 ALT 41 U/L (16-63) 05/13/20 06:30 Alkaline Phosphatase 65 U/L (46-116) 05/13/20 06:30 Ammonia 32 umol/L (11-32) 05/12/20 00:25 Lactate Dehydrogenase 234 U/L (85-227) H 05/12/20 00:25 Troponin I < 0.05 ng/mL (<0.06) 05/14/20 05:30 C-Reactive Protein 1.11 mg/dL (0.0-0.3) H 05/19/20 07:30 NT-Pro-B Natriuret Pep 1641 pg/mL (<300) H 05/16/20 07:05 Total Protein 5.8 g/dL (6.4-8.2) L 05/13/20 06:30 Albumin 2.6 g/dL (3.4-5.0) L 05/13/20 06:30 Vitamin B12 437 pg/mL (193-986) 05/12/20 06:45 Folate 19.9 ng/mL (8.6-20.0) 05/12/20 06:45 Procalcitonin 0.5 ng/mL 05/18/20 06:35 Urine Color Yellow (Yellow) 05/12/20 00:52 Urine Clarity Clear (Clear) 05/12/20 00:52 Urine pH 7.0 (5-8) 05/12/20 00:52 Ur Specific [place] 1.020 (1.005-1.025) 05/12/20 00:52 Urine Protein 30 mg/dL (Negative) H 05/12/20 00:52 Urine Ketones Negative mg/dL (Negative) 05/12/20 00:52 Urine Blood Negative (Negative) 05/12/20 00:52 Urine Nitrite Negative (Negative) 05/12/20 00:52 Urine Bilirubin Negative (Negative) 05/12/20 00:52 Urine Urobilinogen 0.2 EU/dL (Up TO 0.2) 05/12/20 00:52 Ur Leukocyte Esterase Negative (Negative) 05/12/20 00:52 Urine RBC Negative HPF (0-2) 05/12/20 00:52 Urine WBC Negative HPF (0-5) 05/12/20 00:52 Ur Epithelial Cells Negative HPF (Negative) 05/12/20 00:52 Urine Crystals Negative HPF (Negative) 05/12/20 00:52 Urine Bacteria Negative HPF (Negative) 05/12/20 00:52 Urine Casts Negative LPF (Negative) 05/12/20 00:52 Urine Mucus Trace (Negative) 05/12/20 00:52 Ur Culture Indicated? No 05/12/20 00:52 Urine Glucose Negative mg/dL (Negative) 05/12/20 00:52 COVID-19 PCR Negative (Negative) 05/12/20 00:32 Nasopharyn COVID-19 PCR Not Applicable 05/12/20 00:32 Ref Test Perform Site [facility] lab 05/12/20 00:32 Patient ABO/Rh O Positive 05/13/20 09:35 Antibody Screen Negative 05/13/20 09:35 Crossmatch See Detail 05/13/20 09:35
[2020-05-19] MEDS: Enoxaparin 40 MG/0.4 ML SYR SC (20:18)
[2020-05-20] VITALS (8 sets, daily range): BP systolic 120–180; BP diastolic 50–65; PULSE 52–108; RESP 18–22; TEMP 36.1–37.1; O2SAT 84–100
[2020-05-20] MEDS: Normal Saline Flush 10 ML SYR IVP ×2 (05:44→21:34)
[2020-05-20] MEDS: CEFEPIME 2 GM in Normal Saline 100 ML IVPB ×3 (05:44→21:34)
[2020-05-20 07:37] LABS: Abs Immature Grans 0.01 k/cumm (0.0-0.09); Absolute Basophil Count 0.01 k/cumm (0.0-0.2); Absolute Eosinophil Count 0.04 k/cumm (0.0-0.7); Absolute Lymphocyte Count 0.62 k/cumm (1.2-3.4); Absolute Monocyte Count 0.53 k/cumm (0.11-0.7); Absolute Neutrophil Count 1.64 k/cumm (1.2-6.7); Basophils % 0.4; Eosinophils % 1.4; HCT 25.6 % (40.0-50.0); HGB 7.9 g/dL (13.5-17.5); Immature Grans % 0.4 %; Lymphocytes % 21.8; Mean Corp. HGB Concentration 30.9 g/dL (32.0-36.0); Mean Corpuscular Hemoglobin 36.4 pg (27.0-33.0); Mean Platelet Volume 10.5 fL (8.0-11.0); Monocytes % 18.6; Neutrophils % 57.4; Platelet Count 267 x1000/uL (130-400); RBC 2.17 m/cumm (4.50-6.00); RBC Distribution Width 21.7 % (11.8-14.1); White Blood Cell Count 2.85 k/cumm (4.4-10.8)
[2020-05-20 07:51] LABS: Anion Gap 2.5 mmol/L (3-11); BUN 24 mg/dL (7-18); CO2 36.5 mmol/L (21.0-32.0); CREATININE 1.03 mg/dL (0.70-1.30); Chloride 102 mmol/L (98-107); Glucose 103 mg/dL (74-106); Magnesium 2.2 mg/dL (1.8-2.4); Potassium 4.5 mmol/L (3.5-5.1); Sodium 141 mmol/L (136-145)
[2020-05-20 08:03] LABS: Anisocytosis 3+; Diff Comment RBC Morph Reviewed; Macrocytosis 2+; Polychromasia Present
[2020-05-20 08:04] LABS: Hypochromasia 1+
[2020-05-20] MEDS: Zinc Sulfate 220 MG TAB PO (08:59)
[2020-05-20] MEDS: Acetaminophen 325 MG TAB PO (08:59)
[2020-05-20] MEDS: Lisinopril 10 MG TAB PO (09:00)
[2020-05-20] MEDS: Pantoprazole 40 MG TABCR PO (09:00)
[2020-05-20] MEDS: Furosemide 40 MG TAB PO ×2 (09:00→16:28)
[2020-05-20] MEDS: Gabapentin 600 MG TAB PO ×3 (09:01→20:22)
[2020-05-20] MEDS: Multivitamin TAB 1 TAB PO (09:01)
[2020-05-20] MEDS: Metoprolol CR 100 MG TABCR PO (09:01)
[2020-05-20] MEDS: Potassium Chloride 20 MEQ TABCR PO ×2 (09:01→20:22)
[2020-05-20] MEDS: fentaNYL 50 MCG PATCH TD (12:28)
--- NOTE | 2020-05-20 13:02 | PT.INTREAT ---
Date of service: 05/20/20 Time of Service: 13:02 PT Notes Visit Reasons: Pneumonia Inpatient Physical Therapy Treatment Note [facility] Date: 05/20/20 PRECAUTIONS: Fall SUBJECTIVE: Lester states that he will not be able to walk this morning, as he is due for his Fentanyl patch to be changed at 1400 today. He is hopeful that he will be discharged home after that is changed. OBJECTIVE: PAIN: Patient c/o R hip pain with standing THEREX: Patient completed a resisted UE and LE strengthening program in a seated position, as per flow sheet. ASSESSMENT: Patient tolerated ther ex well. He would benefit from continued global strengthening as well as participation in gait training for improved mobility. PLAN: Continue with PT's POC TREATMENT CODE/TIME: Session 1: 15 minutes; [id number]
--- NOTE | 2020-05-20 13:12 | PDOC.CMPRO ---
- If Service Date Differs Date of service: 05/20/20 Time of Service: 13:12 Care Management Progress Note S/O: Lester was sitting up in a chair when CM met with him. He had anticipated going home today however the home infusion company ([employer]) was unable to deliver his medication in time for [facility] to do his intake and begin therapy. Lester will be discharged tomorrow around noon and home health will initiate services around 2 pm. CALEB has communicated with [facility] who will deliver the Cefepime by 10 pm tonight to enable dosing to begin tomorrow afternoon. CALEB also spoke with [employer], Lester's , who will pick him up at noon, knowing HH will arrive between 1:30 and 2pm tomorrow. CM confirmed the time with [facility] this afternoon. A: Manjit is a 79 year old male admitted to [facility] on 05/12/20 with PNA with sepsis. P: Lester will return home with home health services for nursing and PT, likely tomorrow. 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 CM coordinated home infusion therapy with [facility] and [facility]. Lester will transport via private vehicle with his in the early afternoon and [facility] will arrive around 2pm to initiate services. Lester will follow up with his PCP. CM will continue to support patient, family and discharge planning needs.
--- NOTE | 2020-05-20 18:09 | W.PM.PROGNOT ---
Date of Service Date of service: 05/20/20 Time of Service: 18:09 Assessment and Plan Assessment and plan (1) Group G streptococcal infection: Status: Acute Assessment and plan: Sepsis on admission - resolved. No evidence of endocarditis on TTE. Source - L foot wound infection/dehiscence associated with chronic osteo post debridement on 04/03/2020. There may also be a component of PAD. Plan is for outpatient vascular follow up. S/p PICC 05/19/2020. Continue cefepime x 4 weeks since 05/14/2020. (2) Chronic wound of extremity: Status: Acute Assessment and plan: As above. Wound vac d/c'ed. Arranging vascular referral. Continue abx, wound care. (3) Respiratory failure with hypoxia and hypercapnia: Status: Resolved Assessment and plan: Tolerating/doing well with Trilogy here, which he is being prescribed on discharge. Qualifiers: Chronicity: acute on chronic Qualified Code(s): J96.21 - Acute and chronic respiratory failure with hypoxia; J96.22 - Acute and chronic respiratory failure with hypercapnia (4) Obstructive sleep apnea: Status: Suspected Assessment and plan: Continue trilogy as above (5) Pulmonary hypertension: Status: Acute Assessment and plan: Agree that he would benefit from referral to pulmonology on discharge. (6) Hypoventilation associated with obesity: Status: Acute Assessment and plan: Continue trilogy. (7) Acute congestive heart failure: Status: Suspected Assessment and plan: Tolerating PO lasix. Continue to monitor I/Os and daily weights. Qualifiers: Heart failure type: unspecified Qualified Code(s): I50.9 - Heart failure, unspecified (8) Bone metastases: Status: Acute Assessment and plan: [facility] oncology recommends holding lynparza during acute illness. (9) Anemia: Status: Chronic Assessment and plan: s/p transfusion of 1 unit of pRBCS. Agree that anemia is likely multifactorial - of chronic disease as well as dilutional. Heme + x 1, but negative since. Continue lovenox. Qualifiers: Anemia type: unspecified type Qualified Code(s): D64.9 - Anemia, unspecified (10) DVT prophylaxis: Status: Acute Assessment and plan: Continue lovenox (11) Discharge planning issues: Status: Acute Assessment and plan: Plan to discharge home tomorrow with home health nursing, PT, IV antibiotics. Subjective Subjective Interval history since last seen: Mr Adrian has no complaints today. He was not able to go home today because home health antibiotics were put in a pump rather than a cassette. They will be placed in a cassette and delivered tonight. He denies dizziness, chest pain, shortness of breath, nausea, vomiting. He feels well. Exam Narrative Exam Narrative: General: Very pleasant elderly male, A&Ox3, looks well HEENT: EOMI, MMM Heart: RRR, no m/r/g Lungs: CTAB/diminished B Abdomen: soft, nontender, nondsitended Extremities: L foot dressed, BLE's without edema except L foot Objective Objective Clinical Data: Abnormal lab results 05/20/20 05/20/20 Range/Units 06:40 07:13 WBC 2.85 L (4.4-10.8) k/cumm RBC 2.17 L (4.50-6.00) m/cumm Hgb 7.9 L (13.5-17.5) g/dL Hct 25.6 L (40.0-50.0) % MCV 118.0 H (80-95) fL MCH 36.4 H (27.0-33.0) pg MCHC 30.9 L (32.0-36.0) g/dL RDW 21.7 H (11.8-14.1) % Absolute Lymphocytes 0.62 L (1.2-3.4) k/cumm Carbon Dioxide 36.5 H (21.0-32.0) mmol/L Anion Gap 2.5 L (3-11) mmol/L BUN 24 H (7-18) mg/dL Vital Signs Temperature 36.3 C L 05/20/20 15:37 Temperature Source Tympanic 05/20/20 15:37 Pulse 67 05/20/20 15:37 Pulse Rhythm Regular 05/20/20 14:40 Pulse 69 05/18/20 13:17 Respiratory Rate 22 05/20/20 15:37 Respiratory Effort Non-Labored 05/20/20 14:40 Respiratory Depth Normal 05/20/20 14:40 Respiratory Pattern Normal 05/20/20 14:40 Blood Pressure 147/65 H 05/20/20 16:14 Blood Pressure Mean 107 05/15/20 09:04 Blood Pressure Position Sitting 05/15/20 08:00 Pulse Oximetry 95 05/20/20 15:37 Oxygen Delivery Method Nasal Cannula 05/20/20 15:37 Oxygen Flow Rate 1 05/20/20 15:37 Fraction of Inspired Oxygen (FIO2) 30 05/14/20 11:53 Pain Level 3 05/20/20 15:37 Comment 05/20/20 11:39 Intake & Output 05/19/20 05/20/20 05/20/20 23:59 11:59 23:59 Intake Total 440 / 780 440 / 680 240 / 680 Output Total 400 / 600 150 / 450 300 / 450 Balance 40 / 180 290 / 230 -60 / 230 Weight 91.9 kg Intake: IV 200 / 300 200 / 200 Oral 240 / 480 240 / 480 240 / 480 Output: Urine 400 / 600 150 / 450 300 / 450 Other: Urine Color Yellow Yellow Yellow Urine Appearance Clear Clear Clear Urine Odor Normal Comment urine mixed with stool Stool Size Small Small Small Stool Characteristics Soft Brown Soft Formed Formed Brown Brown Voiding Methods Bedside Commode Bedside Commode Bedside Commode Diaper Incontinent Laboratory Results WBC 2.85 k/cumm (4.4-10.8) L 05/20/20 06:40 RBC 2.17 m/cumm (4.50-6.00) L 05/20/20 06:40 Hgb 7.9 g/dL (13.5-17.5) L 05/20/20 06:40 Hct 25.6 % (40.0-50.0) L 05/20/20 06:40 MCV 118.0 fL (80-95) H 05/20/20 06:40 MCH 36.4 pg (27.0-33.0) H 05/20/20 06:40 MCHC 30.9 g/dL (32.0-36.0) L 05/20/20 06:40 RDW 21.7 % (11.8-14.1) H 05/20/20 06:40 Plt Count 267 x1000/uL (130-400) 05/20/20 06:40 MPV 10.5 fL (8.0-11.0) 05/20/20 06:40 Immature Gran % 0.4 % 05/20/20 06:40 Neutrophils % 57.4 05/20/20 06:40 Lymphocytes % 21.8 05/20/20 06:40 Atypical Lymphs % 1 05/13/20 06:30 Monocytes % 18.6 05/20/20 06:40 Eosinophils % 1.4 05/20/20 06:40 Basophils % 0.4 05/20/20 06:40 Absolute Neutrophils 1.64 k/cumm (1.2-6.7) 05/20/20 06:40 Absolute Lymphocytes 0.62 k/cumm (1.2-3.4) L 05/20/20 06:40 Absolute Monocytes 0.53 k/cumm (0.11-0.7) 05/20/20 06:40 Absolute Eosinophils 0.04 k/cumm (0.0-0.7) 05/20/20 06:40 Absolute Basophils 0.01 k/cumm (0.0-0.2) 05/20/20 06:40 Differential Comment Rbc morph reviewed 05/20/20 06:40 RBC Morphology See below 05/20/20 06:40 Polychromasia Present 05/20/20 06:40 Hypochromasia 1+ 05/20/20 06:40 Poikilocytosis 1+ 05/16/20 07:05 Basophilic Stippling Present 05/14/20 05:30 Anisocytosis 3+ 05/20/20 06:40 Microcytosis 1+ 05/16/20 07:05 Macrocytosis 2+ 05/20/20 06:40 PT 11.8 sec (9.3-11.0) H 05/13/20 09:35 INR 1.2 (0.9-1.1) H 05/13/20 09:35 APTT 32.3 sec (21.0-31.4) H 05/13/20 09:35 D-Dimer 944 ng/mlFEU (<500) H 05/14/20 06:40 ABG Sample Site Right radial 05/14/20 08:00 ABG pH 7.37 (7.35-7.45) 05/14/20 08:00 ABG pCO2 60 mmHg (34-47) H 05/14/20 08:00 ABG pO2 78 mmHg (83-108) L 05/14/20 08:00 ABG HCO3 34 mmol/L (22-28) H 05/14/20 08:00 ABG Total CO2 33 mmol/L (22-29) H 05/14/20 08:00 ABG O2 Saturation 96 % (94-98) 05/14/20 08:00 ABG Base Excess 8.8 mmol/L (-3-3) H 05/14/20 08:00 VBG pH 7.35 (7.35-7.45) 05/15/20 06:40 VBG pCO2 70 mm/Hg (34-47) H* 05/15/20 06:40 VBG pO2 43 mm/Hg (28-44) 05/15/20 06:40 VBG HCO3 38 mmol/L (22-28) H 05/15/20 06:40 VBG Total CO2 37 mmol/L (22-29) H 05/15/20 06:40 VBG O2 Saturation 78 % (70-80) 05/15/20 06:40 VBG Base Excess 12.4 mmol/L (-3-3) H 05/15/20 06:40 Oxygen Liter Flow 5 bleed in L 05/14/20 05:45 FiO2 30 % 05/14/20 08:00 Sodium 141 mmol/L (136-145) 05/20/20 07:13 Potassium 4.5 mmol/L (3.5-5.1) 05/20/20 07:13 Chloride 102 mmol/L (98-107) 05/20/20 07:13 Carbon Dioxide 36.5 mmol/L (21.0-32.0) H 05/20/20 07:13 Anion Gap 2.5 mmol/L (3-11) L 05/20/20 07:13 BUN 24 mg/dL (7-18) H 05/20/20 07:13 Creatinine 1.03 mg/dL (0.70-1.30) 05/20/20 07:13 Estimated GFR/1.73 m2 >= 60.00 (mL/min/1.73m2) 05/20/20 07:13 Glucose 103 mg/dL (74-106) 05/20/20 07:13 Lactate 0.6 mmol/L (0.6-1.4) 05/15/20 06:40 Calcium 9.0 mg/dL (8.5-10.1) 05/20/20 07:13 Magnesium 2.2 mg/dL (1.8-2.4) 05/20/20 07:13 Iron Cancelled 05/14/20 12:04 Ferritin 266 ng/mL (26-388) 05/13/20 06:30 Total Bilirubin 0.2 mg/dL (0.2-1.0) 05/13/20 06:30 AST 33 U/L (15-37) 05/13/20 06:30 ALT 41 U/L (16-63) 05/13/20 06:30 Alkaline Phosphatase 65 U/L (46-116) 05/13/20 06:30 Ammonia 32 umol/L (11-32) 05/12/20 00:25 Lactate Dehydrogenase 234 U/L (85-227) H 05/12/20 00:25 Troponin I < 0.05 ng/mL (<0.06) 05/14/20 05:30 C-Reactive Protein 1.11 mg/dL (0.0-0.3) H 05/19/20 07:30 NT-Pro-B Natriuret Pep 1641 pg/mL (<300) H 05/16/20 07:05 Total Protein 5.8 g/dL (6.4-8.2) L 05/13/20 06:30 Albumin 2.6 g/dL (3.4-5.0) L 05/13/20 06:30 Vitamin B12 437 pg/mL (193-986) 05/12/20 06:45 Folate 19.9 ng/mL (8.6-20.0) 05/12/20 06:45 Procalcitonin 0.5 ng/mL 05/18/20 06:35 Urine Color Yellow (Yellow) 05/12/20 00:52 Urine Clarity Clear (Clear) 05/12/20 00:52 Urine pH 7.0 (5-8) 05/12/20 00:52 Ur Specific [place] 1.020 (1.005-1.025) 05/12/20 00:52 Urine Protein 30 mg/dL (Negative) H 05/12/20 00:52 Urine Ketones Negative mg/dL (Negative) 05/12/20 00:52 Urine Blood Negative (Negative) 05/12/20 00:52 Urine Nitrite Negative (Negative) 05/12/20 00:52 Urine Bilirubin Negative (Negative) 05/12/20 00:52 Urine Urobilinogen 0.2 EU/dL (Up TO 0.2) 05/12/20 00:52 Ur Leukocyte Esterase Negative (Negative) 05/12/20 00:52 Urine RBC Negative HPF (0-2) 05/12/20 00:52 Urine WBC Negative HPF (0-5) 05/12/20 00:52 Ur Epithelial Cells Negative HPF (Negative) 05/12/20 00:52 Urine Crystals Negative HPF (Negative) 05/12/20 00:52 Urine Bacteria Negative HPF (Negative) 05/12/20 00:52 Urine Casts Negative LPF (Negative) 05/12/20 00:52 Urine Mucus Trace (Negative) 05/12/20 00:52 Ur Culture Indicated? No 05/12/20 00:52 Urine Glucose Negative mg/dL (Negative) 05/12/20 00:52 COVID-19 PCR Negative (Negative) 05/12/20 00:32 Nasopharyn COVID-19 PCR Not Applicable 05/12/20 00:32 Ref Test Perform Site [facility] lab 05/12/20 00:32 Patient ABO/Rh O Positive 05/13/20 09:35 Antibody Screen Negative 05/13/20 09:35 Crossmatch See Detail 05/13/20 09:35
[2020-05-20] MEDS: Enoxaparin 40 MG/0.4 ML SYR SC (20:22)
[2020-05-20] MEDS: Melatonin 3 MG TAB PO (21:34)
[2020-05-21 03:55] VITALS: BP 134/71; PULSE 60; RESP 17; TEMP 36.4; O2SAT 97
[2020-05-21] MEDS: CEFEPIME 2 GM in Normal Saline 100 ML IVPB (05:38)
[2020-05-21] MEDS: Normal Saline Flush 10 ML SYR IVP (05:39)
--- NOTE | 2020-05-21 07:00 | HOME_ITS ---
Home Ventilator Equipment Home care company [employer] Reason: Obstructive Sleep Apnea Make: Model: Mask type: Nasal mask Mask size: Medium Mode: BiPAP Settings: AVAPS-AE MaxPress 20 PS min5/max15 EPAP min5/max10 Oxygen bleed in (lpm): 2 Condition: Good Date last checked: 05/21/20 Year of last sleep study: Compliance Comments: Brand of device: [facility]
[2020-05-21 07:50] VITALS: BP 121/53; PULSE 61; RESP 18; TEMP 36.5; O2SAT 98
[2020-05-21 08:25] VITALS: O2SAT 98
[2020-05-21] MEDS: Zinc Sulfate 220 MG TAB PO (08:27)
[2020-05-21] MEDS: Potassium Chloride 20 MEQ TABCR PO (08:27)
[2020-05-21] MEDS: Furosemide 40 MG TAB PO (08:27)
[2020-05-21] MEDS: Lisinopril 10 MG TAB PO (08:28)
[2020-05-21] MEDS: Multivitamin TAB 1 TAB PO (08:28)
[2020-05-21] MEDS: Gabapentin 600 MG TAB PO (08:28)
[2020-05-21] MEDS: Metoprolol CR 100 MG TABCR PO (08:28)
[2020-05-21] MEDS: Pantoprazole 40 MG TABCR PO (08:28)
[2020-05-21 11:25] VITALS: BP 126/66; PULSE 60; RESP 18; TEMP 36.8; O2SAT 97
--- NOTE | 2020-05-21 11:27 | W.PM.DS.N ---
Date of service: 05/21/20 Time of Service: 11:27 DS: Diagnosis Discharge Diagnosis (1) Sepsis: Status: Resolved (2) Bacteremia due to Streptococcus: Status: Resolved Asessment and Plan: Group G strep (3) Left foot infection: Status: Acute Asessment and Plan: polymicrobial (4) Acute on chronic respiratory failure with hypoxia and hypercapnia: Status: Acute (5) Acute on chronic diastolic CHF (congestive heart failure), NYHA class 1: Status: Acute (6) Acute on chronic right-sided congestive heart failure: Status: Resolved (7) Bilateral pleural effusion: Status: Acute (8) Pulmonary hypertension: Status: Chronic (9) Hypoventilation associated with obesity: Status: Chronic (10) Obstructive sleep apnea: Status: Chronic (11) Bone metastases: Status: Chronic (12) Anemia: Status: Chronic Asessment and Plan: Acute no chronic, with no evidence of acute bleeding, requiring transfusion of 1 unit of pRBCs on this admission (13) Toxic metabolic encephalopathy: Status: Acute (14) PAD (peripheral artery disease): Status: Suspected (15) Metastatic malignant neoplasm to prostate: Status: Chronic (16) 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 (17) COVID-19 ruled out by laboratory testing: Status: Ruled-out Discharge Plan Disposition Patient Disposition: HOME W/HOME HEALTH SERVICE Condition: Improving Discharge Details Chief Complaint: AMS/LOC Clinical Impression: Sepsis, Pneumonia, Acute alteration in mental status, Chronic wound of extremity Reason For Visit: Altered mental status Admit Date/Time: 05/12/20 02:28 Admit Provider: Abisai Kolb Attending Provider: Festus Galarza Primary Care Provider: Tonny Leslie ED Provider: Yuniel Gutiérrez Hospital Course Hospital Course: Mr Adrian is a 80 year old male with PMHx of a peripheral neuropathy due to chemotherapy resulting in 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 The patient was also hypoxic and hypercapnic, requiring BiPAP. While there was initial suspicion for LLL PNA, a CT of the chest done in follow up was more consistent with fluid overload and pleural effusions. He was diuresed with lasix drip and transitioned to PO lasix. His mental status improved, and he was moved out of the ICU on 05/15/2020 to medical surgical floor. He was evaluated by Dr Briceno for his left foot wound, which is felt to be the source of infection. He did not require a surgical intervention on this admission and was managed with wound vac to the wound and then transitioned to gauze packing/dressing. His blood and wound culture results drove the change of initial antibiotics: vancomycin, zosyn, azithromycin on admission, to ceftriaxone, to then transition to Pen G, clindamycin, and cefepime. ID consult was sought to help barby antibiotics, and it is felt that all of the currently identified pathogens in this patient would be adequately covered with cefepime alone. His repeat blood cultures on 05/14/2020 had a contaminant (staph hominis), which was not seen on the 3rd set of blood cultures on 05/16/2020. His Transthoracic echocardiogram did not reveal any vegetations. The first day of antibiotic therapy is considered 05/14/2020, and the patient is continue cefepime via home health infusions for 6 weeks (last day of therapy 06/24/2020). The patient had a PICC line placed on 05/19/2020. He is being discharged home today with home health nursing for both IV antibiotics and wound care as well as with home health physical therapy. His daily dressing change instructions are: Wash left foot wound with soap and water rinsing copiously. Gently pat dry. [place] periwound area with povidone iodine swab stick. Insert quarter-inch Nu Gauze into wound, cover with Mepilex dressing and or gauze Kerlex. He will need follow up with PCP, podiatry, vascular surgery (the poor healing of the L foot wound could be associated with underlying PAD), and with pulmonology. The patient was set up with Trilogy on this admission and will need to have an outpatient overnight oxymetry to ensure that 2L bleed in is adequate as he is using the trilogy more and in his home setting. The patient is medically stable for discharge. Care for patient as well as completion of his discharge summary on day of discharge took 1 hour. Home Meds and New Rx's Prescriptions: New furosemide 40 mg Tablet 40 mg PO BID@0830,1600 Qty: 14 RF: 0 potassium chloride [Klor-Con M20] 20 mEq Tablet,Er Particles/Crystals 20 meq PO DAILY Qty: 7 RF: 0 melatonin 3 mg Tablet Extended Release 3 mg PO HS Qty: 30 RF: 0 zinc sulfate [Zinc-220] 220 (50) mg Capsule 220 mg PO DAILY Qty: 7 RF: 0 Continued metoprolol succinate 100 MG tablet extended release 24 hr 100 mg PO DAILY RF: 0 Lupron Depot (4 month) 30 MG syringe kit 30 mg IM .Q4 months RF: 0 multivitamin tablet 1 tab PO DAILY RF: 0 fluticasone propionate 50 mcg/actuation spray,suspension 1 spray BRIAN DAILY RF: 0 Xgeva 120 mg/1.7 mL (70 mg/mL) solution 120 mg SC Q6W RF: 0 lisinopril 5 mg tablet 10 mg PO DAILY Qty: 2 RF: 0 gabapentin 300 mg capsule 800 mg PO TID RF: 0 zinc oxide 20 % Ointment 1 applic topical TID Qty: 30 RF: 0 clotrimazole 1 % Cream 1 applic topical TID Qty: 30 RF: 0 vits A and D-white pet-lanolin Ointment 1 applic topical TID Qty: 56 RF: 0 calcium carbonate-vitamin D3 [Calcium 600 + D(3)] 600 mg(1,500mg) -400 unit Tablet 1 tab PO DAILY RF: 0 hydrocodone-acetaminophen [[place]] 5-325 mg tablet 1 tab PO Q6H PRN (Reason: pain) Qty: 7 RF: 0 fentanyl 50 mcg/hr patch 72 hour 50 mcg transdermal Q48H RF: 0 Discontinued Lynparza 150 mg Tablet 300 mg PO BID Qty: 0 RF: 0 furosemide 40 mg tablet 20 mg PO DAILY RF: 0 Discharge Instructions Instructions: Cefepime (Injection), Sepsis (GEN), Encephalopathy (DC), PICC (Peripherally Inserted Central Catheter) (DC) Additional Instructions: Finish your antibiotics as prescribed. Return to the hospital with any fever, bleeding, chest pain, or shortness of breath, any new confusion, signs of redness or swelling around your PICC line, or if your wound looks worse. Follow up with your PCP, Dr Briceno, [place] [facility] [place] well as with [place] [facility] [place]. Care Plan Goals: Home with home health nursing and PT. Stand Alone Forms: Nursing Discharge Form Referrals: [place] [place] - [place] [place] - (poorly healing surgical wound L foot (nondiabetic), concern for PAD) Ari Briceno DPM [[facility] STAFF PHYSICIAN] - 05/25/20 2:00 pm Tonny Leslie MD [Primary Care Provider] - Activity:: Activity as Tolerated Equipment/Supplies:: No Equipment Needed Diet:: As Tolerated Discharge Orders Discharge Orders: Discharge Order (Routine); Ordered 05/21/20 Ordered By: Loly Brown DS: Summary Status at Discharge Functional status at discharge: independent ambulation Overall status at discharge: patient is back to baseline Mental Status: mental status grossly normal Speech and Movement: speech and movement normal Mood: congruent mood Affect: normal affect Exam Narrative Exam Narrative: General: Very pleasant elderly male, A&Ox3, looks well HEENT: EOMI, MMM Heart: RRR, no m/r/g Lungs: CTAB/diminished B Abdomen: soft, nontender, nondsitended Extremities: L foot dressed, BLE's without edema except L foot Psych Mental Status: mental status grossly normal Speech and Movement: speech and movement normal Mood: congruent mood Affect: normal affect DS: Data Vitals/I&O Vitals and I&O: Vital Signs Temperature 36.8 C 05/21/20 11:25 Temperature Source Tympanic 05/21/20 11:25 Pulse 60 05/21/20 11:25 Pulse Rhythm Regular 05/21/20 08:25 Pulse 69 05/18/20 13:17 Respiratory Rate 18 05/21/20 11:25 Respiratory Effort Non-Labored 05/21/20 08:25 Respiratory Depth Normal 05/21/20 08:25 Respiratory Pattern Normal 05/21/20 08:25 Blood Pressure 126/66 05/21/20 11:25 Blood Pressure Mean 107 05/15/20 09:04 Blood Pressure Position Sitting 05/15/20 08:00 Pulse Oximetry 97 05/21/20 11:25 Oxygen Delivery Method Nasal Cannula 05/21/20 11:25 Oxygen Flow Rate 1.5 05/21/20 11:25 Fraction of Inspired Oxygen (FIO2) 30 05/14/20 11:53 Pain Level 0 05/21/20 11:25 Comment 05/20/20 11:39 Intake & Output 05/20/20 05/20/20 05/21/20 11:59 23:59 11:59 Intake Total 440 / 1240 800 / 1240 240 / 240 Output Total 150 / 1100 950 / 1100 Balance 290 / 140 -150 / 140 240 / 240 Weight 91.9 kg 91.8 kg Intake: IV 200 / 520 320 / 520 Oral 240 / 720 480 / 720 240 / 240 Output: Urine 150 / 1100 950 / 1100 Other: Urine Color Yellow Light Shira Yellow Urine Appearance Clear Cloudy Cloudy Comment urine was mixed with stool urine mixed with stool Stool Size Small Moderate Moderate Stool Characteristics Brown Foamy Soft Formed Liquid Brown Voiding Methods Bedside Commode Bedside Commode Bedside Commode Diaper Incontinent Data Completed and Pending Completed studies during hospitalization [Text1]: CXR 05/12/2020: Findings suggesting possible left basilar pneumonia, CHF may be present as well. Follow-up PA and lateral chest suggested. XR L foot 05/12/2020: Three views were obtained there is marked demineralization of the bones of the foot and ankle. There are severe degenerative changes noted at multiple sites. There has been a prior amputation of the 2nd toe. No gross destructive process seen, no gross soft tissue gas identified. If there is a high clinical suspicion of osteomyelitis additional evaluation with MR may be considered. CT head 05/12/2020: No evidence of acute intracranial process. Echo (transthoracic) 05/13/2020: Left Ventricle The left ventricle is normal size. The left ventricular systolic function is normal. The left ventricular ejection fraction is within the normal range. There is normal left ventricular wall thickness. There is normal LV segmental wall motion. There is no ventricular septal defect visualized. Right Ventricle The right ventricle is normal size. The right ventricular systolic function is normal. The RVSP is 50.7 mmHg. Atria The left atrium size is normal. The right atrium size is normal. Aortic Valve The Aortic valve is sclerotic. Aortic valve is trileaflet. There is no aortic valvular stenosis. No aortic regurgitation is present. Mitral Valve Mild mitral annular calcification. No evidence of mitral valve stenosis. Trace mitral regurgitation. Tricuspid Valve The tricuspid valve is normal in structure. There is no tricuspid valve stenosis. Trace tricuspid regurgitation. Pulmonic Valve The pulmonary valve is normal in structure. There is no pulmonic valvular stenosis. Trace pulmonic regurgitation. Great Vessels The aortic root is normal in size. The ascending aorta is normal in size. Aortic arch is not well visualized. IVC is normal in size and collapses >50% with inspiration. Pericardium Trace pericardial effusion. CXR 05/14/2020: Cardiomegaly noted, possible pleural effusions. Possible bilateral pulmonary infiltrates, no gross interval change from May 12. Additional evaluation with CT suggested for improved characterization of of pulmonary and pleural findings. Venous doppler 05/14/2020: No evidence of deep venous thrombosis on evaluation of both lower extremities. CT chest 05/14/2020: No evidence of pulmonary embolic disease. Bilateral pleural effusions, left greater than right. There is cardiomegaly, the pleural effusions may be on the basis of CHF although no cori pulmonary edema is present. Alternatively, the pleural effusions could be on the basis of metastatic disease from prostate carcinoma. There is no pulmonary consolidation present to suggest the presence of pneumonia. Multiple sclerotic bony metastases are identified in the thorax. CXR 05/19/2020: Tip of the left PICC line is in the superior vena cava. [facility] Medical History (Updated 05/21/20 @ 12:01 by Loly Brown MD) AWILDA (acute kidney injury) (Resolved) Bone metastases (Chronic) Chronic kidney disease, stage 3 Decubital ulcer (Resolved) Edema (Resolved) Hx of acute renal failure Hyperlipidemia (Chronic) Hypertension (Chronic) Hypoventilation associated with obesity (Chronic) Left foot pain (Resolved) Left rotator cuff tear (Chronic) Lichen sclerosus (Acute) Memory loss (Chronic) Metastatic malignant neoplasm to prostate (Chronic) Mononeuropathy of left lower extremity Peripheral edema 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) Physeal fracture of phalanx of toe of left foot Pressure ulcer Buttocks TBI (traumatic brain injury) (Acute) Family History Mother Lung cancer Social History Smoking/Tobacco Use Status: Never Alcohol Intake: current Alcohol Intake frequency: a few times a month Alcohol type: hard liquor Drug use: Never Substance use type: does not use Household members: spouse Number of Children: 2 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
--- NOTE | 2020-05-21 12:37 | PDOC.HHF2F ---
Home Health Certification Home Health Certification: 1. Encounter Date and Reason I certify that CALEB ARCHER was seen by Loly Brown on 05/21/20 and that I had a [id number] encounter with this patient that meets the physician face to face encounter requirements. 2. Clinical Findings Supporting Skilled Need and Homebound Status I certify that home health services are medically necessary, include either intermittent nursing home and/or physical/speech therapy, and that this patient is homebound in that absences from the home require considerable and taxing effort and are infrequent or of short duration, or are attributable to the need to receive medical care. [X] (a) Attached documentation from encounter provides clinical findings supporting skilled need and homebound status (including what assistance patient requires to leave the home). The encounter with the patient was in whole, or in part, for the following medical condition, which is the primary reason for home health care: Altered mental status Jail: Recent hospitalization for sepsis/bacteremia/L foot wound infection. Routine PICC line care. Cefepime 2 grams IV q 8hrs. Wound care instructions (daily): Wash left foot wound with soap and water rinsing copiously. Gently pat dry. [place] periwound area with povidone iodine swab stick. Insert quarter-inch Nu Gauze into wound, cover with Mepilex dressing and or gauze Kerlex. Physical Therapy: eval and treat Homebound: unable to leave home without assistance 3. Certification and Authentication I certify that I composed the above information based on my clinical judgement relating to this patient's medical condition and, if applicable, clinical findings communicated to me by the NPP or inpatient physician who performed the Home Health Referral. All further orders will be obtained through _Dr Leslie (Community Based Physician - PCP)
--- NOTE | 2020-05-21 13:42 | PDOC.CMDIS ---
- If Service Date Differs Date of service: 05/21/20 Time of Service: 13:43 LACE Index Scoring Tool - Questions: Length of Stay (in days): 7 - 13 Acuity (Admit via E.D.?): Yes Comorbidities: Liver or Renal Disease, Metastatic Solid Tumor E.D. Visits: 4 - Answers: Total Score: 17 Risk of Readmission: High Risk Care Management Discharge Reason for Hospitalization: Pneumonia Discharge Plan: Lester will return home with home health services for nursing and PT. He will require senior care IV antibiotics (4 weeks) with Cefepime . CM coordinated home infusion therapy with [facility] and [facility]. Lester will transport via private vehicle with his in the early afternoon and [facility] will arrive around 2pm to initiate services. In addition to infusion services, Lester will also receive daily dressing changes by nurse. Lester will follow up with his PCP and discharge plan of care. Patient/Family Education Needs: Discharge plan, limitations, follow up plan and Ask Me Three. Services Needed at Discharge: Home Health Care Services, Infusion Therapy, Physical Therapy
--- NOTE | 2020-05-21 16:17 | RESPIRATORY ---
Pt currently uses 2L of oxygen 24hours a day, DME is [employer].
--- NOTE | 2020-05-21 16:31 | RESPIRATORY ---
Patient was set-up on a new Trilogy ventilator during his stay at [facility]. The settings are as follow: AVAPS-AE Vt 370ml Breathe Rate Auto Max Press 20 PS min5/max15 EPAP min5/max 10 on 2-3L O2 bled in Nasal mask size Medium and the DME is [employer].
--- NOTE | 2020-05-22 17:43 | PT.INDS ---
Date of service: 05/22/20 PT Notes Visit Reasons: Altered mental status Inpatient Physical Therapy Discharge Summary Dates: 05/22/2020 Dates of Service: 05/17/2020 through 05/20/2020 This is a clinical summary of care provided on the duration of dates listed above. No charge was made in the completion of this documentation. Referring Doctor: Loly Brown MD PT Orders: PT CONSULT: Limited ability Precautions: Fall risk, standard Patient Profile/Admitting Diagnosis: Lester was initially admitted 05/12/20 with mental status changes, later discovered to be related to Sepsis with Group B strep infection, following left toe amputation, as well as pleural effusion in setting of chronic CHF, and multiple comorbidities listed below. Patient's been referred to PT due to his limited ability/mobility. 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 Is a one-story home, with a ramp to enter. The home was overall handicap accessible. Current Functional Limitations: Dependent on walker for ambulation of short distance, requires some assist for self-care activities, fall risk with all functional transfers requires close supervision, and assist with higher activities. Equipment Owned/DME: Front wheeled walker, and up walker, ramp Subjective: NT. See most recent WIRE WRAPPER MACHINE OPERATOR notes. Objective: General Observation: NT. See most recent WIRE WRAPPER MACHINE OPERATOR notes. Mental Status: NT. See most recent WIRE WRAPPER MACHINE OPERATOR notes. Pain: NT. See most recent WIRE WRAPPER MACHINE OPERATOR notes. ROM: Right Upper Extremity: 90 degrees of abduction, scapular 120 degrees, patient demonstrating shoulder hiking throughout with RC pathology. Otherwise, WNL Left Upper Extremity: 90 degrees of abduction, scapular motion of 120 degrees, again with shoulder aching likely related to her pathology. Otherwise, WNL Right Lower Extremity: Knee 0 to 120 degrees, hypomobile ankle, hip flexion 100 degrees, limited rotation of the hips of about 10 degrees externally and internally Left Lower Extremity: Comparable to right Strength: Right Upper Extremity: Shoulder 3/5 with the above available ROM, with movement pattern suggesting RC pathology. Elbow flexion, extension 4/5, wrist all planes 3+/ Left Upper Extremity: Comparable with right upper extremity Right Lower Extremity: Hip flexion 3+/5, knee flexion/extension 5/5, 0/5 ankle Left Lower Extremity: Comparable with right LE Sensation: Intact light touch throughout all extremities Bed Mobility/Transfers: Sit to stand at walker, CG Stand to sit, CG Bed mobility can be evaluated later session, as patient was found sitting today, and encouraged him to remain out of bed. Gait: RW, leaning forward on forearms, close supervision, 20 feet. Unsteady gait, wide support, short stride length. Verbal cues required for safety. Balance: Static Sitting: Good Dynamic Sitting: Poor Static Standing: Poor Dynamic Standing: Poor Assessment: Patient demonstrated low motivation and limited compliance during this episode of care. Patient is a 80 year old male referred to physical therapy services with the diagnosis of s/p sepsis related to strep infection status post toe amputation, in the setting of CHF, pleural effusion, and above documented comorbidities. Patient presents with clinical signs and symptoms consistent with referred diagnosis, as demonstrated by the following impairment level findings: Global weakness, poor balance, poor proprioception related to chronic neuropathy of the lower extremities and acute left toe amputation, and chronic pain through the right buttock status post cancer limiting ability to stand up tall. Goals: Goals X1 week 1. Supine-Sit independent NOT MET 2. Sit-Supine independent NOT MET 3. Sit-Stand independent NOT MET 4. Stand-Sit independent NOT MET 5. Bed-Chair supervision with walker NOT MET 6. Chair-Bed supervision with walker NOT MET 7. Gait 40 feet with walker, supervision NOT MET 8. Independent with home exercise program NOT MET 9. Balance, fair static weightbearing balance with walker, as demonstrated by ability to ambulate with distant supervision. Due to lower extremity neuropathy, unrealistic to expect anything without assistive device. NOT MET DISCHARGE RECOMMENDATIONS: Home with , and patient physical therapy referral TREATMENT CODE/TIME: [place]. Thank you for the opportunity to participate in the care of this patient. Liliane Morales PT, DPT, CLT [facility] [place], [place]
== END 2020-05-21 13:31 | disposition home health service (06) | DRG 871 ==
LOC: ER 05-12 02:54 → ICU 05-12 08:33 → MS 05-18 10:24
PROVIDERS: Internal Medicine; Admitting Provider General Practice; Emergency Provider Student in an Organized Health Care Education/Training Program; PCP Internal Medicine; Visit Provider Internal Medicine
DX: A40.8 Other streptococcal sepsis (principal); J96.22 Acute and chronic respiratory failure with hypercapnia; J96.21 Acute and chronic respiratory failure with hypoxia; T87.44 Infection of amputation stump, left lower extremity; C79.51 Secondary malignant neoplasm of bone; I13.0 Hypertensive heart and chronic kidney disease with heart failure and stage 1 through stage 4 chronic kidney disease, or unspecified chronic kidney disease; E66.2 Morbid (severe) obesity with alveolar hypoventilation; M86.672 Other chronic osteomyelitis, left ankle and foot; Z89.422 Acquired absence of other left toe(s); E78.00 Pure hypercholesterolemia, unspecified; I50.9 Heart failure, unspecified; Z11.59 Encounter for screening for other viral diseases; D53.9 Nutritional anemia, unspecified; C61 Malignant neoplasm of prostate; N18.3 Chronic kidney disease, stage 3 (moderate); E78.5 Hyperlipidemia, unspecified; G62.0 Drug-induced polyneuropathy; T45.1X5A Adverse effect of antineoplastic and immunosuppressive drugs, initial encounter; Z66 Do not resuscitate; G47.33 Obstructive sleep apnea (adult) (pediatric); I73.9 Peripheral vascular disease, unspecified; I87.2 Venous insufficiency (chronic) (peripheral); Z87.820 Personal history of traumatic brain injury; T87.81 Dehiscence of amputation stump; I27.20 Pulmonary hypertension, unspecified; Z68.36 Body mass index [BMI] 36.0-36.9, adult; B95.4 Other streptococcus as the cause of diseases classified elsewhere
CPT/HCPCS: 36410; 36415; 36573; 51702; 71045; 71275; 80048; 80053; 82805; 84145; 85027; 86850; 86900; 86901; 86920; 87040; 87077; 93005; 94618; 96361; 96365; 96366; 96368; 96375; 97110; 97162; 99223; 99232; 99233; 99239; 99285; 99308; J1650; NC; U0003; 36600; 70450; 73630; 81003; 81015; 82140; 82270; 82607; 82728; 82746; 83540; 83605; 83615; 83735; 83880; 84484; 85014; 85018; 85025; 85379; 85610; 85730; 86140; 87070; 87186; 87205; 93010; 93306; 93970; 94010; 94660; J0131; J0456; J0696; J1940; J2405; J2540; J2543; J3490; P9016

== ENCOUNTER 2020-05-25 21:56 | Outpatient (REF) | payer MEDICARE, SELFPAY ==
[2020-05-25 21:27] LABS: Abs Immature Grans 0.01 k/cumm (0.0-0.09); Absolute Basophil Count 0.03 k/cumm (0.0-0.2); Absolute Eosinophil Count 0.02 k/cumm (0.0-0.7); Absolute Lymphocyte Count 0.83 k/cumm (1.2-3.4); Absolute Monocyte Count 0.53 k/cumm (0.11-0.7); Absolute Neutrophil Count 1.49 k/cumm (1.2-6.7); Eosinophils % 0.7; HGB 8.7 g/dL (13.5-17.5); Immature Grans % 0.3 %; Lymphocytes % 28.5; Mean Corp. HGB Concentration 31.1 g/dL (32.0-36.0); Mean Corpuscular Hemoglobin 36.6 pg (27.0-33.0); Mean Corpuscular Volume 117.6 fL (80-95); Mean Platelet Volume 9.9 fL (8.0-11.0); Monocytes % 18.2; Neutrophils % 51.3; Platelet Count 281 x1000/uL (130-400); RBC 2.38 m/cumm (4.50-6.00); RBC Distribution Width 19.3 % (11.8-14.1); White Blood Cell Count 2.91 k/cumm (4.4-10.8)
[2020-05-25 21:28] LABS: Anion Gap 3.4 mmol/L (3-11); BUN 23 mg/dL (7-18); C-Reactive Protein 0.26 mg/dL (0.0-0.3); CO2 35.6 mmol/L (21.0-32.0); CREATININE 1.16 mg/dL (0.70-1.30); Calcium 9.3 mg/dL (8.5-10.1); Chloride 102 mmol/L (98-107); Glucose 96 mg/dL (74-106); Potassium 4.5 mmol/L (3.5-5.1); Sodium 141 mmol/L (136-145)
[2020-05-25 21:55] LABS: Diff Comment RBC Morph Reviewed; Macrocytosis 3+
[2020-05-25 21:58] LABS: Poikilocytes 1+
== END 2020-05-25 22:16 ==
LOC: LBN 21:56
PROVIDERS: PCP Internal Medicine; Visit Provider Internal Medicine
DX: B95.4 Other streptococcus as the cause of diseases classified elsewhere (principal); N18.3 Chronic kidney disease, stage 3 (moderate)
CPT/HCPCS: 80048; 85025; 86140

== ENCOUNTER 2020-06-01 16:04 | Outpatient (REF) | payer MEDICARE, SELFPAY ==
[2020-06-01 16:35] LABS: Absolute Basophil Count 0.03 10^3/uL (0.0-0.2); Absolute Eosinophil Count 0.08 10^3/uL (0.0-0.7); Absolute Lymphocyte Count 0.81 10^3/uL (1.2-3.4); Absolute Monocyte Count 0.59 10^3/uL (0.1-0.8); Absolute Neutrophil Count 1.61 10^3/uL (1.2-6.7); Eosinophils % 2.6; HCT 28.5 % (40.0-50.0); HGB 9.2 g/dL (13.5-17.5); MCH 37.1 pg (27.0-33.0); MCHC 32.3 % (32.0-36.0); MCV 114.9 fL (80-95); MPV 10.1 fL (8.0-11.0); Monocytes % 18.9; Neutrophils % 51.5; Platelet Count 210 10^3/uL (130-400); RBC 2.48 10^6/uL (4.36-5.78); RDW 17.5 % (11.8-14.1); RDW-SD 73.8 fL; WBC 3.12 10^3/uL (4.4-10.8)
[2020-06-01 16:57] LABS: BUN 30 mg/dL (7-18); C-Reactive Protein 0.15 mg/dL (0.0-0.3); CREATININE 1.36 mg/dL (0.70-1.30); Calcium 8.6 mg/dL (8.5-10.1); Chloride 107 mmol/L (98-107); Estimated GFR 50.55 (mL/min/1.73m2); Glucose 114 mg/dL (74-106); Potassium 4.5 mmol/L (3.5-5.1); Sodium 145 mmol/L (136-145)
== END 2020-06-01 16:24 ==
LOC: NCHCN 16:04
PROVIDERS: PCP Internal Medicine; Visit Provider Internal Medicine
DX: A40.9 Streptococcal sepsis, unspecified (principal)
CPT/HCPCS: 80048; 85025; 86140

== ENCOUNTER 2020-06-08 21:38 | Outpatient (REF) | payer MEDICARE, SELFPAY ==
[2020-06-08 20:41] LABS: Absolute Basophil Count 0.02 10^3/uL (0.0-0.2); Absolute Eosinophil Count 0.12 10^3/uL (0.0-0.7); Absolute Lymphocyte Count 0.78 10^3/uL (1.2-3.4); Absolute Monocyte Count 0.52 10^3/uL (0.1-0.8); Absolute Neutrophil Count 1.63 10^3/uL (1.2-6.7); Basophils % 0.7; Eosinophils % 3.9; HCT 29.8 % (40.0-50.0); HGB 9.4 g/dL (13.5-17.5); Lymphocytes % 25.4; MCH 36.4 pg (27.0-33.0); MCHC 31.5 % (32.0-36.0); MCV 115.5 fL (80-95); MPV 10.5 fL (8.0-11.0); Monocytes % 16.9; Neutrophils % 53.1; Nucleated RBC 0 %; Platelet Count 151 10^3/uL (130-400); RBC 2.58 10^6/uL (4.36-5.78); RDW 15.9 % (11.8-14.1); RDW-SD 68.3 fL; WBC 3.07 10^3/uL (4.4-10.8)
[2020-06-08 20:47] LABS: Anion Gap 3.1 mmol/L (3-11); BUN 32 mg/dL (7-18); C-Reactive Protein 0.08 mg/dL (0.0-0.3); CO2 34.9 mmol/L (21.0-32.0); CREATININE 1.25 mg/dL (0.70-1.30); Calcium 8.7 mg/dL (8.5-10.1); Chloride 108 mmol/L (98-107); Estimated GFR 55.72 (mL/min/1.73m2); Glucose 139 mg/dL (74-106); Sodium 146 mmol/L (136-145)
== END 2020-06-08 21:58 ==
LOC: NCHCN 21:38
PROVIDERS: PCP Internal Medicine; Visit Provider Internal Medicine
DX: A40.8 Other streptococcal sepsis (principal); B95.61 Methicillin susceptible Staphylococcus aureus infection as the cause of diseases classified elsewhere
CPT/HCPCS: 80048; 85025; 86140

== ENCOUNTER 2020-06-15 21:27 | Outpatient (REF) | payer MEDICARE, SELFPAY ==
[2020-06-15 21:41] LABS: Abs Immature Grans 0.01 10^3/uL (0.0-0.06); Absolute Basophil Count 0.02 10^3/uL (0.0-0.2); Absolute Eosinophil Count 0.11 10^3/uL (0.0-0.7); Absolute Monocyte Count 0.51 10^3/uL (0.1-0.8); Absolute Neutrophil Count 1.92 10^3/uL (1.2-6.7); Basophils % 0.6; Eosinophils % 3.2; HCT 30.4 % (40.0-50.0); HGB 9.6 g/dL (13.5-17.5); Immature Grans % 0.3; Lymphocytes % 25.9; MCH 36.2 pg (27.0-33.0); MCHC 31.6 % (32.0-36.0); MCV 114.7 fL (80-95); MPV 10.5 fL (8.0-11.0); Monocytes % 14.7; Neutrophils % 55.3; Nucleated RBC 0 %; Platelet Count 155 10^3/uL (130-400); RBC 2.65 10^6/uL (4.36-5.78); RDW 15.3 % (11.8-14.1); RDW-SD 64.8 fL; WBC 3.47 10^3/uL (4.4-10.8)
[2020-06-15 21:51] LABS: Anion Gap 4.8 mmol/L (3-11); BUN 26 mg/dL (7-18); C-Reactive Protein 0.11 mg/dL (0.0-0.3); CO2 33.2 mmol/L (21.0-32.0); CREATININE 1.43 mg/dL (0.70-1.30); Calcium 9.2 mg/dL (8.5-10.1); Chloride 110 mmol/L (98-107); Glucose 96 mg/dL (74-106); Sodium 148 mmol/L (136-145)
[2020-06-15 22:17] LABS: Macrocytosis 3+
== END 2020-06-15 21:47 ==
LOC: NCHCN 21:27
PROVIDERS: PCP Internal Medicine; Visit Provider Internal Medicine
DX: A40.9 Streptococcal sepsis, unspecified (principal); N18.3 Chronic kidney disease, stage 3 (moderate); D53.9 Nutritional anemia, unspecified
CPT/HCPCS: 80048; 85025; 86140

== ENCOUNTER 2020-06-22 20:36 | Outpatient (REF) | payer MEDICARE, SELFPAY ==
[2020-06-22 21:39] LABS: Absolute Basophil Count 0.02 10^3/uL (0.0-0.2); Absolute Eosinophil Count 0.16 10^3/uL (0.0-0.7); Absolute Lymphocyte Count 0.96 10^3/uL (1.2-3.4); Absolute Monocyte Count 0.53 10^3/uL (0.1-0.8); Absolute Neutrophil Count 1.76 10^3/uL (1.2-6.7); Basophils % 0.6; Eosinophils % 4.7; HCT 31.2 % (40.0-50.0); HGB 9.8 g/dL (13.5-17.5); MCH 35.3 pg (27.0-33.0); MCHC 31.4 % (32.0-36.0); MCV 112.2 fL (80-95); MPV 10.3 fL (8.0-11.0); Monocytes % 15.5; Neutrophils % 51.2; Nucleated RBC 0 %; Platelet Count 192 10^3/uL (130-400); RBC 2.78 10^6/uL (4.36-5.78); RDW 14.6 % (11.8-14.1); RDW-SD 60.6 fL; WBC 3.43 10^3/uL (4.4-10.8)
[2020-06-22 21:42] LABS: BUN 33 mg/dL (7-18); CREATININE 1.34 mg/dL (0.70-1.30); Chloride 107 mmol/L (98-107); Estimated GFR 51.42 (mL/min/1.73m2); Glucose 85 mg/dL (74-106); Potassium 4.6 mmol/L (3.5-5.1); Sodium 144 mmol/L (136-145)
[2020-06-22 21:51] LABS: C-Reactive Protein 0.11 mg/dL (0.0-0.3)
[2020-06-22 22:39] LABS: Diff Comment RBC Morph Reviewed
[2020-06-22 22:40] LABS: Macrocytosis 3+
== END 2020-06-22 20:56 ==
LOC: LBN 20:36
PROVIDERS: PCP Internal Medicine; Visit Provider Podiatrist
DX: A40.9 Streptococcal sepsis, unspecified (principal); B95.4 Other streptococcus as the cause of diseases classified elsewhere
CPT/HCPCS: 80048; 85025; 86140

== ENCOUNTER 2020-07-01 20:19 | Outpatient (REF) | payer MEDICARE, SELFPAY ==
[2020-07-01 21:12] LABS: Absolute Basophil Count 0.02 10^3/uL (0.0-0.2); Absolute Eosinophil Count 0.08 10^3/uL (0.0-0.7); Absolute Lymphocyte Count 1.06 10^3/uL (1.2-3.4); Absolute Monocyte Count 0.43 10^3/uL (0.1-0.8); Absolute Neutrophil Count 1.89 10^3/uL (1.2-6.7); Basophils % 0.6; Eosinophils % 2.3; HCT 33.8 % (40.0-50.0); HGB 10.7 g/dL (13.5-17.5); Lymphocytes % 30.5; MCH 35.1 pg (27.0-33.0); MCHC 31.7 % (32.0-36.0); MCV 110.8 fL (80-95); MPV 10.3 fL (8.0-11.0); Monocytes % 12.4; Neutrophils % 54.2; Nucleated RBC 0 %; Platelet Count 204 10^3/uL (130-400); RBC 3.05 10^6/uL (4.36-5.78); RDW 14.3 % (11.8-14.1); RDW-SD 58.3 fL; WBC 3.48 10^3/uL (4.4-10.8)
[2020-07-01 21:29] LABS: Diff Comment RBC Morph Reviewed; Macrocytosis 2+
[2020-07-01 21:43] LABS: ALT 27 U/L (16-63); AST 22 U/L (15-37); Albumin 3.2 g/dL (3.4-5.0); Alkaline Phosphatase 84 U/L (46-116); BUN 32 mg/dL (7-18); Bilirubin, Total 0.2 mg/dL (0.2-1.0); CREATININE 1.49 mg/dL (0.70-1.30); Chloride 104 mmol/L (98-107); Glucose 141 mg/dL (74-106); Potassium 4.4 mmol/L (3.5-5.1); Sodium 145 mmol/L (136-145); Total Protein 6.6 g/dL (6.4-8.2)
[2020-07-02 18:07] LABS: PSA, Diagnostic 13.9 ng/mL (0.0-6.5)
[2020-07-08 14:36] LABS: Testosterone, Total <7.0 ng/dL (240-950)
== END 2020-07-01 20:39 ==
LOC: LBN 20:19
PROVIDERS: PCP Internal Medicine; Visit Provider Internal Medicine
DX: C61 Malignant neoplasm of prostate (principal); N18.3 Chronic kidney disease, stage 3 (moderate)
CPT/HCPCS: 80053; 84403; 84153; 85025

== ENCOUNTER 2020-08-12 15:15 | Outpatient (REF) | payer MEDICARE, SELFPAY ==
[2020-08-12 22:13] LABS: Abs Immature Grans 0.01 10^3/uL (0.0-0.06); Absolute Basophil Count 0.02 10^3/uL (0.0-0.2); Absolute Eosinophil Count 0.05 10^3/uL (0.0-0.7); Absolute Lymphocyte Count 0.99 10^3/uL (1.2-3.4); Absolute Monocyte Count 0.45 10^3/uL (0.1-0.8); Absolute Neutrophil Count 2.35 10^3/uL (1.2-6.7); Basophils % 0.5; Eosinophils % 1.3; HCT 33.8 % (40.0-50.0); HGB 10.8 g/dL (13.5-17.5); Immature Grans % 0.3; Lymphocytes % 25.6; MCH 34.6 pg (27.0-33.0); MCV 108.3 fL (80-95); MPV 9.7 fL (8.0-11.0); Monocytes % 11.6; Neutrophils % 60.7; Nucleated RBC 0 %; Platelet Count 215 10^3/uL (130-400); RBC 3.12 10^6/uL (4.36-5.78); RDW 15.9 % (11.8-14.1); RDW-SD 63.1 fL; WBC 3.87 10^3/uL (4.4-10.8)
[2020-08-12 22:34] LABS: Macrocytosis 1+
[2020-08-12 22:35] LABS: Tear Drop Cells 2+
[2020-08-12 22:45] LABS: ALT 22 U/L (16-63); AST 21 U/L (15-37); Albumin 3.4 g/dL (3.4-5.0); Alkaline Phosphatase 90 U/L (46-116); Anion Gap 4.6 mmol/L (3-11); BUN 29 mg/dL (7-18); Bilirubin, Total 0.3 mg/dL (0.2-1.0); CO2 33.4 mmol/L (21.0-32.0); CREATININE 1.49 mg/dL (0.70-1.30); Calcium 9.3 mg/dL (8.5-10.1); Chloride 104 mmol/L (98-107); Glucose 89 mg/dL (74-106); Potassium 4.5 mmol/L (3.5-5.1); Sodium 142 mmol/L (136-145); Total Protein 6.6 g/dL (6.4-8.2)
[2020-08-13 17:53] LABS: PSA, Diagnostic 12.8 ng/mL (0.0-6.5)
[2020-08-16 16:40] LABS: Testosterone, Total <7.0 ng/dL (240-950)
== END 2020-08-12 15:35 ==
LOC: NCHCN 15:15
PROVIDERS: PCP Internal Medicine; Visit Provider Internal Medicine
DX: C79.51 Secondary malignant neoplasm of bone (principal); C61 Malignant neoplasm of prostate
CPT/HCPCS: 80053; 84402; 84403; 84153; 85025

== ENCOUNTER 2020-09-22 17:03 | Outpatient (REF) | payer MEDICARE, SELFPAY ==
[2020-09-22 22:40] LABS: Abs Immature Grans 0.01 10^3/uL (0.0-0.06); Absolute Basophil Count 0.02 10^3/uL (0.0-0.2); Absolute Eosinophil Count 0.04 10^3/uL (0.0-0.7); Absolute Lymphocyte Count 1.22 10^3/uL (1.2-3.4); Absolute Neutrophil Count 2.08 10^3/uL (1.2-6.7); Basophils % 0.5; Eosinophils % 1.1; HCT 32.7 % (40.0-50.0); HGB 10.7 g/dL (13.5-17.5); Immature Grans % 0.3; Lymphocytes % 32.4; MCH 35.8 pg (27.0-33.0); MCHC 32.7 % (32.0-36.0); MCV 109.4 fL (80-95); MPV 9.9 fL (8.0-11.0); Monocytes % 10.6; Neutrophils % 55.1; Nucleated RBC 0 %; Platelet Count 247 10^3/uL (130-400); RBC 2.99 10^6/uL (4.36-5.78); RDW 17.6 % (11.8-14.1); RDW-SD 71.4 fL; WBC 3.77 10^3/uL (4.4-10.8)
[2020-09-22 23:08] LABS: Diff Comment Diff Reviewed
[2020-09-22 23:09] LABS: Anisocytosis 1+
[2020-09-22 23:10] LABS: Macrocytosis 1+
[2020-09-29 14:55] LABS: Testosterone, Total <7.0 ng/dL (240-950)
== END 2020-09-22 17:23 ==
LOC: NCHCN 17:03
PROVIDERS: PCP Internal Medicine; Visit Provider Internal Medicine
DX: C61 Malignant neoplasm of prostate (principal)
CPT/HCPCS: 84402; 84403; 84153; 85025

== ENCOUNTER 2020-10-05 15:05 | Outpatient (REF) | payer MEDICARE, SELFPAY ==
[2020-10-05 22:31] LABS: ALT 24 U/L (16-63); AST 24 U/L (15-37); Albumin 3.6 g/dL (3.4-5.0); Alkaline Phosphatase 91 U/L (46-116); Anion Gap 1.8 mmol/L (3-11); BUN 33 mg/dL (7-18); Bilirubin, Total 0.4 mg/dL (0.2-1.0); CO2 36.2 mmol/L (21.0-32.0); CREATININE 1.44 mg/dL (0.70-1.30); Calcium 8.9 mg/dL (8.5-10.1); Chloride 107 mmol/L (98-107); Estimated GFR 47.32 (mL/min/1.73m2); Glucose 144 mg/dL (74-106); Potassium 4.4 mmol/L (3.5-5.1); Sodium 145 mmol/L (136-145); Total Protein 6.6 g/dL (6.4-8.2)
== END 2020-10-05 15:25 ==
LOC: NCHCN 15:05
PROVIDERS: PCP Internal Medicine; Visit Provider Internal Medicine
DX: C79.51 Secondary malignant neoplasm of bone (principal)
CPT/HCPCS: 80053

== ENCOUNTER 2020-11-16 18:54 | Outpatient (REF) | payer MEDICARE, SELFPAY ==
[2020-11-16 21:33] LABS: Abs Immature Grans 0.01 10^3/uL (0.0-0.06); Absolute Basophil Count 0.03 10^3/uL (0.0-0.2); Absolute Eosinophil Count 0.05 10^3/uL (0.0-0.7); Absolute Lymphocyte Count 1.22 10^3/uL (1.2-3.4); Absolute Monocyte Count 0.44 10^3/uL (0.1-0.8); Absolute Neutrophil Count 2.65 10^3/uL (1.2-6.7); Basophils % 0.7; Eosinophils % 1.1; HGB 10.5 g/dL (13.5-17.5); Immature Grans % 0.2; Lymphocytes % 27.7; MCH 37.8 pg (27.0-33.0); MCHC 32.8 % (32.0-36.0); MCV 115.1 fL (80-95); MPV 9.9 fL (8.0-11.0); Neutrophils % 60.3; Nucleated RBC 1 %; Platelet Count 206 10^3/uL (130-400); RBC 2.78 10^6/uL (4.36-5.78); RDW 15.5 % (11.8-14.1); RDW-SD 65.8 fL
[2020-11-16 21:50] LABS: Macrocytosis 3+
[2020-11-16 22:01] LABS: ALT 25 U/L (16-63); AST 25 U/L (15-37); Albumin 3.5 g/dL (3.4-5.0); Alkaline Phosphatase 77 U/L (46-116); Anion Gap 2.6 mmol/L (3-11); BUN 30 mg/dL (7-18); Bilirubin, Total 0.4 mg/dL (0.2-1.0); CO2 37.4 mmol/L (21.0-32.0); CREATININE 1.41 mg/dL (0.70-1.30); Calcium 9.1 mg/dL (8.5-10.1); Chloride 105 mmol/L (98-107); Estimated GFR 48.49 (mL/min/1.73m2); Glucose 97 mg/dL (74-106); Sodium 145 mmol/L (136-145); Total Protein 6.7 g/dL (6.4-8.2)
[2020-11-17 17:32] LABS: PSA, Diagnostic 8.5 ng/mL (0.0-6.5)
[2020-11-21 15:30] LABS: Testosterone, Total <7.0 ng/dL (240-950)
== END 2020-11-16 19:14 ==
LOC: NCHCN 18:54
PROVIDERS: PCP Internal Medicine; Visit Provider Internal Medicine
DX: C79.51 Secondary malignant neoplasm of bone (principal); C61 Malignant neoplasm of prostate
CPT/HCPCS: 80053; 84402; 84403; 84153; 85025

== ENCOUNTER 2020-12-30 15:52 | Outpatient (REF) | payer MEDICARE, SELFPAY ==
[2020-12-30 22:00] LABS: Abs Immature Grans 0.01 10^3/uL (0.0-0.06); Absolute Basophil Count 0.02 10^3/uL (0.0-0.2); Absolute Eosinophil Count 0.04 10^3/uL (0.0-0.7); Absolute Neutrophil Count 2.27 10^3/uL (1.2-6.7); Basophils % 0.6; Eosinophils % 1.1; HCT 32.3 % (40.0-50.0); HGB 10.5 g/dL (13.5-17.5); Immature Grans % 0.3; Lymphocytes % 22.6; MCH 36.8 pg (27.0-33.0); MCHC 32.5 % (32.0-36.0); MCV 113.3 fL (80-95); MPV 9.9 fL (8.0-11.0); Monocytes % 11.3; Neutrophils % 64.1; Nucleated RBC 0 %; Platelet Count 220 10^3/uL (130-400); RBC 2.85 10^6/uL (4.36-5.78); RDW 15.1 % (11.8-14.1); RDW-SD 63.7 fL; WBC 3.54 10^3/uL (4.4-10.8)
[2020-12-30 22:23] LABS: ALT 21 U/L (16-63); AST 31 U/L (15-37); Albumin 3.5 g/dL (3.4-5.0); Alkaline Phosphatase 101 U/L (46-116); BUN 30 mg/dL (7-18); Bilirubin, Total 0.3 mg/dL (0.2-1.0); CREATININE 1.7 mg/dL (0.70-1.30); Chloride 104 mmol/L (98-107); Estimated GFR 39.07 (mL/min/1.73m2); Glucose 112 mg/dL (74-106); Macrocytosis 3+; Polychromasia Present; Potassium 4.4 mmol/L (3.5-5.1); Sodium 144 mmol/L (136-145); Total Protein 6.6 g/dL (6.4-8.2)
[2020-12-31 17:31] LABS: PSA, Diagnostic 7.3 ng/mL (0.0-6.5)
[2021-01-04 14:29] LABS: Testosterone, Total <7.0 ng/dL (240-950)
== END 2020-12-30 15:53 | disposition home or self-care (01) ==
LOC: NCHCN 15:52
PROVIDERS: PCP Internal Medicine; Visit Provider Internal Medicine
DX: C79.51 Secondary malignant neoplasm of bone (principal); C61 Malignant neoplasm of prostate
CPT/HCPCS: 80053; 84402; 84403; 84153; 85025

== ENCOUNTER 2021-01-03 13:00 | Inpatient (IN) | payer MEDICARE, SELFPAY ==
[2021-01-03] VITALS (53 sets, daily range): BP systolic 90–142; BP diastolic 36–89; PULSE 61–95; RESP 7–19; TEMP 37.2–39.4; O2SAT 94–99
--- NOTE | 2021-01-03 13:00 | DI.CT_ITS ---
EXAM: CT HEAD WO CLINICAL HISTORY: AMS. TECHNIQUE: Imaging Protocol: Axial computed tomography images with coronal and sagittal reformatted images were created and reviewed COMPARISON: No exams were available for comparison FINDINGS: Ventricles and Extra axial spaces: Normal in size and morphology for the patient's age. Hemorrhage: None. Cerebral parenchyma: There are areas of decreased attenuation in the white matter most consistent wit h chronic microvascular ischemic changes. No acute territorial infarct is present. Midline shift: None. Brainstem/Cerebellum: Normal. Calvarium: Normal. Visualized Paranasal sinuses/Mastoids: Clear. Soft Tissues: Unremarkable. IMPRESSION: No acute intracranial process. RADIATION DOSE DELIVERED: 867.4mGy.cm Total DLP DATA REPOSITORY: All CT scans at this facility are submitted to the National Radiology Data Registry (NRDR) Dose Index Registry (DIR) with the [employer] (ACR). RADIATION OPTIMIZATION: All CT scans at this facility use at least one of these dose optimization te chniques: automated exposure control; mA and/or kV adjustment per patient size (includes targeted exa ms where dose is matched to clinical indication); or iterative reconstruction.
--- NOTE | 2021-01-03 13:00 | RT.EKG_ITS ---
APPROVED REPORT Exam: Resting ECG Patient Location: E HR:72 bpm ECG Measurements Heart Rate 72 AXIS LA 138 P 44 QRSd 81 QRS 52 QT 394 T 25 QTc 433 Conclusion Sinus rhythm...normal P axis, V-rate 60- 99
--- NOTE | 2021-01-03 13:04 | DI.RAD_ITS ---
EXAM: XR CHEST 1V IN DI DEPT CLINICAL HISTORY: ams, fever TECHNIQUE: 2D digital imaging was performed. COMPARISON: CT CT CHEST PE CTA from 05/14/2020 CR XR PORTABLE CHEST AP POST LINE from 05/19/2020 FINDINGS: MEDIASTINUM: Normal. HEART: Cardiomegaly. PULMONARY VASCULATURE: Normal. LUNGS: There is an infiltrate in the left lung base. PLEURAL SPACE: No pleural effusion or pneumothorax. BONE:Sclerotic regions in the bones consistent with osseous metastatic disease. OTHER FINDINGS:Normal. IMPRESSION: Left basilar opacity. This may represent atelectasis, pleural effusion or pneumonia. DATA REPOSITORY: RADIATION DOSE DELIVERED:
[2021-01-03 13:39] LABS: Abs Immature Grans 0.01 10^3/uL (0.0-0.06); Absolute Basophil Count 0.01 10^3/uL (0.0-0.2); Absolute Eosinophil Count 0.03 10^3/uL (0.0-0.7); Absolute Lymphocyte Count 0.27 10^3/uL (1.2-3.4); Absolute Monocyte Count 0.18 10^3/uL (0.1-0.8); Absolute Neutrophil Count 4.42 10^3/uL (1.2-6.7); Basophils % 0.2; Eosinophils % 0.6; HCT 29.7 % (40.0-50.0); HGB 9.7 g/dL (13.5-17.5); Immature Grans % 0.2; Lymphocytes % 5.5; MCHC 32.7 % (32.0-36.0); MCV 113.4 fL (80-95); MPV 9.4 fL (8.0-11.0); Monocytes % 3.7; Neutrophils % 89.8; Nucleated RBC 0 %; Platelet Count 181 10^3/uL (130-400); RBC 2.62 10^6/uL (4.36-5.78); RDW 15.2 % (11.8-14.1); RDW-SD 63.5 fL; WBC 4.92 10^3/uL (4.4-10.8)
[2021-01-03] MEDS: ACETAMINOPHEN 1,000 MG/100 ML BTL 400 MG IVPB (13:44)
[2021-01-03] MEDS: Normal Saline 1,000 ML 1000 ML IV (13:45)
--- NOTE | 2021-01-03 13:46 | NUR.NOTE ---
returned from CT at 1338. at bedside
[2021-01-03 13:47] LABS: Bilirubin Negative (Negative); Blood Negative (Negative); Clarity Clear (Clear); Glucose Negative (Negative); Ketones Negative (Negative); Leukocyte Esterase Negative (Negative); Nitrite Negative (Negative); Urobilinogen 0.2 EU/dL (Up TO 0.2); pH 5.5 (5-8)
--- NOTE | 2021-01-03 13:51 | DI.VRAD_ITS ---
PROCEDURE INFORMATION: Exam: CT Head Without Contrast Exam date and time: 01/03/2021 1:29 PM Age: 80 years old Clinical indication: AMS TECHNIQUE: Imaging protocol: Computed tomography of the head without contrast. Radiation optimization: All CT scans at this facility use at least one of these dose optimization techniques: automated exposure control; mA and/or kV adjustment per patient size (includes targeted exams where dose is matched to clinical indication); or iterative reconstruction. COMPARISON: CT HEAD WO 05/12/2020 1:24 AM FINDINGS: Brain: Age-related involutional changes and chronic microvascular ischemic disease. No evidence for acute transcortical infarct. No mass effect or midline shift. No extra-axial collection. No acute intracranial hemorrhage. Basal cisterns are patent. Cerebral ventricles: No ventriculomegaly. Bones/joints: Unremarkable. No acute fracture. Paranasal sinuses: Visualized sinuses are unremarkable. No fluid levels. Mastoid air cells: Visualized mastoid air cells are well aerated. Soft tissues: Unremarkable. IMPRESSION: No evidence for acute transcortical infarct, acute intracranial hemorrhage, or mass effect. Dictated and Authenticated by: Clinton Melendez MD. Ordering:EDGAR Mortensen MD
--- NOTE | 2021-01-03 13:51 | DI.VRAD_ITS ---
PROCEDURE INFORMATION: Exam: XR Chest Exam date and time: 01/03/2021 1:36 PM Age: 80 years old Clinical indication: AMS, fever TECHNIQUE: Imaging protocol: XR of the chest Views: 1 view. COMPARISON: CR XR PORTABLE CHEST AP POST LINE 05/19/2020 7:40 AM FINDINGS: Lungs: Left lower lobe airspace opacity. Pleural spaces: No pneumothorax. Heart/Mediastinum: Cardiomegaly. Bones/joints: Unremarkable. IMPRESSION: Left lower lobe airspace opacity. This may represent atelectasis, pneumonia, and/or a pleural effusion. Dictated and Authenticated by: Clinton Melendez MD. Ordering:EDGAR Mortensen MD
[2021-01-03 13:55] LABS: ALT 21 U/L (16-63); AST 27 U/L (15-37); Albumin 3.2 g/dL (3.4-5.0); Alkaline Phosphatase 86 U/L (46-116); Anion Gap 3.5 mmol/L (3-11); BUN 33 mg/dL (7-18); Bilirubin, Total 0.4 mg/dL (0.2-1.0); CO2 34.5 mmol/L (21.0-32.0); CREATININE 1.8 mg/dL (0.70-1.30); Chloride 104 mmol/L (98-107); Estimated GFR 36.58 (mL/min/1.73m2); Glucose 137 mg/dL (74-106); Magnesium 2.1 mg/dL (1.8-2.4); PTT Activated 21.9 sec (21.0-27.5); Potassium 4.4 mmol/L (3.5-5.1); Prothrombin Time 10.2 sec (9.3-11.0); Sodium 142 mmol/L (136-145); Total Protein 6.6 g/dL (6.4-8.2)
--- NOTE | 2021-01-03 13:57 | ED.GENADUL_ITS ---
Discharge Plan Disposition Patient Disposition: [facility] INPATIENT Condition: Serious Discharge Details Clinical Impression: Left lower lobe pneumonia, Altered mental status Primary Care Provider: Tonny Leslie ED Provider: Festus Marie Home Meds and New Rx's Prescriptions: No Action metoprolol succinate 100 MG tablet extended release 24 hr 100 mg PO DAILY RF: 0 Lupron Depot (4 month) 30 MG syringe kit 30 mg IM .Q4 months RF: 0 multivitamin tablet 1 tab PO DAILY RF: 0 fluticasone propionate 50 mcg/actuation spray,suspension 1 spray BRIAN DAILY RF: 0 Xgeva 120 mg/1.7 mL (70 mg/mL) solution 120 mg SC Q6W RF: 0 lisinopril 5 mg tablet 10 mg PO DAILY Qty: 2 RF: 0 gabapentin 300 mg capsule 800 mg PO BID RF: 0 zinc oxide 20 % Ointment 1 applic topical TID Qty: 30 RF: 0 clotrimazole 1 % Cream 1 applic topical TID Qty: 30 RF: 0 vits A and D-white pet-lanolin Ointment 1 applic topical TID Qty: 56 RF: 0 calcium carbonate-vitamin D3 [Calcium 600 + D(3)] 600 mg(1,500mg) -400 unit Tablet 1 tab PO DAILY RF: 0 furosemide 40 mg Tablet 40 mg PO BID@0830,1600 Qty: 14 RF: 0 fentanyl 50 mcg/hr patch 72 hour 25 mcg transdermal Q48H RF: 0 fentanyl 12 mcg/hr Patch 72 Hour 1 patch TRANSDERMAL Q48H RF: 0 Medical Decision Making This is a 80-year-old male patient presenting via EMS with a Dilip history that includes CHF, metastatic prostate cancer, high cholesterol, hypertension, peripheral neuropathy, toxic metabolic encephalopathy, presenting to the ER today with altered mental status and fever. I was able to confirm story with patient's . Patient had his second Covid vaccine on Monday. No medications were given prior to arrival. Patient is moderately altered and cannot partake actively in in HPI or examination. Unable to obtain ROS. Given his presentation, will initiate IV x2, gentle hydration with 1 L IV fluid given his history of CHF. Will obtain both a mental status and septic work-up. He will also be given IV Tylenol as I do not feel as though he can safely tolerate p.o. intake at the moment. His lung sounds are diminished bilaterally worse on the left, upon reviewing previous visit it appears that he was admitted for similar presentation potential pneumonia. No focal deficit, less likely stroke but will obtain CT imaging of the head. Will obtain blood cultures and I would like to start antibiotic therapy. Laboratory values reveal a white blood cell count of 4.92 hemoglobin 9.7 hematocrit 29.7 platelet count 181, lactate 1.2 sodium 142 potassium 4.4, BUN 33 creatinine 1.8 with a GFR of 36.58. Glucose 137 magnesium 2.1 troponin less than 0.05. BNP 1176, this appears to be below his baseline. Urinalysis negative for obvious infection. Chest x-ray suspicious for left lower lobe pneumonia. Will initiate 2 g IV Rocephin and 500 IV azithromycin. Temperature responding nicely to IV fluids and Tylenol. Patient is still able to protect his airway without difficulty, repeat O2 sats 96% on room air. Recent blood pressure 135/72. Clinically given likely left lobe pneumonia, no m eningeal signs, low suspicion for meningitis, I do not believe that emergent LP is necessary. Will contact our hospitalist team to discuss admission for left lower lobe pneumonia and altered mental status Medical Records Medical records reviewed: Yes I reviewed the patient's medical records. Imaging Data Radiologic Study: Attestation: I personally reviewed and interpreted this imaging study as follows: Imaging: CT Scan Radiologist's impression: CT imaging of head read by radiology as no evidence for acute transcortical infarct, acute intracranial hemorrhage, or mass-effect. Radiologic Study #2: Attestation: I personally reviewed and interpreted this imaging study as follows: Imaging: X-Ray Radiologist's impression: Read by radiology as left lower lobe airspace opacity. Lab Data Lab results reviewed: Yes I reviewed the patient's lab results. Lab results narrative: 01/03/21 13:20 Blood Blood Culture - Pending 01/03/21 13:10 Blood Blood Culture - Pending Laboratory Tests Range/Units 01/03/21 01/03/21 01/03/21 13:10 13:10 13:10 WBC (4.4-10.8) 10^3/uL RBC (4.36-5.78) 10^6/uL Hgb (13.5-17.5) g/dL Hct (40.0-50.0) % MCV (80-95) fL MCH (27.0-33.0) pg MCHC (32.0-36.0) % RDW (11.8-14.1) % Plt Count (130-400) 10^3/uL MPV (8.0-11.0) fL Immature Gran % Neutrophils % Lymphocytes % Monocytes % Eosinophils % Basophils % Nucleated RBC % % Absolute Neutrophils (1.2-6.7) 10^3/uL Absolute Lymphocytes (1.2-3.4) 10^3/uL Absolute Monocytes (0.1-0.8) 10^3/uL Absolute Eosinophils (0.0-0.7) 10^3/uL Absolute Basophils (0.0-0.2) 10^3/uL RBC Morphology Macrocytosis PT (9.3-11.0) sec 10.2 INR (0.9-1.1) 1.0 APTT (21.0-27.5) sec 21.9 VBG Lactate (0.6-1.4) mmol/L Sodium (136-145) mmol/L 142 Potassium (3.5-5.1) mmol/L 4.4 Chloride (98-107) mmol/L 104 Carbon Dioxide (21.0-32.0) mmol/L 34.5 H Anion Gap (3-11) mmol/L 3.5 BUN (7-18) mg/dL 33 H Creatinine (0.70-1.30) mg/dL 1.8 H Estimated GFR/1.73 m2 (mL/min/1.73m2) 36.58 Glucose (74-106) mg/dL 137 H Calcium (8.5-10.1) mg/dL 9.0 Magnesium (1.8-2.4) mg/dL 2.1 Total Bilirubin (0.2-1.0) mg/dL 0.4 AST (15-37) U/L 27 ALT (16-63) U/L 21 Alkaline Phosphatase (46-116) U/L 86 Troponin I (<0.06) ng/mL < 0.05 NT-Pro-B Natriuret Pep (<300) pg/mL 1176 H Total Protein (6.4-8.2) g/dL 6.6 Albumin (3.4-5.0) g/dL 3.2 L Urine Color (Yellow) Urine Clarity (Clear) Urine pH (5-8) Ur Specific [place] (1.005-1.025) Urine Protein (Negative) mg/dL Urine Ketones (Negative) mg/dL Urine Blood (Negative) Urine Nitrite (Negative) Urine Bilirubin (Negative) Urine Urobilinogen (Up TO 0.2) EU/dL Ur Leukocyte Esterase (Negative) Urine Glucose (Negative) mg/dL COVID-19 Source SARS-CoV-2 (PCR) (Negative) Influenza Type A (PCR) (Negative) Influenza Type B (PCR) (Negative) RSV (PCR) (Negative) Range/Units 01/03/21 01/03/21 01/03/21 13:10 13:15 13:20 WBC (4.4-10.8) 10^3/uL RBC (4.36-5.78) 10^6/uL Hgb (13.5-17.5) g/dL Hct (40.0-50.0) % MCV (80-95) fL MCH (27.0-33.0) pg MCHC (32.0-36.0) % RDW (11.8-14.1) % Plt Count (130-400) 10^3/uL MPV (8.0-11.0) fL Immature Gran % Neutrophils % Lymphocytes % Monocytes % Eosinophils % Basophils % Nucleated RBC % % Absolute Neutrophils (1.2-6.7) 10^3/uL Absolute Lymphocytes (1.2-3.4) 10^3/uL Absolute Monocytes (0.1-0.8) 10^3/uL Absolute Eosinophils (0.0-0.7) 10^3/uL Absolute Basophils (0.0-0.2) 10^3/uL RBC Morphology Macrocytosis PT (9.3-11.0) sec Cancelled INR (0.9-1.1) Cancelled APTT (21.0-27.5) sec VBG Lactate (0.6-1.4) mmol/L Sodium (136-145) mmol/L Potassium (3.5-5.1) mmol/L Chloride (98-107) mmol/L Carbon Dioxide (21.0-32.0) mmol/L Anion Gap (3-11) mmol/L BUN (7-18) mg/dL Creatinine (0.70-1.30) mg/dL Estimated GFR/1.73 m2 (mL/min/1.73m2) Glucose (74-106) mg/dL Calcium (8.5-10.1) mg/dL Magnesium (1.8-2.4) mg/dL Total Bilirubin (0.2-1.0) mg/dL AST (15-37) U/L ALT (16-63) U/L Alkaline Phosphatase (46-116) U/L Troponin I (<0.06) ng/mL NT-Pro-B Natriuret Pep (<300) pg/mL Total Protein (6.4-8.2) g/dL Albumin (3.4-5.0) g/dL Urine Color (Yellow) Yellow Urine Clarity (Clear) Clear Urine pH (5-8) 5.5 Ur Specific [place] (1.005-1.025) 1.020 Urine Protein (Negative) mg/dL Negative Urine Ketones (Negative) mg/dL Negative Urine Blood (Negative) Negative Urine Nitrite (Negative) Negative Urine Bilirubin (Negative) Negative Urine Urobilinogen (Up TO 0.2) EU/dL 0.2 Ur Leukocyte Esterase (Negative) Negative Urine Glucose (Negative) mg/dL Negative COVID-19 Source Nasopharyx SARS-CoV-2 (PCR) (Negative) Negative Influenza Type A (PCR) (Negative) Negative Influenza Type B (PCR) (Negative) Negative RSV (PCR) (Negative) Negative Range/Units 01/03/21 01/03/21 13:40 14:00 WBC (4.4-10.8) 10^3/uL 4.92 RBC (4.36-5.78) 10^6/uL 2.62 L Hgb (13.5-17.5) g/dL 9.7 L Hct (40.0-50.0) % 29.7 L MCV (80-95) fL 113.4 H MCH (27.0-33.0) pg 37.0 H MCHC (32.0-36.0) % 32.7 RDW (11.8-14.1) % 15.2 H Plt Count (130-400) 10^3/uL 181 MPV (8.0-11.0) fL 9.4 Immature Gran % 0.2 Neutrophils % 89.8 Lymphocytes % 5.5 Monocytes % 3.7 Eosinophils % 0.6 Basophils % 0.2 Nucleated RBC % % 0 Absolute Neutrophils (1.2-6.7) 10^3/uL 4.42 Absolute Lymphocytes (1.2-3.4) 10^3/uL 0.27 L Absolute Monocytes (0.1-0.8) 10^3/uL 0.18 Absolute Eosinophils (0.0-0.7) 10^3/uL 0.03 Absolute Basophils (0.0-0.2) 10^3/uL 0.01 RBC Morphology See below Macrocytosis 3+ PT (9.3-11.0) sec INR (0.9-1.1) APTT (21.0-27.5) sec VBG Lactate (0.6-1.4) mmol/L 1.2 Sodium (136-145) mmol/L Potassium (3.5-5.1) mmol/L Chloride (98-107) mmol/L Carbon Dioxide (21.0-32.0) mmol/L Anion Gap (3-11) mmol/L BUN (7-18) mg/dL Creatinine (0.70-1.30) mg/dL Estimated GFR/1.73 m2 (mL/min/1.73m2) Glucose (74-106) mg/dL Calcium (8.5-10.1) mg/dL Magnesium (1.8-2.4) mg/dL Total Bilirubin (0.2-1.0) mg/dL AST (15-37) U/L ALT (16-63) U/L Alkaline Phosphatase (46-116) U/L Troponin I (<0.06) ng/mL NT-Pro-B Natriuret Pep (<300) pg/mL Total Protein (6.4-8.2) g/dL Albumin (3.4-5.0) g/dL Urine Color (Yellow) Urine Clarity (Clear) Urine pH (5-8) Ur Specific [place] (1.005-1.025) Urine Protein (Negative) mg/dL Urine Ketones (Negative) mg/dL Urine Blood (Negative) Urine Nitrite (Negative) Urine Bilirubin (Negative) Urine Urobilinogen (Up TO 0.2) EU/dL Ur Leukocyte Esterase (Negative) Urine Glucose (Negative) mg/dL COVID-19 Source SARS-CoV-2 (PCR) (Negative) Influenza Type A (PCR) (Negative) Influenza Type B (PCR) (Negative) RSV (PCR) (Negative) ECG Data Attestation: I personally reviewed and interpreted this ECG (s) as follows: Interpretation: Please see official report by Dr. Lee. Sinus rhythm, ventricular rate 72, no STEMI. HPI General Mode of arrival: EMS . Date/Time Provider Initiated Documentation: 01/03/21 13:02 . Limitations to Documentation: altered mental status . Information obtained by: EMS . HPI Narrative: This is a 80-year-old gentleman presenting to the ER via EMS for altered mental status. He has a past medical history that includes CHF, metastatic prostate cancer, hyperlipidemia, hypertension, peripheral neuropathy. He is awake to verbal stimuli but is not able to partake in HPI or physical examination. I was able to get collateral information from EMS and his . Apparently patient received his second Covid vaccine on Monday, subsequently felt ill for the next 24 hours. Woke up this morning feeling better but then sometime between 11 AM and noon, became tired, altered, and simply not feeling well. No focal deficits were noted by his . EMS states that he would open his eyes when calling his name. Fingerstick glucose 120. He does wear home O2 at baseline, 2 L nasal cannula. He was noted to be febrile via EMS and upon arrival temperature was 39.4 ?C. I was able to confirm with the patient's that the patient is in fact a DNR and DNI. Related Data Home Medications Medication Instructions Recorded Confirmed Lupron Depot (4 month) 30 mg IM .Q4 months 09/25/17 01/03/21 metoprolol succinate 100 mg PO DAILY tab-cap 09/25/17 01/03/21 denosumab 120 mg/1.7 mL (70 mg/mL) 120 mg SC Q6W 12/10/18 01/03/21 subcutaneous solution fluticasone propionate 50 1 spray BRIAN DAILY 12/10/18 01/03/21 mcg/actuation nasal spray,suspension gabapentin 300 mg capsule 800 mg PO BID tab-cap 12/10/18 01/03/21 lisinopril 5 mg tablet 10 mg PO DAILY #2 tab-cap 12/10/18 01/03/21 multivitamin 1 tab PO DAILY 12/10/18 01/03/21 clotrimazole 1 applic TOPICAL TID #30 gm 09/15/19 01/03/21 vits A and D-white pet-lanolin 1 applic TOPICAL TID #56 gm 09/15/19 01/03/21 zinc oxide 1 applic TOPICAL TID #30 gm 09/15/19 01/03/21 calcium carbonate-vitamin D3 1 tab PO DAILY 04/01/20 01/03/21 [Calcium 600 + D(3)] fentanyl 25 mcg TRANSDERMAL Q48H 05/21/20 01/03/21 furosemide 40 mg PO BID@0830,1600 #14 tab 05/21/20 01/03/21 fentanyl 1 patch TRANSDERMAL Q48H 01/03/21 01/03/21 Previous Rx's Medication Instructions Recorded clotrimazole 1 applic TOPICAL TID #30 gm 09/15/19 vits A and D-white pet-lanolin 1 applic TOPICAL TID #56 gm 09/15/19 zinc oxide 1 applic TOPICAL TID #30 gm 09/15/19 furosemide 40 mg PO BID@0830,1600 #14 tab 05/21/20 Allergies Allergy/AdvReac Type Severity Reaction Status Date / Time No Known Drug Allergies Allergy Unverified 05/12/20 00:04 General Stated Complaint: AMS/LOC BENNY: 2 Review of Systems Unobtainable due to mental status [facility] Medical History AWILDA (acute kidney injury) Bone metastases Chronic kidney disease, stage 3 Decubital ulcer Edema Hx of acute renal failure Hyperlipidemia Hypertension Hypoventilation associated with obesity Left foot pain Left rotator cuff tear Lichen sclerosus Memory loss Metastatic malignant neoplasm to prostate Mononeuropathy of left lower extremity Peripheral edema Peripheral neuropathy due to chemotherapy Physeal fracture of phalanx of toe of left foot Pressure ulcer Buttocks TBI (traumatic brain injury) Family History Mother Lung cancer Social History Smoking/Tobacco Use Status: Never Smoking risk assessment performed?: Yes Alcohol Intake: current Alcohol Intake frequency: a few times a month Alcohol type: hard liquor Drug use: Never Substance use type: does not use Household members: spouse Number of Children: 2 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; [employer]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 Do you feel safe at home: Yes (unable to answer) Do you feel safe in your relationship?: Yes Additional Social history: Moved from [place] to [place] in 2017 to be cared for by ( x10 years previously) Exam Const General: ill appearing and lethargic Nutritional Appearance: obese Orientation: alert and awake (To verbal stimuli) Limitations: altered mental status HENMT Head: normal to inspection, normocephalic and atraumatic Ears: external ears normal, TM's normal bilaterally and EAC's normal Face and sinus: normal facial exam Mouth: moist mucous membranes abnormal (Slightly dry) Throat: posterior oropharynx normal Eyes General: appearance normal, both eyes and all related structures Alignment and Position: alignment normal Periorbital: periorbital findings normal Eyelids: eyelids normal Conjunctivae: conjunctivae normal Sclera: sclerae normal Cornea: corneas normal Pupils: PERRL EOM: EOM intact bilaterally Direct ophthalmoscopy: normal light reflex Neck Neck: normal visual inspection, full ROM, no lymphadenopathy, no meningeal signs, trachea midline, supple and nontender Chest Chest: normal inspection of the chest Resp Effort & Inspection: normal respiratory effort and able to speak in complete sentences Auscultation: diminished lung sounds bilaterally (Bases, left worse than right) Cardio Rate: regular rate Rhythm: regular rhythm GI Inspection: obesity Palpation: soft, not firm, no guarding, no pulsatile masses and nontender Auscultation: normal bowel sounds Back/Spine/Pelvis Back: No back tenderness Skin General skin exam: no rashes or lesions noted Other: Abrasion right fourth toe. No evidence of infection Neuro General: patient alert, patient awake, moves all extremities and no focal motor deficits Motor: muscle tone normal throughout Sensory Exam: no sensory deficits noted Extrem General: capillary refill normal Other: Left second toe amputation. Right fourth toe abrasion, no signs of infection. No significant pedal edema, warmth, erythema. Patient moves all extremities but does not follow commands. Normal capillary refill. Chronic venous stasis bilateral lower extremities. Psych Appearance: grossly normal Mental Status: mental status grossly normal Course Vital Signs Vital signs: Vital Signs Temperature 39.4 C H 01/03/21 13:08 Pulse 73 01/03/21 13:08 Respiratory Rate 14 01/03/21 13:08 Blood Pressure 124/46 L 01/03/21 13:08 Pulse Oximetry 96 01/03/21 13:08 Temperature 39.4 C H 01/03/21 13:08 Temperature Source Oral 01/03/21 13:08 Pulse 76 01/03/21 13:47 Respiratory Rate 12 01/03/21 13:47 Respiratory Effort 01/03/21 13:50 Respiratory Depth Normal 01/03/21 13:50 Respiratory Pattern Normal 01/03/21 13:50 Blood Pressure 135/72 01/03/21 13:47 Pulse Oximetry 96 01/03/21 13:47 Oxygen Delivery Method Nasal Cannula 01/03/21 13:47 Oxygen Flow Rate 2 01/03/21 13:47 Lab/Test Results Lab/Test Results: 01/03/21 13:20 Blood Blood Culture - Pending 01/03/21 13:10 Blood Blood Culture - Pending Laboratory Tests Range/Units 01/03/21 01/03/21 01/03/21 13:10 13:15 13:20 PT Cancelled INR Cancelled Urine Color (Yellow) Yellow Urine Clarity (Clear) Clear Urine pH (5-8) 5.5 Ur Specific [place] (1.005-1.025) 1.020 Urine Protein (Negative) mg/dL Negative Urine Ketones (Negative) mg/dL Negative Urine Blood (Negative) Negative Urine Nitrite (Negative) Negative Urine Bilirubin (Negative) Negative Urine Urobilinogen (Up TO 0.2) EU/dL 0.2 Ur Leukocyte Esterase (Negative) Negative Urine Glucose (Negative) mg/dL Negative COVID-19 Source Nasopharyx Critical Care Time Critical Care Time Critical Care Time: Yes Total Critical Care Time: 35 Attestation: Upon my evaluation, this patient had a high probability of clinically significant, life-threatening deterioration due to their current medical conditions, which required my direct attention, intervention, and personal management. I have personally provided greater than 30 minutes of critical care time exclusive of the time spend on separately billable procedures. Time includes obtaining a history, examining the patient, pulse oximetry, review of laboratory data, radiology results, discussion with consultants, arranging urgent treatment with development of a management plan, evaluation of patient's response to treatment, and monitoring for potential decompensation. Interventions were performed as documented above.
[2021-01-03 13:58] LABS: Troponin I < 0.05 ng/mL (<0.06)
[2021-01-03 13:58] LABS: Diff Comment RBC Morph Reviewed; Macrocytosis 3+
[2021-01-03 14:01] LABS: NT-proBNP 1176 pg/mL (<300)
[2021-01-03 14:05] LABS: Lactate 1.2 mmol/L (0.6-1.4)
[2021-01-03] MEDS: cefTRIAXone 2 GM/50 ML BAG IVPB (14:24)
[2021-01-03 14:26] LABS: COVID-19 PCR Negative (Negative); Influenza A PCR Negative (Negative); Influenza B PCR Negative (Negative); RSV PCR Negative (Negative)
--- NOTE | 2021-01-03 14:26 | NUR.NOTE ---
fentanyl patch removed from R arm
[2021-01-03] MEDS: AZITHROMYCIN 500 MG in Normal Saline 250 ML 250 MG IVPB (14:48)
--- NOTE | 2021-01-03 16:25 | NUR.NOTE ---
Dr. Walls notified of BP, while Dr. Walls at bedside, BP 86/46. orders for NS 100ml/hr given, started in Nathaly Cruz AC
[2021-01-03 16:42] LABS: Troponin I < 0.05 ng/mL (<0.06)
--- NOTE | 2021-01-03 16:45 | HPE_ITS ---
Date of service: 01/03/21 Time of Service: 16:46 Assessment and Plan Assessment and plan (1) Left lower lobe pneumonia: Status: Acute Assessment and plan: Chest x-ray reveals atelectasis or infiltrate of the left lower lobe. Given he presents with fever, diminished white count, sudden deterioration in status will treat as sepsis. He is getting some IV fluids, ceftriaxone, azithromycin. Will monitor in the ICU closely. (2) Altered mental status: Status: Acute Assessment and plan: He has had toxic encephalopathy in the past when he gets sick. He has altered mental status with somewhat slow response to stimuli. He does not appear to be delirious. In the past he is turned around with hydration and antibiotics. (3) Acute on chronic diastolic CHF (congestive heart failure), NYHA class 1: Status: Acute Assessment and plan: He carries a diagnosis of diastolic congestive heart failure. He does not appear to be in acute congestive heart failure at this time. He is on chronic furosemide therapy and we will continue that. (4) Sepsis: Status: Acute Assessment and plan: He presents with fever, low blood pressures, pneumonia. He would qualify as moderate sepsis. Will monitor in the ICU. (5) COVID-19 ruled out by laboratory testing: Status: Ruled-out Assessment and plan: The staff he had Covid test negative also flu negative, RSV negative. (6) Hypoventilation associated with obesity: Status: Chronic Assessment and plan: History of JOSE we will continue on CPAP therapy as an inpatient. (7) DVT prophylaxis: Status: Acute Assessment and plan: Enoxaparin. (8) Bone metastases: Status: Chronic Assessment and plan: History of bone mets to the right hip. He is on a fentanyl patch. (9) Metastatic malignant neoplasm to prostate: Status: Chronic Assessment and plan: He is on Lupron therapy. (10) Discharge planning issues: Status: Acute Assessment and plan: DNR/DNI. Admit to acute care status. History of Present Illness History of Present Illness Chief Complaint: Left lower lobe pneumonia/sepsis/altered mental status Narrative: This is a 80-year-old man with a history of metastatic prostate cancer, he received his second Covid vaccine on 01/01/2021, he was in his usual state of health this morning saying he felt great. He ate his breakfast. At around 10:30 AM his noticed decreased responsiveness and profound weakness. EMS was summoned and he was brought to the emergency room. In the emergency room he had a temp of 39.4, he was unable to answer questions. His chest x-ray showed a left lower lobe infiltrate. He received some IV fluids IV ceftriaxone and IV azithromycin. His screening for Covid, flu, RSV were negative. He was about to be admitted to the [facility] floor but his blood pressures appeared somewhat soft so he is going to the ICU for close monitoring. He is DNR/DNI. Review of Systems Narrative: He was reportedly well up until about 11 this morning. He had recei alejandra a Covid vaccine on 01/01/2021. He felt achy, he had a sore arm and fatigue yesterday. He stated he felt well this morning. Then he had sudden onset of altered mental status and weakness. No chest pain no shortness of breath. There was no prodrome of cough or respiratory symptoms. His appetite was good this morning. [facility] Medical History (Updated 01/03/21 @ 17:06 by Rian Olvera MD) Acute alteration in mental status Acute congestive heart failure Acute on chronic diastolic CHF (congestive heart failure) Acute on chronic right-sided congestive heart failure AWILDA (acute kidney injury) Anemia Atelectasis Bacteremia due to Streptococcus Bone metastases Prostate ca Chronic kidney disease, stage 3 Chronic wound of extremity Decubital ulcer Edema Group G streptococcal infection Hx of acute renal failure Hypercapnic respiratory failure Hyperlipidemia Hypertension Hypoventilation associated with obesity Left foot infection Left foot pain Left rotator cuff tear Lichen sclerosus Memory loss Metastatic malignant neoplasm to prostate Mononeuropathy of left lower extremity Nocturnal hypoxia Nonsustained paroxysmal supraventricular tachycardia Obesity (BMI 30-39.9) Obstructive sleep apnea PAD (peripheral artery disease) Peripheral edema Peripheral neuropathy due to chemotherapy Physeal fracture of phalanx of toe of left foot Pneumonia Pneumonia Pressure ulcer Buttocks Pulmonary hypertension Respiratory failure with hypoxia and hypercapnia Sleep apnea TBI (traumatic brain injury) Toxic metabolic encephalopathy Family History Mother Lung cancer Social History Smoking/Tobacco Use Status: Never Smoking risk assessment performed?: Yes Alcohol Intake: current Alcohol Intake frequency: a few times a month Alcohol type: hard liquor Drug use: Never Substance use type: does not use Household members: spouse Number of Children: 2 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; [employer]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 Do you feel safe at home: Yes (unable to answer) Do you feel safe in your relationship?: Yes Additional Social history: [place] to be cared for by ( x10 years previously) Meds Home Medications and Allergies Allergies Allergy/AdvReac Type Severity Reaction Status Date / Time No Known Drug Allergies Allergy Unverified 05/12/20 00:04 Home Medications Medication Instructions Recorded Confirmed Type Lupron Depot (4 month) 30 mg IM .Q4 months 09/25/17 01/03/21 History metoprolol succinate 100 mg PO DAILY tab-cap 09/25/17 01/03/21 History denosumab 120 mg/1.7 mL (70 mg/mL) 120 mg SC Q6W 12/10/18 01/03/21 History subcutaneous solution fluticasone propionate 50 1 spray BRIAN DAILY 12/10/18 01/03/21 History mcg/actuation nasal spray,suspension gabapentin 300 mg capsule 800 mg PO BID tab-cap 12/10/18 01/03/21 History lisinopril 5 mg tablet 10 mg PO DAILY #2 tab-cap 12/10/18 01/03/21 History multivitamin 1 tab PO DAILY 12/10/18 01/03/21 History clotrimazole 1 applic TOPICAL TID #30 gm 09/15/19 01/03/21 Rx vits A and D-white pet-lanolin 1 applic TOPICAL TID #56 gm 09/15/19 01/03/21 Rx zinc oxide 1 applic TOPICAL TID #30 gm 09/15/19 01/03/21 Rx calcium carbonate-vitamin D3 1 tab PO DAILY 04/01/20 01/03/21 History [Calcium 600 + D(3)] fentanyl 25 mcg TRANSDERMAL Q48H 05/21/20 01/03/21 History furosemide 40 mg PO BID@0830,1600 #14 tab 05/21/20 01/03/21 Rx fentanyl 1 patch TRANSDERMAL Q48H 01/03/21 01/03/21 History Exam Narrative Exam Narrative: On exam he is very somnolent though arousable. His can arouse him with fairly vigorous stimulation and he will make eye contact. He seems to recognize her. With prompting he could then switch his attention to the right side and made eye contact with me but could not converse. He appeared to be overall moderately encephalopathic. What speech he did make was clear. He did not have any significant respiratory distress or cough. His lung sounds were diminished bilaterally. Heart sounds were muffled. I could not appreciate a significant murmur. His abdomen is quite rounded/distended but overall soft and nontender to palpation. The lower extremities notable for amputation of the left second toe. There is no surrounding erythema to suggest infection. The right foot is cool. The skin over the john on the right and left is shiny and somewhat taut though there is no significant edema. Overall perfusion appeared mildly diminished. Neurologically he had sluggish responses to commands but was able to squeeze with his right and left hand and could attempt some movement of his right and left lower extremities. Results Labs Result diagrams: 01/03/21 13:40 01/03/21 13:10 Labs: Laboratory Results - last 24 hr 01/03/21 01/03/21 01/03/21 13:10 13:10 13:10 WBC RBC Hgb Hct MCV MCH MCHC RDW Plt Count MPV Immature Gran % Neutrophils % Lymphocytes % Monocytes % Eosinophils % Basophils % Nucleated RBC % Absolute Neutrophils Absolute Lymphocytes Absolute Monocytes Absolute Eosinophils Absolute Basophils RBC Morphology Macrocytosis PT 10.2 INR 1.0 APTT 21.9 VBG Lactate Sodium 142 Potassium 4.4 Chloride 104 Carbon Dioxide 34.5 H Anion Gap 3.5 BUN 33 H Creatinine 1.8 H Estimated GFR/1.73 m2 36.58 Glucose 137 H Calcium 9.0 Magnesium 2.1 Total Bilirubin 0.4 AST 27 ALT 21 Alkaline Phosphatase 86 Troponin I < 0.05 NT-Pro-B Natriuret Pep 1176 H Total Protein 6.6 Albumin 3.2 L Urine Color Urine Clarity Urine pH Ur Specific Dagmar Urine Protein Urine Ketones Urine Blood Urine Nitrite Urine Bilirubin Urine Urobilinogen Ur Leukocyte Esterase Urine Glucose COVID-19 Source SARS-CoV-2 (PCR) Influenza Type A (PCR) Influenza Type B (PCR) RSV (PCR) 01/03/21 01/03/21 01/03/21 13:10 13:15 13:20 WBC RBC Hgb Hct MCV MCH MCHC RDW Plt Count MPV Immature Gran % Neutrophils % Lymphocytes % Monocytes % Eosinophils % Basophils % Nucleated RBC % Absolute Neutrophils Absolute Lymphocytes Absolute Monocytes Absolute Eosinophils Absolute Basophils RBC Morphology Macrocytosis PT Cancelled INR Cancelled APTT VBG Lactate Sodium Potassium Chloride Carbon Dioxide Anion Gap BUN Creatinine Estimated GFR/1.73 m2 Glucose Calcium Magnesium Total Bilirubin AST ALT Alkaline Phosphatase Troponin I NT-Pro-B Natriuret Pep Total Protein Albumin Urine Color Yellow Urine Clarity Clear Urine pH 5.5 Ur Specific Dagmar 1.020 Urine Protein Negative Urine Ketones Negative Urine Blood Negative Urine Nitrite Negative Urine Bilirubin Negative Urine Urobilinogen 0.2 Ur Leukocyte Esterase Negative Urine Glucose Negative COVID-19 Source Nasopharyx SARS-CoV-2 (PCR) Negative Influenza Type A (PCR) Negative Influenza Type B (PCR) Negative RSV (PCR) Negative 01/03/21 01/03/21 01/03/21 13:40 14:00 16:20 WBC 4.92 RBC 2.62 L Hgb 9.7 L Hct 29.7 L MCV 113.4 H MCH 37.0 H MCHC 32.7 RDW 15.2 H Plt Count 181 MPV 9.4 Immature Gran % 0.2 Neutrophils % 89.8 Lymphocytes % 5.5 Monocytes % 3.7 Eosinophils % 0.6 Basophils % 0.2 Nucleated RBC % 0 Absolute Neutrophils 4.42 Absolute Lymphocytes 0.27 L Absolute Monocytes 0.18 Absolute Eosinophils 0.03 Absolute Basophils 0.01 RBC Morphology See below Macrocytosis 3+ PT INR APTT VBG Lactate 1.2 Sodium Potassium Chloride Carbon Dioxide Anion Gap BUN Creatinine Estimated GFR/1.73 m2 Glucose Calcium Magnesium Total Bilirubin AST ALT Alkaline Phosphatase Troponin I < 0.05 NT-Pro-B Natriuret Pep Total Protein Albumin Urine Color Urine Clarity Urine pH Ur Specific Dagmar Urine Protein Urine Ketones Urine Blood Urine Nitrite Urine Bilirubin Urine Urobilinogen Ur Leukocyte Esterase Urine Glucose COVID-19 Source SARS-CoV-2 (PCR) Influenza Type A (PCR) Influenza Type B (PCR) RSV (PCR) Last Vital Signs Temp 37.8 C H 01/03/21 14:49 Pulse 66 01/03/21 16:07 Resp 10 L 01/03/21 16:07 BP 100/46 L 01/03/21 16:10 Pulse Ox 97 01/03/21 16:07 COVID-19 Screening Have you, or household traveled for leisure in last 14 days?: No
[2021-01-03] MEDS: Normal Saline 1,000 ML 100 ML IV (16:51)
--- OUTSIDE RECORDS SUMMARY | 2021-01-03 17:17 | XMS_ITS ---
:1940 Author Care Team Providers Name Role Phone [facility] Primary Care Provider [phone] CARLA HERRERA Primary Care Provider [phone] Allergies Code Code System Name Reaction Severity Status Onset NKDA ? Medications Name Status Start Date Stop Date ? ? ascorbic acid (vitamin C) 1,000 mg tablet Active ? Not available Take 1 tablet every day by oral route. calcium carbonate 500 mg(1,250 mg)-vitamin D3 400 unit chewable tablet Active ? Not available Take by oral route. clotrimazole 1 % topical cream Active ? N ot available APPLY TO THE AFFECTED AND SURROUNDING A REAS OF SKIN BY TOPICAL ROUTE 2 TIMES PER DAY IN THE MORNING AND EVENING Fluticasone Propionate (Nasal) 50 mcg/DOSE inhaler Active ? Not available [place] 1 spray every day by intranasal route. furosemide Active ? Not available 20 mg 1 tablet daily furosemide 40 mg tablet Completed ? 05/05/20 20 Take 1 tablet every day by oral route. gabapentin 300 mg capsule Active ? Not av ailable Take 2 capsules every day by oral route. lisinopril 5 mg tablet Active ? Not avail able Take 10 mg every day by oral route. Lupron Depot (4 month) Active ? Not avail able 30 mg syringe kit, Q4 months Lynparza Active ? Not available 2 am and 2 pm metoprolol succinate ER 100 mg capsule sprinkle, ext. release 24 hr Active ? Not available Take 1 capsule every day by oral route. Multi Vitamin Active ? Not available 1 daily oxygen gas for inhalation Active ? Not av ailable Inhale 0.5 gas by inhalation route. Vitamin D3 (with calcium carb) Active ? N ot available 1 daily Xgeva 120 mg/1.7 mL (70 mg/mL) subcutaneous solution Active ? Not available Inject 1.7 mL by subcutaneous route. zinc oxide 20 % topical ointment Active ? Not available TID Problems Name Status Onset Date Source ? Acute Respiratory Failure Active 01/08/2020 ? Secondary Malignant Neoplastic Disease Active 0 ? Hyperlipidemia Active 04/29/2020 ? Pain from Metastases Active 04/29/2020 ? Mononeuropathy of Lower Limb Active 04/29/2020 ? Hypertensive Disorder Active 04/29/2020 ? Acute Renal Failure Syndrome Active 04/29/2020 ? Chronic Kidney Disease Stage 3 Active 04/29/2020 ? Pressure Ulcer Active 04/29/2020 ? Peripheral Edema Active 04/29/2020 ? Tear of Left Rotator Cuff Active 04/29/2020 ? Memory Loss Care Active 04/29/2020 ? Peripheral Neuropathy Due to and Following Active 04/29 ? Antineoplastic Therapy Stress Fracture of Phalanx of Left Foot Active 04/29/20 20 ? Procedures Date Name Performed by ? 05/20/2020 Polysomnogram Information not avai lable Results Lab Results None recorded. Past Encounters 05/05/2020 Acute Respiratory Failure Soledad Ross COMMUNITY DEVELOPMENT DIRECTOR: [address] [place] [phone], Ph. Social History Tobacco Smoking Status Never Smoker Vaccine List None recorded. Plan of Care Reminders Provider Appointments None ? ? recorded. Lab None ? ? recorded. Referral None ? ? recorded. Procedures None ? ? recorded. Surgeries None ? ? recorded. Imaging None ? ? recorded. Vitals Height Weight BMI Blood Pressure 152.4 cm 90.72 kg 39.1 kg/m2 130/82 mm[Hg]
--- NOTE | 2021-01-03 17:31 | NUR.NOTE ---
1720 pt transferred to ICU with RN and monitor. accompanied pt which was cleared with Dr. Walls. report given to JD Slaughter:
[2021-01-03 18:24] LABS: BE 8 mmol/L (-2-3); HCO3 34 mmol/L (22-26); pH 7.35 (7.35-7.45); pO2 75 mmHg (80-105); sO2 95 % (95-98); tCO2 32 mmol/L (23-27)
[2021-01-03 18:27] LABS: FIO2 30 %; Site Left Radial; pCO2 61 mmHg (35-45)
[2021-01-03] MEDS: Enoxaparin 40 MG/0.4 ML SYR SC (18:34)
[2021-01-03] MEDS: fentaNYL 12 MCG PATCH TD (18:35)
[2021-01-03] MEDS: fentaNYL 25 MCG PATCH (18:36)
[2021-01-03 19:04] LABS: Procalcitonin 6.6 ng/mL
[2021-01-03 20:48] LABS: Lactate 1.4 mmol/L (0.6-1.4)
[2021-01-03 21:06] LABS: Troponin I < 0.05 ng/mL (<0.06)
[2021-01-03] MEDS: Acetaminophen 325 MG TAB PO (21:24)
[2021-01-03] MEDS: Gabapentin 400 MG CAP 800 MG PO (21:25)
[2021-01-03] MEDS: Clotrimazole 1% 15 GM TUBE TP (21:33)
[2021-01-04] VITALS (39 sets, daily range): BP systolic 114–147; BP diastolic 34–76; PULSE 66–110; RESP 12–25; TEMP 36.5–38.3; O2SAT 93–100
--- NOTE | 2021-01-04 01:43 | NUR.NOTE ---
Nursing Note: Patient wanted to remove his watch, one metal wrist watch removed and kept in a labelled plastic bag in patient's room.
[2021-01-04] MEDS: Normal Saline 1,000 ML 100 ML IV (02:54)
[2021-01-04 07:26] LABS: Anion Gap 5.9 mmol/L (3-11); BUN 31 mg/dL (7-18); CO2 33.1 mmol/L (21.0-32.0); CREATININE 1.8 mg/dL (0.70-1.30); Calcium 8.4 mg/dL (8.5-10.1); Chloride 110 mmol/L (98-107); Estimated GFR 36.58 (mL/min/1.73m2); Glucose 118 mg/dL (74-106); Potassium 4.4 mmol/L (3.5-5.1); Sodium 149 mmol/L (136-145)
--- NOTE | 2021-01-04 08:35 | INITIAL_ITS ---
- If Service Date Differs Date of service: 01/04/21 Time of Service: 08:36 Care Management Initial Assess REASON FOR HOSPITALIZATION:: LLL Pneumonia PAST MEDICAL HISTORY/PAST SURGICAL HISTORY:: Medical History (Updated 01/03/21 @ 17:06 by Rian Olvera MD). Acute alteration in mental status. Acute congestive heart failure. Acute on chronic diastolic CHF (congestive heart failure). Acute on chronic right-sided congestive heart failure. AWILDA (acute kidney injury). Anemia. Atelectasis. Bacteremia due to Streptococcus. Bone metastases. Prostate ca. Chronic kidney disease, stage 3. Chronic wound of extremity. Decubital ulcer. Edema. Group G streptococcal infection. Hx of acute renal failure. Hypercapnic respiratory failure. Hyperlipidemia. Hypertension. Hypoventilation associated with obesity. Left foot infection. Left foot pain. Left rotator cuff tear. Lichen sclerosus. Memory loss. Metastatic malignant neoplasm to prostate. Mononeuropathy of left lower extremity. Nocturnal hypoxia. Nonsustained paroxysmal supraventricular tachycardia. Obesity (BMI 30-39.9). Obstructive sleep apnea. PAD (peripheral artery disease). Peripheral edema. Peripheral neuropathy due to chemotherapy. Physeal fracture of phalanx of toe of left foot. Pneumonia. Pneumonia. Pressure ulcer. Buttocks. Pulmonary hypertension. Respiratory failure with hypoxia and hypercapnia. Sleep apnea. TBI (traumatic brain injury). Toxic m etabolic encephalopathy. Family History . Mother. Lung cancer PREVIOUS FUNCTIONAL STATUS/SOCIAL/FAMILY SUPPORTS:: Lester lives with his Lotus in [place], [place] in a single family home. They do have a boarder who helps with meals and other tasks around the home. 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 He uses a walker to ambulate. His mobility is very limited due to his neuropathy. He needs assistance with care which his spouse provides. CURRENT FUNCTIONAL STATUS:: Lester was sitting up in bed when CM met with him. He had been dozing but was easily awakened. Lester stated that things have been going well since his last admission. He informed CM that he had received his first Covid vaccine and is due for his second one Monday. If he is unable to be discharged before then, CALEB will follow up to see if it is possible to accomodate his vaccination at [facility]. Lester also talked about the boarder that lives with them. He described her as a member of the family stating that she helps out at home a lot. ADVANCE DIRECTIVES:: None on file Has patient been provided with info about the portal/API?: Yes Did the patient sign up for the portal?: No CODE STATUS:: DNR/DNI INSURANCE COVERAGE / FINANCIAL ISSUES:: Medicare. [employer] CURRENT HOME/COMMUNITY SERVICES/EQUIPMENT:: Outpatient PT 2 days a week. Lester states he receives home health services for 4 hours per day to help with ex assistant/program director etc. His Lotus confirmed the services and explained that they have [employer] insurance that covers the services but that it is through a private agency, not [facility]. PRIMARY CARE PHYSICIAN:: Tonny Leslie POTENTIAL DISCHARGE NEEDS:: Follow up with PCP and discharge plan of care PATIENT/FAMILY EDUCATION NEEDS:: Discharge plan, limitations, follow up plan, Ask Me Three TRANSPORTATION:: via private vehicle with PLAN:: Lester will discharge home with no new services but will have a resumption of the caregivers that are hired privately for him. He will follow up with his PCP and discharge plan of care and transport with his . CM will continue to support Lester and his family and assess for discharge planning needs.
--- NOTE | 2021-01-04 09:13 | PT.INIE ---
Date of service: 01/04/21 Time of Service: 09:38 PT Notes Visit Reasons: PNEUMONIA/ SEPSIS/ AMS Physical Therapy Inpatient Initial Evaluation Date: 01/04/2021 Referring Doctor: Rian Olvera MD PT Orders: PT CONSULT: Exacerbation of Chronic Cond. Metastatic prostate ca w/right hip pain Precautions: Fall. Standard. Activity as tolerated. COVID-19 negative. Patient Profile/Admitting Diagnosis: Manjit is a 80-year-old male patient with past medical history significant for hypoventilation syndrome associated with obesity, bone metastasis and malignant neoplasm of prostate with bone metastases who presented to the ED on 01/03/2021 via EMS with altered mental status and fever. He is diagnosed with lower lobe pneumonia, altered mental status, acute on chronic diastolic congestive heart failure, and sepsis. PMHX: Medical History (Updated 01/03/21 @ 17:06 by Rian Olvera MD) Acute alteration in mental status Acute congestive heart failure Acute on chronic diastolic CHF (congestive heart failure) Acute on chronic right-sided congestive heart failure AWILDA (acute kidney injury) Anemia Atelectasis Bacteremia due to Streptococcus Bone metastases Prostate ca Chronic kidney disease, stage 3 Chronic wound of extremity Decubital ulcer Edema Group G streptococcal infection Hx of acute renal failure Hypercapnic respiratory failure Hyperlipidemia Hypertension Hypoventilation associated with obesity Left foot infection Left foot pain Left rotator cuff tear Lichen sclerosus Memory loss Metastatic malignant neoplasm to prostate Mononeuropathy of left lower extremity Nocturnal hypoxia Nonsustained paroxysmal supraventricular tachycardia Obesity (BMI 30-39.9) Obstructive sleep apnea PAD (peripheral artery disease) Peripheral edema Peripheral neuropathy due to chemotherapy Physeal fracture of phalanx of toe of left foot Pneumonia Pneumonia Pressure ulcer Buttocks Pulmonary hypertension Respiratory failure with hypoxia and hypercapnia Sleep apnea TBI (traumatic brain injury) Toxic metabolic encephalopathy Social History/Home Situation: Lester lives with in a private home in [place] with his Alva. They also have another person who boards at their house and is able to help with provision of care for patient for meals and police specialist. provides assistance with morning care. Prior level of function is independent indoor and outdoor ambulation of about 50 feet using the front-wheeled walker. His peripheral neuropathy has placed limitations on all his mobility ADL performance. Equipment Owned/DME: Front-wheeled walker, transport wheelchair Subjective: Unable to answer simple questions. Unable to follow single-step commands. Required maximal verbal, visual, and tactile cueing to move in bed. Drowsy. Objective: General Observation: Patient supine in bed. Lethargic. Telemetry monitoring in place. Bansal catheter in place. Bilateral TEDS on legs. On 2.5 L of oxygen per minute via NC. DANDRE Louis assisting with mobility assessment for safety. UE/LE tremors increase with effort. Mental Status: Oriented only to self. Required maximal verbal cueing to maintain level of alertness during consult. Pain: Unquantified pain in R hip Vital Signs: WNL ROM: Right Upper Extremity: Shoulder Flexion allows only up to 110 degrees. Shoulder abduction allows only up to 110 degrees. Elbow flexion WFL. Wrist flexion WFL. Opening and closing of hand WFL. Left Upper Extremity: Shoulder Flexion allows only up to 75 degrees. Shoulder abduction allows only up to 75 degrees. Elbow flexion WFL. Wrist flexion WFL. Opening and closing of hand WFL. Right Lower Extremity: Hip flexion WFL. Hip abduction WFL. Knee flexion WFL. Ankle dorsiflexion 5 to 10 degrees. Ankle plantarflexion WFL. Left Lower Extremity: Hip flexion WFL. Hip abduction WFL. Knee flexion WFL. Ankle dorsiflexion 5 to 10 degrees. Ankle plantarflexion WFL. Strength: Right Upper Extremity: Shoulder flexors 3-/5. Shoulder abductors 3-/5. Elbow flexors 5/5. Elbow extensors 5/5. Professor Of Mathematics strong. Left Upper Extremity: Shoulder flexors 3-/5. Shoulder abductors 3-/5. Elbow flexors 5/5. Elbow extensors 5/5. Professor Of Mathematics strong. Right Lower Extremity: Hip flexors 4/5. Hip abductors 4-/5. Knee flexors 5/5. Knee extensors 4-/5. Ankle dorsiflexors 2-/5. Ankle plantarflexors 3-/5. Left Lower Extremity:Hip flexors 4/5. Hip abductors 4-/5. Knee flexors 455. Knee extensors 4-/5. Ankle dorsiflexors 2-/5. Ankle plantarflexors 3-/5. Sensation: Intact as to pain and pressure on bilateral lower extremities. Bed Mobility/Transfers: Supine-sit: moderate assist of 2 Sit-supine: maximal assist of 2 Gait: Unable to test due to safety concerns and decreased level of alertness/decreased ability to follow instructions. Balance: Static Sitting: Normal Dynamic Sitting: Normal Static Standing: Fair Dynamic Standing: Fair Special Tests: Mobility Limitations Standardized Measure [facility] 6 clicks Basic Mobility Inpatient Short Form: Raw Score: 6 CMS Score: 100% deficit Informed Consent/Education: Patient instructed in purpose of PT consult and plan of care. Assessment: Manjit presents with signifincant functional mobility decline complicated by decreased level of lertness and confusion which limited today's mobility assessment. Will continue to assess transfer and ambulation task skills once safety level and cognition is improved. Patient presents with clinical signs and symptoms consistent with current/admitting diagnoses that have resulted to mobility limitations, gait instability, generalized weakness, and impairment of motor control as demonstrated by the following impairment level findings: 1. Decreased awareness due to lethargy 2. Disoriented as to date, place, and purpose 3. Chronic ROM limitations on B shoulders 4. Pain in L hip 5. Intentional tremors 6. Decreased static/dynamic standing/sitting balance/tolerance Impairments are contributing to the following functional limitations: 1. Inability to ambulate 2. Increase completion time for mobility ADL performance 3. Increased fall risk 4. Increased dependence with bed mobility 5. Inability to transfer Patient is assessed as a [id number] high complexity based on the following: History: 79-year-old male with impairment level findings, functional limitations, and past medical history as listed above Examination: Demonstrable impairment in strength, balance, and range of motion with underlying impairments and functional limitations as documented above Presentation: Evolving Decision Makin high complexity Goals: Goals X1 week 1. Supine-Sit stand by guard assist 2. Sit-Supine stand by guard assist 3. Sit-Stand contact guard assist 4. Stand-Sit contact guard assist 5. Bed-Chair contact guard assist 6. Chair-Bed contact guard assist 7. Minimal assist with gait on level surface with use of least restrictive device for at least 300 feet without report of pain nor dyspnea 9. MInimal assist with home exercise program 10. Fair static and dynamic standing balance/tolerance Plan of Care/Treatment Plan: 1x/day, 7 days/week x 1 week Patient will highly benefit from skilled physical therapy services including functional mobility training, bed mobility/transfer training, gait and balance training, therapeutic exercises, therapeutic activity, caregiver/staff/family education and training. Plan of care has been reviewed with the HIGH DENSITY [employer] OPERATOR providing the service under Physical Therapy direction. Initiate Physical Therapy intervention for strengthening, bed mobility, transfers, gait, stairs, balance training, use of assistive device. DISCHARGE RECOMMENDATIONS: SNF vs. PT. TREATMENT CODE/TIME: 69119 x 30 minutes, 32462 x 8 minutes beginning at 9:13 AM. Thank you very much for this referral. Liliane Morales PT, DPT, CLT [facility] [place], [place]
[2021-01-04] MEDS: Acetaminophen 325 MG TAB PO ×2 (09:16→21:21)
[2021-01-04] MEDS: Calcium 600mg/Vit D 200U TAB 1 TAB PO (09:17)
[2021-01-04] MEDS: Gabapentin 400 MG CAP 800 MG PO ×2 (09:17→19:52)
[2021-01-04] MEDS: Fluticasone NASAL SPRAY 16 GM BTL NS (10:33)
[2021-01-04] MEDS: SODIUM CHLORIDE 0.45% 1,000 ML 85 ML IV ×2 (10:59→23:08)
--- NOTE | 2021-01-04 12:45 | PGE_ITS ---
Date of Service Date of service: 01/04/21 Time of Service: 12:45 Assessment and Plan Assessment and plan (1) Sepsis: Status: Acute Assessment and plan: With acute mental statusPatient certainly met criteria for sepsis including hypotension change and elevated CRP and elevated blood lactate. He seems to be responding to the IV fluids and antibiotics and at this point no longer meets ICU criteria. We will continue with Rocephin and discontinue the vancomycin as noted below. Continue with aerosolized bronchodilators as needed for wheezing. Add Acapella to help mobilize sputum. Qualifiers: Sepsis type: Streptococcus, unspecified Acute respiratory failure type: with hypoxia Severe sepsis shock status: without septic shock Sepsis acute organ dysfunction status: with acute organ dysfunction (2) Left lower lobe pneumonia: Status: Acute Assessment and plan: DC vancomycin, continue Rocephin at increased dose of 2 g daily, at acapella, continue aerosolized bronchodilators as needed for wheezing, continue oxygen supplementation. Patient presently is hemodynamically and from a pulmonary standpoint stable for transfer to medical/surgical floor (3) Sleep apnea: Status: Suspected Assessment and plan: Continue with CPAP at night and during daytime naps. Qualifiers: Sleep apnea type: obstructive Qualified Code(s): G47.33 - Obstructive sleep apnea (adult) (pediatric) (4) Toxic metabolic encephalopathy: Status: Resolved (5) Hypoventilation associated with obesity: Status: Chronic Assessment and plan: CPAP as above (6) Chronic kidney disease, stage 3: Status: None Assessment and plan: He appears to have had worsening azotemia with his sepsis. His baseline creatinine is around 1.4 is now up to 1.8. We will continue with IV hydration for another 24 hours but now he is able to eat and drink hopefully we can get him off of IV fluids so he does not go into acute congestive heart failure. (7) Chronic diastolic heart failure: Status: Inactive Assessment and plan: Patient's last echocardiogram from May 13, 2020 showed preserved left ventricular right ventricular function but with moderately severe pulmonary hypertension he has no significant valvular heart disease. (8) DVT prophylaxis: Status: Acute Assessment and plan: Patient developed significant drop in his platelets overnight with enoxaparin. Did a risk score based on his acute thrombocytopenia to assess whether this is more likely HIT 1 versus HIT 2 and appears this is probably not immune mediated. He has no evidence of thrombosis at this point does not require other anticoagulation such as bivalirudin or argatroban or apixaban. We will use SCD and TRINITY hose and discontinue his heparin. (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 Assessment and plan: Discontinue enoxaparin. We will use mechanical antithrombotic devices such as TRINITY hose and SCDs. No need for argatroban or bivalirudin as his 4 T score is only 2 which puts him in low probability for immune mediated heparin-induced thrombocytopenia (10) Discharge planning issues: Status: Acute Subjective Subjective Interval history since last seen: Patient is much more alert and responsive to day. He feels like he is back to his baseline. He is requesting food. Blood cultures are positive 2 out of 2 cultures for Streptococcus species. Patient was started on Rocephin 1 g IV daily yesterday. Have increase that to 2 g daily. Vancomycin was added this morning prior to determining the species of the gram-positive cocci in the blood. At this point he no longer needs vancomycin. He remains on Rocephin and azithromycin. Chest 2 Views from yesterday demonstrated left lower lobe consolidation. He is now hemodynamically stable and his encephalopathy is cleared. Patient no longer needs intensive care unit monitoring. Exam Narrative Exam Narrative: Morbidly obese male sitting up in his bed watching TV in no respiratory discomfort. Not using accessory respiratory muscles. Lungs with diminished breath sounds at the left lung base. No rhonchi nor wheezing. Heart regular rate and rhythm Abdomen is obese soft and nontender. Lower extremities with venous stasis dermatitis changes of the pretibial surfaces skin is taut and shiny and hairless. Feet were examined there is no open sores although he does have some superficial scabs on the tops of his toes of right foot from abrasions. Examination of his sacrum reveals no open sores. Objective Last Vital Signs Temp 37.7 C H 01/04/21 12:23 Pulse 78 01/04/21 09:13 Resp 20 01/04/21 12:23 BP 124/50 L 01/04/21 09:13 Pulse Ox 98 01/04/21 12:23 Laboratory Results - last 24 hr 01/03/21 01/03/21 01/03/21 13:10 13:10 13:10 WBC RBC Hgb Hct MCV MCH MCHC RDW Plt Count MPV Immature Gran % Neutrophils % Lymphocytes % Monocytes % Eosinophils % Basophils % Nucleated RBC % Absolute Neutrophils Absolute Lymphocytes Absolute Monocytes Absolute Eosinophils Absolute Basophils RBC Morphology Polychromasia Poikilocytosis Basophilic Stippling Macrocytosis PT 10.2 INR 1.0 APTT 21.9 ABG Sample Site ABG pH ABG pCO2 ABG pO2 ABG HCO3 ABG Total CO2 ABG O2 Saturation ABG Base Excess VBG Lactate Oxygen Liter Flow FiO2 Sodium 142 Potassium 4.4 Chloride 104 Carbon Dioxide 34.5 H Anion Gap 3.5 BUN 33 H Creatinine 1.8 H Estimated GFR/1.73 m2 36.58 Glucose 137 H Calcium 9.0 Magnesium 2.1 Total Bilirubin 0.4 AST 27 ALT 21 Alkaline Phosphatase 86 Troponin I < 0.05 NT-Pro-B Natriuret Pep 1176 H Total Protein 6.6 Albumin 3.2 L Procalcitonin Urine Color Urine Clarity Urine pH Ur Specific [place] Urine Protein Urine Ketones Urine Blood Urine Nitrite Urine Bilirubin Urine Urobilinogen Ur Leukocyte Esterase Urine Glucose COVID-19 Source SARS-CoV-2 (PCR) Influenza Type A (PCR) Influenza Type B (PCR) RSV (PCR) 01/03/21 01/03/21 01/03/21 13:10 13:15 13:20 WBC RBC Hgb Hct MCV MCH MCHC RDW Plt Count MPV Immature Gran % Neutrophils % Lymphocytes % Monocytes % Eosinophils % Basophils % Nucleated RBC % Absolute Neutrophils Absolute Lymphocytes Absolute Monocytes Absolute Eosinophils Absolute Basophils RBC Morphology Polychromasia Poikilocytosis Basophilic Stippling Macrocytosis PT Cancelled INR Cancelled APTT ABG Sample Site ABG pH ABG pCO2 ABG pO2 ABG HCO3 ABG Total CO2 ABG O2 Saturation ABG Base Excess VBG Lactate Oxygen Liter Flow FiO2 Sodium Potassium Chloride Carbon Dioxide Anion Gap BUN Creatinine Estimated GFR/1.73 m2 Glucose Calcium Magnesium Total Bilirubin AST ALT Alkaline Phosphatase Troponin I NT-Pro-B Natriuret Pep Total Protein Albumin Procalcitonin Urine Color Yellow Urine Clarity Clear Urine pH 5.5 Ur Specific [place] 1.020 Urine Protein Negative Urine Ketones Negative Urine Blood Negative Urine Nitrite Negative Urine Bilirubin Negative Urine Urobilinogen 0.2 Ur Leukocyte Esterase Negative Urine Glucose Negative COVID-19 Source Nasopharyx SARS-CoV-2 (PCR) Negative Influenza Type A (PCR) Negative Influenza Type B (PCR) Negative RSV (PCR) Negative 01/03/21 01/03/2121 13:40 14:00 16:20 WBC 4.92 RBC 2.62 L Hgb 9.7 L Hct 29.7 L MCV 113.4 H MCH 37.0 H MCHC 32.7 RDW 15.2 H Plt Count 181 MPV 9.4 Immature Gran % 0.2 Neutrophils % 89.8 Lymphocytes % 5.5 Monocytes % 3.7 Eosinophils % 0.6 Basophils % 0.2 Nucleated RBC % 0 Absolute Neutrophils 4.42 Absolute Lymphocytes 0.27 L Absolute Monocytes 0.18 Absolute Eosinophils 0.03 Absolute Basophils 0.01 RBC Morphology See below Polychromasia Poikilocytosis Basophilic Stippling Macrocytosis 3+ PT INR APTT ABG Sample Site ABG pH ABG pCO2 ABG pO2 ABG HCO3 ABG Total CO2 ABG O2 Saturation ABG Base Excess VBG Lactate 1.2 Oxygen Liter Flow FiO2 Sodium Potassium Chloride Carbon Dioxide Anion Gap BUN Creatinine Estimated GFR/1.73 m2 Glucose Calcium Magnesium Total Bilirubin AST ALT Alkaline Phosphatase Troponin I < 0.05 NT-Pro-B Natriuret Pep Total Protein Albumin Procalcitonin Urine Color Urine Clarity Urine pH Ur Specific [place] Urine Protein Urine Ketones Urine Blood Urine Nitrite Urine Bilirubin Urine Urobilinogen Ur Leukocyte Esterase Urine Glucose COVID-19 Source SARS-CoV-2 (PCR) Influenza Type A (PCR) Influenza Type B (PCR) RSV (PCR) 01/03/21 01/03/21 01/03/21 16:20 18:16 20:40 WBC RBC Hgb Hct MCV MCH MCHC RDW Plt Count MPV Immature Gran % Neutrophils % Lymphocytes % Monocytes % Eosinophils % Basophils % Nucleated RBC % Absolute Neutrophils Absolute Lymphocytes Absolute Monocytes Absolute Eosinophils Absolute Basophils RBC Morphology Polychromasia Poikilocytosis Basophilic Stippling Macrocytosis PT INR APTT ABG Sample Site Left radial ABG pH 7.35 ABG pCO2 61 H* ABG pO2 75 L ABG HCO3 34 H ABG Total CO2 32 H ABG O2 Saturation 95 ABG Base Excess 8 H VBG Lactate Oxygen Liter Flow Bipap 14/5 FiO2 30 Sodium Potassium Chloride Carbon Dioxide Anion Gap BUN Creatinine Estimated GFR/1.73 m2 Glucose Calcium Magnesium Total Bilirubin AST ALT Alkaline Phosphatase Troponin I < 0.05 NT-Pro-B Natriuret Pep Total Protein Albumin Procalcitonin 6.6 Urine Color Urine Clarity Urine pH Ur Specific [place] Urine Protein Urine Ketones Urine Blood Urine Nitrite Urine Bilirubin Urine Urobilinogen Ur Leukocyte Esterase Urine Glucose COVID-19 Source SARS-CoV-2 (PCR) Influenza Type A (PCR) Influenza Type B (PCR) RSV (PCR) 01/03/21 01/04/21 01/04/21 20:40 06:44 06:44 WBC 4.77 RBC 3.92 L Hgb 14.7 D Hct 45.0 D MCV 114.8 H MCH 37.5 H MCHC 32.7 RDW 15.8 H Plt Count 99 L MPV 9.6 Immature Gran % 0.2 Neutrophils % 86.8 Lymphocytes % 6.3 Monocytes % 6.3 Eosinophils % 0.2 Basophils % 0.2 Nucleated RBC % 0 Absolute Neutrophils 4.14 Absolute Lymphocytes 0.30 L Absolute Monocytes 0.30 Absolute Eosinophils 0.01 Absolute Basophils 0.01 RBC Morphology See below Polychromasia Present Poikilocytosis 1+ Basophilic Stippling Present Macrocytosis 3+ PT INR APTT ABG Sample Site ABG pH ABG pCO2 ABG pO2 ABG HCO3 ABG Total CO2 ABG O2 Saturation ABG Base Excess VBG Lactate 1.4 Oxygen Liter Flow FiO2 Sodium 149 H Potassium 4.4 Chloride 110 H Carbon Dioxide 33.1 H Anion Gap 5.9 BUN 31 H Creatinine 1.8 H Estimated GFR/1.73 m2 36.58 Glucose 118 H Calcium 8.4 L Magnesium Total Bilirubin AST ALT Alkaline Phosphatase Troponin I NT-Pro-B Natriuret Pep Total Protein Albumin Procalcitonin Urine Color Urine Clarity Urine pH Ur Specific [place] Urine Protein Urine Ketones Urine Blood Urine Nitrite Urine Bilirubin Urine Urobilinogen Ur Leukocyte Esterase Urine Glucose COVID-19 Source SARS-CoV-2 (PCR) Influenza Type A (PCR) Influenza Type B (PCR) RSV (PCR)
--- NOTE | 2021-01-04 12:58 | PT.INTREAT ---
Date of service: 01/04/21 Time of Service: 12:58 PT Notes Visit Reasons: PNEUMONIA/ SEPSIS/ AMS Physical Therapy Inpatient Treatment Note Date: 01/04/2021 Precautions: Fall. Standard. Activity as tolerated. COVID-19 negative. Subjective: Appeared more awake and did not appear confused this afternoon. Still was apprehensive about getting out of bed and initially refused but with encouragement, he agreed to do so. Nurse student Ibis assisted for safety. Continues to report fatigue and pain in B LE. Objective: General Observation: Patient supine in bed. Lethargic. Telemetry monitoring in place. Bansal catheter in place. Bilateral TEDS on legs. On 2.5 L of oxygen per minute via NC. DANDRE Lime assisting with mobility assessment for safety. UE/LE tremors increase with effort. Mental Status: Now oriented x 3 Pain: 8/10 with weight bearing Sensation: Intact as to pain and pressure on bilateral lower extremities. Bed Mobility/Transfers: Supine-sit: moderate assist Sit-supine: minimal assist of 2 with HOB at 45 degrees Gait: Attempted to perform transfer from edge of bed to chair but patient desaturated to 79% after 2 attempts at doing sit-stands despite increase of oxygen supply to 3 L/minute. Balance: Static Sitting: Normal Dynamic Sitting: Normal Static Standing: Unable Dynamic Standing: Unable Assessment: Manjit appears more awake and able to follow instructions than he did this morning. Reports 7/10 pain in his B legs at rest and 8-9/10 pain with weight bearing. Continues to be anxious about moving due to neuropathic pain complaint and increased tremors. Desaturates with out-of bed activity. PLAN: Continue with services to achieve highest functional level. Coordinate session with nurse for pre-medication for pain. DISCHARGE RECOMMENDATIONS: SNF vs. HH PT. TREATMENT CODE/TIME: 15776 x 31 minutes beginning at 12:58 PM.
--- NOTE | 2021-01-04 14:32 | PHACLINREV_ITS ---
Pharmacy Admission Review - Admission Clinical Review (Last Updated 01/04/21 @ 12:52 by Festus Galarza) HIT (heparin-induced thrombocytopenia) (Acute) Left lower lobe pneumonia (Acute) Altered mental status (Acute) Acute on chronic diastolic CHF (congestive heart failure), NYHA class 1 (Acute) Sepsis (Acute) DVT prophylaxis (Acute) Discharge planning issues (Acute) No Known Drug Allergies Allergy (Unverified 05/12/20 00:04) Height 5 ft 8 in Weight 97 kg - Renal Dosing Renal Dosing: BUN 31 mg/dL (7-18) H 01/04/21 06:44 Creatinine 1.8 mg/dL (0.70-1.30) H 01/04/21 06:44 Medications needing adjustments: Intervened (Crcl ~37.6 mL/min using adjusted body weight. Recommended to renally adjust gabapentin dosing, will mention to provider.) - Anticoagulation Anticoagulation: Hgb 14.7 g/dL (13.5-17.5) D 01/04/21 06:44 Hct 45.0 % (40.0-50.0) D 01/04/21 06:44 Plt Count 99 10^3/uL (130-400) L 01/04/21 06:44 INR 1.0 (0.9-1.1) 01/03/21 13:10 INR Cancelled 01/03/21 13:10 Creatinine 1.8 mg/dL (0.70-1.30) H 01/04/21 06:44 DVT Prohphylaxis: Intervened (Platelets dropped from 181 yesterday to 99 this morning, brought to providers attention. Enoxaparin discontinued, TEDs/SCDs ordered.) - Opiate Usage Evaluate Pain Scale/Pains Meds: Reviewed Scheduled Bowel Reg ordered if on Opiates?: No (has PRN meds) - Relevant Labs Sodium 149 mmol/L (136-145) H 01/04/21 06:44 Potassium 4.4 mmol/L (3.5-5.1) 01/04/21 06:44 Chloride 110 mmol/L (98-107) H 01/04/21 06:44 Magnesium 2.1 mg/dL (1.8-2.4) 01/03/21 13:10 Electrolytes, C-Reactive P, ESR: Reviewed - DM Control DM Control: Glucose 118 mg/dL (74-106) H 01/04/21 06:44 Insulin Dosing: N/A (BG mildly elevated so far this admission, no DM noted in med history or A1c on file.) - Heart Failure/CO Heart Failure/CO: Troponin I < 0.05 ng/mL (<0.06) 01/03/21 20:40 NT-Pro-B Natriuret Pep 1176 pg/mL (<300) H 01/03/21 13:10 EF%, TEDDY's, B-Blockers, Diuretics: Reviewed - BP Control BP Control: Blood Pressure [Right Arm] 130/57 Blood Pressure 134/58 Blood Pressure 133/52 Blood Pressure 118/44 Blood Pressure 126/44 Blood Pressure 124/50 Blood Pressure 132/49 Blood Pressure 134/49 Blood Pressure 132/52 Blood Pressure 139/60 Blood Pressure 130/57 Blood Pressure 127/50 Blood Pressure 124/48 If elevated: N/A - Qtc Review If Elevated: N/A (QTc 433 on admission) - IV to PO Switch IV Medications: Reviewed - Home Meds Home Med List reviewed: Reviewed (Multiple [employer]N SHELLER depressants. Separate admin of multivitamin from calcium/vitD) Relevent Home Meds Not ordered & why?: Clotrimazole, vit A+D, and zinc (compound from previous admission, nursing comment on home med list says pt not taking). denosumab, lisinopril, and lupron - Current meds Current Medication Order Review: Intervened (Discontinued duplicate med orders.) - Comments Comments/Follow Ups: Watch VS, SCr, plts, for culture results and for med changes (need of additional BM meds, renal dosing adjustments). Antibiotic Activity - Pharmacy Antibiotic Review Pharmacy Antibiotic Activity: C/S review - Antibiotic Information Antibiotic Review Info: Blood cultures growing strep, MRSA screen pending. Vanco added then discontined before a dose was given. Azithromycin discontinued. Ceftriaxone increased to 2 grams daily.
[2021-01-04] MEDS: cefTRIAXone 2 GM/50 ML BAG IVPB (14:53)
[2021-01-05] VITALS (28 sets, daily range): BP systolic 106–153; BP diastolic 44–75; PULSE 60–128; RESP 10–21; TEMP 36–37.2; O2SAT 95–100
[2021-01-05 07:15] LABS: Anion Gap 1.5 mmol/L (3-11); BUN 28 mg/dL (7-18); CO2 32.5 mmol/L (21.0-32.0); CREATININE 1.3 mg/dL (0.70-1.30); Calcium 7.9 mg/dL (8.5-10.1); Chloride 110 mmol/L (98-107); Estimated GFR 53.25 (mL/min/1.73m2); Glucose 135 mg/dL (74-106); Potassium 3.8 mmol/L (3.5-5.1); Sodium 144 mmol/L (136-145)
[2021-01-05] MEDS: Calcium 600mg/Vit D 200U TAB 1 TAB PO (10:00)
[2021-01-05] MEDS: Docusate Sodium 100 MG CAP PO (10:00)
[2021-01-05] MEDS: Multivitamin TAB 1 TAB PO (10:00)
[2021-01-05] MEDS: Acetaminophen 325 MG TAB PO ×2 (10:00→19:05)
[2021-01-05] MEDS: Gabapentin 400 MG CAP 800 MG PO ×2 (10:00→19:09)
[2021-01-05] MEDS: Metoprolol CR 100 MG TABCR PO (10:00)
--- NOTE | 2021-01-05 12:16 | PT.INTREAT ---
Date of service: 01/05/21 Time of Service: 13:16 PT Notes Visit Reasons: PNEUMONIA/ SEPSIS/ AMS Physical Therapy Inpatient Treatment Note Date: 01/05/2021 Precautions: Fall. Standard. Activity as tolerated. Subjective: Agrreable to PT sessions in the AM and PM. Much more cooperative and less anxious about getting up and moving compared to yesterday. Indicates that at home, he uses an Up walker which has forearm bilateral platforms positioned high up that provided better assistance for his trunk that allows him to stand taller. Objective: General Observation: Nurse uranium processing supervisor Elodia assisted with mobility activity for safety. Patient seated on bedside chair. Telemetry monitoring in place. Bansal catheter in place. Bilateral TEDS on legs. On 2.5 L of oxygen per minute via NC. Nurse Gladys assisting to reduce fall risk. UE/LE tremors significantly reduced. Mental Status: Now oriented x 4 Pain: Chronic pain in low back at 2-3/10 in the back during ambulation activity, subsided with rest Sensation: Intact as to pain and pressure on bilateral lower extremities. Bed Mobility/Transfers: Sit to stand CGA with manual stability provided to regular chair to prevent it from sliding back Stand to sit standby assist Bed to chair minimal assist Gait: Again provided cueing for patient with short in-room ambulation of 20 to 25 feet requiring minimal assistance and standby assist of nurse uranium processing supervisor Elodia in the morning for safety. Trunk bent forward as position of comfort, hip and knee flexion decreased, MARNI wide. Complained of fatigue but with no LE pain unlike yesterday. In the afternoon patient required contact-guard assist of 2 to cover same distance with same gait deviation, Nurse Graham assisting for safety. Balance: Static Sitting: Normal Dynamic Sitting: Normal Static Standing: Fair Dynamic Standing: Fair Assessment: Manjit remains on 2 L of oxygen supplementation per minute via NC. Mental status now at baseline. Pain level is much more improved. Activity tolerance for ambulation significantly increased. Continue with PT services in order to achieve prior level of function. PLAN: In the next session, attach bilateral platforms to walker and extend walker height to minimize trunk bending during ambulation activity. Coordinate session with nurse for pre-medication for pain. DISCHARGE RECOMMENDATIONS: SNF vs. PT. TREATMENT CODE/TIME: Session 1??[id number] x 38 minutes beginning at 10:32 AM. Session 2??[id number] x 25 minutes, 80680 x 14 minutes beginning at 13:16 PM.
--- NOTE | 2021-01-05 12:24 | CMPROGNOTE_ITS ---
- If Service Date Differs Date of service: 01/05/21 Time of Service: 12:25 Care Management Progress Note S/O:Lester was sitting up in a chair when CM met with him. He appeared to be in good spirits and was open and friendly in interaction. Lester stated that he is feeling much better and hopes to be able to go home tomorrow. During the visit the laboratory animal facility supervisor came to draw blood cultures. Lester teased her and asked a lot of questions. Lester seems totally clear and mentally sharp today. Additional conversations about a myriad of subjects reinforced that perception.. CM has been asked to assist Lester and his with the completion of advanced directives. The original goal was to do them this afternoon but will be done tomorrow instead. A: Lester is a 80 year old man admitted on 01/03/21 with pneumonia P:Lester will discharge home with no new services but will have a resumption of th e caregivers that are hired privately for him. He will follow up with his PCP and discharge plan of care and transport with his . CM will continue to support Lester and his family and assess for discharge planning needs.
[2021-01-05 13:04] LABS: HGB 7.8 g/dL (13.5-17.5); MCH 36.3 pg (27.0-33.0); MCHC 31.2 % (32.0-36.0); MCV 116.3 fL (80-95); RBC 2.15 10^6/uL (4.36-5.78); WBC 5.17 10^3/uL (4.4-10.8)
[2021-01-05 13:05] LABS: Absolute Eosinophil Count 0.01 10^3/uL (0.0-0.7); Absolute Lymphocyte Count 0.41 10^3/uL (1.2-3.4); Absolute Monocyte Count 0.44 10^3/uL (0.1-0.8); Absolute Neutrophil Count 4.29 10^3/uL (1.2-6.7); Eosinophils % 0.2; Immature Grans % 0.4; Lymphocytes % 7.9; MPV 9.4 fL (8.0-11.0); Monocytes % 8.5; Platelet Count 133 10^3/uL (130-400); RDW 15.7 % (11.8-14.1); RDW-SD 65.8 fL
--- NOTE | 2021-01-05 13:05 | PGE_ITS ---
Date of Service Date of service: 01/05/21 Time of Service: 13:05 Assessment and Plan Assessment and plan (1) Sepsis: Status: Acute Qualifiers: Sepsis type: Streptococcus, unspecified Sepsis acute organ dysfunction status: with acute organ dysfunction Acute respiratory failure type: with hypo flavia Severe sepsis shock status: without septic shock (2) Left lower lobe pneumonia: Status: Acute (3) Sleep apnea: Status: Suspected Qualifiers: Sleep apnea type: obstructive Qualified Code(s): G47.33 - Obstructive sleep apnea (adult) (pediatric) (4) Toxic metabolic encephalopathy: Status: Resolved (5) Hypoventilation associated with obesity: Status: Chronic (6) Chronic kidney disease, stage 3: Status: None (7) Chronic diastolic heart failure: Status: Inactive (8) DVT prophylaxis: Status: Acute (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 (10) Discharge planning issues: Status: Acute Subjective Subjective Interval history since last seen: See handwritten progress note from computer downtime this morning Exam Narrative Exam Narrative: See handwritten progress note from computer downtime this morning Objective Last Vital Signs Temp 36.0 C L 01/05/21 02:48 Pulse 61 01/05/21 12:06 Resp 13 01/05/21 12:06 BP 125/56 L 01/05/21 12:06 Pulse Ox 98 01/05/21 12:06 Laboratory Results - last 24 hr 01/05/21 06:10 Sodium 144 Potassium 3.8 Chloride 110 H Carbon Dioxide 32.5 H Anion Gap 1.5 L BUN 28 H Creatinine 1.3 D Estimated GFR/1.73 m2 53.25 Glucose 135 H Calcium 7.9 L
[2021-01-05 13:07] LABS: Abs Immature Grans 0.02 10^3/uL (0.0-0.06); Nucleated RBC 0 %
[2021-01-05 13:10] LABS: Anisocytosis 1+; Basophilic Stippling Present; Macrocytosis 3+
[2021-01-05 13:26] LABS: Procalcitonin 15.1 ng/mL
[2021-01-05 13:28] LABS: Ferritin 406 ng/mL (26-388); Folate 17.5 ng/mL (8.6-20.0); LDH 341 U/L (85-227); Vitamin B12 605 pg/mL (193-986)
[2021-01-05 13:29] LABS: Iron 17 ug/dL (65-175); Total Iron Binding Capacity 151 ug/dL (250-450); Transferrin Sat 11 % (20-55)
[2021-01-05] MEDS: cefTRIAXone 2 GM/50 ML BAG IVPB (14:23)
[2021-01-05] MEDS: Pantoprazole 20 MG TABCR PO (14:23)
[2021-01-05] MEDS: fentaNYL 12 MCG PATCH TD (20:36)
[2021-01-05] MEDS: fentaNYL 25 MCG PATCH TD (20:39)
[2021-01-06] VITALS (8 sets, daily range): BP systolic 133–140; BP diastolic 52–90; PULSE 57–67; RESP 22; TEMP 36.5–37.6; O2SAT 94–100
[2021-01-06] MEDS: Normal Saline Flush 10 ML SYR ×2 (06:03→21:10)
[2021-01-06 06:05] LABS: Abs Immature Grans 0.01 10^3/uL (0.0-0.06); Absolute Basophil Count 0.01 10^3/uL (0.0-0.2); Absolute Eosinophil Count 0.06 10^3/uL (0.0-0.7); Absolute Lymphocyte Count 0.61 10^3/uL (1.2-3.4); Absolute Neutrophil Count 3.64 10^3/uL (1.2-6.7); Basophils % 0.2; Eosinophils % 1.2; HCT 24.7 % (40.0-50.0); HGB 8.2 g/dL (13.5-17.5); Immature Grans % 0.2; Lymphocytes % 12.6; MCH 37.6 pg (27.0-33.0); MCHC 33.2 % (32.0-36.0); MCV 113.3 fL (80-95); MPV 10.5 fL (8.0-11.0); Monocytes % 10.4; Neutrophils % 75.4; Nucleated RBC 0 %; Platelet Count 170 10^3/uL (130-400); RBC 2.18 10^6/uL (4.36-5.78); RDW 15.6 % (11.8-14.1); RDW-SD 64.7 fL; WBC 4.83 10^3/uL (4.4-10.8)
[2021-01-06 06:15] LABS: Anion Gap 3.6 mmol/L (3-11); CO2 32.4 mmol/L (21.0-32.0); CREATININE 1.2 mg/dL (0.70-1.30); Chloride 104 mmol/L (98-107); Glucose 116 mg/dL (74-106); Potassium 4.2 mmol/L (3.5-5.1); Sodium 140 mmol/L (136-145)
[2021-01-06 06:18] LABS: BUN 25 mg/dL (7-18)
[2021-01-06 06:32] LABS: Basophilic Stippling Present; Macrocytosis 3+
[2021-01-06] MEDS: Pantoprazole 20 MG TABCR PO (08:44)
[2021-01-06] MEDS: Gabapentin 400 MG CAP 800 MG PO ×2 (08:44→19:33)
[2021-01-06] MEDS: Metoprolol CR 100 MG TABCR PO (08:44)
[2021-01-06] MEDS: Multivitamin TAB 1 TAB PO (08:44)
[2021-01-06] MEDS: Calcium 600mg/Vit D 200U TAB 1 TAB PO (08:44)
[2021-01-06] MEDS: Fluticasone NASAL SPRAY 16 GM BTL NS (08:46)
[2021-01-06] MEDS: Ferrous Sulfate 325 MG TAB PO ×2 (10:39→21:06)
--- NOTE | 2021-01-06 12:59 | PGE_ITS ---
Date of Service Date of service: 01/06/21 Time of Service: 12:59 Assessment and Plan Assessment and plan (1) Sepsis: Status: Resolved Assessment and plan: Sepsis has resolved. His encephalopathy has resolved. His blood cultures grew Streptococcus dysgalactiae (group G strep). Currently on Rocephin 2 g IV daily. We will continue parenteral antibiotics until his blood cultures are negative. Repeat blood cultures obtained today. Qualifiers: Sepsis type: Streptococcus, unspecified Sepsis acute organ dysfunction status: with acute organ dysfunction Acute respiratory failure type: with hypoxia Severe sepsis shock status: without septic shock (2) Left lower lobe pneumonia: Status: Acute Assessment and plan: Continue bronchodilators and Rocephin along with incentive spirometry and Acapella. Continue physical therapy and early mobilization. Once his blood culture showed no growth we can switch him over to oral antibiotics to complete 10-day course of antibiotics. (3) Sleep apnea: Status: Suspected Assessment and plan: Continue with CPAP at night and during daytime naps. Patient's been refusing his CPAP at night. Qualifiers: Sleep apnea type: obstructive Qualified Code(s): G47.33 - Obstructive sleep apnea (adult) (pediatric) (4) Toxic metabolic encephalopathy: Status: Resolved (5) Hypoventilation associated with obesity: Status: Chronic Assessment and plan: CPAP as above (6) Chronic kidney disease, stage 3: Status: None Assessment and plan: Azotemia has resolved. BUN is now 25 creatinine 1.2 with correction of his electrolyte abnormalities. (7) Chronic diastolic heart failure: Status: Inactive Assessment and plan: Patient's last echocardiogram from May 13, 2020 showed preserved left ventricular right ventricular function but with moderately severe pulmonary hypertension he has no significant valvular heart disease. IV fluids were discontinued yesterday as his sepsis had resolved and he no longer had hypotension and is currently eating and drinking well. (8) DVT prophylaxis: Status: Acute Assessment and plan: apparently the lab mis-reported his CBC results on 01/04/2021 in which his platelet count was reported as 99,000 (down from 181,000); however the lab then reported to nursing that the lab results were unreliable and they are no longer showing up in his lab results; however, I was not informed of this lab error. 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 At this time I am doubting the diagnosis and will no longer include this in his diagnosis. for now he can use SCD and TEDS hose. (9) Discharge planning issues: Status: Acute Subjective Subjective Patient reports: no new complaints Interval history since last seen: Patient denies any dyspnea or chest pain or abdominal pain. He ambulated for physical therapy today unfortunately he walks with a front wheel walker bent over. He says he is looked online and is ordered an upright platform walker which he uses at home. We are repeating his blood cultures today and if they come back no growth we can switch him to oral antibiotics and possibly discharge tomorrow Exam Narrative Exam Narrative: Alert and oriented person place time circumstance no discomfort. He just completed his lunch is sitting up in a chair. Lungs are clear to auscultation although somewhat diminished at the bases no rhonchi wheezes or rales Heart regular rate and rhythm Abdomen is obese soft nontender nondistended Extremities without edema. Bansal catheter draining clear yellow urine. Objective Last Vital Signs Temp 36.5 C 01/06/21 03:17 Pulse 67 01/06/21 11:52 Resp 14 01/05/21 15:47 BP 140/90 01/06/21 11:52 Pulse Ox 94 01/06/21 11:46 Laboratory Results - last 24 hr 01/04/21 01/05/21 01/05/21 06:44 06:10 06:10 WBC Cancelled 5.17 RBC Cancelled 2.15 L Hgb Cancelled 7.8 L Hct Cancelled 25.0 L MCV Cancelled 116.3 H MCH Cancelled 36.3 H MCHC Cancelled 31.2 L RDW Cancelled 15.7 H Plt Count Cancelled 133 MPV Cancelled 9.4 Reticulocyte % (Auto) Immature Gran % Cancelled 0.4 Neutrophils % Cancelled 83.0 Band Neutrophils % Cancelled Lymphocytes % Cancelled 7.9 Atypical Lymphs % Cancelled Monocytes % Cancelled 8.5 Eosinophils % Cancelled 0.2 Basophils % Cancelled 0.0 Metamyelocytes % Cancelled Myelocytes % Cancelled Promyelocytes % Cancelled Other Cells % Cancelled Nucleated RBC % Cancelled 0 Absolute Neutrophils Cancelled 4.29 Absolute Lymphocytes Cancelled 0.41 L Absolute Monocytes Cancelled 0.44 Absolute Eosinophils Cancelled 0.01 Absolute Basophils Cancelled 0.00 RBC Morphology Cancelled Polychromasia Cancelled Hypochromasia Cancelled Poikilocytosis Cancelled Basophilic Stippling Cancelled Present Anisocytosis Cancelled 1+ Microcytosis Cancelled Macrocytosis Cancelled 3+ Spherocytes Cancelled Tear Drop Cells Cancelled Ovalocytes Cancelled Stomatocytes Cancelled [place] Bodies Cancelled Isaías Cells/Echinocytes Cancelled Acanthocytes (Spur) Cancelled Schistocytes Cancelled Sodium Potassium Chloride Carbon Dioxide Anion Gap BUN Creatinine Estimated GFR/1.73 m2 Glucose Calcium Iron TIBC Transferrin % Sat Ferritin Lactate Dehydrogenase Vitamin B12 Folate Procalcitonin 15.1 01/05/21 01/05/21 01/05/21 06:10 06:10 06:10 WBC RBC Hgb Hct MCV MCH MCHC RDW Plt Count MPV Reticulocyte % (Auto) 1.0 Immature Gran % Neutrophils % Band Neutrophils % Lymphocytes % Atypical Lymphs % Monocytes % Eosinophils % Basophils % Metamyelocytes % Myelocytes % Promyelocytes % Other Cells % Nucleated RBC % Absolute Neutrophils Absolute Lymphocytes Absolute Monocytes Absolute Eosinophils Absolute Basophils RBC Morphology Polychromasia Hypochromasia Poikilocytosis Basophilic Stippling Anisocytosis Microcytosis Macrocytosis Spherocytes Tear Drop Cells Ovalocytes Stomatocytes [place] Bodies [place] Cells/Echinocytes Acanthocytes (Spur) Schistocytes Sodium Potassium Chloride Carbon Dioxide Anion Gap BUN Creatinine Estimated GFR/1.73 m2 Glucose Calcium Iron 17 L TIBC 151 L Transferrin % Sat 11 L Ferritin 406 H Lactate Dehydrogenase 341 H Vitamin B12 605 Folate 17.5 Procalcitonin 01/06/21 01/06/21 05:56 05:56 WBC 4.83 RBC 2.18 L Hgb 8.2 L Hct 24.7 L MCV 113.3 H D MCH 37.6 H MCHC 33.2 RDW 15.6 H Plt Count 170 MPV 10.5 Reticulocyte % (Auto) Immature Gran % 0.2 Neutrophils % 75.4 Band Neutrophils % Lymphocytes % 12.6 Atypical Lymphs % Monocytes % 10.4 Eosinophils % 1.2 Basophils % 0.2 Metamyelocytes % Myelocytes % Promyelocytes % Other Cells % Nucleated RBC % 0 Absolute Neutrophils 3.64 Absolute Lymphocytes 0.61 L Absolute Monocytes 0.50 Absolute Eosinophils 0.06 Absolute Basophils 0.01 RBC Morphology See below Polychromasia Hypochromasia Poikilocytosis Basophilic Stippling Present Anisocytosis Microcytosis Macrocytosis 3+ Spherocytes Tear Drop Cells Ovalocytes Stomatocytes [place] Bodies [place] Cells/Echinocytes Acanthocytes (Spur) Schistocytes Sodium 140 Potassium 4.2 Chloride 104 Carbon Dioxide 32.4 H Anion Gap 3.6 BUN 25 H Creatinine 1.2 Estimated GFR/1.73 m2 58.40 Glucose 116 H Calcium 8.0 L Iron TIBC Transferrin % Sat Ferritin Lactate Dehydrogenase Vitamin B12 Folate Procalcitonin
[2021-01-06] MEDS: cefTRIAXone 2 GM/50 ML BAG IVPB (13:35)
--- NOTE | 2021-01-06 15:37 | RESPIRATORY ---
Had discussion with Pt regarding time when Pt will be D/C and discussed portable oxygen. Pt stated that his would bring in home oxygen tank when time of D/C came.
--- NOTE | 2021-01-06 16:11 | PT.INTREAT ---
Date of service: 01/06/21 Time of Service: 08:25 PT Notes Visit Reasons: PNEUMONIA/ SEPSIS/ AMS Inpatient Physical Therapy Treatment Note [facility] Date: 01/06/2021 PRECAUTIONS: Fall SUBJECTIVE: Lester is pleasant and agreeable to participating in PT. He reports that he is feeling much better today and hopes to be discharged to home soon. OBJECTIVE: PAIN: No c/o pain BED MOBILITY/TRANSFERS Supine-sit: S with HOB at 30 degrees with 3# ankle weights Sit-stand: SBA Stand-sit: SBA Bed-chair: SBA GAIT Assistive Device: FWW Weight bearing: Full Assist: SBA in a.m.; CGA in p.m. Distance: 5' in a.m.; 60' in p.m. Deviation: Significant trunk flexion (baseline), decreased hip and knee flexion (baseline), wide MARNI (baseline) THEREX: Patient was instructed in a resisted UE and LE strengthening program, performed in a seated position, as per flow sheet. Patient utilized 3# dumbbells and 3# ankle weights for exercise completion. ASSESSMENT: Patient tolerated session well, without complaint of pain or SOB. He was able to tolerate a progression in gait distance, demonstrating forward flexed trunk posture, which is his baseline. PLAN: Continue with global strengthening and continued gait for improved activity tolerance. TREATMENT CODE/TIME: Session 1: 25 minutes; 50708, [id number] (08:25) Session 2: 30 minutes; [id number], [id number] (11:25)
--- NOTE | 2021-01-06 16:39 | PDOC.CMPRO ---
- If Service Date Differs Date of service: 01/06/21 Time of Service: 16:39 Care Management Progress Note S/O:Lester was sitting up in a chair when CM met with him. He was dozing and indicated that he did not wish to have a conversation at that time. Lester continues to improve. He was able to ambulate 60 feel with PT this afternoon and shared with PT that he hopes to be discharged soon. Lester's vital signs are stable and to date his repeat blood cultures are negative at 24 hours. A: Lester is a 80 year old man admitted on 01/03/21 with pneumonia P:Lester will discharge home with no new services but will have a resumption of the caregivers that are hired privately for him. He will follow up with his PCP and discharge plan of care and transport with his . CM will continue to support Lester and his family and assess for discharge planning needs.
[2021-01-06] MEDS: Acetaminophen 325 MG TAB PO (19:33)
[2021-01-06 23:58] LABS: HIT ELISA <0.075 OD (<0.400); HIT Interpretation Negative (Negative)
[2021-01-07 00:12] VITALS: BP 171/79; PULSE 56; RESP 20; TEMP 36.9; O2SAT 91
[2021-01-07 03:14] VITALS: BP 184/74; PULSE 61; RESP 20; TEMP 36.6; O2SAT 98
[2021-01-07] MEDS: Acetaminophen 325 MG TAB PO ×2 (07:42→20:00)
[2021-01-07] MEDS: Pantoprazole 20 MG TABCR PO (07:43)
[2021-01-07] MEDS: Multivitamin TAB 1 TAB PO (07:43)
[2021-01-07] MEDS: Gabapentin 400 MG CAP 800 MG PO ×2 (07:43→20:01)
[2021-01-07] MEDS: Metoprolol CR 100 MG TABCR PO (07:43)
[2021-01-07] MEDS: Calcium 600mg/Vit D 200U TAB 1 TAB PO (07:43)
[2021-01-07] MEDS: Fluticasone NASAL SPRAY 16 GM BTL NS (07:43)
[2021-01-07 07:49] VITALS: BP 183/77; PULSE 58; RESP 19; TEMP 36.8; O2SAT 100
--- NOTE | 2021-01-07 12:12 | W.NUTRFU ---
Date of service: 01/07/21 Time of Service: 12:12 Nutritional Follow up NOTE: 80 year old male admitted with AMS, with CHF and hx of prostate cancer with bone mets. Following regular diet with adequate intake. Not considered at nutritional risk. Will continue to follow. Time Spent in Nutritional Counseling and Treatment: 0
[2021-01-07] MEDS: Lisinopril 10 MG TAB PO (12:41)
[2021-01-07] MEDS: Normal Saline Flush 10 ML SYR (13:59)
[2021-01-07] MEDS: cefTRIAXone 2 GM/50 ML BAG IVPB (14:00)
--- NOTE | 2021-01-07 14:29 | PT.INNT ---
Date of service: 01/07/21 Time of Service: 14:29 PT Notes Visit Reasons: PNEUMONIA/ SEPSIS/ AMS 01/07/2021 Manjit refused to participate in PT in both a.m. and p.m. as he feels he is at his baseline level of function.
[2021-01-07 15:27] VITALS: BP 162/73; PULSE 54; RESP 16; TEMP 37.1; O2SAT 99
--- NOTE | 2021-01-07 15:31 | CHAPLAIN ---
Lester was up in his chair when I visited. I introduced myself and offered support. Lester said he is a member of a [employer]ist in [place], so that he is well covered by gnosticist. He is hoping to go home soon. He talked about missing his and she missing him.
[2021-01-07] MEDS: Furosemide 40 MG TAB PO (16:06)
--- NOTE | 2021-01-07 16:46 | W.PM.PROGNOT ---
Date of Service Date of service: 01/07/21 Time of Service: 16:46 Assessment and Plan Assessment and plan (1) Left lower lobe pneumonia: Status: Acute Assessment and plan: Continue bronchodilators and Rocephin along with incentive spirometry and Acapella. Continue physical therapy and early mobilization. Once his blood culture showed no growth we can switch him over to oral antibiotics to complete 10-day course of antibiotics. (2) Sleep apnea: Status: Suspected Assessment and plan: Continue with CPAP at night and during daytime naps. Patient's been refusing his CPAP at night. Qualifiers: Sleep apnea type: obstructive Qualified Code(s): G47.33 - Obstructive sleep apnea (adult) (pediatric) (3) Hypoventilation associated with obesity: Status: Chronic Assessment and plan: CPAP as above (4) Chronic kidney disease, stage 3: Status: None Assessment and plan: Azotemia has resolved. BUN is now 25 creatinine 1.2 with correction of his electrolyte abnormalities. (5) Chronic diastolic heart failure: Status: Inactive Assessment and plan: Patient's last echocardiogram from May 13, 2020 showed preserved left ventricular right ventricular function but with moderately severe pulmonary hypertension he has no significant valvular heart disease. IV fluids were discontinued yesterday as his sepsis had resolved and he no longer had hypotension and is currently eating and drinking well. I put him back on his lisinopril and diuretics today (6) DVT prophylaxis: Status: Acute Assessment and plan: apparently the lab mis-reported his CBC results on 01/04/2021 in which his platelet count was reported as 99,000 (down from 181,000); however the lab then reported to nursing that the lab results were unreliable and they are no longer showing up in his lab results; however, I was not informed of this lab error. 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 At this time I am doubting the diagnosis and will no longer include this in his diagnosis. for now he can use SCD and TEDS hose. (7) Discharge planning issues: Status: Acute Assessment and plan: Discharge home in the morning after his last dose of ceftriaxone tomorrow morning. Pharmacist is time to his Rocephin to be given at 10 AM. Per day care attendant he will need no new home health services but will continue with his private caregivers. I updated his regarding Lester's condition and plan for discharge tomorrow with a follow-up chest x-ray upon completion of oral antibiotics. Subjective Subjective Interval history since last seen: Manjit has no new complaints he denies shortness of breath. Minimal cough productive of clear mucus. No chest discomfort. Exam Narrative Exam Narrative: Obese male alert and oriented person place time circumstance sitting up in his chair watching television. Lungs are clear but diminished at the bases no rhonchi or rales Heart regular rate and rhythm Abdomen obese soft and nontender Lower extremities are obese with a trace of edema Objective Last Vital Signs Temp 37.1 C 01/07/21 15:27 Pulse 54 L 01/07/21 15:27 Resp 16 01/07/21 15:27 BP 162/73 H 01/07/21 15:27 Pulse Ox 99 01/07/21 15:27 Laboratory Results - last 24 hr 01/04/21 13:34 Hep-Induced Plt Ab Aruna <0.075 Heparin-PF4 Ab Inhibit Not Applicable Heparin-PF4 Ab Interp Negative Heparin-PF4 Ab Comment See comment
[2021-01-07] MEDS: fentaNYL 12 MCG PATCH TD (18:38)
[2021-01-07] MEDS: fentaNYL 25 MCG PATCH TD (18:41)
[2021-01-07 20:05] VITALS: BP 177/69; PULSE 62; RESP 18; TEMP 37.9; O2SAT 99
--- NOTE | 2021-01-07 21:45 | CMPROGNOTE_ITS ---
- If Service Date Differs Date of service: 01/07/21 Time of Service: 21:45 Care Management Progress Note S/O:Lester was sitting up in a chair when CM met with him. He was moved out of the ICU today and stated that he found the unit busier and noisier than the ICU. CM had planned to complete Advanced Directives with Lester and his [place] (via Zoom) today however Lester requested that this be done via phone after discharge. He felt the constant interruptions would not be conducive to a productive conversation .CM agreed and will schedule a post-discharge appointment to do this with them. A: Lester is a 80 year old man admitted on 01/03/21 with pneumonia P:Lester will discharge home with no new services but will have a resumption of the caregivers that are hired privately for him. He will follow up with his PCP and discharge plan of care and transport with his . CM will continue to sup port Lester and his family and assess for discharge planning needs.
--- NOTE | 2021-01-07 23:23 | NUR.NOTE ---
Patient transferred from the ICU on 01/06/21 at 2245. He is alert, oriented x3. Lungs sound diminished throughout. HR regular. Pt denies having any pain at the time. No abvious cardio-pulmonary distress observed, but patient reported SOB with activities. Vital signs were charted. 2L oxygen was in progress Pt state he prefers sleeping in the recliner at the bedside and he was not interested in wearing the Bipap machine. Nonblanchable area noted to buttock sacral mepilex applied for prophylaxis.
[2021-01-07 23:36] VITALS: BP 173/75; PULSE 64; RESP 20; TEMP 36.4; O2SAT 99
[2021-01-08 07:00] LABS: Abs Immature Grans 0.02 10^3/uL (0.0-0.06); Absolute Basophil Count 0.04 10^3/uL (0.0-0.2); Absolute Eosinophil Count 0.08 10^3/uL (0.0-0.7); Absolute Lymphocyte Count 0.61 10^3/uL (1.2-3.4); Absolute Monocyte Count 0.48 10^3/uL (0.1-0.8); Absolute Neutrophil Count 2.95 10^3/uL (1.2-6.7); Eosinophils % 1.9; HCT 25.8 % (40.0-50.0); HGB 8.4 g/dL (13.5-17.5); Immature Grans % 0.5; Lymphocytes % 14.6; MCHC 32.6 % (32.0-36.0); MCV 113.7 fL (80-95); MPV 9.8 fL (8.0-11.0); Monocytes % 11.5; Neutrophils % 70.5; Nucleated RBC 0 %; Platelet Count 176 10^3/uL (130-400); RBC 2.27 10^6/uL (4.36-5.78); RDW 14.9 % (11.8-14.1); RDW-SD 62.3 fL; WBC 4.18 10^3/uL (4.4-10.8)
[2021-01-08 07:10] LABS: Anion Gap 2.7 mmol/L (3-11); BUN 20 mg/dL (7-18); CO2 34.3 mmol/L (21.0-32.0); CREATININE 1.1 mg/dL (0.70-1.30); Calcium 9.1 mg/dL (8.5-10.1); Chloride 106 mmol/L (98-107); Glucose 114 mg/dL (74-106); Potassium 4.6 mmol/L (3.5-5.1); Sodium 143 mmol/L (136-145)
[2021-01-08 07:18] LABS: Diff Comment Diff Reviewed
[2021-01-08 07:19] LABS: Anisocytosis 1+; Macrocytosis 3+; Polychromasia Present
[2021-01-08 08:06] VITALS: BP 180/68; PULSE 63; RESP 22; TEMP 36.8; O2SAT 99
[2021-01-08] MEDS: Fluticasone NASAL SPRAY 16 GM BTL NS (09:01)
[2021-01-08] MEDS: IRON SUCROSE COMPLEX 300 MG in Normal Saline 250 ML 167 MG IVPB (09:02)
[2021-01-08] MEDS: Multivitamin TAB 1 TAB PO (09:02)
[2021-01-08] MEDS: Gabapentin 400 MG CAP 800 MG PO (09:02)
[2021-01-08] MEDS: Calcium 600mg/Vit D 200U TAB 1 TAB PO (09:02)
[2021-01-08] MEDS: Metoprolol CR 100 MG TABCR PO (09:02)
[2021-01-08] MEDS: Pantoprazole 20 MG TABCR PO (09:02)
[2021-01-08] MEDS: Furosemide 40 MG TAB PO (09:02)
[2021-01-08] MEDS: Lisinopril 10 MG TAB PO (09:02)
[2021-01-08] MEDS: Acetaminophen 325 MG TAB PO (09:35)
[2021-01-08] MEDS: cefTRIAXone 2 GM/50 ML BAG IVPB (11:14)
[2021-01-08] MEDS: Ferrous Sulfate 325 MG TAB PO (11:15)
[2021-01-08] MEDS: Normal Saline Flush 10 ML SYR ×3 (11:16→13:09)
--- NOTE | 2021-01-08 14:04 | DSE_ITS ---
DS: Diagnosis Discharge Diagnosis (1) Sepsis: Status: Resolved Asessment and Plan: Patient presented to the hospital with acute kidney injury and altered mental status and developed hypotension on the first day of admission and required aggressive IV fluid hydration but did not require vasopressors. Mental status and kidney function improved with antibiotics and IV fluids. His sepsis is resolved. Blood cultures grew Streptococcus dysgalactiae responded to high-dose Rocephin 2 g daily. He was treated for total of 6 days but will continue Pen-Vee K 500 mg p.o. 4 times daily x7 more days. (2) Left lower lobe pneumonia: Status: Acute Asessment and Plan: Patient completed 6 days of high-dose Rocephin 2 g daily. He is to complete another 7 days of Pen-Vee K 500 mg p.o. 4 times daily. Follow-up chest x-ray in 2 weeks (3) Sleep apnea: Status: Suspected Asessment and Plan: Patient refused the use of CPAP while hospitalized. He has home oxygen that he wears at night for his hypoventilation syndrome and nocturnal hypoxemia. Currently he is down to 1.5 L/min at rest and 2 L with activity. (4) Hypoventilation associated with obesity: Status: Chronic (5) Chronic kidney disease, stage 3: Status: Chronic Asessment and Plan: At the time of discharge his BUN was down to 20 his creatinine 1.1. He should get a follow-up BMP in 2 weeks (6) Chronic diastolic heart failure: Status: Chronic Asessment and Plan: Patient was resumed on his Lasix and lisinopril. (7) DVT prophylaxis: Status: Resolved (8) Discharge planning issues: Status: Resolved Asessment and Plan: Patient is being discharged home with no new home health services but he will resume previous health care through private caregivers. (9) Deficiency anemia: Status: Acute Discharge Plan Disposition Patient Disposition: HOME Condition: Improving Discharge Details Reason For Visit: PNEUMONIA/ SEPSIS/ AMS Admit Date/Time: 01/03/21 15:06 Admit Provider: Festus Galarza Attending Provider: Festus Galarza Primary Care Provider: Tonny Leslie Hospital Course Hospital Course: 80-year-old male with a history of metastatic prostate cancer with bone mets who just received his second Covid vaccine on January 01, 2021 and presented to the emergency department on January 03, 2021 via EMS after the noticed that he had profound weakness and decreased mental status. On arrival to emergency department he was noted to be febrile at 39.4 unable to answer questions. Chest x-ray showed left lower lobe infiltrate. Blood cultures were obtained and he was started on ceftriaxone and azithromycin. Screening for Covid flu and RSV were negative. Initially he was admitted to the medical/surgical floor but when he developed hypotension he was transferred to the ICU for closer monitoring. He has a DNR/DNI status in terms of his CODE STATUS. Patient did well with IV fluids never required vasopressors. Azithromycin was discontinued after blood cultures grew group B strep (Streptococcus dysgalactiae) he was maintained on high-dose ceftriaxone 2 g IV daily through the day of his discharge. Patient's mental status cleared up overnight after aggressive IV fluids and antibiotics. He was still having fevers on January 04, 2021 up to 38.3 but by the evening on January 05, 2020 when he was afebrile and remained afebrile throughout the rest of his hospital course. He never did have a leukocytosis. White cell count on admission was 4920 upon discharge it was 4180. He has a stable chronic anemia with a hemoglobin of 9.7 g on admission and 8.4 g on discharge. Work-up revealed that he has an iron deficiency anemia and he was treated with venofer. In support of his diagnosis of sepsis in addition to the hypotension he had an acute kidney injury in which his creatinine was 1.8 on admission with a BUN of 33 and he had elevated procalcitonin level of 15.1. Repeat blood cultures were obtained on January 05 2021x2 sets and came back no growth at 48 hours. An MRSA screen was obtained and was negative. Patient continued to do well and was transferred out of the intensive care unit day on January 04, 2021. His sleep apnea was treated with CPAP but patient refused to wear this so he was kept on continuous oxygen. He was weaned down to his baseline nasal cannula at 1-1/2 L/min. IV fluids were discontinued and eventually he was resumed on his lisinopril and his diuretics. He finished out 6 days worth of ceftriaxone but was felt that he should continue on another week of oral antibiotics of Pen-Vee K 500 mg p.o. 4 times daily. Should get a follow-up chest x-ray in 2 weeks and because of the anemia he should get a follow-up CBC. He should keep his scheduled follow-up with Dr. Leslie January 19, 2021 at 11:40 AM. While he is still being treated for his infection he should remain off his Lynparza but should check with Dr. Branch when it safe to return to his Lynparza treatment of his prostate cancer. Home Meds and New Rx's Prescriptions: New penicillin V potassium 500 mg tablet 500 mg PO QID Qty: 28 RF: 0 Continued metoprolol succinate 100 MG tablet extended release 24 hr 100 mg PO DAILY RF: 0 Lupron Depot (4 month) 30 MG syringe kit 30 mg IM .Q4 months RF: 0 multivitamin tablet 1 tab PO DAILY RF: 0 fluticasone propionate 50 mcg/actuation spray,suspension 1 spray BRIAN DAILY RF: 0 Xgeva 120 mg/1.7 mL (70 mg/mL) solution 120 mg SC Q6W RF: 0 lisinopril 5 mg tablet 10 mg PO DAILY Qty: 2 RF: 0 gabapentin 300 mg capsule 800 mg PO BID RF: 0 zinc oxide 20 % Ointment 1 applic topical TID Qty: 30 RF: 0 clotrimazole 1 % Cream 1 applic topical TID Qty: 30 RF: 0 vits A and D-white pet-lanolin Ointment 1 applic topical TID Qty: 56 RF: 0 calcium carbonate-vitamin D3 [Calcium 600 + D(3)] 600 mg(1,500mg) -400 unit Tablet 1 tab PO DAILY RF: 0 furosemide 40 mg Tablet 40 mg PO BID@0830,1600 Qty: 14 RF: 0 fentanyl 50 mcg/hr patch 72 hour 25 mcg transdermal Q48H RF: 0 fentanyl 12 mcg/hr Patch 72 Hour 1 patch TRANSDERMAL Q48H RF: 0 Discharge Instructions Instructions: Sepsis (DC), Bacterial Pneumonia (DC), Bacteremia (DC) Additional Instructions: Finish all of your antibiotics (Penicillin V 500 mg 4x per day x 7days). Get follow up chest xray in 2 weeks. Do not restart your Lynparza until you check with Dr. Branch. Get a follow-up CBC in 2 weeks. Stand Alone Forms: Nursing Discharge Form Referrals: Min Washington [ NON-[facility] STAFF PHYSICIAN] - 01/26/21 2:00 pm () Tonny Leslie MD [Primary Care Provider] - 01/19/21 11:30 am Activity:: Activity as Tolerated Equipment/Supplies:: No Equipment Needed Diet:: Low Sodium Discharge Orders Discharge Orders: Discharge Order (Routine); Ordered 01/08/21 Ordered By: Festus Galarza Other Ambulatory Orders: Complete Blood Count w/Diff (Routine) Timeframe: 2 Weeks Facility: [facility] - Location: Laboratory Outpatient Ordered By: Festus Galarza XR chest 2V PA & lateral (Routine) Timeframe: 2 Weeks Facility: [facility] - Location: DIAGNOSTIC IMAGING DEPT Ordered By: Festus Galarza DS: Summary Time Spent with Patient providing and/or coordinating discharge services: Greater than 30 minutes Status at Discharge Functional status at discharge: uses cane/walker Overall status at discharge: patient is progressing back to baseline Mental Status: mental status grossly normal Speech and Movement: speech and movement normal Mood: congruent mood Affect: normal affect Exam Narrative Exam Narrative: Obese male sitting up in his chair watching TV. Currently on oxygen at 1.5 L/min per nasal cannula. Lungs are clear to auscultation anteriorly and posteriorly has some diminished breath sounds at the bases but no rhonchi or rales or wheezes. Heart is regular rate and rhythm no murmur rub or gallop. Abdomen obese soft and nontender. Psych Mental Status: mental status grossly normal Speech and Movement: speech and movement normal Mood: congruent mood Affect: normal affect DS: Data Vitals/I&O Vitals and I&O: Vital Signs Temperature 36.8 C 01/08/21 08:06 Temperature Source Tympanic 01/08/21 08:06 Pulse 63 01/08/21 08:06 Pulse Rhythm Regular 01/08/21 13:08 Pulse 68 01/05/21 18:34 Respiratory Rate 22 01/08/21 08:06 Respiratory Effort Non-Labored 01/08/21 13:08 Respiratory Depth Normal 01/08/21 13:08 Respiratory Pattern Normal 01/08/21 13:08 Blood Pressure 180/68 H 01/08/21 08:06 Blood Pressure Mean 71 01/06/21 19:17 Blood Pressure Position Supine 01/04/21 12:23 Pulse Oximetry 99 01/08/21 08:06 Oxygen Delivery Method Nasal Cannula 01/08/21 08:06 Oxygen Flow Rate 1.5 01/08/21 08:06 Fraction of Inspired Oxygen (FIO2) 30 01/05/21 08:50 Pain Level 0 01/08/21 08:06 Comment 01/07/21 23:36 Intake & Output 01/07/21 01/08/21 01/08/21 23:59 11:59 23:59 Intake Total 60 / 60 Output Total 100 / 100 150 / 150 Balance -100 / 140 -90 / -90 Weight 97.7 kg Intake: IV 60 / 60 Output: Urine 100 / 100 150 / 150 Other: Urine Color Yellow Yellow Yellow Urine Appearance Clear Clear Clear Urine Odor None Normal Comment pt got up and used the commode, but was also incontinent in his breif Stool Size Large Small Small Stool Characteristics Soft Soft Soft Brown Formed Brown Black Voiding Methods Bedside Commode Bedside Commode Bedside Commode Data Completed and Pending Labs on day of discharge: Labs from last 24 hours 01/08/21 01/08/21 06:40 06:40 WBC 4.18 L RBC 2.27 L Hgb 8.4 L Hct 25.8 L MCV 113.7 H MCH 37.0 H MCHC 32.6 RDW 14.9 H Plt Count 176 MPV 9.8 Immature Gran % 0.5 Neutrophils % 70.5 Lymphocytes % 14.6 Monocytes % 11.5 Eosinophils % 1.9 Basophils % 1.0 Nucleated RBC % 0 Absolute Neutrophils 2.95 Absolute Lymphocytes 0.61 L Absolute Monocytes 0.48 Absolute Eosinophils 0.08 Absolute Basophils 0.04 RBC Morphology See below Polychromasia Present Anisocytosis 1+ Macrocytosis 3+ Sodium 143 Potassium 4.6 Chloride 106 Carbon Dioxide 34.3 H Anion Gap 2.7 L BUN 20 H Creatinine 1.1 Estimated GFR/1.73 m2 >= 60.00 Glucose 114 H Calcium 9.1 Preliminary micro results at discharge 01/05/21 11:28 Blood Culture - Preliminary Blood NO GROWTH 48 HOURS 01/05/21 11:20 Blood Culture - Preliminary Blood NO GROWTH 48 HOURS [facility] Medical History (Updated 01/08/21 @ 14:09 by Festus Galarza) Acute alteration in mental status Acute congestive heart failure Acute on chronic diastolic CHF (congestive heart failure) Acute on chronic right-sided congestive heart failure AWILDA (acute kidney injury) Anemia Atelectasis Bacteremia due to Streptococcus Bone metastases Prostate ca Chronic diastolic heart failure Chronic kidney disease, stage 3 Chronic wound of extremity Decubital ulcer Deficiency anemia Edema Group G streptococcal infection Hx of acute renal failure Hypercapnic respiratory failure Hyperlipidemia Hypertension Hypoventilation associated with obesity Left foot infection Left foot pain Left rotator cuff tear Lichen sclerosus Memory loss Metastatic malignant neoplasm to prostate Mononeuropathy of left lower extremity Nocturnal hypoxia Nonsustained paroxysmal supraventricular tachycardia Obesity (BMI 30-39.9) Obstructive sleep apnea PAD (peripheral artery disease) Peripheral edema Peripheral neuropathy due to chemotherapy Physeal fracture of phalanx of toe of left foot Pneumonia Pneumonia Pressure ulcer Buttocks Pulmonary hypertension Respiratory failure with hypoxia and hypercapnia Sleep apnea TBI (traumatic brain injury) Toxic metabolic encephalopathy Family History Mother Lung cancer Social History Smoking/Tobacco Use Status: Never Smoking risk assessment performed?: Yes Alcohol Intake: current Alcohol Intake frequency: a few times a month Alcohol type: hard liquor Drug use: Never Substance use type: does not use Household members: spouse Number of Children: 2 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
--- NOTE | 2021-01-08 14:48 | PDOC.CMDIS ---
LACE Index Scoring Tool - Questions: Length of Stay (in days): 4 - 6 Acuity (Admit via E.D.?): Yes Comorbidities: Congestive Heart Failure, Any Tumor, Liver or Renal Disease E.D. Visits: 2 - Answers: Total Score: 14 Risk of Readmission: High Risk Care Management Discharge Reason for Hospitalization: LLL Pneumonia Discharge Plan: Lester will discharge home with no new services but will have a resumption of the caregivers that are hired privately for him. He will follow up with his PCP and discharge plan of care and transport via private vehicle with his . Patient/Family Education Needs: Review of discharge instructions, discuss Ask Me Three. Services Needed at Discharge: Home Health Care Services (Private insurance covered caregivers. )
--- NOTE | 2021-01-08 15:37 | PTTR_ITS ---
Date of service: 01/08/21 Time of Service: 09:30 PT Notes Visit Reasons: PNEUMONIA/ SEPSIS/ AMS Inpatient Physical Therapy Treatment Note [facility] Date: 01/08/2021 PRECAUTIONS: Fall SUBJECTIVE: Lester is pleasant and agreeable to participating in PT. He is excited that he will be going home today. OBJECTIVE: PAIN: No c/o pain BED MOBILITY/TRANSFERS Sit-stand: SBA Stand-sit: SBA GAIT Assistive Device: FWW Weight bearing: Full Assist: CGA Distance: 60' Deviation: Significant trunk flexion (baseline), decreased hip and knee flexion (baseline), leaning on forearms (baseline), wide MARNI (baseline) ASSESSMENT: Patient tolerated session with complaint of poor gait posture and mechanics due to FWW and not having his up-walker. He continues to demonstrate forward flexed trunk posture, wide MARNI, leaning on forearms, and decreased knee and hip flexion, which is his baseline. PLAN: Continue with global strengthening and continued gait for improved activ ity tolerance. TREATMENT CODE/TIME: 20 minutes; 56430 (09:30)
--- NOTE | 2021-01-12 09:23 | INDS_ITS ---
Date of service: 01/12/21 PT Notes Visit Reasons: PNEUMONIA/ SEPSIS/ AMS Physical Therapy Discharge Summary Date: 01/12/2021 Referring Doctor: Rian Olvera MD PT Orders: PT CONSULT: Exacerbation of Chronic Cond. Metastatic prostate ca w/right hip pain Precautions: Fall. Standard. Activity as tolerated. COVID-19 negative. Patient Profile/Admitting Diagnosis: Manjit is a 80-year-old male patient with past medical history significant for hypoventilation syndrome associated with obesity, bone metastasis and malignant neoplasm of prostate with bone metastases who presented to the ED on 01/03/2021 via EMS with altered mental status and fever. He is diagnosed with lower lobe pneumonia, altered mental status, acute on chronic diastolic congestive heart failure, and sepsis. PMHX: Medical History (Updated 01/03/21 @ 17:06 by Rian Olvera MD) Acute alteration in mental status Acute congestive heart failure Acute on chronic diastolic CHF (congestive heart failure) Acute on chronic right-sided congestive heart failure AWILDA (acute kidney injury) Anemia Atelectasis Bacteremia due to Streptococcus Bone metastases Prostate ca Chronic kidney disease, stage 3 Chronic wound of extremity Decubital ulcer Edema Group G streptococcal infection Hx of acute renal failure Hypercapnic respiratory failure Hyperlipidemia Hypertension Hypoventilation associated with obesity Left foot infection Left foot pain Left rotator cuff tear Lichen sclerosus Memory loss Metastatic malignant neoplasm to prostate Mononeuropathy of left lower extremity Nocturnal hypoxia Nonsustained paroxysmal supraventricular tachycardia Obesity (BMI 30-39.9) Obstructive sleep apnea PAD (peripheral artery disease) Peripheral edema Peripheral neuropathy due to chemotherapy Physeal fracture of phalanx of toe of left foot Pneumonia Pneumonia Pressure ulcer Buttocks Pulmonary hypertension Respiratory failure with hypoxia and hypercapnia Sleep apnea TBI (traumatic brain injury) Toxic metabolic encephalopathy Social History/Home Situation: Lester lives with in a private home in [place] with his Alva. They also have another person who boards at their house and is able to help with provision of care for patient for meals and platform material handling supervisor. provides assistance with morning care. Prior level of function is independent indoor and outdoor ambulation of about 50 feet using the front-wheeled walker. His peripheral neuropathy has placed limitations on all his mobility ADL performance. Equipment Owned/DME: Front-wheeled walker, transport wheelchair Subjective: NT. See most recent [facility] notes. Objective: General Observation: NT. See most recent [facility] notes. Mental Status: NT. See most recent [facility] notes. Pain: NT. See most recent [facility] notes. Vital Signs: NT. See most recent [facility] notes. ROM: Right Upper Extremity: Shoulder Flexion allows only up to 110 degrees. Shoulder abduction allows only up to 110 degrees. Elbow flexion WFL. Wrist flexion WFL. Opening and closing of hand WFL. Left Upper Extremity: Shoulder Flexion allows only up to 75 degrees. Shoulder abduction allows only up to 75 degrees. Elbow flexion WFL. Wrist flexion WFL. Opening and closing of hand WFL. Right Lower Extremity: Hip flexion WFL. Hip abduction WFL. Knee flexion WFL. Ankle dorsiflexion 5 to 10 degrees. Ankle plantarflexion WFL. Left Lower Extremity: Hip flexion WFL. Hip abduction WFL. Knee flexion WFL. Ankle dorsiflexion 5 to 10 degrees. Ankle plantarflexion WFL. Strength: Right Upper Extremity: Shoulder flexors 3-/5. Shoulder abductors 3-/5. Elbow flexors 5/5. Elbow extensors 5/5. Materials Handling Coordinator strong. Left Upper Extremity: Shoulder flexors 3-/5. Shoulder abductors 3-/5. Elbow flexors 5/5. Elbow extensors 5/5. Materials Handling Coordinator strong. Right Lower Extremity: Hip flexors 4/5. Hip abductors 4-/5. Knee flexors 5/5. Knee extensors 4-/5. Ankle dorsiflexors 2-/5. Ankle plantarflexors 3-/5. Left Lower Extremity:Hip flexors 4/5. Hip abductors 4-/5. Knee flexors 455. Knee extensors 4-/5. Ankle dorsiflexors 2-/5. Ankle plantarflexors 3-/5. Sensation: Intact as to pain and pressure on bilateral lower extremities. Bed Mobility/Transfers: Supine-sit: stand by assist Sit-supine: stand by assist Gait: 60 feet with FWW with full weight bearing with contact guard assist. Balance: Static Sitting: Normal Dynamic Sitting: Normal Static Standing: Fair Dynamic Standing: Fair Assessment: Manjit continues to present with significant functional mobility decline complicated by decreased level of lertness and confusion which limited today's mobility assessment. Will continue to assess transfer and ambulation task skills once safety level and cognition is improved. Patient continues to present with clinical signs and symptoms consistent with current/admitting diagnoses that have resulted to mobility limitations, gait instability, generalized weakness, and impairment of motor control as demonstrated by the following impairment level findings: 1. Decreased awareness due to lethargy 2. Disoriented as to date, place, and purpose 3. Chronic ROM limitations on B shoulders 4. Pain in L hip 5. Intentional tremors 6. Decreased static/dynamic standing/sitting balance/tolerance Impairments are continuing to contribute to the following functional limitations: 1. Inability to ambulate 2. Increase completion time for mobility ADL performance 3. Increased fall risk 4. Increased dependence with bed mobility 5. Inability to transfer Goals: Goals X1 week 1. Supine-Sit stand by guard assist MET 2. Sit-Supine stand by guard assist MET 3. Sit-Stand contact guard assist NOT MET 4. Stand-Sit contact guard assist NOT MET 5. Bed-Chair contact guard assist NOT MET 6. Chair-Bed contact guard assist NOT MET 7. Minimal assist with gait on level surface with use of least restrictive device for at least 300 feet without report of pain nor dyspnea NOT MET 9. MInimal assist with home exercise program NOT MET 10. Fair static and dynamic standing balance/tolerance NOT MET DISCHARGE RECOMMENDATIONS: PT TREATMENT CODE/TIME: UT Thank you very much for this referral. Liliane Morales PT, DPT, CLT [facility] [place], [place]
== END 2021-01-08 14:21 | disposition home or self-care (01) | DRG 871 ==
LOC: ER 15:14 → ICU 17:15 → MS 01-06 22:57
PROVIDERS: Family Medicine; General Practice; Admitting Provider Internal Medicine; Emergency Provider Physician Assistant; PCP Internal Medicine; Visit Provider Internal Medicine
DX: A40.9 Streptococcal sepsis, unspecified (principal); G93.41 Metabolic encephalopathy; J18.9 Pneumonia, unspecified organism; J96.01 Acute respiratory failure with hypoxia; C79.51 Secondary malignant neoplasm of bone; I13.0 Hypertensive heart and chronic kidney disease with heart failure and stage 1 through stage 4 chronic kidney disease, or unspecified chronic kidney disease; I47.1 Supraventricular tachycardia; E66.2 Morbid (severe) obesity with alveolar hypoventilation; I50.32 Chronic diastolic (congestive) heart failure; R65.20 Severe sepsis without septic shock; Z20.822 Contact with and (suspected) exposure to COVID-19; R06.89 Other abnormalities of breathing; C61 Malignant neoplasm of prostate; Z66 Do not resuscitate; D64.9 Anemia, unspecified; E78.5 Hyperlipidemia, unspecified; N18.30 Chronic kidney disease, stage 3 unspecified; R41.3 Other amnesia; I73.9 Peripheral vascular disease, unspecified; G62.2 Polyneuropathy due to other toxic agents; T45.1X5A Adverse effect of antineoplastic and immunosuppressive drugs, initial encounter; I27.20 Pulmonary hypertension, unspecified; D75.82 Heparin induced thrombocytopenia (HIT); T45.515A Adverse effect of anticoagulants, initial encounter; Y92.230 Patient room in hospital as the place of occurrence of the external cause; Z68.32 Body mass index [BMI] 32.0-32.9, adult
CPT/HCPCS: 36415; 80048; 80053; 82805; 84145; 86022; 87040; 87077; 87081; 87637; 93005; 96361; 96365; 96367; 97110; 97163; 97530; 99223; 99232; 99233; 99239; 99291; J1650; 36600; 70450; 71045; 81003; 82272; 82607; 82728; 82746; 83540; 83550; 83605; 83615; 83735; 83880; 84484; 85025; 85045; 85610; 85730; 87186; 93010; 94660; 94667; J0131; J0456; J1756

== ENCOUNTER 2021-01-19 13:19 | Outpatient (REF) | payer MEDICARE, SELFPAY ==
[2021-01-19 21:51] LABS: Abs Immature Grans 0.01 10^3/uL (0.0-0.06); Absolute Basophil Count 0.02 10^3/uL (0.0-0.2); Absolute Eosinophil Count 0.05 10^3/uL (0.0-0.7); Absolute Lymphocyte Count 0.92 10^3/uL (1.2-3.4); Absolute Monocyte Count 0.48 10^3/uL (0.1-0.8); Absolute Neutrophil Count 2.34 10^3/uL (1.2-6.7); Basophils % 0.5; Eosinophils % 1.3; HCT 31.1 % (40.0-50.0); HGB 9.6 g/dL (13.5-17.5); Immature Grans % 0.3; Lymphocytes % 24.1; MCH 35.8 pg (27.0-33.0); MCHC 30.9 % (32.0-36.0); MPV 9.7 fL (8.0-11.0); Monocytes % 12.6; Neutrophils % 61.2; Nucleated RBC 0 %; RBC 2.68 10^6/uL (4.36-5.78); RDW 14.9 % (11.8-14.1); RDW-SD 63.9 fL; WBC 3.82 10^3/uL (4.4-10.8)
[2021-01-19 21:58] LABS: ALT 22 U/L (16-63); AST 24 U/L (15-37); Albumin 3.1 g/dL (3.4-5.0); Alkaline Phosphatase 102 U/L (46-116); Anion Gap 4.5 mmol/L (3-11); BUN 26 mg/dL (7-18); Bilirubin, Total 0.3 mg/dL (0.2-1.0); CO2 36.5 mmol/L (21.0-32.0); CREATININE 1.1 mg/dL (0.70-1.30); Calcium 9.8 mg/dL (8.5-10.1); Chloride 104 mmol/L (98-107); Glucose 106 mg/dL (74-106); Potassium 4.9 mmol/L (3.5-5.1); Sodium 145 mmol/L (136-145); Total Protein 6.3 g/dL (6.4-8.2)
[2021-01-19 22:15] LABS: Anisocytosis 3+; Diff Comment RBC Morph Reviewed; Macrocytosis 3+
[2021-01-19 22:17] LABS: Platelet Count 320 10^3/uL (130-400)
== END 2021-01-19 13:20 | disposition home or self-care (01) ==
LOC: NCHCN 13:19
PROVIDERS: PCP Internal Medicine; Visit Provider Internal Medicine
DX: D63.0 Anemia in neoplastic disease (principal); N18.30 Chronic kidney disease, stage 3 unspecified; C79.51 Secondary malignant neoplasm of bone
CPT/HCPCS: 80053; 85025

== ENCOUNTER 2021-02-05 03:48 | Outpatient (CLI) | payer MEDICARE, SELFPAY ==
--- NOTE | 2021-02-05 07:15 | DI.RAD_ITS ---
EXAM: XR CHEST 2V PA LATERAL CLINICAL HISTORY: Follow-up of pneumonia TECHNIQUE: 2D digital imaging was performed. COMPARISON: No exams were available for comparison FINDINGS: MEDIASTINUM: Normal. HEART: Normal. PULMONARY VASCULATURE: Normal. LUNGS: There is again seen a left basilar infiltrate. There is a persistent left pleural effusion. No new infiltrates are seen. PLEURAL SPACE: Stable left pleural effusion. BONE:There are diffuse sclerotic metastases. OTHER FINDINGS:Normal. IMPRESSION: Persistent left basilar infiltrate and left pleural effusion. DATA REPOSITORY: RADIATION DOSE DELIVERED:
== END 2021-02-05 04:08 ==
PROVIDERS: PCP Internal Medicine; Visit Provider Internal Medicine
DX: R91.8 Other nonspecific abnormal finding of lung field (principal); J90 Pleural effusion, not elsewhere classified
CPT/HCPCS: 71046

== ENCOUNTER 2021-03-04 17:00 | Outpatient (REF) | payer MEDICARE, SELFPAY ==
[2021-03-04 21:08] LABS: Abs Immature Grans 0.01 10^3/uL (0.0-0.06); Absolute Basophil Count 0.03 10^3/uL (0.0-0.2); Absolute Eosinophil Count 0.04 10^3/uL (0.0-0.7); Absolute Lymphocyte Count 0.81 10^3/uL (1.2-3.4); Absolute Monocyte Count 0.52 10^3/uL (0.1-0.8); Basophils % 0.8; HCT 29.7 % (40.0-50.0); HGB 9.3 g/dL (13.5-17.5); Immature Grans % 0.3; Lymphocytes % 20.7; MCH 35.1 pg (27.0-33.0); MCHC 31.3 % (32.0-36.0); MCV 112.1 fL (80-95); MPV 9.9 fL (8.0-11.0); Monocytes % 13.3; Neutrophils % 63.9; Nucleated RBC 0 %; Platelet Count 204 10^3/uL (130-400); RBC 2.65 10^6/uL (4.36-5.78); RDW 15.7 % (11.8-14.1); RDW-SD 65.1 fL; WBC 3.91 10^3/uL (4.4-10.8)
[2021-03-04 21:23] LABS: ALT 18 U/L (16-63); AST 33 U/L (15-37); Albumin 3.2 g/dL (3.4-5.0); Alkaline Phosphatase 110 U/L (46-116); Anion Gap 2.2 mmol/L (3-11); BUN 46 mg/dL (7-18); Bilirubin, Total 0.2 mg/dL (0.2-1.0); CO2 35.8 mmol/L (21.0-32.0); Calcium 9.1 mg/dL (8.5-10.1); Chloride 109 mmol/L (98-107); Estimated GFR 32.39 (mL/min/1.73m2); Glucose 128 mg/dL (74-106); Potassium 4.7 mmol/L (3.5-5.1); Sodium 147 mmol/L (136-145); Total Protein 6.3 g/dL (6.4-8.2)
[2021-03-04 21:57] LABS: Anisocytosis 2+; Diff Comment RBC Morph Reviewed; Macrocytosis 3+
[2021-03-05 17:10] LABS: PSA, Diagnostic 8.2 ng/mL (0.0-6.5)
== END 2021-03-04 17:01 | disposition home or self-care (01) ==
LOC: NCHCN 17:00
PROVIDERS: PCP Internal Medicine; Visit Provider Internal Medicine
DX: C79.51 Secondary malignant neoplasm of bone (principal); C61 Malignant neoplasm of prostate
CPT/HCPCS: 80053; 84402; 84403; 84153; 85025

== ENCOUNTER 2021-03-10 09:47 | Outpatient (REF) | payer MEDICARE, SELFPAY | END 2021-03-10 09:48 | disposition home or self-care (01) | LOC: NCHCN 09:47 | PROVIDERS: PCP Internal Medicine; Visit Provider Internal Medicine | DX: R30.0 Dysuria (principal) | CPT/HCPCS: 87086 ==

== ENCOUNTER 2021-03-22 11:15 | Outpatient (CLI) | payer MEDICARE, SELFPAY ==
--- NOTE | 2021-03-22 13:05 | DI.RAD_ITS ---
Exam(s) XR ABDOMEN FLAT UPRIGHT EXAM: XR ABDOMEN FLAT UPRIGHT CLINICAL HISTORY: TECHNIQUE: 2D digital imaging was performed. COMPARISON: No exams were available for comparison FINDINGS: Supine and upright views of the abdomen reveal a left pleural effusion. Also appears to be nodule in the right lung base. Multiple blastic osseous lesions are seen throughout all of the bones the pelv is hips visualized spinal column. Also in the ribs. There is a large concentric calcification over the upper left iliac crest region which measures 4.8 x 4.3 cm. This is probable in the iliac crest. The bowel gas pattern is nonspecific. There is no obvious bowel obstruction. No free air evident. No obvious calcifications seen of the kidney on the right side nor along the course of the ureter. T here is a 2 millimeter calcific density on the left side projected over the medial aspect 12 3 above. This is possibly related to the left kidney. In addition, there is a calcific density measuring 6 x 7 millimeters on the left side at L2 level. This appears somewhat rounder than typical ureteral ca lculus but correlation the clinical findings recommended. IMPRESSION: Nonspecific bowel gas pattern. No obvious bowel obstruction or free air. Extensive blastic metastatic osseous disease. Left pleural effusion and infiltrate in the left lung base. Other findings as above. DATA REPOSITORY: RADIATION DOSE DELIVERED:
== END 2021-03-22 11:35 ==
PROVIDERS: PCP Internal Medicine; Visit Provider Internal Medicine
DX: K59.00 Constipation, unspecified (principal); J90 Pleural effusion, not elsewhere classified; R91.1 Solitary pulmonary nodule; C79.51 Secondary malignant neoplasm of bone
CPT/HCPCS: 74019

== ENCOUNTER 2021-04-15 09:43 | Outpatient (REF) | payer MEDICARE, SELFPAY ==
[2021-04-15 14:28] LABS: Abs Immature Grans 0.02 10^3/uL (0.0-0.06); Absolute Basophil Count 0.01 10^3/uL (0.0-0.2); Absolute Eosinophil Count 0.08 10^3/uL (0.0-0.7); Absolute Lymphocyte Count 0.59 10^3/uL (1.2-3.4); Absolute Monocyte Count 0.57 10^3/uL (0.1-0.8); Absolute Neutrophil Count 4.73 10^3/uL (1.2-6.7); Basophils % 0.2; Eosinophils % 1.3; HCT 31.5 % (40.0-50.0); HGB 9.7 g/dL (13.5-17.5); Immature Grans % 0.3; Lymphocytes % 9.8; MCHC 30.8 % (32.0-36.0); MCV 107.1 fL (80-95); MPV 9.3 fL (8.0-11.0); Monocytes % 9.5; Neutrophils % 78.9; Nucleated RBC 0 %; Platelet Count 374 10^3/uL (130-400); RBC 2.94 10^6/uL (4.36-5.78); RDW 15.5 % (11.8-14.1); RDW-SD 61.9 fL
[2021-04-15 14:39] LABS: ALT 16 U/L (16-63); AST 49 U/L (15-37); Albumin 2.9 g/dL (3.4-5.0); Alkaline Phosphatase 144 U/L (46-116); Anion Gap 6.4 mmol/L (3-11); BUN 42 mg/dL (7-18); Bilirubin, Total 0.2 mg/dL (0.2-1.0); CO2 34.6 mmol/L (21.0-32.0); CREATININE 1.8 mg/dL (0.70-1.30); Calcium 8.9 mg/dL (8.5-10.1); Chloride 103 mmol/L (98-107); Diff Comment Diff Reviewed; Estimated GFR 36.58 (mL/min/1.73m2); Glucose 125 mg/dL (74-106); Macrocytosis 3+; Potassium 5.1 mmol/L (3.5-5.1); Sodium 144 mmol/L (136-145); Total Protein 6.4 g/dL (6.4-8.2)
[2021-04-15 22:34] LABS: PSA, Diagnostic 13.3 ng/mL (0.0-6.5)
[2021-04-17 12:03] LABS: PSA, Ultrasensitive 20.3 ng/mL (<= 6.5)
[2021-04-20 15:32] LABS: Testosterone, Free 0.22 ng/dL (3.08-11.3); Testosterone, Total 7.2 ng/dL (240-950)
== END 2021-04-15 09:44 | disposition home or self-care (01) ==
LOC: NCHCN 09:43
PROVIDERS: Internal Medicine; PCP Internal Medicine; Visit Provider Internal Medicine
DX: D63.0 Anemia in neoplastic disease (principal); C79.51 Secondary malignant neoplasm of bone; C61 Malignant neoplasm of prostate
CPT/HCPCS: 80053; 84153; 84402; 84403; 85025

== ENCOUNTER 2021-04-26 11:13 | Inpatient (IN) | payer MEDICARE, SELFPAY ==
[2021-04-26] VITALS (8 sets, daily range): BP systolic 85–112; BP diastolic 40–79; PULSE 78–97; RESP 11–22; TEMP 36.8; O2SAT 97–99
--- NOTE | 2021-04-26 11:20 | ED.GENADUL_ITS ---
Discharge Plan Disposition Patient Disposition: [facility] INPATIENT Condition: Critical Discharge Details Clinical Impression: Acute kidney failure, Altered mental status, Comfort measures only status Admit Date/Time: 04/26/21 12:13 Admit Provider: Rusty Negrete Attending Provider: Rusty Negrete Primary Care Provider: Tonny Leslie ED Provider: Bethanie Houston Discharge Data Discharge Date/Time-TO BE ENTERED AT DEPARTURE: 04/26/21 13:11 Medical Decision Making 80-year-old male with a history of metastatic prostate cancer to bone with chronic hip and back pain, CHF, CKD, and obesity presents from home for altered mental status for the past few days with concern for UTI per . EMS noted the lowest blood pressure of 84/47. Blood pressure on arrival 85/66. Patient is oriented x2 and pleasantly confused. He has a sacrum stage I and II ulcer which does not appear to be an acute source of cellulitis. He has a chronic appearing right leg wound without acute evidence of infection. His lungs are clear with normal oxygen saturation and abdomen soft and nontender. He has reproducible right hip pain. No orthopedic deformity. No obvious focal deficits. Screening labs obtained on arrival. Straight cath urine sample obtained and does not appear obviously consistent with UTI. IV fluids started for hypotension. CT head, chest abdomen pelvis ordered. IV Tylenol ordered initially due to hypotension but if improves, will give IV narcotics. Case discussed with Dr. Perez who is well familiar with patient and who saw him for recent palliative care consult and there was discussion of potentially starting hospice. Review of labs note a BUN of 124 and creatinine of 7.7 which may be accounting for patient's altered mental status. Case discussed with over the phone and she agrees she is likely wanting to keep patient comfortable and agrees with canceling imaging studies at this time. Dr. Perez will see patient in the hospital. Case discussed with hospitalist who accepts patient for admission. Medical Records Medical records reviewed: Yes I reviewed the patient's medical records. Lab Data Lab results reviewed: Yes I reviewed the patient's lab results. Labs: Laboratory Tests Range/Units 04/26/21 04/26/21 04/26/21 11:25 11:30 11:30 WBC (4.4-10.8) 10^3/uL 11.50 H RBC (4.36-5.78) 10^6/uL 2.89 L Hgb (13.5-17.5) g/dL 9.5 L Hct (40.0-50.0) % 30.7 L MCV (80-95) fL 106.2 H MCH (27.0-33.0) pg 32.9 MCHC (32.0-36.0) % 30.9 L RDW (11.8-14.1) % 16.6 H Plt Count (130-400) 10^3/uL 338 MPV (8.0-11.0) fL 9.2 Immature Gran % 0.0 Neutrophils % 78.0 Band Neutrophils % 3 Lymphocytes % 13.0 Monocytes % 6.0 Eosinophils % 0.0 Basophils % 0.0 Nucleated RBC % % 0 Absolute Neutrophils (1.2-6.7) 10^3/uL 9.32 H Absolute Lymphocytes (1.2-3.4) 10^3/uL 1.50 Absolute Monocytes (0.1-0.8) 10^3/uL 0.69 Absolute Eosinophils (0.0-0.7) 10^3/uL 0.00 Absolute Basophils (0.0-0.2) 10^3/uL 0.00 RBC Morphology See Below Macrocytosis 2+ VBG Lactate (0.6-1.4) mmol/L Sodium (136-145) mmol/L 147 H Potassium (3.5-5.1) mmol/L 4.8 Chloride (98-107) mmol/L 106 Carbon Dioxide (21.0-32.0) mmol/L 23.8 Anion Gap (3-11) mmol/L 17.2 H BUN (7-18) mg/dL 124 H* Creatinine (0.70-1.30) mg/dL 7.7 H* Estimated GFR/1.73 m2 (mL/min/1.73m2) 6.84 Glucose (74-106) mg/dL 151 H Calcium (8.5-10.1) mg/dL 7.8 L Magnesium (1.8-2.4) mg/dL 3.0 H Total Bilirubin (0.2-1.0) mg/dL 0.3 AST (15-37) U/L 62 H ALT (16-63) U/L 17 Alkaline Phosphatase (46-116) U/L 164 H Total Protein (6.4-8.2) g/dL 6.8 Albumin (3.4-5.0) g/dL 2.4 L Urine Color (Yellow) Dark Yellow Urine Clarity (Clear) Clear Urine pH (5-8) 5.0 Ur Specific [place] (1.005-1.025) 1.025 Urine Protein (Negative) mg/dL 30 H Urine Ketones (Negative) mg/dL Negative Urine Blood (Negative) Trace-intact H Urine Nitrite (Negative) Negative Urine Bilirubin (Negative) Negative Urine Urobilinogen (Up TO 0.2) EU/dL 0.2 Ur Leukocyte Esterase (Negative) Negative Urine RBC (0-2) HPF 5-10 H Urine WBC (0-5) HPF Negative Ur Epithelial Cells (Negative) HPF Few Urine Crystals (Negative) HPF Moderate Amorphous Urine Bacteria (Negative) HPF Negative Urine Casts (Negative) LPF 0-2 Fine Granular Urine Mucus (Negative) Negative Ur Culture Indicated? No Urine Glucose (Negative) mg/dL Negative Range/Units 04/26/21 11:30 WBC (4.4-10.8) 10^3/uL RBC (4.36-5.78) 10^6/uL Hgb (13.5-17.5) g/dL Hct (40.0-50.0) % MCV (80-95) fL MCH (27.0-33.0) pg MCHC (32.0-36.0) % RDW (11.8-14.1) % Plt Count (130-400) 10^3/uL MPV (8.0-11.0) fL Immature Gran % Neutrophils % Band Neutrophils % Lymphocytes % Monocytes % Eosinophils % Basophils % Nucleated RBC % % Absolute Neutrophils (1.2-6.7) 10^3/uL Absolute Lymphocytes (1.2-3.4) 10^3/uL Absolute Monocytes (0.1-0.8) 10^3/uL Absolute Eosinophils (0.0-0.7) 10^3/uL Absolute Basophils (0.0-0.2) 10^3/uL RBC Morphology Macrocytosis VBG Lactate (0.6-1.4) mmol/L 1.5 H Sodium (136-145) mmol/L Potassium (3.5-5.1) mmol/L Chloride (98-107) mmol/L Carbon Dioxide (21.0-32.0) mmol/L Anion Gap (3-11) mmol/L BUN (7-18) mg/dL Creatinine (0.70-1.30) mg/dL Estimated GFR/1.73 m2 (mL/min/1.73m2) Glucose (74-106) mg/dL Calcium (8.5-10.1) mg/dL Magnesium (1.8-2.4) mg/dL Total Bilirubin (0.2-1.0) mg/dL AST (15-37) U/L ALT (16-63) U/L Alkaline Phosphatase (46-116) U/L Total Protein (6.4-8.2) g/dL Albumin (3.4-5.0) g/dL Urine Color (Yellow) Urine Clarity (Clear) Urine pH (5-8) Ur Specific [place] (1.005-1.025) Urine Protein (Negative) mg/dL Urine Ketones (Negative) mg/dL Urine Blood (Negative) Urine Nitrite (Negative) Urine Bilirubin (Negative) Urine Urobilinogen (Up TO 0.2) EU/dL Ur Leukocyte Esterase (Negative) Urine RBC (0-2) HPF Urine WBC (0-5) HPF Ur Epithelial Cells (Negative) HPF Urine Crystals (Negative) HPF Urine Bacteria (Negative) HPF Urine Casts (Negative) LPF Urine Mucus (Negative) Ur Culture Indicated? Urine Glucose (Negative) mg/dL HPI General Mode of arrival: EMS . Date/Time Provider Initiated Documentation: 04/26/21 11:19 . Limitations to Documentation: altered mental status and physical limitation . Information obtained by: patient, family and EMS . HPI Narrative: Patient is a 80-year-old male with a history of metastatic prostate cancer, CHF, chronic kidney disease, obesity presents from home for altered mental status with concern for UTI. Per EMS, called the ambulance for altered mental status for the past few days and stated she was worried about a UTI. She noted that they are in the process of potentially starting half. EMS noted that patient had been thrashing on the stretcher and complaining of pain in both of his hips which is chronic but now worse on the right side. EMS noted that patient was due for a new fentanyl patch today but this was not yet changed. Related Data Home Medications Medication Instructions Recorded Confirmed Lupron Depot (4 month) 30 mg IM .Q4 months 09/25/17 04/26/21 denosumab 120 mg/1.7 mL (70 mg/mL) 120 mg SC Q6W 12/10/18 04/26/21 subcutaneous solution lisinopril 5 mg tablet 10 mg PO DAILY #2 tab-cap 12/10/18 04/26/21 multivitamin 1 tab PO DAILY 12/10/18 04/26/21 clotrimazole 1 applic TOPICAL TID #30 gm 09/15/19 04/26/21 vits A and D-white pet-lanolin 1 applic TOPICAL TID #56 gm 09/15/19 04/26/21 zinc oxide 1 applic TOPICAL TID #30 gm 09/15/19 04/26/21 fentanyl 1 patch TRANSDERMAL Q48H 01/03/21 04/26/21 fentanyl 25 mcg/hr transdermal 25 mcg TRANSDERMAL Q48H #5 ea MDD 04/14/21 04/26/21 patch 37 gabapentin 400 mg capsule 400 mg PO TID #3 tab-cap 04/14/21 04/26/21 ibuprofen 600 mg tablet 600 mg PO TID #90 tab 04/15/21 04/26/21 omeprazole 20 mg capsule,delayed 20 mg PO DAILY #90 cap 04/15/21 04/26/21 release acetaminophen [Acetaminophen Extra 1,000 mg PO TID 04/26/21 04/26/21 Strength] furosemide 40 mg PO DAILY 04/26/21 04/26/21 morphine 30 mg PO BID 04/26/21 04/26/21 polyethylene glycol 3350 [GlycoLax] 17 g PO DAILY PRN 04/26/21 04/26/21 Previous Rx's Medication Instructions Recorded clotrimazole 1 applic TOPICAL TID #30 gm 09/15/19 vits A and D-white pet-lanolin 1 applic TOPICAL TID #56 gm 09/15/19 zinc oxide 1 applic TOPICAL TID #30 gm 09/15/19 fentanyl 25 mcg/hr transdermal 25 mcg TRANSDERMAL Q48H #5 ea MDD 04/14/21 patch 37 gabapentin 400 mg capsule 400 mg PO TID #3 tab-cap 04/14/21 ibuprofen 600 mg tablet 600 mg PO TID #90 tab 04/15/21 omeprazole 20 mg capsule,delayed 20 mg PO DAILY #90 cap 04/15/21 release Allergies Allergy/AdvReac Type Severity Reaction Status Date / Time No Known Drug Allergies Allergy Unverified 04/26/21 11:41 General BENNY: 2 Review of Systems All systems reviewed & are unremarkable except as noted in HPI and below Constitutional Constitutional: Reports as per HPI, Denies chills and Denies fever(s) Eyes Eyes: Denies blurry vision ENT Ears, Nose, Mouth, and Throat: Denies dizziness, Denies sore throat and Denies throat swelling Cardiovascular Cardiovascular: Denies chest pain and Denies dyspnea Respiratory Respiratory: Denies cough and Denies dyspnea Gastrointestinal Gastrointestinal: Denies abdominal pain, Denies diarrhea and Denies vomiting Genitourinary Genitourinary: Denies hematuria and Denies dysuria Musculoskeletal Musculoskeletal: Reports back pain, Reports arthralgias (R hip pain) and Denies numbness Integumentary/Breasts Skin/Breast: Denies lesions and Denies rash Neurologic Neurologic: Denies dizziness, Denies localized weakness and Denies numbness Allergic/Immunologic Allergic/Immunologic: Denies throat swelling [facility] Medical History Acute alteration in mental status Acute congestive heart failure Acute on chronic diastolic CHF (congestive heart failure) Acute on chronic right-sided congestive heart failure AWILDA (acute kidney injury) Anemia Atelectasis Bacteremia due to Streptococcus Bone metastases Prostate ca Chronic diastolic heart failure Chronic kidney disease, stage 3 Chronic wound of extremity Decubital ulcer Deficiency anemia Edema Group G streptococcal infection Hx of acute renal failure Hypercapnic respiratory failure Hyperlipidemia Hypertension Hypoventilation associated with obesity Left foot infection Left foot pain Left rotator cuff tear Lichen sclerosus Memory loss Metastatic malignant neoplasm to prostate Mononeuropathy of left lower extremity Nocturnal hypoxia Nonsustained paroxysmal supraventricular tachycardia Obesity (BMI 30-39.9) Obstructive sleep apnea PAD (peripheral artery disease) Peripheral edema Peripheral neuropathy due to chemotherapy Physeal fracture of phalanx of toe of left foot Pneumonia Pneumonia Pressure ulcer Buttocks Pulmonary hypertension Respiratory failure with hypoxia and hypercapnia Sleep apnea TBI (traumatic brain injury) Toxic metabolic encephalopathy Family History Mother Lung cancer Social History Smoking/Tobacco Use Status: Never Smoking risk assessment performed?: Yes Alcohol Intake: current Alcohol Intake frequency: a few times a month Alcohol type: hard liquor Drug use: Never Substance use type: does not use Household members: spouse Number of Children: 2 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; [employer]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 Do you feel safe at home: Yes (unable to answer) Do you feel safe in your relationship?: Yes Additional Social history: Moved from [place] to [place] in 2017 to be cared for by ( x10 years previously) Exam Const General: cooperative and no acute distress HENMT Head: normal to inspection Face and sinus: normal facial exam Eyes General: appearance normal, both eyes and all related structures EOM: EOM intact bilaterally Neck Neck: normal visual inspection and No submandibular swelling Lymphatic: no lymphadenopathy noted Chest Chest: normal inspection of the chest and no tenderness Resp Effort & Inspection: normal respiratory effort and able to speak in complete s entences Auscultation: clear to auscultation bilaterally Cardio Rate: regular rate Rhythm: regular rhythm GI Inspection: normal to inspection Palpation: soft, not firm, not rigid and nontender Auscultation: normal bowel sounds Male General Exam: Yes normal external exam Back/Spine/Pelvis Thoracic/Lumbar Spine: thoracic and lumbar spine normal to inspection Pelvis: no pain with anterior-posterior compression Sacrum: erythema (minimal, mostly pink) midline, tenderness midline and other (stage 1 and 2 ulcers, pink tissue, no drainage) Skin General skin exam: no rashes or lesions noted Neuro General: patient alert, patient awake, oriented Patient Orientation: Person, Place and Confused (Pleasantly), moves all extremities, no meningeal signs and no focal motor deficits Cognition: normal cognition Speech: speech normal Sensory Exam: no sensory deficits noted Extrem Other: Pain in right hip with passive and active range of motion. There is no overlying cellulitis or trauma. There is no deformity. No leg shortening noted. Right distal lateral leg wound with pink granulation tissue with healing erosions. No obvious cellulitis Psych Appearance: grossly normal Mental Status: mental status grossly normal Speech and Movement: speech and movement normal Affect: normal affect Critical Care Time Critical Care Time Critical Care Time: Yes Total Critical Care Time: 30
[2021-04-26] MEDS: Lidocaine 2% Jelly 6 ML SYR (11:25)
[2021-04-26] MEDS: Normal Saline Flush 10 ML SYR IVP (11:25)
[2021-04-26 11:40] LABS: Bilirubin Negative (Negative); Blood Trace-intact (Negative); Clarity Clear (Clear); Glucose Negative (Negative); Ketones Negative (Negative); Leukocyte Esterase Negative (Negative); Nitrite Negative (Negative); Specific Gravity 1.025 (1.005-1.025); Urobilinogen 0.2 EU/dL (Up TO 0.2)
[2021-04-26 11:53] LABS: Bacteria Negative HPF (Negative); Crystals Moderate Amorphous HPF (Negative); Epithelial Cells Few HPF (Negative); Mucus Negative (Negative); WBC Negative HPF (0-5)
[2021-04-26 11:54] LABS: C & S Indicated? No; Casts 0-2 Fine Granular LPF (Negative)
[2021-04-26 11:56] LABS: HCT 30.7 % (40.0-50.0); HGB 9.5 g/dL (13.5-17.5); Lactate 1.5 mmol/L (0.6-1.4); MCH 32.9 pg (27.0-33.0); MCHC 30.9 % (32.0-36.0); MCV 106.2 fL (80-95); MPV 9.2 fL (8.0-11.0); Nucleated RBC 0 %; Platelet Count 338 10^3/uL (130-400); RBC 2.89 10^6/uL (4.36-5.78); RDW 16.6 % (11.8-14.1); RDW-SD 65.4 fL
[2021-04-26] MEDS: Normal Saline 500 ML IV (12:00)
[2021-04-26 12:11] LABS: ALT 17 U/L (16-63); AST 62 U/L (15-37); Absolute Neutrophil Count 9.32 10^3/uL (1.2-6.7); Albumin 2.4 g/dL (3.4-5.0); Alkaline Phosphatase 164 U/L (46-116); Anion Gap 17.2 mmol/L (3-11); Bands % 3; Bilirubin, Total 0.3 mg/dL (0.2-1.0); CO2 23.8 mmol/L (21.0-32.0); Calcium 7.8 mg/dL (8.5-10.1); Chloride 106 mmol/L (98-107); Estimated GFR 6.84 (mL/min/1.73m2); Glucose 151 mg/dL (74-106); Potassium 4.8 mmol/L (3.5-5.1); Sodium 147 mmol/L (136-145); Total Protein 6.8 g/dL (6.4-8.2)
[2021-04-26 12:12] LABS: Absolute Monocyte Count 0.69 10^3/uL (0.1-0.8); Diff Comment Manual Differential; Macrocytosis 2+
[2021-04-26 12:14] LABS: BUN 124 mg/dL (7-18)
[2021-04-26 12:15] LABS: CREATININE 7.7 mg/dL (0.70-1.30)
[2021-04-26] MEDS: ACETAMINOPHEN 1,000 MG/100 ML BTL 400 MG IVPB (12:52)
[2021-04-26 12:58] LABS: Source Nasal/Nares
[2021-04-26 13:50] LABS: COVID-19 PCR Negative (Negative)
--- NOTE | 2021-04-26 14:05 | W.PM.HP.N ---
Date of service: 04/26/21 Time of Service: 14:05 Assessment and Plan Assessment and plan (1) Chronic diastolic heart failure: Status: Chronic Assessment and plan: Hold lasix give acute renal failure. No clinical evidence of acute exacerbation. (2) Left lower lobe pneumonia: Status: Acute Assessment and plan: Previous PNA with persistant infiltrate and effusion. No cough, fever. He does have a mildly elevated WBC count. Planning to admit to hospice and given no clinical signs/sxs of active PNA, will not initiate antibiotic at this time. (3) Altered mental status: Status: Acute Assessment and plan: CT head on 01/03/2021 was without any metastatic disease findings. Mild WBC count elevation. Has become more alert since time of arrival. (4) Metastatic malignant neoplasm to prostate: Status: Chronic Assessment and plan: Pain in hips; metastatic jackeline mets. Given his ARF, will decrease MS Contin dose from 30mg po BID to 15mg po at night. Initiate morphine solution, 5mg Q1H prn. Cont Fentanyl patches; 37mcg Q48H. Palliative consult. Comfort measures. Planning on convering to hospice care. (5) Acute renal failure: Status: Acute Assessment and plan: Creatinine 7.7. Pre-renal d/t poor intake. Given IV bolus in the ED. Planning on hospice care. History of Present Illness History of Present Illness Chief Complaint: Altered mental status Narrative: This is a 80 yo male with a PMH of metastatic prostate cancer to bone, CKD stage 3, HTN, CHF, obesity, chronic diastolic CHF, PAD. For the last several days he has noted to be more confused. His ex- who cares for him was concerned that this could be secondary to a UTI which has been noted in the past. He was evaluated by Dr Perez on 04/14/21 with palliative care. At that time the patient had not decided on hospice care, but this is now a consideration. On presentation he was describing pain in both hips. He has chronic pain from metastatic lesions to bone. He is due for a change of his Fentanyl patches today (due at 1100 AM). His WBC count was 11.5. HGB 9.5. Na 147. K 4.8. BUN 124. Creatinine 7.7. Chest and abd xrays with persistent left basilar infiltrate and pleural effusion. Nonspecific bowel gas pattern. Extensive blastic metastatic osseous disease. A bolus of 1L NS infused in the ED. Review of Systems All systems reviewed & are unremarkable except as noted in HPI and below (Obtained from his former ) [facility] Medical History Acute alteration in mental status Acute congestive heart failure Acute on chronic diastolic CHF (congestive heart failure) Acute on chronic right-sided congestive heart failure AWILDA (acute kidney injury) Anemia Atelectasis Bacteremia due to Streptococcus Bone metastases Prostate ca Chronic diastolic heart failure Chronic kidney disease, stage 3 Chronic wound of extremity Decubital ulcer Deficiency anemia Edema Group G streptococcal infection Hx of acute renal failure Hypercapnic respiratory failure Hyperlipidemia Hypertension Hypoventilation associated with obesity Left foot infection Left foot pain Left rotator cuff tear Lichen sclerosus Memory loss Metastatic malignant neoplasm to prostate Mononeuropathy of left lower extremity Nocturnal hypoxia Nonsustained paroxysmal supraventricular tachycardia Obesity (BMI 30-39.9) Obstructive sleep apnea PAD (peripheral artery disease) Peripheral edema Peripheral neuropathy due to chemotherapy Physeal fracture of phalanx of toe of left foot Pneumonia Pneumonia Pressure ulcer Buttocks Pulmonary hypertension Respiratory failure with hypoxia and hypercapnia Sleep apnea TBI (traumatic brain injury) Toxic metabolic encephalopathy Family History Mother Lung cancer Social History Smoking/Tobacco Use Status: Never Smoking risk assessment performed?: Yes Alcohol Intake: current Alcohol Intake frequency: a few times a month Alcohol type: hard liquor Drug use: Never Substance use type: does not use Household members: spouse Number of Children: 2 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; [employer]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 Do you feel safe at home: Yes (unable to answer) Do you feel safe in your relationship?: Yes Additional Social history: Moved from [place] to [place] in 2017 to be cared for by ( x10 years previously) Meds Allergies and Home Medications Allergies Allergy/AdvReac Type Severity Reaction Status Date / Time No Known Drug Allergies Allergy Unverified 04/26/21 11:41 Home Medications Medication Instructions Recorded Confirmed Type Lupron Depot (4 month) 30 mg IM .Q4 months 09/25/17 04/26/21 History denosumab 120 mg/1.7 mL (70 mg/mL) 120 mg SC Q6W 12/10/18 04/26/21 History subcutaneous solution lisinopril 5 mg tablet 10 mg PO DAILY #2 tab-cap 12/10/18 04/26/21 History multivitamin 1 tab PO DAILY 12/10/18 04/26/21 History clotrimazole 1 applic TOPICAL TID #30 gm 09/15/19 04/26/21 Rx vits A and D-white pet-lanolin 1 applic TOPICAL TID #56 gm 09/15/19 04/26/21 Rx zinc oxide 1 applic TOPICAL TID #30 gm 09/15/19 04/26/21 Rx fentanyl 1 patch TRANSDERMAL Q48H 01/03/21 04/26/21 History fentanyl 25 mcg/hr transdermal 25 mcg TRANSDERMAL Q48H #5 ea MDD 04/14/21 04/26/21 Rx patch 37 gabapentin 400 mg capsule 400 mg PO TID #3 tab-cap 04/14/21 04/26/21 Rx ibuprofen 600 mg tablet 600 mg PO TID #90 tab 04/15/21 04/26/21 Rx omeprazole 20 mg capsule,delayed 20 mg PO DAILY #90 cap 04/15/21 04/26/21 Rx release acetaminophen [Acetaminophen Extra 1,000 mg PO TID 04/26/21 04/26/21 History Strength] furosemide 40 mg PO DAILY 04/26/21 04/26/21 History morphine 30 mg PO BID 04/26/21 04/26/21 History polyethylene glycol 3350 [GlycoLax] 17 g PO DAILY PRN 04/26/21 04/26/21 History Exam Const General: cooperative and acute distress (c/o pain in hips.) Nutritional Appearance: overweight Orientation: awake, oriented to person and oriented to place Eyes Sclera: sclerae normal Pupils: PERRL Resp Effort & Inspection: normal respiratory effort Auscultation: clear to auscultation bilaterally Cardio Rate: regular rate Rhythm: regular rhythm Heart Sounds: S1 normal and S2 normal GI Palpation: soft and nontender Skin General skin exam: other (R distal lateral leg; granulating wound w/o surrounding erythema.) Neuro General: patient awake and no focal motor deficits Cranial Nerves: facial strength normal Speech: speech normal Extrem General: no calf tenderness Right lower extremity: hip/thigh Results Labs Result diagrams: 04/26/21 11:30 04/26/21 11:30 Labs: Laboratory Results - last 24 hr 04/26/21 04/26/21 04/26/21 11:25 11:30 11:30 WBC 11.50 H RBC 2.89 L Hgb 9.5 L Hct 30.7 L MCV 106.2 H MCH 32.9 MCHC 30.9 L RDW 16.6 H Plt Count 338 MPV 9.2 Immature Gran % 0.0 Neutrophils % 78.0 Band Neutrophils % 3 Lymphocytes % 13.0 Monocytes % 6.0 Eosinophils % 0.0 Basophils % 0.0 Nucleated RBC % 0 Absolute Neutrophils 9.32 H Absolute Lymphocytes 1.50 Absolute Monocytes 0.69 Absolute Eosinophils 0.00 Absolute Basophils 0.00 RBC Morphology See Below Macrocytosis 2+ VBG Lactate Sodium 147 H Potassium 4.8 Chloride 106 Carbon Dioxide 23.8 Anion Gap 17.2 H BUN 124 H* Creatinine 7.7 H* Estimated GFR/1.73 m2 6.84 Glucose 151 H Calcium 7.8 L Magnesium 3.0 H Total Bilirubin 0.3 AST 62 H ALT 17 Alkaline Phosphatase 164 H Total Protein 6.8 Albumin 2.4 L Urine Color Dark Yellow Urine Clarity Clear Urine pH 5.0 Ur Specific [place] 1.025 Urine Protein 30 H Urine Ketones Negative Urine Blood Trace-intact H Urine Nitrite Negative Urine Bilirubin Negative Urine Urobilinogen 0.2 Ur Leukocyte Esterase Negative Urine RBC 5-10 H Urine WBC Negative Ur Epithelial Cells Few Urine Crystals Moderate Amorphous Urine Bacteria Negative Urine Casts 0-2 Fine Granular Urine Mucus Negative Ur Culture Indicated? No Urine Glucose Negative COVID-19 Source SARS-CoV-2 (PCR) 04/26/21 04/26/21 11:30 12:35 WBC RBC Hgb Hct MCV MCH MCHC RDW Plt Count MPV Immature Gran % Neutrophils % Band Neutrophils % Lymphocytes % Monocytes % Eosinophils % Basophils % Nucleated RBC % Absolute Neutrophils Absolute Lymphocytes Absolute Monocytes Absolute Eosinophils Absolute Basophils RBC Morphology Macrocytosis VBG Lactate 1.5 H Sodium Potassium Chloride Carbon Dioxide Anion Gap BUN Creatinine Estimated GFR/1.73 m2 Glucose Calcium Magnesium Total Bilirubin AST ALT Alkaline Phosphatase Total Protein Albumin Urine Color Urine Clarity Urine pH Ur Specific [place] Urine Protein Urine Ketones Urine Blood Urine Nitrite Urine Bilirubin Urine Urobilinogen Ur Leukocyte Esterase Urine RBC Urine WBC Ur Epithelial Cells Urine Crystals Urine Bacteria Urine Casts Urine Mucus Ur Culture Indicated? Urine Glucose COVID-19 Source Nasal/Nares SARS-CoV-2 (PCR) Negative Last Vital Signs Temp 36.8 C 04/26/21 11:17 Pulse 81 04/26/21 12:46 Resp 11 L 04/26/21 12:46 BP 103/42 L 04/26/21 12:46 Pulse Ox 98 04/26/21 12:46
--- NOTE | 2021-04-26 15:13 | RESPIRATORY ---
Pt's baseline is 2L [place] 24/7 at home. DME is [employer].
--- NOTE | 2021-04-26 18:39 | PCNE_ITS ---
Date of service: 04/26/21 Time of Service: 18:39 History of Present Illness History of Present Illness Chief Complaint: renal failure Narrative: I had met Lester and his for the first time 2 weeks ago. It was a home visit concentrating on goals of care. He has chronic kidney disease, peripheral artery disease and metastatic prostate cancer. Over the last 5 days his condition significantly worsened. He was weaker and required lift assist and helpful neighbors to get him to the commode, etc. His had contacted me this morning about feel going on hospice. Within a few hours his condition worsened and she brought him to the emergency room. In the emergency room he was found to have a creatinine over 7. Approximately 10 days earlier it was 1.8. His mental status had deteriorated. Lester did not recognize me. He was unable to answer many of my questions. His filled in the blanks. Assessment and Plan Assessment and plan (1) Acute renal failure: Status: Acute (2) Deficiency anemia: Status: Acute (3) Chronic diastolic heart failure: Status: Chronic (4) PAD (peripheral artery disease): Status: Suspected (5) Altered mental status: Status: Acute (6) Comfort measures only status: Status: Acute Assessment and plan: Benny, his and I spoke for some time. We talked about his recent change regarding his kidneys. We talked about his chronic pain. In the end both Krish and his agreed that comfort measures only status was in keeping with his wishes. He would like to go home. I am not certain that his can handle him at home. She needed help four out of the last 5 days because of his weakness. He is a big man and it took 2 of us to straighten him out in bed. She does have some home care help insurance. I have asked care management to look into whether or not she could have significantly more care at home so that she would be able to care for him. He definitely would like to go home but understands that that might not be possible. His CODE STATUS is complete with a COLST. He is a DNR/DNI. I have put in a hospice consult per family's request. We did talk about what hospice can do and how the family would still be expected to be the main caregivers I have put in some comfort orders for him for pain and anxiety. I understand that he is in renal failure and that he will probably have accumulation of toxins. Both he and his agreed to not have investigation of this or aggressive care. I will see him in the morning primarily to give him some time to think about next steps. I have spoken with Abisai Kolb MD who has given me permission to write orders. (7) Palliative care patient: Status: Acute Review of Systems Narrative: His state that he has become much much weaker, mental status changes, continues to complain about pain Unobtainable due to mental condition [facility] Medical History Acute alteration in mental status Acute congestive heart failure Acute on chronic diastolic CHF (congestive heart failure) Acute on chronic right-sided congestive heart failure AWILDA (acute kidney injury) Anemia Atelectasis Bacteremia due to Streptococcus Bone metastases Prostate ca Chronic diastolic heart failure Chronic kidney disease, stage 3 Chronic wound of extremity Decubital ulcer Deficiency anemia Edema Group G streptococcal infection Hx of acute renal failure Hypercapnic respiratory failure Hyperlipidemia Hypertension Hypoventilation associated with obesity Left foot infection Left foot pain Left rotator cuff tear Lichen sclerosus Memory loss Metastatic malignant neoplasm to prostate Mononeuropathy of left lower extremity Nocturnal hypoxia Nonsustained paroxysmal supraventricular tachycardia Obesity (BMI 30-39.9) Obstructive sleep apnea PAD (peripheral artery disease) Peripheral edema Peripheral neuropathy due to chemotherapy Physeal fracture of phalanx of toe of left foot Pneumonia Pneumonia Pressure ulcer Buttocks Pulmonary hypertension Respiratory failure with hypoxia and hypercapnia Sleep apnea TBI (traumatic brain injury) Toxic metabolic encephalopathy Family History Mother Lung cancer Social History Smoking/Tobacco Use Status: Never Smoking risk assessment performed?: Yes Alcohol Intake: current Alcohol Intake frequency: a few times a month Alcohol type: hard liquor Drug use: Never Substance use type: does not use Household members: spouse Number of Children: 2 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 He was a two-person assist to straighten up his back. He dozed off during our conversation in my examination. He did have significant twitching of his muscles and was constantly rubbing his arms. Resp Effort & Inspection: abnormal respiratory pattern Auscultation: abnormal I/E ratio and no wheezes Cardio Rate: regular rate Heart Sounds: murmur GI Palpation: soft Skin General skin exam: atrophy, dry skin and ecchymosis Psych Attitude: cooperative Results Last Vital Signs Temp 98.2 F 04/26/21 13:30 Pulse 78 04/26/21 13:30 Resp 20 04/26/21 13:30 BP 103/65 04/26/21 13:30 Pulse Ox 97 04/26/21 15:10 Labs Result diagrams: 04/26/21 11:30 04/26/21 11:30 Labs: Laboratory Results - last 24 hr 04/26/21 04/26/21 04/26/21 11:25 11:30 11:30 WBC 11.50 H RBC 2.89 L Hgb 9.5 L Hct 30.7 L MCV 106.2 H MCH 32.9 MCHC 30.9 L RDW 16.6 H Plt Count 338 MPV 9.2 Immature Gran % 0.0 Neutrophils % 78.0 Band Neutrophils % 3 Lymphocytes % 13.0 Monocytes % 6.0 Eosinophils % 0.0 Basophils % 0.0 Nucleated RBC % 0 Absolute Neutrophils 9.32 H Absolute Lymphocytes 1.50 Absolute Monocytes 0.69 Absolute Eosinophils 0.00 Absolute Basophils 0.00 RBC Morphology See Below Macrocytosis 2+ VBG Lactate Sodium 147 H Potassium 4.8 Chloride 106 Carbon Dioxide 23.8 Anion Gap 17.2 H BUN 124 H* Creatinine 7.7 H* Estimated GFR/1.73 m2 6.84 Glucose 151 H Calcium 7.8 L Magnesium 3.0 H Total Bilirubin 0.3 AST 62 H ALT 17 Alkaline Phosphatase 164 H Total Protein 6.8 Albumin 2.4 L Urine Color Dark Yellow Urine Clarity Clear Urine pH 5.0 Ur Specific [place] 1.025 Urine Protein 30 H Urine Ketones Negative Urine Blood Trace-intact H Urine Nitrite Negative Urine Bilirubin Negative Urine Urobilinogen 0.2 Ur Leukocyte Esterase Negative Urine RBC 5-10 H Urine WBC Negative Ur Epithelial Cells Few Urine Crystals Moderate Amorphous Urine Bacteria Negative Urine Casts 0-2 Fine Granular Urine Mucus Negative Ur Culture Indicated? No Urine Glucose Negative COVID-19 Source SARS-CoV-2 (PCR) 04/26/21 04/26/21 11:30 12:35 WBC RBC Hgb Hct MCV MCH MCHC RDW Plt Count MPV Immature Gran % Neutrophils % Band Neutrophils % Lymphocytes % Monocytes % Eosinophils % Basophils % Nucleated RBC % Absolute Neutrophils Absolute Lymphocytes Absolute Monocytes Absolute Eosinophils Absolute Basophils RBC Morphology Macrocytosis VBG Lactate 1.5 H Sodium Potassium Chloride Carbon Dioxide Anion Gap BUN Creatinine Estimated GFR/1.73 m2 Glucose Calcium Magnesium Total Bilirubin AST ALT Alkaline Phosphatase Total Protein Albumin Urine Color Urine Clarity Urine pH Ur Specific [place] Urine Protein Urine Ketones Urine Blood Urine Nitrite Urine Bilirubin Urine Urobilinogen Ur Leukocyte Esterase Urine RBC Urine WBC Ur Epithelial Cells Urine Crystals Urine Bacteria Urine Casts Urine Mucus Ur Culture Indicated? Urine Glucose COVID-19 Source Nasal/Nares SARS-CoV-2 (PCR) Negative
[2021-04-27] MEDS: Lidocaine 2% Jelly 11 ML SYR UR (00:03)
--- NOTE | 2021-04-27 07:09 | W.PALPGNOTE ---
Date of service: 04/27/21 Time of Service: 07:09 Assessment and Plan Assessment and plan (1) Acute renal failure: Status: Acute (2) Chronic diastolic heart failure: Status: Chronic (3) PAD (peripheral artery disease): Status: Suspected (4) Comfort measures only status: Status: Acute Assessment and plan: I spoke with his Lotus regarding home care versus hospital care Both Manjit and Lotus agree with comfort care measures and no investigation of his acute renal failure. Manjit would like to get home to at home. His Lotus is not certain she can care for him at home. The plan at this point is to have a hospice consult. This may not be able to happen until tomorrow. I attempted to call care management but was unable to reach them at this time. Hopefully they will be able to meet with Lotus and work out plan I did speak to Hospice. They will try to see him Wed AM. Discussed plan with Dr Bryan Subjective Subjective Interval history since last seen: Lester states that he is about the same. He does remember our conversation from yesterday. He did think about comfort care, hospice, etc. and agrees with what he decided on yesterday. Staff has put in a Bansal He wants to go home if possible. Exam Narrative Exam Narrative: He is lying in bed. His heart is regular. His lungs very little aeration. His abdomen is soft. Bansal is in place. His mentation seems a little better than yesterday but certainly not what it was 2 weeks ago Objective Last Vital Signs Temp 98.2 F 04/26/21 13:30 Pulse 78 04/26/21 13:30 Resp 20 04/26/21 13:30 BP 103/65 04/26/21 13:30 Pulse Ox 97 04/26/21 15:10 Laboratory Results - last 24 hr 04/26/21 04/26/21 04/26/21 11:25 11:30 11:30 WBC 11.50 H RBC 2.89 L Hgb 9.5 L Hct 30.7 L MCV 106.2 H MCH 32.9 MCHC 30.9 L RDW 16.6 H Plt Count 338 MPV 9.2 Immature Gran % 0.0 Neutrophils % 78.0 Band Neutrophils % 3 Lymphocytes % 13.0 Monocytes % 6.0 Eosinophils % 0.0 Basophils % 0.0 Nucleated RBC % 0 Absolute Neutrophils 9.32 H Absolute Lymphocytes 1.50 Absolute Monocytes 0.69 Absolute Eosinophils 0.00 Absolute Basophils 0.00 RBC Morphology See Below Macrocytosis 2+ VBG Lactate Sodium 147 H Potassium 4.8 Chloride 106 Carbon Dioxide 23.8 Anion Gap 17.2 H BUN 124 H* Creatinine 7.7 H* Estimated GFR/1.73 m2 6.84 Glucose 151 H Calcium 7.8 L Magnesium 3.0 H Total Bilirubin 0.3 AST 62 H ALT 17 Alkaline Phosphatase 164 H Total Protein 6.8 Albumin 2.4 L Urine Color Dark Yellow Urine Clarity Clear Urine pH 5.0 Ur Specific [place] 1.025 Urine Protein 30 H Urine Ketones Negative Urine Blood Trace-intact H Urine Nitrite Negative Urine Bilirubin Negative Urine Urobilinogen 0.2 Ur Leukocyte Esterase Negative Urine RBC 5-10 H Urine WBC Negative Ur Epithelial Cells Few Urine Crystals Moderate Amorphous Urine Bacteria Negative Urine Casts 0-2 Fine Granular Urine Mucus Negative Ur Culture Indicated? No Urine Glucose Negative COVID-19 Source SARS-CoV-2 (PCR) 04/26/21 04/26/21 11:30 12:35 WBC RBC Hgb Hct MCV MCH MCHC RDW Plt Count MPV Immature Gran % Neutrophils % Band Neutrophils % Lymphocytes % Monocytes % Eosinophils % Basophils % Nucleated RBC % Absolute Neutrophils Absolute Lymphocytes Absolute Monocytes Absolute Eosinophils Absolute Basophils RBC Morphology Macrocytosis VBG Lactate 1.5 H Sodium Potassium Chloride Carbon Dioxide Anion Gap BUN Creatinine Estimated GFR/1.73 m2 Glucose Calcium Magnesium Total Bilirubin AST ALT Alkaline Phosphatase Total Protein Albumin Urine Color Urine Clarity Urine pH Ur Specific [place] Urine Protein Urine Ketones Urine Blood Urine Nitrite Urine Bilirubin Urine Urobilinogen Ur Leukocyte Esterase Urine RBC Urine WBC Ur Epithelial Cells Urine Crystals Urine Bacteria Urine Casts Urine Mucus Ur Culture Indicated? Urine Glucose COVID-19 Source Nasal/Nares SARS-CoV-2 (PCR) Negative
--- NOTE | 2021-04-27 12:29 | W.PM.PROGNOT ---
Date of Service Date of service: 04/27/21 Time of Service: 12:29 Assessment and Plan Assessment and plan (1) Comfort measures only status: Status: Acute Assessment and plan: Pain from jackeline mets managed. Intermittently awake and alert. Oriented to person and at times place. Subjective Subjective Patient reports: no new complaints and afebrile; denies nausea and vomiting Interval history since last seen: Ate fruit and has taken in oral liquids. Pain controlled. Exam Narrative Exam Narrative: Pt is lying supine with ex- by his bedside. He ate bites of watermelon while I was in the room. Const General: cooperative and no acute distress Nutritional Appearance: average body habitus Orientation: awake Objective Last Vital Signs Temp 36.8 C 04/26/21 13:30 Pulse 78 04/26/21 13:30 Resp 20 04/26/21 13:30 BP 103/65 04/26/21 13:30 Pulse Ox 97 04/26/21 15:10 Laboratory Results - last 24 hr 04/26/21 12:35 COVID-19 Source Nasal/Nares SARS-CoV-2 (PCR) Negative
--- NOTE | 2021-04-27 15:56 | PDOC.CMIN ---
- If Service Date Differs Date of service: 04/27/21 Time of Service: 15:56 Care Management Initial Assess REASON FOR HOSPITALIZATION:: Chronic CHF. Acute renal failure PAST MEDICAL HISTORY/PAST SURGICAL HISTORY:: Medical History . Acute alteration in mental status. Acute congestive heart failure. Acute on chronic diastolic CHF (congestive heart failure). Acute on chronic right-sided congestive heart failure. AWILDA (acute kidney injury). Anemia. Atelectasis. Bacteremia due to Streptococcus. Bone metastases. Prostate ca. Chronic diastolic heart failure. Chronic kidney disease, stage 3. Chronic wound of extremity. Decubital ulcer. Deficiency anemia. Edema. Group G streptococcal infection. Hx of acute renal failure. Hypercapnic respiratory failure. Hyperlipidemia. Hypertension. Hypoventilation associated with obesity. Left foot infection. Left foot pain. Left rotator cuff tear. Lichen sclerosus. Memory loss. Metastatic malignant neoplasm to prostate. Mononeuropathy of left lower extremity. Nocturnal hypoxia. Nonsustained paroxysmal supraventricular tachycardia. Obesity (BMI 30-39.9). Obstructive sleep apnea. PAD (peripheral artery disease). Peripheral edema. Peripheral neuropathy due to chemotherapy. Physeal fracture of phalanx of toe of left foot. Pneumonia. Pneumonia. Pressure ulcer. Buttocks. Pulmonary hypertension. Respiratory failure with hypoxia and hypercapnia. Sleep apnea. TBI (traumatic brain injury). Toxic metabolic encephalopathy. Family History . Mother. Lung cancer PREVIOUS FUNCTIONAL STATUS/SOCIAL/FAMILY SUPPORTS:: Lester lives with his Lotus in [place], [place] in a single family home. They do have a boarder who helps with meals and other tasks around the home. 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 He uses a walker to ambulate. His mobility is very limited due to his neuropathy. He needs assistance with care which his spouse provides with the help of private caregivers. CURRENT FUNCTIONAL STATUS:: Lester was lying in bed when CM met with him. He was pleasant and smiled at CM, well known to him from previous admissions. Lotus, Lester's was also present and joined in the conversation. Per Alva, Lester has been failing at home and his care has become more challenging. Yesterday Lester and Lotus met with Dr. Perez and made the decision for him to go on comfort care. He had a hospice consult today but will likely remain at [facility] for end of life care as Lotus lacks sufficient support at home for home hospice. ADVANCE DIRECTIVES:: None on file Has patient been provided with info about the portal/API?: Yes Did the patient sign up for the portal?: No INSURANCE COVERAGE / FINANCIAL ISSUES:: Medicare. [facility] [employer] CURRENT HOME/COMMUNITY SERVICES/EQUIPMENT:: Caregivers through [employer] for 3 hours per day paid for by Lester's shelter care insurance. PRIMARY CARE PHYSICIAN:: Tonny Leslie MD POTENTIAL DISCHARGE NEEDS:: end of life care PLAN:: Lester will yoel remain at [facility] for end of life care. He is currently on comfort measures and has acute renal failure which will not be investigated or treated at this time. will continue to support Ben[facility] through this process.
[2021-04-28] MEDS: Normal Saline Flush 10 ML SYR IVP ×2 (06:00→10:20)
[2021-04-28] MEDS: Acetaminophen 650 MG SUPP PR (08:03)
[2021-04-28] MEDS: LORazepam 2 MG/ML VIAL 1 MG IVP (10:20)
--- NOTE | 2021-04-28 10:38 | PDOC.CMPRO ---
- If Service Date Differs Date of service: 04/28/21 Time of Service: 10:38 Care Management Progress Note S/O:Lester was resting comfortably each time CM came to see him. He is no longer responding to verbal stimuli but appears peaceful and relaxed. His Lotus has been at his side all day and clergy have come to support her. Lester and Lotus's daughter is expected to arrive from out of state tonight and their son will be here tomorrow. Lotus has not yet made decisions about final arrangements except to state that Lester is to be cremated. CM provided her with a list of facilities that provide that service. A: Lester is a 80 year old man admitted on 04/26/21 with altered mental status P:Lester will likely remain at [facility] for end of life care. He is currently on comfort measures and has acute renal failure which will not be investigated or treated at this time. CM will continue to support Lester and Lotus through this process.
--- NOTE | 2021-04-28 13:22 | W.PALPGNOTE ---
Date of service: 04/28/21 Time of Service: 07:23 Assessment and Plan Assessment and plan (1) Acute kidney failure: Status: Acute (2) Altered mental status: Status: Acute (3) Comfort measures only status: Status: Acute Assessment and plan: Lester has definitely taken at turn for the worse. He is unresponsive at this time. I would expect that this will continue. He appears to be starting the active dying stage. I did speak to his Lotus. She does not feel that she could care for him at home and does wish that he stay in the hospital. Family is coming. I would expect that he has hours to days to live Subjective Subjective Interval history since last seen: I spoke with Dr. Kaye who stated that yesterday felt was doing quite well. I went to see fell and he was unresponsive. He had 3 people helping to turn him and bathe him. He did not respond to any of it. Staff tell me that yesterday he did not want pain medication and refused multiple different medications and help. Exam Narrative Exam Narrative: Unresponsive. Breathing normal. He does have a sacral wound which is about 2 cm long on his right buttocks near his buttocks crease. There is a Mepilex border in place Objective Last Vital Signs Temp 98.2 F 04/26/21 13:30 Pulse 78 04/26/21 13:30 Resp 20 04/26/21 13:30 BP 103/65 04/26/21 13:30 Pulse Ox 97 04/26/21 15:10
--- NOTE | 2021-04-28 15:49 | W.PM.PROGNOT ---
Date of Service Date of service: 04/28/21 Time of Service: 15:49 Assessment and Plan Assessment and plan (1) Comfort measures only status: Status: Acute Assessment and plan: Remains unresponsive and in no acute distress. family has remained at bedside continue end of life care. discussed with Dr Bryant Subjective Subjective Interval history since last seen: patient remains sedate and appearing comfortable. no distress noted. Exam Narrative Exam Narrative: Unresponsive. Breathing normal. He does have a sacral wound which is about 2 cm long on his right buttocks near his buttocks crease. There is a Mepilex border in place Cardio Rate: regular rate Rhythm: regular rhythm GI Palpation: soft Skin General skin exam: atrophy, dry skin and ecchymosis Objective Last Vital Signs Temp 36.8 C 04/26/21 13:30 Pulse 78 04/26/21 13:30 Resp 20 04/26/21 13:30 BP 103/65 04/26/21 13:30 Pulse Ox 97 04/26/21 15:10
--- NOTE | 2021-04-29 11:12 | PDOC.CMPRO ---
- If Service Date Differs Date of service: 04/29/21 Time of Service: 11:12 Care Management Progress Note S/O:Lester remains unresponsive on comfort care. His , daughter and son have all spent time with him today. He has been given medication to help with restlessness when needed, but appears calm and peaceful most of the time. CM assisted the family with making final arrangements which will be handled through the [employer] [facility] . A: Lester is a 80 year old man admitted on 04/26/21 with altered mental status P:Lester will remain at [facility] for end of life care. He is currently on comfort measures. Final arrangements will be made through the [employer] [facility] [place] . CM will continue to support Lester and his family through this process.
[2021-04-29] MEDS: Normal Saline Flush 10 ML SYR IVP ×2 (13:40→23:25)
[2021-04-29] MEDS: LORazepam 2 MG/ML VIAL 1 MG IVP (13:40)
[2021-04-29] MEDS: ACETAMINOPHEN 1,000 MG/100 ML BTL 400 MG IVPB (13:40)
--- NOTE | 2021-04-29 15:48 | W.PM.PROGNOT ---
Date of Service Date of service: 04/29/21 Time of Service: 15:48 Assessment and Plan Assessment and plan (1) Comfort measures only status: Status: Acute Assessment and plan: Remains unresponsive and in no acute distress. family has remained at bedside continue end of life care. discussed with Dr Bryant Subjective Subjective Interval history since last seen: resting quietly with family by his side Exam Cardio Rate: regular rate Rhythm: regular rhythm GI Palpation: soft Skin General skin exam: atrophy, dry skin and ecchymosis Objective Last Vital Signs Temp 36.8 C 04/26/21 13:30 Pulse 78 04/26/21 13:30 Resp 20 04/26/21 13:30 BP 103/65 04/26/21 13:30 Pulse Ox 97 04/26/21 15:10
[2021-04-29] MEDS: MORPHine 4 MG/ML SYR IVP (23:24)
[2021-04-30] MEDS: LORazepam 2 MG/ML VIAL 1 MG IVP ×3 (00:01→12:10)
--- NOTE | 2021-04-30 07:54 | PDOC.CMPRO ---
- If Service Date Differs Date of service: 04/30/21 Time of Service: 07:54 Care Management Progress Note Lester's family and a member of the clergy remained with him throughout the morning. He was unresponsive but appeared to be calm and comfortable. Lester peacefully, surrounded by family, at 12:30 pm.. arrangements have been made through the [employer] [facility] [place] .
[2021-04-30] MEDS: MORPHine 4 MG/ML SYR IVP ×4 (09:10→12:33)
[2021-04-30] MEDS: Hyoscyamine 0.125 MG SL/ORAL/CHEW SL (09:10)
[2021-04-30] MEDS: Scopolamine 1 MG/3 DAYS PATCH TD (09:30)
[2021-04-30] MEDS: Glycopyrrolate 0.2 MG/1 ML VIAL IVP ×2 (09:40→11:24)
--- NOTE | 2021-04-30 10:06 | W.PM.PROGNOT ---
Date of Service Date of service: 04/30/21 Time of Service: 10:06 Assessment and Plan Assessment and plan (1) Comfort measures only status: Start date: 04/30/21 Start time: 10:11 Status: Acute Assessment and plan: Remains unresponsive and in no acute distress. family has remained at bedside continue end of life care. discussed with Dr Bryant Subjective Subjective Patient reports: other Interval history since last seen: appears comfortable. he is imminent. he does have secretions, will order scopalamine and robinal. otherwise nothing more requested from family. Exam Narrative Exam Narrative: Unresponsive. Breathing with slight pauses and rattling secretions. He does have a sacral wound which is about 2 cm long on his right buttocks near his buttocks crease. There is a Mepilex border in place. Family at bedside. Appears comfortable Objective Last Vital Signs Temp 36.8 C 04/26/21 13:30 Pulse 78 04/26/21 13:30 Resp 20 04/26/21 13:30 BP 103/65 04/26/21 13:30 Pulse Ox 97 04/26/21 15:10
--- NOTE | 2021-04-30 13:09 | W.PM.DDS ---
Date of service: 04/30/21 Time of Service: 13:11 Discharge Sum: Prov Provider Consults: 04/26/21 12:17 Palliative Care Consult [CONS] Routine Consultation Status:: Contact made by MD Clarification:: Manage/follow per spec. Reason for consult:: AMS, Evaluate for possible hospice care 04/26/21 19:20 [employer]er Consult [CONS] Routine Consultation Status:: Follow-up needed Clarification:: Manage/follow per spec. Reason for consult:: dying 04/26/21 19:24 Hospice Consult [CONS] Routine Consultation Status:: Follow-up needed Clarification:: Manage/follow per spec. Reason for consult:: comfort care. Wants to go home on hospice 04/26/21 19:32 Care Management Consult [CONS] Routine Consultation Status:: Follow-up needed Clarification:: Manage/follow per spec. Reason for consult:: Wants to go home on hospice if they can get help Worked w Alva in the past Discharge Sum: Diag PCOD Cause of : Prostate Cancer Metastatic to Multiple Sites Contributing Factors (1) Comfort measures only status: Contributing factors: patient decided to go on comfort measures after realizing he was imminent. Discharge Sum: Summary Date and Time Admission Date: 04/26/2107/01/21 12:13 Date of : 04/30/21 Time of : 12:30 Summary Details: Patient passed from prostate cancer with family by his side. He was on comfort measures, unresponsive for the past couple of days. He did not require any drips for pain, he did require scopolamine and glycoparanate for secretions. He at 1230 today. Additional Data Confirmation of as documented by pronouncing clinician: no pulse, no respirations and no heart sounds Family: at bedside Attending/PCP notified?: Yes Attending Physician: Rusty Lange MD Was code activated?: No Autopsy requested?: No Hospice patient?: Yes
--- NOTE | 2021-04-30 15:32 | NUR.NOTE ---
2 Fentanyl patches covered by a tegaderm, removed from left deltoid post mortem. Disposed of by this writer producer and witnessed by Evelyn Miramontes R.N.
== END 2021-04-30 12:36 | disposition expired | DRG 682 ==
LOC: ER 11:49 → MS 14:15
PROVIDERS: Admitting Provider Family Medicine; Emergency Provider Physician Assistant; PCP Internal Medicine; Visit Provider Family Medicine
DX: N17.9 Acute kidney failure, unspecified (principal); J18.9 Pneumonia, unspecified organism; I50.32 Chronic diastolic (congestive) heart failure; I13.0 Hypertensive heart and chronic kidney disease with heart failure and stage 1 through stage 4 chronic kidney disease, or unspecified chronic kidney disease; C79.51 Secondary malignant neoplasm of bone; E66.2 Morbid (severe) obesity with alveolar hypoventilation; I47.1 Supraventricular tachycardia; L89.152 Pressure ulcer of sacral region, stage 2; Z51.5 Encounter for palliative care; I73.9 Peripheral vascular disease, unspecified; N18.30 Chronic kidney disease, stage 3 unspecified; C61 Malignant neoplasm of prostate; D64.9 Anemia, unspecified; E78.5 Hyperlipidemia, unspecified; I27.20 Pulmonary hypertension, unspecified; Z66 Do not resuscitate; Z87.820 Personal history of traumatic brain injury; Z20.822 Contact with and (suspected) exposure to COVID-19
CPT/HCPCS: 36410; 51701; 80053; 87040; 87077; 87635; 96361; 96365; 99285; 81003; 81015; 83605; 83735; 85025; 87186; 99219; 99225; 99232; 99238; 99284; G0378; J0131; J2060; J2270; J3490